=== PATIENT | female | born 1945 | race Caucasian/White ===

== ENCOUNTER 2016-12-03 17:00 | Inpatient (IN) | payer BC, OTHER ==
[~2016-12-03] VITALS: Ht 162.6 cm; Wt 108.7 kg
[~2016-12-03 17:00] MED LIST: ASPI81TA21 PO; ATV5 PO; CLOP1TAB15 PO; FURO-85 PO; INSPMPHMLG; METO25TA3 PO; NRN/300 PO; NXM/40 PO; OLME1TAB11 PO; RSTOPS OPB
[2016-12-03] MEDS ORDERED: SODIUM CHLORIDE 0.9% 1000ML 1,000 ML IV SCH (17:14)
[2016-12-03 17:25] LABS: BASO % 0.5 %; BASO ABS # 0.03 K/uL (0-0.2); COMPLETE YES; EOS % 2.5 %; HEMATOCRIT 38.6 % (37-47); IG% 0.4 %; LYMPH % 22.5 %; LYMPH ABS # 1.27 K/uL (1.2-3.4); MEAN CELL VOLUME 86.4 fL (80-100); MEAN CORPUSCULAR HEMOGLOBIN 27.7 pg (25-34); MEAN CORPUSCULAR HGB CONC 32.1 g/dl (32-36); MEAN PLATELET VOLUME 10.1 fL (7.4-10.4); MONO % 7.3 %; NEUT % 66.8 %; PLATELET COUNT 230 K/uL (130-400); RED BLOOD COUNT 4.47 M/uL (4.2-5.4); WHITE BLOOD COUNT 5.64 K/uL (4.8-10.8)
[2016-12-03 17:41] LABS: BLOOD UREA NITROGEN 21 mg/dl (7-18); BUN/CREATININE RATIO 25.8 (10-20); CALCIUM 8.6 mg/dl (8.5-10.1); CARBON DIOXIDE 25 mmol/L (21-32); CHLORIDE 111 mmol/L (98-107); CREATININE 0.83 mg/dl (0.60-1.20); GLUCOSE 163 mg/dl (70-99); POTASSIUM 4.5 mmol/L (3.5-5.1); SODIUM 142 mmol/L (136-145)
--- NOTE | 2016-12-03 18:04 | DIAGNOSTIC IMAGING REPORT ---
CT OF THE HEAD WITHOUT CONTRAST CLINICAL HISTORY: Stroke COMPARISON STUDY: Head CT June 10, 2013 and MRI of the brain January 04, 2015. CT DOSE: 709.48 mGy.cm TECHNIQUE: Helical axial images of the head were obtained without IV contrast. Automated exposure control was utilized for the study. FINDINGS: No acute intracranial hemorrhage, midline shift or mass effect is present. Ventricular system is stable. Basilar cisterns are patent. There are no extra-axial collections. Kendrick-white differentiation is maintained. There are no findings to suggest acute dural sinus thrombosis or acute territorial infarct. There are no calvarial abnormalities. Postsurgical findings within the left globe are again noted. Visualized portions of the sinuses and mastoid air cells are clear. IMPRESSION: No acute intracranial findings. Electronically signed by: Subhash Pearl M.D. 12/03/2016 6:03 PM Dictated Date/Time: 12/03/2016 5:59 PM
--- NOTE | 2016-12-03 18:34 | DIAGNOSTIC IMAGING REPORT ---
CHEST ONE VIEW PORTABLE CLINICAL HISTORY: Stroke COMPARISON STUDY: Chest radiograph and chest CT September 14, 2014. FINDINGS: The patient is rotated. An apparent lower mediastinal contour abnormality likely reflects overlying soft tissues. Old right-sided rib fracture is present. There is no evidence of pulmonary edema. There is no consolidation to suggest pneumonia. Mild cardiomegaly is unchanged. Mild elevation of the right hemidiaphragm is unchanged. IMPRESSION: No acute cardiopulmonary findings. Electronically signed by: Subhash Pearl M.D. 12/03/2016 6:32 PM Dictated Date/Time: 12/03/2016 6:31 PM
[2016-12-03] MEDS ORDERED: FURO-85 PO (18:57)
[2016-12-03] MEDS ORDERED: CARB25TA12 PO (19:00)
[2016-12-03] MEDS ORDERED: CYCL0.052 OPB (19:01)
[2016-12-03] MEDS ORDERED: LORA-741 PO (19:02)
[2016-12-03 19:12] LABS: PARTIAL THROMBOPLASTIN RATIO 1.1; PROTHROMBIN TIME (PATIENT) 10.5 SECONDS (9.0-12.0)
[2016-12-03] MEDS ORDERED: ACETAMINOPHEN 325 MG TAB PO PRN (20:45)
[2016-12-03] MEDS ORDERED: ONDANSETRON INJ 2 MG/ML 2 ML VIAL IV PRN (20:45)
[2016-12-03] MEDS ORDERED: MAGNESIUM HYDROXIDE SUSP 30 ML UDC PO PRN (20:45)
[2016-12-03] MEDS ORDERED: ALUMINUM/MAGNESIUM/SIMETH (MAALOX MAX) 30 ML UDC PO PRN (20:45)
[2016-12-03] MEDS ORDERED: POLYETHYLENE (MIRALAX) 17 GM PACK PO PRN (20:45)
--- NOTE | 2016-12-03 20:54 | History and Physical ---
History & Physical Date & Time of Service: Dec 03, 2016 at 20:28 Chief Complaint: Neuro Sx. Primary Care Physician: Damaris Vega M.D. History of Present Illness Patient is a 71 year old female with a pmh of Parkinsons's and CVA that presents with a 1 day history of weakness and facial numbness. The patient reports having a left sided throbbing headache last night and awoke this morning with left sided leg weakness and facial numbness and tingling over the left side of her face and lips. The patient reports that she was weaker on the left side more than usual, having difficulties using the left leg to walk. She mentions that her right side has been weak since her diagnosis of Parkinsons. She states that she contacted her Neurologist Dr. Gage who asked her to change one of her home medications and that she should not be concerned for a neurovascular event. She then contacted Dr. Chand office to make a future appointment and one of [facility] nurses at the clinic she spoke to recommended she come to the ED. She states that she no longer has a headache but is having some residual left sided weakness and facial numbness. She denies any vision changes , nausea, vomiting, abdominal, chest pain, diarrhea, or constipation. Past Medical/Surgical History Medical Problems: (1) CHF (congestive heart failure) Status: Chronic (2) Chronic pain Status: Chronic (3) Coronary artery disease Status: Chronic (4) CVA Status: Chronic (5) Diabetes mellitus type 2 Status: Chronic (6) Hypertensive disorder, systemic arterial Status: Chronic Surgical Problems: (1) Knee joint replacement status Status: Resolved (2) S/P appendectomy Status: Resolved (3) S/P cholecystectomy Status: Resolved Family History CHF (congestive heart failure) Social History Smoking Status: Never Smoker Drug Use: none Occupational Status: retired Immunizations History of Influenza Vaccine: No Influenza Vaccine Date: Mar 30, 2012 History of Tetanus Vaccine?: Yes Tetanus Immunization Date: Jul 11, 2012 History of Pneumococcal: Yes Pneumococcal Date: Jul 11, 2009 History of Hepatitis B Vaccine: No Multi-Drug Resistant Organisms History of MDRO: No Allergies Coded Allergies: Doxycycline (Verified Allergy, Mild, NAUSEA, 12/03/16) NAUSEA PER POST OP ORDERS FOR DOXY AND MINOCYCLINE Minocycline (Verified Allergy, Mild, NAUSEA, 12/03/16) NAUSEA PER POST OP ORDER SET Simvastatin (Verified Allergy, Mild, ALLERGY, 12/03/16) Home Medications Scheduled Aspirin Enteric Coated (Ecotrin Or Generic), 81 MG PO QPM Carbidopa/Levodopa (Sinemet 25MG/100MG), Unknown Dose PO TID Clopidogrel (Plavix), 75 MG PO DAILY Cyclosporine (Ophth) (Restasis), 1 DROP OPB BID Esomeprazole Magnesium (Nexium), 40 MG PO QAM Gabapentin (Neurontin), 300 MG PO BID Insulin Human Lispro (Insulin Humalog Pump ), 1 EA N/A UD Metoprolol Succ (Toprol Xl) (Toprol-Xl), 12.5 MG PO QPM Olmesartan Medoxomil (Benicar), 20 MG PO QPM Scheduled PRN Furosemide (Lasix), 20 MG PO BID PRN for WATER RETENTION Lorazepam (Ativan), 0.5 MG PO Q6H PRN for Anxiety Review of Systems Constitutional: No fever, No chills Eyes: No worsening of vision, No eye pain Respiratory: No cough, No wheezing, No shortness of breath Cardiovascular: No chest pain Abdomen: No pain, No nausea, No vomiting, No diarrhea Genitourinary - Female: No dysuria Neurologic: + weakness, + numbness/tingling, No memory loss, No paralysis, No vertigo Physical Exam Vital Signs Date Time Temp Pulse Resp B/P (MAP) Pulse Ox O2 Delivery O2 Flow Rate FiO2 12/03/16 19:53 62 143/74 98 Room Air 12/03/16 17:55 64 18 162/73 94 Room Air 12/03/16 17:25 94 Room Air 12/03/16 17:23 62 12/03/16 17:08 36.7 64 18 162/63 94 Room Air General Appearance: no apparent distress, + obese Head: normocephalic, atraumatic Eyes: normal inspection, PERRL, EOMI, sclerae normal Neck: supple, no carotid bruits Respiratory/Chest: chest non-tender, lungs clear, normal breath sounds Cardiovascular: regular rate, rhythm, no edema, no murmur Abdomen/GI: normal bowel sounds, non tender, soft Extremities/Musculoskelatal: no calf tenderness, no pedal edema Neurologic/Psych: 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, no motor/sensory deficits, alert, oriented x 3, + depressed affect Diagnostics Laboratory Results Results Past 24 Hours Test 12/03/16 17:04 12/03/16 17:07 12/03/16 18:28 Range/Units White Blood Count 5.64 4.8-10.8 K/uL Red Blood Count 4.47 4.2-5.4 M/uL Hemoglobin 12.4 12.0-16.0 g/dL Hematocrit 38.6 37-47 % Mean Corpuscular Volume 86.4 80-100 fL Mean Corpuscular Hemoglobin 27.7 25-34 pg Mean Corpuscular Hemoglobin Concent 32.1 32-36 g/dl Platelet Count 230 130-400 K/uL Mean Platelet Volume 10.1 7.4-10.4 fL Neutrophils (%) (Auto) 66.8 % Lymphocytes (%) (Auto) 22.5 % Monocytes (%) (Auto) 7.3 % Eosinophils (%) (Auto) 2.5 % Basophils (%) (Auto) 0.5 % Neutrophils # (Auto) 3.77 1.4-6.5 K/uL Lymphocytes # (Auto) 1.27 1.2-3.4 K/uL Monocytes # (Auto) 0.41 0.11-0.59 K/uL Eosinophils # (Auto) 0.14 0-0.5 K/uL Basophils # (Auto) 0.03 0-0.2 K/uL RDW Standard Deviation 43.7 36.4-46.3 fL RDW Coefficient of Variation 13.8 11.5-14.5 % Immature Granulocyte % (Auto) 0.4 % Immature Granulocyte # (Auto) 0.02 0.00-0.02 K/uL Sodium Level 142 136-145 mmol/L Potassium Level 4.5 3.5-5.1 mmol/L Chloride Level 111 98-107 mmol/L Carbon Dioxide Level 25 21-32 mmol/L Anion Gap 6.0 3-11 mmol/L Blood Urea Nitrogen 21 7-18 mg/dl Creatinine 0.83 0.60-1.20 mg/dl Est Creatinine Clear Calc Drug Dose 76.0 ml/min Estimated GFR () 82.8 Estimated GFR (Non- 71.4 BUN/Creatinine Ratio 25.8 10-20 Random Glucose 163 70-99 mg/dl Calcium Level 8.6 8.5-10.1 mg/dl Troponin I < 0.015 0-0.045 ng/ml Bedside Glucose 159 70-90 mg/dl Prothrombin Time 10.5 9.0-12.0 SECONDS Prothromb Time International Ratio 1.0 0.9-1.1 Activated Partial Thromboplast Time 27.3 21.0-31.0 SECONDS Partial Thromboplastin Ratio 1.1 Impression Assessment and Plan Patient is a 71 year old female that presents with a 1 day history of facial numbness and left leg weakness 1) Parkinsonism - Symptoms most likely 2/2 to acute Parkinsonian changes - Consult Neurologist Dr. Gage - Continue home Carbidopa/ Levadopa - Continue home Gabapentin 2) R/O CVA - CT Head shows no acute abnormalities - MRI brain ordered - Resume home Aspirin and Plavix 3) Hypertension - Continue home Benicar - Continue home Furosemide 4) Diabetes Mellitus - Humalog Insulin Pump 5) Anxiety - Ativan 6) GI Prophylaxis - Protonix 40mg qPM 7) DVT Prophylaxis - SCDs 8) Code Status - Full Resuscitation Level of Care Med/Surg Resuscitation Status FULL RESUSCITATION VTE Prophylaxis VTE Risk Assessment Done? Y/N: Yes Risk Level: Moderate Given or contraindicated: Jose Chavira SCD's Assessment and Plan Attending Addendum: I have physically seen and examined this patient, have directed their medical care, have supervised the medical residents activities, and agree with the H&P as noted above, with the following changes: NONE
[2016-12-03] MEDS ORDERED: LORAZEPAM 0.5 MG TAB PO PRN (21:00)
[2016-12-03] MEDS ORDERED: FUROSEMIDE 20 MG TAB PO PRN (21:00)
[2016-12-03] MEDS ORDERED: IV FLUIDS COMPLETED PRN (22:00)
[2016-12-03 22:15] VITALS: BP 151/79; PULSE 60; TEMP 36.6; O2SAT 96; Ht 162.6 cm; Wt 108.7 kg
[2016-12-03] MEDS ORDERED: GLUCAGON FOR INJ 1 MG VIAL SQ PRN (23:00)
[2016-12-03] MEDS ORDERED: GLUCOSE 10 TABS/TUBE PO PRN (23:00)
[2016-12-03] MEDS ORDERED: DEXTROSE 50% 50 ML SYR IV PRN (23:00)
[2016-12-03] MEDS ORDERED: GLUCOSE 40% GEL 15 GM TUBE PO PRN (23:00)
[2016-12-03] MEDS ORDERED: INSULIN HUMAN LISPRO (humaLOG) 100 UNITS/ML VIAL SC PRN (23:00)
[2016-12-03] MEDS: CARBIDOPA/LEVODOPA 25/100MG TAB PO SCH (23:44)
[2016-12-03] MEDS: GABAPENTIN 300 MG CAP PO SCH (23:44)
[2016-12-03] MEDS: METOPROLOL SUCC 25MG EXT REL TAB PO SCH (23:44)
[2016-12-03] MEDS: OLMESARTAN MEDOXOMIL 20 MG TAB PO SCH (23:44)
[2016-12-03] MEDS: RESTASIS~ORDER AWAITING ACTION SCH (23:45)
[2016-12-04] VITALS: BP 124/64; PULSE 58; TEMP 36.4; O2SAT 98
--- NOTE | 2016-12-04 00:45 | EMERGENCY ROOM VISIT NOTE ---
History Report prepared by Cameron: Luis Peterson Under the Supervision of: Dr. Jase Vela M.D. First contact with patient: 17:03 Stated Complaint: NEURO SX. History of Present Illness The patient is a 71 year old female who presents to the Emergency Room with complaints of worsening numbness of the left-side beginning late last night. The patient states that her numbness is worst in her left-leg and foot. She reports that her left arm does not feel numb, but it feels 'foggy and fuzzy.' The patient notes that she called her neurologist, and he said he would change her medication and did not think it was a CVA. She states that today the numbness in her face and lips worsened. The patient reports that she has a history of Parkinson's Disease that typically results in the right side of her body being weak. She notes that she did not notice her face drooping. The patient states that when she is speaking it is easy to pronounce common thoughts , but when she has to think about it, she has difficulty finding her words. She reports that her head was throbbing last night, but now it is 'foggy and fuzzy feeling.' She notes that she just started feeling something in the back of her neck. The patient denies being sick, abdominal pain, chest pain, vomiting, and diarrhea. She reports that she is currently taking Plavix because she has a history of a cerebrovascular accident. The patient states that she also has a history of diabetes mellitus and mild hypertension. Source of History: patient Onset: last night Position: other (global) Quality: other (numbness) Timing: worsening Associated Symptoms: + weakness, No chest pain, No vomiting, No abdominal pain, No diarrhea Review of Systems See HPI for pertinent positives & negatives. A total of 10 systems reviewed and were otherwise negative. Past Medical & Surgical Medical Problems: (1) CHF (congestive heart failure) (2) Chronic pain (3) Coronary artery disease (4) CVA (5) Diabetes mellitus type 2 (6) Hypertensive disorder, systemic arterial (7) Parkinsons disease Surgical Problems: (1) Knee joint replacement status (2) S/P appendectomy (3) S/P cholecystectomy Family History CHF (congestive heart failure) Social History Smoking Status: Unknown if Ever Smoked Alcohol Use: occasionally Drug Use: none Housing Status: lives alone Occupation Status: retired Current/Historical Medications Scheduled Aspirin Enteric Coated (Ecotrin Or Generic), 81 MG PO QPM Carbidopa/Levodopa (Sinemet 25MG/100MG), Unknown Dose PO TID Clopidogrel (Plavix), 75 MG PO DAILY Cyclosporine (Ophth) (Restasis), 1 DROP OPB BID Esomeprazole Magnesium (Nexium), 40 MG PO QAM Gabapentin (Neurontin), 300 MG PO BID Insulin Human Lispro (Insulin Humalog Pump ), 1 EA N/A UD Metoprolol Succ (Toprol Xl) (Toprol-Xl), 12.5 MG PO QPM Olmesartan Medoxomil (Benicar), 20 MG PO QPM Scheduled PRN Furosemide (Lasix), 20 MG PO BID PRN for WATER RETENTION Lorazepam (Ativan), 0.5 MG PO Q6H PRN for Anxiety Allergies Coded Allergies: Doxycycline (Verified Allergy, Mild, NAUSEA, 12/03/16) NAUSEA PER POST OP ORDERS FOR DOXY AND MINOCYCLINE Minocycline (Verified Allergy, Mild, NAUSEA, 12/03/16) NAUSEA PER POST OP ORDER SET Simvastatin (Verified Allergy, Mild, ALLERGY, 12/03/16) Physical Exam Vital Signs Date Time Temp Pulse Resp B/P (MAP) Pulse Ox O2 Delivery O2 Flow Rate FiO2 12/03/16 19:53 62 143/74 98 Room Air 12/03/16 17:55 64 18 162/73 94 Room Air 12/03/16 17:25 94 Room Air 12/03/16 17:23 62 12/03/16 17:08 36.7 64 18 162/63 94 Room Air Physical Exam Constitutional: Vital signs reviewed. Eyes: Pupils are equal round reactive to light. Conjunctiva are noninjected. ENT: Pharynx is clear without erythema or exudate. Mucous membranes are moist. Neck supple without meningeal signs. Respiratory: Clear to auscultation bilaterally. Breath sounds are equal bilaterally. Cardiovascular: Regular rate and rhythm. No rubs or gallops. GI: Soft, nondistended and nontender. Bowel sounds are present. Musculoskeletal: No peripheral edema. No lower extremity tenderness. Integumentary: No cyanosis. Neurological: The patient is awake and alert. Cranial nerves II-XII are intact. Motor is 5 out of 5 all extremities. Sensation is intact to light touch all extremities, with dysesthesia below the left knee. Normal speech. No pronator drift. No limb ataxia. Resting tremor. Psychiatric: Normal affect. Medical Decision & Procedures ER Provider Diagnostic Interpretation: Radiology results as stated below per my review and the radiologist's interpretation: CT OF THE HEAD WITHOUT CONTRAST CLINICAL HISTORY: Stroke COMPARISON STUDY: Head CT June 10, 2013 and MRI of the brain January 04, 2015. CT DOSE: 709.48 mGy.cm TECHNIQUE: Helical axial images of the head were obtained without IV contrast. Automated exposure control was utilized for the study. FINDINGS: No acute intracranial hemorrhage, midline shift or mass effect is present. Ventricular system is stable. Basilar cisterns are patent. There are no extra-axial collections. Kendrick-white differentiation is maintained. There are no findings to suggest acute dural sinus thrombosis or acute territorial infarct. There are no calvarial abnormalities. Postsurgical findings within the left globe are again noted. Visualized portions of the sinuses and mastoid air cells are clear. IMPRESSION: No acute intracranial findings. Electronically signed by: Subhash Pearl M.D. 12/03/2016 6:03 PM Dictated Date/Time: 12/03/2016 5:59 PM CHEST ONE VIEW PORTABLE CLINICAL HISTORY: Stroke COMPARISON STUDY: Chest radiograph and chest CT September 14, 2014. FINDINGS: The patient is rotated. An apparent lower mediastinal contour abnormality likely reflects overlying soft tissues. Old right-sided rib fracture is present. There is no evidence of pulmonary edema. There is no consolidation to suggest pneumonia. Mild cardiomegaly is unchanged. Mild elevation of the right hemidiaphragm is unchanged. IMPRESSION: No acute cardiopulmonary findings. Electronically signed by: Subhash Pearl M.D. 12/03/2016 6:32 PM Dictated Date/Time: 12/03/2016 6:31 PM Laboratory Results 12/03/16 17:04 Red Blood Count 4.47, Mean Corpuscular Volume 86.4, Mean Corpuscular Hemoglobin 27.7, Mean Corpuscular Hemoglobin Concent 32.1, Mean Platelet Volume 10.1, Neutrophils (%) (Auto) 66.8, Lymphocytes (%) (Auto) 22.5, Monocytes (%) (Auto) 7.3, Eosinophils (%) (Auto) 2.5, Basophils (%) (Auto) 0.5, Neutrophils # (Auto) 3.77, Lymphocytes # (Auto) 1.27, Monocytes # (Auto) 0.41, Eosinophils # (Auto) 0.14, Basophils # (Auto) 0.03 12/03/16 17:04 Test 12/03/16 17:04 12/03/16 17:07 12/03/16 17:58 12/03/16 18:28 White Blood Count 5.64 K/uL (4.8-10.8) Red Blood Count 4.47 M/uL (4.2-5.4) Hemoglobin 12.4 g/dL (12.0-16.0) Hematocrit 38.6 % (37-47) Mean Corpuscular Volume 86.4 fL (80-100) Mean Corpuscular Hemoglobin 27.7 pg (25-34) Mean Corpuscular Hemoglobin Concent 32.1 g/dl (32-36) Platelet Count 230 K/uL (130-400) Mean Platelet Volume 10.1 fL (7.4-10.4) Neutrophils (%) (Auto) 66.8 % Lymphocytes (%) (Auto) 22.5 % Monocytes (%) (Auto) 7.3 % Eosinophils (%) (Auto) 2.5 % Basophils (%) (Auto) 0.5 % Neutrophils # (Auto) 3.77 K/uL (1.4-6.5) Lymphocytes # (Auto) 1.27 K/uL (1.2-3.4) Monocytes # (Auto) 0.41 K/uL (0.11-0.59) Eosinophils # (Auto) 0.14 K/uL (0-0.5) Basophils # (Auto) 0.03 K/uL (0-0.2) RDW Standard Deviation 43.7 fL (36.4-46.3) RDW Coefficient of Variation 13.8 % (11.5-14.5) Immature Granulocyte % (Auto) 0.4 % Immature Granulocyte # (Auto) 0.02 K/uL (0.00-0.02) Anion Gap 6.0 mmol/L (3-11) Est Creatinine Clear Calc Drug Dose 76.0 ml/min Estimated GFR () 82.8 Estimated GFR (Non- 71.4 BUN/Creatinine Ratio 25.8 (10-20) Calcium Level 8.6 mg/dl (8.5-10.1) Troponin I < 0.015 ng/ml (0-0.045) Bedside Glucose 159 mg/dl (70-90) Bedside Prothrombin Time INR 1.0 (0.9-1.1) Prothrombin Time 10.5 SECONDS (9.0-12.0) Prothromb Time International Ratio 1.0 (0.9-1.1) Activated Partial Thromboplast Time 27.3 SECONDS (21.0-31.0) Partial Thromboplastin Ratio 1.1 Laboratory results as reviewed by me. Medications Administered Medications (Trade) Dose Ordered Sig/Claudio Route Start Time Stop Time Status Last Admin Dose Admin Sodium Chloride 1,000 ml @ 50 mls/hr Q20H IV 12/03/16 17:14 12/03/16 22:51 DC 12/03/16 18:22 50 MLS/HR ECG Indication: weakness Rate (beats per minute): 60 Rhythm: sinus rhythm Findings: 1st degree AV block, left axis deviation, no ectopy, other (Low voltage QRS) ED Course 1705: The patient was evaluated in room B04A. A complete history and physical exam was performed. 1714: Ordered Sodium Chloride 1000 ml @ 50 mls/hr IV 1854: I reevaluated the patient, and she is not showing improvement of her symptoms. I discussed her exam findings with her. 2020: I discussed the patient's case with Dr. Lopez, [facility] Hospitalist. The patient will be evaluated for further treatment. Medical Decision This is a 71-year-old female who presents with left-sided numbness. Differential diagnosis includes TIA, CVA, intracranial hemorrhage, intracranial mass, metabolic derangement. I did perform a limited focused review of portions of the patient's old chart on the electronic medical record. The patient has had no recent pertinent visits to this hospital. Medication Reconciliation: I attest that I have personally reviewed the patient' s current medication list. Blood Pressure Screening: Patient was found to have an elevated blood pressure and was referred to their primary doctor for recheck and further treatment. I did evaluate the patient as noted above. She is presenting with neurologic symptoms since last night. She is not a IV TPA candidate as her symptoms started yesterday. She does have some sensory deficits on the left side. IV access was established. The patient was placed on a continuous monitoring analyst. I did order and personally review the patient's 12-lead EKG and chest x-ray as described above. I did order and review the patient's blood work as noted in the electronic medical record. I did order a CT of the head. I did review the images myself as well as the radiology report as described above. There is no evidence of acute CVA. I did reassess the patient. She does have persistent symptoms. I did recommend hospitalization for MRI and further evaluation. I did discuss case with the hospitalist and case filler. Consults Time Called: 1848 Consulting Physician: Dr. Lopez, [facility] Hospitalist Returned Call: 2020 I discussed the patient's case with Dr. Lopez, [facility] Hospitalist. The patient will be evaluated for further treatment. Impression Primary Impression: Left leg weakness Additional Impressions: Left facial numbness Left leg numbness Scribe Attestation The scribe's documentation has been prepared under my direct and personally reviewed by me in its entirety. I confirm that the note above accurately reflects all work, treatment, procedures, and medical decision making performed by me. Departure Information Dispostion Being Evaluated By Hospitalist Referrals Damaris Vega M.D. (PCP) Problem Qualifiers
[2016-12-04] MEDS ORDERED: GADAVIST IV PRN (03:15)
--- NOTE | 2016-12-04 06:53 | DIAGNOSTIC IMAGING REPORT ---
MRI OF THE BRAIN WITHOUT AND WITH IV CONTRAST CLINICAL HISTORY: Left sided facial numbness COMPARISON STUDY: 01/04/2015 TECHNIQUE: Utilizing a 1.5 Rosemarie magnet and dedicated coil, multiplanar, multiecho imaging of the brain was performed pre and postcontrast administration. IV administration of 8.5 mL of Gadavist contrast was uneventful. FINDINGS: Diffusion-weighted images are negative for an acute ischemic event. Mild chronic small vessel change of periventricular deep right matter regions. Ventricular system is midline. An enhancing lesion of the right internal auditory canal is slightly increased in prominence in the prior study. Current maximum dimensions are 1.2 cm slightly increased from 1.0 cm. Left internal auditory canals unremarkable. Sella and parasellar regions are unremarkable. IMPRESSION: 1. Slight increase in size of a right acoustic neuroma. 2. Mild atrophy. 3. Mild chronic small vessel change. 4. No evidence for an acute ischemic event. Electronically signed by: Chandra Villalpando M.D. 12/04/2016 6:52 AM Dictated Date/Time: 12/04/2016 6:50 AM
[2016-12-04 07:18] VITALS: BP 100/65; PULSE 50; TEMP 36.5; O2SAT 98
[2016-12-04] MEDS: RESTASIS~ORDER AWAITING ACTION SCH ×3 (08:00→20:53)
[2016-12-04] MEDS: PANTOprazole SOD 40 MG TAB PO SCH (08:05)
[2016-12-04] MEDS: CARBIDOPA/LEVODOPA 25/100MG TAB PO SCH ×3 (08:05→20:50)
[2016-12-04] MEDS: GABAPENTIN 300 MG CAP PO SCH ×2 (08:05→20:49)
--- NOTE | 2016-12-04 08:50 | Progress Note ---
Subjective Date of Service: Dec 04, 2016. Subjective pt has good resolution of her symptoms, reinforcing diagnosis of atypical migraine as suggested by Dr Gage, all imaging studies are normal, pt however admits postural instability and agrees to evaluation by PT/OT for possible rehab evaluation incidentally noted acoustic neuroma size increase is mild and will be followed by Dr Gage Problem List Medical Problems: (1) Left facial numbness Status: Acute (2) Left leg numbness Status: Acute (3) Left leg weakness Status: Acute Review of Systems Constitutional: No fever, No chills Respiratory: No cough, No sputum Cardiac: No chest pain, No orthopnea Abdomen: No pain, No nausea Musculoskeletal: No joint pain, No muscle pain Female : No dysuria, No urinary frequency Neurologic: + weakness, + balance problems Psychiatric: No depression symptoms, No anhedonism Objective Vital Signs Date Time Temp Pulse Resp B/P (MAP) Pulse Ox O2 Delivery O2 Flow Rate FiO2 12/04/16 07:18 36.5 50 16 100/65 (77) 98 Room Air 12/04/16 00:00 Room Air 12/04/16 00:00 36.4 58 20 124/64 (84) 98 Room Air 12/03/16 22:15 36.6 60 18 151/79 96 Room Air 12/03/16 21:33 70 17 133/53 98 12/03/16 19:53 62 143/74 98 Room Air 12/03/16 17:55 64 18 162/73 94 Room Air 12/03/16 17:25 94 Room Air 12/03/16 17:23 62 12/03/16 17:08 36.7 64 18 162/63 94 Room Air Physical Exam General Appearance: WD/WN, + mild distress Eyes: PERRL, EOMI Neck: supple, no JVD Respiratory/Chest: chest non-tender, lungs clear, normal breath sounds Cardiovascular: regular rate, rhythm, no murmur Abdomen: normal bowel sounds, non tender, soft Extremities: no pedal edema, no calf tenderness Neurologic/Psychiatric: alert, oriented x 3, + abnormal gait Laboratory Results Last 24 Hours Test 12/03/16 17:04 12/03/16 17:07 12/03/16 17:58 12/03/16 18:28 White Blood Count 5.64 K/uL Red Blood Count 4.47 M/uL Hemoglobin 12.4 g/dL Hematocrit 38.6 % Mean Corpuscular Volume 86.4 fL Mean Corpuscular Hemoglobin 27.7 pg Mean Corpuscular Hemoglobin Concent 32.1 g/dl Platelet Count 230 K/uL Mean Platelet Volume 10.1 fL Neutrophils (%) (Auto) 66.8 % Lymphocytes (%) (Auto) 22.5 % Monocytes (%) (Auto) 7.3 % Eosinophils (%) (Auto) 2.5 % Basophils (%) (Auto) 0.5 % Neutrophils # (Auto) 3.77 K/uL Lymphocytes # (Auto) 1.27 K/uL Monocytes # (Auto) 0.41 K/uL Eosinophils # (Auto) 0.14 K/uL Basophils # (Auto) 0.03 K/uL RDW Standard Deviation 43.7 fL RDW Coefficient of Variation 13.8 % Immature Granulocyte % (Auto) 0.4 % Immature Granulocyte # (Auto) 0.02 K/uL Sodium Level 142 mmol/L Potassium Level 4.5 mmol/L Chloride Level 111 mmol/L Carbon Dioxide Level 25 mmol/L Anion Gap 6.0 mmol/L Blood Urea Nitrogen 21 mg/dl Creatinine 0.83 mg/dl Est Creatinine Clear Calc Drug Dose 76.0 ml/min Estimated GFR () 82.8 Estimated GFR (Non- 71.4 BUN/Creatinine Ratio 25.8 Random Glucose 163 mg/dl Calcium Level 8.6 mg/dl Troponin I < 0.015 ng/ml Bedside Glucose 159 mg/dl Bedside Prothrombin Time INR 1.0 Prothrombin Time 10.5 SECONDS Prothromb Time International Ratio 1.0 Activated Partial Thromboplast Time 27.3 SECONDS Partial Thromboplastin Ratio 1.1 Test 12/04/16 07:32 Bedside Glucose 72 mg/dl Assessment and Plan Patient is a 71 year old female that presents with a 1 day history of facial numbness and left leg weakness, history of CVA and Parkinson disease, risk factors of HTN and diabetes but does have anxiety history Left sided weakness, H/o CVA, Parkinsonism, felt to be atypical migraine CT Head shows no acute abnormalities MRI brain also without acute CVA Aspirin and Plavix, Neurologist Dr. Gage feels atypical migrane and also adusted Carbidopa/ Levadopa to help with complaints of movement issues, PT /Ot evaluation as may need inpatient stay for rehab for parkinsons disease, continue Gabapentin Hypertension Benicar and lasix Diabetes Mellitus- Humalog Insulin Pump Anxiety Ativan DVT Prophylaxis SCDs Full Resuscitation
--- NOTE | 2016-12-04 10:17 | Neurology Consultation ---
Neurology Consultation Date of Consultation: Dec 04, 2016. Attending Physician: Jase Mayo M.D. Primary Care Physician: Damaris Vega M.D. Reason for Consultation: Parkinson's disease, headache, numbness History of Present Illness Source: patient, clinic records, hospital records The patient is a 71-year-old female who is known to me. She has a history of idiopathic right gage-Parkinson's disease that was diagnosed several years ago. She has been taking Sinemet for her Parkinson's disease. This medication has provided fair symptomatic control although her dosage has been low. Due to some issues with medication compliance her Sinemet was discontinued in favor of a trial of Rytary about 3 weeks ago. Rytary is a new extended release version of carbidopa levodopa. The patient had contacted me 2 nights ago complaining that her Parkinson's seem to be a bit worse. She complained that she was having more difficulty walking around at home and lifting her legs. These particular symptoms have been present for at least 2 weeks and coincided with the switch from Sinemet to Rytary. I had recommended discontinuing the Rytary and restarting her regular Sinemet 25/100 mg 1 tablet 3 times per day. The patient reports that this medication change was helpful and seemed to improve her walking and Parkinson symptoms in general. However, yesterday, the patient developed a throbbing left-sided headache with some associated numbness involving only the left side of the face. She became increasingly concerned that she may be having a stroke and presented to the emergency department for further evaluation. Past medical history is notable for complex migraine although she has not had one of these episodes in several years. Currently, the patient reports that her throbbing headache and left facial numbness have resolved. I did review the images and radiologist's interpretation of the recently completed brain MRI. There is no evidence of acute or subacute stroke. No significant parenchymal disease. There is mild atrophy as well as a right acoustic neuroma which has been identified previously. The neuroma has increased slightly in size compared to her previous study. The patient does not have any hearing loss, or vertigo. Past Medical/Surgical History Medical Problems: (1) Left facial numbness Status: Acute (2) Left leg numbness Status: Acute (3) Left leg weakness Status: Acute Social History Smoking Status: Never smoker Drug Use: none Housing Status: lives alone Occupation Status: retired Allergies Coded Allergies: Doxycycline (Verified Allergy, Mild, NAUSEA, 12/03/16) NAUSEA PER POST OP ORDERS FOR DOXY AND MINOCYCLINE Minocycline (Verified Allergy, Mild, NAUSEA, 12/03/16) NAUSEA PER POST OP ORDER SET Simvastatin (Verified Allergy, Mild, ALLERGY, 12/03/16) Current Inpatient Medications Current Inpatient Medications Medications (Trade) Dose Ordered Sig/Claudio Route Start Time Stop Time Status Last Admin Dose Admin Acetaminophen (Tylenol Tab) 650 mg Q4H PRN PO 12/03/16 20:45 01/02/17 20:44 Al Hydrox/Mg Hydrox/Simethicone (Maalox Max Susp) 15 ml Q4H PRN PO 12/03/16 20:45 01/02/17 20:44 Magnesium Hydroxide (Milk Of Magnesia Susp) 30 ml Q6H PRN PO 12/03/16 20:45 01/02/17 20:44 Polyethylene (Miralax Powder Packet) 17 gm DAILY PRN PO 12/03/16 20:45 01/02/17 20:44 Ondansetron HCl (Zofran Inj) 4 mg Q6H PRN IV 12/03/16 20:45 01/02/17 20:44 Furosemide (Lasix Tab) 20 mg BID PRN PO 12/03/16 21:00 01/02/17 20:59 Gabapentin (Neurontin Cap) 300 mg BID PO 12/03/16 21:00 01/02/17 20:59 12/04/16 08:05 300 MG Lorazepam (Ativan Tab) 0.5 mg Q6H PRN PO 12/03/16 21:00 01/02/17 20:59 Metoprolol Succinate (Toprol Xl Tab) 12.5 mg QPM PO 12/03/16 21:00 01/02/17 20:59 12/03/16 23:44 12.5 MG Olmesartan (Benicar Tab) 20 mg QPM PO 12/03/16 21:00 01/02/17 20:59 12/03/16 23:44 20 MG Miscellaneous Information (Order Awaiting Action) 1 ea QS N/A 12/04/16 00:00 01/03/17 00:00 Carbidopa/Levodopa (Sinemet 25/ 100MG Tab) 1 tab TID PO 12/03/16 21:00 01/02/17 20:59 12/04/16 08:05 1 TAB Pantoprazole Sodium (Protonix Tab) 40 mg QAM PO 12/04/16 09:00 01/03/17 08:59 12/04/16 08:05 40 MG Miscellaneous (Iv Fluids Completed) 1 ea PRN PRN N/A 12/03/16 22:00 12/03/17 21:59 Insulin Human Lispro (HumaLOG INSULIN PUMP) 1 ea ACHS N/A 12/04/16 06:30 01/03/17 06:29 12/04/16 08:04 1 EA Insulin Human Lispro (humaLOG) SLIDING SCALE PRN PRN SC 12/03/16 23:00 01/02/17 22:59 Glucose (Glucose 40% Gel) UD PRN PO 12/03/16 23:00 01/02/17 22:59 Glucose (Glucose Chew Tab) 1 tabs UD PRN PO 12/03/16 23:00 01/02/17 22:59 Glucagon (Glucagon Inj) 1 mg UD PRN SQ 12/03/16 23:00 01/02/17 22:59 Dextrose (Dextrose 50% 50ML Syringe) 50 ml UD PRN IV 12/03/16 23:00 01/02/17 22:59 Gadobutrol (Gadavist) 10 mmol UD PRN IV 12/04/16 03:15 12/08/16 03:14 Physical Exam Vital Signs (Past 24 Hrs): Date Time Temp Pulse Resp B/P (MAP) Pulse Ox O2 Delivery O2 Flow Rate FiO2 12/04/16 08:00 Room Air 12/04/16 07:18 36.5 50 16 100/65 (77) 98 Room Air 12/04/16 00:00 Room Air 12/04/16 00:00 36.4 58 20 124/64 (84) 98 Room Air 12/03/16 22:15 36.6 60 18 151/79 96 Room Air 12/03/16 21:33 70 17 133/53 98 12/03/16 19:53 62 143/74 98 Room Air 12/03/16 17:55 64 18 162/73 94 Room Air 12/03/16 17:25 94 Room Air 12/03/16 17:23 62 12/03/16 17:08 36.7 64 18 162/63 94 Room Air The patient is alert and fully oriented. Attention and concentration normal. Recent and remote memory intact. Normal spontaneous speech pattern. Fund of knowledge normal. Visual godoy full to confrontation. Decreased visual acuity for the left eye. The left pupil is round and react sluggishly to light. The right pupil is round, slightly smaller than the left, and reacts well to light. Eye movements are intact. However, the left eye is slightly laterally deviated in primary gaze. Facial sensation intact. There is normal facial strength. No facial droop. Palate elevates to midline. Tongue protrudes to midline. Shoulder shrug and hearing intact bilaterally. There is no dysmetria with finger to nose or heel to albright. Sensation intact for the arms and legs. Deep tendon reflexes are normoactive and symmetric. Plantar responses downgoing. Muscle strength is normal for the arms and legs. There is mild rigidity with testing of the right upper extremity. An intermittent right upper extremity rest tremor is also observed. Patient exhibits a shuffling gait pattern with associated reduced arm swing on the right. Laboratory Results Past 24 Hours: 12/03/16 17:04 Red Blood Count 4.47, Mean Corpuscular Volume 86.4, Mean Corpuscular Hemoglobin 27.7, Mean Corpuscular Hemoglobin Concent 32.1, Mean Platelet Volume 10.1, Neutrophils (%) (Auto) 66.8, Lymphocytes (%) (Auto) 22.5, Monocytes (%) (Auto) 7.3, Eosinophils (%) (Auto) 2.5, Basophils (%) (Auto) 0.5, Neutrophils # (Auto) 3.77, Lymphocytes # (Auto) 1.27, Monocytes # (Auto) 0.41, Eosinophils # (Auto) 0.14, Basophils # (Auto) 0.03 12/03/16 17:04 Test 12/03/16 17:04 12/03/16 17:58 12/03/16 18:28 12/04/16 07:32 White Blood Count 5.64 K/uL (4.8-10.8) Red Blood Count 4.47 M/uL (4.2-5.4) Hemoglobin 12.4 g/dL (12.0-16.0) Hematocrit 38.6 % (37-47) Mean Corpuscular Volume 86.4 fL (80-100) Mean Corpuscular Hemoglobin 27.7 pg (25-34) Mean Corpuscular Hemoglobin Concent 32.1 g/dl (32-36) Platelet Count 230 K/uL (130-400) Mean Platelet Volume 10.1 fL (7.4-10.4) Neutrophils (%) (Auto) 66.8 % Lymphocytes (%) (Auto) 22.5 % Monocytes (%) (Auto) 7.3 % Eosinophils (%) (Auto) 2.5 % Basophils (%) (Auto) 0.5 % Neutrophils # (Auto) 3.77 K/uL (1.4-6.5) Lymphocytes # (Auto) 1.27 K/uL (1.2-3.4) Monocytes # (Auto) 0.41 K/uL (0.11-0.59) Eosinophils # (Auto) 0.14 K/uL (0-0.5) Basophils # (Auto) 0.03 K/uL (0-0.2) RDW Standard Deviation 43.7 fL (36.4-46.3) RDW Coefficient of Variation 13.8 % (11.5-14.5) Immature Granulocyte % (Auto) 0.4 % Immature Granulocyte # (Auto) 0.02 K/uL (0.00-0.02) Anion Gap 6.0 mmol/L (3-11) Est Creatinine Clear Calc Drug Dose 76.0 ml/min Estimated GFR () 82.8 Estimated GFR (Non- 71.4 BUN/Creatinine Ratio 25.8 (10-20) Calcium Level 8.6 mg/dl (8.5-10.1) Troponin I < 0.015 ng/ml (0-0.045) Bedside Prothrombin Time INR 1.0 (0.9-1.1) Prothrombin Time 10.5 SECONDS (9.0-12.0) Prothromb Time International Ratio 1.0 (0.9-1.1) Activated Partial Thromboplast Time 27.3 SECONDS (21.0-31.0) Partial Thromboplastin Ratio 1.1 Bedside Glucose 72 mg/dl (70-90) Impression Mild to moderate idiopathic right gage-Parkinson's disease with slight symptomatic progression coinciding with switching from regular release Sinemet to Rytary about 3 weeks ago. These symptoms have modestly improved, however since switching back to regular release Sinemet. This patient's throbbing headache and left facial numbness is most likely consistent with an episode of complex migraine which has resolved. She has a history of complex migraine although this issue has been stable for several years. The recent episode may been triggered by stress associated with the recent changes to her Parkinson's management. There is no evidence of an acute or subacute stroke on the recently completed brain MRI. Plan Increase Sinemet to 1.5 tablets 3 times per day. At this patient follow with me in clinic. No further immediate recommendations.
[2016-12-04 15:49] VITALS: BP 119/65; PULSE 58; TEMP 36.4; O2SAT 95
[2016-12-04 16:00] VITALS: O2SAT 95
[2016-12-04] MEDS: OLMESARTAN MEDOXOMIL 20 MG TAB PO SCH (20:49)
[2016-12-04] MEDS: METOPROLOL SUCC 25MG EXT REL TAB PO SCH (20:50)
[2016-12-05] VITALS (7 sets, daily range): BP systolic 112–134; BP diastolic 52–70; PULSE 54–69; TEMP 36.5–36.8; O2SAT 95–97
[2016-12-05] MEDS: RESTASIS~ORDER AWAITING ACTION SCH ×2 (08:00→15:37)
[2016-12-05] MEDS: GABAPENTIN 300 MG CAP PO SCH ×2 (08:36→21:18)
[2016-12-05] MEDS: CARBIDOPA/LEVODOPA 25/100MG TAB PO SCH ×3 (08:37→21:19)
[2016-12-05] MEDS: PANTOprazole SOD 40 MG TAB PO SCH (08:37)
--- NOTE | 2016-12-05 15:42 | Progress Note ---
Subjective Date of Service: Dec 05, 2016. Subjective pt feels much better, she is still unsteady of gait and PT/OT is recommending rehab, no further headaches Problem List Medical Problems: (1) Left facial numbness Status: Acute (2) Left leg numbness Status: Acute (3) Left leg weakness Status: Acute Review of Systems Constitutional: No fever, No chills Respiratory: No cough, No shortness of breath Cardiac: No chest pain, No edema Abdomen: No pain, No nausea, No vomiting, No diarrhea Neurologic: + memory loss, + weakness, + balance problems Psychiatric: + depression symptoms, No anxiety Objective Vital Signs Date Time Temp Pulse Resp B/P (MAP) Pulse Ox O2 Delivery O2 Flow Rate FiO2 12/05/16 08:51 97 Room Air 12/05/16 07:52 36.5 54 16 134/66 (88) 97 Room Air 12/05/16 00:01 36.5 59 18 132/70 (90) 96 Room Air 12/05/16 00:00 Room Air 12/04/16 20:00 Room Air 12/04/16 16:00 95 Room Air 12/04/16 15:49 36.4 58 20 119/65 (83) 95 Room Air Physical Exam General Appearance: WD/WN, + mild distress Eyes: PERRL, + pertinent finding (straismus) Respiratory/Chest: chest non-tender, lungs clear, normal breath sounds Cardiovascular: regular rate, rhythm, + systolic murmur Abdomen: normal bowel sounds, non tender, soft Extremities: no pedal edema, no calf tenderness Neurologic/Psychiatric: alert, oriented x 3, + pertinent finding (tremor consistent with PD) Laboratory Results Last 24 Hours Test 12/04/16 11:09 12/04/16 11:10 12/04/16 12:05 12/04/16 17:13 Bedside Glucose 53 mg/dl 56 mg/dl 97 mg/dl 80 mg/dl Test 12/04/16 20:45 12/04/16 21:32 12/05/16 05:49 12/05/16 07:26 Bedside Glucose 55 mg/dl 95 mg/dl 108 mg/dl 94 mg/dl Assessment and Plan Patient is a 71 year old female that presents with a 1 day history of facial numbness and left leg weakness, history of CVA and Parkinson disease, risk factors of HTN and diabetes but does have anxiety history Left sided weakness, H/o CVA, Parkinsonism, felt to be atypical migraine, no recurrence of symptoms CT Head shows no acute abnormalities MRI brain also without acute CVA Aspirin and Plavix, Neurologist Dr. Gage feels atypical migraine and also adjusted Carbidopa/ Levadopa to help with complaints of movement issues, PT /Ot evaluation recommend inpatient stay for rehab for parkinsons disease, continue Gabapentin Hypertension controlled Benicar and lasix Diabetes Mellitus- some lows, pt is managing Humalog Insulin Pump, states usually has pm snack Anxiety good control Ativan DVT Prophylaxis SCDs Full Resuscitation
[2016-12-05] MEDS: METOPROLOL SUCC 25MG EXT REL TAB PO SCH (21:18)
[2016-12-05] MEDS: OLMESARTAN MEDOXOMIL 20 MG TAB PO SCH (21:18)
--- NOTE | 2016-12-06 07:45 | Progress Note ---
Subjective Date of Service: Dec 06, 2016. Subjective pt state she feels better each day and her primary motivator is to improve at PT /Ot to eventually return to home. no new symptoms Problem List Medical Problems: (1) Left facial numbness Status: Acute (2) Left leg numbness Status: Acute (3) Left leg weakness Status: Acute Review of Systems Constitutional: No fever, No chills, No weakness Cardiac: No chest pain, No edema, No claudication Abdomen: No pain, No nausea, No vomiting, No diarrhea Female : No dysuria, No urinary frequency Neurologic: + weakness, + balance problems, + problem reported (tremor), No memory loss Psychiatric: No depression symptoms, No anhedonism Objective Vital Signs Date Time Temp Pulse Resp B/P (MAP) Pulse Ox O2 Delivery O2 Flow Rate FiO2 12/06/16 00:00 Room Air 12/05/16 22:54 36.8 69 18 126/52 (76) 95 Room Air 12/05/16 16:12 97 Room Air 12/05/16 15:37 36.8 60 14 112/60 (77) 97 Room Air 12/05/16 08:51 97 Room Air 12/05/16 08:00 97 Room Air 12/05/16 07:52 36.5 54 16 134/66 (88) 97 Room Air Physical Exam General Appearance: WD/WN, + mild distress Neck: supple, no JVD Respiratory/Chest: chest non-tender, lungs clear, normal breath sounds Cardiovascular: regular rate, rhythm, no murmur Abdomen: normal bowel sounds, non tender, soft Extremities: no pedal edema, no calf tenderness Neurologic/Psychiatric: alert, oriented x 3 Laboratory Results Last 24 Hours Test 12/05/16 11:17 12/05/16 16:23 12/05/16 19:52 12/05/16 20:56 Bedside Glucose 70 mg/dl 82 mg/dl 77 mg/dl 67 mg/dl Test 12/05/16 22:02 12/06/16 02:22 Bedside Glucose 89 mg/dl 100 mg/dl Assessment and Plan Patient is a 71 year old female that presents with a 1 day history of facial numbness and left leg weakness, history of CVA and Parkinson disease, risk factors of HTN and diabetes but does have anxiety history Left sided weakness, H/o CVA, Parkinsonism, felt to be atypical migraine, no recurrence of symptoms CT Head shows no acute abnormalities MRI brain also without acute CVA Aspirin and Plavix, Neurologist Dr. Gage feels atypical migraine and also adjusted Carbidopa/ Levadopa to help with complaints of movement issues, PT /Ot evaluation recommend inpatient stay for rehab for parkinsons disease, continue Gabapentin Hypertension continues to be controlled Benicar and lasix Diabetes Mellitus- some lows, pt is managing Humalog Insulin Pump, states usually has pm snack Anxiety good control Ativan DVT Prophylaxis SCDs Full Resuscitation
[2016-12-06 07:54] VITALS: BP 138/69; PULSE 57; TEMP 36.6; O2SAT 97
[2016-12-06 08:00] VITALS: O2SAT 97
[2016-12-06] MEDS: RESTASIS~ORDER AWAITING ACTION SCH ×3 (08:00→15:25)
[2016-12-06] MEDS: GABAPENTIN 300 MG CAP PO SCH ×2 (08:16→21:12)
[2016-12-06] MEDS: CARBIDOPA/LEVODOPA 25/100MG TAB PO SCH ×3 (08:17→21:13)
[2016-12-06] MEDS: PANTOprazole SOD 40 MG TAB PO SCH (08:17)
[2016-12-06] MEDS: CLOPIDOGREL BISULFATE 75 MG TAB PO SCH (09:24)
[2016-12-06] MEDS ORDERED: ASPIRIN 81 MG ECTAB PO ONE (14:00)
[2016-12-06 15:50] VITALS: BP 121/78; PULSE 55; TEMP 36.8; O2SAT 95
[2016-12-06 16:12] VITALS: O2SAT 97
[2016-12-06] MEDS: OLMESARTAN MEDOXOMIL 20 MG TAB PO SCH (21:13)
[2016-12-06] MEDS: METOPROLOL SUCC 25MG EXT REL TAB PO SCH (21:13)
[2016-12-06 23:18] VITALS: BP 131/72; PULSE 59; TEMP 36.7; O2SAT 95
[2016-12-07 07:31] VITALS: BP 126/77; PULSE 55; TEMP 36.5; O2SAT 97
[2016-12-07] MEDS: RESTASIS~ORDER AWAITING ACTION SCH ×3 (08:00→16:00)
[2016-12-07 08:10] VITALS: O2SAT 97
[2016-12-07] MEDS: CLOPIDOGREL BISULFATE 75 MG TAB PO SCH (08:35)
[2016-12-07] MEDS: CARBIDOPA/LEVODOPA 25/100MG TAB PO SCH ×3 (08:35→21:13)
[2016-12-07] MEDS: ASPIRIN 81 MG ECTAB PO SCH (08:35)
[2016-12-07] MEDS: GABAPENTIN 300 MG CAP PO SCH ×2 (08:35→21:13)
[2016-12-07] MEDS: PANTOprazole SOD 40 MG TAB PO SCH (08:35)
--- NOTE | 2016-12-07 11:58 | Hospitalist Progress Note ---
Hospitalist Progress Note Date of Service Dec 07, 2016. Subjective Pt evaluation today including: conversation w/ patient, conversation w/ family (Friend- at bedside ), physical exam, chart review, lab review, review of studies, review of inpatient medication list Voiding: no voiding problems, no incontinence Patient states she is feeling well this AM. She is eating and drinking OK. Admits to weakness, but states she is currently back to her baseline- left sided weakness/facial droop resolved. Denies headache Patient denies any fever, chills, sweats, lightheadedness, dizziness, vision changes, CP, palpitations, edema, SOB, wheezing, cough, abdominal pain, nausea, vomiting, diarrhea, urinary symptoms, melena, numbness/tingling, muscle/joint pain, anxiety/depression, active bleeding, or new skin discoloration/changes. Medications Current Inpatient Medications Medications (Trade) Dose Ordered Sig/Claudio Route Start Time Stop Time Status Last Admin Dose Admin Acetaminophen (Tylenol Tab) 650 mg Q4H PRN PO 12/03/16 20:45 01/02/17 20:44 Al Hydrox/Mg Hydrox/Simethicone (Maalox Max Susp) 15 ml Q4H PRN PO 12/03/16 20:45 01/02/17 20:44 Magnesium Hydroxide (Milk Of Magnesia Susp) 30 ml Q6H PRN PO 12/03/16 20:45 01/02/17 20:44 Polyethylene (Miralax Powder Packet) 17 gm DAILY PRN PO 12/03/16 20:45 01/02/17 20:44 Ondansetron HCl (Zofran Inj) 4 mg Q6H PRN IV 12/03/16 20:45 01/02/17 20:44 Furosemide (Lasix Tab) 20 mg BID PRN PO 12/03/16 21:00 01/02/17 20:59 Gabapentin (Neurontin Cap) 300 mg BID PO 12/03/16 21:00 01/02/17 20:59 12/07/16 08:35 300 MG Lorazepam (Ativan Tab) 0.5 mg Q6H PRN PO 12/03/16 21:00 01/02/17 20:59 Metoprolol Succinate (Toprol Xl Tab) 12.5 mg QPM PO 12/03/16 21:00 01/02/17 20:59 12/06/16 21:13 12.5 MG Olmesartan (Benicar Tab) 20 mg QPM PO 12/03/16 21:00 01/02/17 20:59 12/06/16 21:13 20 MG Miscellaneous Information (Order Awaiting Action) 1 ea QS N/A 12/04/16 00:00 01/03/17 00:00 Pantoprazole Sodium (Protonix Tab) 40 mg QAM PO 12/04/16 09:00 01/03/17 08:59 12/07/16 08:35 40 MG Miscellaneous (Iv Fluids Completed) 1 ea PRN PRN N/A 12/03/16 22:00 12/03/17 21:59 Insulin Human Lispro (HumaLOG INSULIN PUMP) 1 ea ACHS N/A 12/04/16 06:30 01/03/17 06:29 12/06/16 21:12 1 EA Insulin Human Lispro (humaLOG) SLIDING SCALE PRN PRN SC 12/03/16 23:00 01/02/17 22:59 Glucose (Glucose 40% Gel) UD PRN PO 12/03/16 23:00 01/02/17 22:59 Glucose (Glucose Chew Tab) 1 tabs UD PRN PO 12/03/16 23:00 01/02/17 22:59 Glucagon (Glucagon Inj) 1 mg UD PRN SQ 12/03/16 23:00 01/02/17 22:59 Dextrose (Dextrose 50% 50ML Syringe) 50 ml UD PRN IV 12/03/16 23:00 01/02/17 22:59 Gadobutrol (Gadavist) 10 mmol UD PRN IV 12/04/16 03:15 12/08/16 03:14 Carbidopa/Levodopa (Sinemet 25/ 100MG Tab) 1.5 tab TID PO 12/04/16 14:00 01/02/17 20:59 12/07/16 08:35 1.5 TAB Clopidogrel Bisulfate (plAVix TAB) 75 mg QAM PO 12/06/16 10:00 01/05/17 09:59 12/07/16 08:35 75 MG Aspirin (Ecotrin Tab) 81 mg QAM PO 12/07/16 09:00 01/06/17 08:59 12/07/16 08:35 81 MG Objective Vital Signs Date Time Temp Pulse Resp B/P (MAP) Pulse Ox O2 Delivery O2 Flow Rate FiO2 12/07/16 08:10 97 Room Air 12/07/16 07:31 36.5 55 18 126/77 (93) 97 Room Air 12/07/16 04:00 Room Air 12/07/16 00:00 Room Air 12/06/16 23:18 36.7 59 18 131/72 (91) 95 Room Air 12/06/16 16:12 97 Room Air 12/06/16 15:50 36.8 55 18 121/78 (92) 95 Room Air Physical Exam General Appearance: no apparent distress Eyes: normal inspection, PERRL ENT: hearing grossly normal Neck: supple Respiratory/Chest: lungs clear, no respiratory distress, no accessory muscle use Cardiovascular: regular rate, rhythm Abdomen: normal bowel sounds, non tender, soft Extremities: no pedal edema, no calf tenderness Neurologic/Psychiatric: alert, normal mood/affect, oriented x 3, + pertinent finding (resting pin-rolling tremor ) Skin: normal color, warm/dry, no rash Laboratory Results Last 24 Hours Test 12/06/16 16:15 12/06/16 20:12 12/07/16 07:27 12/07/16 11:27 Bedside Glucose 159 mg/dl 121 mg/dl 126 mg/dl 115 mg/dl Assessment and Plan Patient is a 71 year old female that presents with a 1 day history of facial numbness and left leg weakness, history of CVA and Parkinson disease, risk factors of HTN and diabetes but does have anxiety history Left sided weakness, 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 Mild atrophy. Mild chronic small vessel change. No evidence for an acute ischemic event. - Consulted neurology, appreciate recommendations -- Increased Sinemet -- f/u outpatient h/o CVA: Continue ASA 81 mg daily + Plavix 75 mg daily Parkinsonism: - Sinemet increased to 1.5 tablets TID - Continue Gabapentin 300 mg BID HTN- CONTROLLED: Metoprolol 12.5 mg HS, Benicar 20 mg HS and Lasix 20 mg BID T2DM- CONTROLLED: - Humalog Insulin Pump - PM snack to prevent hypoglycemia Anxiety: Ativan 0.5 mg q6 hrs PRN GI Prophylaxis: Protonix, Maalox PRN, IV Zofran PRN, Colace and/or Milk of Mag PRN DVT Prophylaxis: SCDs and ambulation Code Status: LEVEL I, FULL Dispo: Patient is medically stable for discharge pending acute rehab placement - PT/OT evaluations- recommending rehab
[2016-12-07 15:40] VITALS: BP 148/69; PULSE 62; TEMP 36.6; O2SAT 94
[2016-12-07 16:12] VITALS: O2SAT 97
[2016-12-07] MEDS: METOPROLOL SUCC 25MG EXT REL TAB PO SCH (21:13)
[2016-12-07] MEDS: OLMESARTAN MEDOXOMIL 20 MG TAB PO SCH (21:13)
[2016-12-07 23:18] VITALS: BP 111/70; PULSE 63; TEMP 36.4; O2SAT 96
[2016-12-08 07:53] VITALS: BP 123/61; PULSE 54; TEMP 36.6; O2SAT 97
[2016-12-08 08:00] VITALS: O2SAT 97
[2016-12-08] MEDS: CARBIDOPA/LEVODOPA 25/100MG TAB PO SCH ×3 (08:30→21:12)
[2016-12-08] MEDS: ASPIRIN 81 MG ECTAB PO SCH (08:31)
[2016-12-08] MEDS: CLOPIDOGREL BISULFATE 75 MG TAB PO SCH (08:31)
[2016-12-08] MEDS: GABAPENTIN 300 MG CAP PO SCH ×2 (08:31→21:12)
[2016-12-08] MEDS: PANTOprazole SOD 40 MG TAB PO SCH (08:31)
[2016-12-08] MEDS: RESTASIS~ORDER AWAITING ACTION SCH ×4 (08:32→23:04)
[2016-12-08] MEDS ORDERED: SNM/25100 PO (12:23)
--- NOTE | 2016-12-08 12:31 | Discharge Instructions ---
Discharge Instructions Date of Service Dec 09, 2016. Admission Reason for Admission: Parkinsons Disease Discharge Discharge Diagnosis / Problem: Parkinsons disease; complex migraines Discharge Goals Goal(s): Decrease discomfort, Improve function, Increase independence, Improve disease control, Learn about illness, Diagnostic testing, Therapeutic intervention, Prevent Disease Progression Activity Recommendations Activity Level: Assistance Required Therapies: Physical Therapy, Occupational Therapy . 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 Mild atrophy. Mild chronic small vessel change. No evidence for an acute ischemic event. - Consulted neurology, appreciate recommendations -- Increased Sinemet from 1 tablet to 1.5 tablet TID -- f/u outpatient h/o CVA: Continue ASA 81 mg daily + Plavix 75 mg daily Parkinsonism: - Sinemet increased to 1.5 tablets TID - Continue Gabapentin 300 mg BID HTN- CONTROLLED: Metoprolol 12.5 mg HS, Benicar 20 mg HS and Lasix 20 mg BID T2DM- CONTROLLED: - Humalog Insulin Pump - PM snack to prevent hypoglycemia Anxiety: Ativan 0.5 mg q6 hrs PRN GERD: Nexium Follow-up: Please follow-up with provider at [facility] within 24-48 hours Please follow-up with your PCP within 5-7 days after discharge from [facility] Please follow-up/keep all of your subspecialty appointments Current Hospital Diet Patient's current hospital diet: Diabetes Type 2 Diet Discharge Diet Recommended Diet: Diabetes Type 2 Diet Procedures Procedures Performed: 1. Head CT 2. Brain MRI 3. Chest x-ray Pending Studies Studies pending at discharge: no Physician Orders On Transfer Dressing Changes: None IV Therapy: None Vital Signs: Routine POLST Discussion: Not Applicable Laboratory Results Last Resulted CBC 12/03/16 17:04 Red Blood Count 4.47, Mean Corpuscular Volume 86.4, Mean Corpuscular Hemoglobin 27.7, Mean Corpuscular Hemoglobin Concent 32.1, Mean Platelet Volume 10.1, Neutrophils (%) (Auto) 66.8, Lymphocytes (%) (Auto) 22.5, Monocytes (%) (Auto) 7.3, Eosinophils (%) (Auto) 2.5, Basophils (%) (Auto) 0.5, Neutrophils # (Auto) 3.77, Lymphocytes # (Auto) 1.27, Monocytes # (Auto) 0.41, Eosinophils # (Auto) 0.14, Basophils # (Auto) 0.03 Last Resulted BMP 12/03/16 17:04 Last 24 Hours Test 12/07/16 16:04 12/07/16 20:13 12/08/16 07:42 12/08/16 10:51 Bedside Glucose 103 mg/dl 100 mg/dl 104 mg/dl 140 mg/dl Medical Emergencies . Who to Call and When: Medical Emergencies: If at any time you feel your situation is an emergency, please call 911 immediately. . Non-Emergent Contact Non-Emergency issues call your: Primary Care Provider . . "Provider Documentation" section prepared by Bianca Rooney. . Core Measure Problem Core Measures: None
--- NOTE | 2016-12-08 12:37 | Discharge Summary ---
Discharge Summary Date of Service Dec 08, 2016. Discharge Summary Admission Date: Dec 07, 2016 at 16:16 Discharge Date: Dec 09, 2016 Discharge Disposition: Rehab Principal Diagnosis: Parkinsons disease; complex migraines Problems/Secondary Diagnoses: Left sided weakness, likely secondary to atypical migraine w/ h/o complex migraines h/o CVA Parkinsonism HTN T2DM Anxiety GERD Immunizations: Have You Had Influenza Vaccine: No Influenza Vaccine Date: Mar 30, 2012 History of Tetanus Vaccine?: Yes Tetanus Immunization Date: Jul 11, 2012 History of Pneumococcal: Yes Pneumococcal Date: Jul 11, 2009 History of Hepatitis B Vaccine: No Procedures: CT OF THE HEAD WITHOUT CONTRAST CLINICAL HISTORY: Stroke COMPARISON STUDY: Head CT June 10, 2013 and MRI of the brain January 04, 2015. CT DOSE: 709.48 mGy.cm TECHNIQUE: Helical axial images of the head were obtained without IV contrast. Automated exposure control was utilized for the study. FINDINGS: No acute intracranial hemorrhage, midline shift or mass effect is present. Ventricular system is stable. Basilar cisterns are patent. There are no extra-axial collections. Kendrick-white differentiation is maintained. There are no findings to suggest acute dural sinus thrombosis or acute territorial infarct. There are no calvarial abnormalities. Postsurgical findings within the left globe are again noted. Visualized portions of the sinuses and mastoid air cells are clear. IMPRESSION: No acute intracranial findings. Electronically signed by: Subhash Pearl M.D. 12/03/2016 6:03 PM Dictated Date/Time: 12/03/2016 5:59 PM The status of this report is Signed. Draft = Not yet reviewed or approved by Radiologist. Signed = Reviewed and approved by Radiologist. CHEST ONE VIEW PORTABLE CLINICAL HISTORY: Stroke COMPARISON STUDY: Chest radiograph and chest CT September 14, 2014. FINDINGS: The patient is rotated. An apparent lower mediastinal contour abnormality likely reflects overlying soft tissues. Old right-sided rib fracture is present. There is no evidence of pulmonary edema. There is no consolidation to suggest pneumonia. Mild cardiomegaly is unchanged. Mild elevation of the right hemidiaphragm is unchanged. IMPRESSION: No acute cardiopulmonary findings. Electronically signed by: Subhash Pearl M.D. 12/03/2016 6:32 PM Dictated Date/Time: 12/03/2016 6:31 PM The status of this report is Signed. Draft = Not yet reviewed or approved by Radiologist. Signed = Reviewed and approved by Radiologist. MRI OF THE BRAIN WITHOUT AND WITH IV CONTRAST CLINICAL HISTORY: Left sided facial numbness COMPARISON STUDY: 01/04/2015 TECHNIQUE: Utilizing a 1.5 Rosemarie magnet and dedicated coil, multiplanar, multiecho imaging of the brain was performed pre and postcontrast administration. IV administration of 8.5 mL of Gadavist contrast was uneventful. FINDINGS: Diffusion-weighted images are negative for an acute ischemic event. Mild chronic small vessel change of periventricular deep right matter regions. Ventricular system is midline. An enhancing lesion of the right internal auditory canal is slightly increased in prominence in the prior study. Current maximum dimensions are 1.2 cm slightly increased from 1.0 cm. Left internal auditory canals unremarkable. Sella and parasellar regions are unremarkable. IMPRESSION: 1. Slight increase in size of a right acoustic neuroma. 2. Mild atrophy. 3. Mild chronic small vessel change. 4. No evidence for an acute ischemic event. Electronically signed by: Chandra Villalpando M.D. 12/04/2016 6:52 AM Dictated Date/Time: 12/04/2016 6:50 AM The status of this report is Signed. Draft = Not yet reviewed or approved by Radiologist. Signed = Reviewed and approved by Radiologist. Consultations: Neurology Medication Reconciliation New Medications: Levodopa/Carbidopa (Sinemet 25MG/100MG) 1 Ea Tab 1.5 TAB PO TID for 30 Days Continued Medications: Aspirin Enteric Coated (Ecotrin Or Generic) 81 Mg Tab 81 MG PO QPM, TAB Clopidogrel (Plavix) 75 Mg Tab 75 MG PO DAILY, TAB Cyclosporine (Ophth) (Restasis) 0.05 % Emu 1 DROP OPB BID, BTL Esomeprazole Magnesium (Nexium) 40 Mg Capcr 40 MG PO QAM, 0 Refills Furosemide (Lasix) 20 Mg Tab 20 MG PO BID PRN for WATER RETENTION, TAB Gabapentin (Neurontin) 300 Mg Cap 300 MG PO BID, CAP Insulin Human Lispro (Insulin Humalog Pump ) Pump 1 EA N/A UD, 0 Refills Lorazepam (Ativan) 0.5 Mg Tab 0.5 MG PO Q6H PRN for Anxiety, TAB Metoprolol Succ (Toprol Xl) (Toprol-Xl) 25 Mg Tabcr 12.5 MG PO QPM, #30 TAB Olmesartan Medoxomil (Benicar) 20 Mg Tab 20 MG PO QPM, TAB Discontinued Medications: Carbidopa/Levodopa (Sinemet 25MG/100MG) Unknown Strength Tab Unknown Dose PO TID, TAB Discharge Exam Review of Systems: Constitutional: No fever, No chills, No sweats, No weakness, No fatigue Respiratory: No cough, No shortness of breath, No hemoptysis Cardiovascular: No chest pain, No edema, No palpitations Abdomen: No pain, No nausea, No vomiting, No diarrhea, No constipation Musculoskeletal: No joint pain, No muscle pain, No swelling, No calf pain Genitourinary - Female: No dysuria, No hematuria Neurologic: + weakness, No numbness/tingling Psychiatric: No depression symptoms, No anxiety Hematologic / Lymphatic: No abnormal bleeding/bruising Integumentary: No rash, No itch, No new/changing skin lesions Physical Exam: General Appearance: no apparent distress Eyes: normal inspection, PERRL ENT: hearing grossly normal Neck: supple Respiratory/Chest: lungs clear, no respiratory distress, no accessory muscle use Cardiovascular: regular rate, rhythm Abdomen / GI: normal bowel sounds, non tender, soft Extremities: no calf tenderness, no pedal edema Neurologic/Psychiatric: alert, normal mood/affect, oriented x 3, + pertinent finding (resting tremor ) Skin: normal color, warm/dry, no rash Hospital Course Patient is a 71 year old female that presents with a 1 day history of facial numbness and left leg weakness, history of CVA and Parkinson disease, risk factors of HTN and diabetes but does have anxiety history Left sided weakness, 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 Mild atrophy. Mild chronic small vessel change. No evidence for an acute ischemic event. - Consulted neurology, appreciate recommendations -- Increased Sinemet -- Continue f/u outpatient h/o CVA: Continue ASA 81 mg daily + Plavix 75 mg daily Parkinsonism: - Sinemet increased to 1.5 tablets TID - Continue Gabapentin 300 mg BID HTN- CONTROLLED: Metoprolol 12.5 mg HS, Benicar 20 mg HS and Lasix 20 mg BID T2DM- CONTROLLED: - Humalog Insulin Pump - PM snack to prevent hypoglycemia Anxiety: Ativan 0.5 mg q6 hrs PRN GERD: Nexium changed to Protonix- resume Nexium at discharge GI Prophylaxis: Protonix, Maalox PRN, IV Zofran PRN, Colace and/or Milk of Mag PRN DVT Prophylaxis: SCDs and ambulation Code Status: LEVEL I, FULL Dispo: Discharge to [facility] Total Time Spent: Greater than 30 minutes This includes examination of the patient, discharge planning, medication reconciliation, and communication with other providers. Discharge Instructions Please refer to the electronic Patient Visit Report (Discharge Instructions) for additional information. Follow-Up Follow-up with [facility] provider within 24-48 hours Please follow-up with your PCP within 5-7 days Please follow-up/keep all of your subspecialty appointments Additional Copies To Damaris Vega M.D.
--- NOTE | 2016-12-08 12:40 | Hospitalist Progress Note ---
Hospitalist Progress Note Date of Service Dec 08, 2016. Subjective Pt evaluation today including: conversation w/ patient, physical exam, chart review, lab review, review of inpatient medication list Voiding: no voiding problems, no incontinence Patient states she is feeling well today. +Weakness, but continues to feel stronger each day. Anxious to get rehab and eventually return home. Patient denies any fever, chills, sweats, lightheadedness, dizziness, vision changes, CP, palpitations, edema, SOB, wheezing, cough, abdominal pain, nausea, vomiting, diarrhea, urinary symptoms, melena, numbness/tingling, muscle/joint pain, anxiety/depression, active bleeding, or new skin discoloration/changes. Medications Current Inpatient Medications Medications (Trade) Dose Ordered Sig/Claudio Route Start Time Stop Time Status Last Admin Dose Admin Acetaminophen (Tylenol Tab) 650 mg Q4H PRN PO 12/03/16 20:45 01/02/17 20:44 Al Hydrox/Mg Hydrox/Simethicone (Maalox Max Susp) 15 ml Q4H PRN PO 12/03/16 20:45 01/02/17 20:44 Magnesium Hydroxide (Milk Of Magnesia Susp) 30 ml Q6H PRN PO 12/03/16 20:45 01/02/17 20:44 Polyethylene (Miralax Powder Packet) 17 gm DAILY PRN PO 12/03/16 20:45 01/02/17 20:44 Ondansetron HCl (Zofran Inj) 4 mg Q6H PRN IV 12/03/16 20:45 01/02/17 20:44 Furosemide (Lasix Tab) 20 mg BID PRN PO 12/03/16 21:00 01/02/17 20:59 Gabapentin (Neurontin Cap) 300 mg BID PO 12/03/16 21:00 01/02/17 20:59 12/08/16 08:31 300 MG Lorazepam (Ativan Tab) 0.5 mg Q6H PRN PO 12/03/16 21:00 01/02/17 20:59 Metoprolol Succinate (Toprol Xl Tab) 12.5 mg QPM PO 12/03/16 21:00 01/02/17 20:59 12/07/16 21:13 12.5 MG Olmesartan (Benicar Tab) 20 mg QPM PO 12/03/16 21:00 01/02/17 20:59 12/07/16 21:13 20 MG Miscellaneous Information (Order Awaiting Action) 1 ea QS N/A 12/04/16 00:00 01/03/17 00:00 12/08/16 08:32 1 EA Pantoprazole Sodium (Protonix Tab) 40 mg QAM PO 12/04/16 09:00 01/03/17 08:59 12/08/16 08:31 40 MG Miscellaneous (Iv Fluids Completed) 1 ea PRN PRN N/A 12/03/16 22:00 12/03/17 21:59 Insulin Human Lispro (HumaLOG INSULIN PUMP) 1 ea ACHS N/A 12/04/16 06:30 01/03/17 06:29 12/08/16 12:18 1 EA Insulin Human Lispro (humaLOG) SLIDING SCALE PRN PRN SC 12/03/16 23:00 01/02/17 22:59 Glucose (Glucose 40% Gel) UD PRN PO 12/03/16 23:00 01/02/17 22:59 Glucose (Glucose Chew Tab) 1 tabs UD PRN PO 12/03/16 23:00 01/02/17 22:59 Glucagon (Glucagon Inj) 1 mg UD PRN SQ 12/03/16 23:00 01/02/17 22:59 Dextrose (Dextrose 50% 50ML Syringe) 50 ml UD PRN IV 12/03/16 23:00 01/02/17 22:59 Carbidopa/Levodopa (Sinemet 25/ 100MG Tab) 1.5 tab TID PO 12/04/16 14:00 01/02/17 20:59 12/08/16 08:30 1.5 TAB Clopidogrel Bisulfate (plAVix TAB) 75 mg QAM PO 12/06/16 10:00 01/05/17 09:59 12/08/16 08:31 75 MG Aspirin (Ecotrin Tab) 81 mg QAM PO 12/07/16 09:00 01/06/17 08:59 12/08/16 08:31 81 MG Objective Vital Signs Date Time Temp Pulse Resp B/P (MAP) Pulse Ox O2 Delivery O2 Flow Rate FiO2 12/08/16 08:00 97 Room Air 12/08/16 07:53 36.6 54 18 123/61 (81) 97 Room Air 12/08/16 00:00 Room Air 12/07/16 23:18 36.4 63 18 111/70 (84) 96 Room Air 12/07/16 16:12 97 Room Air 12/07/16 15:40 36.6 62 18 148/69 (95) 94 Physical Exam General Appearance: no apparent distress Eyes: normal inspection, PERRL ENT: hearing grossly normal Neck: supple Respiratory/Chest: lungs clear, no respiratory distress, no accessory muscle use Cardiovascular: regular rate, rhythm Abdomen: normal bowel sounds, non tender, soft Extremities: no pedal edema, no calf tenderness Neurologic/Psychiatric: alert, normal mood/affect, oriented x 3, + pertinent finding (resting tremor ) Skin: normal color, warm/dry, no rash Laboratory Results Last 24 Hours Test 12/07/16 16:04 12/07/16 20:13 12/08/16 07:42 12/08/16 10:51 Bedside Glucose 103 mg/dl 100 mg/dl 104 mg/dl 140 mg/dl Assessment and Plan Patient is a 71 year old female that presents with a 1 day history of facial numbness and left leg weakness, history of CVA and Parkinson disease, risk factors of HTN and diabetes but does have anxiety history Left sided weakness, 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 Mild atrophy. Mild chronic small vessel change. No evidence for an acute ischemic event. - Consulted neurology, appreciate recommendations -- Increased Sinemet -- Continue f/u outpatient h/o CVA: Continue ASA 81 mg daily + Plavix 75 mg daily Parkinsonism: - Sinemet increased to 1.5 tablets TID - Continue Gabapentin 300 mg BID HTN- CONTROLLED: Metoprolol 12.5 mg HS, Benicar 20 mg HS and Lasix 20 mg BID T2DM- CONTROLLED: - Humalog Insulin Pump - PM snack to prevent hypoglycemia Anxiety: Ativan 0.5 mg q6 hrs PRN GERD: Nexium changed to Protonix- resume Nexium at discharge GI Prophylaxis: Protonix, Maalox PRN, IV Zofran PRN, Colace and/or Milk of Mag PRN DVT Prophylaxis: SCDs and ambulation Code Status: LEVEL I, FULL Dispo: Medically stable for discharge to acute rehab facility once approved - PT/OT evaluations- recommending rehab
[2016-12-08 15:32] VITALS: BP 111/71; PULSE 58; TEMP 36.8; O2SAT 95
[2016-12-08] MEDS: OLMESARTAN MEDOXOMIL 20 MG TAB PO SCH (21:12)
[2016-12-08] MEDS: METOPROLOL SUCC 25MG EXT REL TAB PO SCH (21:13)
[2016-12-08 21:14] VITALS: BP 118/69; PULSE 72
[2016-12-08 22:57] VITALS: BP 105/61; PULSE 56; TEMP 36.3; O2SAT 94
[2016-12-09] VITALS: O2SAT 97
[2016-12-09 07:32] VITALS: BP 112/66; PULSE 54; TEMP 36.3; O2SAT 97
[2016-12-09] MEDS: CLOPIDOGREL BISULFATE 75 MG TAB PO SCH (08:49)
[2016-12-09] MEDS: ASPIRIN 81 MG ECTAB PO SCH (08:49)
[2016-12-09] MEDS: GABAPENTIN 300 MG CAP PO SCH (08:49)
[2016-12-09] MEDS: PANTOprazole SOD 40 MG TAB PO SCH (08:49)
[2016-12-09] MEDS: CARBIDOPA/LEVODOPA 25/100MG TAB PO SCH ×2 (08:50→14:40)
[2016-12-09] MEDS: RESTASIS~ORDER AWAITING ACTION SCH ×2 (08:50→16:37)
[2016-12-09 14:50] VITALS: BP 112/66; PULSE 54; TEMP 36.3; O2SAT 97
== END 2016-12-09 17:40 | DRG 57 ==
LOC: EDBD 17:00 → C.EDB 17:01 → C.MS2W 20:39 → ENRESERV 21:00 → OBSVTOIN 12-07 16:16
PROVIDERS: ADMIT Hospitalist; ATTEND Hospitalist
DX: G20 Parkinson's disease (principal); G81.94 Hemiplegia, unspecified affecting left nondominant side; Z68.41 Body mass index [BMI] 40.0-44.9, adult; G43.809 Other migraine, not intractable, without status migrainosus; E11.49 Type 2 diabetes mellitus with other diabetic neurological complication; D33.3 Benign neoplasm of cranial nerves; I11.0 Hypertensive heart disease with heart failure; I50.9 Heart failure, unspecified; F41.9 Anxiety disorder, unspecified; I25.10 Atherosclerotic heart disease of native coronary artery without angina pectoris; E66.9 Obesity, unspecified; Z79.899 Other long term (current) drug therapy; Z79.4 Long term (current) use of insulin; Z79.82 Long term (current) use of aspirin; Z96.41 Presence of insulin pump (external) (internal); Z86.73 Personal history of transient ischemic attack (TIA), and cerebral infarction without residual deficits; Z82.49 Family history of ischemic heart disease and other diseases of the circulatory system

== ENCOUNTER → 2017-01-06 | Outpatient (CLI) | payer BC, OTHER ==
[~2017-01-06] MED LIST changes: -ATV5 PO; +CYCL0.052 OPB; +LORA-741 PO; -RSTOPS OPB; +SNM/25100 PO
== END | disposition home or self-care (01) ==
LOC: C.RDSM 07:00
PROVIDERS: ATTEND Physical Medicine & Rehabilitation Sports Medicine
DX: Z96.652 Presence of left artificial knee joint (principal); M25.561 Pain in right knee

== ENCOUNTER → 2017-09-01 | Outpatient (CLI) | payer BC ==
[~2017-09-01] MED LIST changes: +BNC/20 PO; -OLME1TAB11 PO
--- NOTE | 2017-09-02 15:16 | MAMMOGRAPHY REPORT ---
BILATERAL DIGITAL SCREENING MAMMOGRAM TOMOSYNTHESIS WITH CAD: 09/01/2017 CLINICAL HISTORY: Routine screening. Patient has no complaints. TECHNIQUE: Breast tomosynthesis in addition to standard 2D mammography was performed. Current study was also evaluated with a Computer Aided Detection (CAD) system. COMPARISON: Comparison is made to exams dated: 10/29/2014 ultrasound, 10/29/2014 mammogram, 05/21/2014 mammogram, 09/27/2012 mammogram, 07/08/2010 mammogram - [facility], and 07/26/2007. BREAST COMPOSITION: There are scattered areas of fibroglandular density in both breasts. FINDINGS: There is a 5 mm focal asymmetry with possible associated calcification in the approximate 10:00 middle one third of the left breast. Additional spot compression tomosynthesis, spot magnifica tion views and possible ultrasound are recommended. A 9 mm focal asymmetry in the 12:00 anterior right breast is stable dating back to at least 09/27/2012, therefore considered benign. There are scattered benign-appearing calcifications bilaterally. No ot her new suspicious mass, architectural distortion or cluster of microcalcifications is seen. IMPRESSION: ACR BI-RADS CATEGORY 0: INCOMPLETE EVALUATION: NEED ADDITIONAL IMAGING EVALUATION The 5 mm focal asymmetry with possible associated calcification in the 10:00 left breast needs additi onal evaluation. The patient will be called to schedule an appointment. Approximately 10% of breast cancers are not detected with mammography. A negative mammographic report should not delay biopsy if a clinically suggestive mass is present. Cailin Harden M.D. ay/:09/01/2017 15:58:03 Continuous Still Operator: Rita LAZAR(Yonatan)(M), [facility] letter sent: Addl Imaging 0 BI-RADS Code: ACR BI-RADS Category 0: Incomplete Evaluation: Need Additional Imaging Evaluation
== END | disposition home or self-care (01) ==
LOC: C.MAMM 10:51
PROVIDERS: ATTEND Obstetrics & Gynecology
DX: Z12.31 Encounter for screening mammogram for malignant neoplasm of breast (principal); R92.8 Other abnormal and inconclusive findings on diagnostic imaging of breast

== ENCOUNTER → 2017-09-15 | Outpatient (CLI) | payer BC ==
--- NOTE | 2017-09-16 07:51 | MAMMOGRAPHY REPORT ---
UNILATERAL LEFT DIGITAL DIAGNOSTIC MAMMOGRAM TOMOSYNTHESIS AND TARGETED LEFT ULTRASOUND: 09/15/2017 CLINICAL HISTORY: 72-year-old woman called back from screening mammography for a 5 mm focal asymmetry with associated calcification in the approximate 10:00 left breast. TECHNIQUE: Spot magnification left CC, ML; spot compression tomosynthesis left CC and MLO views were obtained. COMPARISON: Comparison is made to exams dated: 09/01/2017 mammogram, 10/29/2014 ultrasound, 10/29/2014 mammogram, 05/21/2014 mammogram, 09/27/2012 mammogram, and 07/08/2010 mammogram - [facility]. BREAST COMPOSITION: There are scattered areas of fibroglandular density in the left breast. FINDINGS: The spot magnification and spot compression tomosynthesis views of the left breast demonstr ate a persistent 6 mm focal asymmetry versus mass with indistinct borders and associated punctate and coarse heterogeneous calcification in the approximate 10:00 middle one third of the left breast. Th e focal asymmetry was not definitely present on prior mammograms but there is no associated android architect ural distortion. No other suspicious mass or suspicious grouping of calcifications identified in the visualized left breast. Further evaluation with ultrasound was performed. Targeted ultrasound was performed throughout the medial left breast. In the 10:00 axis, 5 cm from th e nipple, there is a lobulated isoechoic possible mass measuring 6.0 x 2.7 x 5.2 mm. This could poss ibly correlate with the mammographic focal asymmetry. IMPRESSION: ACR BI-RADS CATEGORY 4: SUSPICIOUS, TARGETED ULTRASOUND ACR BI-RADS CATEGORY 4: SUSPICIO US There is a newly visualized 6 mm focal asymmetry with associated calcification in the 10:00 middle on e third of the left breast mammographically, with possible sonographic correlate in the 10:00 axis on ultrasound. However, given better visualization mammographically, would recommend stereotactic neymar synthesis guided biopsy with specimen radiography to ensure inclusion of the calcifications, for defi nitive characterization. The patient only currently takes Plavix. 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 These results and recommendations were discussed with the patient at the time of the exam. She tenta tively scheduled the left breast stereotactic tomosynthesis biopsy prior to leaving the department. Approximately 10% of breast cancers are not detected with mammography. A negative mammographic report should not delay biopsy if a clinically suggestive mass is present. Cailin Harden M.D. ay/:09/15/2017 09:38:31 Loss Prevention Operations Manager: Rita Caceres, [facility] letter sent: Abnormal 4/5 BI-RADS Code: ACR BI-RADS Category 4: Suspicious Ultrasound BI-RADS: ACR BI-RADS Category 4: Suspici ous
== END | disposition home or self-care (01) ==
LOC: C.MAMM 08:27
PROVIDERS: ATTEND Obstetrics & Gynecology
DX: R92.1 Mammographic calcification found on diagnostic imaging of breast (principal); R92.8 Other abnormal and inconclusive findings on diagnostic imaging of breast; Z79.01 Long term (current) use of anticoagulants

== ENCOUNTER → 2017-09-21 | Outpatient (CLI) | payer BC ==
--- NOTE | 2017-09-21 11:33 | DIAGNOSTIC IMAGING REPORT ---
RIGHT FOOT 3 VIEWS CLINICAL HISTORY: Right foot pain. Injury several days ago. FINDINGS: 3 views of the right foot are obtained. No prior studies are available for comparison at the time of dictation. The skeletal structures are osteopenic. There is a subtle nondistracted fracture seen at the base of the third proximal phalanx. No additional fracture is identified. There is a hallux valgus deformity with moderate arthritic change at the first metatarsophalangeal joint. There are large dorsal and small plantar calcaneal enthesophytes. A small enthesophyte is also seen at the base of the fifth metatarsal. Degenerative spurring is noted along the dorsal aspect of the tarsal bones. There is no radiographic evidence of Lisfranc injury. Mild soft tissue swelling is suggested along the dorsal surface of the foot. Atherosclerotic calcification is noted in the regional arteries. IMPRESSION: 1. There is a subtle nondistracted fracture at the base of the third proximal phalanx. 2. No additional fracture is identified. 3. Osteopenia with hallux valgus, arthritic change, and large heel spurs as above. Electronically signed by: Keith Grace M.D. 09/21/2017 11:32 AM Dictated Date/Time: 09/21/2017 11:28 AM
--- NOTE | 2017-09-21 14:19 | DIAGNOSTIC IMAGING REPORT ---
R KNEE 4 OR MORE CLINICAL HISTORY: Right knee pain status post trauma COMPARISON: None. DISCUSSION: There are moderately advanced osteoarthritic changes present. There is moderate narrowing of the medial joint compartment. There are advanced arthritic changes present within the patellofemoral joint. IMPRESSION: 1. Moderately advanced osteoarthritic changes, most pronounced in the medial joint compartment and patellofemoral joint. 2. No acute fractures Electronically signed by: Armond Parson M.D. 09/21/2017 2:18 PM Dictated Date/Time: 09/21/2017 2:17 PM
== END | disposition home or self-care (01) ==
LOC: C.RDSM 11:00
PROVIDERS: ATTEND Physician Assistant
DX: S92.514A Nondisplaced fracture of proximal phalanx of right lesser toe(s), initial encounter for closed fracture (principal); X58.XXXA Exposure to other specified factors, initial encounter; M25.561 Pain in right knee; M17.11 Unilateral primary osteoarthritis, right knee

== ENCOUNTER → 2017-09-29 | Outpatient (CLI) | payer BC ==
[~2017-09-29] MED LIST changes: +ASPI-319 PO; -ASPI81TA21 PO
--- NOTE | 2017-09-29 13:15 | Discharge Instructions ---
Discharge Instructions Procedure Procedure Date: Sep 29, 2017. Reason for visit: Left Focal Asymmetry With Calcifications. Discharge Discharge Date: Sep 29, 2017. Discharge Diagnosis: status post breast biopsy Instructions Activity Recommendations: Additional Limitations (see below) Return to School/Work: no limitations Recommended Home Diet: No Limitations Provider Instructions: ACTIVITY RECOMMENDATIONS: * No lifting, pushing, pulling or exercising the affected side for three days. RETURN TO SCHOOL/WORK: * You may return to work/school after the procedure, but do not perform any strenuous activities for 24 to 48 hours. MEDICATIONS: * Tylenol (two 325 mg) every four to six hours if needed for mild pain (if not allergic to Tylenol). DIET: * Resume previous diet. SPECIAL CARE INSTRUCTIONS: * Keep biopsy site dry for 24 hours. May shower after 24 hours, but do not soak (bathe) incision. * May remove Tegaderm (plastic patch) tomorrow AFTER showering. * Leave the steri-strips on for one week. Allow the steri-strips to fall off by themselves. If not off after one week, you may remove them. You may place a Bandaid crosswise over the strips, if desired. * Apply ice 10 minutes on and 10 minutes off as needed. * Wear a bra at bedtime to sleep more comfortably for 2-3 days. * Your referring physician should have the results after approximately 5 to 7 business days. * Call for unusual bleeding, fever, drainage, etc or if you have any questions call during normal business hours or after hours call Dr Huitron, [phone]. FOLLOW UP VISIT: Follow-up with Referring Physician as scheduled. Allergies Coded Allergies: Doxycycline (Verified Allergy, Mild, NAUSEA, 12/03/16) NAUSEA PER POST OP ORDERS FOR DOXY AND MINOCYCLINE Minocycline (Verified Allergy, Mild, NAUSEA, 12/03/16) NAUSEA PER POST OP ORDER SET Simvastatin (Verified Allergy, Mild, ALLERGY, 12/03/16) [place] Recommendations: Call your doctor if: * Temperature above 101 degrees * Pain not relieved by pain medicine ordered * There is increased drainage or redness from any incision * You have any unanswered questions or concerns. Your Doctors Instructions noted above were prepared by provider Gaby Huitron. Patient Signature Section: Patient Instructions Signature Page Sabine Lainez Patient (or Guardian) Signature/Date: I have read and understand the instructions given to me by my caregivers. Caregiver/RN/Doctor Signature/Date: The above-named patient and/or guardian has received patient instructions on this date. + Original Patient Signature Page (only) stays with chart. Please make copy for patient.
--- NOTE | 2017-09-30 07:54 | MAMMOGRAPHY REPORT ---
STEREOTACTIC GUIDED BIOPSY LEFT BREAST: 09/29/2017 CLINICAL HISTORY: Indeterminate calcifications and associated focal asymmetry in the left 10:00 breas t. PATIENT CONSENT: The procedure, risks, benefits, and alternatives of stereotactic biopsy with clip pl acement were discussed with the patient, and verbal and written consent was obtained. A timeout was performed immediately prior to the procedure. PROCEDURE DESCRIPTION: With stereotactic guidance, aseptic technique, and lidocaine as a local anesth etic (1% lidocaine to anesthetize the skin and 1% lidocaine with epinephrine to anesthetize the deepe r tissues), the calcifications and associated focal asymmetry in the left 10:00 breast were sampled m ultiple times with a 9-gauge vacuum-assisted biopsy needle (BitAccess). The path of approach was m edial. The specimen radiograph demonstrates calcifications to be present in the samples. A metallic marker clip was placed at the biopsy site. This was confirmed on postprocedure mammograms. Direct pressure was applied at the biopsy site and hemostasis was readily achieved. The patient tolerated t he procedure without complication. She was given wound care instructions. COMPARISON: Comparison is made to exams dated: 09/15/2017 ultrasound, 09/15/2017 mammogram, 09/01/2017 mammogram, 10/29/2014 ultrasound, 10/29/2014 mammogram, and 05/21/2014 mammogram - [facility]. IMPRESSION: STEREOTACTIC GUIDED BIOPSY Stereotactic biopsy of indeterminate calcifications and associated focal asymmetry in the left 10:00 breast, with clip placement. The patient will receive pathology results from her referring provider. Gaby Huitron M.D. ah/:09/29/2017 13:16:25 Hyperbaric Nurse: Rita Caceres, [facility]
--- NOTE | 2017-09-30 07:59 | MAMMOGRAPHY REPORT ---
UNILATERAL LEFT DIGITAL DIAGNOSTIC MAMMOGRAM: 09/29/2017 CLINICAL HISTORY: Status post left breast stereotactic biopsy. TECHNIQUE: Postprocedural left CC and ML views were obtained. COMPARISON: Comparison is made to exams dated: 09/15/2017 ultrasound, 09/15/2017 mammogram, 10/29/2014 ultrasound, 09/01/2017 mammogram, 10/29/2014 mammogram, and 05/21/2014 mammogram - [facility]. BREAST COMPOSITION: There are scattered areas of fibroglandular density in the left breast. FINDINGS: A new biopsy marker clip is seen within the left breast status post stereotactic biopsy of left upper inner quadrant calcifications. There is lateral migration of the biopsy marker clip from the biopsy site of approximately 6.7 cm, likely due to accordion effect. No significant postbiopsy h ematoma is seen. IMPRESSION: POST PROCEDURE IMAGING FOR MARKER PLACEMENT New biopsy marker clip status post left breast stereotactic biopsy. Pathology results are pending. Approximately 10% of breast cancers are not detected with mammography. A negative mammographic report should not delay biopsy if a clinically suggestive mass is present. Gaby Huitron M.D. /:09/29/2017 13:33:28 Elevator Constructor Helper: Rita Caceres, [facility] BI-RADS Code: Post Procedure Imaging For Marker Placement
== END | disposition home or self-care (01) ==
LOC: C.MAMM 12:30
PROVIDERS: ATTEND Obstetrics & Gynecology
DX: D24.2 Benign neoplasm of left breast (principal); R92.0 Mammographic microcalcification found on diagnostic imaging of breast

== ENCOUNTER → 2017-10-01 | Outpatient (CLI) | payer BC ==
[~2017-10-01] MED LIST changes: +CARB25TA12 PO; +ESCI10TA17 PO
--- NOTE | 2017-10-01 10:38 | DIAGNOSTIC IMAGING REPORT ---
RIGHT FOOT 3 VIEWS CLINICAL HISTORY: Follow-up fracture. FINDINGS: 3 views of the right foot are compared to study dated 09/21/2017. The skeletal structures are osteopenic. There is mild hallux valgus with arthritic change at the first metatarsophalangeal joint. There is unchanged appearance of a nonobstructed fracture through base of the third proximal phalanx as compared to 09/21/2017. No new fracture is identified. There are large dorsal and plantar calcaneal enthesophytes. Calcification is seen at the insertion of the Achilles tendon. Degenerative spurring is noted along the dorsal aspect of the tarsal bones. Mild dorsal soft tissue edema is noted. There is mild atherosclerotic calcification of the regional arteries. IMPRESSION: 1. There has been no significant change in the appearance of a nonobstructed fracture through the base of the third proximal phalanx as compared to 09/21/2017. 2. No new fracture is seen. 3. Osteopenia, hallux valgus, arthritic change, and heel spurs as above. Electronically signed by: Keith Grace M.D. 10/01/2017 10:37 AM Dictated Date/Time: 10/01/2017 10:34 AM
== END | disposition home or self-care (01) ==
LOC: C.RDSM 11:30
PROVIDERS: ATTEND Physician Assistant
DX: Z09 Encounter for follow-up examination after completed treatment for conditions other than malignant neoplasm (principal); M85.871 Other specified disorders of bone density and structure, right ankle and foot; M20.11 Hallux valgus (acquired), right foot; M77.31 Calcaneal spur, right foot

== ENCOUNTER → 2017-10-20 | Outpatient (CLI) | payer BC ==
[~2017-10-20] MED LIST changes: +HYDR-5688 PO; -SNM/25100 PO
--- NOTE | 2017-10-20 14:38 | DIAGNOSTIC IMAGING REPORT ---
R FOOT MIN 3 VIEWS CLINICAL HISTORY: RIGHT TOE FX fracture COMPARISON: 10/01/2017 DISCUSSION: Unchanging small avulsion base proximal phalanx third toe. Alignment remains unchanged and generally anatomic. The bunion deformity of the distal first metatarsal associated with hallux valgus configuration is unaltered. There is no evidence for soft tissue swelling. IMPRESSION: Unchanging small avulsion base proximal phalanx third toe. Note is also made of a very tiny avulsion base proximal phalanx second toe which is present previously and appears to be unchanged. The above report was generated using voice recognition software. It may contain grammatical, syntax or spelling errors. Electronically signed by: Chandra Villalpando M.D. 10/20/2017 2:37 PM Dictated Date/Time: 10/20/2017 2:35 PM
== END | disposition home or self-care (01) ==
LOC: C.RDSM 14:25
PROVIDERS: ATTEND Physician Assistant
DX: S92.514D Nondisplaced fracture of proximal phalanx of right lesser toe(s), subsequent encounter for fracture with routine healing (principal); X58.XXXD Exposure to other specified factors, subsequent encounter

== ENCOUNTER → 2018-01-05 | Outpatient (CLI) | payer BC ==
[~2018-01-05] MED LIST changes: -HYDR-5688 PO
--- NOTE | 2018-01-05 11:14 | DIAGNOSTIC IMAGING REPORT ---
SOFT TISS HEAD/NECK-THYROID CLINICAL HISTORY: 72 years-old Female presenting with E04.9 Goiter compare to previous. TECHNIQUE: Real-time grayscale and color Doppler ultrasound imaging of the thyroid and base of the neck was performed. COMPARISON: 05/25/2013. FINDINGS: Examination limited by partial obscuration of the lower poles of the thyroid due to substernal location. Right lobe: Normal echogenicity and echotexture. The right lobe of the thyroid measures 5.8 x 2.8 x 3.5 cm. No parenchymal hyperemia. Index nodule(s) enumerated below: 1. Interpolar solid isoechoic circumscribed wider than tall nodule, measuring 4.1 x 3.1 x 3.7 cm. No calcification. (Low suspicion) This nodule previously measured 3.4 x 3.2 x 2.0 cm. Left lobe: Normal echogenicity and echotexture. The left lobe of the thyroid measures 3.9 x 1.6 x 2.0 cm. No parenchymal hyperemia. No nodules. Isthmus: The isthmus measures 8 mm in thickness. No parenchymal hyperemia. No nodules. IMPRESSION: Low suspicion pattern dominant nodule in the right lobe of the thyroid. This has slightly increased in size since 2013. By the [place] [employer] criteria, fine-needle aspiration would be indicated though the slow rate of change is highly suggestive of a benign etiology. Continued ultrasound follow-up to be considered. Electronically signed by: Alexander Atkinson M.D. 01/05/2018 11:13 AM Dictated Date/Time: 01/05/2018 11:09 AM
== END | disposition home or self-care (01) ==
LOC: C.ULTR 09:59
PROVIDERS: ATTEND Internal Medicine Endocrinology, Diabetes & Metabolism
DX: E04.9 Nontoxic goiter, unspecified (principal)

== ENCOUNTER 2018-11-04 12:56 | Inpatient (IN) ==
[2018-11-04] MEDS ORDERED: SODIUM CHLORIDE 0.9% 1000ML 1,000 ML IV SCH (13:15)
--- NOTE | 2018-11-04 13:41 | XRay Report ---
XR chest 1V portable CLINICAL HISTORY: weakness dyspnea COMPARISON STUDY: 11/02/2018 FINDINGS: Mild cardiomegaly. Mild increase in bronchovascular prominence. Slight decrease in visibili ty left cardiac margin. Potential developing left basilar infiltrate. IMPRESSION: 1. Developing mild congestive heart failure. 2. Superimposed interstitial infiltrate left base. The above report was generated using voice recognition software. It may contain grammatical, syntax or spelling errors. Electronically signed by: Chandra Villalpando M.D. 11/04/2018 1:40 PM
[2018-11-04 14:20] LABS: Basophils # (auto) 0.02 K/uL (0-0.2); Basophils % (auto) 0.3 %; Eosinophils # (auto) 0.11 K/uL (0-0.5); Eosinophils % (auto) 1.7 %; Hematocrit (blood only) 35.8 % (37-47); Hemoglobin 12.2 g/dL (12.0-16.0); Immature Granulocytes # (auto) 0.02 K/uL (0.00-0.02); Immature Granulocytes % (auto) 0.3 %; Lymphocytes # (auto) 1.37 K/uL (1.2-3.4); Lymphocytes % (auto) 20.8 %; Mean Corpuscular Hgb Conc 34.1 g/dL (32-36); Mean Corpuscular Volume 86.5 fL (80-100); Mean Platelet Volume 10.1 fL (7.4-10.4); Monocytes # (auto) 0.55 K/uL (0.11-0.59); Monocytes % (auto) 8.4 %; Neutrophils # (auto) 4.51 K/uL (1.4-6.5); Neutrophils % (auto) 68.5 %; Platelet Count 203 K/uL (130-400); RDW Standard Deviation 44.2 fL (36.4-46.3); Red Blood Count 4.14 M/uL (4.2-5.4); White Blood Count 6.58 K/uL (4.8-10.8)
[2018-11-04 14:31] LABS: Alanine Aminotransferase 11 U/L (12-78); Albumin Level 3.5 gm/dl (3.4-5.0); Aspartate Aminotransferase 21 U/L (15-37); BUN Creatinine Ratio 23.2 (10-20); Blood Urea Nitrogen 25 mg/dl (7-18); Calcium 8.3 mg/dl (8.5-10.1); Carbon Dioxide 25 mmol/L (21-32); Chloride 110 mmol/L (98-107); Creatinine Clr Calc Pharmacy 56.4 ml/min; Est GFR (African American) 60.8; Est GFR (Non-African American) 52.4; Glucose 71 mg/dl (70-99); Potassium 3.6 mmol/L (3.5-5.1); Sodium 140 mmol/L (136-145)
[2018-11-04 14:45] LABS: Alkaline Phosphatase 75 U/L (45-117); Bilirubin,Total 1.1 mg/dl (0.2-1); Globulin 3.4 gm/dl (2.5-4.0); Total Protein 6.9 gm/dl (6.4-8.2); Troponin I < 0.015 ng/ml (0-0.045)
[2018-11-04 14:49] LABS: Appearance Urine Turbid (Clear); Bacteria Urine Automated 2+ (Negative); Bilirubin Urine Negative (Negative); Blood Urine 1+ (Negative); Color Urine Dark Yellow; Epithelial Cell Urine Auto >30 /lpf (0-5); Glucose Urine UA Negative (Negative); Ketones Urine Trace (Negative); Leukocyte Esterase Urine 2+ (Negative); Nitrite Urine Negative (Negative); Protein Urine 1+ (Negative); Specific Gravity Urine 1.035 (1.000-1.030); Urobilinogen Urine Negative (Negative); WBC Urine Automated >30 /hpf (0-5)
--- NOTE | 2018-11-04 15:11 | CT Scan Report ---
CT head/brain wo con CLINICAL HISTORY: 73 years-old Female presenting with syncope, CHI fall, right-sided abrasion to lowe r mandible. TECHNIQUE: Multidetector CT imaging of the head was performed without the use of intravenous contrast . IV contrast: None. One or more dose lowering techniques were used consistent with the principles of ALARA (as low as reasonably achievable), including automatic exposure control, mA or kV adjustment t o individual patient size, and/or use of iterative reconstruction. COMPARISON: 11/02/2018. CT DOSE (mGy.cm): The estimated cumulative dose is 751.60. FINDINGS: Head Rose Grower topogram: Unremarkable. Ventricles and sulci normal in size. No hemorrhage. Brain parenchyma normal in appearance with preser nirmal meyers-white differentiation. No acute territorial infarct. No mass effect or midline shift. No ext ra-axial fluid collection. Paranasal sinuses and mastoid air cells clear. Calvarium intact. Post valentín tment changes of the left orbit. IMPRESSION: 1. No acute intracranial abnormality. Electronically signed by: Alexander Atkinson M.D. 11/04/2018 3:10 PM
[2018-11-04] MEDS ORDERED: cefTRIAXone SODIUM 1,000 MG/50 ML BAG IV STA (15:17)
--- NOTE | 2018-11-04 15:30 | CT Scan Report ---
CT facial bones wo con CLINICAL HISTORY: 73 years-old Female presenting with fall, right lower jaw pain, abrasion over the r ight mandible. TECHNIQUE: Multidetector CT of the face was performed without the use of intravenous contrast. IV con trast: None. One or more dose lowering techniques were used consistent with the principles of ALARA ( as low as reasonably achievable), including automatic exposure control, mA or kV adjustment to indivi dual patient size, and/or use of iterative reconstruction. COMPARISON: None. CT DOSE (mGy.cm): The estimated cumulative dose is 751.60 mGy.cm. FINDINGS: [employer]ch[employer] Support Associate topogram: Unremarkable. Paranasal sinuses and mastoid air cells clear. Skull base intact. Temporomandibular joints intact. Zy gomatic processes intact. Mandible intact. Few teeth are absent with the remaining teeth intact. Uppe r cervical spine with degenerative change but otherwise intact. Post procedural changes of the left g lobe. Orbits otherwise intact. Limited intracranial evaluation within normal limits. Superficial soft tissues of the face demonstrate mild contusion over the right body of the mandible. No soft tissue h ematoma. No subjacent osseous abnormality. IMPRESSION: Limited soft tissue contusion over the right body of the mandible. No hematoma or subjacent osseous i njury. Electronically signed by: Alexander Atkinson M.D. 11/04/2018 3:28 PM
--- NOTE | 2018-11-04 16:02 | History & Physical Report ---
Date of Service November 04, 2018 Assessment & Plan (1) Syncope: admit telemetry Unclear if there syncope or near syncope but patient describes becoming light headed with standing resulting in possible loc and then collapse Will hold off on starting anticoagulation due to head injury CT head negative for acute U/A with bacteria, leukocyte esterase, WBCs - UC pending - continue ceftriaxone started in ED (2) A-fib: Discovered on presentation to the ED on 11/02. Has been rate controlled thus far. EKG showing rate controlled Afib Patient was prescribed Xeralto 11/02 but had not started taking it ye Will hold plavix but give ASA for now Echo pending Consult cardiology - sees Dr. Moody outpatient (3) Parkinson disease: May have contributed to fall Patient has some baseline right sided weakness, uses walker Continue home sinemet (4) CHF (congestive heart failure): Unknown type - echo pending Abnormal chest xray with possible congestion - lung sounds were clear and patient does not appear dyspneic or hypoxic. Will hold off on administering diuretics at this point given her apparent orthostasis contributing to her fall. No leukocytosis, fevers or cough to indicate pneumonia (5) Non-healing wound: left middle toe with non healing posterior surgical wound Consult wound care (6) DVT prophylaxis: SCDs History of Present Illness Ms. Ramirez fell last night after standing up from sitting. She does not remember falling other than getting lightheaded but does remember hitting. She is not sure if she lost consciousness. She tried to go to bed at 9:30. She was unable to sleep and called her doctor this morning who told her to come to the ED. On Wednesday when she presented to the ED she had come from her provider's office after her blood pressure had dropped. No palpitations or chest pain. She has been a little sob. No cough. She was found to be in A.fib when she presented to the ED two days ago but rate controlled. She did not wish to be admitted and as her heart rate appeared to be well controlled was sent home with metoprolol and Xeralto which she did not start taking yet. Her pharmacy wanted her to verify whether she should be on plavix or Xeralto but did not want her to be on both. She has not taken either today per her pcp's instruction Pmhx: Parkinsons disease, diabetes II, congestive heart failure, acoustic neuroma, Social: lives alone, never smoker, non drinker, former [employer] employee Family: Mother had CHF, Father when she was young in a car accident. Primary Care Provider: Damaris Vega MD Allergies Allergy/AdvReac Type Severity Reaction Status Date / Time benztropine Allergy Unknown UNKNOWN Verified 11/04/18 14:56 citalopram Allergy Unknown UNKNOWN Verified 11/04/18 14:56 simvastatin Allergy Unknown UNK Verified 11/04/18 14:56 sulindac Allergy Unknown UNKNOWN Verified 11/04/18 14:56 doxycycline AdvReac Mild NAUSEA Verified 11/04/18 14:56 minocycline AdvReac Mild NAUSEA Verified 11/04/18 14:56 Home Medications Home Medications Medication Instructions Recorded Confirmed Type aspirin [Aspirin Low Dose] 81 mg PO PM 11/02/18 11/04/18 History atorvastatin 10 mg PO PM 11/02/18 11/04/18 History calcium carbonate-vitamin D3 1 tab PO QAM 11/02/18 11/04/18 History [Calcium 500 + D] carbidopa-levodopa 2 tab PO QID 11/02/18 11/04/18 History clopidogrel 75 mg PO QAM 11/02/18 11/04/18 History cyclosporine 1 drp OPHTHALMIC (EYE) Q12H 11/02/18 11/04/18 History esomeprazole magnesium [Nexium] 40 mg PO QAM 11/02/18 11/04/18 History furosemide 20 mg PO QAM 11/02/18 11/04/18 History gabapentin 300 mg PO QAM 11/02/18 11/04/18 History insulin lispro [Humalog U-100 0 unit SUBCUT .INSULIN PUMP 11/02/18 11/04/18 History Insulin] lorazepam 0.5 mg PO BID 11/02/18 11/04/18 History metoprolol succinate 12.5 mg PO PM 11/02/18 11/04/18 History rivaroxaban [Xarelto] 20 mg PO DAILY #30 tab 11/02/18 11/04/18 Rx valsartan 160 mg PO PM 11/02/18 11/04/18 History gabapentin 600 mg PO PM 11/04/18 11/04/18 History Past Med/Surg History Medical History GERD (gastroesophageal reflux disease) Anxiety History of TIA (transient ischemic attack) Hypertension New onset a-fib (Acute) Diabetes Parkinson disease CHF (congestive heart failure) Surgical History S/P appendectomy (Resolved) Knee joint replacement status (Resolved) S/P cholecystectomy (Resolved) Social History Feels Safe at Home: Yes Smoking Status: Never smoker Review of Systems Review of Systems: All systems reviewed & are unremarkable except as noted in HPI & below Physical Exam Physical Exam: General: no distress Eyes: normal inspection, PERLL Respiratory: chest non tender, clear to auscultation, normal breath sounds, no respiratory distress, no accessory muscle use Cardiac: regular rate and rhythm, no rub or gallop, no murmur, no edema, no jvd GI/: active bowel sounds, no abd pain or tenderness, soft, non distended Extremities: normal range of motion, normal strength, non tender Neuro:oriented x 3, moves all extremities Psych: alert, normal mood and affect Skin: normal color, dry, left middle toe macerated non healing surgical wound, right chin ecchymosis Results & Data Vital Signs (Past 12 Hours) Vital Signs Temp Pulse Resp BP Pulse Ox 11/04/18 15:10 67 21 117/68 98 11/04/18 14:31 57 L 16 123/60 98 11/04/18 14:29 62 17 126/64 99 11/04/18 13:49 72 19 119/67 99 11/04/18 13:38 79 16 99 11/04/18 13:01 37.0 C 79 16 128/75 99 Code Status & VTE Plan Code Status full code Supervising Physician Co-Signing Physician Notes INTERPRETATIVE DANCER Physician Supervision Note: I discussed with Cata Thomas NP and agree with findings and plan as documented in the note. Any exceptions or clarifications are listed here: None Patient was seen in the emergency department she is an obvious bruise on her right chin. Patient rate controlled atrial fibrillation. She is not in obvious heart failure nor does she have any clinical signs or symptoms of pneumonia. Concerns for systolic hypotension versus bradycardia arrhythmia given her atrial fibrillation's. Patient be in a monitored setting hold her antihypertensives and hydrate her. We will follow her with some chest x-ray changes consistent with possible infiltrate although no clinical signs. She will be maintained on antibiotics until urine cultures are resulted. Documented By: Jase Mayo (1) Syncope Syncope type: unspecified Qualified Code(s): R55 - Syncope and collapse
--- NOTE | 2018-11-04 16:09 | Emergency Department Note ---
Entered by Katerina Ponce acting as a scribe for Chilango Brody MD ED Provider Note CHIEF COMPLAINT: Syncope HISTORY OF PRESENT ILLNESS: The patient is a 73 year old female who presents to the Emergency Room following an episode of syncope that occurred yesterday around 1899. The patient reports that yesterday she woke up feeling baseline but that she felt more and more unwe ll as the day progressed. She states that she then fell and lost consciousness for a few seconds. She notes that she has noticed that she leans more towards the right. She denies taking her blood thinner yesterday secondary to getting a call by a pharmacist who advised her not to take it because she is on Plavix. She reports that she then contacted her PCP who instructed she discontinue both medications. EMR was reviewed and shows that the patient was seen at this hospital on the for dizziness, abdominal pain, a headache and chest pressure. Her dizziness worsened when standing up. She was a new onset a-fib. She was recommended for admission and evaluated by the hospitalist. The hospitalist then consulted Dr. Carrera who recommended the patient be placed on Xarelto. She had a CAT scan of her head that was negative and her blood work was unremarkable. REVIEW OF SYSTEMS: See HPI for pertinent positives and negatives. A total of ten systems were reviewed and were otherwise negative. PMHx/PSHx: Parkinsons History of knee replacement Diabetes Acoustic neuroma SOCIAL HISTORY: Patient lives at home. PHYSICAL EXAM: GENERAL: Awake, alert, well-appearing, in no distress HENT: Normocephalic. Oropharynx unremarkable. Hematoma to the right jaw. EYES: PERRL. Normal conjunctiva. Sclera non-icteric. NECK: Inspection normal. Non-tender. Supple. No nuchal rigidity. FROM. No mas ses. RESPIRATORY: Clear to auscultation. No wheezes. No rales. Normal respiratory effort. CARDIAC: Normal rate. Normal rhythm. No murmurs. No rubs. Extremities warm and well perfused. Pulses equal. No JVD. GI: Soft, non-distended. No tenderness to palpation. No rebound or guarding. No masses. RECTAL: Deferred. MUSCULOSKELETAL: Chest examination reveals no tenderness. The back is symmetrical on inspection without obvious abnormality. There is no CVA tenderness to palpation. No joint edema. Bruise over the right flank. Hematoma to the right axilla. LOWER EXTREMITIES: Calves are equal size bilaterally and non-tender. No edema. No discoloration. NEURO: Normal sensorium. No sensory or motor deficits noted. No drift. Rapid alternating movements. SKIN: No rash or jaundice noted. EMERGENCY DEPARTMENT COURSE: 1317: The patient was evaluated in room C12B, and a complete history and physical examination were performed. 1523: I reviewed the patient's case with Dr. Torrez - [facility] Hospitalist. She will evaluate the patient for further management. MEDICAL DECISION MAKING: Patient presented to the emergency department because of syncopal episode. She had a prior syncopal episode and internal medicine and cardiology were consulted for admission at that time. The patient was discharged by internal medicine. Unfortunately she had another syncopal episode. Etiologies such as vasovagal event, infection, hypoglycemia, electrolyte abnorm alities, cardiac sources, intracerebral event, toxicologic, neurologic, as well as others were entertained. The patient was found to be in new onset A. fib on her prior visit. She is in A. fib again today. Her CBC and chemistry panels are unremarkable. Her urinalysis is concerning for infection. Chest x-ray shows possible consolidation at the left base concerning for an early pneumonia. The patient does not have any significant pulmonary symptoms. A head CT was performed and was negative. The patient was given IV Rocephin. Further management in the hospital will be necessary given the events over the last 3 days. Consultation was made with internal medicine, Dr. Torrez. The case was discussed and diagnostics were reviewed. The patient will be evaluated in the ER for further management. IMPRESSION: Syncope, closed head injury, UTI, pneumonia PLAN: Being evaluated by hospitalist. The scribe's documentation has been prepared under my direction and personally reviewed by me in its entirety. I confirm that the note above accurately reflects all work, treatment, procedures, and medical decision making performed by me. Impression & Plan Syncope, Closed head injury, UTI (urinary tract infection), Pneumonia Past Med/Surg History Medical History GERD (gastroesophageal reflux disease) Anxiety History of TIA (transient ischemic attack) Hypertension New onset a-fib (Acute) Diabetes Parkinson disease CHF (congestive heart failure) Surgical History S/P appendectomy (Resolved) Knee joint replacement status (Resolved) S/P cholecystectomy (Resolved) Social History Feels Safe at Home: Yes Smoking Status: Never smoker Results & Data Vital Signs Vital Signs - 24 hr 11/04/18 13:01 11/04/18 13:38 11/04/18 13:45 Temperature 37.0 C Temperature Source Oral Sepsis Recent Fever Within 48 Hours No Sepsis Action Taken by Nursing No Action Required Pulse Rate - Lying 67 Pulse Rate - Sitting 72 Pulse Rate - Standing 76 Pulse Rate 79 79 Pulse Rate from SpO2 Sensor Pulse Rhythm Irregular Respiratory Rate 16 16 Blood Pressure - Lying 114/70 Blood Pressure - Sitting 112/65 Blood Pressure- Standing 119/67 Blood Pressure 128/75 Blood Pressure Mean 92 Pulse Oximetry 99 99 Oxygen Delivery Method Room Air Room Air 11/04/18 13:49 11/04/18 14:29 11/04/18 14:31 Temperature Temperature Source Sepsis Recent Fever Within 48 Hours Sepsis Action Taken by Nursing Pulse Rate - Lying Pulse Rate - Sitting Pulse Rate - Standing Pulse Rate 72 62 57 L Pulse Rate from SpO2 Sensor 71 64 66 Pulse Rhythm Respiratory Rate 19 17 16 Blood Pressure - Lying Blood Pressure - Sitting Blood Pressure- Standing Blood Pressure 119/67 126/64 123/60 Blood Pressure Mean 84 84 81 Pulse Oximetry 99 99 98 Oxygen Delivery Method Room Air Room Air Room Air 11/04/18 15:10 Temperature Temperature Source Sepsis Recent Fever Within 48 Hours Sepsis Action Taken by Nursing Pulse Rate - Lying Pulse Rate - Sitting Pulse Rate - Standing Pulse Rate 67 Pulse Rate from SpO2 Sensor 67 Pulse Rhythm Respiratory Rate 21 Blood Pressure - Lying Blood Pressure - Sitting Blood Pressure- Standing Blood Pressure 117/68 Blood Pressure Mean 84 Pulse Oximetry 98 Oxygen Delivery Method Room Air Home Medications Current Medication List: was personally reviewed by me Laboratory Data Attestation: I reviewed the patient's lab results. Result diagrams: 11/04/18 14:03 11/04/18 14:03 Lab Results 11/04/18 11/04/18 11/04/18 Range/Units 13:55 14:03 14:03 WBC 6.58 (4.8-10.8) K/uL RBC 4.14 L (4.2-5.4) M/uL Hgb 12.2 (12.0-16.0) g/dL Hct 35.8 L (37-47) % MCV 86.5 (80-100) fL MCH 29.5 (25-34) pg MCHC 34.1 (32-36) g/dL RDW Std Deviation 44.2 (36.4-46.3) fL RDW Coeff of Vicky 14.0 (11.5-14.5) % Plt Count 203 (130-400) K/uL MPV 10.1 (7.4-10.4) fL Immature Gran % (Auto) 0.3 % Neut % (Auto) 68.5 % Lymph % (Auto) 20.8 % [place] % (Auto) 8.4 % Eos % (Auto) 1.7 % Baso % (Auto) 0.3 % Immature Gran # (Auto) 0.02 (0.00-0.02) K/uL Neut # (Auto) 4.51 (1.4-6.5) K/uL Lymph # (Auto) 1.37 (1.2-3.4) K/uL [place] # (Auto) 0.55 (0.11-0.59) K/uL Eos # (Auto) 0.11 (0-0.5) K/uL Baso # (Auto) 0.02 (0-0.2) K/uL Sodium 140 (136-145) mmol/L Potassium 3.6 D (3.5-5.1) mmol/L Chloride 110 H (98-107) mmol/L Carbon Dioxide 25 (21-32) mmol/L Anion Gap 6.0 (3-11) BUN 25 H (7-18) mg/dl Creatinine 1.06 (0.6-1.2) mg/dl Est Cr Clr Drug Dosing 56.4 ml/min Est GFR ( Amer) 60.8 Est GFR (Non-Af Amer) 52.4 BUN/Creatinine Ratio 23.2 H (10-20) Glucose 71 (70-99) mg/dl Calcium 8.3 L (8.5-10.1) mg/dl Magnesium 2.0 (1.8-2.4) mg/dl Total Bilirubin 1.1 H (0.2-1) mg/dl AST 21 (15-37) U/L ALT 11 L (12-78) U/L Alkaline Phosphatase 75 (45-117) U/L Troponin I < 0.015 (0-0.045) ng/ml Total Protein 6.9 (6.4-8.2) gm/dl Albumin 3.5 (3.4-5.0) gm/dl Globulin 3.4 (2.5-4.0) gm/dl Albumin/Globulin Ratio 1.0 (0.9-2) TSH 1.140 (0.300-4.500) uIu/ml Urine Color Dark Yellow Urine Appearance Turbid A (Clear) Urine pH 5.0 (4.5-7.5) Ur Specific [place]field 1.035 H (1.000-1.030) Urine Protein 1+ H (Negative) Urine Glucose (UA) Negative (Negative) Urine Ketones Trace H (Negative) Urine Blood 1+ H (Negative) Urine Nitrite Negative (Negative) Urine Bilirubin Negative (Negative) Urine Urobilinogen Negative (Negative) Ur Leukocyte Esterase 2+ H (Negative) Urine WBC (Auto) >30 H (0-5) /hpf Urine RBC (Auto) 5-10 H (0-4) /hpf U Hyaline Cast (Auto) 1-5 (0-5) /lpf U Epithel Cells (Auto) >30 H (0-5) /lpf Urine Bacteria (Auto) 2+ H (Negative) Urine Yeast Present A (None Prsent) 11/04/18 Range/Units 14:03 WBC (4.8-10.8) K/uL RBC (4.2-5.4) M/uL Hgb (12.0-16.0) g/dL Hct (37-47) % MCV (80-100) fL MCH (25-34) pg MCHC (32-36) g/dL RDW Std Deviation (36.4-46.3) fL RDW Coeff of Vicky (11.5-14.5) % Plt Count (130-400) K/uL MPV (7.4-10.4) fL Immature Gran % (Auto) % Neut % (Auto) % Lymph % (Auto) % [place] % (Auto) % Eos % (Auto) % Baso % (Auto) % Immature Gran # (Auto) (0.00-0.02) K/uL Neut # (Auto) (1.4-6.5) K/uL Lymph # (Auto) (1.2-3.4) K/uL [place] # (Auto) (0.11-0.59) K/uL Eos # (Auto) (0-0.5) K/uL Baso # (Auto) (0-0.2) K/uL Sodium (136-145) mmol/L Potassium (3.5-5.1) mmol/L Chloride (98-107) mmol/L Carbon Dioxide (21-32) mmol/L Anion Gap (3-11) BUN (7-18) mg/dl Creatinine (0.6-1.2) mg/dl Est Cr Clr Drug Dosing ml/min Est GFR ( Amer) Est GFR (Non-Af Amer) BUN/Creatinine Ratio (10-20) Glucose (70-99) mg/dl Calcium (8.5-10.1) mg/dl Magnesium (1.8-2.4) mg/dl Total Bilirubin (0.2-1) mg/dl AST (15-37) U/L ALT (12-78) U/L Alkaline Phosphatase (45-117) U/L Troponin I Cancelled (0-0.045) ng/ml Total Protein (6.4-8.2) gm/dl Albumin (3.4-5.0) gm/dl Globulin (2.5-4.0) gm/dl Albumin/Globulin Ratio (0.9-2) TSH (0.300-4.500) uIu/ml Urine Color Urine Appearance (Clear) Urine pH (4.5-7.5) Ur Specific [place] (1.000-1.030) Urine Protein (Negative) Urine Glucose (UA) (Negative) Urine Ketones (Negative) Urine Blood (Negative) Urine Nitrite (Negative) Urine Bilirubin (Negative) Urine Urobilinogen (Negative) Ur Leukocyte Esterase (Negative) Urine WBC (Auto) (0-5) /hpf Urine RBC (Auto) (0-4) /hpf U Hyaline Cast (Auto) (0-5) /lpf U Epithel Cells (Auto) (0-5) /lpf Urine Bacteria (Auto) (Negative) Urine Yeast (None Prsent) Administered Medications Sodium Chloride (Nss 1000ml) 1,000 mls @ 125 mls/hr IV .Q8H LORENZO Stop: 11/04/18 21:14 Last Admin: 11/04/18 14:04 Dose: 125 mls/hr Documented by: [id number] Discontinued Medications Ceftriaxone Sodium (Rocephin) 1,000 mg in 50 mls @ 100 mls/hr IV NOW STA Stop: 11/04/18 15:46 Last Admin: 11/04/18 15:28 Dose: 100 mls/hr Documented by: [id number] Imaging Data Radiologist's Impression: Radiology results as stated below per my review and the radiologist's interpretation: XR chest 1V portable CLINICAL HISTORY: weakness dyspnea COMPARISON STUDY: 11/02/2018 FINDINGS: Mild cardiomegaly. Mild increase in bronchovascular prominence. Slight decrease in visibility left cardiac margin. Potential developing left basilar infiltrate. IMPRESSION: 1. Developing mild congestive heart failure. 2. Superimposed interstitial infiltrate left base. The above report was generated using voice recognition software. It may contain grammatical, syntax or spelling errors. Electronically signed by: Chandra Villalpando M.D. 11/04/2018 1:[address] head/brain wo con CLINICAL HISTORY: 73 years-old Female presenting with syncope, CHI fall, right- sided abrasion to lower mandible. TECHNIQUE: Multidetector CT imaging of the head was performed without the use of intravenous contrast. IV contrast: None. One or more dose lowering techniques were used consistent with the principles of ALARA (as low as reasonably achievable), including automatic exposure control, mA or kV adjustment to individual patient size, and/or use of iterative reconstruction. COMPARISON: 11/02/2018. CT DOSE (mGy.cm): The estimated cumulative dose is 751.60. FINDINGS: Washer Engineer topogram: Unremarkable. Ventricles and sulci normal in size. No hemorrhage. Brain parenchyma normal in appearance with preserved meyers-white differentiation. No acute territorial infarct. No mass effect or midline shift. No extra-axial fluid collection. Paranasal sinuses and mastoid air cells clear. Calvarium intact. Post treatment changes of the left orbit. IMPRESSION: 1. No acute intracranial abnormality. Electronically signed by: Alexander Atkinson M.D. 11/04/2018 3:[address] facial bones wo con CLINICAL HISTORY: 73 years-old Female presenting with fall, right lower jaw pain, abrasion over the right mandible. TECHNIQUE: Multidetector CT of the face was performed without the use of intravenous contrast. IV contrast: None. One or more dose lowering techniques were used consistent with the principles of ALARA (as low as reasonably achievable), including automatic exposure control, mA or kV adjustment to individual patient size, and/or use of iterative reconstruction. COMPARISON: None. CT DOSE (mGy.cm): The estimated cumulative dose is 751.60 mGy.cm. FINDINGS: Washer Engineer topogram: Unremarkable. Paranasal sinuses and mastoid air cells clear. Skull base intact. Temporomandibular joints intact. Zygomatic processes intact. Mandible intact. Few teeth are absent with the remaining teeth intact. Upper cervical spine with degenerative change but otherwise intact. Post procedural changes of the left globe. Orbits otherwise intact. Limited intracranial evaluation within normal limits. Superficial soft tissues of the face demonstrate mild contusion over the right body of the mandible. No soft tissue hematoma. No subjacent osseous abnormality. IMPRESSION: Limited soft tissue contusion over the right body of the mandible. No hematoma or subjacent osseous injury. Electronically signed by: Alexander Atkinson M.D. 11/04/2018 3:28 PM ECG Data Attestation: I personally reviewed and interpreted this ECG as follows: Indication: syncope Rate (beats per minute): 70 Rhythm: atrial fibrillation Findings: no PAC, no PVC, no ST depression and no ST elevation Blood Pressure Blood Pressure Findings: Normal blood pressure Blood Pressure Disposition: did not require urgent referral Discharge Plan Visit Data Chief Complaint: Syncope Stated Complaint: LIGHT HEADED, FAINTING, FALLING DOWN ED Provider: Chilango Brody Discharge Problem: Syncope, Closed head injury, UTI (urinary tract infection), Pneumonia Patient Disposition: Being Evaluated by Hospitalist Forms Stand Alone Forms: My [facility] Prescriptions Prescriptions: No Action atorvastatin 10 mg Tablet 10 mg PO PM RF: 0 clopidogrel 75 mg Tablet 75 mg PO QAM RF: 0 aspirin [Aspirin Low Dose] 81 mg Tablet,Delayed Release (Dr/Ec) 81 mg PO PM RF: 0 esomeprazole magnesium [Nexium] 40 mg Capsule,Delayed Release(Dr/Ec) 40 mg PO QAM RF: 0 gabapentin 300 mg Capsule 300 mg PO QAM RF: 0 furosemide 20 mg Tablet 20 mg PO QAM RF: 0 carbidopa-levodopa 25-100 mg Tablet 2 tab PO QID RF: 0 calcium carbonate-vitamin D3 [Calcium 500 + D] 500 mg(1,250mg) -200 unit Tablet 1 tab PO QAM RF: 0 cyclosporine 0.05 % Drops 1 drp OPHTHALMIC (EYE) Q12H RF: 0 lorazepam 0.5 mg tablet 0.5 mg PO BID RF: 0 metoprolol succinate 25 mg tablet extended release 24 hr 12.5 mg PO PM RF: 0 valsartan 160 mg Tablet 160 mg PO PM RF: 0 Humalog U-100 Insulin 100 unit/mL Cartridge SUBCUT .INSULIN PUMP RF: 0 Xarelto 20 mg tablet 20 mg PO DAILY Qty: 30 RF: 0 gabapentin 300 mg capsule 600 mg PO PM RF: 0 Referrals Referrals: Damaris Vega MD [Primary Care Provider] - Discharge Problem: Syncope Qualifiers: Syncope type: unspecified Qualified Code(s): R55 - Syncope and collapse Closed head injury Qualifiers: Encounter type: initial encounter Qualified Code(s): S09.90XA - Unspecified injury of head, initial encounter UTI (urinary tract infection) Qualifiers: Urinary tract infection type: site unspecified Hematuria presence: without hematuria Qualified Code(s): N39.0 - Urinary tract infection, site not specified Pneumonia Qualifiers: Pneumonia type: due to unspecified organism Laterality: unspecified laterality Lung location: unspecified part of lung Qualified Code(s): J18.9 - Pneumonia, unspecified organism The scribe's documentation has been prepared under my direction and personally reviewed by me in its entirety. I confirm that the note above accurately reflects all work, treatment, procedures, and medical decision making performed by me.
[2018-11-04] MEDS ORDERED: ACETAMINOPHEN 325 MG TAB PO PRN (18:10)
[2018-11-04] MEDS: GABAPENTIN 600 MG TAB PO SCH (20:54)
[2018-11-04] MEDS: ATORVASTATIN 10 MG TAB PO SCH (20:54)
[2018-11-04] MEDS: LORazepam 0.5 MG TAB PO SCH (20:54)
[2018-11-04] MEDS: CARBIDOPA/LEVODOPA 25/100MG TAB PO SCH ×2 (20:55→21:27)
[2018-11-04] MEDS ORDERED: METOPROLOL SUCC 25MG EXT REL TAB PO SCH (21:00)
[2018-11-04] MEDS ORDERED: ASPIRIN 81 MG ECTAB PO SCH (21:00)
[2018-11-04] MEDS ORDERED: VALSARTAN 80 MG TAB PO SCH (21:00)
[2018-11-05 06:10] LABS: Hematocrit (blood only) 33.3 % (37-47); Hemoglobin 11.1 g/dL (12.0-16.0); Mean Corpuscular Hgb Conc 33.3 g/dL (32-36); Mean Corpuscular Volume 88.3 fL (80-100); Mean Platelet Volume 10.3 fL (7.4-10.4); Platelet Count 161 K/uL (130-400); RDW Coefficient of Variation 14.1 % (11.5-14.5); RDW Standard Deviation 45.6 fL (36.4-46.3); Red Blood Count 3.77 M/uL (4.2-5.4); White Blood Count 4.55 K/uL (4.8-10.8)
[2018-11-05 06:47] LABS: BUN Creatinine Ratio 23.3 (10-20); Calcium 8.1 mg/dl (8.5-10.1); Creatinine Clr Calc Pharmacy 84.6 ml/min; Est GFR (African American) 98.6; Est GFR (Non-African American) 85.1; Potassium 3.7 mmol/L (3.5-5.1)
[2018-11-05] MEDS: LORazepam 0.5 MG TAB PO SCH ×2 (08:01→20:46)
[2018-11-05] MEDS: FUROSEMIDE 20 MG TAB PO SCH (08:02)
[2018-11-05] MEDS: PANTOprazole 40 MG TAB PO SCH (08:02)
[2018-11-05] MEDS: GABAPENTIN 300 MG CAP PO SCH (08:03)
[2018-11-05] MEDS: CARBIDOPA/LEVODOPA 25/100MG TAB PO SCH ×4 (08:03→20:42)
[2018-11-05] MEDS: CALCIUM 600MG + VIT D 400 IU TAB PO SCH (08:04)
--- NOTE | 2018-11-05 13:07 | Cardiology Consultation ---
Date of Consultation November 05, 2018 Assessment & Plan (1) Orthostatic dizziness: The patient has been experiencing orthostatic dizziness for several years. Suspect this may related to autonomic insufficiency with her Parkinson's disease. No evidence of pauses on phototypesetting equipment monitor. No indication permanent pacemaking. (2) New onset a-fib: Atrial fibrillation was identified during her emergency room visit on November 02. Fortunately, her ventricular response is well controlled. She was to start Xarelto, however, has not done so to this point. Would delay by several days to allow her ecchymosis time to heal. (3) CHF (congestive heart failure): Compensated at this time. Suspect she has chronic diastolic CHF. She will follow-up with Dr. Moody next week. (4) History of TIA (transient ischemic attack): The patient experienced a TIA back in 2004. Plavix was added to her low- dose aspirin. As she will start Xarelto for her new onset atrial fibrillation, would recommend discontinuation of aspirin while keeping her on Plavix. (5) Hypertension: Adequate control on current medical regimen. History of Present Illness Attending Physician: Jase Mayo MD History of Present Illness Mrs. Lainez is a 73-year-old female admitted after a fall yesterday. This consultation was ordered to assist cardiac management. Of note, patient typically follows with Dr. Moody in the outpatient setting. The patient was in her usual state of health until November 02 when she presented to our emergency room complaints of severe vertigo. She was found to be atrial fibrillation controlled ventricular response. She was given a prescription for Xarelto and discharged home. The patient presented again the after a fall. Patient explains that she was the seated position stood briskly and became dizzy. Patient remembers falling to the striking right chin and shoulder. There is absolutely loss of consciousness. Patient has experienced orthostatic dizziness the last several years. The patient explains that she was diagnosed congestive heart failure several years ago. She underwent an outpatient and was given diuretics with improvement in her symptoms of exertional dyspnea. She has not seen Dr. Moody in over 1 year, however, has an appointment set up this Wednesday. Patient has new onset atrial fibrillation is completely asymptomatic. She specifically denies palpitations. The patient has not experienced any syncope presyncope, PND, orthopnea, lower extremity edema, or claudication. Currently, patient is resting comfortably in bed complaints. She is anxious for hospital discharge. Past medical and surgical history 1. Hypertension 2. Hypercholesterolemia 3. Mild to moderate mitral regurgitation 4. Chronic diastolic CHF 5. Diabetes mellitus 6. Parkinson's disease 7. TIA-2004 8. Diabetic peripheral neuropathy 9. Diabetic retinopathy 10. DJD 11. GERD 12. Migraine headaches 13. Appendectomy 14. Cholecystectomy 15. Right TKR Social history The patient is retired Single, lives alone No tobacco or alcohol Family history Father in a motor vehicle accident No early coronary artery disease Review of systems A 10 point review of systems was undertaken and negative except for that described above. Allergies Allergy/AdvReac Type Severity Reaction Status Date / Time benztropine Allergy Unknown UNKNOWN Verified 11/04/18 14:56 citalopram Allergy Unknown UNKNOWN Verified 11/04/18 14:56 simvastatin Allergy Unknown UNK Verified 11/04/18 14:56 sulindac Allergy Unknown UNKNOWN Verified 11/04/18 14:56 doxycycline AdvReac Mild NAUSEA Verified 11/04/18 14:56 minocycline AdvReac Mild NAUSEA Verified 11/04/18 14:56 Home Medications Home Medications Medication Instructions Recorded Confirmed Type aspirin [Aspirin Low Dose] 81 mg PO PM 11/02/18 11/04/18 History atorvastatin 10 mg PO PM 11/02/18 11/04/18 History calcium carbonate-vitamin D3 1 tab PO QAM 11/02/18 11/04/18 History [Calcium 500 + D] carbidopa-levodopa 2 tab PO QID 11/02/18 11/04/18 History clopidogrel 75 mg PO QAM 11/02/18 11/04/18 History cyclosporine 1 drp OPHTHALMIC (EYE) Q12H 11/02/18 11/04/18 History esomeprazole magnesium [Nexium] 40 mg PO QAM 11/02/18 11/04/18 History furosemide 20 mg PO QAM 11/02/18 11/04/18 History gabapentin 300 mg PO QAM 11/02/18 11/04/18 History insulin lispro [Humalog U-100 0 unit SUBCUT .INSULIN PUMP 11/02/18 11/04/18 History Insulin] lorazepam 0.5 mg PO BID 11/02/18 11/04/18 History metoprolol succinate 12.5 mg PO PM 11/02/18 11/04/18 History rivaroxaban [Xarelto] 20 mg PO DAILY #30 tab 11/02/18 11/04/18 Rx valsartan 160 mg PO PM 11/02/18 11/04/18 History gabapentin 600 mg PO PM 11/04/18 11/04/18 History Patient History Medical History GERD (gastroesophageal reflux disease) Anxiety History of TIA (transient ischemic attack) Hypertension New onset a-fib (Acute) Diabetes Parkinson disease CHF (congestive heart failure) Surgical History S/P appendectomy (Resolved) Knee joint replacement status (Resolved) S/P cholecystectomy (Resolved) Social History Preferred Language: Occitan Communication Ability: Effective Dance Professor Required: No Beliefs That Will Affect Care: None Current Living Situation: Alone Other Information That Helps Us Care for You: No Feels Safe at Home: Yes Safety Concerns: Feels Safe At This Time Smoking Status: Never smoker Do You Dip or Chew Tobacco: No Second Hand Exposure: No Tobacco Cessation Education Requested by Patient: No Hx Alcohol Use: Yes Alcohol type: wine Hx Substance Use: No Physical Exam Physical Exam: In general is obese white female lying supine in bed complain ts. HEENT exam notes an ecchymosis across the right chin. Neck is supple carotid upstrokes. There are no carotid bruits. Jugular venous pressure is flat at 90. There is no thyromegaly. Cardiovascular exam reveals an irregular rhythm with distant heart sounds. No obvious murmurs. Chest notes an ecchymosis across the posterior right shoulder. Lungs are clear without rales, rhonchi or wheezes. Abdomen is soft without bruits. Extremities reveal intact radial artery pulses bilaterally. Trace pretibial edema is noted. Results & Data Vital Signs (Past 12 Hours) Vital Signs Temp Pulse Resp BP Pulse Ox Pulse Ox 11/05/18 11:24 37 C 68 18 126/55 L 96 11/05/18 09:11 98 11/05/18 08:00 36.7 C 58 L 18 111/67 11/05/18 04:00 36.5 C 67 12 122/83 98 Laboratory Results CBC notes a hemoglobin of 11.1, hematocrit 33.3, white count 4.5, platelet count of 161,000. Electrolytes notice sodium 141, potassium 3.7, chloride 113, bicarb 25, BUN 16, creatinine 0.71, glucose 101. Troponin I levels less than 0.015. Diagnostic Findings EKG notes atrial fibrillation with controlled ventricular response. There is a left axis deviation chest x-ray notes cardiomegaly. Head CT scan was negative. Soft tissue swelling noted over right mandible.
[2018-11-05] MEDS ORDERED: cefTRIAXone SODIUM 1,000 MG in DEXTROSE 5% 50 ML IV SCH (14:00)
--- NOTE | 2018-11-05 15:02 | Hospitalist Progress Note ---
Date of Service November 05, 2018 Assessment & Plan (1) Syncope: admit telemetry Unclear if there syncope or near syncope but patient describes becoming light headed with standing resulting in possible loc and then collapse Per cardiology - can hold on restarting anticoagulation for a few days to allow contusions to heal CT head negative for acute U/A with bacteria, leukocyte esterase, WBCs - UC pending - continue ceftriaxone PT/OT evals, ALMAZ hose, liberalize sodium intake (2) A-fib: Discovered on presentation to the ED on 11/02. Has been rate controlled thus far. EKG showing rate controlled Afib Patient was prescribed Xeralto 11/02 but had not started taking it yet - will restart as above Per cardiology - dc asa and keep plavix Echo with normal EF, no wma Consult cardiology - sees Dr. Moody outpatient (3) Parkinson disease: May have contributed to fall with autonomic dysfunction leading to orthostasis Patient has some baseline right sided weakness, uses walker Continue home sinemet (4) CHF (congestive heart failure): Unknown type - possibly diastolic chf as EF is preserved Abnormal chest xray with possible congestion - lung sounds were clear and patient does not appear dyspneic or hypoxic. Will hold off on administering diuretics at this point given her apparent orthostasis contributing to her fall. No leukocytosis, fevers or cough to indicate pneumonia (5) Non-healing wound: left middle toe with non healing posterior surgical wound Consult wound care (6) DVT prophylaxis: SCDs Subjective Ms. Ramirez had an episode of feeling like she was going to pass out while ambulating in the room with her nurse. SBP was 100 when checked. No events on the monitor. Continues to run a rate controlled a.fib. Review of Systems Review of Systems: All systems reviewed & are unremarkable except as noted in HPI & below Physical Exam Physical Exam: General: no distress Eyes: normal inspection, PERLL Respiratory: chest non tender, clear to auscultation, normal breath sounds, no respiratory distress, no accessory muscle use Cardiac: irregular rate and rhythm, no rub or gallop, no murmur, no edema, no jvd GI/: active bowel sounds, no abd pain or tenderness, soft, non distended Extremities: normal range of motion, normal strength, non tender Neuro/Psych: alert and oriented x 3, normal mood and affect Skin: normal color, dry, right chin, right flank ecchymosis Results & Data Vital Signs (Past 12 Hours) Vital Signs Temp Pulse Resp BP Pulse Ox Pulse Ox 11/05/18 11:24 37 C 68 18 126/55 L 96 11/05/18 09:11 98 11/05/18 08:00 36.7 C 58 L 18 111/67 11/05/18 04:00 36.5 C 67 12 122/83 98 (1) Syncope Syncope type: unspecified Qualified Code(s): R55 - Syncope and collapse
[2018-11-05] MEDS ORDERED: CARBOHYDRATES FOR HYPOGLYCEMIA PO PRN (15:20)
[2018-11-05] MEDS ORDERED: GLUCAGON FOR INJ 1 MG VIAL SQ PRN (15:20)
[2018-11-05] MEDS ORDERED: GLUCOSE 40% GEL 15 GM TUBE PO PRN (15:20)
[2018-11-05] MEDS ORDERED: DEXTROSE 50% 50 ML SYRINGE IV PRN (15:20)
[2018-11-05] MEDS ORDERED: GLUCOSE 10 TABS/TUBE PO PRN (15:20)
[2018-11-05] MEDS: VALSARTAN 80 MG TAB PO SCH (20:41)
[2018-11-05] MEDS: GABAPENTIN 600 MG TAB PO SCH (20:42)
[2018-11-05] MEDS: ATORVASTATIN 10 MG TAB PO SCH (20:42)
[2018-11-06 06:20] LABS: Hematocrit (blood only) 33.9 % (37-47); Hemoglobin 11.1 g/dL (12.0-16.0); Mean Corpuscular Hgb Conc 32.7 g/dL (32-36); Mean Corpuscular Volume 88.5 fL (80-100); Mean Platelet Volume 10.4 fL (7.4-10.4); Platelet Count 159 K/uL (130-400); Red Blood Count 3.83 M/uL (4.2-5.4); White Blood Count 4.39 K/uL (4.8-10.8)
[2018-11-06 06:45] LABS: Creatinine Clr Calc Pharmacy 72.4 ml/min; Est GFR (African American) 81.7; Est GFR (Non-African American) 70.4; Potassium 3.9 mmol/L (3.5-5.1)
[2018-11-06] MEDS: CARBIDOPA/LEVODOPA 25/100MG TAB PO SCH ×4 (07:55→20:05)
[2018-11-06] MEDS: LORazepam 0.5 MG TAB PO SCH ×2 (07:55→20:05)
[2018-11-06] MEDS: GABAPENTIN 300 MG CAP PO SCH (07:56)
[2018-11-06] MEDS: CALCIUM 600MG + VIT D 400 IU TAB PO SCH (07:57)
[2018-11-06] MEDS: FUROSEMIDE 20 MG TAB PO SCH (07:57)
[2018-11-06] MEDS: PANTOprazole 40 MG TAB PO SCH (07:58)
--- NOTE | 2018-11-06 11:07 | Hospitalist Progress Note ---
Date of Service November 06, 2018 Assessment & Plan (1) Syncope: Near syncope patient describes becoming light headed with standing resulting in possible loc and then collapse Per cardiology - can hold on restarting anticoagulation for a few days to allow contusions to heal CT head negative for acute U/A with bacteria, leukocyte esterase, WBCs - UC grew leilani - will dc abx - if patient develops symptoms could consider treating but will hold off for now PT/OT evals, ALMAZ ackerman, liberalize sodium intake, decreased antihypertensive regimen (2) A-fib: Discovered on presentation to the ED on 11/02. Has been rate controlled thus far. EKG showing rate controlled Afib. Will discontinue metoprolol as may have contributed to fall having been prescribed two days before Patient was prescribed Xeralto 11/02 but had not started taking it yet - will res tart as above Per cardiology - dc asa and keep plavix Echo with normal EF, no wma Consult cardiology - sees Dr. Moody outpatient (3) Parkinson disease: May have contributed to fall with autonomic dysfunction leading to orthostasis Patient has some baseline right sided weakness, uses walker Continue home sinemet (4) CHF (congestive heart failure): Unknown type - possibly diastolic chf as EF is preserved Abnormal chest xray with possible congestion - lung sounds were clear and patient does not appear dyspneic or hypoxic. Will hold off on administering diuretics at this point given her apparent orthostasis contributing to her fall. No leukocytosis, fevers or cough to indicate pneumonia Decreased valsartan by half to allow for higher blood pressures (5) Non-healing wound: left middle toe with non healing posterior surgical wound Consult wound care (6) DVT prophylaxis: SCDs Dispo: PT/OT evthuy recommending rehab and patient is agreeable, probably [facility]. Subjective Ms. Lainez felt significant dizziness/near syncope while sitting up in a chair this morning and had to be placed back in bed and then again became very dizzy while leaning forward for me to assess her lungs. Review of Systems Review of Systems: All systems reviewed & are unremarkable except as noted in HPI & below Physical Exam Physical Exam: General: no distress Eyes: normal inspection, PERLL Respiratory: chest non tender, clear to auscultation, normal breath sounds, no respiratory distress, no accessory muscle use Cardiac: regular rate and rhythm, no rub or gallop, no murmur, no edema, no jvd GI/: active bowel sounds, no abd pain or tenderness, soft, non distended Extremities: normal range of motion, normal strength, non tender Neuro/Psych: alert and oriented x 3, normal mood and affect Skin: normal color, dry, right jaw contusion, right back/ below breast contusion Results & Data Vital Signs (Past 12 Hours) Vital Signs Temp Pulse Resp BP Pulse Ox Pulse Ox 11/06/18 10:04 98 11/06/18 06:58 37 C 66 20 121/73 98 11/06/18 03:09 36.8 C 73 18 100/63 96 11/05/18 23:25 36.8 C 63 18 114/67 97 (1) Syncope Syncope type: unspecified Qualified Code(s): R55 - Syncope and collapse
[2018-11-06] MEDS: CLOPIDOGREL BISULFATE 75 MG TAB PO SCH ×3 (15:30→15:45)
[2018-11-06] MEDS: VALSARTAN 80 MG TAB PO SCH (20:05)
[2018-11-06] MEDS: ATORVASTATIN 10 MG TAB PO SCH (20:06)
[2018-11-06] MEDS: GABAPENTIN 600 MG TAB PO SCH (20:06)
[2018-11-07] MEDS ORDERED: LORazepam 0.5 MG TAB PO STA (01:37)
[2018-11-07 06:35] LABS: Hematocrit (blood only) 32.5 % (37-47); Hemoglobin 11.3 g/dL (12.0-16.0); Mean Corpuscular Hgb Conc 34.8 g/dL (32-36); Mean Platelet Volume 9.9 fL (7.4-10.4); Platelet Count 159 K/uL (130-400); RDW Coefficient of Variation 13.8 % (11.5-14.5); RDW Standard Deviation 43.2 fL (36.4-46.3); Red Blood Count 3.78 M/uL (4.2-5.4)
[2018-11-07 07:11] LABS: Calcium 8.4 mg/dl (8.5-10.1); Creatinine Clr Calc Pharmacy 77.1 ml/min; Potassium 3.5 mmol/L (3.5-5.1)
[2018-11-07] MEDS: LORazepam 0.5 MG TAB PO SCH ×2 (08:40→20:16)
[2018-11-07] MEDS: CARBIDOPA/LEVODOPA 25/100MG TAB PO SCH ×4 (08:40→20:09)
[2018-11-07] MEDS: GABAPENTIN 300 MG CAP PO SCH (08:40)
[2018-11-07] MEDS: PANTOprazole 40 MG TAB PO SCH (08:40)
[2018-11-07] MEDS: CALCIUM 600MG + VIT D 400 IU TAB PO SCH (08:41)
[2018-11-07] MEDS: RIVAROXABAN 20 MG TAB PO SCH (08:41)
[2018-11-07] MEDS: FUROSEMIDE 20 MG TAB PO SCH (08:41)
[2018-11-07] MEDS: CLOPIDOGREL BISULFATE 75 MG TAB PO SCH (09:06)
--- NOTE | 2018-11-07 10:08 | Cardiology Progress Note ---
Date of Service November 07, 2018 Subjective She feels better today. She notes her right leg is chronically weaker than her left this does cause her some difficulties with ambulation. In the hospital she is only been to the bathroom with assistance. She is had no further orthostatic symptoms nor does she feel dizzy. Next At home she has a prodrome for which she feels like there is a fog coming and she does not describe it as tunnel vision. She notes she feels lightheaded and dizzy. She denies any chest pain or chest pressure with this she is unaware of any palpitations with these episodes. Normally she can hold onto something in the. Of time where she feels dizzy abates without loss of consciousness. Her blood pressures are stable here but still on the low side even with stopping her beta-blockers and reducing her losartan dose. Physical Exam Constitutional: well developed, + ill appearing and + obese Respiratory: Auscultation: lungs clear to auscultation bilaterally; no crackles, no rales, no rhonchi and no wheezes Cardiovascular: Rate/Rhythm: + irregularly irregular Heart Sounds: no gallop, no murmur and no cardiac rub Gastrointestinal (Abdomen): normal bowel sounds, soft, nontender, no hepatosplenomegaly Inspection/Auscultation: normal bowel sounds; abdomen not distended Percussion/Palpation: + abdomen tender and abdomen soft Results & Data Vital Signs (Past 12 Hours) Vital Signs Temp Pulse Resp BP Pulse Ox 11/07/18 07:37 36.8 C 62 22 113/74 95 11/07/18 04:05 36.6 C 61 17 112/68 97 11/06/18 23:12 37.0 C 70 19 113/68 97 (1) Orthostatic dizziness: The patient has been experiencing orthostatic dizziness for several years. Suspect this may related to autonomic insufficiency with her Parkinson's disease. No evidence of pauses on irs agent. No indication permanent pacemaking. I would stop her valsartan completely and allow her to have a higher blood pressure. This will help reduce the risk of any additional orthostatic falls. (2) New onset a-fib: Atrial fibrillation was identified during her emergency room visit on November 02. Fortunately, her ventricular response is well controlled. We will continue with Xarelto. I would stop her Plavix. I would add aspirin 81 mg daily 3. Chronic diastolic heart failure on low-dose furosemide Compensated at this time. Suspect she has chronic diastolic CHF. She will follow-up with Dr. Moody next week. (4) History of TIA (transient ischemic attack): The patient experienced a TIA back in 2004. (5) Hypertension: See above 6. I do feel she needs at least a 2-week event recorder at home just to make sure she is not having pauses that are causing her to have presyncopal episodes. It is possible she is having atrial fibrillation and then converting to sinus rhythm with a pause. We can arrange for this as an outpatient. She does not drive we will have to determine the best way to have an event monitor placed. The best option may be on her way home from the hospital. I would ambulate her in the hallway with her walker to see how he feels. In addition allow us to make sure she is not orthostatic. It also appears she is not drinking very much at home and I encouraged her to increase her fluid consumption in order to avoid orthostatic symptoms. I did review her irs agent there have been no pauses or ventricular arrhythmias. She is in chronic A. fib at this point with an adequate rate control off AV zuleika blockers.
--- NOTE | 2018-11-07 18:27 | Hospitalist Progress Note ---
Date of Service November 07, 2018 Assessment & Plan (1) Syncope: Near syncope patient describes becoming light headed with standing resulting in possible loc and then collapse Was also mildly orthostatic here Metoprolol discontinued and Valsartan dose cut in half, still with some lower BPs Symptoms now much improved with position changes CT head and face negative for acute U/A contaminated and Ur cx with Daniela-no need to treat and has nothing to do with her presenting symptoms PT/OT ALMAZ english, liberalize sodium intake, decreased antihypertensive regimen as above -Cardio dcd her valsartan altogether today -continues on lasix po but consider making this prn weight gain -Plan for 2 week event monitor after discharge to see if has bradycardia or pauses contributing to her presyncopal episodes (2) A-fib: Discovered on presentation to the ED on 11/02. Continues to be rate controlled despite discontinuing her metoprolol. EKG showing rate controlled Afib. -started Xarelto -dc Plavix and start ASA 81mg daily (previously was on ASA and Plavix at home) Echo with normal EF, no wma Consult cardiology appreciated -2 week event monitor needed after discharge (3) Parkinson disease: May have contributed to fall with autonomic dysfunction leading to orthostasis Patient has some baseline right sided weakness, uses walker Continue home sinemet -needs PT/OT at rehab (4) CHF (congestive heart failure): Chronic diastolic chf as EF is preserved, maintained on low dose lasix, is euvolemic at this time -continue lasix 20mg daily for now (5) Non-healing wound: left middle toe with non healing posterior surgical wound Consult wound care appreciated-continue dressing changes and f/u with Dr. Jeff/Podiatry after discharge (6) Orthostatic dizziness: as above -improved -dcd metoprolol and valsartan -Sinemet and PD could also be contributing but now improved and remains on SInemet-ok to continue (7) Closed head injury: with right sided facial trauma with ecchymosis, no fractures or ICH as per head and face imaging (8) History of TIA (transient ischemic attack): -was on DAPT--> now changed to ASA 81mg daily in addition to Eliquis, STOP Plavix -continue atorvastatin (9) Hypertension: stable to low BPs -dcd metoprolol and valsartan as above (10) GERD (gastroesophageal reflux disease): continue PPI (11) Anxiety: stable -continue lorazepam prn (12) Diabetes: Very well controlled, on insulin pump from home Last HgbA1C in our lab system from 11/2017 and is 6.9% -continue home insulin pump -continue accuchecks (13) DVT prophylaxis: SCDs , Xarelto Dispo: PT/OT evals recommending rehab and patient is agreeable, awaiting determination of insurance auth for [facility] Medically stable for discharge today Subjective Pt reports feeling much improved. Denies dizziness or lightheadedness with sitting upright or standing. She ambulated today with PT and felt better but still not quite strong or steady enough she feels on her feet. Denies CP or SOB. Denies LOYA or nausea. Is howard po. Tele with Afib with rates in the 60s. Discussed case with Dr. Moody, her [employer]op [employer] Review of Systems Review of Systems: All systems reviewed & are unremarkable except as noted in HPI & below Physical Exam Constitutional: WD/WN, vitals as above Eyes: PERRL, conjunctivae normal, anicteric sclerae Neck: trachea midline, no thyromegaly Respiratory: normal respiratory effort, lungs clear to auscultation Cardiovascular: Rate/Rhythm: regular rate and + irregularly irregular Heart Sounds: no murmur Extremities: no edema Gastrointestinal (Abdomen): normal bowel sounds, soft, nontender, no hepatosplenomegaly Musculoskeletal: Extremities: extremities normal to inspection; no cyanosis and no clubbing Skin: + ecchymosis (right side of chin and lower cheek); no rashes Neurologic: moves all extremities and awake; no focal motor deficits Psychiatric: A+Ox3, euthymic affect Results & Data Vital Signs (Past 12 Hours) Vital Signs Temp Pulse Resp BP BP Pulse Ox 11/07/18 16:00 36.7 C 76 16 129/86 98 11/07/18 11:12 36.3 C L 76 18 104/70 93 11/07/18 07:37 36.8 C 62 22 113/74 95 Laboratory Results 11/07/18 11/07/18 11/07/18 Range/Units 20:42 16:31 11:15 WBC (4.8-10.8) K/uL RBC (4.2-5.4) M/uL Hgb (12.0-16.0) g/dL Hct (37-47) % MCV (80-100) fL MCH (25-34) pg MCHC (32-36) g/dL RDW Std Deviation (36.4-46.3) fL RDW Coeff of Vicky (11.5-14.5) % Plt Count (130-400) K/uL MPV (7.4-10.4) fL Sodium (136-145) mmol/L Potassium (3.5-5.1) mmol/L Chloride (98-107) mmol/L Carbon Dioxide (21-32) mmol/L Anion Gap (3-11) BUN (7-18) mg/dl Creatinine (0.6-1.2) mg/dl Est Cr Clr Drug Dosing ml/min Est GFR ( Amer) Est GFR (Non-Af Amer) BUN/Creatinine Ratio (10-20) Glucose (70-99) mg/dl POC Glucose 139 H 76 147 H (70-99) Calcium (8.5-10.1) mg/dl 11/07/18 11/07/18 11/07/18 Range/Units 07:11 06:25 06:25 WBC 4.50 L (4.8-10.8) K/uL RBC 3.78 L (4.2-5.4) M/uL Hgb 11.3 L (12.0-16.0) g/dL Hct 32.5 L (37-47) % MCV 86.0 (80-100) fL MCH 29.9 (25-34) pg MCHC 34.8 (32-36) g/dL RDW Std Deviation 43.2 (36.4-46.3) fL RDW Coeff of Vicky 13.8 (11.5-14.5) % Plt Count 159 (130-400) K/uL MPV 9.9 (7.4-10.4) fL Sodium 142 (136-145) mmol/L Potassium 3.5 (3.5-5.1) mmol/L Chloride 109 H (98-107) mmol/L Carbon Dioxide 27 (21-32) mmol/L Anion Gap 7.0 (3-11) BUN 17 (7-18) mg/dl Creatinine 0.78 (0.6-1.2) mg/dl Est Cr Clr Drug Dosing 77.1 ml/min Est GFR ( Amer) 88.0 Est GFR (Non-Af Amer) 76.0 BUN/Creatinine Ratio 22.0 H (10-20) Glucose 104 H (70-99) mg/dl POC Glucose 98 (70-99) Calcium 8.4 L (8.5-10.1) mg/dl (1) Syncope Syncope type: unspecified Qualified Code(s): R55 - Syncope and collapse (2) Closed head injury Encounter type: initial encounter Qualified Code(s): S09.90XA - Unspecified injury of head, initial encounter
[2018-11-07] MEDS: ATORVASTATIN 10 MG TAB PO SCH (20:08)
[2018-11-07] MEDS: GABAPENTIN 600 MG TAB PO SCH (20:09)
[2018-11-08] MEDS: LORazepam 0.5 MG TAB PO SCH (08:58)
[2018-11-08] MEDS: ASPIRIN 81 MG ECTAB PO SCH ×2 (08:59→09:03)
[2018-11-08] MEDS: CALCIUM 600MG + VIT D 400 IU TAB PO SCH (08:59)
[2018-11-08] MEDS: FUROSEMIDE 20 MG TAB PO SCH (09:00)
[2018-11-08] MEDS: GABAPENTIN 300 MG CAP PO SCH (09:00)
[2018-11-08] MEDS: PANTOprazole 40 MG TAB PO SCH (09:00)
[2018-11-08] MEDS: RIVAROXABAN 20 MG TAB PO SCH (09:01)
[2018-11-08] MEDS: CARBIDOPA/LEVODOPA 25/100MG TAB PO SCH ×2 (09:01→13:35)
--- NOTE | 2018-11-08 14:18 | Discharge Summary ---
Date of Service November 08, 2018 Admission HPI Per Admitting Provider Ms. Ramirez fell last night after standing up from sitting. She does not remember falling other than getting lightheaded but does remember hitting. She is not sure if she lost consciousness. She tried to go to bed at 9:30. She was unable to sleep and called her doctor this morning who told her to come to the ED. On Wednesday when she presented to the ED she had come from her provider's office after her blood pressure had dropped. No palpitations or chest pain. She has been a little sob. No cough. She was found to be in A.fib when she presented to the ED two days ago but rate controlled. She did not wish to be admitted and as her heart rate appeared to be well controlled was sent home with metoprolol and Xeralto which she did not start taking yet. Her pharmacy wanted her to verify whether she should be on plavix or Xeralto but did not want her to be on both. She has not taken either today per her pcp's instruction Pmhx: Parkinsons disease, diabetes II, congestive heart failure, acoustic neuroma, Social: lives alone, never smoker, non drinker, former [employer] employee Family: Mother had CHF, Father when she was young in a car accident. Principal Diagnosis Presyncope, Orthostatic hypotension Discharge Exam Constitutional WD/WN, vitals as above Eyes PERRL, conjunctivae normal, anicteric sclerae Neck trachea midline, no thyromegaly Respiratory normal respiratory effort, lungs clear to auscultation Cardiovascular Rate/Rhythm: regular rate; + abnormal rhythm (irreg irreg) Heart Sounds: no murmur Extremities: no edema Gastrointestinal (Abdomen) normal bowel sounds, soft, nontender, no hepatosplenomegaly Musculoskeletal Extremities: extremities normal to inspection; no cyanosis and no clubbing Skin no rashes, warm and dry + ecchymosis (right side of chin and lower cheek); no rashes Neurologic moves all extremities and awake; no focal motor deficits Psychiatric A+Ox3, euthymic affect Discharge Data Allergies Allergy/AdvReac Type Severity Reaction Status Date / Time benztropine Allergy Unknown UNKNOWN Verified 11/04/18 14:56 citalopram Allergy Unknown UNKNOWN Verified 11/04/18 14:56 simvastatin Allergy Unknown UNK Verified 11/04/18 14:56 sulindac Allergy Unknown UNKNOWN Verified 11/04/18 14:56 doxycycline AdvReac Mild NAUSEA Verified 11/04/18 14:56 minocycline AdvReac Mild NAUSEA Verified 11/04/18 14:56 Consultations Cardiology Ordered Studies 11/04/18 13:12 CT head/brain wo con Stat 11/04/18 13:19 CT facial bones wo con Stat CXR Hospital Course (1) Syncope: Near syncope- patient describes becoming light headed with standing resulting in possible loc and then collapse Was orthostatic here initially and this improved with discontinuing her metoprolol and her valsartan CT head and face negative for acute fracture PT/OT evthuy recommended rehab but rehab was denied and SNF would have been approved, however pt was doing kishore well on day of discharge that she chose to go home with home health instead. She was ambulating the halls without assistance and denied any further lightheadedness. Orthostatic vitals were normal on day of discharge. -can use ALMAZ hose, liberalize sodium intake, decreased antihypertensive regimen as above -Plan for 2 week event monitor after discharge to see if has bradycardia or pauses contributing to her presyncopal episodes (2) A-fib: Discovered on presentation to the ED on 11/02 and was started on low dose Toprol and Xarelto at that time and sent home. Continues to be rate controlled and in atrial fibrillation throughout hospitalization despite discontinuing her metoprolol. -continue Xarelto 20mg with dinner after discharge-she already has the Rx from the ER -discontinued Plavix and will continue ASA 81mg daily (previously was on ASA and Plavix at home) Echo with normal EF, no wall motion abnormalities Consult cardiology appreciated -2 week event monitor needed after discharge as baove -f/u with Cardiology after discharge (3) Parkinson disease: May have contributed to fall with autonomic dysfunction leading to ortho stasis Patient has some baseline right sided weakness, uses walker Continue home sinemet -needs PT/OT at home (4) CHF (congestive heart failure): Chronic diastolic chf as EF is preserved, maintained on low dose lasix, is euvolemic at this time -continue lasix 20mg daily for now (5) Non-healing wound: left middle toe with non healing posterior surgical wound Consult wound care appreciated-continue dressing changes and f/u with Dr. Jeff/Podiatry after discharge (6) Orthostatic dizziness: as above -resolved -dcd metoprolol and valsartan -Sinemet and PD could also be contributing but now improved and remains on SInemet-ok to continue (7) Closed head injury: with right sided facial trauma with ecchymosis, no fractures or ICH as per head and face imaging (8) History of TIA (transient ischemic attack): -was on DAPT--> now changed to ASA 81mg daily in addition to Eliquis, STOP Plavix -continue atorvastatin (9) Hypertension: controlled -dcd metoprolol and valsartan as above (10) GERD (gastroesophageal reflux disease): continue PPI (11) Anxiety: stable -continue lorazepam prn (12) Diabetes: Very well controlled, on insulin pump from home Last HgbA1C in our lab system from 11/2017 and is 6.9% -continue home insulin pump -continue accuchecks (13) DVT prophylaxis: SCDs , Xarelto Dispo: Medically stable for discharge today to home with home health Total Time Total Time Spent Total Time Spent (In Minutes): >30 min Total Time Includes: Examination of the Patient, Discharge Planning and Medication Reconciliation Discharge Plan Discharge Items Patient Disposition: Home - Home Health Services Reason For Visit: SYNCOPE Discharge Diagnosis: Syncope,orthostatic hypotension Condition: Good Discharge Goals: Diagnostic testing, Improve disease control, Learn about illness and Therapeutic intervention Activity: Resume your previous activity Lifting: Gradually increase as tolerated Bathing: No limitations Exercise/Sports: Gradually increase as tolerated Non-emergency contact: Primary Care Provider and Beverage Host Call non-emergency contact if: you have any medication questions and your symptoms worsen Follow-up/Referrals: Magdaleno Moody DO [Physician] - (Call for follow up appointment within 1-[address] Moody also wanted you to have an event monitor to wear around for 2 weeks.) Damaris Vega MD [Primary Care Provider] - 11/11/18 8:30 am (Please, follow up at [facility] with Dr. Vega' associate, Dr. Chandra Choi, on WednesdayNovember 11 at 8:30 am. HIS OFFICE IS LOCATED IN [address] OF THE [facility]. THIS IS THE BIG BUILD[facility] LOCATED NEXT TO THIS HOSPITAL. Dr. Vega is on vactation for the next 2 weeks and her colleagues are seeing her patients. We apologize for the inconvenience. If you need to change this appointment, call the office at [phone].) Diet: Carb Consistent or DM2 Addtl Provider Instructions: You were admitted with falls and lightheadedness secondary to your blood pressure dropping too low when you stand up. This is called "Orthostastic hypotension." Your metoprolol and valsartan were both stopped because they were lowering your blood pressure too much. It is important for you to pump the muscles in your legs before you go from a seated or lying position to a standing position to get the blood flowing back to your heart to prevent you from getting lightheaded again. Please drink 6-8 glasses of water or other fluid daily. Please continue taking your new blood thinner called Xarelto each day with dinner. Your Plavix was STOPPED, but you should continue on the daily baby aspirin. Dr. Moody wants to have you wear a cardiac event monitor for 2 weeks and his office set this up for you. Please also follow up with your PCP as scheduled for you. Prescriptions: Continued atorvastatin 10 mg Tablet 10 mg PO PM RF: 0 aspirin [Aspirin Low Dose] 81 mg Tablet,Delayed Release (Dr/Ec) 81 mg PO PM RF: 0 esomeprazole magnesium [Nexium] 40 mg Capsule,Delayed Release(Dr/Ec) 40 mg PO QAM RF: 0 gabapentin 300 mg Capsule 300 mg PO QAM RF: 0 furosemide 20 mg Tablet 20 mg PO QAM RF: 0 carbidopa-levodopa 25-100 mg Tablet 2 tab PO QID RF: 0 calcium carbonate-vitamin D3 [Calcium 500 + D] 500 mg(1,250mg) -200 unit Tablet 1 tab PO QAM RF: 0 cyclosporine 0.05 % Drops 1 drp OPHTHALMIC (EYE) Q12H RF: 0 lorazepam 0.5 mg tablet 0.5 mg PO BID RF: 0 Humalog U-100 Insulin 100 unit/mL Cartridge SUBCUT .INSULIN PUMP RF: 0 Xarelto 20 mg tablet 20 mg PO DAILY Qty: 30 RF: 0 gabapentin 300 mg capsule 600 mg PO PM RF: 0 Discontinued clopidogrel 75 mg Tablet 75 mg PO QAM RF: 0 metoprolol succinate 25 mg tablet extended release 24 hr 12.5 mg PO PM RF: 0 valsartan 160 mg Tablet 160 mg PO PM RF: 0 Stand-Alone Forms: [facility] Discharge Orders: Discharge Order (Routine); Ordered 11/08/18 Ordered By: Lyudmila Vazquez Admission Data Admit Date/Time: 11/06/18 11:33 Attending Provider: Lyudmila Vazquez Admit Provider: Jase Mayo Primary Care Provider: Damaris Vega Other Providers: Caro Torrez Alexander W. Service: Telemetry Other Pending Studies at Discharge: No
== END 2018-11-08 15:29 | disposition home health service (06) | DRG 57 ==
LOC: ED 12:56 → 2S 12:56 → SUATTDRO 11-06 11:33

== ENCOUNTER 2019-10-11 13:11 | Observation (INO) ==
[2019-10-11] MEDS ORDERED: SODIUM CHLORIDE 0.9% 500 ML IV SCH (13:30)
[2019-10-11 13:49] LABS: Appearance Urine Clear (Clear); Bacteria Urine Automated Negative (Negative); Bilirubin Urine Negative (Negative); Blood Urine 2+ (Negative); Cast Urine Automated 0 /lpf (0-5); Color Urine Dark Yellow; Epithelial Cell Urine Auto 0-5 /lpf (0-5); Glucose Urine UA 3+ (Negative); Ketones Urine Trace (Negative); Leukocyte Esterase Urine Negative (Negative); Nitrite Urine Negative (Negative); Protein Urine Negative (Negative); Urobilinogen Urine Negative (Negative); WBC Urine Automated 0 /hpf (0-5)
--- NOTE | 2019-10-11 13:51 | XRay Report ---
XR chest 1V portable CLINICAL HISTORY: 74 years-old Female presenting with weakness. TECHNIQUE: Portable upright AP view of the chest was obtained. COMPARISON: 08/29/2019. FINDINGS: Implanted medical professionals projects over the cardiac silhouette. Atherosclerosis of the aortic arch. Ca rdiac silhouette enlarged. Mild pulmonary vascular prominence. No focal opacity. No large effusion or pneumothorax. Degenerative changes of the thoracic spine. Upper abdomen normal. IMPRESSION: 1. Cardiomegaly with mild volume overload. No jonathan pulmonary edema. ACT 112: Negative or not required by law. Electronically signed by: Alexander Atkinson M.D. 10/11/2019 1:50 PM
[2019-10-11 13:52] LABS: Basophils # (auto) 0.01 K/uL (0-0.2); Basophils % (auto) 0.2 %; Eosinophils # (auto) 0.16 K/uL (0-0.5); Eosinophils % (auto) 2.9 %; Hematocrit (blood only) 38.9 % (37-47); Hemoglobin 13.1 g/dL (12.0-16.0); Immature Granulocytes # (auto) 0.02 K/uL (0.00-0.02); Immature Granulocytes % (auto) 0.4 %; Lymphocytes # (auto) 1.23 K/uL (1.2-3.4); Lymphocytes % (auto) 22.2 %; Mean Corpuscular Hemoglobin 29.3 pg (25-34); Mean Corpuscular Hgb Conc 33.7 g/dL (32-36); Mean Platelet Volume 10.6 fL (7.4-10.4); Monocytes # (auto) 0.46 K/uL (0.11-0.59); Monocytes % (auto) 8.3 %; Neutrophils # (auto) 3.67 K/uL (1.4-6.5); Platelet Count 183 K/uL (130-400); RDW Coefficient of Variation 14.9 % (11.5-14.5); RDW Standard Deviation 47.4 fL (36.4-46.3); Red Blood Count 4.47 M/uL (4.2-5.4); White Blood Count 5.55 K/uL (4.8-10.8)
[2019-10-11 14:01] LABS: INR 1.1 (0.9-1.1); Prothrombin Time 11.2 Seconds (9.0-12.0)
--- NOTE | 2019-10-11 14:06 | CT Scan Report ---
CT cervical spine wo con CLINICAL HISTORY: 74 years-old Female presenting with fall. TECHNIQUE: Multidetector CT of the cervical spine was performed without the use of intravenous contra st. IV contrast: None. One or more dose lowering techniques were used consistent with the principles of ALARA (as low as reasonably achievable), including automatic exposure control, mA or kV adjustment to individual patient size, and/or use of iterative reconstruction. COMPARISON: None. CT DOSE (mGy.cm): The estimated cumulative dose is 1073.59 mGy.cm. FINDINGS: Tutor Coordinator topogram: Unremarkable. Slight reversal of normal cervical lordosis centered at C5. Vertebral bodies otherwise maintain wilver l height and alignment. Varying degrees of intervertebral disc height loss, which is most severe at C 6-7, which may demonstrate partial osseous fusion across the disc space. Prominent disc osteophyte co mplexes from C4-5 through C6-7 with moderate posterior spondylitic spurring eccentrically worse on th e right at C4 and C5. Uncovertebral hypertrophy and milder facet arthropathy result in varying degree s of osseous neural foraminal narrowing. Moderate degenerative changes of the atlantodental articulat ion. No acute fracture or subluxation. Paraspinal musculature within normal limits. Thyromegaly with enlargement of the right thyroid lobe. Lung apices clear. IMPRESSION: 1. No acute osseous injury of the cervical spine. 2. Multilevel degenerative changes. ACT 112: Negative or not required by law. Electronically signed by: Alexander Atkinson M.D. 10/11/2019 2:05 PM
--- NOTE | 2019-10-11 14:09 | CT Scan Report ---
CT OF THE HEAD WITHOUT CONTRAST CLINICAL HISTORY: Altered mental status. Fall. COMPARISON STUDY: Head CT November 04, 2018. MRI of the brain December 26, 2018. TECHNIQUE: Helical axial images of the head were obtained without IV contrast. Automated exposure con trol was utilized for the study. A dose lowering technique was utilized adhering to the principles o f ALARA. FINDINGS: No acute intracranial hemorrhage is present. Ventricular system is normal. Basilar cisterns are patent. There are no extra axial collections. 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 This is grossly unchanged. There are no findings to suggest ac [place] dural sinus thrombosis or acute territorial infarct. 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 There is n o calvarial fracture. IMPRESSION: 1. No acute intracranial findings. 2. No significant change in a right acoustic neuroma since MRI of December 26, [address] by CT. ACT 112: Negative or not required by law. Electronically signed by: Subhash Pearl M.D. 10/11/2019 2:08 PM
[2019-10-11 14:11] LABS: Alanine Aminotransferase 24 U/L (12-78); Albumin Level 3.7 gm/dl (3.4-5.0); Aspartate Aminotransferase 20 U/L (15-37); BUN Creatinine Ratio 18.8 (10-20); Blood Urea Nitrogen 16 mg/dl (7-18); Calcium 8.9 mg/dl (8.5-10.1); Carbon Dioxide 26 mmol/L (21-32); Chloride 108 mmol/L (98-107); Creatinine Clr Calc Pharmacy 68.6 ml/min; Est GFR (African American) 75.5; Est GFR (Non-African American) 65.2; Glucose 235 mg/dl (70-99); Magnesium 2.2 mg/dl (1.8-2.4); Potassium 3.7 mmol/L (3.5-5.1); Sodium 136 mmol/L (136-145)
--- NOTE | 2019-10-11 14:14 | Emergency Department Note ---
Impression & Plan Chest pain, Weakness, Diabetes, Parkinsons disease ED Provider Note NAME: BARRINGTON VIVEROS AGE: 74 SEX: F : 1945 ARRIVES VIA: Ambulance INFORMANT: Patient ED PROVIDER(S): Rnezo Garcia DO CHIEF COMPLAINT: weakness and fall HPI: Patient is a 74-year-old female presents the ER for weakness. She notes that the weakness has been present for the past 1 to 2 weeks. She notes that she is been extremely unsteady on the feet and did fall today. She also c omplains of a runny nose. She notes that she has had chest pain intermittently for the past week as well and believes that it does resolve with rest but is truly unsure. She notes it is a heaviness in the middle of her chest. She denies any shortness of breath arm pain or jaw pain with this. She has no chest pain currently. She is unsure if she has had any chest pain today. She notes that she does use a walker at home and has been increasingly more unsteady as her right leg has become significantly more weaker than usual. She denies any vomiting or diarrhea. No fevers. No dysuria urgency or frequency. ROS: See above HPI for pertinent positives & negatives. A total of 10 systems reviewed and were otherwise negative. PAST MEDICAL HISTORY:See Below PAST SURGICAL HISTORY:See Below FAMILY HISTORY:See Below SOCIAL HISTORY:See Below HOME MEDICATIONS:See Below ALLERGIES:See Below VITALS:See Below PHYSICAL EXAMINATION: GENERAL: Sitting up in bed, chronically ill-appearing, tearful, nontoxic EYE EXAM: normal conjunctiva. PERRL and EOM's intact. OROPHARYNX: no exudate, no erythema, lips, buccal mucosa, and tongue normal and mucous membranes are moist NECK: supple, no nuchal rigidity, no adenopathy, non-tender LUNGS: Clear to auscultation. Normal chest wall mechanics HEART: no murmurs, S1 normal and S2 normal ABDOMEN: abdomen soft, non-tender, normo-active bowel sounds, no masses, no rebound or guarding. SKIN: no rashes and no bruising UPPER EXTREMITIES: upper extremities are grossly normal. LOWER EXTREMITIES: No pitting edema. NEURO EXAM: Awake and alert oriented to person place or time but falls asleep quickly, cranial nerves II-XII intact, normal speech, no weakness of arms, resting tremor in the right upper extremity, flexion and extension bilateral hips knees and ankles 3 out of 5 on the left and 3 out of 5 on the right with exception of the right ankle with no plantarflexion. No drift. Finger to nose intact. Gross sensation intact. MEDICAL DECISION MAKING: Patient is a 74-year-old female with extensive past medical history that presents the ER for a fall associated with weakness, chest pain and right lower extremity weakness. Patient is extremely lethargic and falls asleep quickly. She easily wakes back up. She denies any head pain or neck pain from the fall. No complaints from the fall. CT head and cervical spine were negative. Chest x-ray unremarkable. She has extremely limited movement in the lower extremities which she notes is not new. She does note that her right lower extremity however is weaker than usual although this is been present for about 2 months it has worsened significantly recently. She denies any new back pain. She also complains of chest pain but is unsure if she is having today but notes that she has had it for the past week. IV was established blood work was obtained and shows no significant leukocytosis or anemia. INR unremarkable. BMP with an elevated chloride. Glucose was elevated to 35. LFTs bilirubin was unremarkable. Troponin was negative. UA with small amount of blood. Patient does live at home alone. Do not feel that she can go home at this time. Discussed with hospitalist for observation. Triage Nursing notes reviewed. Prior medical records reviewed Vital Signs: reviewed and remarkable for hypertension Differential diagnosis: Differential Diagnosis includes but is not limited to ischemic Stroke, h emorrhagic stroke, bells palsy, mass, neoplasm, migraine headache, seizure, subarachnoid hemorrhage, TIA, and transient global amnesia. ER treatment provided: See below Diagnostics interpreted by me: ECG: Atrial fibrillation 61 Left axis No PVCs Poor baseline in V4 Normal QTC Cardiac Monitoring: An order was placed for continuous cardiac monitoring. The monitor shows a rate of 65 with A. fib rhythm. Laboratory studies: As stated above and show below. Imaging studies: CT head shows no acute fractures or bleed. CT cervical spine shows no acute fractures or dislocation. Chest x-ray portable AP upright one view shows no focal infiltrate or pneumothorax. Consultation(s): Dr. Nava not any hospitalist. ED COURSE: Procedures: none Critical Care: None Past Med/Surg History Medical History (Updated 10/11/19 @ 16:34 by Renzo Garcia DO) Anxiety CHF (congestive heart failure) Diabetes (Acute) GERD (gastroesophageal reflux disease) History of TIA (transient ischemic attack) Hypertension Mitral valve disorder Obesity Parkinson disease Permanent atrial fibrillation Surgical History (Updated 10/03/19 @ 10:31 by Jaylin Rod PA-C) H/O breast biopsy History of eye surgery Knee joint replacement status (Resolved) S/P appendectomy (Resolved) S/P cholecystectomy (Resolved) Family History (Updated 10/03/19 @ 10:32 by Jaylin Rod PA-C) Mother Colorectal cancer Congestive heart failure Diabetes Hypertension Brother Colorectal cancer Congestive heart failure Sister Cancer Unknown Pancreatic cancer Social History (Updated 10/03/19 @ 10:34 by Jaylin Rod PA-C) Preferred Language: Chinese Communication Ability: Effective Cartography/Mapping Technician Required: No Beliefs That Will Affect Care: None marital status: Current Living Situation: Alone Feels Safe at Home: Yes and No Is there a partner from a previous relationship who is making you feel unsafe now?: No Smoking Status: Never smoker Second Hand Exposure: No ; Hx Alcohol Use: Yes Alcohol type: wine and hard liquor Hx Substance Use: No Allergies Allergies Allergy/AdvReac Type Severity Reaction Status Date / Time benztropine Allergy Unknown UNKNOWN Verified 10/11/19 14:42 citalopram Allergy Unknown UNKNOWN Verified 10/11/19 14:42 simvastatin Allergy Unknown UNK Verified 10/11/19 14:42 sulindac Allergy Unknown UNKNOWN Verified 10/11/19 14:42 doxycycline AdvReac Mild NAUSEA Verified 10/11/19 14:42 minocycline AdvReac Mild NAUSEA Verified 10/11/19 14:42 Home Meds Home Medications Medication Instructions Recorded Confirmed aspirin 81 mg tablet,delayed 81 mg PO DAILY tab 01/19/19 10/11/19 release atorvastatin 10 mg tablet 10 mg PO DAILY tab 01/19/19 10/11/19 calcium carbonate 500 mg (1,250 1 tab PO DAILY tab 01/19/19 10/11/19 mg)-vitamin D3 200 unit tablet cyclosporine 0.05 % eye drops 1 drops OP Q12H 01/19/19 10/11/19 gabapentin 300 mg capsule See Rx Instructions .ROUTE 01/19/19 10/11/19 .COMPLEX cap lorazepam 0.5 mg tablet 0.5 mg PO BID PRN 01/19/19 10/11/19 rivaroxaban 10 mg tablet 10 mg PO QPM 01/19/19 10/11/19 blood sugar diagnostic ea 07/19/19 07/19/19 lancets 33 gauge #100 ea 07/19/19 07/19/19 Previous Rx's Medication Instructions Recorded carbidopa 25 mg-levodopa 100 mg 2 tab PO QID 90 Days #720 tab 04/27/19 tablet Humalog U-100 Insulin 100 unit/mL 120 units SQ .COMPLEX #11 vial NS 06/05/19 subcutaneous solution bumetanide See Rx Instructions .ROUTE 08/31/19 .COMPLEX #30 tab Results & Data (ED) Vital Signs Vital Signs - 24 hr 10/11/19 13:16 10/11/19 13:21 10/11/19 13:30 Temperature 36.6 C Temperature Source Oral Pulse Rate 72 84 67 Pulse Rate from SpO2 Sensor 76 68 Respiratory Rate 17 13 15 Respiratory Effort / Characteristics Non-Labored Spontaneous Respiratory Depth Normal Blood Pressure 168/75 H 168/75 H 165/78 H Blood Pressure Mean 119 106 83 Blood Pressure Position Sitting Pulse Oximetry 99 98 84 L Oxygen Delivery Method Room Air Sepsis Recent Fever Within 48 Hours No Sepsis Action Taken by Nursing No Action Required 10/11/19 14:00 10/11/19 14:02 10/11/19 14:30 Temperature Temperature Source Pulse Rate 68 67 Pulse Rate from SpO2 Sensor 68 71 Respiratory Rate 11 L 12 Respiratory Effort / Characteristics Respiratory Depth Blood Pressure 162/76 H 162/73 H Blood Pressure Mean 79 77 Blood Pressure Position Pulse Oximetry 97 95 98 Oxygen Delivery Method Room Air Sepsis Recent Fever Within 48 Hours Sepsis Action Taken by Nursing 10/11/19 16:08 Temperature Temperature Source Pulse Rate 79 Pulse Rate from SpO2 Sensor 78 Respiratory Rate 16 Respiratory Effort / Characteristics Respiratory Depth Blood Pressure 151/88 H Blood Pressure Mean 118 Blood Pressure Position Pulse Oximetry 97 Oxygen Delivery Method Sepsis Recent Fever Within 48 Hours Sepsis Action Taken by Nursing Laboratory Data Result diagrams: 10/11/19 13:45 10/11/19 13:45 Lab Results 10/11/19 10/11/19 10/11/19 Range/Units 13:37 13:45 13:45 WBC 5.55 (4.8-10.8) K/uL RBC 4.47 (4.2-5.4) M/uL Hgb 13.1 (12.0-16.0) g/dL Hct 38.9 (37-47) % MCV 87.0 (80-100) fL MCH 29.3 (25-34) pg MCHC 33.7 (32-36) g/dL RDW Std Deviation 47.4 H (36.4-46.3) fL RDW Coeff of Vicky 14.9 H (11.5-14.5) % Plt Count 183 (130-400) K/uL MPV 10.6 H (7.4-10.4) fL Immature Gran % (Auto) 0.4 % Neut % (Auto) 66.0 % Lymph % (Auto) 22.2 % Randolph % (Auto) 8.3 % Eos % (Auto) 2.9 % Baso % (Auto) 0.2 % Immature Gran # (Auto) 0.02 (0.00-0.02) K/uL Neut # (Auto) 3.67 (1.4-6.5) K/uL Lymph # (Auto) 1.23 (1.2-3.4) K/uL Randolph # (Auto) 0.46 (0.11-0.59) K/uL Eos # (Auto) 0.16 (0-0.5) K/uL Baso # (Auto) 0.01 (0-0.2) K/uL PT 11.2 (9.0-12.0) Seconds INR 1.1 (0.9-1.1) Sodium (136-145) mmol/L Potassium (3.5-5.1) mmol/L Chloride (98-107) mmol/L Carbon Dioxide (21-32) mmol/L Anion Gap (3-11) BUN (7-18) mg/dl Creatinine (0.6-1.2) mg/dl Est Cr Clr Drug Dosing ml/min Est GFR ( Amer) Est GFR (Non-Af Amer) BUN/Creatinine Ratio (10-20) Glucose (70-99) mg/dl Calcium (8.5-10.1) mg/dl Magnesium (1.8-2.4) mg/dl Total Bilirubin (0.2-1) mg/dl AST (15-37) U/L ALT (12-78) U/L Alkaline Phosphatase (45-117) U/L Total Creatine Kinase (26-192) U/L Troponin I (0-0.045) ng/ml Total Protein (6.4-8.2) gm/dl Albumin (3.4-5.0) gm/dl Globulin (2.5-4.0) gm/dl Albumin/Globulin Ratio (0.9-2) TSH (0.300-4.500) uIu/ml Urine Color Dark Yellow Urine Appearance Clear (Clear) Urine pH 5.0 (4.5-7.5) Ur Specific Corry 1.040 H (1.000-1.030) Urine Protein Negative (Negative) Urine Glucose (UA) 3+ H (Negative) Urine Ketones Trace H (Negative) Urine Blood 2+ H (Negative) Urine Nitrite Negative (Negative) Urine Bilirubin Negative (Negative) Urine Urobilinogen Negative (Negative) Ur Leukocyte Esterase Negative (Negative) Urine WBC (Auto) 0 (0-5) /hpf Urine RBC (Auto) 5-10 H (0-4) /hpf U Hyaline Cast (Auto) 0 (0-5) /lpf U Epithel Cells (Auto) 0-5 (0-5) /lpf Urine Bacteria (Auto) Negative (Negative) 10/11/19 Range/Units 13:45 WBC (4.8-10.8) K/uL RBC (4.2-5.4) M/uL Hgb (12.0-16.0) g/dL Hct (37-47) % MCV (80-100) fL MCH (25-34) pg MCHC (32-36) g/dL RDW Std Deviation (36.4-46.3) fL RDW Coeff of Vicky (11.5-14.5) % Plt Count (130-400) K/uL MPV (7.4-10.4) fL Immature Gran % (Auto) % Neut % (Auto) % Lymph % (Auto) % Randolph % (Auto) % Eos % (Auto) % Baso % (Auto) % Immature Gran # (Auto) (0.00-0.02) K/uL Neut # (Auto) (1.4-6.5) K/uL Lymph # (Auto) (1.2-3.4) K/uL Randolph # (Auto) (0.11-0.59) K/uL Eos # (Auto) (0-0.5) K/uL Baso # (Auto) (0-0.2) K/uL PT (9.0-12.0) Seconds INR (0.9-1.1) Sodium 136 (136-145) mmol/L Potassium 3.7 (3.5-5.1) mmol/L Chloride 108 H (98-107) mmol/L Carbon Dioxide 26 (21-32) mmol/L Anion Gap 2.0 L (3-11) BUN 16 (7-18) mg/dl Creatinine 0.88 (0.6-1.2) mg/dl Est Cr Clr Drug Dosing 68.6 ml/min Est GFR ( Amer) 75.5 Est GFR (Non-Af Amer) 65.2 BUN/Creatinine Ratio 18.8 (10-20) Glucose 235 H (70-99) mg/dl Calcium 8.9 (8.5-10.1) mg/dl Magnesium 2.2 (1.8-2.4) mg/dl Total Bilirubin 1.1 H (0.2-1) mg/dl AST 20 (15-37) U/L ALT 24 (12-78) U/L Alkaline Phosphatase 84 (45-117) U/L Total Creatine Kinase 233 H (26-192) U/L Troponin I < 0.015 (0-0.045) ng/ml Total Protein 6.9 (6.4-8.2) gm/dl Albumin 3.7 (3.4-5.0) gm/dl Globulin 3.2 (2.5-4.0) gm/dl Albumin/Globulin Ratio 1.2 (0.9-2) TSH 2.230 (0.300-4.500) uIu/ml Urine Color Urine Appearance (Clear) Urine pH (4.5-7.5) Ur Specific Corry (1.000-1.030) Urine Protein (Negative) Urine Glucose (UA) (Negative) Urine Ketones (Negative) Urine Blood (Negative) Urine Nitrite (Negative) Urine Bilirubin (Negative) Urine Urobilinogen (Negative) Ur Leukocyte Esterase (Negative) Urine WBC (Auto) (0-5) /hpf Urine RBC (Auto) (0-4) /hpf U Hyaline Cast (Auto) (0-5) /lpf U Epithel Cells (Auto) (0-5) /lpf Urine Bacteria (Auto) (Negative) Administered Medications Discontinued Medications Sodium Chloride (Nss) 500 mls @ 999 mls/hr IV .Q31M LORENZO Stop: 10/11/19 14:00 Last Infusion: 10/11/19 14:19 Dose: 0 mls/hr Documented by: [id number] Admin: 10/11/19 13:45 Dose: 999 mls/hr Documented by: [id number] Discharge Plan Visit Data Chief Complaint: Pain (Generalized) ED Provider: Renzo Garcia Discharge Problem: Chest pain, Weakness, Diabetes, Parkinsons disease Forms Stand Alone Forms: My [facility] [employer] Prescriptions Prescriptions: No Action carbidopa-levodopa 25-100 mg tablet 2 tab PO QID 90 Days Qty: 720 RF: 1 Restasis MultiDose 0.05 % drops 1 drops OP Q12H RF: 0 Xarelto 10 mg tablet 10 mg PO QPM RF: 0 (DME) lancets [OneTouch Delica Lancets] 33 gauge misc See Dose Instructions .ROUTE .MEDSUPPLY Qty: 100 RF: 0 insulin lispro [Humalog U-100 Insulin] 100 unit/mL solution 120 units SQ .COMPLEX Qty: 11 RF: 3 (DME) OneTouch Verio Strip See Dose Instructions .ROUTE .MEDSUPPLY RF: 0 aspirin [Aspirin Low Dose] 81 mg tablet,delayed release (DR/EC) 81 mg PO DAILY RF: 0 calcium carbonate-vitamin D3 [Calcium 500 + D] 500 mg(1,250mg) -200 unit tablet 1 tab PO DAILY RF: 0 atorvastatin 10 mg tablet 10 mg PO DAILY RF: 0 lorazepam 0.5 mg tablet 0.5 mg PO BID PRN (Reason: Anxiety) RF: 0 gabapentin 300 mg capsule See Rx Instructions .ROUTE .COMPLEX RF: 0 bumetanide 1 mg tablet See Rx Instructions .ROUTE .COMPLEX Qty: 30 RF: 0 Referrals Referrals: Damaris Vega MD [Primary Care Provider] - Discharge Problem: Chest pain Qualifiers: Chest pain type: unspecified Qualified Code(s): R07.9 - Chest pain, unspecified Diabetes Qualifiers: Diabetes mellitus type: other specified (including ROXIE) Diabetes mellitus long term care phlebotomist insulin use: unspecified retirement insulin use status Diabetes mellitus complication status: with other specified complication Qualified Code(s): E13.69 - Other specified diabetes mellitus with other specified complication
[2019-10-11 14:22] LABS: Albumin Globulin Ratio 1.2 (0.9-2); Alkaline Phosphatase 84 U/L (45-117); Bilirubin,Total 1.1 mg/dl (0.2-1); Creatine Kinase 233 U/L (26-192); Globulin 3.2 gm/dl (2.5-4.0); Total Protein 6.9 gm/dl (6.4-8.2); Troponin I < 0.015 ng/ml (0-0.045)
--- NOTE | 2019-10-11 15:43 | History & Physical Report ---
Date of Service October 11, 2019 Assessment & Plan (1) Falls: Patient will be placed in observation. Unclear why she is having more frequent falls but she is a safety risk as she lives alone. Does not appear to have acute infection at this time and as her mentation seems to be clear despite lethargy, unclear if she has acute encephalopathy. See further notes below. (2) Parkinson disease: May have a worsening Parkinson's disease. She is on Sinemet which we will continue. PT/OT evaluation. Check orthostatics. Patient follows with an neurologist at [facility], consider consultation with neurology here in if initial work-up not revealing. (3) Diabetes type 2, uncontrolled: Patient is on insulin which we will continue, start ADA diet when more alert. Check hemoglobin A1c. (4) CHF (congestive heart failure): Patient has frequent admissions for diastolic CHF with exacerbation but appears to be stable here. Continue to monitor. She is on bumetanide which we will continue as outpatient. (5) Hypertension: Blood pressure elevated, patient is not on any blood pressure medications outside of diuretics. Consider starting new agent if blood pressure does not improve the next 24 hours. (6) Atrial fibrillation: Appears to be rate controlled. Keep patient on house painter to ensure patient is not having runs of tachycardia. I see she is on Xarelto at home and will continue this as well. History of Present Illness Primary Care Provider: Damaris Vega MD This is a 74-year-old female with past medical history of Parkinson's disease, uncontrolled diabetes, and CHF that presents today secondary to weakness and falls. Patient is a somewhat limited historian as she appears to be mildly confused, bulk of history per chart. ER physician explained me that the patient arrived and appear to be globally weak, although much worse in the right lower extremity. Patient admitted this occurred over the past 1-2 weeks. She is extremely unsteady on her feet. Patient typically uses a walker at home and that she lives alone. The ER physician also determined the patient had occasional chest pain. I did asked the patient about this she denies that she is having this now but on further questioning may have had it in the past. Patient denies any infectious symptoms such as fever or chills, nausea or vomiting. Is unclear where her appetite is been. I do see from the chart that she has a history of CHF and has been here frequently with exacerbations per the patient denies any shortness of breath or dyspnea on exertion at this time. At the time of my evaluation, the patient was asleep but difficult to arouse. She did wake up and was oriented to person and place only. She was somewhat difficult to question but seem to answer appropriately with prompting. She does not appear to be in any distress. When asked specifically, the patient denied any recent medication changes. Allergies Allergy/AdvReac Type Severity Reaction Status Date / Time benztropine Allergy Unknown UNKNOWN Verified 10/11/19 14:42 citalopram Allergy Unknown UNKNOWN Verified 10/11/19 14:42 simvastatin Allergy Unknown UNK Verified 10/11/19 14:42 sulindac Allergy Unknown UNKNOWN Verified 10/11/19 14:42 doxycycline AdvReac Mild NAUSEA Verified 10/11/19 14:42 minocycline AdvReac Mild NAUSEA Verified 10/11/19 14:42 Home Medications Home Medications Medication Instructions Recorded Confirmed Type aspirin 81 mg tablet,delayed 81 mg PO DAILY tab 01/19/19 10/11/19 History release atorvastatin 10 mg tablet 10 mg PO DAILY tab 01/19/19 10/11/19 History calcium carbonate 500 mg (1,250 1 tab PO DAILY tab 01/19/19 10/11/19 History mg)-vitamin D3 200 unit tablet cyclosporine 0.05 % eye drops 1 drops OP Q12H 01/19/19 10/11/19 History gabapentin 300 mg capsule See Rx Instructions .ROUTE 01/19/19 10/11/19 History .COMPLEX cap lorazepam 0.5 mg tablet 0.5 mg PO BID PRN 01/19/19 10/11/19 History rivaroxaban 10 mg tablet 10 mg PO QPM 01/19/19 10/11/19 History carbidopa 25 mg-levodopa 100 mg 2 tab PO QID 90 Days #720 tab 04/27/19 10/11/19 Rx tablet Humalog U-100 Insulin 100 unit/mL 120 units SQ .COMPLEX #11 vial NS 06/05/19 10/11/19 Rx subcutaneous solution blood sugar diagnostic ea 07/19/19 07/19/19 History lancets 33 gauge #100 ea 07/19/19 07/19/19 History bumetanide See Rx Instructions .ROUTE 08/31/19 10/11/19 Rx .COMPLEX #30 tab Past Med/Surg History Medical History (Updated 10/11/19 @ 16:09 by Florentino Nava DO) Anxiety CHF (congestive heart failure) Diabetes GERD (gastroesophageal reflux disease) History of TIA (transient ischemic attack) Hypertension Mitral valve disorder Obesity Parkinson disease Permanent atrial fibrillation Surgical History (Updated 10/03/19 @ 10:31 by Jaylin Rod PA-C) H/O breast biopsy History of eye surgery Knee joint replacement status (Resolved) S/P appendectomy (Resolved) S/P cholecystectomy (Resolved) Family History (Updated 10/03/19 @ 10:32 by Jaylin Rod PA-C) Mother Colorectal cancer Congestive heart failure Diabetes Hypertension Brother Colorectal cancer Congestive heart failure Sister Cancer Unknown Pancreatic cancer Social History (Updated 10/03/19 @ 10:34 by Jaylin Rod PA-C) Preferred Language: Togolese Communication Ability: Effective Admitting Counselor Required: No Beliefs That Will Affect Care: None marital status: Current Living Situation: Alone Feels Safe at Home: Yes and No Is there a partner from a previous relationship who is making you feel unsafe now?: No Smoking Status: Never smoker Second Hand Exposure: No ; Hx Alcohol Use: Yes Alcohol type: wine and hard liquor Hx Substance Use: No Review of Systems Review of Systems: Limited secondary to patient's lethargy Constitutional: no fever, no chills, no weakness, no weight loss and no weight gain Eyes: as per Subjective / HPI Respiratory: no cough, no chest congestion, no dyspnea and no dyspnea on exertion Cardiovascular: + chest pain; no orthopnea, no palpitations, no lightheadedness and no edema Gastrointestinal: no abdominal pain, no nausea, no vomiting, no constipation and no diarrhea/loose stools Genitourinary: no dysuria, no difficulty urinating, no urinary frequency, no urinary hesitancy, no urinary urgency and no flank pain Musculoskeletal: + muscle weakness; no back pain, no neck pain, no joint pain, no stiffness and no myalgia Integumentary: no rash Neurologic: no gait abnormality, no unsteadiness, no falls and no generalized weakness Physical Exam Constitutional: cooperative and + lethargic; no acute distress Neck: trachea midline, no thyromegaly Respiratory: normal respiratory effort Auscultation: lungs clear to auscultation bilaterally; no crackles, no rales, no rhonchi and no wheezes Very limited exam Cardiovascular: Rate/Rhythm: regular rate and regular rhythm Heart Sounds: normal S1 and normal S2 Gastrointestinal (Abdomen): Inspection/Auscultation: abdomen normal to inspection Percussion/Palpation: abdomen soft; abdomen nontender, no guarding, abdomen not rigid and no hepatosplenomegaly Musculoskeletal: 4 out of 5 upper extremity strength. Equal bilaterally. 2 out of 5 lower extremity strength, appears to be equal bilaterally. Skin: no rashes, warm and dry Results & Data Results & Data ([facility]) Vital Signs (Past 12 Hours) Vital Signs Temp Pulse Resp BP Pulse Ox 10/11/19 14:30 67 12 162/73 H 98 10/11/19 14:02 95 10/11/19 14:00 68 11 L 162/76 H 97 10/11/19 13:30 67 15 165/78 H 84 L 10/11/19 13:21 36.6 C 84 13 168/75 H 98 10/11/19 13:16 72 17 168/75 H 99 Laboratory Results WBC of 5.5, hemoglobin of 13.1 with hematocrit of 38.9. Platelets of 183. INR is 1.1. Sodium 136, potassium 3.7, chloride 108, CO2 26, BUN 16 with creatinine 0.88. This appears to be baseline. Blood sugar is 235. Calcium 8.9. Magnesium 2.2. LFTs are normal. Creatinine kinase 233. Troponin is nondetectable. UA shows 3+ glucose, trace ketones, 2+ blood, 5-10 RBCs, otherwise negative. Diagnostic Findings CT OF THE HEAD WITHOUT CONTRAST CLINICAL HISTORY: Altered mental status. Fall. COMPARISON STUDY: Head CT November 04, 2018. MRI of the brain December 26, 2018. TECHNIQUE: Helical axial images of the head were obtained without IV contrast. Automated exposure control was utilized for the study. A dose lowering technique was utilized adhering to the principles of ALARA. FINDINGS: No acute intracranial hemorrhage is present. Ventricular system is normal. Basilar cisterns are patent. There are no extra axial collections. A right cerebellopontine angle mass is better depicted on MRI of the brain December 26, 2018. This is grossly unchanged. There are no findings to suggest acute dural sinus thrombosis or acute territorial infarct. 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 There is no calvarial fracture. IMPRESSION: 1. No acute intracranial findings. 2. No significant change in a right acoustic neuroma since MRI of December 26, [address] by CT. --- XR chest 1V portable CLINICAL HISTORY: 74 years-old Female presenting with weakness. TECHNIQUE: Portable upright AP view of the chest was obtained. COMPARISON: 08/29/2019. FINDINGS: Implanted medical facilities section director projects over the cardiac silhouette. Atherosclerosis of the aortic arch. Cardiac silhouette enlarged. Mild pulmonary vascular prominence. No focal opacity. No large effusion or pneumothorax. Degenerative changes of the thoracic spine. Upper abdomen normal. IMPRESSION: 1. Cardiomegaly with mild volume overload. No jonathan pulmonary edema. PG Care Time/CCT Total # of Minutes Spent Total Time Spent with Patient: Total time spent is greater than 50% in coordination of care (as documented) at patient's floor/unit and/or counseling patient: Coding Level of Care Code 37102 OBS Care - Level 3 Diagnoses Falls W19.XXXA Parkinson disease G20 Diabetes type 2, uncontrolled E11.65 CHF (congestive heart failure) I50.9 Hypertension I10 Atrial fibrillation I48.91
--- NOTE | 2019-10-11 17:14 | Electrocardiogram Report ---
Test Reason : Blood Pressure : / mmHG Vent. Rate : 061 BPM Atrial Rate : 340 BPM P-R Int : 000 ms QRS Dur : 092 ms QT Int : 404 ms P-R-T Axes : 000 -57 068 degrees QTc Int : 406 ms Atrial fibrillation Low voltage QRS Left anterior fascicular block Nonspecific T wave abnormality Abnormal ECG When compared with ECG of 29-AUG-2019 16:25, No significant change was found Confirmed by Tarun Briones ([id number]) on 10/11/2019 5:13:45 PM Referred By: Confirmed By:Nicho Briones
[2019-10-11] MEDS ORDERED: GLUCOSE 40% GEL 15 GM TUBE PO PRN (17:57)
[2019-10-11] MEDS ORDERED: DEXTROSE 50% 50 ML SYRINGE IV PRN (17:57)
[2019-10-11] MEDS ORDERED: ACETAMINOPHEN 325 MG TAB PO PRN (17:57)
[2019-10-11] MEDS ORDERED: GLUCAGON FOR INJ 1 MG VIAL SQ PRN (17:57)
[2019-10-11] MEDS ORDERED: CARBOHYDRATES FOR HYPOGLYCEMIA PO PRN (17:57)
[2019-10-11] MEDS ORDERED: GLUCOSE 10 TABS/TUBE PO PRN (17:57)
[2019-10-11] MEDS ORDERED: ONDANSETRON INJ 2 MG/ML 2 ML VIAL IV PRN (17:57)
[2019-10-11] MEDS: CARBIDOPA/LEVODOPA 25/100MG TAB PO SCH ×2 (18:49→19:56)
[2019-10-11] MEDS: RIVAROXABAN 10 MG TABLET PO SCH (19:56)
[2019-10-11] MEDS: GABAPENTIN 300 MG CAP PO SCH (19:56)
[2019-10-11] MEDS: NovoLOG INSULIN PUMP SCH (19:57)
[2019-10-12 06:35] LABS: Hematocrit (blood only) 38.2 % (37-47); Hemoglobin 12.6 g/dL (12.0-16.0); Mean Corpuscular Volume 87.8 fL (80-100); Red Blood Count 4.35 M/uL (4.2-5.4); White Blood Count 5.04 K/uL (4.8-10.8)
[2019-10-12 06:36] LABS: Basophils # (auto) 0.02 K/uL (0-0.2); Basophils % (auto) 0.4 %; Eosinophils # (auto) 0.22 K/uL (0-0.5); Eosinophils % (auto) 4.4 %; Immature Granulocytes # (auto) 0.01 K/uL (0.00-0.02); Immature Granulocytes % (auto) 0.2 %; Lymphocytes % (auto) 25.8 %; Mean Platelet Volume 10.5 fL (7.4-10.4); Monocytes % (auto) 9.9 %; Neutrophils # (auto) 2.99 K/uL (1.4-6.5); Neutrophils % (auto) 59.3 %; Platelet Count 176 K/uL (130-400); RDW Coefficient of Variation 15.1 % (11.5-14.5); RDW Standard Deviation 48.6 fL (36.4-46.3)
[2019-10-12 06:40] LABS: Estimated Average Glucose 200 mg/dl; Hemoglobin A1C 8.6 % (4.5-5.6)
[2019-10-12 07:10] LABS: BUN Creatinine Ratio 20.2 (10-20); Calcium 8.6 mg/dl (8.5-10.1); Creatinine Clr Calc Pharmacy 80.1 ml/min; Est GFR (African American) 93.2; Est GFR (Non-African American) 80.4; Magnesium 2.2 mg/dl (1.8-2.4); Potassium 3.8 mmol/L (3.5-5.1)
[2019-10-12] MEDS ORDERED: PHARMACY GLYCEMIC MGMT CONSULT PRN (09:18)
[2019-10-12] MEDS: ATORVASTATIN 10 MG TAB PO SCH (09:55)
[2019-10-12] MEDS: CARBIDOPA/LEVODOPA 25/100MG TAB PO SCH ×4 (09:55→21:07)
[2019-10-12] MEDS: CALCIUM 600MG + VIT D 400 IU TAB PO SCH (09:55)
[2019-10-12] MEDS: ASPIRIN 81 MG ECTAB PO SCH (09:55)
[2019-10-12] MEDS: BUMETANIDE 1 MG TAB PO SCH (09:59)
[2019-10-12] MEDS: NovoLOG INSULIN PUMP SCH (10:03)
[2019-10-12] MEDS ORDERED: INSULIN GLARGINE SOLOSTAR 100 UNITS/ML 3 ML PEN SC ONE (10:30)
--- NOTE | 2019-10-12 10:31 | Pharmacy Report ---
Pharmacy Glycemic Short Note 2 - Date of Service October 12, 2019 - Glycemic Short BSG Results (Last 24 hours): 10/11/19 10/11/19 10/11/19 13:45 18:09 21:18 Glucose 235 H POC Glucose 244 H 238 H 10/12/19 10/12/19 06:08 07:32 Glucose 129 H POC Glucose 113 H OUTPATIENT ANTIDIABETIC REGIMEN: * A1c = 8.6% (10/12/19) * Humalog insulin pump; below doses per August 2019 admission * basal: 3 units/hr * CR: 1 unit for every 4 grams CHO * 6 units with breakfast, 8 units with lunch, 8-15 units with dinner ASSESSMENT: * Sabine is a 74 yo T2DM female admitted secondary to weakness and falls. * Patient was continued on home humalog insulin pump on admission. * Pharmacy consulted on 10/11 to transition patient to SQ basal + bolus insulin regimen. Patient being taken off insulin pump due to confusion and therefore concern for self-management. * Will base SQ doses on past admission (from 08/29/19): * During this admission it appeared patient would require > 100 units/day to maintain adequate glycemic control * Lantus 25 units BID (not at steady state) produced a fasting BSG of 137 mg/dL * Novolog dosing equivalent to weight/stress 3 PLAN FOR INPATIENT GLYCEMIC CONTROL: * Basal insulin * Discontinue home insulin pump * Lantus 25 units SQ BID * Bolus insulin * NovoLog per scale ACHS or Q6hrs while NPO * Goal Range: Low 110 mg/dL - High 140 mg/dL * Correction Factor: 15 mg/dL/unit * Nutritional / Prandial insulin per carb ratio of 1 unit per 5 grams CHO consumed PLAN FOR DISCHARGE: * A1c 8.6% (slight improvement compared to 9% during August admission) * d/c recs pending
[2019-10-12] MEDS: INSULIN ASPART 100 UNITS/ML 3 ML PEN SC SCH ×3 (12:50→21:06)
--- NOTE | 2019-10-12 13:48 | Neurology Consultation ---
Date of Consultation October 12, 2019 Assessment & Plan (1) Diabetic peripheral neuropathy: (2) Parkinson disease: (3) Ataxic gait: A 74 year old woman with Hx of Afib on Xarleto, PD on SInemet 25/100 2 tabs QID and poorly controlled diabetic peripheral neuropathy admitted secondary to unsteady gait and falls. Has walker at home. Compliant with medications. 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 - Recommend PT/OT for rehab needs as deconditioning is likely contributing - Continue home dose of Sinemet - HA1c goal< 7. Please call with any further questions or concerns. History of Present Illness Attending Physician: Geoffrey Castro History of Present Illness A 74 year old woman with parkinsons disease on Sinemet 25/100 2 tabs QID admitted for falls and weakness. Patient follows with Dr. Wen and last seen in 07/2019. Admitted yesterday for falls and weakness. Neurology consulted for PD recommendations. CT head was Negative for acute intracranial process. Ha1c 8.6. patient uses a walker at home. Is on Xarelto for Afib. Noted to be weak with focal weakness in right LE on admission. Patient reports compliance with her medications. States she feels better today. Allergies Allergy/AdvReac Type Severity Reaction Status Date / Time benztropine Allergy Unknown UNKNOWN Verified 10/11/19 14:42 citalopram Allergy Unknown UNKNOWN Verified 10/11/19 14:42 simvastatin Allergy Unknown UNK Verified 10/11/19 14:42 sulindac Allergy Unknown UNKNOWN Verified 10/11/19 14:42 doxycycline AdvReac Mild NAUSEA Verified 10/11/19 14:42 minocycline AdvReac Mild NAUSEA Verified 10/11/19 14:42 Home Medications Home Medications Medication Instructions Recorded Confirmed Type aspirin 81 mg tablet,delayed 81 mg PO DAILY tab 01/19/19 10/11/19 History release atorvastatin 10 mg tablet 10 mg PO DAILY tab 01/19/19 10/11/19 History calcium carbonate 500 mg (1,250 1 tab PO DAILY tab 01/19/19 10/11/19 History mg)-vitamin D3 200 unit tablet cyclosporine 0.05 % eye drops 1 drops OP Q12H 01/19/19 10/11/19 History gabapentin 300 mg capsule See Rx Instructions .ROUTE 01/19/19 10/11/19 History .COMPLEX cap lorazepam 0.5 mg tablet 0.5 mg PO BID PRN 01/19/19 10/11/19 History rivaroxaban 10 mg tablet 10 mg PO QPM 01/19/19 10/11/19 History carbidopa 25 mg-levodopa 100 mg 2 tab PO QID 90 Days #720 tab 04/27/19 10/11/19 Rx tablet Humalog U-100 Insulin 100 unit/mL 120 units SQ .COMPLEX #11 vial NS 06/05/19 10/11/19 Rx subcutaneous solution blood sugar diagnostic ea 07/19/19 07/19/19 History lancets 33 gauge #100 ea 07/19/19 07/19/19 History bumetanide See Rx Instructions .ROUTE 08/31/19 10/11/19 Rx .COMPLEX #30 tab Patient History Medical History (Updated 10/12/19 @ 00:02 by Haylie Kolb) Anxiety CHF (congestive heart failure) Diabetes (Acute) GERD (gastroesophageal reflux disease) History of TIA (transient ischemic attack) Hypertension Mitral valve disorder Obesity Parkinson disease Permanent atrial fibrillation Surgical History (Updated 10/03/19 @ 10:31 by Jaylin Rod PA-C) H/O breast biopsy History of eye surgery Knee joint replacement status (Resolved) S/P appendectomy (Resolved) S/P cholecystectomy (Resolved) Family History (Updated 10/03/19 @ 10:32 by Jaylin Rod PA-C) Mother Colorectal cancer Congestive heart failure Diabetes Hypertension Brother Colorectal cancer Congestive heart failure Sister Cancer Unknown Pancreatic cancer Social History (Updated 10/03/19 @ 10:34 by Jaylin Rod PA-C) Preferred Language: [place] Communication Ability: Effective Testing Director Required: No Beliefs That Will Affect Care: None marital status: Current Living Situation: Alone Other Information That Helps Us Care for You: No Feels Safe at Home: Yes Safety Concerns: Feels Safe At This Time Smoking Status: Never smoker Second Hand Exposure: No ; Hx Alcohol Use: No Hx Substance Use: No Physical Exam Physical Exam: Appears stated age. No distress. Sleeping in chair. SPeech is soft but clear. following commands. Dysconjugate gaze. Face symetric. Hearing intact. Tongue midline. Numbness in feet. Obese woman. She can repeat. Oriented to place and time. Unable to stand without assistance. Ambulates with wide base gait tunes on bloc using walker. Short stride. No tremor noted. Hip flexion is symmetric, 5/5. Results & Data Vital Signs (Past 12 Hours) Vital Signs Temp Pulse Pulse Resp BP Pulse Ox 10/12/19 11:02 36.8 C 61 16 125/66 98 10/12/19 10:49 58 L 10/12/19 07:45 36.5 C 64 16 117/68 96 10/12/19 03:00 36.4 C L 63 16 95
[2019-10-12] MEDS ORDERED: INSULIN GLARGINE SOLOSTAR 100 UNITS/ML 3 ML PEN SC SCH (21:00)
[2019-10-12] MEDS: RIVAROXABAN 10 MG TABLET PO SCH (21:08)
[2019-10-12] MEDS: GABAPENTIN 300 MG CAP PO SCH (21:09)
[2019-10-12] MEDS ORDERED: LORazepam 0.5 MG TAB PO PRN (22:23)
--- NOTE | 2019-10-12 22:53 | Hospitalist Progress Note ---
Date of Service October 12, 2019 Assessment & Plan (1) Falls: Patient continues to be under Observation. Appears this may have been decondtioning from lack of Physical therapy as well as having underlying parkinsons. There were questions in the past that patient has had syncope but this does not appear to be the case with this particular episode. Will remain on tele though as there has been question of possible arrythmias in the past. (2) Parkinson disease: May have a worsening Parkinson's disease. She is on Sinemet which we will continue. Will have her f/u with [email or web address] as an outpatient. (3) Diabetes type 2, uncontrolled: Patient is on insulin which we will continue, start ADA diet when more alert. Check hemoglobin A1c. (4) CHF (congestive heart failure): Patient has frequent admissions for diastolic CHF with exacerbation but appears to be stable here. Continue to monitor. She is on bumetanide which we will continue as outpatient. (5) Hypertension: Blood pressure elevated, patient is not on any blood pressure medications outside of diuretics. Consider starting new agent if blood pressure does not improve the next 24 hours. (6) Atrial fibrillation: Appears to be rate controlled. Keep patient on tube bender to ensure patient is not having runs of tachycardia. I see she is on Xarelto at home and will continue this as well. Admission and Anticipated Discharge Date Admission Date: October 11, 2019 Subjective 74 yo female reports she has been gradually getting weaker over past month. She reports this is due to the COVID 19 infection, and PT was closed. Patient denies passing out before being admitted, she had a mechanical fall. She does report having syncope as an outpatient which has brought her in to the hospital. Review of Systems Review of Systems: All systems reviewed & are unremarkable except as noted in HPI & below Physical Exam Physical Exam: Constitutional: cooperative and awake, no acute distress Neck: trachea midline, no thyromegaly Respiratory: normal respiratory effort Auscultation: lungs clear to auscultation bilaterally; no crackles, no rales, no rhonchi and no wheezes Cardiovascular: Rate/Rhythm: regular rate and regular rhythm Heart Sounds: normal S1 and normal S2 Gastrointestinal (Abdomen): Inspection/Auscultation: abdomen normal to inspection Percussion/Palpation: abdomen soft; abdomen nontender, no guarding, abdomen not rigid and no hepatosplenomegaly Musculoskeletal: 4 out of 5 upper extremity strength. Equal bilaterally. 2 out of 5 lower extremity strength, appears to be equal bilaterally. Skin: no rashes, warm and dry Results & Data Results & Data ([facility]) Vital Signs (Past 12 Hours) Vital Signs Temp Pulse Pulse Resp BP Pulse Ox 10/12/19 19:36 36.8 C 67 18 160/71 H 96 10/12/19 16:00 59 L 10/12/19 15:02 36.8 C 58 L 16 108/60 97 10/12/19 11:02 36.8 C 61 16 125/66 98 PG Care Time/CCT Total # of Minutes Spent Total Time Spent with Patient: Total time spent is greater than 50% in coordination of care (as documented) at patient's floor/unit and/or counseling patient: Coding Level of Care Code 96741 Subseq Obs Care Lvl 3 Diagnoses Falls W19.[id number] Parkinson disease G20 Diabetes type 2, uncontrolled E11.65 CHF (congestive heart failure) I50.9 Hypertension I10 Atrial fibrillation I48.91 Time Spent (min) 35
[2019-10-13] MEDS: CARBIDOPA/LEVODOPA 25/100MG TAB PO SCH ×2 (08:15→12:25)
[2019-10-13] MEDS: CALCIUM 600MG + VIT D 400 IU TAB PO SCH (08:17)
[2019-10-13] MEDS: ASPIRIN 81 MG ECTAB PO SCH (08:17)
[2019-10-13] MEDS: ATORVASTATIN 10 MG TAB PO SCH (08:17)
[2019-10-13] MEDS: BUMETANIDE 1 MG TAB PO SCH (08:17)
[2019-10-13] MEDS: INSULIN ASPART 100 UNITS/ML 3 ML PEN SC SCH ×2 (08:18→12:23)
[2019-10-13] MEDS ORDERED: INSULIN GLARGINE SOLOSTAR 100 UNITS/ML 3 ML PEN SC SCH ×2 (09:00→21:00)
--- NOTE | 2019-10-13 12:54 | Pharmacy Report ---
Pharmacy Glycemic Short Note 2 - Date of Service October 13, 2019 - Glycemic Short BSG Results (Last 24 hours): 10/12/19 10/12/19 10/13/19 16:16 19:56 07:22 POC Glucose 97 138 H 148 H 10/13/19 11:26 POC Glucose 186 H OUTPATIENT ANTIDIABETIC REGIMEN: * A1c = 8.6% (10/12/19) * Humalog insulin pump; below doses per August 2019 admission * basal: 3 units/hr * CR: 1 unit for every 4 grams CHO * 6 units with breakfast, 8 units with lunch, 8-15 units with dinner INPATIENT BSG/INSULIN REGIMEN: ASSESSMENT: 10/12: * Adequate glycemic control over the past 25 hours on basal + bolus regimen * Will make slight change to Novolog carb ratio due to BSG elevation at lunchtime * Fasting BSG acceptable (basal not at steady state) 10/11: * Sabine is a 74 yo T2DM female admitted secondary to weakness and falls. * Patient was continued on home humalog insulin pump on admission. * Pharmacy consulted on 10/11 to transition patient to SQ basal + bolus insulin regimen. Patient being taken off insulin pump due to confusion and therefore concern for self-management. * Will base SQ doses on past admission (from 08/29/19): * During this admission it appeared patient would require > 100 units/day to maintain adequate glycemic control * Lantus 25 units BID (not at steady state) produced a fasting BSG of 137 mg/dL * Novolog dosing equivalent to weight/stress 3 PLAN FOR INPATIENT GLYCEMIC CONTROL: * Basal insulin * Lantus 25-30 units SQ BID * 25 units for BSG < 140, 30 units for BSG of 140 or more * Bolus insulin - tighten carb ratio * NovoLog per scale ACHS or Q6hrs while NPO * Goal Range: Low 110 mg/dL - High 140 mg/dL * Correction Factor: 15 mg/dL/unit * Nutritional / Prandial insulin per carb ratio of 1 unit per 4.5 grams CHO consumed PLAN FOR DISCHARGE: * A1c 8.6% (slight improvement compared to 9% during August admission) * Reasonable to resume insulin pump at home settings and follow up with outpatient provider for titration of insulin settings If patient is discharged 10/12: * recommend she receives her evening dose of Lantus 25 units prior to discharge * resume insulin pump on 10/13 @ 0800
--- NOTE | 2019-10-19 23:08 | Discharge Summary ---
Date of Service October 13, 2019 Admission HPI Per Admitting Provider This is a 74-year-old female with past medical history of Parkinson's disease, uncontrolled diabetes, and CHF that presents today secondary to weakness and falls. Patient is a somewhat limited historian as she appears to be mildly confused, bulk of history per chart. ER physician explained me that the patient arrived and appear to be globally weak, although much worse in the right lower extremity. Patient admitted this occurred over the past 1-2 weeks. She is extremely unsteady on her feet. Patient typically uses a walker at home and that she lives alone. The ER physician also determined the patient had occasional chest pain. I did asked the patient about this she denies that she is having this now but on further questioning may have had it in the past. Patient denies any infectious symptoms such as fever or chills, nausea or vomiting. Is unclear where her appetite is been. I do see from the chart that she has a history of CHF and has been here frequently with exacerbations per the patient denies any shortness of breath or dyspnea on exertion at this time. At the time of my evaluation, the patient was asleep but difficult to arouse. She did wake up and was oriented to person and place only. She was somewhat difficult to question but seem to answer appropriately with prompting. She does not appear to be in any distress. When asked specifically, the patient denied any recent medication changes. Principal Diagnosis Deconditioning/ weakness in a [facility] patient Discharge Exam Constitutional: cooperative and awake, no acute distress Neck: trachea midline, no thyromegaly Respiratory: normal respiratory effort Auscultation: lungs clear to auscultation bilaterally; no crackles, no rales, no rhonchi and no wheezes Cardiovascular: Rate/Rhythm: regular rate and regular rhythm Heart Sounds: normal S1 and normal S2 Gastrointestinal (Abdomen): Inspection/Auscultation: abdomen normal to inspection Percussion/Palpation: abdomen soft; abdomen nontender, no guarding, abdomen not rigid and no hepatosplenomegaly Musculoskeletal: 4 out of 5 upper extremity strength. Equal bilaterally. 2 out of 5 lower extremity strength, appears to be equal bilaterally. Skin: no rashes, warm and dry Discharge Data Allergies Allergy/AdvReac Type Severity Reaction Status Date / Time benztropine Allergy Unknown UNKNOWN Verified 10/11/19 14:42 citalopram Allergy Unknown UNKNOWN Verified 10/11/19 14:42 simvastatin Allergy Unknown UNK Verified 10/11/19 14:42 sulindac Allergy Unknown UNKNOWN Verified 10/11/19 14:42 doxycycline AdvReac Mild NAUSEA Verified 10/11/19 14:42 minocycline AdvReac Mild NAUSEA Verified 10/11/19 14:42 Consultations 10/11/19 14:49 ED Decision to Admit Stat 10/12/19 09:04 Consult Neurology Routine Ordered Studies 10/11/19 13:29 CT cervical spine wo con Stat CT head/brain wo con Stat Hospital Course (1) Falls: Patient continues to be under Observation. Appears this may have been deconditioning from lack of Physical therapy as well as having underlying parkinsons. There were questions in the past that patient has had syncope but this does not appear to be the case with this particular episode. Will discharge patient on home Physical Therapy. Patient refused rehab. (2) Parkinson disease: May have a worsening Parkinson's disease. She is on Sinemet which we will continue. Will have her f/u with [facility] as an outpatient. (3) Diabetes type 2, uncontrolled: Patient is on insulin which we will continue, start ADA diet when more alert. Check hemoglobin A1c. (4) CHF (congestive heart failure): Patient has frequent admissions for diastolic CHF with exacerbation but appears to be stable here. Continue to monitor. She is on bumetanide which we will continue as outpatient. (5) Hypertension: Blood pressure elevated, patient is not on any blood pressure medications outside of diuretics. Consider starting new agent if blood pressure does not improve the next 24 hours. (6) Atrial fibrillation: Appears to be rate controlled. Keep patient on telemetry monitor to ensure patient is not having runs of tachycardia. I see she is on Xarelto at home and will continue this as well. Total Time Total Time Spent Total Time Spent (In Minutes): 33 Total Time Includes: Examination of the Patient, Discharge Planning and Medication Reconciliation Discharge Plan Discharge Items Patient Disposition: Home - Home Health Services Reason For Visit: GENERALIZED WEAKNESS Discharge Diagnosis: Generalized weakness Activity: Resume your previous activity Non-emergency contact: Primary Care Provider Call non-emergency contact if: you have any medication questions Follow-up/Referrals: Damaris Vega MD [Primary Care Provider] - Diet: Carb Consistent or DM2 Addtl Attending Provider Instructions: Please restart insulin pump tomorrow MORNING on 10/14/19. It appears you will benefit from home physical therapy. This will help get you stronger. Coronavirus disease 2019 (COVID-19) is a virus that causes a respiratory illness. It is caused by a coronavirus called 2019 novel coronavirus (2019- nCoV). There are many types of coronavirus. Coronaviruses are a very common cause of bronchitis. They may sometimes cause lung infection(pneumonia). Symptoms can range from mild to severe respiratory illness. These viruses are also foundin some animals. COVID-19 was first found in people in [facility], in late 2019. In 2020, several cases of COVID-19 have been confirmed in the [place] Public health officials are working to find the source. How the virus spreads is not yet fully known. It may be spread through droplets of fluid that a person coughs or sneezes into the air. It may be spread if you touch a surface with virus on it, such as a handle or object, and then touch your mouth. What are the symptoms of COVID-19? Some people have no symptoms or mild symptoms. Symptoms may appear 2 to 14 days after contact with the virus. Symptoms can include: Fever Coughing Trouble breathing What are possible complications from COVID-19? In many cases, this virus can cause infection (pneumonia) in both lungs. In some cases, this can cause . How is COVID-19 diagnosed? Your healthcare provider will ask about your symptoms. He or she will also ask about your recent travel and contact with sick people. Testing for the virus is only done through the CDC. If yourhealthcare provider thinks you may have COVID- 19, he or she will work with your local health department and the CDC on testing. Follow all instructions from your healthcare provider. COVID-19 is diagnosed by: Nasal and throat swab. A cotton-tipped swab is wiped inside your nose or throat. This is done to check for viruses in your nasal mucus. Sputum culture. A small sample of mucus coughed from your lungs (sputum) is collected if you have a cough. It is checked for the virus. How is COVID-19 treated? There is currently no medicine to treat the virus. Treatment is done to help your body while it fights the virus. This is known as supportive care. Supportive care may include: Pain medicine. These include acetaminophen and ibuprofen. They are used to help ease pain and reduce fever. Bed rest. This helps your body fight the illness. For severe illness, you may need to stay in the hospital. Care during severe illness may include: IV (intravenous) fluids.These are given through a vein to help keep your body hydrated. Oxygen. Supplemental oxygen or ventilation with a breathing machine (ventilator) may be given. This is done to keep enough oxygen in your body. Are you at risk for COVID-19? If youve been to a place where people have been sick with this virus, you are at risk for infection. You are at risk if you: Recently traveled to an affected area Had contact with a sick person who recently traveled to this area Had contact with a person who was diagnosed with COVID-19 How can COVID-19 be prevented? There is no vaccine yet. The best prevention is to not have contact with the virus. The CDC advises that people should not travel to areas where there are COVID-19 outbreaks right now for any reason that is not urgent. To help prevent spreading the infection, wash your hands often, or use an alcohol-basedhand associate principal. If you are in an area with COVID-19: Wash your hands often. Or use an alcohol-based hand associate principal often. Only touch your eyes, nose, or mouth with clean hands. Dont have contact with people who are sick. Follow local instructions about being in public. For example, you may be told to not use public transport for a period of time. Stay away from markets that have live or animals. Wash your hands after touching any animals. Don't touch animals that may be sick. Dont share eating or drinking tools with sick people. Dont kiss someone who is sick. Clean surfaces often with disinfectant. If you were in an area with COVID-19 in the last 14 days: Call your healthcare provider. He or she can talk with local health staff to see what action may be needed. Follow all instructions from your provider. Take your temperature every morning and evening for at least 14 days. This is to check for fever. Keep a record of the readings. Keep watch for symptoms of the virus. Tell your provider right away if you have symptoms. If you were in an area with COVID-19 and have a fever or other symptoms: Dont panic. Keep in mind that other illnesses can cause similar symptoms. Stay away from work, school, and public places. Limit physical contact with family members. Don't kiss anyone or share eating or drinking utensils. Clean surfaces you touch with disinfectant. This is to help prevent the virus from spreading. Call your healthcare provider. Explain that you have been exposed to COVID-19 and have symptoms. Do this before going to any hospital. Wait for instructions. Keep in mind that healthcare staff may wear protective equipment such as masks, gowns, gloves, and eye protection. You may be put in a separate room. This is to prevent the possible virus from spreading. Tell the healthcare staff about recent travel. This includes local travel on public transport. Staff may need to find other people you have been in contact with. Follow all instructions the healthcare staff give you. If you have been diagnosed with COVID-19 Follow all instructions from your healthcare provider. Dont leave your home, except to get medical care. Call your healthcare providers office before going. They can prepare and give you instructions. This will help prevent the virus from spreading. Dont go to work, school, or public areas. Dont use public transport or taxis. Stay away from other people in your home. Have them wear face masks around you. Dont share household items or food. Wear a face mask if you can. This includes at home or in a medical facility. Cover your face with a tissue when you cough or sneeze. Throw the tissue away. Wash your hands. Wash your hands often. Caregivers should: Follow all instructions from healthcare staff. Wear a face mask and protective clothing as advised. Wash hands often. Keep track of the sick persons symptoms. Clean surfaces, fabrics, and laundry thoroughly. Keep other people away from the sick person. When to call your healthcare provider Call your healthcare provider: If youve recently traveled and have symptoms If you have been diagnosed with COVID-19 and your symptoms are worse To learn more To find out more about COVID-19, visit the CDC website at www.cdc.gov/coronavirus/2019-ncov/index.html. 9983-[address] [employer] [place] [address], [place] [address]. All rights reserved. This information is not intended as a substitute for professional medical care. Always follow your healthcare professional's instructions. This information has been adapted from [employer] Pending Studies at Discharge: No Stand-Alone Forms: [facility] [employer], Smoking Cessation Medications and DC Order Prescriptions: Continued carbidopa-levodopa 25-100 mg tablet 2 tab PO QID 90 Days Qty: 720 RF: 1 Restasis MultiDose 0.05 % drops 1 drops OP Q12H RF: 0 Xarelto 10 mg tablet 10 mg PO QPM RF: 0 (DME) lancets [OneTouch Delica Lancets] 33 gauge misc See Dose Instructions .ROUTE .MEDSUPPLY Qty: 100 RF: 0 insulin lispro [Humalog U-100 Insulin] 100 unit/mL solution 120 units SQ .COMPLEX Qty: 11 RF: 3 (DME) OneTouch Verio Strip See Dose Instructions .ROUTE .MEDSUPPLY RF: 0 aspirin [Aspirin Low Dose] 81 mg tablet,delayed release (DR/EC) 81 mg PO DAILY RF: 0 calcium carbonate-vitamin D3 [Calcium 500 + D] 500 mg(1,250mg) -200 unit tablet 1 tab PO DAILY RF: 0 atorvastatin 10 mg tablet 10 mg PO DAILY RF: 0 lorazepam 0.5 mg tablet 0.5 mg PO BID PRN (Reason: Anxiety) RF: 0 gabapentin 300 mg capsule See Rx Instructions .ROUTE .COMPLEX RF: 0 bumetanide 1 mg tablet See Rx Instructions .ROUTE .COMPLEX Qty: 30 RF: 0 Discharge Orders: Discharge Order (Routine); Ordered 10/13/19 Ordered By: Geoffrey Johnson/Other Patient Handouts: Diabetes Manage A1C Test Admission Data Admit Date/Time: 10/11/19 16:08 Attending Provider: Geoffrey Castro Admit Provider: Florentino Nava Primary Care Provider: Damaris Vega Other Providers: Florentino Nava ; Tulio Pang Other Interventions: Discharge Summary Assessment (RN) Last Done: 10/13/19 15:52 DC Date/Time DO NOT enter until pt leaves facility: 10/13/19 16:47 Coding Level of Care Code 34782 OBS Care - Discharge Diagnoses Falls W19.XXXA Parkinson disease G20 Diabetes type 2, uncontrolled E11.65 CHF (congestive heart failure) I50.9 Hypertension I10 Atrial fibrillation I48.91
== END 2019-10-13 16:47 | disposition home health service (06) ==
LOC: 2N 13:11 → ED 13:11 → SUATTDRO 16:08 → 2N 17:24

== ENCOUNTER 2019-11-08 13:09 | Observation (INO) ==
[2019-11-08] MEDS ORDERED: CEFEPIME 2,000 MG/20 ML VIAL IV STA (13:29)
[2019-11-08] MEDS ORDERED: SODIUM CHLORIDE 0.9% 500 ML IV ONE (13:29)
--- NOTE | 2019-11-08 13:37 | Emergency Department Note ---
Impression & Plan Weakness, Acute dehydration, Cellulitis, Failure of outpatient treatment ED Provider Note NAME: BARRINGTON VIVEROS AGE: 74 SEX: F : 1945 ARRIVES VIA: Ambulance INFORMANT: [Patient][nurses, ems] ED PROVIDER(S): [Keith Maloney MD] CHIEF COMPLAINT: Weakness, chest pain HISTORY OF PRESENT ILLNESS: The patient is a 74-year-old female presents to the ER with a week, maybe 2 weeks of symptoms in total. She has noticed increasing weakness and difficulty in getting around. She has been more shaky. She saw her doctor's office yesterday and was prescribed an oral antibiotic for a right leg cellulitis. For the last week, her niece has been at the house to try to help her get around and aid her with daily activities. She was actually scheduled to go into [facility], rehab, today however, when she spoke to the [facility] representatives, they felt she was too sick to be at their facility. The patient has had chills, no fever. She has felt short of breath especially at night laying down. She felt her heart race at times and she describes some moderate chest discomfort that kind of waxes and wanes. The chest pain has been present since yesterday evening. Nothing makes the chest pain better or worse. On the way here, EMS gave her 3 nitroglycerin and 4 baby aspirin, she has had no change in her chest discomfort. The chest pain does not radiate. There has been some diarrhea the last few days, some nausea but no vomiting. She has no urinary complaints. No known coronavirus exposures. REVIEW OF SYSTEMS: See HPI for pertinent positives and negatives. A total of ten systems were reviewed and were otherwise negative. PMHx/PSHx: See Below SOCIAL HISTORY: See Below. PHYSICAL EXAM: GENERAL: Patient is in no acute distress. HEENT: No acute trauma, normocephalic atraumatic, mucous membranes moist, no nasal congestion, no scleral icterus. NECK: No stridor, no adenopathy, no meningismus, trachea is midline. LUNGS: Clear to auscultation bilaterally, no wheeze, no rhonchi, breath sounds equal. HEART: Subtle systolic murmur, somewhat irregular rhythm, normal rate. ABDOMEN: Soft, nontender, bowel sounds positive, no hernias, no peritonitis. EXTREMITIES: No cyanosis, she does have some mild bilateral pedal edema, somewhat worse than the right. The right lower extremity has some leaking blisters to the midportion of the leg anteriorly. The fluid seems clear. There is some warmth in this area with some surrounding erythema. There are some erythematous healing lesions to the right anterior knee. NEUROLOGIC: Oriented x 3, no acute motor or sensory deficits, no focal weakness. SKIN: No jaundice, no diaphoresis. DIFFERENTIAL DIAGNOSIS: Sepsis, UTI, pneumonia, cellulitis, failed outpatient treatment, VT, dysrhythmia, CHF, bronchitis, metabolic, electrolyte abnormalities, cardiac sources, intracerebral event, toxicologic, neurologic, as well as other pathologies. EMERGENCY DEPARTMENT COURSE/PROCEDURES: ECG: Indication was weakness. The EKG shows atrial fibrillation with a rate of 87. There was some diffuse nonspecific ST change. No ST elevation, no PVCs. The QTc was 454. Continuous Cardiac Monitoring: An order was placed for continuous cardiac monitoring. The monitor shows a rate of 88 with atrial fibrillation. MEDICAL DECISION MAKING: There is no leukocytosis or concerning anemia. INR is slightly elevated, likely consistent with her Xarelto use. There is no significant electrolyte abnormalit y or kidney failure. Lactic acid level is not elevated making severe sepsis less likely. No worrisome liver enzyme elevation. EKG shows atrial fibrillation, no acute ischemia. Cardiac enzyme testing x1 is not consistent with acute cardiac injury. Urinalysis does not show any obvious infection, contamination was seen. Chest film does not show pneumonia or CHF, there was no free air. On exam, the patient was not toxic or febrile. She complained of weakness and shakiness. She had leg cramps. There was some right leg edema with some fluid leaking from the right lower extremity, she appeared to have a right lower extremity cellulitis. Patient received IV Tylenol for pain, she was given IV cefepime as empiric antibiotic coverage. She received a total of 1 L of IV saline. Patient has had increasing weakness. She has had leg cramps. She does have a right leg cellulitis which was diagnosed yesterday by her doctors office. She is already on antibiotics. She presents to this ED feeling weaker and worse than yesterday. [facility] felt she was too ill to be at their facility for strengthening. The patient is in need of a hospital stay. I think the weakness is multifactorial. I suspect that she is dehydrated. I believe that she is somewhat debilitated from her Parkinson's. The right leg cellulitis is certainly contributing to her weakness. I spoke to the patient and transplant case manager. The on-call hospitalist has been consulted. Past Med/Surg History Medical History Anxiety CHF (congestive heart failure) Diabetes (Acute) GERD (gastroesophageal reflux disease) History of TIA (transient ischemic attack) Hypertension Mitral valve disorder Obesity Parkinson disease Permanent atrial fibrillation Surgical History H/O breast biopsy History of eye surgery Knee joint replacement status (Resolved) S/P appendectomy (Resolved) S/P cholecystectomy (Resolved) Family History Mother Colorectal cancer Congestive heart failure Diabetes Hypertension Brother Colorectal cancer Congestive heart failure Sister Cancer Unknown Pancreatic cancer Social History Preferred Language: German Communication Ability: Effective Civil Structural Designer Required: No Beliefs That Will Affect Care: None marital status: Current Living Situation: Alone Feels Safe at Home: Yes Safety Concerns: Feels Safe At This Time Smoking Status: Never smoker Second Hand Exposure: No ; Hx Alcohol Use: No Hx Substance Use: No Allergies Allergies Allergy/AdvReac Type Severity Reaction Status Date / Time benztropine Allergy Unknown UNKNOWN Verified 11/08/19 14:04 citalopram Allergy Unknown UNKNOWN Verified 11/08/19 14:04 simvastatin Allergy Unknown UNK Verified 11/08/19 14:04 sulindac Allergy Unknown UNKNOWN Verified 11/08/19 14:04 doxycycline AdvReac Mild NAUSEA Verified 11/08/19 14:04 minocycline AdvReac Mild NAUSEA Verified 11/08/19 14:04 Home Meds Home Medications Medication Instructions Recorded Confirmed aspirin 81 mg tablet,delayed 81 mg PO DAILY tab 01/19/19 11/08/19 release atorvastatin 10 mg tablet 10 mg PO DAILY tab 01/19/19 11/08/19 calcium carbonate 500 mg (1,250 1 tab PO DAILY tab 01/19/19 11/08/19 mg)-vitamin D3 200 unit tablet cyclosporine 0.05 % eye drops 1 drops OP Q12H 01/19/19 11/08/19 gabapentin 300 mg capsule See Rx Instructions .ROUTE 01/19/19 11/08/19 .COMPLEX cap blood sugar diagnostic ea 07/19/19 07/19/19 lancets 33 gauge #100 ea 07/19/19 07/19/19 escitalopram oxalate 10 mg PO DAILY 11/08/19 11/08/19 insulin lispro [Humalog U-100 0 units SQ UD 11/08/19 11/08/19 Insulin] lorazepam 0.5 mg PO BID PRN 11/08/19 11/08/19 rivaroxaban [Xarelto] 20 mg PO DAILY 11/08/19 11/08/19 sulfamethoxazole-trimethoprim 1 tab PO BID 11/08/19 11/08/19 Previous Rx's Medication Instructions Recorded bumetanide See Rx Instructions .ROUTE 08/31/19 .COMPLEX #30 tab Results & Data (ED) Vital Signs Vital Signs - 24 hr 11/08/19 13:14 11/08/19 13:21 11/08/19 14:07 Temperature 36.5 C Temperature Source Oral Pulse Rate 87 90 89 Pulse Rate from SpO2 Sensor 85 86 Pulse Rhythm Irregular Respiratory Rate 18 14 17 Respiratory Effort / Characteristics Non-Labored Spontaneous Respiratory Depth Normal Respiratory Pattern Regular Blood Pressure 131/61 131/61 142/62 H Blood Pressure Mean 84 72 82 Blood Pressure Position Lying Pulse Oximetry 95 96 97 Oxygen Delivery Method Room Air Sepsis Recent Fever Within 48 Hours No Sepsis New/Unexplained Change in Mental Status No Sepsis Action Taken by Nursing No Action Required 11/08/19 14:11 11/08/19 15:00 11/08/19 15:30 Temperature Temperature Source Pulse Rate 75 88 Pulse Rate from SpO2 Sensor Pulse Rhythm Respiratory Rate 16 21 Respiratory Effort / Characteristics Respiratory Depth Respiratory Pattern Blood Pressure 129/59 L 138/61 Blood Pressure Mean 70 80 Blood Pressure Position Pulse Oximetry 97 97 100 Oxygen Delivery Method Room Air Room Air Room Air Sepsis Recent Fever Within 48 Hours Sepsis New/Unexplained Change in Mental Status Sepsis Action Taken by Nursing 11/08/19 16:00 11/08/19 16:30 11/08/19 17:00 Temperature Temperature Source Pulse Rate 85 80 88 Pulse Rate from SpO2 Sensor Pulse Rhythm Respiratory Rate 22 16 16 Respiratory Effort / Characteristics Respiratory Depth Respiratory Pattern Blood Pressure 151/60 H 136/58 L 143/73 H Blood Pressure Mean 82 104 98 Blood Pressure Position Pulse Oximetry 93 93 91 Oxygen Delivery Method Sepsis Recent Fever Within 48 Hours Sepsis New/Unexplained Change in Mental Status Sepsis Action Taken by Nursing 11/08/19 17:30 Temperature Temperature Source Pulse Rate 79 Pulse Rate from SpO2 Sensor Pulse Rhythm Respiratory Rate 16 Respiratory Effort / Characteristics Respiratory Depth Respiratory Pattern Blood Pressure 132/65 Blood Pressure Mean 95 Blood Pressure Position Pulse Oximetry 93 Oxygen Delivery Method Room Air Sepsis Recent Fever Within 48 Hours Sepsis New/Unexplained Change in Mental Status Sepsis Action Taken by Correction Medications Current Medication List: was personally reviewed by me Laboratory Data Attestation: I reviewed the patient's lab results. Result diagrams: 11/08/19 14:00 11/08/19 14:00 Lab Results 11/08/19 11/08/19 11/08/19 Range/Units 13:58 14:00 14:00 WBC 6.91 (4.8-10.8) K/uL RBC 4.67 (4.2-5.4) M/uL Hgb 13.4 (12.0-16.0) g/dL Hct 40.3 (37-47) % MCV 86.3 (80-100) fL MCH 28.7 (25-34) pg MCHC 33.3 (32-36) g/dL RDW Std Deviation 46.6 H (36.4-46.3) fL RDW Coeff of Vicky 14.8 H (11.5-14.5) % Plt Count 258 (130-400) K/uL MPV 10.4 (7.4-10.4) fL Immature Gran % (Auto) 0.4 % Neut % (Auto) 69.8 % Lymph % (Auto) 19.8 % Benton % (Auto) 8.5 % Eos % (Auto) 1.4 % Baso % (Auto) 0.1 % Immature Gran # (Auto) 0.03 H (0.00-0.02) K/uL Neut # (Auto) 4.81 (1.4-6.5) K/uL Lymph # (Auto) 1.37 (1.2-3.4) K/uL Benton # (Auto) 0.59 (0.11-0.59) K/uL Eos # (Auto) 0.10 (0-0.5) K/uL Baso # (Auto) 0.01 (0-0.2) K/uL PT 12.6 H (9.0-12.0) Seconds INR 1.2 H (0.9-1.1) APTT 33.0 H (21.0-31.0) Seconds PTT Ratio 1.2 Sodium (136-145) mmol/L Potassium (3.5-5.1) mmol/L Chloride (98-107) mmol/L Carbon Dioxide (21-32) mmol/L Anion Gap (3-11) BUN (7-18) mg/dl Creatinine (0.6-1.2) mg/dl Est Cr Clr Drug Dosing ml/min Est GFR ( Amer) Est GFR (Non-Af Amer) BUN/Creatinine Ratio (10-20) Glucose (70-99) mg/dl Lactate 1.5 (0.4-2.0) mmol/L Calcium (8.5-10.1) mg/dl Magnesium (1.8-2.4) mg/dl Total Bilirubin (0.2-1) mg/dl AST (15-37) U/L ALT (12-78) U/L Alkaline Phosphatase (45-117) U/L Troponin I (0-0.045) ng/ml Total Protein (6.4-8.2) gm/dl Albumin (3.4-5.0) gm/dl Globulin (2.5-4.0) gm/dl Albumin/Globulin Ratio (0.9-2) Procalcitonin (0-0.5) ng/ml Urine Color Urine Appearance (Clear) Urine pH (4.5-7.5) Ur Specific Keller (1.000-1.030) Urine Protein (Negative) Urine Glucose (UA) (Negative) Urine Ketones (Negative) Urine Blood (Negative) Urine Nitrite (Negative) Urine Bilirubin (Negative) Urine Urobilinogen (Negative) Ur Leukocyte Esterase (Negative) Urine WBC (Auto) (0-5) /hpf Urine RBC (Auto) (0-4) /hpf U Hyaline Cast (Auto) (0-5) /lpf U Epithel Cells (Auto) (0-5) /lpf Urine Bacteria (Auto) (Negative) 11/08/19 11/08/19 11/08/19 Range/Units 14:00 14:00 14:00 WBC (4.8-10.8) K/uL RBC (4.2-5.4) M/uL Hgb (12.0-16.0) g/dL Hct (37-47) % MCV (80-100) fL MCH (25-34) pg MCHC (32-36) g/dL RDW Std Deviation (36.4-46.3) fL RDW Coeff of Vicky (11.5-14.5) % Plt Count (130-400) K/uL MPV (7.4-10.4) fL Immature Gran % (Auto) % Neut % (Auto) % Lymph % (Auto) % Benton % (Auto) % Eos % (Auto) % Baso % (Auto) % Immature Gran # (Auto) (0.00-0.02) K/uL Neut # (Auto) (1.4-6.5) K/uL Lymph # (Auto) (1.2-3.4) K/uL Benton # (Auto) (0.11-0.59) K/uL Eos # (Auto) (0-0.5) K/uL Baso # (Auto) (0-0.2) K/uL PT (9.0-12.0) Seconds INR (0.9-1.1) APTT (21.0-31.0) Seconds PTT Ratio Sodium 140 (136-145) mmol/L Potassium 3.7 (3.5-5.1) mmol/L Chloride 104 (98-107) mmol/L Carbon Dioxide 27 (21-32) mmol/L Anion Gap 9.0 (3-11) BUN 16 (7-18) mg/dl Creatinine 0.87 (0.6-1.2) mg/dl Est Cr Clr Drug Dosing 65.8 ml/min Est GFR ( Amer) 76.6 Est GFR (Non-Af Amer) 66.1 BUN/Creatinine Ratio 18.5 (10-20) Glucose 99 (70-99) mg/dl Lactate (0.4-2.0) mmol/L Calcium 8.7 (8.5-10.1) mg/dl Magnesium 2.3 (1.8-2.4) mg/dl Total Bilirubin 1.2 H (0.2-1) mg/dl AST 25 (15-37) U/L ALT 16 (12-78) U/L Alkaline Phosphatase 81 (45-117) U/L Troponin I < 0.015 (0-0.045) ng/ml Total Protein 6.9 (6.4-8.2) gm/dl Albumin 3.5 (3.4-5.0) gm/dl Globulin 3.4 (2.5-4.0) gm/dl Albumin/Globulin Ratio 1.0 (0.9-2) Procalcitonin < 0.05 (0-0.5) ng/ml Urine Color Dark Yellow Urine Appearance Clear (Clear) Urine pH 5.0 (4.5-7.5) Ur Specific Keller 1.034 H (1.000-1.030) Urine Protein 1+ H (Negative) Urine Glucose (UA) Trace H (Negative) Urine Ketones Trace H (Negative) Urine Blood 1+ H (Negative) Urine Nitrite Negative (Negative) Urine Bilirubin Negative (Negative) Urine Urobilinogen Negative (Negative) Ur Leukocyte Esterase Negative (Negative) Urine WBC (Auto) 1-5 (0-5) /hpf Urine RBC (Auto) 10-30 H (0-4) /hpf U Hyaline Cast (Auto) 5-10 H (0-5) /lpf U Epithel Cells (Auto) >30 H (0-5) /lpf Urine Bacteria (Auto) Negative (Negative) Administered Medications Discontinued Medications Al Hydrox/Mg Hydrox/Simethicone () Confirm Administered Dose 1 dose PO .STK-MED ONE Stop: 11/08/19 17:33 Last Admin: 11/08/19 17:34 Dose: Not Given Documented by: [id number] Al Hydrox/Mg Hydrox/Simethicone 18 ml/ Lidocaine HCl 6 ml/ BARCODE IDENTIFIER 1 ea 0 ml PO ONE ONE Stop: 11/08/19 16:40 Last Admin: 11/08/19 17:34 Dose: 6 ml Documented by: [id number] Sodium Chloride (Nss) 500 mls @ 999 mls/hr IV .Q31M ONE Stop: 11/08/19 13:59 Last Infusion: 11/08/19 14:39 Dose: 0 mls/hr Documented by: [id number] Admin: 11/08/19 14:08 Dose: 999 mls/hr Documented by: [id number] Cefepime HCl (Maxipime) 2,000 mg in 20 mls @ 5 mls/min IV NOW STA; Protocol Stop: 11/08/19 13:32 Last Admin: 11/08/19 14:08 Dose: 5 mls/min Documented by: [id number] Acetaminophen (Ofirmev) 1,000 mg in 100 mls @ 400 mls/hr IV NOW STA Stop: 11/08/19 16:02 Last Infusion: 11/08/19 16:20 Dose: 0 mls/hr Documented by: [id number] Admin: 11/08/19 16:03 Dose: 400 mls/hr Documented by: [id number] Sodium Chloride (Nss 1000ml) 500 mls @ 999 mls/hr IV .Q31M ONE Stop: 11/08/19 16:28 Last Infusion: 11/08/19 17:03 Dose: 0 mls/hr Documented by: [id number] Admin: 11/08/19 16:20 Dose: 999 mls/hr Documented by: [id number] Imaging Data Radiologist's Impression: XR chest 1V portable HISTORY: SEPSIS COMPARISON: Chest 10/11/2019. FINDINGS: The heart remains mildly enlarged. No pleural effusions. No pneumothorax. Slight prominence of interstitial markings, unchanged. No evidence for pulmonary edema. Slightly rotated study. No new focal lung consolidations to suggest pneumonia. IMPRESSION: Stable mild cardiomegaly. Otherwise, no acute process within the chest. Blood Pressure Blood Pressure Findings: Elevated blood pressure Blood Pressure Disposition: further management by hospitalist Discharge Plan Visit Data Chief Complaint: Cardiac Assessment Stated Complaint: chest discomfort ED Provider: Keith Maloney Discharge Problem: Weakness, Acute dehydration, Cellulitis, Failure of outpatient treatment Patient Disposition: Being Evaluated by Hospitalist Condition: Fair Forms Stand Alone Forms: My [facility] Prescriptions Prescriptions: No Action Restasis MultiDose 0.05 % drops 1 drops OP Q12H RF: 0 (DME) lancets [OneTouch Delica Lancets] 33 gauge misc See Dose Instructions .ROUTE .MEDSUPPLY Qty: 100 RF: 0 (DME) OneTouch Verio test strips Strip See Dose Instructions .ROUTE .MEDSUPPLY RF: 0 aspirin [Aspirin Low Dose] 81 mg tablet,delayed release (DR/EC) 81 mg PO DAILY RF: 0 calcium carbonate-vitamin D3 [Calcium 500 + D] 500 mg(1,250mg) -200 unit tablet 1 tab PO DAILY RF: 0 atorvastatin 10 mg tablet 10 mg PO DAILY RF: 0 gabapentin 300 mg capsule See Rx Instructions .ROUTE .COMPLEX RF: 0 bumetanide 1 mg tablet See Rx Instructions .ROUTE .COMPLEX Qty: 30 RF: 0 sulfamethoxazole-trimethoprim 800-160 mg tablet 1 tab PO BID RF: 0 lorazepam 0.5 mg tablet 0.5 mg PO BID PRN (Reason: Anxiety) RF: 0 escitalopram oxalate 10 mg tablet 10 mg PO DAILY RF: 0 Xarelto 20 mg tablet 20 mg PO DAILY RF: 0 insulin lispro [Humalog U-100 Insulin] 100 unit/mL solution 0 units SQ UD RF: 0 Referrals Referrals: Damaris Vega MD [Primary Care Provider] - Discharge Problem: Cellulitis Qualifiers: Site of cellulitis: extremity Site of cellulitis of extremity: lower extremity Laterality: right Qualified Code(s): L03.115 - Cellulitis of right lower limb
--- NOTE | 2019-11-08 14:00 | XRay Report ---
XR chest 1V portable HISTORY: SEPSIS COMPARISON: Chest 10/11/2019. FINDINGS: The heart remains mildly enlarged. No pleural effusions. No pneumothorax. Slight prominence of interstitial markings, unchanged. No evidence for pulmonary edema. Slightly rotated study. No new focal lung consolidations to suggest pneumonia. IMPRESSION: Stable mild cardiomegaly. Otherwise, no acute process within the chest. ACT 112: Negative or not required by law. Electronically signed by: Cali Reilly M.D. 11/08/2019 1:59 PM
[2019-11-08 14:20] LABS: Basophils # (auto) 0.01 K/uL (0-0.2); Basophils % (auto) 0.1 %; Eosinophils % (auto) 1.4 %; Hematocrit (blood only) 40.3 % (37-47); Hemoglobin 13.4 g/dL (12.0-16.0); Immature Granulocytes # (auto) 0.03 K/uL (0.00-0.02); Immature Granulocytes % (auto) 0.4 %; Lymphocytes # (auto) 1.37 K/uL (1.2-3.4); Lymphocytes % (auto) 19.8 %; Mean Corpuscular Hemoglobin 28.7 pg (25-34); Mean Corpuscular Hgb Conc 33.3 g/dL (32-36); Mean Corpuscular Volume 86.3 fL (80-100); Mean Platelet Volume 10.4 fL (7.4-10.4); Monocytes # (auto) 0.59 K/uL (0.11-0.59); Monocytes % (auto) 8.5 %; Neutrophils # (auto) 4.81 K/uL (1.4-6.5); Neutrophils % (auto) 69.8 %; Platelet Count 258 K/uL (130-400); RDW Coefficient of Variation 14.8 % (11.5-14.5); RDW Standard Deviation 46.6 fL (36.4-46.3); Red Blood Count 4.67 M/uL (4.2-5.4); White Blood Count 6.91 K/uL (4.8-10.8)
[2019-11-08 14:30] LABS: Appearance Urine Clear (Clear); Bacteria Urine Automated Negative (Negative); Blood Urine 1+ (Negative); Color Urine Dark Yellow; Epithelial Cell Urine Auto >30 /lpf (0-5); Glucose Urine UA Trace (Negative); Ketones Urine Trace (Negative); Leukocyte Esterase Urine Negative (Negative); Nitrite Urine Negative (Negative); Protein Urine 1+ (Negative); Specific Gravity Urine 1.034 (1.000-1.030); Urobilinogen Urine Negative (Negative)
[2019-11-08 14:34] LABS: Bilirubin Urine Negative (Negative); Ictotest Urine Negative (Negative)
[2019-11-08 14:35] LABS: Alanine Aminotransferase 16 U/L (12-78); Albumin Level 3.5 gm/dl (3.4-5.0); Aspartate Aminotransferase 25 U/L (15-37); BUN Creatinine Ratio 18.5 (10-20); Blood Urea Nitrogen 16 mg/dl (7-18); Calcium 8.7 mg/dl (8.5-10.1); Carbon Dioxide 27 mmol/L (21-32); Chloride 104 mmol/L (98-107); Creatinine Clr Calc Pharmacy 65.8 ml/min; Est GFR (African American) 76.6; Est GFR (Non-African American) 66.1; Glucose 99 mg/dl (70-99); Magnesium 2.3 mg/dl (1.8-2.4); Potassium 3.7 mmol/L (3.5-5.1); Sodium 140 mmol/L (136-145)
[2019-11-08 14:36] LABS: INR 1.2 (0.9-1.1); Partial Thromboplastin Ratio 1.2; Prothrombin Time 12.6 Seconds (9.0-12.0)
[2019-11-08 14:39] LABS: Alkaline Phosphatase 81 U/L (45-117); Bilirubin,Total 1.2 mg/dl (0.2-1); Globulin 3.4 gm/dl (2.5-4.0); Total Protein 6.9 gm/dl (6.4-8.2); Troponin I < 0.015 ng/ml (0-0.045)
[2019-11-08] MEDS ORDERED: ACETAMINOPHEN 1,000 MG/100 ML VIAL IV STA (15:48)
[2019-11-08] MEDS ORDERED: SODIUM CHLORIDE 0.9% 1000ML 500 ML IV ONE (15:58)
--- NOTE | 2019-11-08 16:21 | Electrocardiogram Report ---
Test Reason : Blood Pressure : / mmHG Vent. Rate : 087 BPM Atrial Rate : 163 BPM P-R Int : 000 ms QRS Dur : 084 ms QT Int : 378 ms P-R-T Axes : 000 -46 011 degrees QTc Int : 454 ms Atrial fibrillation Left anterior fascicular block Nonspecific T wave abnormality Abnormal ECG When compared with ECG of 11-OCT-2019 13:17, T wave inversion now evident in Lateral leads Confirmed by Tarun Briones ([id number]) on 11/08/2019 4:20:45 PM Referred By: Confirmed By:Nicho Briones
[2019-11-08] MEDS ORDERED: ALUMINUM/MAGNESIUM SUSP 18 ML, LIDOCAINE HCL VISCOUS 2% 6 ML, BARCODE IDENTIFIER 1 EA PO ONE (16:39)
--- NOTE | 2019-11-08 16:53 | History & Physical Report ---
Date of Service November 08, 2019 Assessment & Plan (1) Cellulitis: Started on Bactrim 11/06 as outpt, however continued to feel worse Started on cefepime in ED, will continue Blood cx pending WCC c/s pending (2) Weakness: With recent falls Recent d/c on 10/12 for falls, refused rehab at that time but did have HHN initially Has not done well at home PT/OT pending CBC, PRP, trop WNL CXR neg for PNA Likely multifactorial in the setting of cellulitis and Parkinson's, possibly worsening Parkinson's overall Requesting rehab on d/c (3) Chest pain: Seems more likely related to reflux given epigastric and throat burning Trop neg x1, serials pending EKG neg for acute Tele monitor Takes aspirin 81mg at baseline, continue (4) Cramps of lower extremity: Possibly related to mild dehydration in the setting of Parkinson's Warm compresses, gentle IVF IV tylenol in the ED Electrolytes are WNL (5) Atrial fibrillation: At baseline continue home meds, xarelto (6) Hypertension: continue home meds (7) Parkinson disease: continue home meds (8) Anxiety: continue home meds (9) DM (diabetes mellitus), type 2, uncontrolled w/neurologic complication: Holding home insulin SSI PRN A1c 8.6 on 10/11, will not repeat (10) Diabetic peripheral neuropathy: continue home meds Warm compresses for LE cramping (11) Dyslipidemia: continue home meds (12) GERD (gastroesophageal reflux disease): States hx of medication use, but stopped after a prior admission last November No issues since Sx c/w prior sx GI cocktail, may need t/c addition of PPI if ongoing issue (13) CHF (congestive heart failure): continue home meds Stable at present Monitor with gentle IVF (14) DVT prophylaxis: Xarelto as at home History of Present Illness Primary Care Provider: Damaris Vega MD 74 y/o F with multiple medical complaints. Pt was d/c'd from [facility] on 10/12. She was recommended for rehab at that time, but per notes, she declined. She went home with HHN instead. Pt states that she has become progressively more weak over the last few weeks. She generally lives alone, however her family has had to move in to help as she cannot manage for herself. She cannot even get out of a chair on her own. It was noted that she had a red and swollen R LE and she was seen by PCP yesterday. She was started on bactrim. She does not think her LE has improved today. Pt states that prior to starting abx, she felt like her "belly was on fire, my throat too". She states hx of GERD, but her medication for this was stopped after an admission last November. She has not had issues with GERD recently, but she states that this feels like her prior GERD. She has had nausea without emesis today. She had diarrhea x1 yesterday. She has some chest pain, but she cannot say if this is similar to the burning in her abd or if it is different. It is substernal only. Pt started having intense b/l LE cramping today. She states that she gets LE cramping often, but not this intense. She states she generally walks around to resolve this, but cannot walk with her current weakness. She states she has been SOB with lying flat. Pt states she did fall, but this was a few weeks ago. She states she was in the bathroom. EMS or police came to help her, but she was fine after and did not require ED eval. She states she did not eat anything today, but ate without issue yesterday. She is hungry now. Pt denies fever. Allergies Allergy/AdvReac Type Severity Reaction Status Date / Time benztropine Allergy Unknown UNKNOWN Verified 11/08/19 14:04 citalopram Allergy Unknown UNKNOWN Verified 11/08/19 14:04 simvastatin Allergy Unknown UNK Verified 11/08/19 14:04 sulindac Allergy Unknown UNKNOWN Verified 11/08/19 14:04 doxycycline AdvReac Mild NAUSEA Verified 11/08/19 14:04 minocycline AdvReac Mild NAUSEA Verified 11/08/19 14:04 Home Medications Home Medications Medication Instructions Recorded Confirmed Type aspirin 81 mg tablet,delayed 81 mg PO DAILY tab 01/19/19 11/08/19 History release atorvastatin 10 mg tablet 10 mg PO DAILY tab 01/19/19 11/08/19 History calcium carbonate 500 mg (1,250 1 tab PO DAILY tab 01/19/19 11/08/19 History mg)-vitamin D3 200 unit tablet cyclosporine 0.05 % eye drops 1 drops OP Q12H 01/19/19 11/08/19 History gabapentin 300 mg capsule See Rx Instructions .ROUTE 01/19/19 11/08/19 History .COMPLEX cap blood sugar diagnostic ea 07/19/19 07/19/19 History lancets 33 gauge #100 ea 07/19/19 07/19/19 History bumetanide See Rx Instructions .ROUTE 08/31/19 11/08/19 Rx .COMPLEX #30 tab escitalopram oxalate 10 mg PO DAILY 11/08/19 11/08/19 History insulin lispro [Humalog U-100 0 units SQ UD 11/08/19 11/08/19 History Insulin] lorazepam 0.5 mg PO BID PRN 11/08/19 11/08/19 History rivaroxaban [Xarelto] 20 mg PO DAILY 11/08/19 11/08/19 History sulfamethoxazole-trimethoprim 1 tab PO BID 11/08/19 11/08/19 History Past Med/Surg History Medical History Anxiety CHF (congestive heart failure) Diabetes (Acute) GERD (gastroesophageal reflux disease) History of TIA (transient ischemic attack) Hypertension Mitral valve disorder Obesity Parkinson disease Permanent atrial fibrillation Surgical History H/O breast biopsy History of eye surgery Knee joint replacement status (Resolved) S/P appendectomy (Resolved) S/P cholecystectomy (Resolved) Family History Mother Colorectal cancer Congestive heart failure Diabetes Hypertension Brother Colorectal cancer Congestive heart failure Sister Cancer Unknown Pancreatic cancer Social History Preferred Language: Sinhala Communication Ability: Effective 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 Beliefs That Will Affect Care: None marital status: Current Living Situation: Alone Feels Safe at Home: Yes Smoking Status: Never smoker Second Hand Exposure: No ; Hx Alcohol Use: No Hx Substance Use: No Review of Systems Review of Systems: Pertinent positives and negatives reviewed in HPI--all others negative Physical Exam Constitutional: WD/WN, vitals as above + ill appearing Eyes: normal visual godoy by confrontation and + anicteric sclerae Neck: normal visual inspection and trachea midline Respiratory: normal respiratory effort, lungs clear to auscultation Cardiovascular: Rate/Rhythm: regular rate and regular rhythm Gastrointestinal (Abdomen): Inspection/Auscultation: abdomen not distended Percussion/Palpation: + abdomen tender (epigastric) and abdomen soft Musculoskeletal: Head/Neck/Chest: normocephalic and head atraumatic R>L LE edema, peripheral pulses intact Skin: R LE with redness, I dimitrios lines around this Neurologic: awake; not confused Speech / Cognition: normal speech Psychiatric: Orientation: oriented x 3 Affect: + tearful affect Results & Data Results & Data ([facility]) Vital Signs (Past 12 Hours) Vital Signs Temp Pulse Resp BP Pulse Ox 11/08/19 16:30 80 16 136/58 L 93 11/08/19 16:00 85 22 151/60 H 93 11/08/19 15:30 88 21 138/61 100 11/08/19 15:00 75 16 129/59 L 97 11/08/19 14:11 97 11/08/19 14:07 89 17 142/62 H 97 11/08/19 13:21 90 14 131/61 96 11/08/19 13:14 36.5 C 87 18 131/61 95 Diagnostic Findings CXR: neg for acute ECG Rhythm: atrial fibrillation Code Status & VTE Plan Code Status Full code, although pt states no prolonged mechanical life support, feeding tubes, etc VTE Prophylaxis Plan VTE Prophylaxis will be ordered: Yes PG Care Time/CCT Total # of Minutes Spent Total Time Spent with Patient: Total time spent is greater than 50% in coordination of care (as documented) at patient's floor/unit and/or counseling patient: Coding Level of Care Code 31173 Initial Inpt Care Lvl 3 Diagnoses Cellulitis L03.115 Laterality: right Site of cellulitis: extremity Site of cellulitis of extremity: lower extremity Weakness R53.1 Chest pain R07.9 Cramps of lower extremity R25.2 Atrial fibrillation I48.91 Hypertension I10 Parkinson disease G20 Anxiety F41.9 DM (diabetes mellitus), type 2, uncontrolled w/neurologic complication E11.49; E11.65 Diabetic peripheral neuropathy E11.42 Dyslipidemia E78.5 GERD (gastroesophageal reflux disease) K21.9 CHF (congestive heart failure) I50.9 DVT prophylaxis Z29.9 (1) Cellulitis Laterality: right Site of cellulitis: extremity Site of cellulitis of extremity: lower extremity Qualified Code(s): L03.115 - Cellulitis of right lower limb
[2019-11-08] MEDS ORDERED: GI COCKTAIL ED USE PO ONE (17:32)
[2019-11-08] MEDS ORDERED: BUMETANIDE 1 MG TAB PO PRN (19:55)
[2019-11-08] MEDS ORDERED: ONDANSETRON INJ 2 MG/ML 2 ML VIAL IV PRN (19:55)
[2019-11-08] MEDS ORDERED: DEXTROSE 50% 50 ML SYRINGE IV PRN (19:55)
[2019-11-08] MEDS ORDERED: CARBOHYDRATES FOR HYPOGLYCEMIA PO PRN (19:55)
[2019-11-08] MEDS ORDERED: GLUCOSE 40% GEL 15 GM TUBE PO PRN (19:55)
[2019-11-08] MEDS ORDERED: GLUCOSE 10 TABS/TUBE PO PRN (19:55)
[2019-11-08] MEDS ORDERED: MAGNESIUM HYDROXIDE SUSP 30 ML UDC PO PRN (19:55)
[2019-11-08] MEDS ORDERED: CYCLOSPORINE OP SCH (19:55)
[2019-11-08] MEDS ORDERED: LORazepam 0.5 MG TAB PO PRN (19:55)
[2019-11-08] MEDS ORDERED: ACETAMINOPHEN 325 MG TAB PO PRN (19:55)
[2019-11-08] MEDS ORDERED: GLUCAGON FOR INJ 1 MG VIAL SQ PRN (19:55)
[2019-11-08] MEDS: NSS + 20MEQ KCL 20 MEQ/1,000 ML BAG IV SCH (21:27)
[2019-11-08] MEDS: INSULIN ASPART 100 UNITS/ML 3 ML PEN SC SCH (21:27)
[2019-11-08] MEDS: GABAPENTIN 300 MG CAP PO SCH (21:29)
[2019-11-08] MEDS: CYCLOSPORINE EYE SCH (23:32)
[2019-11-09] MEDS ORDERED: CARBIDOPA/LEVODOPA 25/100MG TAB PO STA (01:37)
[2019-11-09] MEDS: CEFEPIME 2,000 MG in SYRINGE 7.5 ML IV SCH ×2 (02:02→13:48)
[2019-11-09] MEDS ORDERED: FAMOTIDINE 20 MG TAB PO STA (02:51)
[2019-11-09] MEDS: CALCIUM 600MG + VIT D 400 IU TAB PO SCH (08:14)
[2019-11-09] MEDS: ASPIRIN 81 MG ECTAB PO SCH (08:14)
[2019-11-09] MEDS: CYCLOSPORINE EYE SCH ×2 (08:14→15:17)
[2019-11-09] MEDS: ATORVASTATIN 10 MG TAB PO SCH (08:15)
[2019-11-09] MEDS: ESCITALOPRAM OXALATE 10 MG TAB PO SCH (08:15)
[2019-11-09] MEDS: RIVAROXABAN 20 MG TAB PO SCH (08:15)
[2019-11-09] MEDS: GABAPENTIN 300 MG CAP PO SCH ×2 (08:15→20:40)
[2019-11-09] MEDS: INSULIN ASPART 100 UNITS/ML 3 ML PEN SC SCH ×4 (08:24→20:41)
[2019-11-09] MEDS: CARBIDOPA/LEVODOPA 25/100MG TAB PO SCH ×4 (08:27→20:30)
[2019-11-09] MEDS ORDERED: CARBIDOPA/LEVODOPA 25/100MG TAB PO SCH (09:00)
[2019-11-09] MEDS ORDERED: ALUMINUM/MAGNESIUM SUSP 18 ML, LIDOCAINE HCL VISCOUS 2% 6 ML, BARCODE IDENTIFIER 1 EA PO ONE (13:30)
[2019-11-09] MEDS: NSS + 20MEQ KCL 20 MEQ/1,000 ML BAG IV SCH (16:54)
--- NOTE | 2019-11-09 18:36 | Family Medicine Progress Note ---
Date of Service November 09, 2019 Assessment & Plan (1) Cellulitis of right le-year-old female was admitted on 08 Nov 2019 for weakness, right leg cellulitis, amongst other symptoms. Of note, was discharged on November 11 with a diagnosis of deconditioning/weakness and a Parkinson's patient. Right leg cellulitis: Reportedly worsening as outpatient after started on Bactrim on 19May. 21May started cefepime. WBC 6. Procalcitonin negative. Lactate 1.5. Blood cultures sent. Appears to be improving early on. - Consulted wound care. Weakness, falls, Parkinson's disease: Follows with Dr. Wen. Recent admit for similar symptoms. Was scheduled to go to [facility] for rehab on day of admit but apparently was told was too sick to be there. On home Sinemet. Chest pain, GERD: Present since the prior to admit. Troponin negative x3. EKG A. fib, LAFB, T wave inversion lateral leads. Chest x-ray with stable cardiomegaly. Symptoms likely more related to reflux. Resolves with GI cocktails. 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 - Will start on Pepcid daily. Cramps of lower extremity: Perhaps related to mild dehydration. Treat with warm compresses and IVF. Tylenol as needed. Resolved earlier this AM. Hematuria: 10-30 RBCs on UA. Multiple epithelial cells. Denies any symptoms. May need recheck versus work-up as outpatient. Ongoing medical issues: - HTN, HLD: On home Lipitor. - Permanent atrial fibrillation: Rate controlled without meds. On Xarelto. - Diastolic CHF: September 2019 echocardiogram EF 55-60%, diastolic dysfunction. On home Bumex as needed. - DM2, diabetic peripheral neuropathy: Followed by endocrinology. Sep 2019 HbA1c 8.6. On home aspirin, Neurontin. At home is on Humalog. On insulin sliding scale here. - Anxiety: On home Lexapro, Ativan as needed. - History of TIA: Patient says in 2004. No noted deficits since. - Obesity: BMI 38.8. Code status: Full code. Diet: Full liquid, DM 2. IVF NS + 20 KCl at 50/hr. DVT prophy: On home Xarelto. PT/OT: Ordered. Disbo: Admitted to [facility] with telemetry. Case management consulted on admit. Baseline walks with walker. Lives alone in a condo but has neice and friends nearby. (2) Weakness: (3) Falls: (4) Parkinson disease: (5) Chest pain: (6) GERD (gastroesophageal reflux disease): (7) Cramps of lower extremity: (8) Hematuria: (9) Hypertension: (10) Hyperlipidemia: (11) Permanent atrial fibrillation: (12) Diastolic CHF: (13) Diabetes: (14) Diabetic peripheral neuropathy: (15) Anxiety: (16) History of TIA (transient ischemic attack): (17) Obesity: Admission and Anticipated Discharge Date Admission Date: November 08, 2019 Supervising Physician Co-Signing Physician Notes I personally examined the patient and verified all valencia points of history and exam, discussed case, and agree with decision making with Dr. Chaves with the following additions/exceptions: Patient feels overall better than yesterday, but still having burning in her epigastric region and chest especially after eating even Jell-O. It does seem to be relieved with a GI cocktail. She is also having significant tremors and asked that her Sinemet be given every 4 hours starting at 7 AM during the day to prevent this from happening. Vitals reviewed Gen: AAOx3, NAD, obese HEENT: Anicteric sclerae, EOMI CV: RRR no mgr nl S1S2 Pulm: CTAB no wcr Abd: +BS soft NT ND no masses or hernias Ext: No edema, 2+ DP pulses Skin: Right distal leg with very minimal erythema and warmth much improved and receded from previously drawn marker line Neuro: Resting tremor pill-rolling on the right in the hand 74-year-old female here with right leg cellulitis, progressive weakness likely related to infection and in the setting of Parkinson's disease, here with also likely gastritis and reflux esophagitis -Increase Pepcid to twice daily and if not improving, consider adding on Carafate Change her Sinemet to every 4 hours at 0 700, 1100, 1500, 1900 Hopeful for discharge to rehab in the next 1 to 2 days Subjective Found patient lying in bed very comfortably earlier this morning. She did not express any particular symptoms. - Regarding her abdominal symptoms, she says that her discomfort is greatly improved. It is gone down to a 2/10 from a 10/10. - Regarding her right leg cellulitis, she thinks it may have been there for about 2 weeks. Says it is hard for her to tell because she cannot see it. Denies any focal pain. - Regarding her leg cramps, she says those have resolved. - Overall, she denies any new symptoms. On review of symptoms, she says she has a mild headache but denies any feeling of fever, chest pain, shortness of breath, nausea or vomiting, or leg pain. Review of Systems Review of Systems: Per HPI as above. Physical Exam Physical Exam: General Appearance: Awake, alert & oriented, comfortable in general, NAD. CV: +S1S2 irregularly irregular, no murmur. Pulm: Clear to auscultation throughout. Abdomen: +BS, soft, non-tender, non-distended. Extremities: -There is some healing scabs over the right knee. -There is a skin pen line drawn on the distal right albright. Erythema in this area does not appear past this and is likely improved compared to prior. It is minimally warm and tender. There is a local bandage covering an abrasion within this area of erythema. - Bilateral 1-2+ pitting edema. Neuro: Positive longstanding bilateral foot numbness. Bilateral resting hand tremor. She has some drooping of her left eyelid. Results & Data ([facility]) Vital Signs (Past 12 Hours) Vital Signs Temp Pulse Pulse Pulse Resp BP BP 11/09/19 17:25 73 11/09/19 15:34 36.8 C 99 H 20 132/63 11/09/19 15:25 11/09/19 13:52 11/09/19 07:27 36.9 C 81 18 138/68 11/09/19 07:20 78 Pulse Ox 11/09/19 17:25 11/09/19 15:34 93 11/09/19 15:25 95 11/09/19 13:52 94 11/09/19 07:27 96 11/09/19 07:20 Laboratory Results 11/09/19 11/09/19 11/09/19 Range/Units 16:48 11:50 07:28 POC Glucose 163 H 245 H 197 H (70-99) mg/dl Troponin I (0-0.045) ng/ml 11/09/19 11/08/19 11/08/19 Range/Units 01:48 20:16 20:10 POC Glucose 196 H (70-99) mg/dl Troponin I < 0.015 < 0.015 (0-0.045) ng/ml Medications Administered Current Inpatient Medications Acetaminophen (Tylenol) 650 mg PO Q4H PRN PRN Reason: Pain or Fever Stop: 12/08/19 19:54 Aspirin (Ecotrin Ectab) 81 mg PO DAILY [facility] Stop: 12/09/19 08:59 Last Admin: 11/09/19 08:14 Dose: 81 mg Documented by: Atorvastatin Calcium (Lipitor) 10 mg PO DAILY [facility] Stop: 12/09/19 08:59 Last Admin: 11/09/19 08:15 Dose: 10 mg Documented by: Bumetanide (Bumex) 0 - 3 mg PO DAILY PRN PRN Reason: EMEDA Stop: 12/08/19 19:54 Carbidopa/Levodopa (Sinemet 25/100 Mg) 2 tab PO Q6H [facility] Stop: 12/09/19 06:59 Last Admin: 11/09/19 12:42 Dose: 2 tab Documented by: Dextrose (Dextrose 50%) 25 - 50 ml IV UD PRN; Protocol PRN Reason: Hypoglycemia Protocol Stop: 12/08/19 19:54 Escitalopram Oxalate (Lexapro Tab) 10 mg PO DAILY [facility] Stop: 12/09/19 08:59 Last Admin: 11/09/19 08:15 Dose: 10 mg Documented by: Famotidine (Pepcid) 20 mg PO QAM [facility] Stop: 12/10/19 08:59 Gabapentin (Neurontin) 300 mg PO QAM [facility] Stop: 12/09/19 08:59 Last Admin: 11/09/19 08:15 Dose: 300 mg Documented by: Gabapentin (Neurontin) 600 mg PO HS [facility] Stop: 12/08/19 20:59 Last Admin: 11/08/19 21:29 Dose: 600 mg Documented by: Glucagon (Glucagen) 1 mg SQ UD PRN; Protocol PRN Reason: Hypoglycemia Protocol Stop: 12/08/19 19:54 Glucose (Dex4 Glucose) 4 - 8 tabs PO UD PRN; Protocol PRN Reason: Hypoglycemia Protocol Stop: 12/08/19 19:54 Glucose (Glucose 40%) 15 - 30 gm PO UD PRN; Protocol PRN Reason: Hypoglycemia Protocol Stop: 12/08/19 19:54 Cefepime HCl 2,000 mg/ Syringe 20 mls @ 5.5 mls/min IV Q12H [facility]; Protocol Stop: 11/15/19 13:59 Last Admin: 11/09/19 13:48 Dose: 5.5 mls/min Documented by: Potassium Chloride/Sodium Chloride (Normal Saline W/20 Meq Kcl) 20 meq in 1,000 mls @ 50 mls/hr IV .Q20H [facility] Stop: 12/08/19 19:54 Last Admin: 11/09/19 16:54 Dose: 50 mls/hr Documented by: Insulin Aspart (Novolog Flexpen) 0 units SC ACHS [facility] Stop: 12/08/19 20:59 Last Admin: 11/09/19 17:15 Dose: 7 units Documented by: Lorazepam (Ativan) 0.5 mg PO BID PRN PRN Reason: Anxiety Stop: 12/08/19 19:54 Magnesium Hydroxide (Milk Of Magnesia) 30 ml PO Q12H PRN PRN Reason: Constipation Stop: 12/08/19 19:54 Miscellaneous (Carbohydrates For Hypoglycemia) 15 - 30 gm PO UD PRN PRN Reason: Hypoglycemia Protocol Stop: 12/08/19 19:54 Miscellaneous (Order Awaiting Action) 1 ea N/A QS [facility] Stop: 12/09/19 00:00 Last Admin: 11/09/19 15:17 Dose: Not Given Documented by: Multivitamins/Minerals (Caltrate Plus) 1 tab PO DAILY [facility] Stop: 12/09/19 08:59 Last Admin: 11/09/19 08:14 Dose: 1 tab Documented by: Ondansetron HCl (Zofran) 4 mg IV Q6H PRN PRN Reason: Nausea Stop: 12/08/19 19:54 Rivaroxaban (Xarelto) 20 mg PO DAILY [facility] Stop: 12/09/19 08:59 Last Admin: 11/09/19 08:15 Dose: 20 mg Documented by: Resident Activity Tracking Resident Involvement: Resident Care Provided Care Provided: Adult Hospital Medicine (1) Diabetes Diabetes mellitus complication status: with other specified complication Diabetes mellitus rn long term care insulin use: unspecified half-way insulin use status Diabetes mellitus type: other specified (including ROXIE) Qualified Code(s): E13.69 - Other specified diabetes mellitus with other specified complication (2) Chest pain Chest pain type: unspecified Qualified Code(s): R07.9 - Chest pain, unspecified
--- NOTE | 2019-11-09 19:32 | Billing Data ---
Date of Service November 09, 2019 Coding Level of Care Code 73954 Subseq Hosp Care Lvl 3
[2019-11-09] MEDS: FAMOTIDINE 20 MG TAB PO SCH (20:44)
[2019-11-10] MEDS: CYCLOSPORINE EYE SCH ×4 (01:04→22:55)
[2019-11-10] MEDS: CEFEPIME 2,000 MG in SYRINGE 7.5 ML IV SCH (02:18)
[2019-11-10] MEDS: CARBIDOPA/LEVODOPA 25/100MG TAB PO SCH ×4 (06:31→19:12)
[2019-11-10 07:36] LABS: Hematocrit (blood only) 40.6 % (37-47); Hemoglobin 13.5 g/dL (12.0-16.0); Mean Corpuscular Hemoglobin 29.2 pg (25-34); Mean Corpuscular Hgb Conc 33.3 g/dL (32-36); Mean Corpuscular Volume 87.7 fL (80-100); Mean Platelet Volume 10.5 fL (7.4-10.4); Platelet Count 221 K/uL (130-400); RDW Standard Deviation 47.9 fL (36.4-46.3); Red Blood Count 4.63 M/uL (4.2-5.4); White Blood Count 5.73 K/uL (4.8-10.8)
[2019-11-10] MEDS: FAMOTIDINE 20 MG TAB PO SCH ×2 (08:08→21:40)
[2019-11-10] MEDS: ATORVASTATIN 10 MG TAB PO SCH (08:09)
[2019-11-10] MEDS: ASPIRIN 81 MG ECTAB PO SCH (08:09)
[2019-11-10] MEDS: ESCITALOPRAM OXALATE 10 MG TAB PO SCH (08:09)
[2019-11-10] MEDS: RIVAROXABAN 20 MG TAB PO SCH (08:09)
[2019-11-10] MEDS: CALCIUM 600MG + VIT D 400 IU TAB PO SCH (08:10)
[2019-11-10] MEDS: GABAPENTIN 300 MG CAP PO SCH ×2 (08:10→21:40)
[2019-11-10] MEDS: INSULIN ASPART 100 UNITS/ML 3 ML PEN SC SCH ×4 (08:12→21:39)
[2019-11-10 08:16] LABS: BUN Creatinine Ratio 16.1 (10-20); Creatinine Clr Calc Pharmacy 81.1 ml/min; Est GFR (African American) 96.3; Est GFR (Non-African American) 83.1; Potassium 4.4 mmol/L (3.5-5.1)
[2019-11-10] MEDS ORDERED: FAMOTIDINE 20 MG TAB PO SCH (09:00)
[2019-11-10] MEDS: cephALEXin 500 MG CAP PO SCH ×3 (13:01→21:39)
--- NOTE | 2019-11-10 17:50 | Family Medicine Progress Note ---
Date of Service November 10, 2019 Assessment & Plan (1) Cellulitis of right le-year-old female was admitted on 08 Nov 2019 for weakness, right leg cellulitis, amongst other symptoms. Of note, was discharged on November 11 with a diagnosis of deconditioning/weakness and a Parkinson's patient. Right leg cellulitis: Reportedly worsening as outpatient after started on Bactrim on 19May. 21May started cefepime. BCx NGTD. Appears greatly improved. - 22May switched to Keflex QID for total 10 day course. Receiving wound care. Weakness, falls, Parkinson's disease: Follows with Dr. Wen ([facility] neurology). Recent admit for similar symptoms. Was scheduled to go to [facility] for rehab on day of admit but apparently was told was too sick to be there. Remains on home sinemet QID. Chest pain, GERD: Present since prior to admit. Troponin negative x3. EKG A. fib, LAFB, T wave inversion lateral leads. CXR with stable cardiomegaly. Symptoms likely more related to reflux. Resolves with GI cocktails. On monitoring analyst. On Pepcid BID and now much improved. Cramps of lower extremity: Perhaps related to mild dehydration, presently resolved after IVF. Tylenol as needed. Hematuria: 10-30 RBCs and multiple epithelial cells on 20May UA. Denies any symptoms. Recommend recheck / work-up as outpatient. Ongoing medical issues: - HTN, HLD: On home Lipitor. - Permanent atrial fibrillation: Rate controlled without meds. On Xarelto. - Diastolic CHF: September 2019 echocardiogram EF 55-60%, diastolic dysfunction. On home Bumex prn. - DM2, diabetic peripheral neuropathy: Followed by endocrinology. Sep 2019 HbA1c 8.6. On home aspirin, Neurontin. At home is on Humalog. On insulin sliding scale here. - Anxiety: On home Lexapro, Ativan as needed. - History of TIA: Patient says in 2004. No noted deficits since. - Obesity: BMI 38.8. Code status: Full code. Diet: DM 2. DVT prophy: On home Xarelto. PT/OT: See note. Disbo: Admitted to [facility]. Case management consulted on admit. Baseline walks with walker. Lives alone in a condo but has neice and friends nearby. Planning discharge to rehab. Awaiting insurance authorization. (2) Weakness: (3) Falls: (4) Parkinson disease: (5) Chest pain: (6) GERD (gastroesophageal reflux disease): (7) Cramps of lower extremity: (8) Hematuria: (9) Hypertension: (10) Hyperlipidemia: (11) Permanent atrial fibrillation: (12) Diastolic CHF: (13) Diabetes: (14) Diabetic peripheral neuropathy: (15) Anxiety: (16) History of TIA (transient ischemic attack): (17) Obesity: Admission and Anticipated Discharge Date Admission Date: November 08, 2019 Supervising Physician Co-Signing Physician Notes I personally examined the patient and verified all valencia points of history and exam, discussed case, and agree with decision making with Dr. Chaves with the following additions/exceptions: Patient feeling significantly improved today. She has no further chest pain or abdominal pains and she is tolerating food without difficulties. She is feeling ready for discharge but we are now awaiting insurance authorization for rehab. Vitals reviewed Gen: AAOx3, NAD, obese HEENT: Anicteric sclerae, EOMI CV: RRR no mgr nl S1S2 Pulm: CTAB no wcr Abd: +BS soft NT ND no masses or hernias Ext: No edema, 2+ DP pulses Skin: Right distal leg with very minimal erythema and no further warmth Neuro: No significant tremor today 74-year-old female here with right leg cellulitis, progressive weakness likely related to infection and in the setting of Parkinson's disease, here with also likely gastritis and reflux esophagitis Significantly improved with addition of Pepcid -Cellulitis almost completely resolved-convert to p.o. antibiotics today Given Parkinson's disease and progressive weakness, would greatly benefit from placement in acute rehab-awaiting insurance authorization She is medically stable for discharge at this time Subjective Found patient sitting in her bedside chair this morning. She feels very comfortable and declined any particular complaints. Says her abdominal symptoms have resolved. Denies any nausea or vomiting. She has no right leg discomfort. Her bilateral leg cramps have also resolved. Overall would like to be discharged from the hospital if possible. Review of Systems Review of Systems: Per HPI as above. Physical Exam Physical Exam: General Appearance: Awake, alert & oriented, comfortable in general, NAD. CV: +S1S2 irregularly irregular, no murmur. Pulm: Clear to auscultation throughout. Abdomen: +BS, soft, non-tender, non-distended. Extremities: - There are some healing scabs over the right knee. - There is a skin pen line drawn on the distal right albright. Currently looks more like chronic skin changes than active erythema. Not presently warm or tender. There is a local bandage covering an abrasion within this area of erythema. - Bilateral 1-2+ pitting edema. Neuro: Positive longstanding bilateral foot numbness. Bilateral resting hand tremor. She has some drooping of her left eyelid. Results & Data ([facility]) Vital Signs (Past 12 Hours) Vital Signs Temp Pulse Pulse Resp BP Pulse Ox 11/10/19 15:00 36.7 C 65 16 111/67 97 11/10/19 07:15 37.2 C 74 16 166/82 H 97 Laboratory Results 11/10/19 11/10/19 11/10/19 Range/Units 16:19 11:34 07:59 WBC (4.8-10.8) K/uL RBC (4.2-5.4) M/uL Hgb (12.0-16.0) g/dL Hct (37-47) % MCV (80-100) fL MCH (25-34) pg MCHC (32-36) g/dL RDW Std Deviation (36.4-46.3) fL RDW Coeff of Vicky (11.5-14.5) % Plt Count (130-400) K/uL MPV (7.4-10.4) fL Sodium (136-145) mmol/L Potassium (3.5-5.1) mmol/L Chloride (98-107) mmol/L Carbon Dioxide (21-32) mmol/L Anion Gap (3-11) BUN (7-18) mg/dl Creatinine (0.6-1.2) mg/dl Est Cr Clr Drug Dosing ml/min Est GFR ( Amer) Est GFR (Non-Af Amer) BUN/Creatinine Ratio (10-20) Glucose (70-99) mg/dl POC Glucose 124 H 223 H 192 H (70-99) mg/dl Calcium (8.5-10.1) mg/dl 11/10/19 11/10/19 11/09/19 Range/Units 06:41 06:41 20:43 WBC 5.73 (4.8-10.8) K/uL RBC 4.63 (4.2-5.4) M/uL Hgb 13.5 (12.0-16.0) g/dL Hct 40.6 (37-47) % MCV 87.7 (80-100) fL MCH 29.2 (25-34) pg MCHC 33.3 (32-36) g/dL RDW Std Deviation 47.9 H (36.4-46.3) fL RDW Coeff of Vicky 15.0 H (11.5-14.5) % Plt Count 221 (130-400) K/uL MPV 10.5 H (7.4-10.4) fL Sodium 138 (136-145) mmol/L Potassium 4.4 D (3.5-5.1) mmol/L Chloride 105 (98-107) mmol/L Carbon Dioxide 23 (21-32) mmol/L Anion Gap 10.0 (3-11) BUN 12 (7-18) mg/dl Creatinine 0.72 (0.6-1.2) mg/dl Est Cr Clr Drug Dosing 81.1 ml/min Est GFR ( Amer) 96.3 Est GFR (Non-Af Amer) 83.1 BUN/Creatinine Ratio 16.1 (10-20) Glucose 202 H (70-99) mg/dl POC Glucose 171 H (70-99) mg/dl Calcium 9.0 (8.5-10.1) mg/dl Medications Administered Current Inpatient Medications Acetaminophen (Tylenol) 650 mg PO Q4H PRN PRN Reason: Pain or Fever Stop: 12/08/19 19:54 Aspirin (Ecotrin Ectab) 81 mg PO DAILY [facility] Stop: 12/09/19 08:59 Last Admin: 11/10/19 08:09 Dose: 81 mg Documented by: Atorvastatin Calcium (Lipitor) 10 mg PO DAILY [facility] Stop: 12/09/19 08:59 Last Admin: 11/10/19 08:09 Dose: 10 mg Documented by: Bumetanide (Bumex) 0 - 3 mg PO DAILY PRN PRN Reason: EMEDA Stop: 12/08/19 19:54 Carbidopa/Levodopa (Sinemet 25/100 Mg) 2 tab PO 0700,1100,1500,1900 [facility] Stop: 12/09/19 19:29 Last Admin: 11/10/19 15:42 Dose: 2 tab Documented by: Cephalexin HCl (Keflex) 500 mg PO QID [facility]; Protocol Stop: 11/17/19 12:59 Last Admin: 11/10/19 13:01 Dose: 500 mg Documented by: Dextrose (Dextrose 50%) 25 - 50 ml IV UD PRN; Protocol PRN Reason: Hypoglycemia Protocol Stop: 12/08/19 19:54 Escitalopram Oxalate (Lexapro Tab) 10 mg PO DAILY [facility] Stop: 12/09/19 08:59 Last Admin: 11/10/19 08:09 Dose: 10 mg Documented by: Famotidine (Pepcid) 20 mg PO BID [facility] Stop: 12/09/19 20:59 Last Admin: 11/10/19 08:08 Dose: 20 mg Documented by: Gabapentin (Neurontin) 300 mg PO QAM [facility] Stop: 12/09/19 08:59 Last Admin: 11/10/19 08:10 Dose: 300 mg Documented by: Gabapentin (Neurontin) 600 mg PO HS [facility] Stop: 12/08/19 20:59 Last Admin: 11/09/19 20:40 Dose: 600 mg Documented by: Glucagon (Glucagen) 1 mg SQ UD PRN; Protocol PRN Reason: Hypoglycemia Protocol Stop: 12/08/19 19:54 Glucose (Dex4 Glucose) 4 - 8 tabs PO UD PRN; Protocol PRN Reason: Hypoglycemia Protocol Stop: 12/08/19 19:54 Glucose (Glucose 40%) 15 - 30 gm PO UD PRN; Protocol PRN Reason: Hypoglycemia Protocol Stop: 12/08/19 19:54 Insulin Aspart (Novolog Flexpen) 0 units SC ACHS [facility] Stop: 12/08/19 20:59 Last Admin: 11/10/19 12:41 Dose: 12 units Documented by: Lorazepam (Ativan) 0.5 mg PO BID PRN PRN Reason: Anxiety Stop: 12/08/19 19:54 Magnesium Hydroxide (Milk Of Magnesia) 30 ml PO Q12H PRN PRN Reason: Constipation Stop: 12/08/19 19:54 Miscellaneous (Carbohydrates For Hypoglycemia) 15 - 30 gm PO UD PRN PRN Reason: Hypoglycemia Protocol Stop: 12/08/19 19:54 Miscellaneous (Order Awaiting Action) 1 ea N/A QS [facility] Stop: 12/09/19 00:00 Last Admin: 11/10/19 15:43 Dose: Not Given Documented by: Multivitamins/Minerals (Caltrate Plus) 1 tab PO DAILY [facility] Stop: 12/09/19 08:59 Last Admin: 11/10/19 08:10 Dose: 1 tab Documented by: Ondansetron HCl (Zofran) 4 mg IV Q6H PRN PRN Reason: Nausea Stop: 12/08/19 19:54 Rivaroxaban (Xarelto) 20 mg PO DAILY [facility] Stop: 12/09/19 08:59 Last Admin: 11/10/19 08:09 Dose: 20 mg Documented by: Resident Activity Tracking Resident Involvement: Resident Care Provided Care Provided: Adult Hospital Medicine (1) Diabetes Diabetes mellitus complication status: with other specified complication Diabetes mellitus [facility] insulin use: unspecified terminal operator insulin use status Diabetes mellitus type: other specified (including ROXIE) Qualified Code(s): E13.69 - Other specified diabetes mellitus with other specified complication (2) Chest pain Chest pain type: unspecified Qualified Code(s): R07.9 - Chest pain, unspecified
--- NOTE | 2019-11-10 20:41 | Billing Data ---
Date of Service November 10, 2019 Coding Level of Care Code 35233 Subseq Hosp Care Lvl 3
[2019-11-11] MEDS: CALCIUM 600MG + VIT D 400 IU TAB PO SCH (08:36)
[2019-11-11] MEDS: GABAPENTIN 300 MG CAP PO SCH (08:36)
[2019-11-11] MEDS: ASPIRIN 81 MG ECTAB PO SCH (08:36)
[2019-11-11] MEDS: CARBIDOPA/LEVODOPA 25/100MG TAB PO SCH (08:36)
[2019-11-11] MEDS: ESCITALOPRAM OXALATE 10 MG TAB PO SCH (08:36)
[2019-11-11] MEDS: cephALEXin 500 MG CAP PO SCH (08:36)
[2019-11-11] MEDS: FAMOTIDINE 20 MG TAB PO SCH (08:37)
[2019-11-11] MEDS: ATORVASTATIN 10 MG TAB PO SCH (08:37)
[2019-11-11] MEDS: CYCLOSPORINE EYE SCH (08:37)
[2019-11-11] MEDS: RIVAROXABAN 20 MG TAB PO SCH (08:37)
[2019-11-11] MEDS: INSULIN ASPART 100 UNITS/ML 3 ML PEN SC SCH (08:39)
--- NOTE | 2019-11-11 09:59 | Discharge Summary ---
Date of Service November 11, 2019 Admission HPI Per Admitting Provider 74 y/o F with multiple medical complaints. Pt was d/c'd from [facility] on 10/12. She was recommended for rehab at that time, but per notes, she declined. She went home with N instead. Pt states that she has become progressively more weak over the last few weeks. She generally lives alone, however her family has had to move in to help as she cannot manage for herself. She cannot even get out of a chair on her own. It was noted that she had a red and swollen R LE and she was seen by PCP yesterday. She was started on bactrim. She does not think her LE has improved today. Pt states that prior to starting abx, she felt like her "belly was on fire, my throat too". She states hx of GERD, but her medication for this was stopped after an admission last November. She has not had issues with GERD recently, but she states that this feels like her prior GERD. She has had nausea without emesis today. She had diarrhea x1 yesterday. She has some chest pain, but she cannot say if this is similar to the burning in her abd or if it is different. It is substernal only. Pt started having intense b/l LE cramping today. She states that she gets LE cramping often, but not this intense. She states she generally walks around to resolve this, but cannot walk with her current weakness. She states she has been SOB with lying flat. Pt states she did fall, but this was a few weeks ago. She states she was in the bathroom. EMS or police came to help her, but she was fine after and did not require ED eval. She states she did not eat anything today, but ate without issue yesterday. She is hungry now. Pt denies fever. Admission Exam Per Admitting Provider Constitutional: WD/WN, vitals as above + ill appearing Eyes: normal visual godoy by confrontation and + anicteric sclerae Neck: normal visual inspection and trachea midline Respiratory: normal respiratory effort, lungs clear to auscultation Cardiovascular: Rate/Rhythm: regular rate and regular rhythm Gastrointestinal (Abdomen): Inspection/Auscultation: abdomen not distended Percussion/Palpation: + abdomen tender (epigastric) and abdomen soft Musculoskeletal: Head/Neck/Chest: normocephalic and head atraumatic R>L LE edema, peripheral pulses intact Skin: R LE with redness, I dimitrios lines around this Neurologic: awake; not confused Speech / Cognition: normal speech Psychiatric: Orientation: oriented x 3 Affect: + tearful affect Principal Diagnosis Right leg cellulitis, weakness, falls, Parkinson's disease, chest pain, GERD, lower extremity cramps, hematuria Discharge Exam General Appearance: Awake, alert & oriented, comfortable in general, NAD. CV: +S1S2 irregularly irregular, no murmur. Pulm: Clear to auscultation throughout. Abdomen: +BS, soft, non-tender, non-distended. Extremities: - There are some healing scabs over the right knee. - There is a skin pen line drawn on the distal right albright. Currently looks more like chronic skin changes than active erythema. Not presently warm or tender. There is a local bandage covering area of mild skin breakdown within this area of erythema. - Bilateral 1-2+ pitting edema. Neuro: Positive longstanding bilateral foot numbness. Right hand resting hand tremor. She has some drooping of her left eyelid. Discharge Data Allergies Allergy/AdvReac Type Severity Reaction Status Date / Time benztropine Allergy Unknown UNKNOWN Verified 11/08/19 14:04 citalopram Allergy Unknown UNKNOWN Verified 11/08/19 14:04 simvastatin Allergy Unknown UNK Verified 11/08/19 14:04 sulindac Allergy Unknown UNKNOWN Verified 11/08/19 14:04 doxycycline AdvReac Mild NAUSEA Verified 11/08/19 14:04 minocycline AdvReac Mild NAUSEA Verified 11/08/19 14:04 Consultations 11/08/19 16:07 ED Decision to Admit Stat 11/08/19 19:55 Consult Case Management - Discharge Planning Routine Ordered Studies Single view chest x-ray on November 08, 2019 IMPRESSION: Stable mild cardiomegaly. Otherwise, no acute process within the chest. Hospital Course (1) Cellulitis of right le-year-old female was admitted on 08 Nov 2019 for weakness, right leg cellulitis, amongst other symptoms. Of note, was discharged on 24Apr with a diagnosis of falls and Parkinson disease. Right leg cellulitis: Reportedly worsening as outpatient after started on Bactrim on 19May. 21May started cefepime. Blood cultures no growth x 48 hours (at time of discharge). Appears greatly improved. - Discharged on Keflex QID for anticipated 10 day total antibiotic course. Weakness, falls, Parkinson's disease: Follows with Dr. Wen ([facility] neurology). Recent admit for similar symptoms. Was scheduled to go to [facility] for rehab on day of admit but apparently was told was too sick to be there. Remains on home sinemet QID. - Discharged to [facility] for rehab. Chest pain, GERD: Present since prior to admit. Troponin negative x3. EKG A. fib, LAFB, T wave inversion lateral leads. CXR with stable cardiomegaly. Symptoms likely more related to reflux. Resolves with GI cocktails. On court recording monitor. - Discharged on new Pepcid BID. Cramps of lower extremity: Perhaps related to mild dehydration, presently resolved after IVF. Tylenol as needed. Hematuria: 10-30 RBCs and multiple epithelial cells on 20May UA. Denies any symptoms. Recommend recheck / work-up as outpatient. Ongoing medical issues: - HTN, HLD: On home Lipitor. - Permanent atrial fibrillation: Rate controlled without meds. On Xarelto. - Diastolic CHF: September 2019 echocardiogram EF 55-60%, diastolic dysfunction. On home Bumex prn. - DM2, diabetic peripheral neuropathy: Followed by endocrinology. Sep 2019 HbA1c 8.6. On home aspirin, Neurontin. At home is on Humalog. Was on insulin sliding scale as inpatient. - Anxiety: On home Lexapro, Ativan as needed. - History of TIA: Patient says in 2004. No noted deficits since. - Obesity: BMI 38.8. Code status: Full code. (2) Weakness: (3) Falls: (4) Parkinson disease: (5) Chest pain: (6) GERD (gastroesophageal reflux disease): (7) Cramps of lower extremity: (8) Hematuria: (9) Hypertension: (10) Hyperlipidemia: (11) Permanent atrial fibrillation: (12) Diastolic CHF: (13) Diabetes: (14) Diabetic peripheral neuropathy: (15) Anxiety: (16) History of TIA (transient ischemic attack): (17) Obesity: Total Time Total Time Spent Total Time Spent (In Minutes): > 30 min Discharge Plan Discharge Items Patient Disposition: Transfer Inpatient Rehab Fac Reason For Visit: WEAKNESS Discharge Diagnosis: Right leg cellulitis, weakness, falls, Parkinson's disease, chest pain, GERD, lower extremity cramps, hematuria Condition on Discharge: Fair Activity: Per Instructions section Non-emergency contact: Primary Care Provider Call non-emergency contact if: you have any medication questions Follow-up/Referrals: Damaris Vega MD [Primary Care Provider] - Diet: Carb Consistent or DM2 Addtl Attending Provider Instructions: You were admitted to the hospital on November 08, 2019. While here we evaluated for the following issues: Right leg cellulitis: On the hospital you were started on some IV antibiotics. This appears to have worked quite well for your leg infection. We will be discharging you on an antibiotic called Keflex for an additional eight days. Weakness, falls, Parkinson's disease: As you know, you were on track to go to [facility] before this admission. Please work with the healthcare providers over there for your ongoing medical needs. Chest pain, acid reflux: After evaluation, most likely most of your chest pain is related to acid reflux. We started you on a medicine called Pepcid. Please follow-up with your primary care provider to monitor ongoing symptoms and for how long you need to stay on this new medication. Leg cramps: Fortunately, this seemed to resolve after getting rehydrated. Blood in your urine: When we checked your urine, there was a small amount of blood seen on the lab work. This is not likely to be an emergency. However, you should follow-up with your primary care provider to get a recheck of your urine in the next few weeks. Overall, please follow-up with [facility] as well as your primary care provider for all of the above. Please return to the nearest emergency department if you develop any new chest pain, concerns for leg infection, or any other emergent concerns. Pending Studies at Discharge: Yes Studies:: Final results of blood cultures. Stand-Alone Forms: [facility] Skilled Items Patient informed of condition?: Yes DNR: No Discharge Level of Care: Acute rehab Communicable Disease: No Discharge Prognosis: Stable Lines: None Urinary Catheter: No Medications and DC Order Prescriptions: New famotidine 20 mg Tablet 20 mg PO BID 30 Days Qty: 60 RF: 0 carbidopa-levodopa 25-100 mg Tablet 2 tab PO 0700,1100,1500,1900 30 Days Qty: 240 RF: 0 Continued Restasis MultiDose 0.05 % drops 1 drops OP Q12H RF: 0 (DME) lancets [OneTouch Delica Lancets] 33 gauge misc See Dose Instructions .ROUTE .MEDSUPPLY Qty: 100 RF: 0 (DME) OneTouch Verio test strips Strip See Dose Instructions .ROUTE .MEDSUPPLY RF: 0 aspirin [Aspirin Low Dose] 81 mg tablet,delayed release (DR/EC) 81 mg PO DAILY RF: 0 calcium carbonate-vitamin D3 [Calcium 500 + D] 500 mg(1,250mg) -200 unit tablet 1 tab PO DAILY RF: 0 atorvastatin 10 mg tablet 10 mg PO DAILY RF: 0 gabapentin 300 mg capsule See Rx Instructions .ROUTE .COMPLEX RF: 0 bumetanide 1 mg tablet See Rx Instructions .ROUTE .COMPLEX Qty: 30 RF: 0 lorazepam 0.5 mg tablet 0.5 mg PO BID PRN (Reason: Anxiety) RF: 0 escitalopram oxalate 10 mg tablet 10 mg PO DAILY RF: 0 Xarelto 20 mg tablet 20 mg PO DAILY RF: 0 insulin lispro [Humalog U-100 Insulin] 100 unit/mL solution 0 units SQ UD RF: 0 Discontinued sulfamethoxazole-trimethoprim 800-160 mg tablet 1 tab PO BID RF: 0 Discharge Orders: Discharge Order (Routine); Ordered 11/11/19 Ordered By: Rosalio Johnson/Other Patient Handouts: Diabetes Healthy Meals, GERD Lifestyle Changes Admission Data Admit Date/Time: 11/08/19 17:01 Attending Provider: Lyudmila Vazquez Admit Provider: Caro Torrez Primary Care Provider: Damaris Vega Other Interventions: Discharge Summary Assessment (RN) Last Done: 11/11/19 09:55 DC Date/Time DO NOT enter until pt leaves facility: 11/11/19 10:26 Supervising Physician Co-Signing Physician Notes I personally examined the patient and verified all valencia points of history and exam, discussed case, and agree with decision making with Dr. Chaves with the following additions/exceptions: Patient feeling excellent today. No nausea, no abdominal pains. Legs feel really good. She is excited for discharge to rehab. Vitals reviewed Gen: AAOx3, NAD, obese HEENT: Anicteric sclerae, EOMI CV: RRR no mgr nl S1S2 Pulm: CTAB no wcr Abd: +BS soft NT ND no masses or hernias Ext: No edema, 2+ DP pulses Skin: Right distal leg with no further erythema and no further warmth Neuro: No significant tremor today 74-year-old female here with right leg cellulitis, progressive weakness likely related to infection and in the setting of Parkinson's disease, here with also likely gastritis and reflux esophagitis Significantly improved with addition of Pepcid and po abx -Cellulitis almost completely resolved-converted to p.o. antibiotics and will finish out a course Given Parkinson's disease and progressive weakness, would greatly benefit from placement in acute rehab-today She is medically stable for discharge at this time Resident Activity Tracking Resident Involvement: Resident Care Provided Care Provided: Adult Hospital Medicine
--- NOTE | 2019-11-23 11:31 | Billing Data ---
Date of Service November 11, 2019 I spent greater than 30 minutes coordinating the discharge Coding Level of Care Code D/C Day Management >30 mins
== END 2019-11-11 10:26 ==
LOC: ED 13:09 → SUATTDRO 17:01 → INTOOBSV 17:01 → 2N 17:01
DX: Z86.73 Personal history of transient ischemic attack (TIA), and cerebral infarction without residual deficits; E78.5 Hyperlipidemia, unspecified; Z88.8 Allergy status to other drugs, medicaments and biological substances; I11.0 Hypertensive heart disease with heart failure; Z68.38 Body mass index [BMI] 38.0-38.9, adult; E11.40 Type 2 diabetes mellitus with diabetic neuropathy, unspecified; G20 Parkinson's disease; R07.9 Chest pain, unspecified; F41.9 Anxiety disorder, unspecified; L03.115 Cellulitis of right lower limb; R31.9 Hematuria, unspecified; Z88.1 Allergy status to other antibiotic agents; I50.32 Chronic diastolic (congestive) heart failure; R25.2 Cramp and spasm; K21.9 Gastro-esophageal reflux disease without esophagitis; I48.21 Permanent atrial fibrillation; R29.6 Repeated falls; R53.1 Weakness; E66.9 Obesity, unspecified

== ENCOUNTER 2020-02-16 20:28 | Observation (INO) ==
--- NOTE | 2020-02-16 20:56 | Emergency Department Note ---
History of Present Illness General Chief complaint: Stroke/CVA Symptoms Time Seen by Provider: 02/16/20 20:38 Source: patient, family and EMS Mode of arrival: EMS Limitations: altered mental status History of Present Illness Provider complaint: Confusion Onset (ago): hour(s) Location: head Radiation: non-radiation Severity: moderate Pain Consistency: + constant Relieved By: + none Associated symptoms: + chest pain and + headaches; no fever/chills, no nausea/vomiting and no shortness of breath This is a 74-year-old female who is brought in by EMS for neurologic symptoms. The patient states that 1800 today her sister observed that she had confusion with slurred speech and difficulty finding words. She also noted that she had right arm numbness at that time without weakness. She was also seeing red colors everywhere. Her symptoms are mostly resolved other than confusion and slurred speech. She does complain of pressure in her head. She states that she is on Xarelto and took it tonight. She denies any recent falls. She denies any numbness or weakness in her other extremities other than chronic numbness in her legs due to neuropathy. On review of systems she does state that she has been having chest pain for over 3 years. She states that ever since she was diagnosed with A. fib she has had intermittent chest pressure. She developed it a few hours ago and it seems to be mostly resolved at this time. She denies shortness of breath, diaphoresis, cough or cold symptoms, fever, vomiting or diarrhea. She does state that she was recently diagnosed with an infection to her right leg but states that her prescriptions almost out but she still has redness and pain there. Home Medications Home Medications Medication Instructions Recorded Confirmed Type aspirin 81 mg tablet,delayed 81 mg PO DAILY tab 01/19/19 02/16/20 History release atorvastatin 10 mg tablet 10 mg PO DAILY tab 01/19/19 02/16/20 History calcium carbonate 500 mg (1,250 1 tab PO DAILY tab 01/19/19 02/16/20 History mg)-vitamin D3 200 unit tablet gabapentin 300 mg capsule 300 mg PO QAM cap 01/19/19 02/16/20 History bumetanide See Rx Instructions .ROUTE 08/31/19 02/16/20 Rx .COMPLEX #30 tab Xarelto 20 mg PO QPM 11/08/19 02/16/20 History lorazepam 0.5 mg PO BID PRN 11/08/19 02/16/20 History insulin lispro 100 unit/mL See Rx Instructions SQ UD #9 vial 01/08/20 02/16/20 Rx subcutaneous solution Saccharomyces boulardii [Florastor] 250 mg PO BID #20 cap 02/07/20 02/16/20 Rx carbidopa-levodopa 2 tab PO QID 02/07/20 02/16/20 History cephalexin 500 mg PO QID 02/16/20 02/16/20 History diclofenac sodium 1 applic TOPICAL BID 02/16/20 02/16/20 History gabapentin 600 mg PO HS 02/16/20 02/16/20 History Allergies Allergy/AdvReac Type Severity Reaction Status Date / Time benztropine Allergy Unknown UNKNOWN Verified 02/07/20 17:18 citalopram Allergy Unknown UNKNOWN Verified 02/07/20 17:18 simvastatin Allergy Unknown UNK Verified 02/07/20 17:18 sulindac Allergy Unknown UNKNOWN Verified 02/07/20 17:18 doxycycline AdvReac Mild NAUSEA Verified 02/07/20 17:18 minocycline AdvReac Mild NAUSEA Verified 02/07/20 17:18 Past Med/Surg History Medical History Alteration in tactile sense Anxiety CHF (congestive heart failure) Diabetes GERD (gastroesophageal reflux disease) History of TIA (transient ischemic attack) Hypertension Mitral valve disorder Obesity Parkinson disease Permanent atrial fibrillation Surgical History H/O breast biopsy History of eye surgery Knee joint replacement status S/P appendectomy S/P cholecystectomy Family History Mother Colorectal cancer Congestive heart failure Diabetes Hypertension Brother Colorectal cancer Congestive heart failure Sister Cancer Unknown Pancreatic cancer Social History Smoking Status: Never smoker Second Hand Exposure: No; Hx Alcohol Use: No Hx Substance Use: No Preferred Language: Nepali Communication Ability: Effective Chart Computer Required: No Beliefs That Will Affect Care: None marital status: Current Living Situation: Alone Feels Safe at Home: Yes Review of Systems See HPI for pertinent positives & negatives. and A total of 10 systems reviewed and were otherwise negative Physical Exam Vital Signs Vital Signs - 24 hr 02/16/20 20:20 02/16/20 20:54 02/16/20 21:30 Temperature 36.6 C Temperature Source Oral Pulse Rate 73 72 Pulse Rate from SpO2 Sensor 73 Pulse Rhythm Irregular Pulse Strength Normal Respiratory Rate 20 17 Respiratory Effort / Characteristics Non-Labored Respiratory Depth Normal Respiratory Pattern Regular Blood Pressure 147/50 H 149/78 H Blood Pressure Mean 82 94 Pulse Oximetry 94 94 97 Oxygen Delivery Method Room Air Room Air Room Air Sepsis Recent Fever Within 48 Hours No Sepsis New/Unexplained Change in Mental Status Yes Sepsis Action Taken by Nursing No Action Required 02/16/20 21:36 Temperature Temperature Source Pulse Rate 63 Pulse Rate from SpO2 Sensor 67 Pulse Rhythm Pulse Strength Respiratory Rate 16 Respiratory Effort / Characteristics Respiratory Depth Respiratory Pattern Blood Pressure Blood Pressure Mean Pulse Oximetry 97 Oxygen Delivery Method Room Air Sepsis Recent Fever Within 48 Hours Sepsis New/Unexplained Change in Mental Status Sepsis Action Taken by Nursing Constitutional: Vital signs reviewed. Eyes: Pupils are equal round reactive to light. Conjunctiva are noninjected. ENT: Pharynx is clear without erythema or exudate. Mucous membranes are moist. Neck supple without meningeal signs. Respiratory: Clear to auscultation bilaterally. Breath sounds are equal bilaterally. Cardiovascular: Irregularly irregular rhythm. Normal rate. No rubs or gallops. GI: Soft, nondistended and nontender. Bowel sounds are present. Musculoskeletal: Diffuse erythema and swelling to the right lower extremity with ecchymosis to the foot medially and laterally. There is some mild increased warmth. Distal capillary refill is less than 2 seconds. No evidence of compartment syndrome. Integumentary: No cyanosis. or jaundice. Neurologic: The patient is somnolent with slurred speech. Cranial nerves II-XII are intact. Motor is 5 out of 5 all extremities. Sensation is intact to light touch all extremities. No pronator drift. Psychiatric: Normal affect. Not anxious appearing. Medical Decision Making Differential Diagnosis ICH, CVA, cellulitis, DVT, hematoma, metabolic derangement Medical Records Attestation: I reviewed the patient's medical records. The patient was seen here February 06 after a fall. She hit her head and had a negative CT of the head. She also had a Doppler of the right lower extremity which showed no evidence of DVT. She was discharged on Keflex. Home Medications Current Medication List: was personally reviewed by me Laboratory Data Attestation: I reviewed the patient's lab results. Result diagrams: 02/16/20 20:15 02/16/20 20:15 Lab Results 02/16/20 02/16/20 02/16/20 Range/Units 20:15 20:15 20:15 WBC 5.83 (4.8-10.8) K/uL RBC 4.30 (4.2-5.4) M/uL Hgb 12.5 (12.0-16.0) g/dL Hct 38.9 (37-47) % MCV 90.5 (80-100) fL MCH 29.1 (25-34) pg MCHC 32.1 (32-36) g/dL RDW Std Deviation 51.0 H (36.4-46.3) fL RDW Coeff of Vicky 15.5 H (11.5-14.5) % Plt Count 261 (130-400) K/uL MPV 10.6 H (7.4-10.4) fL Immature Gran % (Auto) 0.3 % Neut % (Auto) 63.7 % Lymph % (Auto) 24.0 % [place] % (Auto) 8.9 % Eos % (Auto) 2.9 % Baso % (Auto) 0.2 % Neut # (Auto) 3.71 (1.4-6.5) K/uL Lymph # (Auto) 1.40 (1.2-3.4) K/uL [place] # (Auto) 0.52 (0.11-0.59) K/uL Eos # (Auto) 0.17 (0-0.5) K/uL Baso # (Auto) 0.01 (0-0.2) K/uL Immature Gran # (Auto) 0.02 (0.00-0.02) K/uL PT 13.6 H (9.0-12.0) Seconds INR 1.3 H (0.9-1.1) APTT 34.7 H (21.0-31.0) Seconds PTT Ratio 1.2 Sodium 140 (136-145) mmol/L Potassium 3.9 (3.5-5.1) mmol/L Chloride 107 (98-107) mmol/L Carbon Dioxide 28 (21-32) mmol/L Anion Gap 6.0 (3-11) BUN 23 H (7-18) mg/dl Creatinine 0.86 (0.6-1.2) mg/dl Est Cr Clr Drug Dosing 67.9 ml/min Est GFR ( Amer) 77.7 Est GFR (Non-Af Amer) 67.0 BUN/Creatinine Ratio 26.3 H (10-20) Glucose 128 H (70-99) mg/dl Calcium 9.2 (8.5-10.1) mg/dl Magnesium 2.0 (1.8-2.4) mg/dl Total Bilirubin 1.1 H (0.2-1) mg/dl AST 15 (15-37) U/L ALT 6 L (12-78) U/L Alkaline Phosphatase 79 (45-117) U/L Troponin I < 0.015 (0-0.045) ng/ml Total Protein 6.7 (6.4-8.2) gm/dl Albumin 3.3 L (3.4-5.0) gm/dl Globulin 3.4 (2.5-4.0) gm/dl Albumin/Globulin Ratio 1.0 (0.9-2) Blood Type Antibody Screen 02/16/20 Range/Units 21:12 WBC (4.8-10.8) K/uL RBC (4.2-5.4) M/uL Hgb (12.0-16.0) g/dL Hct (37-47) % MCV (80-100) fL MCH (25-34) pg MCHC (32-36) g/dL RDW Std Deviation (36.4-46.3) fL RDW Coeff of Vicky (11.5-14.5) % Plt Count (130-400) K/uL MPV (7.4-10.4) fL Immature Gran % (Auto) % Neut % (Auto) % Lymph % (Auto) % [place] % (Auto) % Eos % (Auto) % Baso % (Auto) % Neut # (Auto) (1.4-6.5) K/uL Lymph # (Auto) (1.2-3.4) K/uL [place] # (Auto) (0.11-0.59) K/uL Eos # (Auto) (0-0.5) K/uL Baso # (Auto) (0-0.2) K/uL Immature Gran # (Auto) (0.00-0.02) K/uL PT (9.0-12.0) Seconds INR (0.9-1.1) APTT (21.0-31.0) Seconds PTT Ratio Sodium (136-145) mmol/L Potassium (3.5-5.1) mmol/L Chloride (98-107) mmol/L Carbon Dioxide (21-32) mmol/L Anion Gap (3-11) BUN (7-18) mg/dl Creatinine (0.6-1.2) mg/dl Est Cr Clr Drug Dosing ml/min Est GFR ( Amer) Est GFR (Non-Af Amer) BUN/Creatinine Ratio (10-20) Glucose (70-99) mg/dl Calcium (8.5-10.1) mg/dl Magnesium (1.8-2.4) mg/dl Total Bilirubin (0.2-1) mg/dl AST (15-37) U/L ALT (12-78) U/L Alkaline Phosphatase (45-117) U/L Troponin I (0-0.045) ng/ml Total Protein (6.4-8.2) gm/dl Albumin (3.4-5.0) gm/dl Globulin (2.5-4.0) gm/dl Albumin/Globulin Ratio (0.9-2) Blood Type A Positive Antibody Screen NEGATIVE Imaging Data Attestation: I personally reviewed and interpreted this imaging study as follows: My Impression: Chest x-ray per my interpretation shows no acute cardiopulmonary process. Radiologist's Impression: CT HEAD: No intracranial hemorrhage or apparent acute cortical infarct. MRI is more sensitive if warranted. Involutional changes with small vessel disease. Cataract surgery. Left scleral banding and dense material in the left globe. Radiologist: Priscila Sykes M.D. Study ready at 22:06 and initial results transmitted at 22:08 ECG Data Attestation: I personally reviewed and interpreted this ECG as follows: Indication: + chest pain Rate (beats per minute): 66 Rhythm: + atrial fibrillation ECG Intervals/blocks: + Left anterior fascicular block ECG ST segments: no ST elevation ECG Findings: no PVCs Comparison ECG Date: from (November 08, 2019) Change: no significant change Blood Pressure Blood Pressure Findings: Elevated blood pressure Blood Pressure Disposition: Referred to patients primary care provider MDM Narrative I did evaluate the patient as noted above. I did provide prehospital medical command for the patient. She was not made a stroke alert as she is on Xarelto and took it today. IV access was established. I did place an order for continuous cardiac monitoring. The monitor showed atrial fibrillation with a rate of 65. I did order and personally review the patient's 12-lead EKG as described above. She has atrial fibrillation without any acute ischemia. I did order and personally reviewed the images of the patient's chest x-ray as described above. There is no evidence of acute process. I did order and review the patient's blood work as noted in the electronic medical record. CBC is unremarkable without leukocytosis or anemia. Electrolytes are unremarkable as well. Glucose is 128. Troponin is negative. I did order a CT of the head. I did review the images myself as well as the radiology report as described above. There is no evidence of acute intracranial process. I did discuss the test results with the patient. On reexamination patient states that her symptoms are almost completely resolved. I did recommend hospitalization for repeat cardiac biomarkers as well as MRI of the brain. I did discuss the case with the hospitalist and major case detective. Impression & Plan Expressive aphasia, Chest pain, Right arm numbness, Slurred speech, Hematoma of right lower extremity Discharge Plan Visit Data Chief Complaint: Stroke/CVA Symptoms ED Provider: Jase Vela Discharge Problem: Expressive aphasia, Chest pain, Right arm numbness, Slurred speech, Hematoma of right lower extremity Patient Disposition: Being Evaluated by Hospitalist Forms Stand Alone Forms: My [facility] [place] SOAK ([employer] tool[employer]) Prescriptions Prescriptions: No Action insulin lispro [Humalog U-100 Insulin] 100 unit/mL solution See Rx Instructions SQ UD Qty: 9 RF: 3 gabapentin 300 mg Capsule 600 mg PO HS RF: 0 cephalexin 500 mg capsule 500 mg PO QID RF: 0 diclofenac sodium 3 % Gel 1 applic TOPICAL BID RF: 0 aspirin [Aspirin Low Dose] 81 mg tablet,delayed release (DR/EC) 81 mg PO DAILY RF: 0 calcium carbonate-vitamin D3 [Calcium 500 + D] 500 mg(1,250mg) -200 unit tablet 1 tab PO DAILY RF: 0 atorvastatin 10 mg tablet 10 mg PO DAILY RF: 0 gabapentin 300 mg capsule 300 mg PO QAM RF: 0 bumetanide 1 mg tablet See Rx Instructions .ROUTE .COMPLEX Qty: 30 RF: 0 lorazepam 0.5 mg tablet 0.5 mg PO BID PRN (Reason: Anxiety) RF: 0 Xarelto 20 mg tablet 20 mg PO QPM RF: 0 carbidopa-levodopa 25-100 mg tablet 2 tab PO QID RF: 0 Saccharomyces boulardii [Florastor] 250 mg capsule 250 mg PO BID Qty: 20 RF: 0 Referrals Referrals: Damaris Vega MD [Primary Care Provider] -
[2020-02-16 21:01] LABS: Basophils # (auto) 0.01 K/uL (0-0.2); Basophils % (auto) 0.2 %; Eosinophils # (auto) 0.17 K/uL (0-0.5); Eosinophils % (auto) 2.9 %; Hematocrit (blood only) 38.9 % (37-47); Hemoglobin 12.5 g/dL (12.0-16.0); Immature Granulocytes # (auto) 0.02 K/uL (0.00-0.02); Immature Granulocytes % (auto) 0.3 %; Mean Corpuscular Hemoglobin 29.1 pg (25-34); Mean Corpuscular Hgb Conc 32.1 g/dL (32-36); Mean Corpuscular Volume 90.5 fL (80-100); Mean Platelet Volume 10.6 fL (7.4-10.4); Monocytes # (auto) 0.52 K/uL (0.11-0.59); Monocytes % (auto) 8.9 %; Neutrophils # (auto) 3.71 K/uL (1.4-6.5); Neutrophils % (auto) 63.7 %; Platelet Count 261 K/uL (130-400); RDW Coefficient of Variation 15.5 % (11.5-14.5); White Blood Count 5.83 K/uL (4.8-10.8)
[2020-02-16 21:11] LABS: Alanine Aminotransferase 6 U/L (12-78); Albumin Level 3.3 gm/dl (3.4-5.0); Aspartate Aminotransferase 15 U/L (15-37); BUN Creatinine Ratio 26.3 (10-20); Blood Urea Nitrogen 23 mg/dl (7-18); Calcium 9.2 mg/dl (8.5-10.1); Carbon Dioxide 28 mmol/L (21-32); Chloride 107 mmol/L (98-107); Creatinine Clr Calc Pharmacy 67.9 ml/min; Est GFR (African American) 77.7; Glucose 128 mg/dl (70-99); Potassium 3.9 mmol/L (3.5-5.1); Sodium 140 mmol/L (136-145)
[2020-02-16 21:16] LABS: Alkaline Phosphatase 79 U/L (45-117); Bilirubin,Total 1.1 mg/dl (0.2-1); Globulin 3.4 gm/dl (2.5-4.0); Total Protein 6.7 gm/dl (6.4-8.2); Troponin I < 0.015 ng/ml (0-0.045)
[2020-02-16 21:21] LABS: INR 1.3 (0.9-1.1); Partial Thromboplastin Ratio 1.2; Partial Thromboplastin Time 34.7 Seconds (21.0-31.0); Prothrombin Time 13.6 Seconds (9.0-12.0)
--- NOTE | 2020-02-17 00:35 | History & Physical Report ---
Date of Service February 17, 2020 Assessment & Plan (1) Expressive aphasia: Mrs. Ramirez is a 74 yo woman with a PMHx of TIA, complicated migraines, insulin dependent diabetes mellitus, HTN and permanent Afib on Xarelto who presents for evaluation of confusion, expressive aphasia and R upper extremity numbness. Symptoms resolved by the time evaluation. - etiology unknown, although ischemic stroke vs. TIA vs. complicated migraine are atop the differential - patient has several risk factors for vascular disease: HTN, diabetes, Afib - given transient nature of symptoms, TIA and complicated migraines are felt > ischemic stroke - patient denies headache, although she reports history of complicated migraine without associated head pain - Head CT neg for acute bleed - complete stroke work up ordered (Head and Neck CTA, Brain MRI, TTE, fasting lipid panel and Hb1c). - Neurology consult ordered - if stroke or TIA is suspected, consider changing from ASA to Plavix and increasing Atorvastatin from 10 to either 40 or 80mg, daily (2) Cellulitis: - Right LE erythematous, warm and tender - not improving on PO Keflex - given hx of diabetes, we will add pseudomonal coverage with zosyn - Dapto initiated for MRSA coverage - would recommend d/c if MRSA nares returns as negative (3) Hematoma of right lower leg: - likely secondary to trauma (playful accident with granddaughter) - improving since onset - no active management - venous duplex on 02/06 negative for DVT (4) Type 2 diabetes mellitus with retinopathy, with long-term current use of insulin: - most recent A1c /2019 above goal at 8.6 - repeat level in AM - continue home insulin regimen - continue ASA 81mg, daily and Atorvastatin 10mg, daily - follows with purchasing department clerk (5) Diastolic CHF: - continue home dose bumex - does not appear to be on a pennie toshia or MARCO (would not add in setting of stroke work up - want to allow for permissive HTN) (6) Hypertension: - BP 155/75 - does not appear to be on any home medications - would recommend starting MARCO/ARB given concurrent diabetes diagnosis (however holding off now given current stroke work up - want to allow for permissive HTN) (7) Permanent atrial fibrillation: - rate controlled without medication - anticoagulated on Xarelto - TTE in AM to assess for thrombus (8) Parkinson disease: - continue home dose carbidopa-levodopa Dispo: PCU/Tele DVT ppx: on Xarleto Diet: Heart healthy, DM 2 Code: full History of Present Illness Primary Care Provider: Damaris Vega MD Lainey Fernandes is a 74 yo woman with a PMHx of TIA (in 2004), complicated migraines, insulin-dependent diabetes mellitus, HTN, and A-fib on Xarelto who presented for evaluation of confusion, expressive aphasia and R arm numbness (not weakness) that started earlier today. She also reports an unusual visual phenomenon of seeing red blotches over the past several days. Her sister was with her today and noticed that Lainey Fernandes was mildly confused and seemed to be having word finding troubles. Her NIH stroke scale on admission was 0. tPa is contraindicated due to her Xarelto use. By the time of her evaluation, all of her symptoms had totally resolved. Of note, Lainey Fernandes was in the ED on 02/06 after a fall. Head CT at the time was negative for acute bleed. She denies any subsequent falls. A venous doppler of her right lower extremity was also ordered on 02/06, as her leg was red, warm and swollen. It was negative for DVT. Lainey Fernandes attributes her leg swelling and discomfort to a trauma (her granddaughter collided with her while playing). She was sent out with a 7 day course of Keflex, of which she is currently on day 6 ED Course: CBC normal. CMP normal. INR 1.3. trop x 1 undetectable. EKG showing rate controlled Afib. CXR showing no active disease in the chest (awaiting final read). Head CT showing no acute bleed (per STAT RAD). Patient was Allergies Allergy/AdvReac Type Severity Reaction Status Date / Time benztropine Allergy Unknown UNKNOWN Verified 02/07/20 17:18 citalopram Allergy Unknown UNKNOWN Verified 02/07/20 17:18 simvastatin Allergy Unknown UNK Verified 02/07/20 17:18 sulindac Allergy Unknown UNKNOWN Verified 02/07/20 17:18 doxycycline AdvReac Mild NAUSEA Verified 02/07/20 17:18 minocycline AdvReac Mild NAUSEA Verified 02/07/20 17:18 Home Medications Home Medications Medication Instructions Recorded Confirmed Type aspirin 81 mg tablet,delayed 81 mg PO DAILY tab 01/19/19 02/16/20 History release atorvastatin 10 mg tablet 10 mg PO DAILY tab 01/19/19 02/16/20 History calcium carbonate 500 mg (1,250 1 tab PO DAILY tab 01/19/19 02/16/20 History mg)-vitamin D3 200 unit tablet gabapentin 300 mg capsule 300 mg PO QAM cap 01/19/19 02/16/20 History bumetanide See Rx Instructions .ROUTE 08/31/19 02/16/20 Rx .COMPLEX #30 tab Xarelto 20 mg PO QPM 11/08/19 02/16/20 History lorazepam 0.5 mg PO BID PRN 11/08/19 02/16/20 History insulin lispro 100 unit/mL See Rx Instructions SQ UD #9 vial 01/08/20 02/16/20 Rx subcutaneous solution Saccharomyces boulardii [Florastor] 250 mg PO BID #20 cap 02/07/20 02/16/20 Rx carbidopa-levodopa 2 tab PO QID 02/07/20 02/16/20 History cephalexin 500 mg PO QID 02/16/20 02/16/20 History diclofenac sodium 1 applic TOPICAL BID 02/16/20 02/16/20 History gabapentin 600 mg PO HS 02/16/20 02/16/20 History Past Med/Surg History Medical History Alteration in tactile sense Anxiety CHF (congestive heart failure) Diabetes GERD (gastroesophageal reflux disease) History of TIA (transient ischemic attack) Hypertension Mitral valve disorder Obesity Parkinson disease Permanent atrial fibrillation Surgical History H/O breast biopsy History of eye surgery Knee joint replacement status S/P appendectomy S/P cholecystectomy Family History Mother Colorectal cancer Congestive heart failure Diabetes Hypertension Brother Colorectal cancer Congestive heart failure Sister Cancer Unknown Pancreatic cancer Social History Smoking Status: Never smoker Second Hand Exposure: No; Do You Dip or Chew Tobacco: No; Tobacco Cessation Education Requested by Patient: No Hx Alcohol Use: Yes Alcohol type: wine Hx Substance Use: No Preferred Language: Mohawk Communication Ability: Effective Deli Bakery Clerk Required: No Beliefs That Will Affect Care: None marital status: Current Living Situation: Alone Other Information That Helps Us Care for You: No Feels Safe at Home: Yes Safety Concerns: Feels Safe At This Time Review of Systems Neurologic: + chronic bilateral LE neuropathy Physical Exam Constitutional: WD/WN, vitals as above cooperative Eyes: PERRL, conjunctivae normal, anicteric sclerae normal accommodation and EOM intact bilaterally; no nystagmus Patient blinks throughout exam ENMT: external ear and nose normal, oropharynx normal Throat: uvula midline Neck: normal visual inspection and trachea midline Respiratory: normal respiratory effort, lungs clear to auscultation Cardiovascular: Rate/Rhythm: regular rate and + irregularly irregular Heart Sounds: normal S1 and normal S2; no murmur Vessels: radial pulses present Gastrointestinal (Abdomen): normal bowel sounds, soft, nontender, no hepatosplenomegaly Skin: + ecchymosis (R LE ), + erythema (R LE, confluent ) and + nails dystrophic Neurologic: CN's II-XI intact bilaterally, moves all extremities and awake; no focal motor deficits Speech / Cognition: normal speech, no expressive aphasia and no receptive aphasia Motor/Sensory: no tremor, no pronator drift and no sensory deficit Cranial Nerves: normal facial strength, tongue midline and able to rotate head bilaterally Coordination: normal [id number] test Psychiatric: A+Ox3, euthymic affect Results & Data Results & Data ([facility]) Vital Signs (Past 12 Hours) Vital Signs Temp Pulse Resp BP Pulse Ox 02/16/20 21:36 63 16 97 02/16/20 21:30 72 17 149/78 H 97 02/16/20 20:54 36.6 C 73 20 147/50 H 94 02/16/20 20:20 94 Supervising Physician Co-Signing Physician Notes Patient seen and examined, chart reviewed, case discussed with Dr. Curtis and I agree with her assessment and plan as documented above. Briefly, patient is a 74-year-old female with history of diabetes, hypertension, atrial fibrillation on Xarelto anticoagulation, Parkinson's disease, complicated migraine and TIA in 2004 presenting with episode of confusion, expressive aphasia and numbness/tingling of the right arm. Also reports some visual disturbance, seeing red lines and blotches on her clothing. On physical exam patient is afebrile, hemodynamically stable, no acute distress. She is resting comfortably in bed awake alert and oriented x4 however, slow to answer and sometimes a bit imprecise in her answers Skinpositive warmth, redness of the right lower extremity, onychomycosis of the nails, significant bruising on right foot HEENTnormocephalic/atraumatic, pupils equal and reactive, neck supple, no JVD Heart+ S1, S2, irregularly irregular, no murmurs/rubs/gallops LungsCTA Abdomensoft, nontender, nondistended Extremitieswarm, skin findings of right lower extremity as above Neuro grossly normal Assessment/[id number] female with multiple medical problems presenting with transient neurological deficits.? TIA/CVA versus complicated migraine versus complex Parkinson's disease versus worsening infection Observation to medical floor telemetry Check MRI brain Broaden antibiotic coverage for right lower extremity cellulitis to Zosyn and daptomycin. Monitor for resolution Remainder of plan as above Resident Activity Tracking Resident Involvement: Resident Care Provided Care Provided: Adult Hospital Medicine
[2020-02-17] MEDS ORDERED: BUMETANIDE 1 MG TAB PO PRN (01:21)
[2020-02-17] MEDS ORDERED: ACETAMINOPHEN 325 MG TAB PO PRN (01:21)
[2020-02-17] MEDS ORDERED: ALUMINUM/MAGNESIUM SUSP 30 ML UDC PO PRN (01:21)
[2020-02-17] MEDS ORDERED: ZOLPIDEM TARTRATE 5 MG TAB PO PRN (01:21)
[2020-02-17] MEDS ORDERED: POLYETHYLENE (MIRALAX) 17 GM PACK PO PRN (01:21)
[2020-02-17] MEDS ORDERED: PIPERACILL/TAZOBAC CONSULT ACTIVE PRN (01:21)
[2020-02-17] MEDS ORDERED: DAPTOMYCIN CONSULT ACTIVE PRN (01:21)
[2020-02-17] MEDS ORDERED: ONDANSETRON INJ 2 MG/ML 2 ML VIAL IV PRN (01:21)
[2020-02-17] MEDS ORDERED: LORazepam 0.5 MG TAB PO PRN (01:21)
[2020-02-17] MEDS ORDERED: PHARMACIST DISCHARGE MED REC CONSULT PRN (01:21)
[2020-02-17] MEDS ORDERED: MAGNESIUM HYDROXIDE SUSP 30 ML UDC PO PRN (01:21)
[2020-02-17] MEDS ORDERED: GLUCAGON FOR INJ 1 MG VIAL IM PRN (02:00)
[2020-02-17] MEDS ORDERED: GLUCOSE 40% GEL 15 GM TUBE PO PRN (02:00)
[2020-02-17] MEDS ORDERED: CARBOHYDRATES FOR HYPOGLYCEMIA PO PRN (02:00)
[2020-02-17] MEDS ORDERED: DEXTROSE 50% 50 ML SYRINGE IV PRN (02:00)
[2020-02-17] MEDS ORDERED: GLUCOSE 10 TABS/TUBE PO PRN (02:00)
[2020-02-17] MEDS ORDERED: PIPERACILLIN/TAZOBACTAM 4.5 GM in DEXTROSE 5% 100 ML IV ONE (02:00)
[2020-02-17] MEDS ORDERED: OPTIRAY 320 125ml IV ONE (02:32)
[2020-02-17] MEDS: DAPTOmycin 300 MG in SYRINGE 0 ML IV SCH (02:35)
[2020-02-17] MEDS ORDERED: PHARMACY GLYCEMIC MGMT CONSULT PRN (02:47)
[2020-02-17] MEDS ORDERED: INSULIN GLARGINE SOLOSTAR 100 UNITS/ML 3 ML PEN SC ONE (03:00)
[2020-02-17] MEDS: INSULIN ASPART 100 UNITS/ML 3 ML PEN SC SCH ×5 (03:17→20:31)
--- NOTE | 2020-02-17 07:14 | CT Scan Report ---
CT SCAN OF THE BRAIN WITHOUT IV CONTRAST CLINICAL HISTORY: Right arm numbness. Aphasia. COMPARISON STUDY: CT of the brain dated 02/07/2020. TECHNIQUE: Unenhanced axial CT scan of the brain is performed from the vertex to the skull base. A do se lowering technique was utilized adhering to the principles of ALARA. CT DOSE: 537.48 mGy.cm FINDINGS: Brain parenchyma: There are age-related involutional changes noting mild subcortical and periventric ular microangiopathic change. There is no hemorrhage, mass effect, or evidence of acute territorial i schemia by CT criteria. Kendrick-white matter differentiation is preserved. No extra-axial fluid collecti on is seen. Ventricles, sulci, cisterns: Prominent secondary to involutional change. Intracranial vasculature: There is atherosclerotic calcification of the cavernous carotid and vertebr al arteries. Calvarium: Unremarkable. Sinuses and mastoids: The visualized paranasal sinuses are clear. The mastoid air cells are well pneu matized. Orbits: The bony orbits are grossly intact. Postoperative change is noted in the left globe. IMPRESSION: There is no hemorrhage, mass effect, or evidence of acute territorial ischemia by CT crit shea. ACT 112: Negative or not required by law. Electronically signed by: Keith Grace M.D. 02/17/2020 7:13 AM
--- NOTE | 2020-02-17 07:25 | CT Scan Report ---
CT ANGIOGRAM OF THE BRAIN; CT ANGIOGRAM OF THE NECK CLINICAL HISTORY: Strokelike symptoms. Headache. COMPARISON STUDY: CT of the brain dated 02/16/2020. MRI of the brain dated 12/26/2018. MR angiogram of the brain dated 06/10/2013. Carotid artery ultrasound dated 01/04/2015. TECHNIQUE: Following the IV administration of 118 of Optiray 320, CT angiogram of the head and neck w as performed from the aortic arch to the vertex. Images are reviewed in the axial, sagittal, and elisabeth nal planes. 3-D MIPS images are created and assessed. IV contrast was administered without complicati on. All measurements were calculated based on NASCET criteria. A dose lowering technique was utilize d adhering to the principles of ALARA. CT DOSE: 584.76 mGy.cm FINDINGS: Brain parenchyma: There is age-related involutional change noting mild subcortical and periventricula r microangiopathic disease. There is no hemorrhage, mass effect, or evidence of acute territorial isc hemia by CT criteria. A 2.0 cm enhancing lesion is identified in the right cerebellopontine angle and extends into the right internal auditory canal. This was also seen on a previous MRI and likely repr esents a meningioma or cystic schwannoma. The ventricles, sulci, and cisterns are normal in configura tion. Kendrick-white matter differentiation is preserved. No extra-axial fluid collection is seen. Thoracic aorta: There is atherosclerotic calcification of the thoracic aorta. Visualized portions of the thoracic aorta are normal in caliber. The aortic arch demonstrates standard 3-vessel anatomy. Right carotid arterial system: The right common carotid artery is widely patent, as are the right int ernal and external carotid arteries. Atherosclerotic plaque is noted in the carotid bulb. Left carotid arterial system: The left common carotid artery is widely patent, as are the left internal review and audit compliance al and external carotid arteries. Atherosclerotic plaque is noted in the carotid bulb. Vertebral arteries: The vertebral arteries are widely patent and codominant. The right vertebral samuel ry courses anterior to the transverse foramina in the lower cervical region. Subclavian arteries: Widely patent bilaterally. Intracranial vasculature: There is atherosclerotic calcification of the cavernous carotid and vertebr al arteries. The internal carotid arteries are patent at the skull base, as are the anterior and midd le cerebral arteries bilaterally. The vertebrobasilar system and posterior cerebral arteries are wide ly patent. The vertebral arteries are codominant. There is no aneurysm, high-grade stenosis, or focal vessel cut off seen throughout the intracranial circulation. Jugular veins: Patent bilaterally. Dural sinuses: Patent. Lung apices: Intralobular septal thickening is noted in the upper lobes. Soft tissues: The visualized pharyngeal soft tissues are normal in appearance noting angiographic pha se technique. The oropharyngeal airway appears widely patent. The right lobe of the thyroid gland is enlarged and heterogeneous, extending into the superior mediastinum. The appearance is typical for go iter. A nodule in the right lobe measures up to 3.5 cm. This is unchanged from previous examinations. The salivary glands are normal in appearance. No cervical lymphadenopathy is seen. Skeletal structures: The skeletal structures are osteopenic. The calvarium appears intact. The cervic al spine is maintained noting multilevel spondylosis. No lytic or blastic lesion is seen. Sinuses and mastoids: The paranasal sinuses are clear. The mastoid air cells are well pneumatized. IMPRESSION: 1. There is no hemorrhage, mass effect, or evidence of acute territorial ischemia by CT criteria noti ng angiographic phase technique. 2. A 2.0 cm enhancing lesion in the right cerebellopontine angle has been seen on prior examinations and likely represents a meningioma versus acoustic schwannoma. 3. Unremarkable CT angiogram of the brain. 4. Unremarkable CT angiogram of the neck. 5. Intralobular septal thickening is noted in the upper lobes. Correlate clinically for evidence of c ongestive failure. ACT 112: Negative or not required by law. Electronically signed by: Keith Grace M.D. 02/17/2020 7:23 AM
[2020-02-17 07:28] LABS: Basophils # (auto) 0.01 K/uL (0-0.2); Basophils % (auto) 0.2 %; Eosinophils # (auto) 0.16 K/uL (0-0.5); Eosinophils % (auto) 3.1 %; Hematocrit (blood only) 37.8 % (37-47); Hemoglobin 12.4 g/dL (12.0-16.0); Immature Granulocytes # (auto) 0.01 K/uL (0.00-0.02); Immature Granulocytes % (auto) 0.2 %; Lymphocytes # (auto) 1.17 K/uL (1.2-3.4); Mean Corpuscular Hgb Conc 32.8 g/dL (32-36); Mean Corpuscular Volume 88.3 fL (80-100); Mean Platelet Volume 10.5 fL (7.4-10.4); Monocytes # (auto) 0.48 K/uL (0.11-0.59); Monocytes % (auto) 9.4 %; Neutrophils # (auto) 3.25 K/uL (1.4-6.5); Neutrophils % (auto) 64.1 %; Platelet Count 213 K/uL (130-400); RDW Coefficient of Variation 15.4 % (11.5-14.5); RDW Standard Deviation 48.9 fL (36.4-46.3); Red Blood Count 4.28 M/uL (4.2-5.4); White Blood Count 5.08 K/uL (4.8-10.8)
--- NOTE | 2020-02-17 07:45 | XRay Report ---
XR chest 1V portable CLINICAL HISTORY: Atypical chest pain. Possible pneumonia COMPARISON STUDY: 11/08/2019 FINDINGS: The heart remains enlarged. There is no focal pulmonary consolidation. There are no pleural effusions. There is an old right-sided rib fracture. Mild vascular/interstitial prominence, likely r elates to technical factors given the patient's body habitus. This remains unchanged.[ IMPRESSION: No active disease in the chest. ACT 112: Negative or not required by law. Electronically signed by: Armond Parson M.D. 02/17/2020 7:44 AM
[2020-02-17 07:52] LABS: BUN Creatinine Ratio 23.7 (10-20); Calcium 8.8 mg/dl (8.5-10.1); Est GFR (African American) 99.6; Potassium 3.7 mmol/L (3.5-5.1)
[2020-02-17] MEDS: ATORVASTATIN 10 MG TAB PO SCH (08:24)
[2020-02-17] MEDS: ASPIRIN 81 MG ECTAB PO SCH (08:24)
[2020-02-17] MEDS: CALCIUM 600MG + VIT D 400 IU TAB PO SCH (08:25)
[2020-02-17] MEDS: CARBIDOPA/LEVODOPA 25/100MG TAB PO SCH ×4 (08:25→20:20)
[2020-02-17] MEDS: SACCHAROMYCES BOULARDII 250 MG CAP PO SCH ×2 (08:26→20:19)
[2020-02-17] MEDS: GABAPENTIN 300 MG CAP PO SCH ×2 (08:29→20:19)
[2020-02-17] MEDS: DICLOFENAC SOD 1% GEL 100 GM TUBE EXT SCH ×2 (08:29→20:23)
[2020-02-17] MEDS: PIPERACILLIN/TAZOBACTAM 4.5 GM in DEXTROSE 5% 100 ML IV SCH ×2 (08:54→16:33)
[2020-02-17] MEDS ORDERED: INSULIN LISPRO 75%/25% SC SCH (09:00)
[2020-02-17 09:02] LABS: Estimated Average Glucose 157 mg/dl; Hemoglobin A1C 7.1 % (4.5-5.6)
--- NOTE | 2020-02-17 09:13 | Neurology Consultation ---
Date of Consultation February 17, 2020 History of Present Illness Attending Physician: Tc Dickey MD History of Present Illness Lainey Lainez is a 74 yo woman w/ PMH of Afib on xarelto, anxiety, Allergies Allergy/AdvReac Type Severity Reaction Status Date / Time benztropine Allergy Unknown UNKNOWN Verified 02/07/20 17:18 citalopram Allergy Unknown UNKNOWN Verified 02/07/20 17:18 simvastatin Allergy Unknown UNK Verified 02/07/20 17:18 sulindac Allergy Unknown UNKNOWN Verified 02/07/20 17:18 doxycycline AdvReac Mild NAUSEA Verified 02/07/20 17:18 minocycline AdvReac Mild NAUSEA Verified 02/07/20 17:18 Home Medications Home Medications Medication Instructions Recorded Confirmed Type aspirin 81 mg tablet,delayed 81 mg PO DAILY tab 01/19/19 02/16/20 History release atorvastatin 10 mg tablet 10 mg PO DAILY tab 01/19/19 02/16/20 History calcium carbonate 500 mg (1,250 1 tab PO DAILY tab 01/19/19 02/16/20 History mg)-vitamin D3 200 unit tablet gabapentin 300 mg capsule 300 mg PO QAM cap 01/19/19 02/16/20 History bumetanide See Rx Instructions .ROUTE 08/31/19 02/16/20 Rx .COMPLEX #30 tab Xarelto 20 mg PO QPM 11/08/19 02/16/20 History lorazepam 0.5 mg PO BID PRN 11/08/19 02/16/20 History insulin lispro 100 unit/mL See Rx Instructions SQ UD #9 vial 01/08/20 02/16/20 Rx subcutaneous solution Saccharomyces boulardii [Florastor] 250 mg PO BID #20 cap 02/07/20 02/16/20 Rx carbidopa-levodopa 2 tab PO QID 02/07/20 02/16/20 History cephalexin 500 mg PO QID 02/16/20 02/16/20 History diclofenac sodium 1 applic TOPICAL BID 02/16/20 02/16/20 History gabapentin 600 mg PO HS 02/16/20 02/16/20 History Patient History Medical History Alteration in tactile sense Anxiety CHF (congestive heart failure) Diabetes GERD (gastroesophageal reflux disease) History of TIA (transient ischemic attack) Hypertension Mitral valve disorder Obesity Parkinson disease Permanent atrial fibrillation Surgical History H/O breast biopsy History of eye surgery Knee joint replacement status S/P appendectomy S/P cholecystectomy Family History Mother Colorectal cancer Congestive heart failure Diabetes Hypertension Brother Colorectal cancer Congestive heart failure Sister Cancer Unknown Pancreatic cancer Social History Smoking Status: Never smoker Second Hand Exposure: No; Do You Dip or Chew Tobacco: No; Tobacco Cessation Education Requested by Patient: No Hx Alcohol Use: Yes Alcohol type: wine Hx Substance Use: No Preferred Language: Hungarian Communication Ability: Effective Meat Cutter Required: No Beliefs That Will Affect Care: None marital status: Current Living Situation: Alone Other Information That Helps Us Care for You: No Feels Safe at Home: Yes Safety Concerns: Feels Safe At This Time Results & Data ([facility]) Vital Signs (Past 12 Hours) Vital Signs Temp Pulse Pulse Resp BP BP Pulse Ox 02/17/20 07:20 36.6 C 74 17 158/81 H 97 02/17/20 04:45 36.5 C 68 20 127/75 97 02/17/20 01:13 36.4 C L 66 20 149/71 H 97 02/17/20 00:35 59 L 18 155/75 H 95 02/16/20 21:36 63 16 97 02/16/20 21:30 72 17 149/78 H 97 PG Care Time/CCT Total # of Minutes Spent Total Time Spent with Patient: Total time spent is greater than 50% in coordination of care (as documented) at patient's floor/unit and/or counseling patient: Coding
--- NOTE | 2020-02-17 09:20 | Pharmacy Report ---
Glycemic Control Consultation - Date of Service February 17, 2020 - Scope Scope: Glycemic Pharmacist consulted for glycemic control and to write orders per [facility] inpatient glycemic control protocol. - Objective Weight: 99.365 kg Accuchecks BSG (last 24hrs): 02/16/20 02/17/20 02/17/20 20:15 03:16 06:58 Glucose 128 H 202 H POC Glucose 187 H 02/17/20 07:23 Glucose POC Glucose 199 H Laboratory Data (last 24hrs): 02/16/20 02/17/20 20:15 06:58 Potassium 3.9 3.7 Carbon Dioxide 28 26 Anion Gap 6.0 7.0 Creatinine 0.86 0.70 Est Cr Clr Drug Dosing 67.9 82.0 HbA1c: Hemoglobin A1c 7.1 % (4.5-5.6) H 02/17/20 06:58 - Recent Pertinent Medications Outpatient Anti-diabetic Regimen: * Humalog pump - total 100-120units/day * A1c = 7.1% Risk Factors for Insulin Resistance: * Infection: Daptomycin + Zosyn * Diet: Type 2 DM - Assessment & Plan Assessment & Plan: ASSESSMENT: * 74 yo female, PMH TIA, complicated migraines, DM, HTN, Afib, admitted with expressive aphasia and R upper extremity numbness. Symptoms resolved by the time evaluation. Started on IV antibiotics for LE cellulitis. * Insulin pump discontinued for admission, will use basal bolus insulin therapy based on home dose at home and titrate to goal blood sugar. PLAN FOR INPATIENT GLYCEMIC CONTROL: * Basal insulin * Lantus 25 units SQ BID (may increase to 30 units BID if blood sugars trend up, and start earlier than HS as first dose given at 0300 today) * Bolus insulin * NovoLog per scale ACHS or Q6hrs while NPO * Goal Range: Low 110 mg/dL - High 140 mg/dL * Correction Factor: 15 mg/dL/unit * Nutritional / Prandial insulin per carb ratio of 1 unit per 5 grams CHO consumed * Please note that the plan above was derived based on current level of insulin resistance and hospital stress. These recommendations are appropriate for inpatient admission only. Plan of care upon discharge will need to be reassessed to avoid potential outpatient hypo/hyperglycemia. Thank you.
[2020-02-17] MEDS ORDERED: LORazepam 0.5 MG TAB PO STA (11:53)
[2020-02-17] MEDS: INSULIN GLARGINE SOLOSTAR 100 UNITS/ML 3 ML PEN SC SCH ×2 (12:00→20:32)
--- NOTE | 2020-02-17 13:07 | Electrocardiogram Report ---
Test Reason : Blood Pressure : / mmHG Vent. Rate : 066 BPM Atrial Rate : 068 BPM P-R Int : 000 ms QRS Dur : 088 ms QT Int : 400 ms P-R-T Axes : 000 -47 040 degrees QTc Int : 419 ms Poor data quality, interpretation may be adversely affected Atrial fibrillation Low voltage QRS Left anterior fascicular block Abnormal ECG When compared with ECG of 08-NOV-2019 13:18, T wave inversion no longer evident in Lateral leads Confirmed by Magadleno Moody ([id number]) on 02/17/2020 1:06:58 PM Referred By: REFERRED SELF Confirmed By:Magdaleno Moody
[2020-02-17] MEDS ORDERED: GADOBUTROL 65ML VIAL IV ONE (13:09)
--- NOTE | 2020-02-17 13:35 | Magnetic Resonance Report ---
MRI OF THE BRAIN COMBO CLINICAL HISTORY: Strokelike symptoms. COMPARISON STUDY: CT of the brain dated 02/08/2020. MRI of the brain dated 12/26/2018. TECHNIQUE: MRI of the brain was performed utilizing various T1 and T2-weighted sequences in the axial , sagittal, and coronal planes. Contrast-enhanced sequences were acquired following the administratio n of 10 cc of Gadavist. The examination is modestly degraded by motion artifact. FINDINGS: Brain parenchyma: There is age-related involutional change noting mild subcortical and periventricula r microangiopathic disease. There is no hemorrhage or midline shift. There is no restricted diffusion to suggest acute ischemia. There is a 2.0 cm round homogeneously enhancing mass lesion in the cerebe llopontine angles seen on image #16 of the postcontrast sequence. This extends into the right interna l auditory canal is unchanged from previous. This causes minimal localized mass effect. No additional enhancing lesion is seen on the postcontrast images. Kendrick-white matter differentiation is preserved. No extra-axial fluid collection is seen. The cerebellar tonsils are normal in configuration. Ventricles, sulci, and cisterns: Prominent secondary to involutional change. Pituitary and sella: Unremarkable. Intracranial vasculature: Normal flow voids are maintained at the skull base. Orbits: The bony orbits are grossly intact. Postoperative change is noted in the left lobe. Sinuses and mastoids: Clear. Calvarium: Unremarkable. Cervical cord: Partially visualized cervical spinal cord is normal in morphology and signal intensity . IMPRESSION: 1. No acute intracranial abnormality. 2. A 2 cm enhancing lesion in the right cerebellopontine angle is unchanged from prior examinations. This likely represents a meningioma versus acoustic schwannoma. ACT 112: Negative or not required by law. Electronically signed by: Keith Grace M.D. 02/17/2020 1:33 PM
--- NOTE | 2020-02-17 14:34 | Progress Notes ---
DATE: 02/17/2020 REASON FOR CONSULTATION: Transient neurologic symptoms. HISTORY OF PRESENT ILLNESS: The patient is a 74-year-old right-handed female who is followed by Dr. Wen for Parkinson's disease. She also has a history of diabetic neuropathy and a remote history of a transient ischemic attack in 2004. On this background, the patient has been in her usual state of health. She was speaking to her sister yesterday and she noted some nausea, some irritability and sparkling geometric figures which were mostly reddish in her vision. She briefly noted some tingling in her right hand and forearm. There was some slurred speech and word finding difficulty. These neurologic symptoms lasted about 4 hours and were accompanied by a non-bothersome pressure in the head. The symptoms have resolved. The patient has been diagnosed with complicated migraine in the past. It sounds like these episodes have not necessarily been stereotyped or accompanied by headache. The patient indicates she has never had scintillating visual phenomenon before. She did have one episode which was attributed to complicated migraine, which consisted of difficulty recognizing people, some confusion and some amnesia lasting several hours. Other episodes include slurred speech and word finding difficulty with or without headache. In 2004, she had an episode of right hemiparesis with some residual, although she calls that a transient ischemic attack. Since that time, she has been on aspirin and Plavix. Plavix was discontinued within the year, when atrial fibrillation was found. She continued on aspirin and is on Xarelto. She fell about a month ago, tripping on something and hit her head. There was a significant amount of bleeding at the time. She was last hospitalized in our facility for cellulitis of the right foot about 10 days ago. She is currently on intravenous antibiotics. She has otherwise been well. No fevers, chills, sweats, weight loss, cough, shortness of breath or palpitations. None of her medicines were recently new or changed in dose. CT of the head, which I have reviewed, shows no acute abnormality. CTA of the head and neck show a 2-cm enhancing lesion in the right cerebellar pontine angle likely representing meningioma versus acoustic schwannoma. CTA of head and neck were unremarkable. Echocardiography; left ventricle grossly normal size, mild concentric LVH, EF 60-65%, aortic valve sclerosis, mild right ventricular systolic pressure normal, bubble study completed. No obvious right to left shunt. The left atrium is mildly dilated. Electrocardiogram shows atrial fibrillation, low voltage QRS, left anterior fascicular block. LABORATORY DATA: Notable for a normal white count, H and H, platelet count. INR 1.3, PTT 34.7. Chemistry profile notable for BUN of 23, glucose of 128, LDL cholesterol 32. PAST MEDICAL HISTORY: Anxiety, congestive heart failure, diabetes, reflux, history of transient ischemic attack by report, complicated migraine, mitral valve disorder, obesity, Parkinson's disease, atrial fibrillation. PAST SURGICAL HISTORY: Breast biopsy, eye surgery, knee joint replacement, appendectomy, cholecystectomy. FAMILY HISTORY: Diabetes, hypertension, congestive heart failure colorectal cancer. SOCIAL HISTORY: Nonsmoker, nondrinker. The patient lives alone. ALLERGIES: BENZTROPINE, CELEXA, SIMVASTATIN, SULINDAC, DOXYCYCLINE, MINOCIN. HOME MEDICATIONS: Aspirin, atorvastatin, calcium carbonate, bumetanide, Xarelto, lorazepam, insulin, Florastor, carbidopa-levodopa 2 tablets 4 times a day, cephalexin, diclofenac and gabapentin 600 mg at bedtime. PHYSICAL EXAMINATION: GENERAL: The patient is awake and alert, normal speech and language. Affect appropriate. Repetitions, naming, and 3-step commands are normal. There is no right/left confusion. VITAL SIGNS: Temperature 36.6, 78, 18, 148/86, 97% on room air. NECK: There are no carotid bruits. HEART: No heart murmurs. Heart is regular rate and rhythm. NEUROLOGIC: The patient has an episodic resting tremor, right greater than left with some cogwheeling on the right. There is some jaw tremor, but there also appears to be some oral buccal dyskinesias. There is some mild left ptosis. Visual godoy are somewhat impaired in the left, but are full on the right. Motility is normal. There is normal facial symmetry, normal facial sensation. Tongue is midline. Uvula elevates symmetrically. Motor 5/5, no drift. Normal rapid alternating movements. Absent ankle jerks, downgoing toes. Kikqia-tl-nlpm and zeco-nr-lycz is normal. Vibration is present at the toes. Light touch is symmetric bilaterally. Gait was not tested. An area of ecchymosis was noted over the right posterior upper arm and the right leg is larger in circumference than the left. IMPRESSION: Complicated migraine versus transient ischemic attack, seizures within the differential, although I do not think this episode is particularly sounds like seizure and suspect that she has been worked up in the past for the same. PLAN: 1. I think we will use the MRI as a guide given that these neurologic symptoms lasted for hours. If the MRI shows an acute area of ischemia, would likely change her antiplatelet therapy, perhaps increasing the dose of aspirin and continuing Xarelto. Good control of diabetes and blood pressure over time. If the imaging study is negative, then I would consider raising the dose of gabapentin using it for migraine prophylaxis. 2. Parkinson's disease, query oral buccal dyskinesias. No change in medication. We will follow with you. EMA
--- NOTE | 2020-02-17 14:37 | History & Physical Bridge Note ---
Date of Service February 17, 2020 History & Physical Bridge Note Patient seen and examined today. Discussed with Dr. Clark. Most likely seems to be a complex migraine given her aura around the time of the event. - Will get MRI to check for stroke. Dr. Clark will see her in the AM. - Continue abx for cellulitis
--- NOTE | 2020-02-17 19:52 | Billing Data ---
Date of Service February 17, 2020 Coding Level of Care Code 33166 OBS Care - Level 3
[2020-02-17] MEDS: RIVAROXABAN 20 MG TAB PO SCH (20:19)
[2020-02-18] MEDS: DAPTOmycin 300 MG in SYRINGE 0 ML IV SCH (01:07)
[2020-02-18] MEDS: PIPERACILLIN/TAZOBACTAM 4.5 GM in DEXTROSE 5% 100 ML IV SCH ×4 (01:07→23:19)
[2020-02-18 07:25] LABS: Basophils # (auto) 0.01 K/uL (0-0.2); Basophils % (auto) 0.2 %; Eosinophils # (auto) 0.17 K/uL (0-0.5); Eosinophils % (auto) 3.6 %; Hematocrit (blood only) 38.6 % (37-47); Hemoglobin 12.6 g/dL (12.0-16.0); Immature Granulocytes # (auto) 0.01 K/uL (0.00-0.02); Immature Granulocytes % (auto) 0.2 %; Lymphocytes # (auto) 1.55 K/uL (1.2-3.4); Lymphocytes % (auto) 32.6 %; Mean Corpuscular Hgb Conc 32.6 g/dL (32-36); Mean Corpuscular Volume 88.9 fL (80-100); Mean Platelet Volume 10.3 fL (7.4-10.4); Monocytes # (auto) 0.39 K/uL (0.11-0.59); Monocytes % (auto) 8.2 %; Neutrophils # (auto) 2.63 K/uL (1.4-6.5); Neutrophils % (auto) 55.2 %; Platelet Count 221 K/uL (130-400); RDW Coefficient of Variation 15.5 % (11.5-14.5); RDW Standard Deviation 49.8 fL (36.4-46.3); Red Blood Count 4.34 M/uL (4.2-5.4); White Blood Count 4.76 K/uL (4.8-10.8)
[2020-02-18 07:58] LABS: BUN Creatinine Ratio 18.4 (10-20); Creatinine Clr Calc Pharmacy 73.6 ml/min; Est GFR (African American) 87.4; Est GFR (Non-African American) 75.4; Potassium 3.7 mmol/L (3.5-5.1)
[2020-02-18] MEDS: INSULIN ASPART 100 UNITS/ML 3 ML PEN SC SCH ×4 (08:22→20:22)
[2020-02-18] MEDS: INSULIN GLARGINE SOLOSTAR 100 UNITS/ML 3 ML PEN SC SCH ×2 (08:24→20:19)
[2020-02-18] MEDS: CALCIUM 600MG + VIT D 400 IU TAB PO SCH (08:25)
[2020-02-18] MEDS: ASPIRIN 81 MG ECTAB PO SCH (08:25)
[2020-02-18] MEDS: SACCHAROMYCES BOULARDII 250 MG CAP PO SCH ×2 (08:28→20:23)
[2020-02-18] MEDS: DICLOFENAC SOD 1% GEL 100 GM TUBE EXT SCH ×2 (08:29→20:24)
[2020-02-18] MEDS: ATORVASTATIN 10 MG TAB PO SCH (08:29)
[2020-02-18] MEDS: GABAPENTIN 300 MG CAP PO SCH ×2 (08:29→20:18)
[2020-02-18] MEDS: CARBIDOPA/LEVODOPA 25/100MG TAB PO SCH ×4 (08:29→20:18)
--- NOTE | 2020-02-18 13:35 | Progress Notes ---
DATE: 02/18/2020 SUBJECTIVE: I am seeing the patient in followup of an episode of scintillating visual phenomenon which was geometric and red with some mild nausea and word finding difficulty, which lasted for 4 hours. This was accompanied by vertex nonthrobbing headache. Her MRI of the brain shows no acute abnormality. It does show a stable right CP angle mass measuring 2 cm, likely representing a meningioma versus an acoustic schwannoma. The patient has not had any new neurologic symptoms. She remains on aspirin and Xarelto. PHYSICAL EXAMINATION: She is awake and alert. There is some what appeared to be oral buccal dyskinesias. Normal motility, visual godoy, facial symmetry. Symmetric upper and lower extremity strength, some component of resting tremor. IMPRESSION: This is a complicated patient with multiple vascular risk factors. She gives a prior history of what is thought to be complicated migraine or confusional migraine. These episodes have not necessarily been stereotyped, although they fall along a continuum of fairly consistent symptoms including some confusion and some language dysfunction. I favor that this episode was a confusional or complicated migraine, because of the geometric visual phenomenon at the onset mild accompanying nausea and mild headache and negative MRI of the brain. I would recommend increasing her morning dose of gabapentin. She apparently has nonthrobbing headache for more than 1 per week. She is already on gabapentin for nerve pain. Consider increasing the gabapentin from 300 mg in the morning and 600 mg at night to 600 mg in the morning and 600 mg at night. I have no objection to the patient being discharged today, if she is still an inpatient tomorrow, it may be reasonable to complete her workup with an EEG. She indicates that she believes she has had one done, but having reviewed her records, I do not see evidence that that is the case at least in our outpatient record. Additionally, when I reviewed Dr. Wen's care of this patient from [id number], I do not see any discussion or evaluation of the history of confusional migraine or complicated migraine. The patient indicates this was a diagnosis made by Dr. Gage. The patient should followup post-discharge within 3-[address] Wen who follows her for her Parkinson's disease.
--- NOTE | 2020-02-18 14:28 | Pharmacy Report ---
Pharmacy Glycemic Short Note 2 - Date of Service February 18, 2020 - Glycemic Short BSG Results (Last 24 hours): 02/17/20 02/17/20 02/18/20 16:43 20:25 07:13 Glucose 85 POC Glucose 175 H 179 H 02/18/20 02/18/20 07:40 11:53 Glucose POC Glucose 80 177 H OUTPATIENT ANTIDIABETIC REGIMEN: * Humalog pump - total 100-120units/day * A1c = 7.1% Risk Factors for Insulin Resistance: * Infection: Daptomycin + Zosyn * Diet: Type 2 DM ASSESSMENT: 02/18/20: * Fasting BSG of 85 mg/dL is slightly below goal. Lainey Fernandes technically received three doses of Lantus yesterday (25 units @ 0318 and then 30 units with lunch and 30 units at bedtime). I suspect fasting will improve tomorrow now that Lantus administration is back to normal BID times. I will change her scheduled dose of 30 units BID to a scale (25-30 units) that way patient will received less if BSGs continue to trend downward. * Post prandial BSGs are slightly above goal. I will tighten carb coverage. 02/17/20: * 74 yo female, PMH TIA, complicated migraines, DM, HTN, Afib, admitted with expressive aphasia and R upper extremity numbness. Symptoms resolved by the time evaluation. Started on IV antibiotics for LE cellulitis. * Insulin pump discontinued for admission, will use basal bolus insulin therapy based on home dose at home and titrate to goal blood sugar. PLAN FOR INPATIENT GLYCEMIC CONTROL: * Basal insulin * Lantus 25-30 units SQ BID (30 units for BSG 140 mg/dL or more) * Bolus insulin - tighten carb coverage * NovoLog per scale ACHS or Q6hrs while NPO * Goal Range: Low 110 mg/dL - High 140 mg/dL * Correction Factor: 15 mg/dL/unit * Nutritional / Prandial insulin per carb ratio of 1 unit per 4 grams CHO consumed PLAN FOR DISCHARGE: * Most recent A1c of 7.1% is improved compared to A1c of 8.6% in September * Suspect patient will be able to resume her insulin pump on discharge and continue follow up/adjustments per outpatient provider.
[2020-02-18] MEDS: RIVAROXABAN 20 MG TAB PO SCH (20:21)
--- NOTE | 2020-02-18 22:03 | Hospitalist Progress Note ---
Date of Service February 18, 2020 Assessment & Plan (1) Expressive aphasia: Mrs. Ramirez is a 74 yo woman with a PMHx of TIA, complicated migraines, insulin dependent diabetes mellitus, HTN and permanent Afib on Xarelto who presents for evaluation of confusion, expressive aphasia and R upper extremity numbness. Symptoms resolved by the time evaluation. - etiology unknown, although ischemic stroke vs. TIA vs. complicated migraine are atop the differential - patient has several risk factors for vascular disease: HTN, diabetes, Afib - given transient nature of symptoms, TIA and complicated migraines are felt > ischemic stroke - patient denies headache, although she reports history of complicated migraine without associated head pain - Head CT neg for acute bleed - complete stroke work up ordered (Head and Neck CTA, Brain MRI, TTE, fasting lipid panel and Hb1c). - Neurology consult ordered - will increase gabapentin in AM, and will consider ordering an EEG. (2) Cellulitis: - Right LE erythematous, warm and tender - not improving on PO Keflex - given hx of diabetes, we will add pseudomonal coverage with zosyn - Stopped dapto due to MRSA swab being negatve. (3) Hematoma of right lower leg: - likely secondary to trauma (playful accident with granddaughter) - improving since onset - no active management - venous duplex on 02/06 negative for DVT (4) Type 2 diabetes mellitus with retinopathy, with long-term current use of insulin: - most recent A1c /2019 above goal at 8.6 - repeat level in AM - continue home insulin regimen - continue ASA 81mg, daily and Atorvastatin 10mg, daily - follows with agricultural extension educator (5) Diastolic CHF: - continue home dose bumex - does not appear to be on a epnnie toshia or MARCO (would not add in setting of stroke work up - want to allow for permissive HTN) (6) Hypertension: - BP 155/75 - does not appear to be on any home medications - would recommend starting MARCO/ARB given concurrent diabetes diagnosis (however holding off now given current stroke work up - want to allow for permissive HTN) (7) Permanent atrial fibrillation: - rate controlled without medication - anticoagulated on Xarelto - TTE in AM to assess for thrombus (8) Parkinson disease: - continue home dose carbidopa-levodopa Dispo: PCU/Tele DVT ppx: on Xarleto Diet: Heart healthy, DM 2 Code: full (2) Cellulitis: (3) Hematoma of right lower leg: (4) Type 2 diabetes mellitus with retinopathy, with long-term current use of insulin: (5) Diastolic CHF: (6) Hypertension: (7) Permanent atrial fibrillation: (8) Parkinson disease: Admission and Anticipated Discharge Date Admission Date: February 16, 2020 Subjective 74 yo female reports no new symptoms. She states she feels weak and does not feel strong enough to go home. She is awaiting placement. Review of Systems Review of Systems: All systems reviewed & are unremarkable except as noted in HPI & below Physical Exam Physical Exam: Constitutional: WD/WN, vitals as above cooperative Eyes: PERRL, conjunctivae normal, anicteric sclerae normal accommodation and EOM intact bilaterally; no nystagmus Patient blinks throughout exam ENMT: external ear and nose normal, oropharynx normal Throat: uvula midline Neck: normal visual inspection and trachea midline Respiratory: normal respiratory effort, lungs clear to auscultation Cardiovascular: Rate/Rhythm: regular rate and + irregularly irregular Heart Sounds: normal S1 and normal S2; no murmur Vessels: radial pulses present Gastrointestinal (Abdomen): normal bowel sounds, soft, nontender, no hepatosplenomegaly Skin: + decreased ecchymosis (R LE ), + erythema (R LE, confluent ) and + nails dystrophic Neurologic: CN's II-XI intact bilaterally, moves all extremities and awake; no focal motor deficits Speech / Cognition: normal speech, no expressive aphasia and no receptive aphasia Motor/Sensory: no tremor, no pronator drift and no sensory deficit Cranial Nerves: normal facial strength, tongue midline and able to rotate head bilaterally Coordination: normal eakoot-sm-qzzc test Psychiatric: A+Ox3, euthymic affect Results & Data Results & Data ([facility]) Vital Signs (Past 12 Hours) Vital Signs Temp Pulse Resp BP Pulse Ox 02/18/20 19:08 36.7 C 82 18 150/72 H 95 02/18/20 15:20 36.5 C 65 18 155/70 H 95 02/18/20 11:23 36.3 C L 60 18 128/73 97 PG Care Time/CCT Total # of Minutes Spent Total Time Spent with Patient: Total time spent is greater than 50% in coordination of care (as documented) at patient's floor/unit and/or counseling patient: Coding Level of Care Code 38577 Subseq Obs Care Lvl 3 Diagnoses Expressive aphasia R47.01 Cellulitis L03.90 Hematoma of right lower leg S80.11XA Type 2 diabetes mellitus with retinopathy, with long-term current use of insulin E11.319; Z79.4 Diastolic CHF I50.30 Hypertension I10 Permanent atrial fibrillation I48.21 Parkinson disease G20
[2020-02-19 07:07] LABS: Basophils # (auto) 0.01 K/uL (0-0.2); Basophils % (auto) 0.2 %; Eosinophils # (auto) 0.14 K/uL (0-0.5); Eosinophils % (auto) 2.8 %; Hematocrit (blood only) 37.5 % (37-47); Hemoglobin 12.3 g/dL (12.0-16.0); Immature Granulocytes # (auto) 0.01 K/uL (0.00-0.02); Immature Granulocytes % (auto) 0.2 %; Lymphocytes # (auto) 1.04 K/uL (1.2-3.4); Mean Corpuscular Hemoglobin 29.4 pg (25-34); Mean Corpuscular Hgb Conc 32.8 g/dL (32-36); Mean Corpuscular Volume 89.5 fL (80-100); Mean Platelet Volume 10.3 fL (7.4-10.4); Monocytes # (auto) 0.48 K/uL (0.11-0.59); Monocytes % (auto) 9.7 %; Neutrophils # (auto) 3.27 K/uL (1.4-6.5); Neutrophils % (auto) 66.1 %; Platelet Count 221 K/uL (130-400); RDW Coefficient of Variation 15.5 % (11.5-14.5); RDW Standard Deviation 50.5 fL (36.4-46.3); Red Blood Count 4.19 M/uL (4.2-5.4); White Blood Count 4.95 K/uL (4.8-10.8)
[2020-02-19 07:45] LABS: BUN Creatinine Ratio 20.2 (10-20); Calcium 8.9 mg/dl (8.5-10.1); Est GFR (African American) 90.2; Est GFR (Non-African American) 77.8; Potassium 3.7 mmol/L (3.5-5.1)
[2020-02-19] MEDS: PIPERACILLIN/TAZOBACTAM 4.5 GM in DEXTROSE 5% 100 ML IV SCH (08:16)
[2020-02-19] MEDS: SACCHAROMYCES BOULARDII 250 MG CAP PO SCH (08:17)
[2020-02-19] MEDS: DICLOFENAC SOD 1% GEL 100 GM TUBE EXT SCH (08:17)
[2020-02-19] MEDS: CARBIDOPA/LEVODOPA 25/100MG TAB PO SCH ×2 (08:17→11:46)
[2020-02-19] MEDS: ASPIRIN 81 MG ECTAB PO SCH (08:18)
[2020-02-19] MEDS: CALCIUM 600MG + VIT D 400 IU TAB PO SCH (08:18)
[2020-02-19] MEDS: GABAPENTIN 300 MG CAP PO SCH (08:18)
[2020-02-19] MEDS: ATORVASTATIN 10 MG TAB PO SCH (08:19)
--- NOTE | 2020-02-19 08:41 | Pharmacy Report ---
Pharmacy Glycemic Short Note 2 - Date of Service February 19, 2020 - Glycemic Short BSG Results (Last 24 hours): 02/18/20 02/18/20 02/18/20 11:53 16:18 20:17 Glucose POC Glucose 177 H 180 H 157 H 02/19/20 02/19/20 02/19/20 06:47 07:52 07:53 Glucose 62 L POC Glucose 69 L* 75 OUTPATIENT ANTIDIABETIC REGIMEN: * Humalog pump - total 100-120units/day * A1c = 7.1% Risk Factors for Insulin Resistance: * Infection: Daptomycin + Zosyn * Diet: Type 2 DM ASSESSMENT: 02/19/20: * Patient received 100 units of insulin yesterday * 60 units of basal and 40 units of prandial/correctional * This is in line with her insulin needs per insulin pump settings * BSGs of 85, 177, 180, and 157 mg/dL yesterday * Fasting BSG this morning of 69 mg/dL -> will give 25 units of Lantus this morning (~80% of previous day's AM dose) * Carb coverage tightened yesterday - will continue with this as BSGs were well- controlled throughout the day 02/18/20: * Fasting BSG of 85 mg/dL is slightly below goal. Lainey Fernandes technically received three doses of Lantus yesterday (25 units @ 0318 and then 30 units with lunch and 30 units at bedtime). I suspect fasting will improve tomorrow now that Lantus administration is back to normal BID times. I will change her scheduled dose of 30 units BID to a scale (25-30 units) that way patient will received less if BSGs continue to trend downward. * Post prandial BSGs are slightly above goal. I will tighten carb coverage. 02/17/20: * 74 yo female, PMH TIA, complicated migraines, DM, HTN, Afib, admitted with expressive aphasia and R upper extremity numbness. Symptoms resolved by the time evaluation. Started on IV antibiotics for LE cellulitis. * Insulin pump discontinued for admission, will use basal bolus insulin therapy based on home dose at home and titrate to goal blood sugar. PLAN FOR INPATIENT GLYCEMIC CONTROL: * Basal insulin - decrease * Lantus 25 units SC this morning * Lantus scale HS (25-30 units -> see EHR for details) * -scale set up so patient is more likely to receive 25 units * Bolus insulin - continue * NovoLog per scale ACHS or Q6hrs while NPO * Goal Range: Low 110 mg/dL - High 140 mg/dL * Correction Factor: 15 mg/dL/unit * Nutritional / Prandial insulin per carb ratio of 1 unit per 4 grams CHO consumed PLAN FOR DISCHARGE: * Most recent A1c of 7.1% is improved compared to A1c of 8.6% in September * Suspect patient will be able to resume her insulin pump on discharge and continue follow up/adjustments per outpatient provider.
[2020-02-19] MEDS: INSULIN ASPART 100 UNITS/ML 3 ML PEN SC SCH ×2 (08:54→11:45)
[2020-02-19] MEDS: INSULIN GLARGINE SOLOSTAR 100 UNITS/ML 3 ML PEN SC SCH (09:10)
[2020-02-19] MEDS ORDERED: GABAPENTIN 300 MG CAP PO ONE (12:09)
[2020-02-20] MEDS ORDERED: GABAPENTIN 300 MG CAP PO SCH (09:00)
--- NOTE | 2020-02-20 09:33 | Discharge Summary ---
Date of Service February 19, 2020 Admission HPI Per Admitting Provider Lainey Fernandes is a 74 yo woman with a PMHx of TIA (in 2004), complicated migraines, insulin-dependent diabetes mellitus, HTN, and A-fib on Xarelto who presented for evaluation of confusion, expressive aphasia and R arm numbness (not weakness) that started earlier today. She also reports an unusual visual phenomenon of seeing red blotches over the past several days. Her sister was with her today and noticed that Lainey Fernandes was mildly confused and seemed to be having word finding troubles. Her NIH stroke scale on admission was 0. tPa is contraindicated due to her Xarelto use. By the time of her evaluation, all of her symptoms had totally resolved. Of note, Lainey Fernandes was in the ED on 02/[address] Head CT at the time was negative for acute bleed. She denies any subsequent falls. A venous doppler of her right lower extremity was also ordered on 02/06, as her leg was red, warm and swollen. It was negative for DVT. Lainey Fernandes attributes her leg swelling and discomfort to a trauma (her granddaughter collided with her while playing). She was sent out with a 7 day course of Keflex, of which she is currently on day 6 ED Course: CBC normal. CMP normal. INR 1.3. trop x 1 undetectable. EKG showing rate controlled Afib. CXR showing no active disease in the chest (awaiting final read). Head CT showing no acute bleed (per STAT RAD). Patient was Principal Diagnosis complex migraine/ cellultiis Discharge Exam Constitutional: WD/WN, vitals as above + acute distress Eyes: EOM intact bilaterally; no conjunctival abnormality ENMT: external ear and nose normal, oropharynx normal Neck: trachea midline, no thyromegaly normal visual inspection Respiratory: normal respiratory effort, lungs clear to auscultation no respiratory distress Cardiovascular: RRR, no murmur, no edema Gastrointestinal (Abdomen): Inspection/Auscultation: abdomen normal to inspection; abdomen not distended Musculoskeletal: no cyanosis or clubbing, extremities motor strength 5/5 Skin: no rashes, warm and dry Neurologic: moves all extremities and awake Psychiatric: Orientation: alert; + not oriented x 3 Motor Behavior: + psychomotor agitation Discharge Data Allergies Allergy/AdvReac Type Severity Reaction Status Date / Time benztropine Allergy Unknown UNKNOWN Verified 02/07/20 17:18 citalopram Allergy Unknown UNKNOWN Verified 02/07/20 17:18 simvastatin Allergy Unknown UNK Verified 02/07/20 17:18 sulindac Allergy Unknown UNKNOWN Verified 02/07/20 17:18 doxycycline AdvReac Mild NAUSEA Verified 02/07/20 17:18 minocycline AdvReac Mild NAUSEA Verified 02/07/20 17:18 Consultations 02/16/20 22:40 ED Decision to Admit Stat 02/17/20 01:21 Consult Case Management - Discharge Planning Routine Consult Neurology Routine Ordered Studies 02/16/20 20:51 CT head/brain wo con Urgent 02/17/20 01:21 CT angio head w con Urgent CT angio neck with con Urgent MR brain wo/w con Routine Hospital Course (1) Expressive aphasia: Mrs. Ramirez is a 74 yo woman with a PMHx of TIA, complicated migraines, insulin dependent diabetes mellitus, HTN and permanent Afib on Xarelto who presents for evaluation of confusion, expressive aphasia and R upper extremity numbness. Symptoms resolved by the time evaluation. - etiology unknown, although ischemic stroke vs. TIA vs. complicated migraine are atop the differential - patient has several risk factors for vascular disease: HTN, diabetes, Afib - given transient nature of symptoms, TIA and complicated migraines are felt > ischemic stroke - patient denies headache, although she reports history of complicated migraine without associated head pain - Head CT neg for acute bleed - complete stroke work up ordered (Head and Neck CTA, Brain MRI, TTE, fasting lipid panel and Hb1c). - Neurology consult ordered: does not appear to be a stroke, perhaps a complex migraine. - will discharge on gabapentin 600 mg PO BID. -will need followup with PCP and Neuro. Patient stated she can schedule these appointments. -Patient also did refused SNF. (2) Cellulitis: - Right LE erythematous, warm and tender on admission, improved on discharge. - not improving on PO Keflex - given hx of diabetes, we will add pseudomonal coverage with zosyn - Stopped dapto due to MRSA swab being negatve. will discharge on augmentin to complete course (3) Hematoma of right lower leg: - likely secondary to trauma (playful accident with granddaughter) - improving since onset - no active management - venous duplex on 02/06 negative for DVT (4) Type 2 diabetes mellitus with retinopathy, with long-term current use of insulin: - most recent A1c /2020 above goal at 8.6 - repeat level in AM - continue home insulin regimen - continue ASA 81mg, daily and Atorvastatin 10mg, daily - follows with hematology nurse educator (5) Diastolic CHF: - continue home dose bumex - does not appear to be on a pennie toshia or MARCO (would not add in setting of stroke work up - want to allow for permissive HTN) (6) Hypertension: - BP 155/75 - does not appear to be on any home medications - would recommend starting MARCO/ARB given concurrent diabetes diagnosis (however holding off now given current stroke work up - want to allow for permissive HTN) (7) Permanent atrial fibrillation: - rate controlled without medication - anticoagulated on Xarelto - TTE in AM to assess for thrombus (8) Parkinson disease: - continue home dose carbidopa-levodopa (2) Cellulitis: (3) Hematoma of right lower leg: (4) Type 2 diabetes mellitus with retinopathy, with long-term current use of insulin: (5) Diastolic CHF: (6) Hypertension: (7) Permanent atrial fibrillation: (8) Parkinson disease: Total Time Total Time Spent Total Time Spent (In Minutes): 32 Total Time Includes: Examination of the Patient, Discharge Planning and Medication Reconciliation Discharge Plan Discharge Items Patient Disposition: Home - Self-Care Reason For Visit: APHASIA Discharge Diagnosis: Aphasia Activity: Resume your previous activity Non-emergency contact: Primary Care Provider Call non-emergency contact if: you have any medication questions Follow-up/Referrals: Damaris Vega MD [Primary Care Provider] - Diet: Carb Consistent or DM2 and Heart Healthy Addtl Attending Provider Instructions: followup post-discharge within 3-[address] Wen who follows her for her Parkinson's disease Also followup with PCP in 1-2 weeks Pending Studies at Discharge: No Stand-Alone Forms: [facility], Smoking Cessation Medications and DC Order Prescriptions: New amoxicillin-pot clavulanate [Augmentin] 875-125 mg tablet 1 tab PO BID Qty: 14 RF: 0 Continued insulin lispro [Humalog U-100 Insulin] 100 unit/mL solution See Rx Instructions SQ UD Qty: 9 RF: 3 gabapentin 300 mg Capsule 600 mg PO HS RF: 0 diclofenac sodium 3 % Gel 1 applic TOPICAL BID RF: 0 aspirin [Aspirin Low Dose] 81 mg tablet,delayed release (DR/EC) 81 mg PO DAILY RF: 0 calcium carbonate-vitamin D3 [Calcium 500 + D] 500 mg(1,250mg) -200 unit tablet 1 tab PO DAILY RF: 0 atorvastatin 10 mg tablet 10 mg PO DAILY RF: 0 bumetanide 1 mg tablet See Rx Instructions .ROUTE .COMPLEX Qty: 30 RF: 0 lorazepam 0.5 mg tablet 0.5 mg PO BID PRN (Reason: Anxiety) RF: 0 Xarelto 20 mg tablet 20 mg PO QPM RF: 0 carbidopa-levodopa 25-100 mg tablet 2 tab PO QID RF: 0 Saccharomyces boulardii [Florastor] 250 mg capsule 250 mg PO BID Qty: 20 RF: 0 Changed gabapentin 300 mg capsule 600 mg PO QAM Qty: 60 RF: 0 Discontinued cephalexin 500 mg capsule 500 mg PO QID RF: 0 Discharge Orders: Discharge Order (Routine); Ordered 02/19/20 Ordered By: Geoffrey Johnson/Other Patient Handouts: Managing Type 2 Diabetes Admission Data Admit Date/Time: 02/19/20 09:20 Attending Provider: Geoffrey Castor Admit Provider: Yandy Curtis Primary Care Provider: Damaris Vega Other Providers: Tc Dickey ; Chrissy Bauer ; [facility] Other Interventions: Discharge Summary Assessment (RN) Last Done: 02/19/20 16:23 Coding Level of Care Code D/C Day Management >30 mins Diagnoses Expressive aphasia R47.01 Cellulitis L03.90 Hematoma of right lower leg S80.11XA Type 2 diabetes mellitus with retinopathy, with long-term current use of insulin E11.319; Z79.4 Diastolic CHF I50.30 Hypertension I10 Permanent atrial fibrillation I48.21 Parkinson disease G20 Time Spent (min) 32
== END 2020-02-19 17:17 | disposition home or self-care (01) ==
LOC: 2S 20:28 → ED 20:28 → SUATTDRO 23:47 → 2S 02-17 00:35

== ENCOUNTER 2020-03-08 19:18 | Observation (INO) ==
[2020-03-08] MEDS ORDERED: ONDANSETRON INJ 2 MG/ML 2 ML VIAL IV STA (19:26)
[2020-03-08 19:54] LABS: Basophils # (auto) 0.02 K/uL (0-0.2); Basophils % (auto) 0.4 %; Eosinophils # (auto) 0.12 K/uL (0-0.5); Eosinophils % (auto) 2.3 %; Hematocrit (blood only) 42.3 % (37-47); Hemoglobin 13.6 g/dL (12.0-16.0); Immature Granulocytes # (auto) 0.02 K/uL (0.00-0.02); Immature Granulocytes % (auto) 0.4 %; Lymphocytes # (auto) 1.01 K/uL (1.2-3.4); Lymphocytes % (auto) 19.7 %; Mean Corpuscular Hemoglobin 29.1 pg (25-34); Mean Corpuscular Hgb Conc 32.2 g/dL (32-36); Mean Corpuscular Volume 90.6 fL (80-100); Mean Platelet Volume 10.3 fL (7.4-10.4); Monocytes # (auto) 0.43 K/uL (0.11-0.59); Monocytes % (auto) 8.4 %; Neutrophils # (auto) 3.52 K/uL (1.4-6.5); Neutrophils % (auto) 68.8 %; Platelet Count 191 K/uL (130-400); RDW Coefficient of Variation 15.5 % (11.5-14.5); RDW Standard Deviation 51.6 fL (36.4-46.3); Red Blood Count 4.67 M/uL (4.2-5.4); White Blood Count 5.12 K/uL (4.8-10.8)
[2020-03-08] MEDS: fentaNYL citrate 100 MCG/2 ML VIAL IV PRN ×3 (19:56→23:07)
[2020-03-08 20:01] LABS: INR 1.2 (0.9-1.1); Partial Thromboplastin Ratio 1.1; Partial Thromboplastin Time 31.1 Seconds (21.0-31.0); Prothrombin Time 12.4 Seconds (9.0-12.0)
--- NOTE | 2020-03-08 20:02 | XRay Report ---
XR chest 1V portable HISTORY: Atypical Chest Pain COMPARISON: Chest 02/16/2020. FINDINGS: No pneumothorax. No pleural effusions. The heart remains mildly enlarged. Diffuse interstit ial thickening, unchanged. No new focal lung consolidations. Old, healed right-sided rib fractures. L eft tracheal deviation, unchanged. This is secondary to the patient's known right-sided goiter. IMPRESSION: No significant change compared to the prior study. Chronic interstitial thickening and mild cardiomeg patricia persist. ACT 112: Negative or not required by law. Electronically signed by: Cali Reilly M.D. 03/08/2020 8:01 PM
[2020-03-08 20:05] LABS: Alanine Aminotransferase 19 U/L (12-78); Albumin Level 3.6 gm/dl (3.4-5.0); Aspartate Aminotransferase 20 U/L (15-37); BUN Creatinine Ratio 21.6 (10-20); Blood Urea Nitrogen 18 mg/dl (7-18); Carbon Dioxide 26 mmol/L (21-32); Chloride 105 mmol/L (98-107); Creatinine Clr Calc Pharmacy 73.3 ml/min; Est GFR (African American) 82.3; Glucose 254 mg/dl (70-99); Lipase 46 U/L (73-393); Potassium 4.8 mmol/L (3.5-5.1); Sodium 139 mmol/L (136-145)
[2020-03-08 20:10] LABS: Alkaline Phosphatase 89 U/L (45-117); Creatine Kinase 64 U/L (26-192); Creatine Kinase MB 1.4 ng/ml (0.5-3.6); Globulin 3.7 gm/dl (2.5-4.0); Total Protein 7.3 gm/dl (6.4-8.2); Troponin I < 0.015 ng/ml (0-0.045)
--- NOTE | 2020-03-08 20:49 | Ultrasound Report ---
RIGHT LOWER EXTREMITY VENOUS DOPPLER HISTORY: Right lower extremity pain. COMPARISON STUDY: None. FINDINGS: There is normal compressibility, flow, and augmentation within the right lower extremity de ep venous system. IMPRESSION: No DVT within the right lower extremity ACT 112: Negative or not required by law. Electronically signed by: Cali Reilly M.D. 03/08/2020 8:48 PM
--- NOTE | 2020-03-08 20:51 | Ultrasound Report ---
US arterial duplex LE RT CLINICAL HISTORY: Right lower extremity pain. COMPARISON STUDY: None. FINDINGS: The ankle brachial indices were unable to be obtained. Normal velocities and biphasic to tr iphasic waveforms seen throughout the right lower extremity arterial system. Of note, the calf vessel s are suboptimally assessed due to the swelling at this location but appear patent. No areas of arter ial occlusion identified. IMPRESSION: No significant stenosis or occlusion within the right lower extremity arterial system. ACT 112: Negative or not required by law. Electronically signed by: Cali Reilly M.D. 03/08/2020 8:50 PM
[2020-03-08] MEDS ORDERED: cefTRIAXone SODIUM 1,000 MG/50 ML BAG IV STA (21:14)
--- NOTE | 2020-03-08 21:23 | Emergency Department Note ---
Impression & Plan Cellulitis, Lower extremity pain, right, A-fib ED Provider Note NAME: BASSEM VIVEROS AGE: 74 SEX: F : 1945 ARRIVES VIA: Ambulance INFORMANT: Patient, ED PROVIDER(S): Aleksandr Velasquez DO CHIEF COMPLAINT: Lower extremity pain HPI: The patient is a 74-year-old female who presented to the emergency department for an evaluation of lower extremity pain. The patient describes atraumatic right lower extremity pain which began many weeks ago. She was seen by her primary care physician. She had a Doppler which revealed no signs of DVT. She was started on pain medication but states that the pain medication is not helping. She states the pain is worsened with movement. She states when she tries to ambulate and bear weight she has significant pain in her right hip. She denies having any falls. She denies having any fever. She did have some erythema of her lower extremity and was treated with an antibiotic. She denies having any right foot pain but does have pain that begins in her knee and goes up into her groin. She denies having any back pain. She has a history of sciatica. She states the pain is moderate to severe and worsens with any ambulation. The pain is somewhat improved with remaining still. ROS: See above HPI for pertinent positives & negatives. A total of 10 systems reviewed and were otherwise negative. PAST MEDICAL HISTORY: See Below PAST SURGICAL HISTORY: See Below FAMILY HISTORY: See Below SOCIAL HISTORY: See Below HOME MEDICATIONS: See Below ALLERGIES: See Below VITALS: See Below PHYSICAL EXAMINATION: GENERAL: The patient is awake and alert. She is somewhat uncomfortable appearing. She appears to be in significant pain. EYES: The conjunctivae are clear. The pupils are round and reactive. EARS, NOSE, MOUTH AND THROAT: The nose is without any evidence of any deformity. Mucous membranes are moist. Tongue is midline. NECK: The neck is nontender and supple. RESPIRATORY: Normal respiratory effort is noted there is no evidence of wheezing rhonchi or rales CARDIOVASCULAR: Regular rhythm was noted to auscultation. No definite murmur was noted. GASTROINTESTINAL: The abdomen is soft. Abdomen is nontender. BACK: No midline tenderness or or step-off noted range of motion in flexion extension as well as rotation no signs of muscle spasm noted MUSCULOSKELETAL/EXTREMITIES: There was no deformity noted of the right lower extremity. Patient has pain with range of motion testing of the right hip as well as her right knee. There was no deformity or pain over the right lower extremity. There is no deformity or pain with palpation over the right foot. SKIN: Trace pedal edema was noted bilaterally. Pulses are diminished in both feet. Groin pulses are symmetric. Capillary refill was diminished but symmetric in both feet. There was erythema noted over the anterior right lower extremity. NEUROLOGIC: Patient is awake alert and oriented x 3. MEDICAL DECISION MAKING: The patient is a 74-year-old female who has a history of atrial fibrillation who takes oral anticoagulation who presented to the emergency department for an evaluation of lower extremity pain. The patient had very severe lower extremity pain. It was worse with any ambulation. She denies any fall but radiographic studies were obtained. No acute fracture was noted. Given the patient's history of atrial fibrillation Dopplers were obtained to ensure there was no signs of venous thromboembolic disease or arterial thrombus. There was no acute DVT or arterial occlusion noted. The patient does have erythema to the leg but she states she was on an antibiotic and the erythema is improved. I discussed the patient's laboratory and radiographic studies with her. She was still having very severe pain despite being treated with IV pain medication. She was further treated with IV antibiotics for continued cellulitis. The patient is unable to ambulate at this time. For this reason I will discuss her case with the on-call [facility]ist. She may require inpatient management followed by rehab. She may also require further studies to explore other causes for the patient's pain. Triage Nursing notes reviewed. Prior medical records reviewed Vital Signs: reviewed and remarkable for elevated blood pressure Differential diagnosis: Cellulitis, abscess, MRSA infection, DVT, necrotizing fasciitis, dermatitis, d rug eruption, allergic reaction, as well as other pathologies. ER treatment provided: See below Diagnostics interpreted by me: ECG: EKG was obtained in the emergency department. My interpretation is atrial fibrillation at 80 bpm, poor R wave progression was noted. There was no PVCs. This was compared to a tracing from February 152019. No significant changes were noted. Cardiac Monitoring: An order was placed for continuous cardiac monitoring. The monitor shows a rate of 85 bpm with atrial fibrillation rhythm. Laboratory studies: As stated above and show below. Imaging studies: See below [facility] Past Med/Surg History Medical History Alteration in tactile sense Anxiety CHF (congestive heart failure) Diabetes GERD (gastroesophageal reflux disease) History of TIA (transient ischemic attack) Hypertension Mitral valve disorder Obesity Parkinson disease Permanent atrial fibrillation Right arm numbness Slurred speech Surgical History H/O breast biopsy History of eye surgery Knee joint replacement status S/P appendectomy S/P cholecystectomy Family History Mother Colorectal cancer Congestive heart failure Diabetes Hypertension Brother Colorectal cancer Congestive heart failure Sister Cancer Unknown Pancreatic cancer Social History Smoking Status: Never smoker Second Hand Exposure: No; Hx Alcohol Use: Yes Alcohol type: wine Hx Substance Use: No Preferred Language: Nauruan Communication Ability: Effective 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 Required: No Beliefs That Will Affect Care: None marital status: Current Living Situation: Alone Feels Safe at Home: Yes Allergies Allergies Allergy/AdvReac Type Severity Reaction Status Date / Time benztropine Allergy Unknown UNKNOWN Verified 02/07/20 17:18 citalopram Allergy Unknown UNKNOWN Verified 02/07/20 17:18 simvastatin Allergy Unknown UNK Verified 02/07/20 17:18 sulindac Allergy Unknown UNKNOWN Verified 02/07/20 17:18 doxycycline AdvReac Mild NAUSEA Verified 02/07/20 17:18 minocycline AdvReac Mild NAUSEA Verified 02/07/20 17:18 Home Meds Home Medications Medication Instructions Recorded Confirmed aspirin 81 mg tablet,delayed 81 mg PO DAILY tab 01/19/19 02/16/20 release atorvastatin 10 mg tablet 10 mg PO DAILY tab 01/19/19 02/16/20 calcium carbonate 500 mg (1,250 1 tab PO DAILY tab 01/19/19 02/16/20 mg)-vitamin D3 200 unit tablet Xarelto 20 mg PO QPM 11/08/19 02/16/20 lorazepam 0.5 mg PO BID PRN 11/08/19 02/16/20 carbidopa-levodopa 2 tab PO QID 02/07/20 02/16/20 diclofenac sodium 1 applic TOPICAL BID 02/16/20 02/16/20 gabapentin 600 mg PO HS 02/16/20 02/16/20 Previous Rx's Medication Instructions Recorded bumetanide See Rx Instructions .ROUTE 08/31/19 .COMPLEX #30 tab insulin lispro 100 unit/mL See Rx Instructions SQ UD #9 vial 01/08/20 subcutaneous solution Saccharomyces boulardii [Florastor] 250 mg PO BID #20 cap 02/07/20 amoxicillin-pot clavulanate 1 tab PO BID #14 tab 02/19/20 [Augmentin] gabapentin 600 mg PO QAM #60 cap 02/19/20 Results & Data (ED) Vital Signs Vital Signs - 24 hr 03/08/20 19:29 03/08/20 19:30 03/08/20 19:35 Temperature Temperature Source Pulse Rate 80 82 81 Pulse Rate [Right Finger] Pulse Rate from SpO2 Sensor 81 81 83 Respiratory Rate 16 19 19 Blood Pressure 155/79 H Blood Pressure [Right Arm] Blood Pressure Mean 109 Blood Pressure Mean [Right Arm] Pulse Oximetry 97 93 95 Sepsis Recent Fever Within 48 Hours Sepsis New/Unexplained Change in Mental Status Sepsis Action Taken by Nursing 03/08/20 19:40 03/08/20 20:38 03/08/20 21:00 Temperature 36.8 C Temperature Source Oral Pulse Rate 78 88 84 Pulse Rate [Right Finger] Pulse Rate from SpO2 Sensor 93 H 77 Respiratory Rate 20 22 19 Blood Pressure 155/79 H Blood Pressure [Right Arm] Blood Pressure Mean 104 Blood Pressure Mean [Right Arm] Pulse Oximetry 96 95 Sepsis Recent Fever Within 48 Hours No Sepsis New/Unexplained Change in Mental Status N/A Sepsis Action Taken by Nursing No Action Required 03/08/20 22:08 03/08/20 22:10 Temperature Temperature Source Pulse Rate Pulse Rate [Right Finger] 82 Pulse Rate from SpO2 Sensor Respiratory Rate 19 Blood Pressure Blood Pressure [Right Arm] 155/79 H 162/80 H Blood Pressure Mean Blood Pressure Mean [Right Arm] 104 107 Pulse Oximetry 98 Sepsis Recent Fever Within 48 Hours Sepsis New/Unexplained Change in Mental Status Sepsis Action Taken by Correction Medications Current Medication List: was personally reviewed by me Laboratory Data Attestation: I reviewed the patient's lab results. Result diagrams: 03/08/20 19:37 03/08/20 19:37 Lab Results 03/08/20 03/08/20 03/08/20 Range/Units 19:37 19:37 19:37 WBC 5.12 (4.8-10.8) K/uL RBC 4.67 (4.2-5.4) M/uL Hgb 13.6 (12.0-16.0) g/dL Hct 42.3 (37-47) % MCV 90.6 (80-100) fL MCH 29.1 (25-34) pg MCHC 32.2 (32-36) g/dL RDW Std Deviation 51.6 H (36.4-46.3) fL RDW Coeff of Vicky 15.5 H (11.5-14.5) % Plt Count 191 (130-400) K/uL MPV 10.3 (7.4-10.4) fL Immature Gran % (Auto) 0.4 % Neut % (Auto) 68.8 % Lymph % (Auto) 19.7 % [place] % (Auto) 8.4 % Eos % (Auto) 2.3 % Baso % (Auto) 0.4 % Neut # (Auto) 3.52 (1.4-6.5) K/uL Lymph # (Auto) 1.01 L (1.2-3.4) K/uL [place] # (Auto) 0.43 (0.11-0.59) K/uL Eos # (Auto) 0.12 (0-0.5) K/uL Baso # (Auto) 0.02 (0-0.2) K/uL Immature Gran # (Auto) 0.02 (0.00-0.02) K/uL PT 12.4 H (9.0-12.0) Seconds INR 1.2 H (0.9-1.1) APTT 31.1 H (21.0-31.0) Seconds PTT Ratio 1.1 Sodium 139 (136-145) mmol/L Potassium 4.8 (3.5-5.1) mmol/L Chloride 105 (98-107) mmol/L Carbon Dioxide 26 (21-32) mmol/L Anion Gap 7.0 (3-11) BUN 18 (7-18) mg/dl Creatinine 0.82 (0.6-1.2) mg/dl Est Cr Clr Drug Dosing 73.3 ml/min Est GFR ( Amer) 82.3 Est GFR (Non-Af Amer) 71.0 BUN/Creatinine Ratio 21.6 H (10-20) Glucose 254 H (70-99) mg/dl Calcium 9.0 (8.5-10.1) mg/dl Total Bilirubin 2.0 H (0.2-1) mg/dl AST 20 (15-37) U/L ALT 19 (12-78) U/L Alkaline Phosphatase 89 (45-117) U/L Total Creatine Kinase 64 (26-192) U/L CK-MB (CK-2) 1.4 (0.5-3.6) ng/ml CK/CKMB % Calc 2.2 (0-3.0) Troponin I < 0.015 (0-0.045) ng/ml Total Protein 7.3 (6.4-8.2) gm/dl Albumin 3.6 (3.4-5.0) gm/dl Globulin 3.7 (2.5-4.0) gm/dl Albumin/Globulin Ratio 1.0 (0.9-2) Lipase 46 L (73-393) U/L Administered Medications Fentanyl Citrate (Fentanyl Citrate 100 Mcg/2 Ml Vial) 50 mcg IV Q15M PRN PRN Reason: Pain Stop: 03/22/20 19:25 Last Admin: 03/08/20 20:44 Dose: 50 mcg Documented by: [id number] Admin: 03/08/20 19:56 Dose: 50 mcg Documented by: [id number] Discontinued Medications Ceftriaxone Sodium (Rocephin) 1,000 mg in 50 mls @ 100 mls/hr IV NOW STA Stop: 03/08/20 21:43 Last Infusion: 03/08/20 22:14 Dose: 0 mls/hr Documented by: [id number] Admin: 03/08/20 21:47 Dose: 100 mls/hr Documented by: [id number] Ondansetron HCl (Ondansetron Inj 2 Mg/Ml 2 Ml Vial) 4 mg IV NOW STA Stop: 03/08/20 19:27 Last Admin: 03/08/20 19:56 Dose: 4 mg Documented by: [id number] Imaging Data Radiologist's Impression: XR femur RT 2V routine, XR tibia fibula RT 2V CLINICAL HISTORY: Right lower extremity pain. COMPARISON STUDY: None. FINDINGS: Chondrocalcinosis within the right knee and moderate cartilage space narrowing within the medial compartment of the right knee. Mild vascular calcifications are noted within the right lower extremity. Severe cartilage space narrowing at the patellofemoral joint consistent with osteoarthritis. No knee effusion. No fracture or dislocation within the right femur, right tibia, or right fibula. Subcutaneous edema seen within the distal right thigh and right lower leg. IMPRESSION: Subcutaneous edema within the distal right thigh and right lower leg. No fractures identified. ACT 112: Negative or not required by law. Electronically signed by: Cali Reilly M.D. 03/08/2020 9:59 PM Dictated: 03/08/202155 Transcribed: 03/08/202155 RIGHT LOWER EXTREMITY VENOUS DOPPLER HISTORY: Right lower extremity pain. COMPARISON STUDY: None. FINDINGS: There is normal compressibility, flow, and augmentation within the right lower extremity deep venous system. IMPRESSION: No DVT within the right lower extremity ACT 112: Negative or not required by law. Electronically signed by: Cali Reilly M.D. 03/08/2020 8:48 PM Dictated: 03/08/202047 Transcribed: 03/08/202047 US arterial duplex LE RT CLINICAL HISTORY: Right lower extremity pain. COMPARISON STUDY: None. FINDINGS: The ankle brachial indices were unable to be obtained. Normal velocities and biphasic to triphasic waveforms seen throughout the right lower extremity arterial system. Of note, the calf vessels are suboptimally assessed due to the swelling at this location but appear patent. No areas of arterial occlusion identified. IMPRESSION: No significant stenosis or occlusion within the right lower extremity arterial system. ACT 112: Negative or not required by law. Electronically signed by: Cali Reilly M.D. 03/08/2020 8:50 PM Dictated: 03/08/202047 Transcribed: 03/08/202047 XR chest 1V portable HISTORY: Atypical Chest Pain COMPARISON: Chest 02/16/2020. FINDINGS: No pneumothorax. No pleural effusions. The heart remains mildly enla rged. Diffuse interstitial thickening, unchanged. No new focal lung consolidations. Old, healed right-sided rib fractures. Left tracheal deviation, unchanged. This is secondary to the patient's known right-sided goiter. IMPRESSION: No significant change compared to the prior study. Chronic interstitial thickening and mild cardiomegaly persist. ACT 112: Negative or not required by law. Electronically signed by: Cali Reilly M.D. 03/08/2020 8:01 PM Dictated: 03/08/201999 Transcribed: 03/08/201999 Blood Pressure Blood Pressure Findings: Elevated blood pressure Blood Pressure Disposition: further management by hospitalist Discharge Plan Visit Data Chief Complaint: Leg Injury/Pain Stated Complaint: lower leg pain ED Provider: Aleksandr Velasquez Discharge Problem: Cellulitis, Lower extremity pain, right, A-fib Patient Disposition: Being Evaluated by Hospitalist Condition: Good Forms Stand Alone Forms: My [facility] [employer] Prescriptions Prescriptions: No Action insulin lispro [Humalog U-100 Insulin] 100 unit/mL solution See Rx Instructions SQ UD Qty: 9 RF: 3 gabapentin 300 mg Capsule 600 mg PO HS RF: 0 diclofenac sodium 3 % Gel 1 applic TOPICAL BID RF: 0 gabapentin 300 mg capsule 600 mg PO QAM Qty: 60 RF: 0 amoxicillin-pot clavulanate [Augmentin] 875-125 mg tablet 1 tab PO BID Qty: 14 RF: 0 aspirin [Aspirin Low Dose] 81 mg tablet,delayed release (DR/EC) 81 mg PO DAILY RF: 0 calcium carbonate-vitamin D3 [Calcium 500 + D] 500 mg(1,250mg) -200 unit tablet 1 tab PO DAILY RF: 0 atorvastatin 10 mg tablet 10 mg PO DAILY RF: 0 bumetanide 1 mg tablet See Rx Instructions .ROUTE .COMPLEX Qty: 30 RF: 0 lorazepam 0.5 mg tablet 0.5 mg PO BID PRN (Reason: Anxiety) RF: 0 Xarelto 20 mg tablet 20 mg PO QPM RF: 0 carbidopa-levodopa 25-100 mg tablet 2 tab PO QID RF: 0 Saccharomyces boulardii [Florastor] 250 mg capsule 250 mg PO BID Qty: 20 RF: 0 Referrals Referrals: Damaris Vega MD [Primary Care Provider] - Discharge Problem: Cellulitis Qualifiers: Site of cellulitis: extremity Site of cellulitis of extremity: lower extremity Laterality: right Qualified Code(s): L03.115 - Cellulitis of right lower limb A-fib Qualifiers: Atrial fibrillation type: unspecified Qualified Code(s): I48.91 - Unspecified atrial fibrillation
--- NOTE | 2020-03-08 22:00 | XRay Report ---
XR femur RT 2V routine, XR tibia fibula RT 2V CLINICAL HISTORY: Right lower extremity pain. COMPARISON STUDY: None. FINDINGS: Chondrocalcinosis within the right knee and moderate cartilage space narrowing within the m edial compartment of the right knee. Mild vascular calcifications are noted within the right lower ex tremity. Severe cartilage space narrowing at the patellofemoral joint consistent with osteoarthritis. No knee effusion. No fracture or dislocation within the right femur, right tibia, or right fibula. S ubcutaneous edema seen within the distal right thigh and right lower leg. IMPRESSION: Subcutaneous edema within the distal right thigh and right lower leg. No fractures ident ified. ACT 112: Negative or not required by law. Electronically signed by: Cali Reilly M.D. 03/08/2020 9:59 PM
[2020-03-09] MEDS ORDERED: LORazepam 0.5 MG TAB PO PRN (00:34)
[2020-03-09] MEDS ORDERED: DEXTROSE 50% 50 ML SYRINGE IV PRN (00:34)
[2020-03-09] MEDS ORDERED: MAGNESIUM HYDROXIDE SUSP 30 ML UDC PO PRN (00:34)
[2020-03-09] MEDS ORDERED: ONDANSETRON INJ 2 MG/ML 2 ML VIAL IV PRN (00:34)
[2020-03-09] MEDS ORDERED: ACETAMINOPHEN 325 MG TAB PO PRN (00:34)
[2020-03-09] MEDS ORDERED: GLUCOSE 10 TABS/TUBE PO PRN (00:34)
[2020-03-09] MEDS ORDERED: GLUCAGON FOR INJ 1 MG VIAL SQ PRN (00:34)
[2020-03-09] MEDS ORDERED: CARBOHYDRATES FOR HYPOGLYCEMIA PO PRN (00:34)
[2020-03-09] MEDS ORDERED: ALUMINUM/MAGNESIUM SUSP 30 ML UDC PO PRN (00:34)
[2020-03-09] MEDS ORDERED: GLUCOSE 40% GEL 15 GM TUBE PO PRN (00:34)
[2020-03-09] MEDS ORDERED: INSULIN HUMAN LISPRO (humaLOG) 100 UNITS/ML VIAL SC PRN (01:45)
--- NOTE | 2020-03-09 04:24 | History & Physical Report ---
Date of Service March 09, 2020 The patient was seen and examined on March 08, 2020 Assessment & Plan (1) Cellulitis of right lower extremity without foot: Continue ceftriaxone 1 g IV daily begun in the ED, and Bactrim DS p.o. twice daily Present on Admission?: Yes (2) Diastolic CHF: Diastolic CHF/hypertension/permanent atrial fibrillation- Give a single dose of Bumex 1mg IV tonight, and then 2 mg p.o. every morning. Continue Xarelto 20 mg in the evening and aspirin 81 mg daily Present on Admission?: Yes (3) Hypertension: See above Present on Admission?: Yes (4) Permanent atrial fibrillation: See above Present on Admission?: Yes (5) Parkinson disease: Continue carbidopa levodopa, 2 tablets p.o. 4 times daily Present on Admission?: Yes (6) Diabetic peripheral neuropathy: Increase gabapentin to 600 mg p.o. 3 times daily, from twice daily. Could consider tramadol 50 mg every 6 hours as needed, after acclimated to new gabapentin dose. Consult PT/OT, as patient may require inpatient rehab stay due to difficulty walking at home even with walker. Present on Admission?: Yes (7) Hyperlipidemia: Continue atorvastatin 10 mg daily Present on Admission?: Yes Admission and Anticipated Discharge Date Admission Date: March 08, 2020 History of Present Illness Chief Complaint: The patient presents to the emergency department with redness and discomfort of right lower extremity, and severe bilateral neuropathy pain, which worsens anytime she places weight on her feet, and periodically shoots up into her legs. Primary Care Provider: Damaris Vega MD The patient is a 74-year-old female with a past medical history including severe diabetic peripheral neuropathy, diabetes mellitus type 2 with retinopa thy, diastolic CHF, hyperlipidemia, hypertension, history of syncope, permanent atrial fibrillation on Xarelto, Parkinson's disease, acoustic neuroma, ataxic gait, cerebrovascular disease, depression, migraine, REM sleep behavior disorder, sensorineural hearing loss of both ears, UTI, GERD and left knee joint replacement status. The patient's main complaint is that she is unable to walk at home even with her walker, due to severe bilateral pain along the bottom of her feet which periodically shoots up her legs toward her thighs. She also notes some erythema right lower extremity. Allergies Allergy/AdvReac Type Severity Reaction Status Date / Time benztropine Allergy Unknown UNKNOWN Verified 03/08/20 23:04 citalopram Allergy Unknown UNKNOWN Verified 03/08/20 23:04 simvastatin Allergy Unknown UNK Verified 03/08/20 23:04 sulindac Allergy Unknown UNKNOWN Verified 03/08/20 23:04 doxycycline AdvReac Mild NAUSEA Verified 03/08/20 23:04 minocycline AdvReac Mild NAUSEA Verified 03/08/20 23:04 Home Medications Home Medications Medication Instructions Recorded Confirmed Type aspirin 81 mg tablet,delayed 81 mg PO DAILY tab 01/19/19 03/08/20 History release atorvastatin 10 mg tablet 10 mg PO DAILY tab 01/19/19 03/08/20 History calcium carbonate 500 mg (1,250 1 tab PO DAILY tab 01/19/19 03/08/20 History mg)-vitamin D3 200 unit tablet bumetanide See Rx Instructions .ROUTE 08/31/19 03/08/20 Rx .COMPLEX #30 tab Xarelto 20 mg PO QPM 11/08/19 03/08/20 History lorazepam 0.5 mg PO BID PRN 11/08/19 03/08/20 History insulin lispro 100 unit/mL See Rx Instructions SQ UD #9 vial 01/08/20 03/08/20 Rx subcutaneous solution Saccharomyces boulardii [Florastor] 250 mg PO BID #20 cap 02/07/20 03/08/20 Rx carbidopa-levodopa 2 tab PO QID 02/07/20 03/08/20 History diclofenac sodium 1 applic TOPICAL BID 02/16/20 03/08/20 History gabapentin 600 mg PO HS 02/16/20 03/08/20 History gabapentin 600 mg PO QAM #60 cap 02/19/20 03/08/20 Rx Past Med/Surg History Medical History Alteration in tactile sense Anxiety CHF (congestive heart failure) Diabetes GERD (gastroesophageal reflux disease) History of TIA (transient ischemic attack) Hypertension Mitral valve disorder Obesity Parkinson disease Permanent atrial fibrillation Right arm numbness Slurred speech Surgical History H/O breast biopsy History of eye surgery Knee joint replacement status S/P appendectomy S/P cholecystectomy Family History Mother Colorectal cancer Congestive heart failure Diabetes Hypertension Brother Colorectal cancer Congestive heart failure Sister Cancer Unknown Pancreatic cancer Social History Smoking Status: Never smoker Second Hand Exposure: No; Do You Dip or Chew Tobacco: No; Hx Alcohol Use: Yes Alcohol type: wine Hx Substance Use: No Preferred Language: French Communication Ability: Effective [employer] Required: No Beliefs That Will Affect Care: None marital status: Current Living Situation: Alone Other Information That Helps Us Care for You: No Feels Safe at Home: Yes Safety Concerns: Feels Safe At This Time Review of Systems Review of Systems: The patient denies chest pain, palpitations, shortness of breath, dyspnea on exertion, cough, sore throat, fevers, chills, sweats, nausea, vomiting, diarrhea , constipation, abdominal pain, pelvic pain, blood in urine or stool, dysuria, urinary frequency or urgency, lightheadedness, dizziness, headache, memory loss, loss of consciousness, rash, abnormal bruising or bleeding, focal or generalized weakness, numbness or tingling in arms , generalized arthralgias or myalgias, neck pain, or night sweats. The review of systems is otherwise negative other than for that already noted above, and at least 10 systems have been reviewed. Physical Exam Physical Exam: The patient is awake, alert and oriented 3, well developed and well nourished, normocephalic and atraumatic, lying in bed and in no acute distress. HEENT--PERRL, EOMI, mucous membranes and oropharynx normal. Neck--supple. No JVD. No bruits. Thyroid normal, trachea midline, no adenopathy. Heart--normal S1 and S2. No murmurs, rubs or gallops. Lungs--clear bilaterally, no respiratory distress, no accessory muscle use. Abdomen--normal bowel sounds and soft. Nontender. Nondistended. Obese. Extremities--no cyanosis or clubbing. 1+ bilateral pretibial pitting edema. There are good distal pulses b/l. Dermatologic--mild erythema and warmth anterior surface right lower extremity below the knee and above the ankle Neurologic--cranial nerves II through XII grossly intact. Rheumatologic--normal range of motion. Psychiatric--normal affect. Results & Data Results & Data ([facility]) Vital Signs (Past 12 Hours) Vital Signs Temp Pulse Pulse Resp BP BP Pulse Ox 03/09/20 00:55 97.9 F 96 H 16 169/79 H 96 03/08/20 23:57 82 19 141/58 H 95 03/08/20 22:10 162/80 H 03/08/20 22:08 82 19 155/79 H 98 03/08/20 21:00 84 19 03/08/20 20:38 88 22 95 03/08/20 19:40 98.2 F 78 20 155/79 H 96 03/08/20 19:35 81 19 155/79 H 95 03/08/20 19:30 82 19 93 03/08/20 19:29 80 16 97 Laboratory Results Laboratory Results WBC 5.12 K/uL (4.8-10.8) 03/08/20 19:37 RBC 4.67 M/uL (4.2-5.4) 03/08/20 19:37 Hgb 13.6 g/dL (12.0-16.0) 03/08/20 19:37 Hct 42.3 % (37-47) 03/08/20 19:37 MCV 90.6 fL (80-100) 03/08/20 19:37 MCH 29.1 pg (25-34) 03/08/20 19:37 MCHC 32.2 g/dL (32-36) 03/08/20 19:37 RDW Std Deviation 51.6 fL (36.4-46.3) H 03/08/20 19:37 RDW Coeff of Vicky 15.5 % (11.5-14.5) H 03/08/20 19:37 Plt Count 191 K/uL (130-400) 03/08/20 19:37 MPV 10.3 fL (7.4-10.4) 03/08/20 19:37 Immature Gran % (Auto) 0.4 % 03/08/20 19:37 Neut % (Auto) 68.8 % 03/08/20 19:37 Lymph % (Auto) 19.7 % 03/08/20 19:37 [place] % (Auto) 8.4 % 03/08/20 19:37 Eos % (Auto) 2.3 % 03/08/20 19:37 Baso % (Auto) 0.4 % 03/08/20 19:37 Neut # (Auto) 3.52 K/uL (1.4-6.5) 03/08/20 19:37 Lymph # (Auto) 1.01 K/uL (1.2-3.4) L 03/08/20 19:37 [place] # (Auto) 0.43 K/uL (0.11-0.59) 03/08/20 19:37 Eos # (Auto) 0.12 K/uL (0-0.5) 03/08/20 19:37 Baso # (Auto) 0.02 K/uL (0-0.2) 03/08/20 19:37 Immature Gran # (Auto) 0.02 K/uL (0.00-0.02) 03/08/20 19:37 PT 12.4 Seconds (9.0-12.0) H 03/08/20 19:37 INR 1.2 (0.9-1.1) H 03/08/20 19:37 APTT 31.1 Seconds (21.0-31.0) H 03/08/20 19:37 PTT Ratio 1.1 03/08/20 19:37 Sodium 139 mmol/L (136-145) 03/08/20 19:37 Potassium 4.8 mmol/L (3.5-5.1) 03/08/20 19:37 Chloride 105 mmol/L (98-107) 03/08/20 19:37 Carbon Dioxide 26 mmol/L (21-32) 03/08/20 19:37 Anion Gap 7.0 (3-11) 03/08/20 19:37 BUN 18 mg/dl (7-18) 03/08/20 19:37 Creatinine 0.82 mg/dl (0.6-1.2) 03/08/20 19:37 Est Cr Clr Drug Dosing 73.3 ml/min 03/08/20 19:37 Est GFR ( Amer) 82.3 03/08/20 19:37 Est GFR (Non-Af Amer) 71.0 03/08/20 19:37 BUN/Creatinine Ratio 21.6 (10-20) H 03/08/20 19:37 Glucose 254 mg/dl (70-99) H 03/08/20 19:37 Calcium 9.0 mg/dl (8.5-10.1) 03/08/20 19:37 Total Bilirubin 2.0 mg/dl (0.2-1) H 03/08/20 19:37 AST 20 U/L (15-37) 03/08/20 19:37 ALT 19 U/L (12-78) 03/08/20 19:37 Alkaline Phosphatase 89 U/L (45-117) 03/08/20 19:37 Total Creatine Kinase 64 U/L (26-192) 03/08/20 19:37 CK-MB (CK-2) 1.4 ng/ml (0.5-3.6) 03/08/20 19:37 CK/CKMB % Calc 2.2 (0-3.0) 03/08/20 19:37 Troponin I < 0.015 ng/ml (0-0.045) 03/08/20 19:37 Total Protein 7.3 gm/dl (6.4-8.2) 03/08/20 19:37 Albumin 3.6 gm/dl (3.4-5.0) 03/08/20 19:37 Globulin 3.7 gm/dl (2.5-4.0) 03/08/20 19:37 Albumin/Globulin Ratio 1.0 (0.9-2) 03/08/20 19:37 Lipase 46 U/L (73-393) L 03/08/20 19:37 Diagnostic Findings [place], [place] [phone] XRay Report Patient: BASSEM VIVEROS Date: 03/08/20 MR#: [id number]: [address], [address] Acct ID:[id number]: Date: 1945City Zip: [place] [address] Age: 74Location: ED Sex: FRoom/Bed: Att Phy:Diagnosis: lower leg pain Cesia Phy: Damaris Vega M.D.Service Date: 03/08/20 Fam Phy:Interpreting Phy: Cali Reilly MD Admit Phy: Ordering Phy: Aleksandr Velasquez DO cc: ~ XR chest 1V portable HISTORY: Atypical Chest Pain COMPARISON: Chest 02/16/2020. FINDINGS: No pneumothorax. No pleural effusions. The heart remains mildly enlarged. Diffuse interstitial thickening, unchanged. No new focal lung consolidations. Old, healed right-sided rib fractures. Left tracheal deviation, unchanged. This is secondary to the patient's known right-sided goiter. IMPRESSION: No significant change compared to the prior study. Chronic interstitial thickening and mild cardiomegaly persist. ACT 112: Negative or not required by law. Electronically signed by: Cali Reilly M.D. 03/08/2020 8:01 PM Dictated: 03/08/201999 Transcribed: 03/08/201999 [place], [place] [phone] Ultrasound Report Patient: BASSEM VIVEROS Date: 03/08/20 MR#: [id number]: [address], [address] Acct ID:[id number]: Date: 1945City Zip: [place] [address] Age: 74Location: ED Sex: FRoom/Bed: Att Phy:Diagnosis: lower leg pain Cesia Phy: Damaris Vega M.D.Service Date: 03/08/20 Fam Phy:Interpreting Phy: Cali Reilly MD Admit Phy: Ordering Phy: Aleksandr Velasquez DO cc: ~ US arterial duplex LE RT CLINICAL HISTORY: Right lower extremity pain. COMPARISON STUDY: None. FINDINGS: The ankle brachial indices were unable to be obtained. Normal velocities and biphasic to triphasic waveforms seen throughout the right lower extremity arterial system. Of note, the calf vessels are suboptimally assessed due to the swelling at this location but appear patent. No areas of arterial occlusion identified. IMPRESSION: No significant stenosis or occlusion within the right lower extremity arterial system. ACT 112: Negative or not required by law. Electronically signed by: Cali Reilly M.D. 03/08/2020 8:50 PM Dictated: 03/08/202047 Transcribed: 03/08/202047 [place], [place] [phone] Ultrasound Report Patient: BASSEM VIVEROS Date: 03/08/20 MR#: [id number]: [address], [address] Acct ID:[id number]: Date: 1945[facility] Zip: [place] [address] Age: 74Location: ED Sex: FRoom/Bed: Att Phy:Diagnosis: lower leg pain Cesia Phy: Damaris Vega M.D.Service Date: 03/08/20 [facility] Phy:Interpreting Phy: Cali Reilly MD Admit Phy: Ordering Phy: Aleksandr Velasquez DO cc: ~ RIGHT LOWER EXTREMITY VENOUS DOPPLER HISTORY: Right lower extremity pain. COMPARISON STUDY: None. FINDINGS: There is normal compressibility, flow, and augmentation within the right lower extremity deep venous system. IMPRESSION: No DVT within the right lower extremity ACT 112: Negative or not required by law. Electronically signed by: Cali Reilly M.D. 03/08/2020 8:48 PM Dictated: 03/08/202047 Transcribed: 03/08/202047 [place], [place] [phone] XRay Report Patient: BASSEM VIVEROS Date: 03/08/20 MR#: [id number]: [address], [facility] [address] Acct ID:[id number]: Date: 1945[facility] Zip: [place] [address] Age: 74Location: ED Sex: FRoom/Bed: Att Phy:Diagnosis: lower leg pain Cesia Phy: Damaris Vega M.D.Service Date: 03/08/20 [facility] Phy:Interpreting Phy: Cali Reilly MD Admit Phy: Ordering Phy: Aleksandr Velasquez DO cc: ~ XR femur RT 2V routine, XR tibia fibula RT 2V CLINICAL HISTORY: Right lower extremity pain. COMPARISON STUDY: None. FINDINGS: Chondrocalcinosis within the right knee and moderate cartilage space narrowing within the medial compartment of the right knee. Mild vascular calcifications are noted within the right lower extremity. Severe cartilage space narrowing at the patellofemoral joint consistent with osteoarthritis. No knee effusion. No fracture or dislocation within the right femur, right tibia, or right fibula. Subcutaneous edema seen within the distal right thigh and right lower leg. IMPRESSION: Subcutaneous edema within the distal right thigh and right lower leg. No fractures identified. ACT 112: Negative or not required by law. Electronically signed by: Cali Reilly M.D. 03/08/2020 9:59 PM Dictated: 03/08/202155 Transcribed: 03/08/202155 Code Status & VTE Plan Code Status Full code VTE Prophylaxis Plan VTE Prophylaxis will be ordered: Yes PG Care Time/CCT Total # of Minutes Spent Total Time Spent with Patient: Total time spent is greater than 50% in coordination of care (as documented) at patient's floor/unit and/or counseling patient: Coding Level of Care Code 57145 Initial Inpt Care Lvl 3 Diagnoses Cellulitis of right lower extremity without foot L03.115 Diastolic CHF I50.30 Hypertension I10 Permanent atrial fibrillation I48.21 Parkinson disease G20 Diabetic peripheral neuropathy E11.42 Hyperlipidemia E78.5
[2020-03-09] MEDS ORDERED: BUMETANIDE 1 MG in SYRINGE 0 ML IV ONE (04:45)
[2020-03-09 06:55] LABS: Estimated Average Glucose 140 mg/dl; Hemoglobin A1C 6.5 % (4.5-5.6)
[2020-03-09] MEDS ORDERED: INSULIN ASPART 100 UNITS/ML 3 ML PEN SC SCH (07:30)
[2020-03-09] MEDS: SULFAMETHOXAZOLE/TRIMETHOPRIM DS 800/160MG TAB PO SCH ×2 (08:54→21:11)
[2020-03-09] MEDS: BUMETANIDE 1 MG TAB PO SCH (08:54)
[2020-03-09] MEDS: GABAPENTIN 300 MG CAP PO SCH ×3 (08:55→21:09)
[2020-03-09] MEDS: CALCIUM 600MG + VIT D 400 IU TAB PO SCH (08:57)
[2020-03-09] MEDS: SACCHAROMYCES BOULARDII 250 MG CAP PO SCH ×2 (08:57→21:10)
[2020-03-09] MEDS: ATORVASTATIN 10 MG TAB PO SCH (08:58)
[2020-03-09] MEDS: ASPIRIN 81 MG ECTAB PO SCH (08:58)
[2020-03-09] MEDS: CARBIDOPA/LEVODOPA 25/100MG TAB PO SCH ×4 (08:58→21:11)
[2020-03-09] MEDS ORDERED: GABAPENTIN 300 MG CAP PO SCH ×2 (09:00)
[2020-03-09] MEDS ORDERED: DICLOFENAC SOD 1% GEL 100 GM TUBE EXT SCH (09:00)
[2020-03-09] MEDS: INSULIN GLARGINE SOLOSTAR 100 UNITS/ML 3 ML PEN SC SCH (13:23)
[2020-03-09] MEDS: INSULIN ASPART 100 UNITS/ML 3 ML PEN SC SCH ×4 (13:25→21:14)
[2020-03-09] MEDS: ACETAMINOPHEN 325 MG TAB PO SCH ×2 (14:04→21:12)
[2020-03-09] MEDS: DICLOFENAC SOD 1% GEL 100 GM TUBE EXT SCH ×3 (14:04→21:09)
[2020-03-09] MEDS: MELOXICAM 7.5 MG TAB PO SCH ×2 (14:04→21:10)
--- NOTE | 2020-03-09 16:48 | Electrocardiogram Report ---
Test Reason : Blood Pressure : / mmHG Vent. Rate : 080 BPM Atrial Rate : 082 BPM P-R Int : 000 ms QRS Dur : 082 ms QT Int : 364 ms P-R-T Axes : 000 -45 034 degrees QTc Int : 419 ms Poor data quality, interpretation may be adversely affected Atrial fibrillation Left anterior fascicular block Abnormal ECG When compared with ECG of 16-FEB-2020 21:34, No significant change was found Confirmed by Tarun Briones ([id number]) on 03/09/2020 4:47:55 PM Referred By: REFERRED SELF Confirmed By:Nicho Briones
--- NOTE | 2020-03-09 19:46 | Hospitalist Progress Note ---
Date of Service March 09, 2020 Assessment & Plan (1) Hip pain: seems to be the main thing that brought her in examines c/w OA flare. xrays from a few days ago do appear moderate DJD failing outpt PT, doesn't feel safe at home PT / OT eval and treat pain control - scheudled tylenol, voltaren gel, meloxicam (short term) (2) Diastolic CHF: appearing compensated, continue home meds was treated for acute on chronic HFpEF w additional IV bumex at admission, but none appears to be needed ongoing (3) Hypertension: BP reasonable, follow (4) Permanent atrial fibrillation: rate controlled, anticoagulated (5) Parkinson disease: Continue carbidopa levodopa, 2 tablets p.o. 4 times daily PT/OT eval and treat (6) Diabetic peripheral neuropathy: Increased gabapentin to 600 mg p.o. 3 times daily, from twice daily. follow for improvement in pain vs if she has any increase in grogginess (7) Hyperlipidemia: Continue atorvastatin 10 mg daily (8) Venous stasis: does not appear clinically c/w cellulitis and she shows no s/s SIRS/SOFA - suspect that her redness (especially since it got better before she even came to ER) was venous stasis changes. follow off abx (9) DVT prophylaxis: xarelto (10) Discharge planning issues: PT/OT eval and treat, anticipate need for rehab Admission and Anticipated Discharge Date Admission Date: March 08, 2020 Subjective R groin pain and pain down the top of her thigh. hurts mostly when standing and trying to move. sometimes seems to go down leg a little more. really bad over the last week or so. was doing outpt PT at [facility]. no f/c/s no persistent redness of leg/skin - notes it was red earlier in the day yseterday but better by the time she got to the hosptial Review of Systems Review of Systems: All systems reviewed & are unremarkable except as noted in HPI & below Physical Exam Physical Exam: gen aao pleasant nad heent nc at mmm breathing unlabored no accessory muscles good effort skin no rashes no pallor or icterus neuro no focal deficits msk - R groin pain elicited w internal rotation of hip, quadriceps musculature tender to palp. no crepitis. no erythema. RLE w venous stasis type changes to albright Results & Data Results & Data ([facility]) Vital Signs (Past 12 Hours) Vital Signs Temp Pulse Resp BP Pulse Ox 03/09/20 14:28 98.2 F 94 H 18 101/50 L 96 03/09/20 07:43 98.6 F 68 16 164/76 H 95 PG Care Time/CCT Total # of Minutes Spent Total Time Spent with Patient: Total time spent is greater than 50% in coordination of care (as documented) at patient's floor/unit and/or counseling patient: Coding Level of Care Code 64688 Subseq Obs Care Lvl 3 Diagnoses Hip pain M25.559 Diastolic CHF I50.30 Hypertension I10 Permanent atrial fibrillation I48.21 Parkinson disease G20 Diabetic peripheral neuropathy E11.42 Hyperlipidemia E78.5 Venous stasis I87.8 DVT prophylaxis Z29.9 Discharge planning issues Z02.9
[2020-03-09] MEDS: RIVAROXABAN 20 MG TAB PO SCH (21:13)
[2020-03-09] MEDS ORDERED: cefTRIAXone SODIUM 2,000 MG in DEXTROSE 5% 50 ML IV SCH (22:00)
[2020-03-10 05:47] LABS: Basophils # (auto) 0.02 K/uL (0-0.2); Basophils % (auto) 0.4 %; Eosinophils # (auto) 0.16 K/uL (0-0.5); Hematocrit (blood only) 41.3 % (37-47); Hemoglobin 13.5 g/dL (12.0-16.0); Immature Granulocytes # (auto) 0.01 K/uL (0.00-0.02); Immature Granulocytes % (auto) 0.2 %; Lymphocytes # (auto) 1.41 K/uL (1.2-3.4); Lymphocytes % (auto) 26.5 %; Mean Corpuscular Hemoglobin 29.3 pg (25-34); Mean Corpuscular Hgb Conc 32.7 g/dL (32-36); Mean Corpuscular Volume 89.6 fL (80-100); Mean Platelet Volume 10.5 fL (7.4-10.4); Monocytes # (auto) 0.55 K/uL (0.11-0.59); Monocytes % (auto) 10.3 %; Neutrophils # (auto) 3.17 K/uL (1.4-6.5); Neutrophils % (auto) 59.6 %; Platelet Count 176 K/uL (130-400); RDW Coefficient of Variation 15.5 % (11.5-14.5); RDW Standard Deviation 50.6 fL (36.4-46.3); Red Blood Count 4.61 M/uL (4.2-5.4); White Blood Count 5.32 K/uL (4.8-10.8)
[2020-03-10 06:24] LABS: BUN Creatinine Ratio 28.1 (10-20); Creatinine Clr Calc Pharmacy 58.5 ml/min; Est GFR (Non-African American) 55.2; Potassium 3.8 mmol/L (3.5-5.1)
--- NOTE | 2020-03-10 08:38 | Hospitalist Progress Note ---
Date of Service March 10, 2020 Assessment & Plan (1) Hip pain: Patient is a 74 year old female with PMHx Diastolic CHF, HTN, Permanent Afib, Parkinson's Dz, Diabetic Peripheral Neuropathy, HLD, who presented with difficulty with walking, /l foot pain, and possible erythema of the RLE. R Hip Pain -Likely secondary to OA flare -XR with moderate DJD of the R hip -Of note patient states she had noticed she had been leaning to the R for awhile now and she is unsure if this has been contributing to her symptoms. -PT/OT ordered -Pain control with Tylenol Sched, Voltaren gel, Meloxicam Venous Stasis -Although initial concern for RLE cellulitis, appears more venous stasis in nature -DC abx Rocephin and Bactrim -Monitor while off abx Diastolic CHF -Continue home Bumex 2mg HTN -Will continue to follow, pressures stable Permanent Afib -Not on a rate control medication, but rate stable -Continue Xarelto Parkinson's Dz -Continue Sinemet DM -DM diet -SSI Diabetic Peripheral Neuropathy -Gabapentin 600mg TID FEN/GI: HH DM2 diet DVT: Xarelto Code: Full Dispo: Med/Surg Admission and Anticipated Discharge Date Admission Date: March 08, 2020 Supervising Physician Co-Signing Physician Notes I personally examined the patient and verified all valencia points of history and exam, discussed case, and agree with decision making with Dr Baker. feeling a little better pain a little better. awaiting rehab placement vitals noted nad heent nc at mmm breathing unlabored no accessory muscles good effort no focal neuro deficits hip pain/DJD pain/muscle pain - continue pain control, PT/OT, rehab referral (failed outpt PT) otherwise as above Subjective Patient evaluated while seated at the bedside chair. Patient noting that she was feeling a little better today. Stated that if she isn't moving around she has no pain, but otherwise has pain primarily in her R hip that is manageable on current pain medications. Denies fever, chills, SOB, chest pain, abdominal pain. Review of Systems Constitutional: no fever and no chills Respiratory: no cough, no dyspnea and no pain on inspiration Cardiovascular: no chest pain and no dyspnea on exertion Gastrointestinal: + abdominal pain and + constipation; no nausea and no vomiting Genitourinary: no dysuria Musculoskeletal: + joint pain (R hip ) Physical Exam Constitutional: well developed and well nourished; no acute distress Respiratory: normal respiratory effort, lungs clear to auscultation Cardiovascular: Rate/Rhythm: + abnormal rate (irr-irr) and + abnormal rhythm Extremities: no calf tenderness and no edema Gastrointestinal (Abdomen): Inspection/Auscultation: abdomen normal to inspection and normal bowel sounds Percussion/Palpation: + abdomen tender (slight TTP in LLQ ) and abdomen soft Musculoskeletal: LE muscle strength 5/5 b/l TTP with external rotation of R hip Venous stasis changes on legs b/l, but worse on R>L, no erythema Results & Data Results & Data ([facility]) Vital Signs (Past 12 Hours) Vital Signs Temp Pulse Resp BP Pulse Ox 03/10/20 07:12 36.8 C 83 16 146/79 H 90 03/09/20 22:54 36.4 C L 67 18 123/65 90 Resident Activity Tracking Resident Involvement: Resident Care Provided Care Provided: Adult Hospital Medicine
[2020-03-10] MEDS ORDERED: ENOXAPARIN INJ 40 MG/0.4 ML SYR SQ SCH (09:00)
[2020-03-10] MEDS: CALCIUM 600MG + VIT D 400 IU TAB PO SCH (09:12)
[2020-03-10] MEDS: ASPIRIN 81 MG ECTAB PO SCH (09:12)
[2020-03-10] MEDS: GABAPENTIN 300 MG CAP PO SCH ×3 (09:12→20:56)
[2020-03-10] MEDS: ATORVASTATIN 10 MG TAB PO SCH (09:12)
[2020-03-10] MEDS: CARBIDOPA/LEVODOPA 25/100MG TAB PO SCH ×4 (09:12→20:57)
[2020-03-10] MEDS: BUMETANIDE 1 MG TAB PO SCH (09:12)
[2020-03-10] MEDS: INSULIN GLARGINE SOLOSTAR 100 UNITS/ML 3 ML PEN SC SCH (09:13)
[2020-03-10] MEDS: MELOXICAM 7.5 MG TAB PO SCH ×2 (09:14→20:56)
[2020-03-10] MEDS: SULFAMETHOXAZOLE/TRIMETHOPRIM DS 800/160MG TAB PO SCH ×2 (09:14→10:15)
[2020-03-10] MEDS: ACETAMINOPHEN 325 MG TAB PO SCH ×3 (09:15→20:58)
[2020-03-10] MEDS: DICLOFENAC SOD 1% GEL 100 GM TUBE EXT SCH ×4 (09:15→20:58)
[2020-03-10] MEDS: INSULIN ASPART 100 UNITS/ML 3 ML PEN SC SCH ×4 (09:17→20:59)
[2020-03-10] MEDS: SACCHAROMYCES BOULARDII 250 MG CAP PO SCH ×2 (10:15→20:55)
[2020-03-10] MEDS: DOCUSATE SODIUM 100 MG CAP PO SCH ×2 (13:02→20:55)
--- NOTE | 2020-03-10 17:40 | Billing Data ---
Date of Service March 10, 2020 Coding Level of Care Code 92586 Subseq Hosp Care Lvl 2
[2020-03-10] MEDS: RIVAROXABAN 20 MG TAB PO SCH (20:58)
[2020-03-11] MEDS: DICLOFENAC SOD 1% GEL 100 GM TUBE EXT SCH ×4 (09:09→19:50)
[2020-03-11] MEDS: GABAPENTIN 300 MG CAP PO SCH ×3 (09:09→19:51)
[2020-03-11] MEDS: ASPIRIN 81 MG ECTAB PO SCH (09:10)
[2020-03-11] MEDS: CARBIDOPA/LEVODOPA 25/100MG TAB PO SCH ×4 (09:10→19:50)
[2020-03-11] MEDS: SACCHAROMYCES BOULARDII 250 MG CAP PO SCH ×2 (09:10→19:50)
[2020-03-11] MEDS: ACETAMINOPHEN 325 MG TAB PO SCH ×3 (09:10→19:50)
[2020-03-11] MEDS: BUMETANIDE 1 MG TAB PO SCH (09:10)
[2020-03-11] MEDS: INSULIN ASPART 100 UNITS/ML 3 ML PEN SC SCH ×4 (09:11→20:34)
[2020-03-11] MEDS: DOCUSATE SODIUM 100 MG CAP PO SCH ×2 (09:11→19:50)
[2020-03-11] MEDS: MELOXICAM 7.5 MG TAB PO SCH ×2 (09:11→19:50)
[2020-03-11] MEDS: ATORVASTATIN 10 MG TAB PO SCH (09:11)
[2020-03-11] MEDS: CALCIUM 600MG + VIT D 400 IU TAB PO SCH (09:11)
[2020-03-11] MEDS: INSULIN GLARGINE SOLOSTAR 100 UNITS/ML 3 ML PEN SC SCH ×2 (09:12→20:33)
--- NOTE | 2020-03-11 18:20 | Hospitalist Progress Note ---
Date of Service March 11, 2020 Assessment & Plan (1) Hip pain: Patient is a 74-year-old female with PMHx. Diastolic CHF, HTN, Permanent A.fib, Parkinson's Dz., Diabetic Peripheral Neuropathy, HLD, who presented with difficulty with walking, foot pain, and right thigh pain as well as venous stasis ulcer. R. Hip Pain -Likely secondary to OA flare -XR with moderate DJD of the R. hip -Of note patient states she had noticed she had been leaning to the R for awhile now and she is unsure if this has been contributing to her symptoms. -PT/OT recommending rehab placement - follow. -Pain control with Tylenol Sched., Voltaren gel, and Meloxicam Venous Stasis -Although initial concern for RLE cellulitis, appears more consistent with venous stasis -DC abx. Rocephin and Bactrim -Lower extremity duplex negative Chronic Diastolic CHF -Continue home Bumex 2mg HTN -Will continue to follow, pressures stable Permanent A. fib -Not on a rate control medication, but rate stable -Continue Xarelto Parkinson's Dz -Continue Sinemet DM -DM diet -SSI Diabetic Peripheral Neuropathy -Gabapentin 600mg TID FEN/GI: HH, DM2 diet DVT: Xarelto Code: Full Dispo: Med/Surg Admission and Anticipated Discharge Date Admission Date: March 08, 2020 Supervising Physician Co-Signing Physician Notes Resident Physician Supervision Note: I independently interviewed and examined the patient and verified the valencia history and physical, reviewed labs and image studies, discussed the case with the resident Dr. Grove and agree with the findings and care plan. Subjective This morning she was feeling better. Her pain was 5/10. She was asking about when she might be able to get discharged. According to CM they are working on placement. Review of Systems Review of Systems: Constitutional: denies fevers, chills Cardiac: denies chest pain, palpitations Pulm: admits cough (chronic w/ associated post nasal drip) denies shortness of breath GI: admits slight nausea, denies vomiting, constipation, diarrhea : denies urinary frequency, urgency, pain Physical Exam Constitutional: well developed and well nourished Eyes: PERRL, conjunctivae normal, anicteric sclerae ENMT: external ear and nose normal, oropharynx normal Neck: normal visual inspection Respiratory: normal respiratory effort, lungs clear to auscultation Cardiovascular: RRR, no murmur, no edema Chest (Breasts): normal inspection/palpation of breasts Gastrointestinal (Abdomen): normal bowel sounds, soft, nontender, no hepatosplenomegaly Skin: - right leg with some dark hue to the skin in the lower leg - right leg ttp at and above the knee Results & Data Results & Data ([facility]) Vital Signs (Past 12 Hours) Vital Signs Temp Pulse Resp BP BP Pulse Ox 03/11/20 14:46 36.8 C 74 18 137/80 95 03/11/20 07:13 36.8 C 62 18 124/72 95 CBC Results Results Complete Blood Count Results: RBC 4.61 M/uL (4.2-5.4) 03/10/20 WBC 5.32 K/uL (4.8-10.8) 03/10/20 Hgb 13.5 g/dL (12.0-16.0) 03/10/20 Hct 41.3 % (37-47) 03/10/20 Plt Count 176 K/uL (130-400) 03/10/20 Chemistry (BMP) Results BMP Results: Sodium 139 mmol/L (136-145) 03/10/20 Potassium 3.8 mmol/L (3.5-5.1) 03/10/20 Chloride 103 mmol/L (98-107) 03/10/20 BUN 28 mg/dl (7-18) H 03/10/20 Creatinine 1.01 mg/dl (0.6-1.2) 03/10/20 Glucose 246 mg/dl (70-99) H 03/10/20 Resident Activity Tracking Resident Involvement: Resident Care Provided Care Provided: Adult [facility] Medicine
[2020-03-11] MEDS: RIVAROXABAN 20 MG TAB PO SCH (19:50)
[2020-03-11] MEDS ORDERED: ACETAMINOPHEN 325 MG TAB PO PRN (22:06)
[2020-03-12 06:26] LABS: Basophils # (auto) 0.02 K/uL (0-0.2); Basophils % (auto) 0.4 %; Eosinophils # (auto) 0.27 K/uL (0-0.5); Eosinophils % (auto) 5.8 %; Hematocrit (blood only) 43.5 % (37-47); Hemoglobin 14.2 g/dL (12.0-16.0); Immature Granulocytes # (auto) 0.01 K/uL (0.00-0.02); Immature Granulocytes % (auto) 0.2 %; Lymphocytes # (auto) 1.31 K/uL (1.2-3.4); Lymphocytes % (auto) 28.1 %; Mean Corpuscular Hgb Conc 32.6 g/dL (32-36); Mean Corpuscular Volume 88.8 fL (80-100); Mean Platelet Volume 10.7 fL (7.4-10.4); Monocytes # (auto) 0.44 K/uL (0.11-0.59); Monocytes % (auto) 9.4 %; Neutrophils # (auto) 2.61 K/uL (1.4-6.5); Neutrophils % (auto) 56.1 %; Platelet Count 189 K/uL (130-400); RDW Coefficient of Variation 15.2 % (11.5-14.5); RDW Standard Deviation 48.5 fL (36.4-46.3); White Blood Count 4.66 K/uL (4.8-10.8)
[2020-03-12 07:01] LABS: BUN Creatinine Ratio 31.8 (10-20); Creatinine Clr Calc Pharmacy 60.3 ml/min; Est GFR (African American) 66.3; Est GFR (Non-African American) 57.2; Potassium 3.8 mmol/L (3.5-5.1)
[2020-03-12] MEDS: INSULIN ASPART 100 UNITS/ML 3 ML PEN SC SCH ×4 (08:28→20:43)
[2020-03-12] MEDS: CALCIUM 600MG + VIT D 400 IU TAB PO SCH (08:32)
[2020-03-12] MEDS: BUMETANIDE 1 MG TAB PO SCH (08:32)
[2020-03-12] MEDS: ASPIRIN 81 MG ECTAB PO SCH (08:32)
[2020-03-12] MEDS: MELOXICAM 7.5 MG TAB PO SCH ×2 (08:32→20:47)
[2020-03-12] MEDS: GABAPENTIN 300 MG CAP PO SCH ×3 (08:33→20:46)
[2020-03-12] MEDS: CARBIDOPA/LEVODOPA 25/100MG TAB PO SCH ×4 (08:33→20:43)
[2020-03-12] MEDS: ACETAMINOPHEN 325 MG TAB PO SCH ×3 (08:33→20:46)
[2020-03-12] MEDS: ATORVASTATIN 10 MG TAB PO SCH (08:34)
[2020-03-12] MEDS: SACCHAROMYCES BOULARDII 250 MG CAP PO SCH ×2 (08:34→20:47)
[2020-03-12] MEDS: DOCUSATE SODIUM 100 MG CAP PO SCH ×2 (08:34→20:47)
[2020-03-12] MEDS: INSULIN GLARGINE SOLOSTAR 100 UNITS/ML 3 ML PEN SC SCH ×2 (08:36→20:44)
[2020-03-12] MEDS: DICLOFENAC SOD 1% GEL 100 GM TUBE EXT SCH ×4 (08:43→20:44)
--- NOTE | 2020-03-12 11:39 | Hospitalist Progress Note ---
Date of Service March 12, 2020 Assessment & Plan (1) Hip pain: Patient is a 74-year-old female with PMHx. Diastolic CHF, HTN, Permanent A.fib, Parkinson's Dz., Diabetic Peripheral Neuropathy, HLD, who presented with difficulty with walking, foot pain, and right thigh pain as well as venous stasis ulcer. R. Hip Pain -Likely secondary to OA flare -XR with moderate DJD of the R. hip -PT/OT ordered- awaiting rehab placement. -Pain control with Tylenol Sched., Voltaren gel, and Meloxicam Venous Stasis -Although initial concern for RLE cellulitis, appears more consistent with venous stasis -DC abx. Rocephin and Bactrim -Lower extremity duplex negative Diastolic CHF -Continue home Bumex 2mg HTN -Will continue to follow, pressures stable Permanent A. fib -Not on a rate control medication, but rate stable -Continue Xarelto Parkinson's Dz -Continue Sinemet DM -DM diet -SSI Diabetic Peripheral Neuropathy -Gabapentin 600mg TID Left dorsal hand ecchymosis - likely d/t slight unintentional trauma overnight - continue to monitor FEN/GI: HH, DM2 diet DVT: Xarelto Code: Full Dispo: Med/Surg Admission and Anticipated Discharge Date Admission Date: March 08, 2020 Supervising Physician Co-Signing Physician Notes Resident Physician Supervision Note: I independently interviewed and examined the patient and verified the valencia history and physical, reviewed labs and image studies, discussed the case with the resident Dr. Grove and agree with the findings and care plan. Subjective Doing well this morning, pain better. Notes flare with walking. She had noted a bruise that developed along with some swelling overnight. She does not recall any trauma or IV or blood tests in that area. Swelling had improved by the morning. Patient brought up that she had not had a bowel movement in 4 days, she does alternate from constipation to diarrhea and stated that this is common for her. We discussed that she had Miralax available. Did a [id number] with insurance to work on authorization for [facility]. Physician brought up that the patient was doing well in physical therapy and would only be able to qualify for short term rehabilitation. Review of Systems Review of Systems: Constitutional: denies fevers, chills Cardiac: denies chest pain, palpitations Pulm: admits cough (chronic w/ associated post nasal drip) denies shortness of breath GI: admits slight nausea, denies vomiting, constipation, diarrhea : denies urinary frequency, urgency, pain Physical Exam Constitutional: well developed and well nourished Eyes: PERRL, conjunctivae normal, anicteric sclerae ENMT: external ear and nose normal, oropharynx normal Neck: normal visual inspection Respiratory: normal respiratory effort, lungs clear to auscultation Cardiovascular: - irregular rate - 1+ pitting edema bilaterally Chest (Breasts): normal inspection/palpation of breasts Gastrointestinal (Abdomen): normal bowel sounds, soft, nontender, no hepatosplenomegaly Skin: - ecchymosis of the dorsal aspect of the hand w/o swelling Results & Data Results & Data ([facility]) Vital Signs (Past 12 Hours) Vital Signs Temp Pulse Resp BP Pulse Ox 03/12/20 07:01 36.6 C 72 20 146/77 H 96 CBC Results Results Complete Blood Count Results: RBC 4.90 M/uL (4.2-5.4) 03/12/20 WBC 4.66 K/uL (4.8-10.8) L 03/12/20 Hgb 14.2 g/dL (12.0-16.0) 03/12/20 Hct 43.5 % (37-47) 03/12/20 Plt Count 189 K/uL (130-400) 03/12/20 Chemistry (BMP) Results BMP Results: Sodium 139 mmol/L (136-145) 03/12/20 Potassium 3.8 mmol/L (3.5-5.1) 03/12/20 Chloride 103 mmol/L (98-107) 03/12/20 BUN 31 mg/dl (7-18) H 03/12/20 Creatinine 0.98 mg/dl (0.6-1.2) 03/12/20 Glucose 138 mg/dl (70-99) H 03/12/20 Resident Activity Tracking Resident Involvement: Resident Care Provided Care Provided: Adult [facility] Medicine
[2020-03-12] MEDS: RIVAROXABAN 20 MG TAB PO SCH (20:46)
[2020-03-13 07:35] LABS: Basophils # (auto) 0.01 K/uL (0-0.2); Basophils % (auto) 0.2 %; Eosinophils # (auto) 0.24 K/uL (0-0.5); Eosinophils % (auto) 5.7 %; Hematocrit (blood only) 43.7 % (37-47); Hemoglobin 14.4 g/dL (12.0-16.0); Immature Granulocytes # (auto) 0.02 K/uL (0.00-0.02); Immature Granulocytes % (auto) 0.5 %; Lymphocytes # (auto) 1.25 K/uL (1.2-3.4); Lymphocytes % (auto) 29.8 %; Mean Corpuscular Hemoglobin 29.3 pg (25-34); Mean Platelet Volume 10.3 fL (7.4-10.4); Monocytes # (auto) 0.44 K/uL (0.11-0.59); Monocytes % (auto) 10.5 %; Neutrophils # (auto) 2.23 K/uL (1.4-6.5); Neutrophils % (auto) 53.3 %; Platelet Count 205 K/uL (130-400); RDW Coefficient of Variation 15.2 % (11.5-14.5); Red Blood Count 4.91 M/uL (4.2-5.4); White Blood Count 4.19 K/uL (4.8-10.8)
[2020-03-13 08:04] LABS: Calcium 8.9 mg/dl (8.5-10.1); Potassium 3.7 mmol/L (3.5-5.1)
[2020-03-13 08:13] LABS: BUN Creatinine Ratio 30.8 (10-20); Creatinine Clr Calc Pharmacy 56.2 ml/min; Est GFR (Non-African American) 52.6
[2020-03-13] MEDS: DOCUSATE SODIUM 100 MG CAP PO SCH (08:19)
[2020-03-13] MEDS: MELOXICAM 7.5 MG TAB PO SCH (08:19)
[2020-03-13] MEDS: BUMETANIDE 1 MG TAB PO SCH (08:19)
[2020-03-13] MEDS: CALCIUM 600MG + VIT D 400 IU TAB PO SCH (08:19)
[2020-03-13] MEDS: SACCHAROMYCES BOULARDII 250 MG CAP PO SCH (08:19)
[2020-03-13] MEDS: ACETAMINOPHEN 325 MG TAB PO SCH ×2 (08:20→13:35)
[2020-03-13] MEDS: ASPIRIN 81 MG ECTAB PO SCH (08:20)
[2020-03-13] MEDS: ATORVASTATIN 10 MG TAB PO SCH (08:20)
[2020-03-13] MEDS: GABAPENTIN 300 MG CAP PO SCH ×2 (08:20→13:35)
[2020-03-13] MEDS: CARBIDOPA/LEVODOPA 25/100MG TAB PO SCH ×2 (08:21→13:06)
[2020-03-13] MEDS: DICLOFENAC SOD 1% GEL 100 GM TUBE EXT SCH ×2 (08:22→13:08)
[2020-03-13] MEDS: INSULIN GLARGINE SOLOSTAR 100 UNITS/ML 3 ML PEN SC SCH (08:22)
[2020-03-13] MEDS: INSULIN ASPART 100 UNITS/ML 3 ML PEN SC SCH ×2 (08:23→13:05)
[2020-03-13] MEDS ORDERED: ESCITALOPRAM OXALATE 10 MG TAB PO SCH (09:45)
--- NOTE | 2020-03-13 11:26 | Discharge Summary ---
Date of Service March 13, 2020 Admission HPI Per Admitting Provider The patient is a 74-year-old female with a past medical history including severe diabetic peripheral neuropathy, diabetes mellitus type 2 with retinopathy, diastolic CHF, hyperlipidemia, hypertension, history of syncope, permanent atrial fibrillation on Xarelto, Parkinson's disease, acoustic neuroma, ataxic gait, cerebrovascular disease, depression, migraine, REM sleep behavior disorder, sensorineural hearing loss of both ears, UTI, GERD and left knee joint replacement status. The patient's main complaint is that she is unable to walk at home even with her walker, due to severe bilateral pain along the bottom of her feet which periodically shoots up her legs toward her thighs. She also notes some erythema right lower extremity. Admission Exam Per Admitting Provider The patient is awake, alert and oriented 3, well developed and well nourished, normocephalic and atraumatic, lying in bed and in no acute distress. HEENT--PERRL, EOMI, mucous membranes and oropharynx normal. Neck--supple. No JVD. No bruits. Thyroid normal, trachea midline, no adenopathy. Heart--normal S1 and S2. No murmurs, rubs or gallops. Lungs--clear bilaterally, no respiratory distress, no accessory muscle use. Abdomen--normal bowel sounds and soft. Nontender. Nondistended. Obese. Extremities--no cyanosis or clubbing. 1+ bilateral pretibial pitting edema. There are good distal pulses b/l. Dermatologic--mild erythema and warmth anterior surface right lower extremity below the knee and above the ankle Neurologic--cranial nerves II through XII grossly intact. Rheumatologic--normal range of motion. Psychiatric--normal affect. Principal Diagnosis right hip pain venous stasis ulcer Discharge Exam Constitutional: well developed and well nourished Eyes: PERRL, conjunctivae normal, anicteric sclerae ENMT: external ear and nose normal, oropharynx normal Neck: normal visual inspection Respiratory: normal respiratory effort, lungs clear to auscultation Cardiovascular: - irregular rate - 1+ pitting edema bilaterally Chest (Breasts): normal inspection/palpation of breasts Gastrointestinal (Abdomen): normal bowel sounds, soft, nontender, no hepatosplenomegaly Skin: - ecchymosis of the dorsal aspect of the hand w/o swelling Discharge Data Allergies Allergy/AdvReac Type Severity Reaction Status Date / Time benztropine Allergy Unknown UNKNOWN Verified 03/08/20 23:04 citalopram Allergy Unknown UNKNOWN Verified 03/08/20 23:04 simvastatin Allergy Unknown UNK Verified 03/08/20 23:04 sulindac Allergy Unknown UNKNOWN Verified 03/08/20 23:04 doxycycline AdvReac Mild NAUSEA Verified 03/08/20 23:04 minocycline AdvReac Mild NAUSEA Verified 03/08/20 23:04 Consultations 03/08/20 22:27 ED Decision to Admit Stat 03/09/20 00:34 Consult Case Management - Discharge Planning Routine Ordered Studies 03/08/20 19:26 US arterial duplex LE RT Stat US venous doppler LE RT Stat Hospital Course (1) Venous stasis: Patient is a 74-year-old female with PMHx. Diastolic CHF, HTN, Permanent A.fib, Parkinson's Dz., Diabetic Peripheral Neuropathy, HLD, who presented with difficulty with walking, foot pain, and right thigh pain as well as venous stasis ulcer. R. Hip Pain -Likely secondary to OA flare -XR with moderate DJD of the R. hip -PT/OT rec rehab placement. -Pain control with Tylenol Sched., Voltaren gel, and Meloxicam 7.5 BID Venous Stasis -Although initial concern for RLE cellulitis, appears more consistent with venous stasis -DC abx. Rocephin and Bactrim -Lower extremity duplex negative Chronic Diastolic CHF -Continue home Bumex 2mg -follow daily weights and fluid status HTN -Will continue to follow, pressures stable Permanent A. fib -Not on a rate control medication, but rate stable -Continue Xarelto Parkinson's Dz -Continue Sinemet DM -DM diet -SSI Diabetic Peripheral Neuropathy -Gabapentin 600mg TID Anxiety - Continue Lexapro 10 mg daily Left dorsal hand ecchymosis (improved) - likely d/t slight unintentional trauma overnight FEN/GI: HH, DM2 diet DVT: Xarelto Code: Full (2) Hip pain: (3) Lower extremity pain, right: Total Time Total Time Spent Total Time Spent (In Minutes): see attending attestation Discharge Plan Discharge Items Patient Disposition: Transfer Half-Way Fac Reason For Visit: RLE CELLULITIS, WORSENING GPN Discharge Diagnosis: right hip osteoarthritis Condition on Discharge: Good Activity: Per Instructions section Non-emergency contact: Primary Care Provider Call non-emergency contact if: your symptoms worsen and your temperature is above 101 Follow-up/Referrals: Damaris Vega MD [Primary Care Provider] - Diet: Regular Addtl Attending Provider Instructions: Patient is a 74 year old female with PMHx Diastolic CHF, HTN, Permanent Afib, Parkinson's Dz, Diabetic Peripheral Neuropathy, HLD, who presented with difficulty with walking, right foot pain, and possible erythema of the RLE. R Hip Pain -Likely secondary to OA flare -XR with moderate DJD of the R hip -Continue PT/OT -Pain control with Tylenol Sched., Voltaren gel, Meloxicam Venous Stasis -Although initial concern for RLE cellulitis, appears more venous stasis in nature -White count WNL, afebrile and normal heart rate, legs stable with no erythema and only slight tenderness to palpation -stopped Rocephin and Bactrim -duplex of lower extremity negative for DVT Diastolic CHF -Continue home Bumex 2mg HTN -Pressures stable during hospitalization Permanent Afib -Not on a rate control medication, but rate stable -Continue Xarelto Parkinson's Dz -Continue Sinemet DM -DM diet -sliding scale insulin Diabetic Peripheral Neuropathy -Gabapentin 600mg TID Anxiety -Continue Escitalopram 10 mg daily FEN/GI: Heart healthy, DM2 diet Pending Studies at Discharge: Yes Studies:: blood cultures negative at 48 hours Stand-Alone Forms: My [facility] [place] Skilled Items Patient informed of condition?: Yes DNR: No Discharge Level of Care: Skilled Communicable Disease: No Discharge Prognosis: Stable Lines: Peripheral IV Urinary Catheter: No Medications and DC Order Prescriptions: New escitalopram oxalate 10 mg Tablet 10 mg PO QAM 30 Days Qty: 30 RF: 0 Continued insulin lispro [Humalog U-100 Insulin] 100 unit/mL solution See Rx Instructions SQ UD Qty: 9 RF: 3 gabapentin 300 mg Capsule 600 mg PO HS RF: 0 diclofenac sodium 3 % Gel 1 applic TOPICAL BID RF: 0 gabapentin 300 mg capsule 600 mg PO QAM Qty: 60 RF: 0 aspirin [Aspirin Low Dose] 81 mg tablet,delayed release (DR/EC) 81 mg PO DAILY RF: 0 calcium carbonate-vitamin D3 [Calcium 500 + D] 500 mg(1,250mg) -200 unit tablet 1 tab PO DAILY RF: 0 atorvastatin 10 mg tablet 10 mg PO DAILY RF: 0 bumetanide 1 mg tablet See Rx Instructions .ROUTE .COMPLEX Qty: 30 RF: 0 lorazepam 0.5 mg tablet 0.5 mg PO BID PRN (Reason: Anxiety) RF: 0 Xarelto 20 mg tablet 20 mg PO QPM RF: 0 carbidopa-levodopa 25-100 mg tablet 2 tab PO QID RF: 0 Saccharomyces boulardii [Florastor] 250 mg capsule 250 mg PO BID Qty: 20 RF: 0 Discharge Orders: Discharge Order (Routine); Ordered 03/13/20 Ordered By: Huy Johnson/Other Patient Handouts: Managing Type 2 Diabetes Admission Data Admit Date/Time: 03/08/20 23:32 Attending Provider: Susan Garcia Admit Provider: Dani Lopez Primary Care Provider: Damaris Vega Other Providers: Dani Lopez ; [facility] ; Renzo Lofton ; [facility] ; [facility] Other Interventions: Discharge Summary Assessment (RN) Last Done: 03/13/20 13:16 Supervising Physician Co-Signing Physician Notes Resident Physician Supervision Note: I independently interviewed and examined the patient and verified the valencia history and physical, reviewed labs and image studies, discussed the case with the resident Dr. Grove and agree with the findings and care plan.
== END 2020-03-13 14:06 ==
LOC: ED 19:18 → 2N 19:18 → SUATTDRO 23:32 → 2N 23:57

== ENCOUNTER 2020-06-08 08:21 | Inpatient (IN) ==
[2020-06-08] MEDS ORDERED: SODIUM CHLORIDE 0.9% 1000ML 1,000 ML IV SCH (08:45)
[2020-06-08 09:52] LABS: Basophils # (auto) 0.01 K/uL (0-0.2); Basophils % (auto) 0.1 %; Eosinophils # (auto) 0.02 K/uL (0-0.5); Eosinophils % (auto) 0.2 %; Hematocrit (blood only) 42.8 % (37-47); Hemoglobin 14.6 g/dL (12.0-16.0); Immature Granulocytes # (auto) 0.02 K/uL (0.00-0.02); Immature Granulocytes % (auto) 0.2 %; Lymphocytes # (auto) 0.62 K/uL (1.2-3.4); Lymphocytes % (auto) 6.5 %; Mean Corpuscular Hemoglobin 30.2 pg (25-34); Mean Corpuscular Hgb Conc 34.1 g/dL (32-36); Mean Corpuscular Volume 88.6 fL (80-100); Mean Platelet Volume 10.3 fL (7.4-10.4); Monocytes # (auto) 0.68 K/uL (0.11-0.59); Monocytes % (auto) 7.2 %; Neutrophils # (auto) 8.12 K/uL (1.4-6.5); Neutrophils % (auto) 85.8 %; Platelet Count 177 K/uL (130-400); RDW Coefficient of Variation 14.3 % (11.5-14.5); RDW Standard Deviation 46.8 fL (36.4-46.3); Red Blood Count 4.83 M/uL (4.2-5.4); White Blood Count 9.47 K/uL (4.8-10.8)
--- NOTE | 2020-06-08 09:53 | CT Scan Report ---
CT SCAN OF THE BRAIN WITHOUT IV CONTRAST CLINICAL HISTORY: Trauma. COMPARISON STUDY: CT of the brain dated 02/16/2020. TECHNIQUE: Unenhanced axial CT scan of the brain is performed from the vertex to the skull base. A do se lowering technique was utilized adhering to the principles of ALARA. CT DOSE: 537.48 mGy.cm FINDINGS: Brain parenchyma: There are age-related involutional changes noting mild subcortical and periventric ular microangiopathic change. There is no hemorrhage, mass effect, or evidence of acute territorial i schemia by CT criteria. Kendrick-white matter differentiation is preserved. No extra-axial fluid collecti on is seen. Ventricles, sulci, cisterns: Prominent secondary to involutional change. Intracranial vasculature: There is atherosclerotic calcification of the cavernous carotid and vertebr al arteries. Calvarium: The skeletal structures are osteopenic. There is no depressed calvarial fracture. Sinuses and mastoids: The visualized paranasal sinuses are clear. The mastoid air cells are well pneu matized. Orbits: The bony orbits are grossly intact. Postoperative change is noted involving the left globe. IMPRESSION: There is no hemorrhage, mass effect, or evidence of acute territorial ischemia by CT maximiliant shea. ACT 112: Negative or not required by law. Electronically signed by: Keith Grace M.D. 06/08/2020 9:52 AM
[2020-06-08 10:01] LABS: Appearance Urine Clear (Clear); Bacteria Urine Automated Negative (Negative); Blood Urine Negative (Negative); Color Urine Dark Yellow; Epithelial Cell Urine Auto 0-5 /lpf (0-5); Glucose Urine UA Negative (Negative); Ketones Urine 1+ (Negative); Leukocyte Esterase Urine Trace (Negative); Nitrite Urine Negative (Negative); Protein Urine Trace (Negative); Specific Gravity Urine 1.032 (1.000-1.030); Urobilinogen Urine Negative (Negative); WBC Urine Automated 0 /hpf (0-5)
[2020-06-08 10:02] LABS: INR 1.3 (0.9-1.1)
--- NOTE | 2020-06-08 10:14 | XRay Report ---
SINGLE VIEW CHEST CLINICAL HISTORY: Generalized weakness. FINDINGS: An AP, portable, upright chest radiograph is compared to study dated 03/08/2020. The examina tion is degraded by portable technique and patient rotation. The heart is enlarged noting atheroscler otic calcification of the thoracic aorta. Pulmonary vasculature is noncongested. Chronic interstitial thickening is similar to previous. The lungs and pleural spaces are clear. No pneumothorax is seen. The skeletal structures are osteopenic. There are healed right-sided rib fractures. IMPRESSION: Cardiomegaly with no acute cardiopulmonary abnormality. ACT 112: Negative or not required by law. Electronically signed by: Keith Grace M.D. 06/08/2020 10:13 AM
[2020-06-08 10:31] LABS: Alanine Aminotransferase 19 U/L (12-78); Albumin Level 3.6 gm/dl (3.4-5.0); Aspartate Aminotransferase 40 U/L (15-37); BUN Creatinine Ratio 32.3 (10-20); Blood Urea Nitrogen 24 mg/dl (7-18); Calcium 9.1 mg/dl (8.5-10.1); Carbon Dioxide 26 mmol/L (21-32); Chloride 108 mmol/L (98-107); Creatinine Clr Calc Pharmacy 73.7 ml/min; Est GFR (African American) 91.7; Est GFR (Non-African American) 79.1; Glucose 72 mg/dl (70-99); Potassium 3.5 mmol/L (3.5-5.1); Sodium 142 mmol/L (136-145)
[2020-06-08 10:42] LABS: Bilirubin Urine 1+ (Negative)
[2020-06-08 10:45] LABS: Ictotest Urine Positive (Negative)
[2020-06-08 10:46] LABS: Albumin Globulin Ratio 1.1 (0.9-2); Alkaline Phosphatase 92 U/L (45-117); Bilirubin,Total 2.4 mg/dl (0.2-1); Creatine Kinase 1091 U/L (26-192); Globulin 3.2 gm/dl (2.5-4.0); Total Protein 6.8 gm/dl (6.4-8.2); Troponin I < 0.015 ng/ml (0-0.045)
--- NOTE | 2020-06-08 10:50 | Electrocardiogram Report ---
Test Reason : Blood Pressure : / mmHG Vent. Rate : 075 BPM Atrial Rate : 060 BPM P-R Int : 000 ms QRS Dur : 092 ms QT Int : 390 ms P-R-T Axes : 000 -41 074 degrees QTc Int : 435 ms Atrial fibrillation Left axis deviation Poor R wave progression, consider anterior GA vs. lead placement vs. LVH Abnormal ECG When compared with ECG of 08-MAR-2020 19:50, No significant change was found Confirmed by Tarun Briones ([id number]) on 06/08/2020 10:50:09 AM Referred By: Confirmed By:Nicho Briones
--- NOTE | 2020-06-08 12:14 | History & Physical Report ---
Date of Service June 08, 2020 Assessment & Plan (1) Falls: Suspect secondary to ataxia but also lightheadedness noted prior to fall concerning for orthostatic hypotension. Orthostatics qshift as below. Monitor for pauses on telemetry. No need to repeat echocardiogram as recently done in January and non-contributory. She also reports decreasing gabapentin helped in March therefore will discontinue her morning dose of this and only give it to her at night - consider stopping all together if no change in her peripheral neuropathy or back pain. (2) Rhabdomyolysis: Very mild. Continue conservative NSS overnight due to history of diastolic HF. Hold bumex. Repeat CPK with Am labs. (3) Orthostatic dizziness: Prior history of this. Orthostatics qshift. Call provider if sBP drop from lying to standing > 20. Last bumetanide 1 week ago therefore does not appear to be contributory in this instance. Likely secondary to Parkinson's disease. (4) Ataxic gait: Suspected secondary to Parkinson's and diabetic peripheral neuropathy. (5) Parkinson disease: Continue Sinemet at current dosing - patient reports her Parkinson's symptoms such as rigidity, tremors and bradykinesia are stable on current Sinemet dosing. (6) Diabetic peripheral neuropathy: Reduce gabapentin as above. No significant pain - mainly numbness. No prior B12 level on file therefore will add this to AM labs. (7) Type 2 diabetes mellitus with retinopathy, with long-term current use of in sulin: HbA1c with a.m. labs, previously 6.5 in February. T2DM diet Consult pharmacy for glycemic control (8) A-fib: On no rate controlling medications. Continue Xarelto for anticoagulation. (9) DVT prophylaxis: Xarelto as above Admission and Anticipated Discharge Date Admission Date: 06/08/2020 History of Present Illness Chief Complaint: Fall Primary Care Provider: Damaris Vega MD Lainey Lainez is a 74 year old female who presents to the ER via EMS due to a fall at home. She lives by herself. She has permanent ambulatory dysfunction as a consequence of diabetic peripheral neuropathy and Parkinson's disease. She does note increased dizziness (lightheadedness) prior to the fall but also loss of balance while turning in her laundry room. She denies any chest pain, room spinning sensation or shortness of breath prior to falling. This is similar to the dizziness she has felt on prior occasions. She reports recently decreasing her dose of gabapentin which is helped improve this dizziness and is currently taking 300 mg twice daily. She fell at 11 PM last night and spent night on the floor. Approximately 11 AM today she managed to alert her son via her Echo device who subsequently called for an ambulance. She is currently taking Xarelto for anticoagulation in the setting of atrial fibrillation. Other than some mild elbow pain she denies any other injuries from the fall. She reports rigidity, tremors and bradykinesia is at baseline and will follow up with Dr. Wen for her Parkinson's in June per routine. In the ER CT head and chest x-ray were unremarkable. CPK was mildly raised at 1091 U/L. Bilirubin 2.4 (she denies any abdominal pain). She was referred to medicine for admission and ongoing management of weakness, fall, rhabdomyolysis and ambulatory dysfunction. Allergies Allergy/AdvReac Type Severity Reaction Status Date / Time benztropine Allergy Unknown UNKNOWN Verified 03/08/20 23:04 citalopram Allergy Unknown UNKNOWN Verified 03/08/20 23:04 simvastatin Allergy Unknown UNK Verified 03/08/20 23:04 sulindac Allergy Unknown UNKNOWN Verified 03/08/20 23:04 doxycycline AdvReac Mild NAUSEA Verified 03/08/20 23:04 minocycline AdvReac Mild NAUSEA Verified 03/08/20 23:04 Home Medications Medication Instructions Recorded Confirmed Type aspirin 81 mg tablet,delayed 81 mg PO HS tab 01/19/19 06/08/20 History release atorvastatin 10 mg tablet 10 mg PO QAM tab 01/19/19 06/08/20 History calcium carbonate 500 mg (1,250 1 tab PO QAM tab 01/19/19 06/08/20 History mg)-vitamin D3 200 unit tablet bumetanide See Rx Instructions .ROUTE 08/31/19 06/08/20 Rx .COMPLEX #30 tab Xarelto 20 mg PO QPM 11/08/19 06/08/20 History lorazepam 0.5 mg PO BID PRN 11/08/19 06/08/20 History insulin lispro 100 unit/mL See Rx Instructions SQ UD #9 vial 01/08/20 06/08/20 Rx subcutaneous solution carbidopa-levodopa 2 tab PO QID 02/07/20 06/08/20 History diclofenac sodium 1 applic TOPICAL BID 02/16/20 06/08/20 History gabapentin 300 mg PO BID 02/16/20 06/08/20 History Past Med/Surg History Medical History Alteration in tactile sense Anxiety CHF (congestive heart failure) Diabetes GERD (gastroesophageal reflux disease) History of TIA (transient ischemic attack) Hypertension Mitral valve disorder Obesity Parkinson disease Permanent atrial fibrillation Right arm numbness Slurred speech Surgical History H/O breast biopsy History of eye surgery Knee joint replacement status S/P appendectomy S/P cholecystectomy Family History Mother Colorectal cancer Congestive heart failure Diabetes Hypertension Brother Colorectal cancer Congestive heart failure Sister Cancer Unknown Pancreatic cancer Social History Smoking Status: Never smoker Second Hand Exposure: No; Do You Dip or Chew Tobacco: No; Tobacco Cessation Education Requested by Patient: No Hx Alcohol Use: Yes Alcohol type: wine Hx Substance Use: No Preferred Language: [place] Communication Ability: Effective Edge Burnisher Required: No Beliefs That Will Affect Care: None marital status: Current Living Situation: Alone How many Children do You have: 2 Other Information That Helps Us Care for You: No Feels Safe at Home: Yes Safety Concerns: Feels Safe At This Time Assistive Devices: Glasses and Walker Review of Systems Review of Systems: All systems reviewed & are unremarkable except as noted in HPI & below Physical Exam Constitutional: well developed and well nourished; no acute distress Eyes: PERRL, conjunctivae normal, anicteric sclerae ENMT: external ear and nose normal, oropharynx normal Neck: trachea midline, no thyromegaly Respiratory: normal respiratory effort, lungs clear to auscultation Cardiovascular: Rate/Rhythm: regular rate and + irregularly irregular Heart Sounds: no murmur Vessels: no JVD Extremities: normal capillary refill; no calf tenderness and no pedal edema Gastrointestinal (Abdomen): normal bowel sounds, soft, nontender, no hepatosplenomegaly Neurologic: moves all extremities and awake; no focal motor deficits and not confused Motor/Sensory: + tremor (Bilateral resting pill-rolling tremors with increased tone equal b/l) and + sensory deficit (Numbness distal to ankle and stocking distribution bilaterally equal); no pronator drift Cranial Nerves: PERRL and normal facial strength Psychiatric: Orientation: alert and oriented x 3 Genitourinary: no CVA tenderness Results & Data Results & Data ([facility]) Vital Signs (Past 12 Hours) Vital Signs Temp Pulse Resp BP Pulse Ox 06/08/20 11:00 74 17 124/64 97 06/08/20 10:30 71 16 138/60 97 06/08/20 10:00 88 16 119/80 98 06/08/20 09:50 80 17 157/84 H 98 06/08/20 09:07 96 06/08/20 08:27 36.7 C 67 18 159/71 H 97 06/08/20 08:26 79 20 159/[address] SCAN OF THE BRAIN WITHOUT IV CONTRAST IMPRESSION: There is no hemorrhage, mass effect, or evidence of acute territorial ischemia by CT criteria. SINGLE VIEW CHEST IMPRESSION: Cardiomegaly with no acute cardiopulmonary abnormality. Medications Administered ER Medication given: NSS @ 125 ml/hr ECG Indication: other (Fall) Rate (beats per minute): 75 Rhythm: atrial fibrillation Findings: + other (Poor R wave progression) Comparison ECG Date: from (March 08, 2020) Change: no significant change Code Status & VTE Plan Code Status Full VTE Prophylaxis Plan VTE Prophylaxis will be ordered: Yes PG Care Time/CCT Total # of Minutes Spent Total Time Spent with Patient: Total time spent is greater than 50% in coordination of care (as documented) at patient's floor/unit and/or counseling patient: Coding Level of Care Code 02369 Initial Inpt Care Lvl 3 Diagnoses Falls W19.XXXA Rhabdomyolysis M62.82 Orthostatic dizziness R42 Ataxic gait R26.0 Parkinson disease G20 Diabetic peripheral neuropathy E11.42 Type 2 diabetes mellitus with retinopathy, with long-term current use of insulin E11.319; Z79.4 A-fib I48.91 DVT prophylaxis Z29.9
[2020-06-08] MEDS ORDERED: CARBIDOPA/LEVODOPA 25/100MG TAB PO STA (12:21)
[2020-06-08] MEDS ORDERED: ONDANSETRON INJ 2 MG/ML 2 ML VIAL IV PRN (13:18)
[2020-06-08] MEDS ORDERED: ALUMINUM/MAGNESIUM SUSP 30 ML UDC PO PRN (13:18)
[2020-06-08] MEDS ORDERED: CARBIDOPA/LEVODOPA 25/100MG TAB PO SCH ×2 (13:18→23:00)
[2020-06-08] MEDS ORDERED: POLYETHYLENE (MIRALAX) 17 GM PACK PO PRN (13:18)
[2020-06-08] MEDS ORDERED: PHARMACY GLYCEMIC MGMT CONSULT PRN (13:26)
--- NOTE | 2020-06-08 13:39 | Pharmacy Report ---
Pharmacy Glycemic Short Note 2 - Date of Service June 08, 2020 - Glycemic Short BSG Results (Last 24 hours): 06/08/20 09:28 Glucose 72 OUTPATIENT ANTIDIABETIC REGIMEN: * Humalog insulin pump - basal 1.5 units/hr * bolus 10 units before meals, CR 1:7, CF of 25 for BSGs >150 ASSESSMENT: * Patient admitted s/p fall. PMHx significant for type 2 diabetes, parkinsons, afib. Managed on insulin pump at home for diabetes. Most recent A1c of 6.5% in February. Follows ANNIA Young for diabetes management * Spoke with nurse and patient does not know pump settings/not comfortable with patient on pump. Plan to utilize basal bolus insulin and transition off insulin pump * Plan to give basal (based upon outpatient notes) and overlap with pump for a couple hours PLAN FOR INPATIENT GLYCEMIC CONTROL: * Hold outpatient oral diabetes medications * Basal insulin * Lantus 36 units x 1 * Bolus insulin * NovoLog per scale ACHS or Q6hrs while NPO * Goal Range: Low 110 mg/dL - High 150 mg/dL * Correction Factor: 25 mg/dL/unit * Nutritional / Prandial insulin per carb ratio of 1 unit per 7 grams CHO consumed PLAN FOR DISCHARGE: * tbd
[2020-06-08] MEDS: CARBIDOPA/LEVODOPA 25/100MG TAB PO SCH ×2 (15:24→19:40)
--- NOTE | 2020-06-08 16:43 | Emergency Department Note ---
History of Present Illness General Chief complaint: Fall Time Seen by Provider: 06/08/20 08:29 Source: patient and EMS Mode of arrival: ambulatory Limitations: no limitations History of Present Illness Provider complaint: Fall, weakness, unable to get up Maximum Pain Intensity: 4 This patient is a 74-year-old female who presents to the emergency department with complaints of a fall late last night. She states she was in her laundry room and lost her balance. She was on the floor for approximately 8 hours, crawling "an inch at a time" and was unable to get herself up. She did not want to wake up her son and did not have her phone with her. She states early this morning she used her Trisha to call her son. He called EMS who arrived. The patient initially attempted to refuse transport but was unable to walk and was very weak. She denies any recent illness, cough, fever, vomiting or diarrhea. She does take Xarelto for atrial fibrillation. Patient also fell several weeks ago. She has a bruise across the top of her back that is healing. Home Medications Medication Instructions Recorded Confirmed Type aspirin 81 mg tablet,delayed 81 mg PO HS tab 01/19/19 06/08/20 History release atorvastatin 10 mg tablet 10 mg PO QAM tab 01/19/19 06/08/20 History calcium carbonate 500 mg (1,250 1 tab PO QAM tab 01/19/19 06/08/20 History mg)-vitamin D3 200 unit tablet bumetanide See Rx Instructions .ROUTE 08/31/19 06/08/20 Rx .COMPLEX #30 tab Xarelto 20 mg PO QPM 11/08/19 06/08/20 History lorazepam 0.5 mg PO BID PRN 11/08/19 06/08/20 History insulin lispro 100 unit/mL See Rx Instructions SQ UD #9 vial 01/08/20 06/08/20 Rx subcutaneous solution carbidopa-levodopa 2 tab PO QID 02/07/20 06/08/20 History diclofenac sodium 1 applic TOPICAL BID 02/16/20 06/08/20 History gabapentin 300 mg PO BID 02/16/20 06/08/20 History Allergies Allergy/AdvReac Type Severity Reaction Status Date / Time benztropine Allergy Unknown UNKNOWN Verified 03/08/20 23:04 citalopram Allergy Unknown UNKNOWN Verified 03/08/20 23:04 simvastatin Allergy Unknown UNK Verified 03/08/20 23:04 sulindac Allergy Unknown UNKNOWN Verified 03/08/20 23:04 doxycycline AdvReac Mild NAUSEA Verified 03/08/20 23:04 minocycline AdvReac Mild NAUSEA Verified 03/08/20 23:04 Past Med/Surg History Medical History (Updated 06/09/20 @ 13:22 by Lidya Barnes MD) Alteration in tactile sense Anxiety CHF (congestive heart failure) Diabetes GERD (gastroesophageal reflux disease) History of TIA (transient ischemic attack) Hypertension Mitral valve disorder Obesity Parkinson disease Permanent atrial fibrillation Right arm numbness Slurred speech Surgical History H/O breast biopsy History of eye surgery Knee joint replacement status S/P appendectomy S/P cholecystectomy Family History Mother Colorectal cancer Congestive heart failure Diabetes Hypertension Brother Colorectal cancer Congestive heart failure Sister Cancer Unknown Pancreatic cancer Social History Smoking Status: Never smoker Second Hand Exposure: No; Do You Dip or Chew Tobacco: No; Tobacco Cessation Education Requested by Patient: No Hx Alcohol Use: Yes Alcohol type: wine Hx Substance Use: No Preferred Language: [place] Communication Ability: Effective Technical Communicator Required: No Beliefs That Will Affect Care: None marital status: Current Living Situation: Alone How many Children do You have: 2 Other Information That Helps Us Care for You: No Feels Safe at Home: Yes Safety Concerns: Feels Safe At This Time Assistive Devices: Glasses and Walker Review of Systems See HPI for pertinent positives & negatives. and A total of 10 systems reviewed and were otherwise negative Physical Exam Vital Signs Vital Signs - 24 hr 06/08/20 08:26 06/08/20 08:27 06/08/20 09:07 Temperature 36.7 C Temperature Source Oral Pulse Rate 79 67 Pulse Rate from SpO2 Sensor Respiratory Rate 20 18 Respiratory Effort / Characteristics Non-Labored Spontaneous Respiratory Depth Normal Respiratory Pattern Regular Blood Pressure 159/71 H 159/71 H Blood Pressure Mean 92 100 Pulse Oximetry 98 97 96 Oxygen Delivery Method Room Air Room Air Sepsis Recent Fever Within 48 Hours No Sepsis New/Unexplained Change in Mental Status No Sepsis Action Taken by Nursing No Action Required 06/08/20 09:50 06/08/20 10:00 06/08/20 10:30 Temperature Temperature Source Pulse Rate 80 88 71 Pulse Rate from SpO2 Sensor 80 86 72 Respiratory Rate 17 16 16 Respiratory Effort / Characteristics Respiratory Depth Respiratory Pattern Blood Pressure 157/84 H 119/80 138/60 Blood Pressure Mean 104 99 77 Pulse Oximetry 98 98 97 Oxygen Delivery Method Sepsis Recent Fever Within 48 Hours Sepsis New/Unexplained Change in Mental Status Sepsis Action Taken by Nursing 06/08/20 11:00 06/08/20 11:30 06/08/20 12:00 Temperature Temperature Source Pulse Rate 74 80 67 Pulse Rate from SpO2 Sensor 75 68 Respiratory Rate 17 16 13 Respiratory Effort / Characteristics Respiratory Depth Respiratory Pattern Blood Pressure 124/64 140/74 126/57 L Blood Pressure Mean 95 92 80 Pulse Oximetry 97 100 95 Oxygen Delivery Method Sepsis Recent Fever Within 48 Hours Sepsis New/Unexplained Change in Mental Status Sepsis Action Taken by Nursing 06/08/20 12:30 Temperature Temperature Source Pulse Rate 74 Pulse Rate from SpO2 Sensor 98 H Respiratory Rate 14 Respiratory Effort / Characteristics Respiratory Depth Respiratory Pattern Blood Pressure 129/66 Blood Pressure Mean 98 Pulse Oximetry 95 Oxygen Delivery Method Sepsis Recent Fever Within 48 Hours Sepsis New/Unexplained Change in Mental Status Sepsis Action Taken by Nursing Vital signs reviewed. General: Chronically ill-appearing 74-year-old female, in no significant distress. HEENT: No scleral icterus, PERRLA, neck supple. Atraumatic. Cardiovascular: Irregular but rate controlled. No extra sounds. Pulmonary: Clear to auscultation bilaterally, normal work of breathing. Abdomen: Soft, obese, nontender, nondistended, positive bowel sounds. Musculoskeletal: Atraumatic, no peripheral edema. Nontender to palpation over the cervical, thoracic and lumbar spine. Neurologic: Patient awake alert and oriented x 3, full strength in all 4 extremities. Cranial nerves 2 through 12 grossly intact. Skin: Warm, dry, ecchymosis noted to the bilateral knees. Ecchymosis without tenderness across the right upper middle thoracic back. Course Administered Medications Aspirin (Aspirin 81 Mg Ectab) 81 mg PO [facility] Stop: 07/08/20 20:59 Last Admin: 06/08/20 20:24 Dose: 81 mg Documented by: [id number] Atorvastatin Calcium (Atorvastatin 10 Mg Tab) [facility] Stop: 07/09/20 08:59 Last Admin: 06/09/20 07:49 Dose: 10 mg Documented by: [id number] Carbidopa/Levodopa (Carbidopa/Levodopa 25/100mg Tab) 2 tab PO QID@0700,1100,1500,1900 [facility] Stop: 07/08/20 13:17 Last Admin: 06/09/20 10:59 Dose: 2 tab Documented by: [id number] Admin: 06/09/20 06:25 Dose: 2 tab Documented by: [id number] Admin: 06/08/20 19:40 Dose: 2 tab Documented by: [id number] Admin: 06/08/20 15:24 Dose: 2 tab Documented by: [id number] Gabapentin (Gabapentin 300 Mg Cap) 300 mg PO HS [facility] Stop: 07/08/20 20:59 Last Admin: 06/08/20 20:24 Dose: 300 mg Documented by: [id number] Insulin Aspart (Insulin Aspart 100 Units/Ml 3 Ml Pen) 0 units SC ACHS [facility] Stop: 07/08/20 16:29 Last Admin: 06/09/20 12:04 Dose: 2 units Documented by: [id number] Cosigned by: [id number] Admin: 06/09/20 08:13 Dose: 1 units Documented by: [id number] Cosigned by: [id number] Admin: 06/08/20 21:55 Dose: Not Given Documented by: [id number] Cosigned by: [id number] Admin: 06/08/20 18:06 Dose: 10 units Documented by: [id number] Cosigned by: [id number] Miscellaneous (Diclofenac Sodium 3 % Gel ~ Order Awaiting Action) 1 ea N/A QS [facility] Stop: 07/08/20 15:59 Last Admin: 06/09/20 07:40 Dose: Not Given Documented by: [id number] Admin: 06/08/20 22:55 Dose: Not Given Documented by: [id number] Admin: 06/08/20 15:24 Dose: Not Given Documented by: [id number] Multivitamins/Minerals (Calcium 600mg + Vit D 400 Iu Tab) 1 tab PO QAM [facility] Stop: 07/09/20 08:59 Last Admin: 06/09/20 07:49 Dose: 1 tab Documented by: [id number] Rivaroxaban (Rivaroxaban 20 Mg Tab) 20 mg PO QPM [facility] Stop: 07/08/20 20:59 Last Admin: 06/08/20 20:24 Dose: 20 mg Documented by: [id number] Discontinued Medications Carbidopa/Levodopa (Carbidopa/Levodopa 25/100mg Tab) 2 tab PO ONE STA Stop: 06/08/20 12:22 Last Admin: 06/08/20 13:18 Dose: 2 tab Documented by: [id number] Carbidopa/Levodopa (Carbidopa/Levodopa 25/100mg Tab) 2 tab PO QID [facility] Stop: 07/08/20 13:17 Last Admin: 06/08/20 13:22 Dose: Not Given Documented by: [id number] Carbidopa/Levodopa (Carbidopa/Levodopa 25/100mg Tab) 2 tab PO ONE ONE Stop: 06/08/20 23:01 Last Admin: 06/08/20 22:46 Dose: 2 tab Documented by: [id number] Sodium Chloride (Nss 1000ml) 1,000 mls @ 125 mls/hr IV .Q8H [facility] Stop: 06/08/20 16:44 Last Infusion: 06/08/20 18:00 Dose: 0 mls/hr Documented by: [id number] Admin: 06/08/20 09:54 Dose: 125 mls/hr Documented by: [id number] Influenza Virus Vaccine (Influenza Vaccine High Dose 65+ 0.7 Ml Syr) 0.7 ml IM .ONCE ONE Stop: 06/08/20 18:01 Last Admin: 06/08/20 18:07 Dose: Not Given Documented by: [id number] Insulin Glargine (Insulin Glargine Solostar 100 Units/Ml 3 Ml Pen) 36 units SC ONE ONE Stop: 06/08/20 17:46 Last Admin: 06/08/20 18:06 Dose: 36 units Documented by: [id number] Cosigned by: [id number] Miscellaneous (*Stop Insulin Pump*Pending Order) 1 ea N/A 1945 ONE Stop: 06/08/20 19:46 Last Admin: 06/08/20 20:03 Dose: 1 ea Documented by: [id number] Medical Decision Making Differential Diagnosis Infection, dehydration, metabolic abnormality, hypo/hyperglycemia, electrolyte disturbance, anemia, hypoxia, cardiac sources, intracerebral event, toxicologic, neurologic, as well as other pathologies. Medical Records Attestation: I reviewed the patient's medical records. Home Medications Current Medication List: was personally reviewed by me Laboratory Data Attestation: I reviewed the patient's lab results. Result diagrams: 06/09/20 05:36 06/09/20 05:36 Lab Results 06/08/20 06/08/20 06/08/20 Range/Units 09:28 09:28 09:28 WBC 9.47 (4.8-10.8) K/uL RBC 4.83 (4.2-5.4) M/uL Hgb 14.6 (12.0-16.0) g/dL Hct 42.8 (37-47) % MCV 88.6 (80-100) fL MCH 30.2 (25-34) pg MCHC 34.1 (32-36) g/dL RDW Std Deviation 46.8 H (36.4-46.3) fL RDW Coeff of Vicky 14.3 (11.5-14.5) % Plt Count 177 (130-400) K/uL MPV 10.3 (7.4-10.4) fL Immature Gran % (Auto) 0.2 % Neut % (Auto) 85.8 % Lymph % (Auto) 6.5 % [place] % (Auto) 7.2 % Eos % (Auto) 0.2 % Baso % (Auto) 0.1 % Neut # (Auto) 8.12 H (1.4-6.5) K/uL Lymph # (Auto) 0.62 L (1.2-3.4) K/uL [place] # (Auto) 0.68 H (0.11-0.59) K/uL Eos # (Auto) 0.02 (0-0.5) K/uL Baso # (Auto) 0.01 (0-0.2) K/uL Immature Gran # (Auto) 0.02 (0.00-0.02) K/uL PT 14.0 H (9.0-12.0) Seconds INR 1.3 H (0.9-1.1) Sodium 142 (136-145) mmol/L Potassium 3.5 (3.5-5.1) mmol/L Chloride 108 H (98-107) mmol/L Carbon Dioxide 26 (21-32) mmol/L Anion Gap 8.0 (3-11) BUN 24 H (7-18) mg/dl Creatinine 0.75 (0.6-1.2) mg/dl Est Cr Clr Drug Dosing 73.7 ml/min Est GFR ( Amer) 91.7 Est GFR (Non-Af Amer) 79.1 BUN/Creatinine Ratio 32.3 H (10-20) Glucose 72 (70-99) mg/dl Calcium 9.1 (8.5-10.1) mg/dl Magnesium 2.0 (1.8-2.4) mg/dl Total Bilirubin 2.4 H (0.2-1) mg/dl AST 40 H (15-37) U/L ALT 19 (12-78) U/L Alkaline Phosphatase 92 (45-117) U/L Total Creatine Kinase 1091 H (26-192) U/L Troponin I < 0.015 (0-0.045) ng/ml Total Protein 6.8 (6.4-8.2) gm/dl Albumin 3.6 (3.4-5.0) gm/dl Globulin 3.2 (2.5-4.0) gm/dl Albumin/Globulin Ratio 1.1 (0.9-2) TSH 1.410 (0.300-4.500) uIu/ml Urine Color Urine Appearance (Clear) Urine pH (4.5-7.5) Ur Specific [place] (1.000-1.030) Urine Protein (Negative) Urine Glucose (UA) (Negative) Urine Ketones (Negative) Urine Blood (Negative) Urine Nitrite (Negative) Urine Bilirubin (Negative) Urine Urobilinogen (Negative) Ur Leukocyte Esterase (Negative) Urine WBC (Auto) (0-5) /hpf Urine RBC (Auto) (0-4) /hpf U Hyaline Cast (Auto) (0-5) /lpf U Epithel Cells (Auto) (0-5) /lpf Urine Bacteria (Auto) (Negative) SARS-CoV-2 Ag (Rapid) (Negative) 06/08/20 06/08/20 Range/Units 09:30 12:21 WBC (4.8-10.8) K/uL RBC (4.2-5.4) M/uL Hgb (12.0-16.0) g/dL Hct (37-47) % MCV (80-100) fL MCH (25-34) pg MCHC (32-36) g/dL RDW Std Deviation (36.4-46.3) fL RDW Coeff of Vicky (11.5-14.5) % Plt Count (130-400) K/uL MPV (7.4-10.4) fL Immature Gran % (Auto) % Neut % (Auto) % Lymph % (Auto) % [place] % (Auto) % Eos % (Auto) % Baso % (Auto) % Neut # (Auto) (1.4-6.5) K/uL Lymph # (Auto) (1.2-3.4) K/uL [place] # (Auto) (0.11-0.59) K/uL Eos # (Auto) (0-0.5) K/uL Baso # (Auto) (0-0.2) K/uL Immature Gran # (Auto) (0.00-0.02) K/uL PT (9.0-12.0) Seconds INR (0.9-1.1) Sodium (136-145) mmol/L Potassium (3.5-5.1) mmol/L Chloride (98-107) mmol/L Carbon Dioxide (21-32) mmol/L Anion Gap (3-11) BUN (7-18) mg/dl Creatinine (0.6-1.2) mg/dl Est Cr Clr Drug Dosing ml/min Est GFR ( Amer) Est GFR (Non-Af Amer) BUN/Creatinine Ratio (10-20) Glucose (70-99) mg/dl Calcium (8.5-10.1) mg/dl Magnesium (1.8-2.4) mg/dl Total Bilirubin (0.2-1) mg/dl AST (15-37) U/L ALT (12-78) U/L Alkaline Phosphatase (45-117) U/L Total Creatine Kinase (26-192) U/L Troponin I (0-0.045) ng/ml Total Protein (6.4-8.2) gm/dl Albumin (3.4-5.0) gm/dl Globulin (2.5-4.0) gm/dl Albumin/Globulin Ratio (0.9-2) TSH (0.300-4.500) uIu/ml Urine Color Dark Yellow Urine Appearance Clear (Clear) Urine pH 5.0 (4.5-7.5) Ur Specific [place] 1.032 H (1.000-1.030) Urine Protein Trace H (Negative) Urine Glucose (UA) Negative (Negative) Urine Ketones 1+ H (Negative) Urine Blood Negative (Negative) Urine Nitrite Negative (Negative) Urine Bilirubin 1+ H (Negative) Urine Urobilinogen Negative (Negative) Ur Leukocyte Esterase Trace H (Negative) Urine WBC (Auto) 0 (0-5) /hpf Urine RBC (Auto) 5-10 H (0-4) /hpf U Hyaline Cast (Auto) 1-5 (0-5) /lpf U Epithel Cells (Auto) 0-5 (0-5) /lpf Urine Bacteria (Auto) Negative (Negative) SARS-CoV-2 Ag (Rapid) Negative (Negative) Imaging Data Attestation: I personally reviewed and interpreted this imaging study as follows: Radiologist's Impression: SINGLE VIEW CHEST CLINICAL HISTORY: Generalized weakness. FINDINGS: An AP, portable, upright chest radiograph is compared to study dated 03/08/2020. The examination is degraded by portable technique and patient rotation. The heart is enlarged noting atherosclerotic calcification of the thoracic aorta. Pulmonary vasculature is noncongested. Chronic interstitial thickening is similar to previous. The lungs and pleural spaces are clear. No pneumothorax is seen. The skeletal structures are osteopenic. There are healed right-sided rib fractures. IMPRESSION: Cardiomegaly with no acute cardiopulmonary abnormality. ACT 112: Negative or not required by law. Electronically signed by: Keith Grace M.D. 06/08/2020 10:13 AM Dictated: 06/08/20 1012Transcribed: 06/08/[address] SCAN OF THE BRAIN WITHOUT IV CONTRAST CLINICAL HISTORY: Trauma. COMPARISON STUDY: CT of the brain dated 02/16/2020. TECHNIQUE: Unenhanced axial CT scan of the brain is performed from the vertex to the skull base. A dose lowering technique was utilized adhering to the principles of ALARA. CT DOSE: 537.48 mGy.cm FINDINGS: Brain parenchyma: There are age-related involutional changes noting mild subcortical and periventricular microangiopathic change. There is no hemorrhage, mass effect, or evidence of acute territorial ischemia by CT criteria. Kendrick- white matter differentiation is preserved. No extra-axial fluid collection is seen. Ventricles, sulci, cisterns: Prominent secondary to involutional change. Intracranial vasculature: There is atherosclerotic calcification of the cavernous carotid and vertebral arteries. Calvarium: The skeletal structures are osteopenic. There is no depressed calvarial fracture. Sinuses and mastoids: The visualized paranasal sinuses are clear. The mastoid air cells are well pneumatized. Orbits: The bony orbits are grossly intact. Postoperative change is noted involving the left globe. IMPRESSION: There is no hemorrhage, mass effect, or evidence of acute territorial ischemia by CT criteria. ACT 112: Negative or not required by law. Electronically signed by: Keith Grace M.D. 06/08/2020 9:52 AM Dictated: 06/08/2050Transcribed: 06/08/20949 ECG Data Attestation: I personally reviewed and interpreted this ECG as follows: Indication: + weakness Rate (beats per minute): 75 Rhythm: + atrial fibrillation ECG Intervals/blocks: + Normal QT-c ECG [place]: + Left axis deviation ECG ST segments: + Normal ST segments ECG Findings: + Q waves (Anterior); no PACs and no PVCs Blood Pressure Blood Pressure Findings: Normal blood pressure Blood Pressure Disposition: did not require urgent referral MDM Narrative This patient was evaluated and appeared to be in no significant distress. IV access was obtained and laboratory work was drawn. An order for cardiac monitoring was placed and the patient is noted to be in a rate controlled atrial fibrillation at 80 bpm which is consistent with the patient's history. EKG confirms these findings. Patient was hydrated with normal saline solution. Patient's laboratory work reveals a mildly elevated total CK at 1091. Patient does have ecchymosis to both knees indicating she was crawling around for most of the night. Head CT is negative for intracranial hemorrhage. The patient was unable to stand for EMS and walk. She does live at home by herself and has a history of Parkinson's, is anticoagulated and will be unable to return home safe ly at this time. According to case management her insurance will require prior authorization before considering rehabilitation placement. The hospitalist was consulted for further management. Patient is aware of plan and agrees. Impression & Plan Rhabdomyolysis, Parkinsons disease, Fall, Generalized weakness, Ambulatory dysfunction Discharge Plan Visit Data Chief Complaint: Fall ED Provider: Lidya Barnes Discharge Problem: Rhabdomyolysis, Parkinsons disease, Fall, Generalized weakness, Ambulatory dysfunction Patient Disposition: Admitted As Inpatient Discharge Instructions Interventions: ED Discharge Assessment Last Done: 06/08/20 13:14 Discharge Problem: Rhabdomyolysis Qualifiers: Rhabdomyolysis type: non-traumatic Qualified Code(s): M62.82 - Rhabdomyolysis Fall Qualifiers: Encounter type: initial encounter Qualified Code(s): W19.XXXA - Unspecified fall, initial encounter
[2020-06-08] MEDS ORDERED: INSULIN GLARGINE SOLOSTAR 100 UNITS/ML 3 ML PEN SC ONE (17:45)
[2020-06-08] MEDS ORDERED: INFLUENZA ADMINISTRATION CHARGE ONE (18:00)
[2020-06-08] MEDS ORDERED: INFLUENZA VACCINE HIGH DOSE 65+ 0.7 ML SYR IM ONE (18:00)
[2020-06-08] MEDS: INSULIN ASPART 100 UNITS/ML 3 ML PEN SC SCH ×2 (18:06→21:55)
[2020-06-08] MEDS: GABAPENTIN 300 MG CAP PO SCH (20:24)
[2020-06-08] MEDS: RIVAROXABAN 20 MG TAB PO SCH (20:24)
[2020-06-08] MEDS: ASPIRIN 81 MG ECTAB PO SCH (20:24)
[2020-06-08] MEDS ORDERED: CARBIDOPA/LEVODOPA 25/100MG TAB PO ONE (23:00)
[2020-06-09 06:06] LABS: Basophils # (auto) 0.01 K/uL (0-0.2); Basophils % (auto) 0.2 %; Eosinophils # (auto) 0.16 K/uL (0-0.5); Eosinophils % (auto) 2.7 %; Hematocrit (blood only) 38.8 % (37-47); Hemoglobin 12.9 g/dL (12.0-16.0); Immature Granulocytes # (auto) 0.02 K/uL (0.00-0.02); Immature Granulocytes % (auto) 0.3 %; Lymphocytes % (auto) 29.2 %; Mean Corpuscular Hemoglobin 29.9 pg (25-34); Mean Corpuscular Hgb Conc 33.2 g/dL (32-36); Mean Platelet Volume 10.5 fL (7.4-10.4); Monocytes % (auto) 8.6 %; Neutrophils # (auto) 3.44 K/uL (1.4-6.5); Platelet Count 160 K/uL (130-400); RDW Coefficient of Variation 14.7 % (11.5-14.5); RDW Standard Deviation 48.3 fL (36.4-46.3); Red Blood Count 4.31 M/uL (4.2-5.4); White Blood Count 5.83 K/uL (4.8-10.8)
[2020-06-09] MEDS: CARBIDOPA/LEVODOPA 25/100MG TAB PO SCH ×4 (06:25→20:14)
[2020-06-09 06:33] LABS: Albumin Level 3.1 gm/dl (3.4-5.0); BUN Creatinine Ratio 33.1 (10-20); Calcium 8.2 mg/dl (8.5-10.1); Creatinine Clr Calc Pharmacy 86.3 ml/min; Est GFR (African American) 102.6; Est GFR (Non-African American) 88.5; Potassium 3.5 mmol/L (3.5-5.1)
[2020-06-09 06:51] LABS: Albumin Globulin Ratio 1.1 (0.9-2); Bilirubin,Total 2.2 mg/dl (0.2-1); Globulin 2.9 gm/dl (2.5-4.0)
[2020-06-09] MEDS: CALCIUM 600MG + VIT D 400 IU TAB PO SCH (07:49)
[2020-06-09] MEDS: ATORVASTATIN 10 MG TAB PO SCH (07:49)
[2020-06-09] MEDS: INSULIN ASPART 100 UNITS/ML 3 ML PEN SC SCH ×4 (08:13→20:20)
--- NOTE | 2020-06-09 11:02 | Pharmacy Report ---
Pharmacy Glycemic Short Note 2 - Date of Service June 09, 2020 - Glycemic Short BSG Results (Last 24 hours): 06/08/20 06/08/20 06/09/20 16:41 20:29 05:36 Glucose 71 POC Glucose 136 H 90 06/09/20 07:37 Glucose POC Glucose 76 OUTPATIENT ANTIDIABETIC REGIMEN: * Humalog insulin pump - basal 1.5 units/hr * bolus 10 units before meals, CR 1:7, CF of 25 for BSGs >150 ASSESSMENT: 06/09 * Patient transitioned off insulin pump yesterday, utilized basal dose on pump settings for Lantus * Fasting BSG on lower end of range 71 mg/dL - appears patient not eating much / plan to decrease basal for HS tonight * Loosened CF/CR as BSGs trending down yesterday 06/08 * Patient admitted s/p fall. PMHx significant for type 2 diabetes, parkinsons, afib. Managed on insulin pump at home for diabetes. Most recent A1c of 6.5% in February. Follows ANNIA Young for diabetes management * Spoke with nurse and patient does not know pump settings/not comfortable with patient on pump. Plan to utilize basal bolus insulin and transition off insulin pump * Plan to give basal (based upon outpatient notes) and overlap with pump for a couple hours PLAN FOR INPATIENT GLYCEMIC CONTROL: * Hold outpatient oral diabetes medications * Basal insulin * Lantus 25 units HS * Bolus insulin * NovoLog per scale ACHS or Q6hrs while NPO * Goal Range: Low 110 mg/dL - High 150 mg/dL * Correction Factor: 30 mg/dL/unit * Nutritional / Prandial insulin per carb ratio of 1 unit per10 grams CHO consumed PLAN FOR DISCHARGE: * tbd
--- NOTE | 2020-06-09 15:06 | Hospitalist Progress Note ---
Date of Service June 09, 2020 Assessment & Plan (1) Falls: no overt acute causes - suspect all chronic related to parkinsons/weakness - her "perfect storm" of events seems to fit HPI well. discussed home but with a call button so that should she end up down and not able to get up she has an easier time summoning help. (2) Rhabdomyolysis: Very mild. no KALYN and none anticipated (3) Orthostatic dizziness: Prior history of this. likely parkinson's related. (4) Ataxic gait: Suspected secondary to Parkinson's and diabetic peripheral neuropathy. PT/OT eval and treat (5) Parkinson disease: Continue Sinemet at current dosing - patient reports her Parkinson's symptoms such as rigidity, tremors and bradykinesia are stable on current Sinemet dosing. (6) Diabetic peripheral neuropathy: Reduce gabapentin as above. No significant pain - mainly numbness. B12 ok (7) Type 2 diabetes mellitus with retinopathy, with long-term current use of insulin: HbA1c with a.m. labs, previously 6.5 in February. sugars reasonable (8) A-fib: rate controlled, anticoagulated w xarelto (9) DVT prophylaxis: Xarelto as above Admission and Anticipated Discharge Date Admission Date: June 08, 2020 Subjective feeling better - notes that she really thinks it was just a confluence of circumstances - late in the day when she is normally tired, tremor worse recently - thinks probably stress related - and then she got her feet twisted up as she was trying to turn in a narrow part of her house - once she was down where she was made it tough to get up - and then by the time she crawled to couch/bedroom she was exhausted. generally thinks it was all of that going together that led to current admission -- and feels good otherwise. feels up to going home - pleased with how she did w therapy. Review of Systems Review of Systems: All systems reviewed & are unremarkable except as noted in HPI & below Physical Exam Physical Exam: gen aaox3 pleasant nad heent nc at mmm breathing unlabored no accessory muscles good effort large amplitude tremor no focal neuro deficits Results & Data Results & Data ([facility]) Vital Signs (Past 12 Hours) Vital Signs Temp Pulse Pulse Resp BP BP Pulse Ox 06/09/20 12:55 98.2 F 70 20 106/71 96 06/09/20 08:41 97.7 F 62 20 124/69 95 06/09/20 07:30 62 06/09/20 03:58 97.9 F 88 18 129/59 L 94 PG Care Time/CCT Total # of Minutes Spent Total Time Spent with Patient: Total time spent is greater than 50% in coordination of care (as documented) at patient's floor/unit and/or counseling patient: Coding Level of Care Code 46320 Subseq Hosp Care Lvl 2 Diagnoses Falls W19.XXXA Rhabdomyolysis M62.82 Orthostatic dizziness R42 Ataxic gait R26.0 Parkinson disease G20 Diabetic peripheral neuropathy E11.42 Type 2 diabetes mellitus with retinopathy, with long-term current use of insulin E11.319; Z79.4 A-fib I48.91 DVT prophylaxis Z29.9
[2020-06-09] MEDS: ACETAMINOPHEN 325 MG TAB PO PRN ×2 (16:45→21:04)
[2020-06-09] MEDS: ASPIRIN 81 MG ECTAB PO SCH (20:14)
[2020-06-09] MEDS: GABAPENTIN 300 MG CAP PO SCH (20:14)
[2020-06-09] MEDS: RIVAROXABAN 20 MG TAB PO SCH (20:14)
[2020-06-09] MEDS ORDERED: INSULIN GLARGINE SOLOSTAR 100 UNITS/ML 3 ML PEN SC SCH ×2 (21:00)
[2020-06-10] MEDS: CARBIDOPA/LEVODOPA 25/100MG TAB PO SCH ×3 (06:04→12:29)
[2020-06-10] MEDS ORDERED: LORazepam 0.5 MG TAB PO PRN (06:17)
[2020-06-10 07:36] LABS: Estimated Average Glucose 169 mg/dl; Hemoglobin A1C 7.5 % (4.5-5.6)
[2020-06-10] MEDS: CALCIUM 600MG + VIT D 400 IU TAB PO SCH (07:43)
[2020-06-10] MEDS: ATORVASTATIN 10 MG TAB PO SCH (07:43)
[2020-06-10] MEDS: INSULIN ASPART 100 UNITS/ML 3 ML PEN SC SCH ×2 (07:57→12:27)
--- NOTE | 2020-06-10 09:24 | Pharmacy Report ---
Pharmacy Glycemic Short Note 2 - Date of Service June 10, 2020 - Glycemic Short BSG Results (Last 24 hours): 06/09/20 06/09/20 06/09/20 12:00 17:03 20:20 POC Glucose 124 H 153 H 173 H 06/10/20 07:37 POC Glucose 145 H OUTPATIENT ANTIDIABETIC REGIMEN: * Humalog insulin pump - basal 1.5 units/hr * bolus 10 units before meals, CR 1:7, CF of 25 for BSGs >150 ASSESSMENT: 06/10 * AM fasting BSG good, but with notable trend up after dose reduction yesterday. Will add a scale for this PM with possible increased dose * Post-prandial BSG's trended up yesterday, despite only minimal po intake. W ill tighten correction factor CHO ratio to closer to home scale 06/09 * Patient transitioned off insulin pump yesterday, utilized basal dose on pump settings for Lantus * Fasting BSG on lower end of range 71 mg/dL - appears patient not eating much / plan to decrease basal for HS tonight * Loosened CF/CR as BSGs trending down yesterday 06/08 * Patient admitted s/p fall. PMHx significant for type 2 diabetes, parkinsons, afib. Managed on insulin pump at home for diabetes. Most recent A1c of 6.5% in February. Follows ANNIA Young for diabetes management * Spoke with nurse and patient does not know pump settings/not comfortable with patient on pump. Plan to utilize basal bolus insulin and transition off insulin pump * Plan to give basal (based upon outpatient notes) and overlap with pump for a couple hours PLAN FOR INPATIENT GLYCEMIC CONTROL: * Hold outpatient oral diabetes medications * Basal insulin * Lantus 20-30 units HS, depending on BSG * Bolus insulin * NovoLog per scale ACHS or Q6hrs while NPO * Goal Range: Low 110 mg/dL - High 140 mg/dL * Correction Factor: 25 mg/dL/unit * Nutritional / Prandial insulin per carb ratio of 1 unit per 8 grams CHO consumed PLAN FOR DISCHARGE: * tbd
--- NOTE | 2020-06-10 13:09 | Discharge Summary ---
Date of Service June 10, 2020 Admission HPI Per Admitting Provider Lainey Lainez is a 74 year old female who presents to the ER via EMS due to a fall at home. She lives by herself. She has permanent ambulatory dysfunction as a consequence of diabetic peripheral neuropathy and Parkinson's disease. She does note increased dizziness (lightheadedness) prior to the fall but also loss of balance while turning in her laundry room. She denies any chest pain, room spinning sensation or shortness of breath prior to falling. This is similar to the dizziness she has felt on prior occasions. She reports recently decreasing her dose of gabapentin which is helped improve this dizziness and is currently taking 300 mg twice daily. She fell at 11 PM last night and spent night on the floor. Approximately 11 AM today she managed to alert her son via her Echo device who subsequently called for an ambulance. She is currently taking Xarelto for anticoagulation in the setting of atrial fibrillation. Other than some mild elbow pain she denies any other injuries from the fall. She reports rigidity, tremors and bradykinesia is at baseline and will follow up with Dr. Wen for her Parkinson's in June per routine. In the ER CT head and chest x-ray were unremarkable. CPK was mildly raised at 1091 U/L. Bilirubin 2.4 (she denies any abdominal pain). She was referred to medicine for admission and ongoing management of weakness, fall, rhabdomyolysis and ambulatory dysfunction. Principal Diagnosis multifactorial fall, stable for home Discharge Exam gen aaox3 [place] heent nc at mmm breathing unlabored no accessory muscles good effort tremor less pronounced than yesterday no focal neuro deficits Discharge Data Allergies Allergy/AdvReac Type Severity Reaction Status Date / Time benztropine Allergy Unknown UNKNOWN Verified 03/08/20 23:04 citalopram Allergy Unknown UNKNOWN Verified 03/08/20 23:04 simvastatin Allergy Unknown UNK Verified 03/08/20 23:04 sulindac Allergy Unknown UNKNOWN Verified 03/08/20 23:04 doxycycline AdvReac Mild NAUSEA Verified 03/08/20 23:04 minocycline AdvReac Mild NAUSEA Verified 03/08/20 23:04 Consultations 06/08/20 12:02 ED Decision to Admit Stat 06/09/20 15:04 Consult Case Management - Discharge Planning Routine Ordered Studies 06/08/20 08:56 CT head/brain wo con Stat Hospital Course (1) Falls: no overt acute causes - suspect all chronic related to parkinsons/weakness - her "perfect storm" of events seems to fit HPI well. discussed home but with a call button so that should she end up down and not able to get up she has an easier time summoning help. also she has several fede devices - suggested repositioning them so that one is always in voice range (but discussed that an emergency call button would still be preferred) (2) Rhabdomyolysis: Very mild. no KALYN (3) Orthostatic dizziness: Prior history of this. likely parkinson's related. bumex stopped (4) Ataxic gait: Suspected secondary to Parkinson's and diabetic peripheral neuropathy. did well w PT/OT here. home PT ordered (5) Parkinson disease: Continue Sinemet at current dosing - patient reports her Parkinson's symptoms such as rigidity, tremors and bradykinesia are stable on current Sinemet dosing. (6) Diabetic peripheral neuropathy: home meds B12 ok (7) Type 2 diabetes mellitus with retinopathy, with long-term current use of insulin: A1c 7.5 sugars reasonable (8) A-fib: rate controlled, anticoagulated w xarelto (9) DVT prophylaxis: Xarelto as above stable for home, home PT. outpt f/u PCP and neurology Total Time Total Time Spent Total Time Spent (In Minutes): <30 Discharge Plan Discharge Items Patient Disposition: Home - Home Health Services Reason For Visit: FALL,RHABDOMYOLYSIS,AMBULATORY DYSFUNCTION,DIZZINE Discharge Diagnosis: fall and weakness Activity: Resume your previous activity Non-emergency contact: Primary Care Provider and Neurologist Call non-emergency contact if: you have any medication questions and your symptoms worsen Follow-up/Referrals: Damaris Vega MD [Primary Care Provider] - 06/12/20 2:30 pm Diet: Regular Addtl Attending Provider Instructions: as we discussed - definitely get the call button so that if you have an emergency you can summon EMS right away; at the same time, for less urgent situations but where you still need help, just position your fede devices around the house so that one of them is always within voice range. Shamar Salamanca no longer as life alert installation. We have lost our wind turbine service technician and not taking any new customers at this time. There at three top rated systems in this area: [employer], [employer] or [employer]. [employer]- Mobile Help- [employer]= Pending Studies at Discharge: No Stand-Alone Forms: My [facility] [employer], Smoking Cessation Medications and DC Order Prescriptions: Continued insulin lispro [Humalog U-100 Insulin] 100 unit/mL solution See Rx Instructions SQ UD Qty: 9 RF: 3 gabapentin 300 mg Capsule 300 mg PO BID RF: 0 diclofenac sodium 3 % Gel 1 applic TOPICAL BID RF: 0 aspirin [Aspirin Low Dose] 81 mg tablet,delayed release (DR/EC) 81 mg PO HS RF: 0 calcium carbonate-vitamin D3 [Calcium 500 + D] 500 mg(1,250mg) -200 unit tablet 1 tab PO QAM RF: 0 atorvastatin 10 mg tablet 10 mg PO QAM RF: 0 lorazepam 0.5 mg tablet 0.5 mg PO BID PRN (Reason: Anxiety) RF: 0 Xarelto 20 mg tablet 20 mg PO QPM RF: 0 carbidopa-levodopa 25-100 mg tablet 2 tab PO QID RF: 0 Discontinued bumetanide 1 mg tablet See Rx Instructions .ROUTE .COMPLEX Qty: 30 RF: 0 Discharge Orders: Discharge Order (Routine); Ordered 06/10/20 Ordered By: Renzo Johnson/Other Patient Handouts: Managing Type 2 Diabetes Admission Data Admit Date/Time: 06/08/20 12:33 Attending Provider: Renzo Lofton Admit Provider: Kristopher Cortes Primary Care Provider: Damaris Vega Other Providers: Kristopher Cortes ; [facility] Other Interventions: Discharge Summary Assessment (RN) Last Done: 06/10/20 12:18 Coding Level of Care Code D/C Day Management <30 mins Diagnoses Falls W19.XXXA Rhabdomyolysis M62.82 Orthostatic dizziness R42 Ataxic gait R26.0 Parkinson disease G20 Diabetic peripheral neuropathy E11.42 Type 2 diabetes mellitus with retinopathy, with long-term current use of insulin E11.319; Z79.4 A-fib I48.91 DVT prophylaxis Z29.9
== END 2020-06-10 14:09 | disposition home health service (06) | DRG 57 ==
LOC: ED 08:21 → SUATTDRO 12:33 → EDINP 12:33 → 2N 13:14

== ENCOUNTER 2022-05-22 19:27 | Inpatient (IN) ==
[2022-05-22] MEDS ORDERED: SODIUM CHLORIDE 0.9% 1000ML 1,000 ML IV ONE (19:48)
--- NOTE | 2022-05-22 19:54 | Emergency Department Note ---
Impression & Plan Falls, Rhabdomyolysis, Acute dehydration, Acute hyperglycemia, Metabolic acidosis ED Provider Note NAME: BASSEM VIVEROS AGE: 76 SEX: F : 1945 ARRIVES VIA: Ambulance INFORMANT: Patient, EMS ED PROVIDER(S): Aleksandr Velasquez DO CHIEF COMPLAINT: Altered mental status HPI: The patient is a 76-year-old female who presented to the emergency department for an evaluation of altered mental status. The patient was found on the floor in her home by her family member. The last time anyone had spoken to her was over 24 hours ago. The patient self did not have any complaints. She states that she fell from her bed. She states that she was unable to stand. She denies having any hip pain. She denies having any back pain. She denies having any nausea or vomiting. She does complain of left elbow pain. She has a small skin tear over left elbow. She was able to stand by herself. There was heat in her home. The patient has a history of Parkinson's which keeps her from being able to ambulate appropriately. She also has a history of atrial fibrillation. ROS: See above HPI for pertinent positives & negatives. A total of 10 systems reviewed and were otherwise negative. PAST MEDICAL HISTORY: See Below PAST SURGICAL HISTORY: See Below FAMILY HISTORY: See Below SOCIAL HISTORY: See Below HOME MEDICATIONS: See Below ALLERGIES: See Below VITALS: See Below PHYSICAL EXAMINATION: GENERAL: The patient is awake. She appears somewhat flat and not anxious. EYES: The conjunctivae are clear. The pupils are round and reactive. EARS, NOSE, MOUTH AND THROAT: The nose is without any evidence of any deformity. Mucous membranes are dry. There is erythema on the forehead. NECK: The neck is nontender and supple. RESPIRATORY: Normal respiratory effort is noted there is no evidence of wheezing rhonchi or rales CARDIOVASCULAR: Regular rate and rhythm noted there no murmurs rubs or gallops normal S1 normal S2. GASTROINTESTINAL: The abdomen is soft. Abdomen is nontender. BACK: No midline tenderness was appreciated. MUSCULOSKELETAL/EXTREMITIES: There was significant muscle rigidity globally consistent with the patient's history of Parkinson's. There is no deformity. There was no pain with range of motion testing of either hip or shoulder. SKIN: The skin is warm and dry. There is no significant pedal edema. There is significant skin breakdown under each breast and in each right groin. There is erythema and some bleeding noted as well. NEUROLOGIC: Patient is awake and oriented to person place and situation. Strength laterally. MEDICAL DECISION MAKING: The patient is a 76-year-old female who presented to the emergency department fo r an evaluation after being found on the floor. The patient was awake and alert. She did appear to have some pain over her left elbow but otherwise did not have any other significant injury. The patient was treated with IV fluids and IV antibiotics in the emergency department. The patient was reevaluated multiple times. Given the patient's living situation as well as the findings in the emergency department I will discuss his case with the on-call [facility]. I feel the patient would likely require further inpatient management. Triage Nursing notes reviewed. Prior medical records reviewed Vital Signs: reviewed and remarkable for elevated blood pressure and tachycardia. Differential diagnosis: Infection, hypoglycemia, electrolyte abnormalities, overdose, toxicologic, cardiac sources, intracerebral event, neurologic, trauma, as well as other pathologies. ER treatment provided: See below Diagnostics interpreted by me: ECG: EKG was obtained in the emergency department. My interpretation is atrial fibrillation at 104 bpm. Poor R wave progression was noted. Nonspecific ST segment abnormalities were noted. This was compared to a tracing from June 08, 2020. No specific changes were noted. Cardiac Monitoring: An order was placed for continuous cardiac monitoring. The monitor shows a rate of 97 bpm with sinus rhythm. Laboratory studies: As stated above and show below. Imaging studies: See below Consultation(s): I discussed this case with Dr. Meza who is on-call for the [facility] group. She will evaluate the patient in the emergency department. Past Med/Surg History Medical History Acoustic neuroma FOLLOWS DR MITCHELL - UPCOMING RADIATION TREATMENT AFTER CATARACT SURGERY Anxiety Chronic heart failure Complicated migraine "COMPLICATED MIGRAINES" - OCCUR OFTEN AND RESEMBLE SYMPTOMS OF A STROKE PER PT Diabetes INSULIN PUMP GERD (gastroesophageal reflux disease) HX History of colon polyps History of high cholesterol History of TIA (transient ischemic attack) 2004 ,HX PT FOR, NO REMAINING RESIDUAL EFFECTS Hypertension HX BLOOD PRESSURE MEDICINE, ONCE A FIB DX - MED WAS D/C'D - PT REPORTS BLOOD PRESSURE USUALLY RUNS LOW AROUND 106/58 Mitral valve disorder DENIES Obesity Parkinson disease Permanent atrial fibrillation DX 2 YR AGO, NO HX CARDIOVERSION Surgical History H/O breast biopsy 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 History of left knee replacement S/P appendectomy HX S/P cholecystectomy HX Family History Mother Diabetes Congestive heart failure Colorectal cancer Hypertension Brother Congestive heart failure Colorectal cancer Sister Cancer Unknown Pancreatic cancer Son Family history of colonic polyps Social History Smoking Status: Unknown if ever smoked Second Hand Exposure: No; Hx Alcohol Use: Yes Alcohol type: wine Hx Substance Use: No Preferred Language: Estonian Communication Ability: Effective Visual Impairment: No Limitations Boat Buffer Plastic Required: No Beliefs That Will Affect Care: None marital status: Unknown Current Living Situation: Alone How many Children do You have: 2 Feels Safe at Home: Yes Assistive Devices: Walker Allergies Allergies Allergy/AdvReac Type Severity Reaction Status Date / Time benztropine Allergy Unknown PT NOT SURE Verified 05/22/22 20:22 citalopram Allergy Unknown PT NOT SURE Verified 05/22/22 20:22 doxycycline Allergy Unknown REMOTE HX, Verified 05/22/22 20:22 PT NOT SURE REACTION minocycline Allergy Unknown REMOTE HX, Verified 05/22/22 20:22 PT NOT SURE REACTION simvastatin Allergy Unknown PT NOT SURE Verified 05/22/22 20:22 sulindac Allergy Unknown PT NOT SURE Verified 05/22/22 20:22 empagliflozin AdvReac Intermediate Recurrent Verified 05/22/22 20:22 [From Jay] Urinary Tract Infection Home Meds Home Medications Medication Instructions Recorded Confirmed aspirin 81 mg tablet,delayed 81 mg PO HS 01/19/19 05/22/22 release (Yariel Low Dose Aspirin) lorazepam 0.5 mg tablet 0.5 mg PO BID PRN Anxiety 11/08/19 05/22/22 rivaroxaban 20 mg tablet (Xarelto) 20 mg PO QPM 11/08/19 05/22/22 carbidopa 25 mg-levodopa 100 mg 2 tab PO QID 02/07/20 05/22/22 tablet flash glucose sensor (FreeStyle #1 ea 09/02/20 05/22/22 Ruben 2 Sensor kit) gabapentin 300 mg capsule 300 mg PO BID 10/15/21 05/22/22 amantadine HCl 100 mg capsule 100 mg PO AMHS 01/13/22 05/22/22 blood sugar diagnostic (OneTouch #10 ea 01/13/22 05/22/22 Verio test strips) cetirizine 10 mg tablet (Zyrtec) 10 mg PO DAILY PRN Allergy Symptoms 01/13/22 05/22/22 Previous Rx's Medication Instructions Recorded insulin lispro 100 unit/mL See Rx Instructions .Route 02/21/21 subcutaneous solution (Humalog .COMPLEX #90 mL U-100 Insulin) Results & Data (ED) Vital Signs Vital Signs - 24 hr 05/22/22 20:00 05/22/22 21:16 05/22/22 22:04 Temperature 36.6 C 36.9 C Temperature Source Oral Oral Pulse Rate 105 H Pulse Rate [Apical] 111 H 97 H Respiratory Rate 26 H 22 24 Blood Pressure 138/84 Blood Pressure [Left Arm] 169/72 H 169/69 H Blood Pressure Mean 102 Blood Pressure Mean [Left Arm] 104 102 Blood Pressure Position [Left Arm] Lying Pulse Oximetry 96 93 95 Oxygen Delivery Method Room Air Room Air Sepsis Recent Fever Within 48 Hours No Sepsis New/Unexplained Change in Mental Status Yes Sepsis Action Taken by Nursing Physician Notified Home Medications Current Medication List: was personally reviewed by me Laboratory Data Attestation: I reviewed the patient's lab results. Result diagrams: 05/22/22 20:00 05/22/22 20:00 Lab Results 05/22/22 05/22/22 05/22/22 Range/Units 20:00 20:00 20:00 WBC 15.88 H (4.8-10.8) K/ul RBC 5.08 (3.93-5.22) M/uL Hgb 15.3 (12.0-16.0) g/dl Hct 47.0 H (34.1-44.9) % MCV 92.5 (80.0-100.0) fL MCH 30.1 (25.0-34.0) pg MCHC 32.6 (32.0-36.0) g/dL RDW Std Deviation 47.2 H (36.4-46.3) fL RDW Coeff of Vicky 14.0 (11.5-14.5) % Plt Count 287 (130-400) K/uL MPV 10.3 (9.4-12.3) fL Immature Gran % (Auto) 0.7 % Neut % (Auto) 91.4 % Lymph % (Auto) 2.8 % [place] % (Auto) 5.0 % Eos % (Auto) 0.0 % Baso % (Auto) 0.1 % Neut # (Auto) 14.50 H (1.4-6.5) K/uL Lymph # (Auto) 0.45 L (1.2-3.4) K/uL [place] # (Auto) 0.80 (0.24-0.82) K/uL Eos # (Auto) 0.00 (0-0.50) K/uL Baso # (Auto) 0.02 (0-0.2) K/uL Immature Gran # (Auto) 0.11 H (0.00-0.02) K/uL Echinocytes 1+ PT (9.0-12.0) Seconds INR (0.9-1.1) APTT (21.0-31.0) Seconds PTT Ratio ABG pH (7.35-7.45) ABG pCO2 (35-46) mmHg ABG pO2 (80-95) mmHg ABG HCO3 (19-24) mmol/L ABG O2 Saturation (90-95) % ABG Base Excess (-9-1.8) mEq/L Lee Test (Pos) Oxygen Given Sodium 142 (136-145) mmol/L Potassium 4.4 (3.5-5.1) mmol/L Chloride 106 (98-107) mmol/L Carbon Dioxide 18 L (21-32) mmol/L Anion Gap 18 H (3-11) BUN 39 H (6-23) mg/dl Creatinine 0.80 (0.6-1.2) mg/dl Est Cr Clr Drug Dosing 68.2 ml/min Est GFR ( Amer) 83.6 ml/min Est GFR (Non-Af Amer) 72.1 ml/min BUN/Creatinine Ratio 48.8 H (10-20) Glucose 346 H* (70-99(Fasting)) mg/dl Lactate 1.9 (0.4-2.0) mmol/L Calcium 9.3 (8.5-10.1) mg/dl Magnesium 2.3 (1.7-2.4) mg/dl Total Bilirubin 2.2 H (0.2-1.0) mg/dl Direct Bilirubin 0.4 H (0-0.2) mg/dl AST 46 H (13-39) U/L ALT 21 (7-52) U/L Alkaline Phosphatase 88 (34-104) U/L Total Creatine Kinase 1774 H (26-192) U/L Troponin I High Sens 21.2 H (0-14) pg/ml Total Protein 6.9 (6.0-8.3) gm/dl Albumin 4.1 (3.4-5.0) gm/dl Procalcitonin Urine Color Urine Appearance (Clear) Urine pH (4.5-7.5) Ur Specific [place] (1.000-1.030) Urine Protein (Negative) Urine Glucose (UA) (Negative) Urine Ketones (Negative) Urine Blood (Negative) Urine Nitrite (Negative) Urine Bilirubin (Negative) Urine Urobilinogen (Negative) Ur Leukocyte Esterase (Negative) Urine WBC (Auto) (0-5) /hpf Urine RBC (Auto) (0-4) /hpf U Hyaline Cast (Auto) (0-5) /lpf U Epithel Cells (Auto) (0-5) /lpf Urine Bacteria (Auto) (Negative) SARS-CoV-2 (PCR) (Negative) Influenza Type A (PCR) (Neg) Influenza Type B (PCR) (Neg) RSV (RT-PCR) (Neg) 05/22/22 05/22/22 05/22/22 Range/Units 20:00 20:00 20:00 WBC (4.8-10.8) K/ul RBC (3.93-5.22) M/uL Hgb (12.0-16.0) g/dl Hct (34.1-44.9) % MCV (80.0-100.0) fL MCH (25.0-34.0) pg MCHC (32.0-36.0) g/dL RDW Std Deviation (36.4-46.3) fL RDW Coeff of Vicky (11.5-14.5) % Plt Count (130-400) K/uL MPV (9.4-12.3) fL Immature Gran % (Auto) % Neut % (Auto) % Lymph % (Auto) % [place] % (Auto) % Eos % (Auto) % Baso % (Auto) % Neut # (Auto) (1.4-6.5) K/uL Lymph # (Auto) (1.2-3.4) K/uL [place] # (Auto) (0.24-0.82) K/uL Eos # (Auto) (0-0.50) K/uL Baso # (Auto) (0-0.2) K/uL Immature Gran # (Auto) (0.00-0.02) K/uL Echinocytes PT 11.4 (9.0-12.0) Seconds INR 1.1 (0.9-1.1) APTT 22.3 (21.0-31.0) Seconds PTT Ratio 0.8 ABG pH (7.35-7.45) ABG pCO2 (35-46) mmHg ABG pO2 (80-95) mmHg ABG HCO3 (19-24) mmol/L ABG O2 Saturation (90-95) % ABG Base Excess (-9-1.8) mEq/L Lee Test (Pos) Oxygen Given Sodium (136-145) mmol/L Potassium (3.5-5.1) mmol/L Chloride (98-107) mmol/L Carbon Dioxide (21-32) mmol/L Anion Gap (3-11) BUN (6-23) mg/dl Creatinine (0.6-1.2) mg/dl Est Cr Clr Drug Dosing ml/min Est GFR ( Amer) ml/min Est GFR (Non-Af Amer) ml/min BUN/Creatinine Ratio (10-20) Glucose (70-99(Fasting)) mg/dl Lactate (0.4-2.0) mmol/L Calcium (8.5-10.1) mg/dl Magnesium (1.7-2.4) mg/dl Total Bilirubin (0.2-1.0) mg/dl Direct Bilirubin (0-0.2) mg/dl AST (13-39) U/L ALT (7-52) U/L Alkaline Phosphatase (34-104) U/L Total Creatine Kinase (26-192) U/L Troponin I High Sens (0-14) pg/ml Total Protein (6.0-8.3) gm/dl Albumin (3.4-5.0) gm/dl Procalcitonin Cancelled Urine Color Urine Appearance (Clear) Urine pH (4.5-7.5) Ur Specific [place] (1.000-1.030) Urine Protein (Negative) Urine Glucose (UA) (Negative) Urine Ketones (Negative) Urine Blood (Negative) Urine Nitrite (Negative) Urine Bilirubin (Negative) Urine Urobilinogen (Negative) Ur Leukocyte Esterase (Negative) Urine WBC (Auto) (0-5) /hpf Urine RBC (Auto) (0-4) /hpf U Hyaline Cast (Auto) (0-5) /lpf U Epithel Cells (Auto) (0-5) /lpf Urine Bacteria (Auto) (Negative) SARS-CoV-2 (PCR) NEGATIVE (Negative) Influenza Type A (PCR) Negative (Neg) Influenza Type B (PCR) Negative (Neg) RSV (RT-PCR) Negative (Neg) 05/22/22 05/22/22 05/22/22 Range/Units 20:04 20:39 20:46 WBC (4.8-10.8) K/ul RBC (3.93-5.22) M/uL Hgb (12.0-16.0) g/dl Hct (34.1-44.9) % MCV (80.0-100.0) fL MCH (25.0-34.0) pg MCHC (32.0-36.0) g/dL RDW Std Deviation (36.4-46.3) fL RDW Coeff of Vicyk (11.5-14.5) % Plt Count (130-400) K/uL MPV (9.4-12.3) fL Immature Gran % (Auto) % Neut % (Auto) % Lymph % (Auto) % [place] % (Auto) % Eos % (Auto) % Baso % (Auto) % Neut # (Auto) (1.4-6.5) K/uL Lymph # (Auto) (1.2-3.4) K/uL [place] # (Auto) (0.24-0.82) K/uL Eos # (Auto) (0-0.50) K/uL Baso # (Auto) (0-0.2) K/uL Immature Gran # (Auto) (0.00-0.02) K/uL Echinocytes PT (9.0-12.0) Seconds INR (0.9-1.1) APTT (21.0-31.0) Seconds PTT Ratio ABG pH 7.32 L (7.35-7.45) ABG pCO2 31 L (35-46) mmHg ABG pO2 71 L (80-95) mmHg ABG HCO3 16 L (19-24) mmol/L ABG O2 Saturation 95.6 H (90-95) % ABG Base Excess -8.9 (-9-1.8) mEq/L Lee Test Pos (Pos) Oxygen Given ROOM AIR Sodium (136-145) mmol/L Potassium (3.5-5.1) mmol/L Chloride (98-107) mmol/L Carbon Dioxide (21-32) mmol/L Anion Gap (3-11) BUN (6-23) mg/dl Creatinine (0.6-1.2) mg/dl Est Cr Clr Drug Dosing ml/min Est GFR ( Amer) ml/min Est GFR (Non-Af Amer) ml/min BUN/Creatinine Ratio (10-20) Glucose (70-99(Fasting)) mg/dl Lactate (0.4-2.0) mmol/L Calcium (8.5-10.1) mg/dl Magnesium (1.7-2.4) mg/dl Total Bilirubin (0.2-1.0) mg/dl Direct Bilirubin (0-0.2) mg/dl AST (13-39) U/L ALT (7-52) U/L Alkaline Phosphatase (34-104) U/L Total Creatine Kinase (26-192) U/L Troponin I High Sens (0-14) pg/ml Total Protein (6.0-8.3) gm/dl Albumin (3.4-5.0) gm/dl Procalcitonin 0.10 Urine Color Yellow Urine Appearance Clear (Clear) Urine pH 5.5 (4.5-7.5) Ur Specific [place] 1.033 H (1.000-1.030) Urine Protein Trace H (Negative) Urine Glucose (UA) 3+ H (Negative) Urine Ketones 4+ H (Negative) Urine Blood 2+ H (Negative) Urine Nitrite Negative (Negative) Urine Bilirubin Negative (Negative) Urine Urobilinogen Negative (Negative) Ur Leukocyte Esterase Negative (Negative) Urine WBC (Auto) 1-5 (0-5) /hpf Urine RBC (Auto) 0-4 (0-4) /hpf U Hyaline Cast (Auto) 1-5 (0-5) /lpf U Epithel Cells (Auto) 10-20 H (0-5) /lpf Urine Bacteria (Auto) Negative (Negative) SARS-CoV-2 (PCR) (Negative) Influenza Type A (PCR) (Neg) Influenza Type B (PCR) (Neg) RSV (RT-PCR) (Neg) Administered Medications Discontinued Medications Sodium Chloride (Nss 1000ml) 1,000 mls @ 999 mls/hr IV .Q1H1M ONE Stop: 05/22/22 20:48 Last Infusion: 05/22/22 21:38 Dose: 0 mls/hr Documented By: Admin: 05/22/22 20:30 Dose: 999 mls/hr Documented By: ANIKA Imaging Data Radiologist's Impression: Chest X-Ray 05/22/22 19:43 SINGLE VIEW CHEST CLINICAL HISTORY: Sepsis. FINDINGS: An AP, portable, upright chest radiograph is compared to study dated 05/21/2021. The heart is enlarged noting atherosclerotic calcification of the thoracic aorta. The pulmonary vasculature is noncongested. Chronic interstitial thickening is similar to previous. The lungs and pleural spaces are clear noting mild bibasilar atelectasis. No pneumothorax is seen. The skeletal structures are osteopenic. The bony thorax is grossly intact. IMPRESSION: Cardiomegaly with no acute cardiopulmonary abnormality identified. ACT 112: Negative or not required by law. Electronically signed by: Keith Grace M.D. 05/22/2022 10:46 PM Abdomen/Pelvis CT 05/22/22 19:46 CT SCAN OF THE ABDOMEN AND PELVIS WITHOUT IV CONTRAST CLINICAL HISTORY: Fall. COMPARISON STUDY: Abdominal CT dated 09/14/2014. TECHNIQUE: CT scan of the abdomen and pelvis is performed from the lung bases to the proximal femora. Images are reviewed in the axial, sagittal, and coronal planes. IV contrast was not administered for this examination. Note that the examination is suboptimal without oral and IV contrast. There is streak artifact from the arms which could not be elevated above the abdomen. A dose lowering technique was utilized adhering to the principles of ALARA. CT DOSE: 2305.03 mGy.cm FINDINGS: Lung bases: The heart is top normal in size and without pericardial effusion. The coronary arteries are densely calcified. There is a small hiatal hernia. The lung bases are clear noting mild bibasilar atelectasis. Liver: The unenhanced liver is normal in size, contour, and attenuation. There is no intrahepatic biliary ductal dilatation. Gallbladder: Surgically absent noting clips in the gallbladder fossa. Spleen: Normal in size and attenuation. Pancreas: The unenhanced pancreas is atrophic and grossly unremarkable. Adrenal glands: Unremarkable. Kidneys: The unenhanced kidneys are normal in size and without hydronephrosis. There is a punctate nonobstructing left renal calculus. No right renal calculi are identified and no ureteral stone is seen. There is no evidence of contour deforming renal mass lesion. Abdominal vasculature: The abdominal aorta is normal in course and caliber n oting moderate to advanced atherosclerotic calcification. Bowel: There is mild colonic fecal retention. Findings suggest malrotation of the bowel. The duodenum fails to cross the midline and the colon is located in the left abdomen. No bowel obstruction is seen. The appendix is not visualized. Peritoneum: There is no intraperitoneal free air or abdominal ascites. There is a fat-containing umbilical hernia. Lymphadenopathy: None. Pelvic viscera: The bladder is decompressed around a Macedo catheter. The uterus and adnexa are normal as imaged. Skeletal structures: The skeletal structures are osteopenic. There is moderate to advanced lumbosacral spondylosis. The lumbosacral spine, bony pelvis, and proximal femora appear intact No lytic or blastic lesions are seen. IMPRESSION: 1. There is no evidence of solid organ injury in the abdomen or pelvis on this unenhanced examination. 2. Left-sided nephrolithiasis. 3. There is no bowel obstruction. 4. Additional findings as above. ACT 112: Negative or not required by law. Electronically signed by: Keith Grace M.D. 05/22/2022 11:[address] 05/22/22 19:46 CT SCAN OF THE CERVICAL SPINE CLINICAL HISTORY: Fall. Neck pain. COMPARISON STUDY: CT of the cervical spine dated 04/16/2022. TECHNIQUE: CT scan of the cervical spine is performed from the skull base to the upper thoracic spine. Images are reviewed in the axial, sagittal, and coronal planes. IV contrast was not administered for this examination. A dose lowering technique was utilized adhering to the principles of ALARA. FINDINGS: Skeletal structures: The skeletal structures are osteopenic. There is no evidence of fracture or subluxation involving the cervical spine. Vertebral body height and alignment are maintained. There is straightening of the cervical lord osis. Anterior osteophytes are seen throughout. The odontoid process and lateral masses are intact. The atlantoaxial articulation is preserved note is productive degenerative change. The spinous processes appear intact. There is moderate multilevel cervical spondylosis. Uncovertebral and facet arthropathy contribute to neural foraminal narrowing at several levels. Intervertebral discs: There is mild/moderate disc space narrowing at C4-C5, C5- C6, and C6-C7. Central canal: Posterior disc osteophyte complexes at C4-C5, C5-C6, and C6-C7 may contribute to acquired compromise of the central canal. Soft tissues: The prevertebral and paraspinous soft tissues are within normal limits. The right lobe of the thyroid gland is enlarged and heterogeneous. There is atherosclerotic calcification of the carotid bulbs. Calvarium: The visualized calvarium at the skull base appears intact. Brain parenchyma: Partially visualized brain parenchyma at the skull base is within normal limits. Sinuses and mastoids: There is trace mucosal thickening within the maxillary antra as well as tiny air-fluid levels. The mastoid air cells are well pneumatized. Lung apices: Clear as visualized. IMPRESSION: 1. There is no evidence of fracture or subluxation involving the cervical spine. 2. Osteopenia and spondylotic change as above. ACT 112: Negative or not required by law. Electronically signed by: Keith Grace M.D. 05/22/2022 11:30 PM Elbow X-Ray 05/22/22 19:46 LEFT ELBOW 3 VIEWS CLINICAL HISTORY: Fall with left elbow injury. FINDINGS: 3 views of the left elbow are obtained. No prior studies are available for comparison at the time of dictation. The examination is degraded by inability to properly position the patient. The skeletal structures are osteopenic. No fracture is seen. The joint spaces of the elbow grossly maintained. The presence of a joint effusion cannot be assessed due to positioning. Anterior soft tissue edema is noted. IMPRESSION: Soft tissue swelling with no radiographic evidence of acute fracture. Electronically signed by: Keith Grace M.D. 05/22/2022 10:[address] 05/22/22 19:46 CT SCAN OF THE BRAIN WITHOUT IV CONTRAST CLINICAL HISTORY: Fall. Head injury. COMPARISON STUDY: CT of the brain dated 04/16/2022. TECHNIQUE: Unenhanced axial CT scan of the brain is performed from the vertex to the skull base. A dose lowering technique was utilized adhering to the principles of ALARA. FINDINGS: Brain parenchyma: There is age-related involutional change noting mild subcortical and periventricular microangiopathic disease. There is no hemorrhage, mass effect, or evidence of acute territorial ischemia by CT criteria. Kendrick-white matter differentiation is preserved. No extra-axial fluid collection is seen. Ventricles, sulci, cisterns: Prominent secondary to involutional change. Intracranial vasculature: There is atherosclerotic calcification of the cavernous carotid and vertebral arteries. Calvarium: The skeletal structures are osteopenic. No depressed calvarial fracture is seen. Sinuses and mastoids: There is trace fluid in the left maxillary sinus. Trace because of thickening is noted in the right maxillary antrum. The remaining Visualized paranasal sinuses are clear. The mastoid air cells are well pneumatized. Orbits: The bony orbits are grossly intact. There are bilateral ocular lens implants. Chronic deformity and banding of the left globe is similar to previous. IMPRESSION: There is no hemorrhage, mass effect, or evidence of acute territorial ischemia by CT criteria. ACT 112: Negative or not required by law. Electronically signed by: Keith Grace M.D. 05/22/2022 11:24 PM Discharge Plan Visit Data Chief Complaint: Fall Stated Complaint: FALL[DOWN >24 HOURS] ED Provider: Aleksandr Velasquez Discharge Problem: Falls, Rhabdomyolysis, Acute dehydration, Acute hyperglycemia, Metabolic acidosis Forms Stand Alone Forms: [facility] [employer] Prescriptions Prescriptions: No Action (DME) FreeStyle Ruben 2 Sensor Kit See Rx Instructions .ROUTE .MEDSUPPLY Qty: 1 Rx Instructions: As directed insulin lispro [Humalog U-100 Insulin] 100 unit/mL solution See Rx Instructions .ROUTE .COMPLEX Qty: 90 3RF Rx Instructions: Infuse via insulin pump up to 90 units a day; cetirizine [Zyrtec] 10 mg tablet 10 mg PO DAILY PRN (Reason: Allergy Symptoms) amantadine HCl 100 mg capsule 100 mg PO AMHS (DME) OneTouch Verio test strips Strip See Rx Instructions .ROUTE .MEDSUPPLY Qty: 10 Rx Instructions: Test blood sugar once daily PRN gabapentin 300 mg capsule 300 mg PO BID aspirin [Yariel Low Dose Aspirin] 81 mg tablet,delayed release (DR/EC) 81 mg PO HS lorazepam 0.5 mg tablet 0.5 mg PO BID PRN (Reason: Anxiety) Xarelto 20 mg tablet 20 mg PO QPM carbidopa-levodopa 25-100 mg tablet 2 tab PO QID Referrals Referrals: Damaris Vega MD [Primary Care Provider] - : Falls Qualifiers: Encounter type: initial encounter Qualified Code(s): W19.XXXA - Unspecified fall, initial encounter Rhabdomyolysis Qualifiers: Rhabdomyolysis type: non-traumatic Qualified Code(s): M62.82 - Rhabdomyolysis
[2022-05-22 20:20] LABS: Hemoglobin 15.3 g/dl (12.0-16.0); Mean Corpuscular Hemoglobin 30.1 pg (25.0-34.0); Mean Corpuscular Hgb Conc 32.6 g/dL (32.0-36.0); Mean Corpuscular Volume 92.5 fL (80.0-100.0); Mean Platelet Volume 10.3 fL (9.4-12.3); Platelet Count 287 K/uL (130-400); RDW Standard Deviation 47.2 fL (36.4-46.3); Red Blood Count 5.08 M/uL (3.93-5.22); White Blood Count 15.88 K/ul (4.8-10.8)
[2022-05-22 20:34] LABS: INR 1.1 (0.9-1.1); Partial Thromboplastin Ratio 0.8; Partial Thromboplastin Time 22.3 Seconds (21.0-31.0); Prothrombin Time 11.4 Seconds (9.0-12.0)
[2022-05-22 20:35] LABS: Appearance Urine Clear (Clear); Bacteria Urine Automated Negative (Negative); Bilirubin Urine Negative (Negative); Blood Urine 2+ (Negative); Color Urine Yellow; Glucose Urine UA 3+ (Negative); Ketones Urine 4+ (Negative); Leukocyte Esterase Urine Negative (Negative); Nitrite Urine Negative (Negative); Protein Urine Trace (Negative); RBC Urine Automated 0-4 /hpf (0-4); Specific Gravity Urine 1.033 (1.000-1.030); Urobilinogen Urine Negative (Negative); pH Urine 5.5 (4.5-7.5)
[2022-05-22 20:39] LABS: Basophils # (auto) 0.02 K/uL (0-0.2); Basophils % (auto) 0.1 %; Echinocytes 1+; Immature Granulocytes # (auto) 0.11 K/uL (0.00-0.02); Immature Granulocytes % (auto) 0.7 %; Lymphocytes # (auto) 0.45 K/uL (1.2-3.4); Lymphocytes % (auto) 2.8 %; Neutrophils % (auto) 91.4 %
[2022-05-22 20:45] LABS: Albumin Level 4.1 gm/dl (3.4-5.0); BUN Creatinine Ratio 48.8 (10-20); Bilirubin Direct 0.4 mg/dl (0-0.2); Bilirubin,Total 2.2 mg/dl (0.2-1.0); Calcium 9.3 mg/dl (8.5-10.1); Creatinine Clr Calc Pharmacy 68.2 ml/min; Est GFR (African American) 83.6 ml/min; Est GFR (Non-African American) 72.1 ml/min; Magnesium 2.3 mg/dl (1.7-2.4); Potassium 4.4 mmol/L (3.5-5.1); Total Protein 6.9 gm/dl (6.0-8.3)
[2022-05-22 20:47] LABS: Troponin I High Sensitivity 21.2 pg/ml (0-14)
[2022-05-22 20:52] LABS: Allen Test Pos (Pos); Base Excess ABG -8.9 mEq/L (-9-1.8); HCO3 ABG 16 mmol/L (19-24); Oxygen Saturation ABG 95.6 % (90-95); PCO2 ABG 31 mmHg (35-46); PO2 ABG 71 mmHg (80-95); pH ABG 7.32 (7.35-7.45)
[2022-05-22 20:57] LABS: Influenza A virus by PCR Negative (Neg); Influenza B virus by PCR Negative (Neg); RSV by PCR Negative (Neg); SARS CoV2 RNA(COVID-19) Ceph NEGATIVE (Negative)
--- NOTE | 2022-05-22 22:47 | XRay Report ---
LEFT ELBOW 3 VIEWS CLINICAL HISTORY: Fall with left elbow injury. FINDINGS: 3 views of the left elbow are obtained. No prior studies are available for comparison at th e time of dictation. The examination is degraded by inability to properly position the patient. The s keletal structures are osteopenic. No fracture is seen. The joint spaces of the elbow grossly maintai hugo. The presence of a joint effusion cannot be assessed due to positioning. Anterior soft tissue azeb ma is noted. IMPRESSION: Soft tissue swelling with no radiographic evidence of acute fracture. Electronically signed by: Keith Grace M.D. 05/22/2022 10:45 PM
--- NOTE | 2022-05-22 22:48 | XRay Report ---
SINGLE VIEW CHEST CLINICAL HISTORY: Sepsis. FINDINGS: An AP, portable, upright chest radiograph is compared to study dated 05/21/2021. The heart i s enlarged noting atherosclerotic calcification of the thoracic aorta. The pulmonary vasculature is n oncongested. Chronic interstitial thickening is similar to previous. The lungs and pleural spaces are clear noting mild bibasilar atelectasis. No pneumothorax is seen. The skeletal structures are osteop enic. The bony thorax is grossly intact. IMPRESSION: Cardiomegaly with no acute cardiopulmonary abnormality identified. ACT 112: Negative or not required by law. Electronically signed by: Keith Grace M.D. 05/22/2022 10:46 PM
--- NOTE | 2022-05-22 23:27 | CT Scan Report ---
CT SCAN OF THE BRAIN WITHOUT IV CONTRAST CLINICAL HISTORY: Fall. Head injury. COMPARISON STUDY: CT of the brain dated 04/16/2022. TECHNIQUE: Unenhanced axial CT scan of the brain is performed from the vertex to the skull base. A do se lowering technique was utilized adhering to the principles of ALARA. FINDINGS: Brain parenchyma: There is age-related involutional change noting mild subcortical and periventricula r microangiopathic disease. There is no hemorrhage, mass effect, or evidence of acute territorial isc hemia by CT criteria. Kendrick-white matter differentiation is preserved. No extra-axial fluid collection is seen. Ventricles, sulci, cisterns: Prominent secondary to involutional change. Intracranial vasculature: There is atherosclerotic calcification of the cavernous carotid and vertebr al arteries. Calvarium: The skeletal structures are osteopenic. No depressed calvarial fracture is seen. Sinuses and mastoids: There is trace fluid in the left maxillary sinus. Trace because of thickening i s noted in the right maxillary antrum. The remaining Visualized paranasal sinuses are clear. The mast oid air cells are well pneumatized. Orbits: The bony orbits are grossly intact. There are bilateral ocular lens implants. Chronic deformi ty and banding of the left globe is similar to previous. IMPRESSION: There is no hemorrhage, mass effect, or evidence of acute territorial ischemia by CT loni valdivia. ACT 112: Negative or not required by law. Electronically signed by: Keith Grace M.D. 05/22/2022 11:24 PM
--- NOTE | 2022-05-22 23:32 | CT Scan Report ---
CT SCAN OF THE CERVICAL SPINE CLINICAL HISTORY: Fall. Neck pain. COMPARISON STUDY: CT of the cervical spine dated 04/16/2022. TECHNIQUE: CT scan of the cervical spine is performed from the skull base to the upper thoracic spine . Images are reviewed in the axial, sagittal, and coronal planes. IV contrast was not administered fo r this examination. A dose lowering technique was utilized adhering to the principles of ALARA. FINDINGS: Skeletal structures: The skeletal structures are osteopenic. There is no evidence of fracture or subl uxation involving the cervical spine. Vertebral body height and alignment are maintained. There is st raightening of the cervical lordosis. Anterior osteophytes are seen throughout. The odontoid process and lateral masses are intact. The atlantoaxial articulation is preserved note is productive degener ative change. The spinous processes appear intact. There is moderate multilevel cervical spondylosis. Uncovertebral and facet arthropathy contribute to neural foraminal narrowing at several levels. Intervertebral discs: There is mild/moderate disc space narrowing at C4-C5, C5-C6, and C6-C7. Central canal: Posterior disc osteophyte complexes at C4-C5, C5-C6, and C6-C7 may contribute to acqui red compromise of the central canal. Soft tissues: The prevertebral and paraspinous soft tissues are within normal limits. The right lobe of the thyroid gland is enlarged and heterogeneous. There is atherosclerotic calcification of the car otid bulbs. Calvarium: The visualized calvarium at the skull base appears intact. Brain parenchyma: Partially visualized brain parenchyma at the skull base is within normal limits. Sinuses and mastoids: There is trace mucosal thickening within the maxillary antra as well as tiny ai r-fluid levels. The mastoid air cells are well pneumatized. Lung apices: Clear as visualized. IMPRESSION: 1. There is no evidence of fracture or subluxation involving the cervical spine. 2. Osteopenia and spondylotic change as above. ACT 112: Negative or not required by law. Electronically signed by: Keith Grace M.D. 05/22/2022 11:30 PM
--- NOTE | 2022-05-22 23:42 | CT Scan Report ---
CT SCAN OF THE ABDOMEN AND PELVIS WITHOUT IV CONTRAST CLINICAL HISTORY: Fall. COMPARISON STUDY: Abdominal CT dated 09/14/2014. TECHNIQUE: CT scan of the abdomen and pelvis is performed from the lung bases to the proximal femora. Images are reviewed in the axial, sagittal, and coronal planes. IV contrast was not administered for this examination. Note that the examination is suboptimal without oral and IV contrast. There is str eak artifact from the arms which could not be elevated above the abdomen. A dose lowering technique w as utilized adhering to the principles of ALARA. CT DOSE: 2305.03 mGy.cm FINDINGS: Lung bases: The heart is top normal in size and without pericardial effusion. The coronary arteries a re densely calcified. There is a small hiatal hernia. The lung bases are clear noting mild bibasilar atelectasis. Liver: The unenhanced liver is normal in size, contour, and attenuation. There is no intrahepatic lenin iary ductal dilatation. Gallbladder: Surgically absent noting clips in the gallbladder fossa. Spleen: Normal in size and attenuation. Pancreas: The unenhanced pancreas is atrophic and grossly unremarkable. Adrenal glands: Unremarkable. Kidneys: The unenhanced kidneys are normal in size and without hydronephrosis. There is a punctate no nobstructing left renal calculus. No right renal calculi are identified and no ureteral stone is seen . There is no evidence of contour deforming renal mass lesion. Abdominal vasculature: The abdominal aorta is normal in course and caliber noting moderate to advance d atherosclerotic calcification. Bowel: There is mild colonic fecal retention. Findings suggest malrotation of the bowel. The duodenum fails to cross the midline and the colon is located in the left abdomen. No bowel obstruction is see n. The appendix is not visualized. Peritoneum: There is no intraperitoneal free air or abdominal ascites. There is a fat-containing umbi lical hernia. Lymphadenopathy: None. Pelvic viscera: The bladder is decompressed around a Macedo catheter. The uterus and adnexa are normal as imaged. Skeletal structures: The skeletal structures are osteopenic. There is moderate to advanced lumbosacra l spondylosis. The lumbosacral spine, bony pelvis, and proximal femora appear intact No lytic or eric tic lesions are seen. IMPRESSION: 1. There is no evidence of solid organ injury in the abdomen or pelvis on this unenhanced examination . 2. Left-sided nephrolithiasis. 3. There is no bowel obstruction. 4. Additional findings as above. ACT 112: Negative or not required by law. Electronically signed by: Keith Grcae M.D. 05/22/2022 11:39 PM
[2022-05-22] MEDS ORDERED: PIPERACILLIN/TAZOBACTAM 4.5 GM/120 ML BAG IV ONE (23:56)
--- NOTE | 2022-05-23 00:26 | History & Physical Report ---
Date of Service May 23, 2022 Assessment & Plan (1) Rhabdomyolysis: Plan: 76yo female with PMH of Parkinson's, paroxysmal afib, DM2 with neuropathy, anxiety who presented after being found on the floor of her home by family members. Rhabdomyolysis in the setting of a fall from bed while sleeping CK 1778 on admission Kidney function normal on admission Will start LR at 80 cc/h gentle hydration at this time due to history of grade 2 diastolic dysfunction on echocardiogram from August 2019, of note echocardiogram from January 2020 made no mention of this If CK continuing to rise can consider increasing fluid rate while monitoring her for fluid overload Recheck CK in a.m. PT/OT to evaluate for home needs Admit to med telemetry Leukocytosis Unclear etiology patient does report sore throat and cough for the last couple of days, ?viral Possible may be reactive as well Pro-Keenan negative CXR without signs of acute disease, CT A/P negative for signs of infection as well Blood cultures drawn in ED, pending Received dose of Zosyn in ED consider additional antibiotics if clear source of infection or empirically if white count continues to rise Repeat CBC in a.m. Elevated troponin Likely demand in the setting of A. fib with RVR no chest pain Trend to peak A. fib with RVR Anticoagulated on Xarelto Not on any rate controlling medication Consider doses of IV metoprolol tartrate if rates consistently elevated Chronic diastolic heart failure Type II diastolic dysfunction with normal LV function per echo in August 2019 Cardiology report from December 2021 alluding to as needed Bumex use however, per med list from [facility] chart Bumex 0.5 mg daily prescribed Will hold off on any Bumex dosing at this time DM2 with neuropathy Significant glucose elevation on presentation to hospital Possibly reactive/stress response Hold insulin pump Basal/SSI while admitted Glucose checks ACHS Continue gabapentin 300 mg twice daily Parkinson's Continue home Sinemet and amantadine History of TIA In 2004 Continue aspirin 81 mg daily Diet: Heart healthy, DM 2 DVT prophylaxis: Anticoagulated on Xarelto Dispo: Admit to med telemetry, PT/OT for home needs CODE STATUS: Full (2) CHF (congestive heart failure): (3) Parkinsons disease: (4) A-fib: (5) Sensorineural hearing loss (SNHL) of both ears: (6) Anxiety: (7) Falls: (8) DM (diabetes mellitus), type 2, uncontrolled w/neurologic complication: (9) Leukocytosis: (10) Elevated troponin: History of Present Illness Primary Care Provider: Damaris Vega MD 76yo female with PMH of Parkinson's, paroxysmal afib, DM2 with neuropathy, anxiety who presented after being found on the floor of her home by family members. Patient lives alone and states that she fell from bed and was unable to get up. She does have significant ambulatory dysfunction at baseline in the setting of her Parkinson's and diabetic neuropathy. She denies feeling lightheaded or dizzy. Says she believes she was asleep as she does not remember the fall, just remembers getting into bed to sleep. She denies neck or back pain, only left elbow pain at this time. No LOYA, dizziness, n/v. Also denies CP, palp, SOB, abd pain. She does state she has had a sore throat and mild cough for the last 2 days or so. No known sick contacts. Denies f/c, body/muscle aches. In ED patient had lab work significant for CK of 1774, glucose 346, BUN 39 with normal creatinine and BUN/Cr ratio of 48.8. Had a mild metabolic acidosis with anion gap of 18. Leukocytosis of 15.88. Troponin of 21.2. She was given 1L NSS and a dose of Zosyn. Blood cultures were drawn. Negative for COVID, Flu, and RSV. CT head negative, CT A/P w/o significant acute findings, CT C-spine w/o acute injury, elbow XR w/o fracture, CXR w/o acute disease (see complete reads for further details). Allergies Allergy/AdvReac Type Severity Reaction Status Date / Time benztropine Allergy Unknown PT NOT SURE Verified 05/22/22 20:22 citalopram Allergy Unknown PT NOT SURE Verified 05/22/22 20:22 doxycycline Allergy Unknown REMOTE HX, Verified 05/22/22 20:22 PT NOT SURE REACTION minocycline Allergy Unknown REMOTE HX, Verified 05/22/22 20:22 PT NOT SURE REACTION simvastatin Allergy Unknown PT NOT SURE Verified 05/22/22 20:22 sulindac Allergy Unknown PT NOT SURE Verified 05/22/22 20:22 empagliflozin AdvReac Intermediate Recurrent Verified 05/22/22 20:22 [From Jardiance] Urinary Tract Infection Home Medications Medication Instructions Recorded Confirmed Type aspirin 81 mg tablet,delayed 81 mg PO HS 01/19/19 05/22/22 History release (Yariel Low Dose Aspirin) lorazepam 0.5 mg tablet 0.5 mg PO BID PRN Anxiety 11/08/19 05/22/22 History rivaroxaban 20 mg tablet (Xarelto) 20 mg PO QPM 11/08/19 05/22/22 History carbidopa 25 mg-levodopa 100 mg 2 tab PO QID 02/07/20 05/22/22 History tablet flash glucose sensor (FreeStyle #1 ea 09/02/20 05/22/22 History Ruben 2 Sensor kit) insulin lispro 100 unit/mL See Rx Instructions .Route 02/21/21 05/22/22 Rx subcutaneous solution (Humalog .COMPLEX #90 mL U-100 Insulin) gabapentin 300 mg capsule 300 mg PO BID 10/15/21 05/22/22 History amantadine HCl 100 mg capsule 100 mg PO AMHS 01/13/22 05/22/22 History blood sugar diagnostic (OneTouch #10 ea 01/13/22 05/22/22 History Verio test strips) cetirizine 10 mg tablet (Zyrtec) 10 mg PO DAILY PRN Allergy Symptoms 01/13/22 05/22/22 History Past Med/Surg History Medical History Acoustic neuroma FOLLOWS DR MITCHELL - UPCOMING RADIATION TREATMENT AFTER CATARACT SURGERY Anxiety Chronic heart failure Complicated migraine "COMPLICATED MIGRAINES" - OCCUR OFTEN AND RESEMBLE SYMPTOMS OF A STROKE PER PT Diabetes INSULIN PUMP GERD (gastroesophageal reflux disease) HX History of colon polyps History of high cholesterol History of TIA (transient ischemic attack) 2004 ,HX PT FOR, NO REMAINING RESIDUAL EFFECTS Hypertension HX BLOOD PRESSURE MEDICINE, ONCE A FIB DX - MED WAS D/C'D - PT REPORTS BLOOD PRESSURE USUALLY RUNS LOW AROUND 106/58 Mitral valve disorder DENIES Obesity Parkinson disease Permanent atrial fibrillation DX 2 YR AGO, NO HX CARDIOVERSION Surgical History H/O breast biopsy 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 History of left knee replacement S/P appendectomy HX S/P cholecystectomy HX Family History Mother Diabetes Congestive heart failure Colorectal cancer Hypertension Brother Congestive heart failure Colorectal cancer Sister Cancer Unknown Pancreatic cancer Son Family history of colonic polyps Social History Smoking Status: Unknown if ever smoked Second Hand Exposure: No; Hx Alcohol Use: Yes Alcohol type: wine Hx Substance Use: No Preferred Language: Gambian Communication Ability: Effective Visual Impairment: No Limitations Cmo Required: No Beliefs That Will Affect Care: None marital status: Unknown Current Living Situation: Alone How many Children do You have: 2 Feels Safe at Home: Yes Assistive Devices: Walker Review of Systems Review of Systems: Per HPI Physical Exam Physical Exam: GENERAL: A&Ox3. NAD. HEENT: PERRL, EOMI. Dry mucous membranes. NECK: No JVD. No lymphadenopathy. CHEST/LUNGS: CTAB A/P. No crackles, wheezes, rales, rhonchi. HEART: RRR. No m/g/r. No carotid bruits. ABDOMEN: NT/ND, soft. BS+ x4 EXTREMITIES: No cyanosis, no clubbing, no edema SKIN: Warm and dry. No rashes or lesions. PSYCHIATRIC: Euthymic affect, no SI, no pressured speech, no hallucinations NEUROLOGIC: No FND. Results & Data Results & Data ([facility]) Vital Signs (Past 12 Hours) Vital Signs Temp Pulse Pulse Resp BP BP Pulse Ox 05/22/22 22:04 36.9 C 97 H 24 169/69 H 95 05/22/22 21:16 111 H 22 169/72 H 93 05/22/22 20:00 36.6 C 105 H 26 H 138/84 96 O2 Del Method 05/22/22 22:04 Room Air 05/22/22 21:16 05/22/22 20:00 Room Air Supervising Physician Co-Signing Physician Notes Patient seen and examined, chart reviewed, case discussed with Dr. Alice Youssef and I agree with the assessment and plan as above. In brief, patient is a 76yo female with history of PD, PAF, DM. She lives at home alone. She fell out of bed and was unable to get up. She was found by family members. She does not clearly recall the events of the fall. Denies pain in the head or neck. She is having pain only in left elbow. Also with sore throat and cough x 2 days. No additional complaints. On exam she is resting comfortably. Easily arousable. +Tremor +S1/S2, regular Lungs CTA Abd soft, NT/ND Left elbow abrasion Labs and images reviewed CK elevated at 1774, [id number] Assessment/Plan - 76yo female with PD, DM, PAF found down at home. Mild rhabdomyolysis with OX=[id number]. -IVF, repeat CK in AM. Monitor renal function -Trend troponin -Montior for developing infection - patient with leukocytosis -Remainder as above Resident Activity Tracking Resident Involvement: Resident Care Provided Care Provided: Adult Hospital Medicine (1) Rhabdomyolysis Rhabdomyolysis type: non-traumatic Qualified Code(s): M62.82 - Rhabdomyolysis
[2022-05-23] MEDS ORDERED: GLUCAGON FOR INJ 1 MG VIAL SQ PRN (00:55)
[2022-05-23] MEDS ORDERED: DEXTROSE 50% 50 ML SYRINGE IV PRN (00:55)
[2022-05-23] MEDS ORDERED: ALUMINUM/MAGNESIUM SUSP 30 ML UDC PO PRN (00:55)
[2022-05-23] MEDS ORDERED: GLUCOSE 10 TAB/TUBE PO PRN (00:55)
[2022-05-23] MEDS ORDERED: GLUCOSE 40% GEL 15 GM TUBE PO PRN (00:55)
[2022-05-23] MEDS ORDERED: CARBOHYDRATES FOR HYPOGLYCEMIA PO PRN (00:55)
--- NOTE | 2022-05-23 04:01 | Billing Data ---
Date of Service May 23, 2022 Coding Level of Care Code 11068 Initial Inpt Care Lvl 3
[2022-05-23 04:39] LABS: Basophils # (auto) 0.01 K/uL (0-0.2); Basophils % (auto) 0.1 %; Hematocrit (blood only) 44.3 % (34.1-44.9); Hemoglobin 14.5 g/dl (12.0-16.0); Immature Granulocytes # (auto) 0.08 K/uL (0.00-0.02); Immature Granulocytes % (auto) 0.5 %; Lymphocytes % (auto) 3.9 %; Mean Corpuscular Hemoglobin 30.3 pg (25.0-34.0); Mean Corpuscular Hgb Conc 32.7 g/dL (32.0-36.0); Mean Corpuscular Volume 92.5 fL (80.0-100.0); Mean Platelet Volume 10.3 fL (9.4-12.3); Monocytes % (auto) 6.5 %; Neutrophils # (auto) 13.73 K/uL (1.4-6.5); Platelet Count 268 K/uL (130-400); RDW Coefficient of Variation 14.1 % (11.5-14.5); RDW Standard Deviation 47.7 fL (36.4-46.3); Red Blood Count 4.79 M/uL (3.93-5.22); White Blood Count 15.42 K/ul (4.8-10.8)
[2022-05-23] MEDS: LACTATED RINGER'S 1,000 ML IV SCH ×2 (04:44→16:38)
[2022-05-23] MEDS: ACETAMINOPHEN 325 MG TAB PO PRN (04:58)
[2022-05-23 05:48] LABS: BUN Creatinine Ratio 46.9 (10-20); Calcium 8.9 mg/dl (8.5-10.1); Creatinine Clr Calc Pharmacy 64.4 ml/min; Est GFR (African American) 82.3 ml/min; Magnesium 2.2 mg/dl (1.7-2.4); Potassium 4.5 mmol/L (3.5-5.1)
[2022-05-23] MEDS ORDERED: INSULIN ASPART PER UNIT SC STA (06:10)
[2022-05-23] MEDS: AMANTADINE HCL 100 MG CAPSULE PO SCH ×2 (08:59→20:04)
[2022-05-23] MEDS: CARBIDOPA/LEVODOPA 25/100MG TAB PO SCH ×4 (08:59→20:05)
[2022-05-23] MEDS ORDERED: GABAPENTIN 300 MG CAP PO SCH (09:00)
[2022-05-23] MEDS: INSULIN ASPART PER UNIT SC SCH ×4 (09:36→21:20)
[2022-05-23] MEDS: LANTUS PER UNIT CHARGE SQ SCH ×3 (09:37→21:30)
[2022-05-23] MEDS ORDERED: cefTRIAXone SODIUM 1,000 MG in DEXTROSE 5% AD-VAN 50 ML IV SCH (10:30)
[2022-05-23 10:40] LABS: Estimated Average Glucose 183 mg/dl
[2022-05-23] MEDS: cefTRIAXone SODIUM 2,000 MG in DEXTROSE 5% 50 ML IV SCH (11:47)
--- NOTE | 2022-05-23 14:36 | Electrocardiogram Report ---
Test Reason : Blood Pressure : / mmHG Vent. Rate : 104 BPM Atrial Rate : 111 BPM P-R Int : 000 ms QRS Dur : 082 ms QT Int : 356 ms P-R-T Axes : 000 -57 145 degrees QTc Int : 468 ms Poor data quality, interpretation may be adversely affected Atrial fibrillation with rapid ventricular response Left anterior fascicular block Poor R wave progression, consider anterior WI vs. lead placement vs. LVH Nonspecific ST and T wave abnormality Abnormal ECG When compared with ECG of 08-JUN-2020 08:53, Nonspecific T wave abnormality now evident in Inferior leads Confirmed by Aleksandr Carrera ([id number]) on 05/23/2022 2:35:56 PM Referred By: REFERRED SELF Confirmed By:Aleksandr Carrera
[2022-05-23] MEDS: NYSTATIN POWDER 15GM BTL EXT SCH ×2 (15:18→20:06)
[2022-05-23] MEDS: BUTT PASTE (ZINC OXIDE 16%) 171 APPLN/57 GM JAR EXT SCH ×2 (15:18→20:06)
--- NOTE | 2022-05-23 16:21 | Hospitalist Progress Note ---
Date of Service May 23, 2022 Assessment & Plan (1) Rhabdomyolysis: Plan: Mild. Continue IV fluids and serial CK levels. No evidence of renal issues with mildly elevated CK at this point. (2) CHF (congestive heart failure): Plan: Chronic diastolic failure. No overt exacerbation at this time. Monitor intake and output. Continue current medical management (3) Parkinsons disease: Plan: Stable with current medical management (4) A-fib: Plan: Chronic. Continue Xarelto therapy. Medication management. (5) Sensorineural hearing loss (SNHL) of both ears: Plan: Aware. Supportive care (6) Anxiety: Plan: Continue current medication. (7) Falls: Plan: Treat underlying acute problems. OT and PT assessments (8) DM (diabetes mellitus), type 2, uncontrolled w/neurologic complication: Plan: ADA diet. Up titration of Lantus as needed. Sliding scale coverage. (9) Leukocytosis: Plan: Due to underlying infection. Continue antibiotics. Serial labs (10) Elevated troponin: Plan: Probably chronic. No evidence of acute [place] (11) Peripheral neuropathy: Plan: The patient states her symptoms have worsened. Gabapentin up titrated today, May 23. Plan To be determined. OT and PT assessments have been requested Admission and Anticipated Discharge Date Admission Date: May 23, 2022 Subjective Alert. She is feeling better. CK is trending downward. Lantus dosage uptitrated for better glucose control. Urine culture pending. Gabapentin dosage uptitrated for better neuropathy control. Currently on Rocephin, day 1 Review of Systems Review of Systems: Constitutional-no fever or chills ENT-no blurred vision, no double vision, no epistaxis, no sore throat Respiratory-no cough, no wheezing, no shortness of breath Cardiac-no palpitations, no chest pain, no syncope GI-no nausea, vomiting, diarrhea, melena, hematochezia -no urinary retention, no urinary incontinence, no dysuria, no hematuria Musculoskeletal-no joint pain, no muscle tenderness Skin-no bruising, no rashes, no pruritus Neuro-no isolated weakness, no paresthesia, no weakness Psych-no depression, no anxiety Physical Exam Physical Exam: General-alert and oriented x3, no fevers, no chills HEENT-head atraumatic and normocephalic, pupils equal and reactive to light, extraocular muscles intact Neck-no lymphadenopathy or thyromegaly, trachea midline Chest-clear to auscultation percussion. No rales wheezing or rhonchi Cardiac-regular rate and rhythm, normal S1 and S2 Abdomen-normal bowel sounds, nontender, no hepatosplenomegaly Extremities-no cyanosis, clubbing, or edema Neuro-cranial nerves II through XII intact, motor and sensory function within normal limits, strength symmetrical , no focal deficits Psych-normal affect, normal mood Results & Data Results & Data ([facility]) Vital Signs (Past 12 Hours) Vital Signs Temp Pulse Resp BP Pulse Ox O2 Del Method 05/23/22 15:46 36.7 C 85 18 134/72 97 Room Air 05/23/22 11:26 37.3 C 95 H 146/69 H 95 Room Air 05/23/22 08:16 36.9 C 100 H 18 148/72 H 96 Room Air Laboratory Results 05/23/22 03:58 05/23/22 03:58 PG Care Time/CCT Total # of Minutes Spent Total Time Spent with Patient: Total time spent is greater than 50% in coordination of care (as documented) at patient's floor/unit and/or counseling patient: Coding Level of Care Code 78867 Subseq Hosp Care Lvl 3 Diagnoses Rhabdomyolysis M62.82 Rhabdomyolysis type: non-traumatic CHF (congestive heart failure) I50.9 Parkinsons disease G20 A-fib I48.91 Sensorineural hearing loss (SNHL) of both ears H90.3 Anxiety F41.9 Falls W19.XXXA DM (diabetes mellitus), type 2, uncontrolled w/neurologic complication E11.49; E11.65 Leukocytosis D72.829 Elevated troponin R77.8 Peripheral neuropathy G62.9 (1) Rhabdomyolysis Rhabdomyolysis type: non-traumatic Qualified Code(s): M62.82 - Rhabdomyolysis
[2022-05-23] MEDS: RIVAROXABAN 20 MG TAB PO SCH (16:39)
[2022-05-23] MEDS: GABAPENTIN 400 MG CAP PO SCH (20:05)
[2022-05-23] MEDS: ASPIRIN 81 MG ECTAB PO SCH (20:06)
[2022-05-24] MEDS ORDERED: COUGH DROP (SUGAR FREE) LOZ 24 LOZ/1 BOX BUCCAL PRN (00:03)
[2022-05-24] MEDS: LACTATED RINGER'S 1,000 ML IV SCH ×2 (04:50→16:03)
[2022-05-24 06:20] LABS: Basophils # (auto) 0.01 K/uL (0-0.2); Basophils % (auto) 0.2 %; Eosinophils # (auto) 0.07 K/uL (0-0.50); Eosinophils % (auto) 1.1 %; Hematocrit (blood only) 37.8 % (34.1-44.9); Hemoglobin 12.7 g/dl (12.0-16.0); Immature Granulocytes # (auto) 0.03 K/uL (0.00-0.02); Immature Granulocytes % (auto) 0.5 %; Lymphocytes # (auto) 1.25 K/uL (1.2-3.4); Lymphocytes % (auto) 19.9 %; Mean Corpuscular Hemoglobin 30.6 pg (25.0-34.0); Mean Corpuscular Hgb Conc 33.6 g/dL (32.0-36.0); Mean Corpuscular Volume 91.1 fL (80.0-100.0); Monocytes # (auto) 0.53 K/uL (0.24-0.82); Monocytes % (auto) 8.4 %; Neutrophils % (auto) 69.9 %; Platelet Count 168 K/uL (130-400); RDW Coefficient of Variation 13.7 % (11.5-14.5); RDW Standard Deviation 45.1 fL (36.4-46.3); Red Blood Count 4.15 M/uL (3.93-5.22); White Blood Count 6.29 K/ul (4.8-10.8)
[2022-05-24 07:18] LABS: BUN Creatinine Ratio 45.3 (10-20); Calcium 8.2 mg/dl (8.5-10.1); Est GFR (African American) 107.6 ml/min; Est GFR (Non-African American) 92.9 ml/min; Potassium 3.2 mmol/L (3.5-5.1)
[2022-05-24] MEDS: INSULIN ASPART PER UNIT SC SCH ×4 (09:12→20:29)
[2022-05-24] MEDS: LANTUS PER UNIT CHARGE SQ SCH ×2 (09:14→20:30)
[2022-05-24] MEDS: GABAPENTIN 400 MG CAP PO SCH ×2 (09:16→20:32)
[2022-05-24] MEDS: AMANTADINE HCL 100 MG CAPSULE PO SCH ×2 (09:16→20:33)
[2022-05-24] MEDS: CARBIDOPA/LEVODOPA 25/100MG TAB PO SCH ×4 (09:17→20:31)
[2022-05-24] MEDS: NYSTATIN POWDER 15GM BTL EXT SCH ×2 (09:18→20:30)
[2022-05-24] MEDS: BUTT PASTE (ZINC OXIDE 16%) 171 APPLN/57 GM JAR EXT SCH ×2 (09:18→20:31)
[2022-05-24] MEDS: POTASSIUM CHLORIDE 10 MEQ TABCR PO SCH ×2 (10:29→20:33)
[2022-05-24] MEDS: cefTRIAXone SODIUM 2,000 MG in DEXTROSE 5% 50 ML IV SCH (13:06)
--- NOTE | 2022-05-24 14:36 | Hospitalist Progress Note ---
Date of Service May 24, 2022 Assessment & Plan (1) Rhabdomyolysis: Plan: Mild. Continue IV fluids and serial CK levels. No evidence of renal issues with mildly elevated CK at this point. (2) CHF (congestive heart failure): Plan: Chronic diastolic failure. No overt exacerbation at this time. Monitor intake and output. Continue current medical management (3) Parkinsons disease: Plan: Stable with current medical management (4) A-fib: Plan: Chronic. Continue Xarelto therapy. Medication management. (5) Sensorineural hearing loss (SNHL) of both ears: Plan: Aware. Supportive care (6) Anxiety: Plan: Continue current medication. (7) Falls: Plan: Treat underlying acute problems. OT and PT assessments (8) DM (diabetes mellitus), type 2, uncontrolled w/neurologic complication: Plan: ADA diet. Up titration of Lantus as needed. Sliding scale coverage. (9) Leukocytosis: Plan: Infectious process ruled out. Antibiotics discontinued. This is probably reactive. Serial labs (10) Elevated troponin: Plan: Probably chronic. No evidence of acute [place] (11) Peripheral neuropathy: Plan: The patient states her symptoms have recently worsened. Gabapentin up titrated on May 23. Plan To be determined. OT and PT assessments have been requested Admission and Anticipated Discharge Date Admission Date: May 23, 2022 Subjective Alert and oriented. No new problems. CK level is up slightly from yesterday but not critical. Potassium is low again and oral potassium replacement ordered. Blood and urine cultures are negative. Rocephin has been discontinued. Glucose improved to 210 after Lantus dosage uptitrated yesterday, May 23. She is tolerating mild upward titration of gabapentin which was also done on May 23. Review of Systems Review of Systems: Constitutional-no fever or chills ENT-no blurred vision, no double vision, no epistaxis, no sore throat Respiratory-no cough, no wheezing, no shortness of breath Cardiac-no palpitations, no chest pain, no syncope GI-no nausea, vomiting, diarrhea, melena, hematochezia -no urinary retention, no urinary incontinence, no dysuria, no hematuria Musculoskeletal-no joint pain, no muscle tenderness Skin-no bruising, no rashes, no pruritus Neuro-no isolated weakness, no paresthesia, no weakness Psych-no depression, no anxiety Physical Exam Physical Exam: General-alert and oriented x3, no fevers, no chills HEENT-head atraumatic and normocephalic, pupils equal and reactive to light, extraocular muscles intact Neck-no lymphadenopathy or thyromegaly, trachea midline Chest-clear to auscultation percussion. No rales wheezing or rhonchi Cardiac-regular rate and rhythm, normal S1 and S2 Abdomen-normal bowel sounds, nontender, no hepatosplenomegaly Extremities-no cyanosis, clubbing, or edema Neuro-cranial nerves II through XII intact, motor and sensory function within normal limits, strength symmetrical , no focal deficits Psych-normal affect, normal mood Results & Data Results & Data ([facility]) Vital Signs (Past 12 Hours) Vital Signs Temp Pulse Pulse Resp BP Pulse Ox O2 Del Method 05/24/22 11:48 36.9 C 77 18 142/80 H 98 Room Air 05/24/22 07:06 69 05/24/22 06:28 37.0 C 69 18 143/79 H 96 Room Air Laboratory Results 05/24/22 05:46 05/24/22 05:46 PG Care Time/CCT Total # of Minutes Spent Total Time Spent with Patient: Total time spent is greater than 50% in coordination of care (as documented) at patient's floor/unit and/or counseling patient: Coding Level of Care Code 88654 Subseq Hosp Care Lvl 3 Diagnoses Rhabdomyolysis M62.82 Rhabdomyolysis type: non-traumatic CHF (congestive heart failure) I50.9 Parkinsons disease G20 A-fib I48.91 Sensorineural hearing loss (SNHL) of both ears H90.3 Anxiety F41.9 Falls W19.XXXA DM (diabetes mellitus), type 2, uncontrolled w/neurologic complication E11.49; E11.65 Leukocytosis D72.829 Elevated troponin R77.8 Peripheral neuropathy G62.9 (1) Rhabdomyolysis Rhabdomyolysis type: non-traumatic Qualified Code(s): M62.82 - Rhabdomyolysis
[2022-05-24] MEDS: ACETAMINOPHEN 325 MG TAB PO PRN (15:57)
[2022-05-24] MEDS: RIVAROXABAN 20 MG TAB PO SCH (15:58)
[2022-05-24] MEDS: ASPIRIN 81 MG ECTAB PO SCH (20:31)
[2022-05-25] MEDS: ACETAMINOPHEN 325 MG TAB PO PRN (00:45)
[2022-05-25] MEDS: LACTATED RINGER'S 1,000 ML IV SCH ×2 (04:19→16:56)
[2022-05-25 07:14] LABS: Basophils # (auto) 0.02 K/uL (0-0.2); Basophils % (auto) 0.4 %; Eosinophils # (auto) 0.21 K/uL (0-0.50); Eosinophils % (auto) 4.6 %; Hematocrit (blood only) 38.2 % (34.1-44.9); Hemoglobin 12.8 g/dl (12.0-16.0); Immature Granulocytes # (auto) 0.04 K/uL (0.00-0.02); Immature Granulocytes % (auto) 0.9 %; Lymphocytes # (auto) 1.23 K/uL (1.2-3.4); Lymphocytes % (auto) 26.9 %; Mean Corpuscular Hemoglobin 30.8 pg (25.0-34.0); Mean Corpuscular Hgb Conc 33.5 g/dL (32.0-36.0); Mean Corpuscular Volume 91.8 fL (80.0-100.0); Mean Platelet Volume 10.2 fL (9.4-12.3); Monocytes # (auto) 0.35 K/uL (0.24-0.82); Monocytes % (auto) 7.6 %; Neutrophils # (auto) 2.73 K/uL (1.4-6.5); Neutrophils % (auto) 59.6 %; Platelet Count 172 K/uL (130-400); RDW Coefficient of Variation 13.9 % (11.5-14.5); RDW Standard Deviation 46.3 fL (36.4-46.3); Red Blood Count 4.16 M/uL (3.93-5.22); White Blood Count 4.58 K/ul (4.8-10.8)
[2022-05-25 08:11] LABS: BUN Creatinine Ratio 43.8 (10-20); Calcium 8.1 mg/dl (8.5-10.1); Creatinine Clr Calc Pharmacy 111.5 ml/min; Est GFR (African American) 111.2 ml/min; Potassium 3.2 mmol/L (3.5-5.1)
[2022-05-25] MEDS: AMANTADINE HCL 100 MG CAPSULE PO SCH ×2 (08:15→20:07)
[2022-05-25] MEDS: GABAPENTIN 400 MG CAP PO SCH ×2 (08:15→20:08)
[2022-05-25] MEDS: CARBIDOPA/LEVODOPA 25/100MG TAB PO SCH ×4 (08:15→20:07)
[2022-05-25] MEDS: BUTT PASTE (ZINC OXIDE 16%) 171 APPLN/57 GM JAR EXT SCH ×2 (08:16→20:09)
[2022-05-25] MEDS: NYSTATIN POWDER 15GM BTL EXT SCH ×2 (08:16→20:07)
[2022-05-25] MEDS: POTASSIUM CHLORIDE 10 MEQ TABCR PO SCH ×2 (08:16→20:08)
[2022-05-25] MEDS: INSULIN ASPART PER UNIT SC SCH ×4 (08:44→20:05)
[2022-05-25] MEDS: LANTUS PER UNIT CHARGE SQ SCH ×2 (08:46→20:06)
--- NOTE | 2022-05-25 13:28 | Hospitalist Progress Note ---
Date of Service May 25, 2022 Assessment & Plan (1) Rhabdomyolysis: Plan: Mild. Continue IV fluids and serial CK levels. No evidence of renal issues with mildly elevated CK at this point. Much improved, CK 999 today, was >2000 on admission (2) CHF (congestive heart failure): Plan: Chronic diastolic failure. No overt exacerbation at this time. Monitor intake and output. Continue current medical management (3) Parkinsons disease: Plan: Stable with current medical management (4) A-fib: Plan: Chronic. Continue Xarelto therapy. Medication management. (5) Sensorineural hearing loss (SNHL) of both ears: Plan: Aware. Supportive care (6) Anxiety: Plan: Continue current medication. (7) Falls: Plan: Treat underlying acute problems. OT and PT assessments (8) DM (diabetes mellitus), type 2, uncontrolled w/neurologic complication: Plan: ADA diet. Up titration of Lantus as needed. Sliding scale coverage. Glucose under good control (9) Leukocytosis: Plan: Infectious process ruled out. Antibiotics discontinued. This is probably reactive. Serial labs (10) Elevated troponin: Plan: Probably chronic. No evidence of acute [place] (11) Peripheral neuropathy: Plan: The patient states her symptoms have recently worsened. Gabapentin up titrated on May 23. (12) Constipation: Plan: On Miralax Plan To be determined. OT and PT assessments have been requested Admission and Anticipated Discharge Date Admission Date: May 23, 2022 Subjective patient seen abd examined, feels overall better, complains of constipation Review of Systems Review of Systems: All systems reviewed are negative, apart from the ones contained in the history. Physical Exam Physical Exam: The patient is awake, alert and oriented 3, well developed and well nourished, normocephalic and atraumatic, lying in bed and in no acute distress. HEENT--PERRL, EOMI, mucous membranes and oropharynx mildly dry Neck--supple. No JVD. No bruits. Thyroid normal, trachea midline, no adenopathy. Heart--normal S1 and S2. No murmurs, rubs or gallops. Lungs--clear bilaterally, no respiratory distress, no accessory muscle use. Abdomen--normal bowel sounds and soft. Mild epigastric and left sided abdominal pain Extremities--no cyanosis or clubbing. No edema. Dermatologic--normal skin turgor, normal color, no abnormal lymph nodes, no rash. Neurologic--cranial nerves II through XII grossly intact. Rheumatologic--normal range of motion. Psychiatric--normal affect. Results & Data Results & Data ([facility]) Vital Signs (Past 12 Hours) Vital Signs Temp Pulse Pulse Resp BP Pulse Ox O2 Del Method 05/25/22 11:50 99.0 F 67 20 164/77 H 96 Room Air 05/25/22 08:30 98.2 F 67 20 132/85 96 Room Air 05/25/22 07:33 70 05/25/22 01:56 97.9 F 67 18 153/66 H 96 Room Air PG Care Time/CCT Total # of Minutes Spent Total Time Spent with Patient: Total time spent is greater than 50% in coordination of care (as documented) at patient's floor/unit and/or counseling patient: Coding Level of Care Code 43302 Subseq Hosp Care Lvl 2 Diagnoses Rhabdomyolysis M62.82 Rhabdomyolysis type: non-traumatic CHF (congestive heart failure) I50.9 Parkinsons disease G20 A-fib I48.91 Sensorineural hearing loss (SNHL) of both ears H90.3 Anxiety F41.9 Falls W19.XXXA DM (diabetes mellitus), type 2, uncontrolled w/neurologic complication E11.49; E11.65 Leukocytosis D72.829 Elevated troponin R77.8 Peripheral neuropathy G62.9 Constipation K59.00 Time Spent (min) 35 (1) Rhabdomyolysis Rhabdomyolysis type: non-traumatic Qualified Code(s): M62.82 - Rhabdomyolysis
[2022-05-25] MEDS: RIVAROXABAN 20 MG TAB PO SCH (16:58)
[2022-05-25] MEDS: ASPIRIN 81 MG ECTAB PO SCH (20:07)
[2022-05-25] MEDS: LORazepam 0.5 MG TAB PO PRN (21:20)
[2022-05-26] MEDS: LACTATED RINGER'S 1,000 ML IV SCH ×2 (05:35→19:35)
[2022-05-26] MEDS: POLYETHYLENE (MIRALAX) 17 GM PACK PO PRN (05:35)
--- NOTE | 2022-05-26 06:12 | Communication Note ---
Date of Service: May 26, 2022 Notified by patient's nurse that patient woke up reporting 3 out of 10 substernal chest pain. The bedside, patient appears relaxed. She describes the pain as somewhat sharp, but also difficult to describe. She points to the pain in the area of the xiphoid. She says she feels a little winded but no true SOB; denies palpitations. She denies any belly pain, nausea, or vomiting. She denies radiation of the pain. at the bedside, vitals are 131/73, heart rate 67, respiratory rate 18, oxygen saturation over 96% on room air. Generally, patient appears relaxed and has abdominal flexion at the level of the xiphoid. Cardiacnormal rate, irregular rhythm. S1 and S2 are present without significant murmurs rubs or gallops. Respiratoryclear to auscultation bilaterally without any crackles or wheezes. Abdomen - epigastric TTP that recreates the pain, no significant distention or pain elsewhere. Capillary refill under 1 second. Of note, her RUE does appear edematous compared to the L - though this is the site of the infusion. Suspected noncardiac chest pain -given that the pain is reproducible on exam and is in the area of the epigastrium, primarily suspect that this is either dyspepsia related or musculoskeletal. She is slumped over in bed, flexed at the xiphoid, which is likely putting pressure on the area. Her EKG did not show any acute changes. We will add troponin to a.m. labs given her ASCVD risk factors and known heart disease, the lower suspicion that this represents true cardiac chest pain. She is on anticoagulation for atrial fibrillation. Will give Pepcid IV one-time now. Dayteam can consider further GI interventions if required.
[2022-05-26] MEDS ORDERED: FAMOTIDINE 20 MG in SYRINGE 3 ML IV ONE (06:30)
[2022-05-26 07:39] LABS: Basophils # (auto) 0.02 K/uL (0-0.2); Basophils % (auto) 0.4 %; Eosinophils # (auto) 0.19 K/uL (0-0.50); Eosinophils % (auto) 3.5 %; Hematocrit (blood only) 40.3 % (34.1-44.9); Hemoglobin 13.4 g/dl (12.0-16.0); Immature Granulocytes # (auto) 0.05 K/uL (0.00-0.02); Immature Granulocytes % (auto) 0.9 %; Lymphocytes # (auto) 1.06 K/uL (1.2-3.4); Lymphocytes % (auto) 19.6 %; Mean Corpuscular Hemoglobin 30.1 pg (25.0-34.0); Mean Corpuscular Hgb Conc 33.3 g/dL (32.0-36.0); Mean Corpuscular Volume 90.6 fL (80.0-100.0); Mean Platelet Volume 10.6 fL (9.4-12.3); Monocytes # (auto) 0.42 K/uL (0.24-0.82); Monocytes % (auto) 7.8 %; Neutrophils # (auto) 3.66 K/uL (1.4-6.5); Neutrophils % (auto) 67.8 %; Platelet Count 180 K/uL (130-400); RDW Coefficient of Variation 13.9 % (11.5-14.5); RDW Standard Deviation 45.2 fL (36.4-46.3); Red Blood Count 4.45 M/uL (3.93-5.22)
[2022-05-26 08:21] LABS: Troponin I High Sensitivity 15.8 pg/ml (0-14)
[2022-05-26 08:24] LABS: BUN Creatinine Ratio 35.9 (10-20); Calcium 8.2 mg/dl (8.5-10.1); Creatinine Clr Calc Pharmacy 137.8 ml/min; Est GFR (African American) 119.1 ml/min; Est GFR (Non-African American) 102.7 ml/min; Potassium 3.5 mmol/L (3.5-5.1)
[2022-05-26] MEDS: INSULIN ASPART PER UNIT SC SCH ×4 (09:25→20:29)
[2022-05-26] MEDS: CETIRIZINE HCL 10 MG TABLET PO PRN (09:26)
[2022-05-26] MEDS: GABAPENTIN 400 MG CAP PO SCH ×2 (09:26→20:33)
[2022-05-26] MEDS: POTASSIUM CHLORIDE 10 MEQ TABCR PO SCH ×2 (09:26→20:32)
[2022-05-26] MEDS: CARBIDOPA/LEVODOPA 25/100MG TAB PO SCH ×4 (09:27→20:34)
[2022-05-26] MEDS: NYSTATIN POWDER 15GM BTL EXT SCH ×2 (09:27→20:35)
[2022-05-26] MEDS: AMANTADINE HCL 100 MG CAPSULE PO SCH ×2 (09:27→20:35)
[2022-05-26] MEDS: BUTT PASTE (ZINC OXIDE 16%) 171 APPLN/57 GM JAR EXT SCH ×2 (09:27→20:35)
[2022-05-26] MEDS ORDERED: bisacodyL 10 MG SUPP PR STA (09:31)
[2022-05-26] MEDS: LANTUS PER UNIT CHARGE SQ SCH ×2 (09:32→20:29)
[2022-05-26] MEDS: LORazepam 0.5 MG TAB PO PRN ×2 (09:33→20:32)
[2022-05-26] MEDS: ACETAMINOPHEN 325 MG TAB PO PRN ×2 (09:33→20:32)
--- NOTE | 2022-05-26 12:07 | Hospitalist Progress Note ---
Date of Service May 26, 2022 Assessment & Plan (1) Rhabdomyolysis: Plan: Mild. Continue IV fluids and serial CK levels. No evidence of renal issues with mildly elevated CK at this point. Much improved, CK 400 today, was >2000 on admission (2) CHF (congestive heart failure): Plan: Chronic diastolic failure. No overt exacerbation at this time. Monitor intake and output. Continue current medical management (3) Parkinsons disease: Plan: Stable with current medical management (4) A-fib: Plan: Chronic. Continue Xarelto therapy. Medication management. (5) Sensorineural hearing loss (SNHL) of both ears: Plan: Aware. Supportive care (6) Anxiety: Plan: Continue current medication. (7) Falls: Plan: Treat underlying acute problems. OT and PT assessments (8) DM (diabetes mellitus), type 2, uncontrolled w/neurologic complication: Plan: ADA diet. Up titration of Lantus as needed. Sliding scale coverage. Glucose under good control (9) Leukocytosis: Plan: Infectious process ruled out. Antibiotics discontinued. This is probably reactive. Serial labs (10) Elevated troponin: Plan: Probably chronic. No evidence of acute [place] (11) Peripheral neuropathy: Plan: The patient states her symptoms have recently worsened. Gabapentin up titrated on May 23. (12) Constipation: Plan: On Miralax Plan patient only wants [facility] Admission and Anticipated Discharge Date Admission Date: May 23, 2022 Subjective patient seen and examined, feels overall better, complains of constipation, had mild chest pain overnight Review of Systems Review of Systems: All systems reviewed are negative, apart from the ones contained in the history. Physical Exam Physical Exam: The patient is awake, alert and oriented 3, well developed and well nourished, normocephalic and atraumatic, lying in bed and in no acute distress. HEENT--PERRL, EOMI, mucous membranes and oropharynx mildly dry Neck--supple. No JVD. No bruits. Thyroid normal, trachea midline, no adenopathy. Heart--normal S1 and S2. No murmurs, rubs or gallops. Lungs--clear bilaterally, no respiratory distress, no accessory muscle use. Abdomen--normal bowel sounds and soft. Mild epigastric and left sided abdominal pain Extremities--no cyanosis or clubbing. No edema. Dermatologic--normal skin turgor, normal color, no abnormal lymph nodes, no rash. Neurologic--cranial nerves II through XII grossly intact. Rheumatologic--normal range of motion. Psychiatric--normal affect. Results & Data Results & Data ([facility]) Vital Signs (Past 12 Hours) Vital Signs Temp Pulse Pulse Pulse Resp BP BP 05/26/22 11:10 98.1 F 67 17 165/83 H 05/26/22 10:22 65 05/26/22 08:29 98.4 F 69 18 146/74 H 05/26/22 06:06 97.5 F L 67 18 131/73 05/26/22 04:28 98.2 F 75 16 125/74 Pulse Ox O2 Del Method 05/26/22 11:10 98 Room Air 05/26/22 10:22 05/26/22 08:29 95 Room Air 05/26/22 06:06 96 Room Air 05/26/22 04:28 95 Room Air PG Care Time/CCT Total # of Minutes Spent Total Time Spent with Patient: Total time spent is greater than 50% in coordination of care (as documented) at patient's floor/unit and/or counseling patient: Coding Level of Care Code 04266 Subseq Hosp Care Lvl 2 Diagnoses Rhabdomyolysis M62.82 Rhabdomyolysis type: non-traumatic CHF (congestive heart failure) I50.9 Parkinsons disease G20 A-fib I48.91 Sensorineural hearing loss (SNHL) of both ears H90.3 Anxiety F41.9 Falls W19.XXXA DM (diabetes mellitus), type 2, uncontrolled w/neurologic complication E11.49; E11.65 Leukocytosis D72.829 Elevated troponin R77.8 Peripheral neuropathy G62.9 Constipation K59.00 Time Spent (min) 35 (1) Rhabdomyolysis Rhabdomyolysis type: non-traumatic Qualified Code(s): M62.82 - Rhabdomyolysis
--- NOTE | 2022-05-26 16:40 | Electrocardiogram Report ---
Test Reason : Blood Pressure : / mmHG Vent. Rate : 062 BPM Atrial Rate : 277 BPM P-R Int : 000 ms QRS Dur : 086 ms QT Int : 404 ms P-R-T Axes : 000 -46 044 degrees QTc Int : 410 ms Atrial fibrillation Low voltage QRS Left anterior fascicular block Abnormal ECG When compared with ECG of 22-MAY-2022 20:02, Vent. rate has decreased BY 42 BPM Nonspecific T wave abnormality, improved in Inferior leads Nonspecific T wave abnormality no longer evident in Lateral leads QT has shortened Confirmed by Aleksandr Carrera ([id number]) on 05/26/2022 4:40:10 PM Referred By: REFERRED SELF Confirmed By:Aleksandr Carrera
[2022-05-26] MEDS: RIVAROXABAN 20 MG TAB PO SCH (17:17)
[2022-05-26] MEDS: ASPIRIN 81 MG ECTAB PO SCH (20:34)
[2022-05-27 06:59] LABS: Hemoglobin 12.8 g/dl (12.0-16.0); Mean Corpuscular Hemoglobin 31.1 pg (25.0-34.0); Mean Corpuscular Hgb Conc 33.7 g/dL (32.0-36.0); Mean Corpuscular Volume 92.2 fL (80.0-100.0); Mean Platelet Volume 10.9 fL (9.4-12.3); Platelet Count 148 K/uL (130-400); RDW Coefficient of Variation 13.9 % (11.5-14.5); RDW Standard Deviation 46.5 fL (36.4-46.3); Red Blood Count 4.12 M/uL (3.93-5.22)
[2022-05-27 07:31] LABS: BUN Creatinine Ratio 40.5 (10-20); Calcium 8.1 mg/dl (8.5-10.1); Creatinine Clr Calc Pharmacy 146.9 ml/min; Est GFR (African American) 121.2 ml/min; Est GFR (Non-African American) 104.5 ml/min; Potassium 3.6 mmol/L (3.5-5.1)
[2022-05-27] MEDS: POTASSIUM CHLORIDE 10 MEQ TABCR PO SCH ×2 (08:55→21:57)
[2022-05-27] MEDS: GABAPENTIN 400 MG CAP PO SCH ×2 (08:55→21:56)
[2022-05-27] MEDS: CARBIDOPA/LEVODOPA 25/100MG TAB PO SCH ×4 (08:56→21:56)
[2022-05-27] MEDS: AMANTADINE HCL 100 MG CAPSULE PO SCH ×2 (08:56→21:55)
[2022-05-27] MEDS: CETIRIZINE HCL 10 MG TABLET PO PRN (08:56)
[2022-05-27] MEDS: NYSTATIN POWDER 15GM BTL EXT SCH ×2 (08:56→21:56)
[2022-05-27] MEDS: BUTT PASTE (ZINC OXIDE 16%) 171 APPLN/57 GM JAR EXT SCH ×2 (08:56→21:57)
[2022-05-27] MEDS: LACTATED RINGER'S 1,000 ML IV SCH ×2 (08:57→21:54)
[2022-05-27] MEDS: INSULIN ASPART PER UNIT SC SCH ×4 (08:57→21:58)
[2022-05-27] MEDS: LANTUS PER UNIT CHARGE SQ SCH ×2 (08:58→21:58)
[2022-05-27] MEDS: LORazepam 0.5 MG TAB PO PRN ×2 (10:24→21:57)
[2022-05-27] MEDS: ACETAMINOPHEN 325 MG TAB PO PRN ×2 (10:24→21:58)
--- NOTE | 2022-05-27 12:03 | Hospitalist Progress Note ---
Date of Service May 27, 2022 Assessment & Plan (1) Rhabdomyolysis: Plan: Mild. Continue IV fluids and serial CK levels. No evidence of renal issues with mildly elevated CK at this point. Much improved, CK has continuously trended down (2) CHF (congestive heart failure): Plan: Chronic diastolic failure. No overt exacerbation at this time. Monitor intake and output. Continue current medical management (3) Parkinsons disease: Plan: Stable with current medical management (4) A-fib: Plan: Chronic. Continue Xarelto therapy. Medication management. (5) Sensorineural hearing loss (SNHL) of both ears: Plan: Aware. Supportive care (6) Anxiety: Plan: Continue current medication. stable (7) Falls: Plan: Treat underlying acute problems. OT and PT assessments (8) DM (diabetes mellitus), type 2, uncontrolled w/neurologic complication: Plan: ADA diet. Up titration of Lantus as needed. Sliding scale coverage. Glucose under good control (9) Leukocytosis: Plan: Infectious process ruled out. Antibiotics discontinued. This is probably reactive. (10) Elevated troponin: Plan: Probably chronic. No evidence of acute [place] (11) Peripheral neuropathy: Plan: The patient states her symptoms have recently worsened. Gabapentin up titrated on May 23. (12) Constipation: Plan: On Miralax, has not moved bowel yet Plan patient only wants [facility] for SNF Admission and Anticipated Discharge Date Admission Date: May 23, 2022 Subjective patient seen and examined, feels overall better, still complains of constipation, but feels she is about to move her bowels Review of Systems Review of Systems: All systems reviewed are negative, apart from the ones contained in the history. Physical Exam Physical Exam: The patient is awake, alert and oriented 3, well developed and well nourished, normocephalic and atraumatic, lying in bed and in no acute distress. HEENT--PERRL, EOMI, mucous membranes and oropharynx mildly dry Neck--supple. No JVD. No bruits. Thyroid normal, trachea midline, no adenopathy. Heart--normal S1 and S2. No murmurs, rubs or gallops. Lungs--clear bilaterally, no respiratory distress, no accessory muscle use. Abdomen--normal bowel sounds and soft. Mild epigastric and left sided abdominal pain Extremities--no cyanosis or clubbing. No edema. Dermatologic--normal skin turgor, normal color, no abnormal lymph nodes, no rash. Neurologic--cranial nerves II through XII grossly intact. Rheumatologic--normal range of motion. Psychiatric--normal affect. Results & Data Results & Data ([facility]) Vital Signs (Past 12 Hours) Vital Signs Temp Pulse Pulse Resp BP BP Pulse Ox 05/27/22 11:24 97.9 F 72 20 159/65 H 95 05/27/22 07:56 97.3 F L 73 20 144/82 H 99 05/27/22 07:39 57 L 05/27/22 04:00 97.7 F 59 L 18 131/71 96 O2 Del Method 05/27/22 11:24 Room Air 05/27/22 07:56 Room Air 05/27/22 07:39 05/27/22 04:00 Room Air PG Care Time/CCT Total # of Minutes Spent Total Time Spent with Patient: Total time spent is greater than 50% in coordination of care (as documented) at patient's floor/unit and/or counseling patient: Coding Level of Care Code 73469 Subseq Hosp Care Lvl 2 Diagnoses Rhabdomyolysis M62.82 Rhabdomyolysis type: non-traumatic CHF (congestive heart failure) I50.9 Parkinsons disease G20 A-fib I48.91 Sensorineural hearing loss (SNHL) of both ears H90.3 Anxiety F41.9 Falls W19.XXXA DM (diabetes mellitus), type 2, uncontrolled w/neurologic complication E11.49; E11.65 Leukocytosis D72.829 Elevated troponin R77.8 Peripheral neuropathy G62.9 Constipation K59.00 Time Spent (min) 35 (1) Rhabdomyolysis Rhabdomyolysis type: non-traumatic Qualified Code(s): M62.82 - Rhabdomyolysis
[2022-05-27] MEDS: POLYETHYLENE (MIRALAX) 17 GM PACK PO PRN (14:46)
[2022-05-27] MEDS: RIVAROXABAN 20 MG TAB PO SCH (17:42)
[2022-05-27] MEDS: ASPIRIN 81 MG ECTAB PO SCH (21:55)
[2022-05-28] MEDS ORDERED: GLYCERIN ADULT 12 SUPP/BOX SUPP PR ONE (06:15)
[2022-05-28] MEDS: LORazepam 0.5 MG TAB PO PRN ×2 (07:33→21:02)
[2022-05-28] MEDS: POTASSIUM CHLORIDE 10 MEQ TABCR PO SCH ×2 (07:34→21:03)
[2022-05-28] MEDS: CETIRIZINE HCL 10 MG TABLET PO PRN (07:35)
[2022-05-28] MEDS: GABAPENTIN 400 MG CAP PO SCH ×2 (07:36→21:03)
[2022-05-28] MEDS: CARBIDOPA/LEVODOPA 25/100MG TAB PO SCH ×4 (07:39→21:02)
[2022-05-28] MEDS: NYSTATIN POWDER 15GM BTL EXT SCH ×2 (07:40→21:04)
[2022-05-28] MEDS: AMANTADINE HCL 100 MG CAPSULE PO SCH ×2 (07:40→21:02)
[2022-05-28] MEDS: BUTT PASTE (ZINC OXIDE 16%) 171 APPLN/57 GM JAR EXT SCH ×2 (07:41→21:04)
[2022-05-28 08:15] LABS: Hematocrit (blood only) 37.9 % (34.1-44.9); Hemoglobin 12.5 g/dl (12.0-16.0); Mean Corpuscular Hemoglobin 30.9 pg (25.0-34.0); Mean Corpuscular Volume 93.6 fL (80.0-100.0); Mean Platelet Volume 10.7 fL (9.4-12.3); Platelet Count 176 K/uL (130-400); RDW Coefficient of Variation 14.2 % (11.5-14.5); RDW Standard Deviation 47.8 fL (36.4-46.3); Red Blood Count 4.05 M/uL (3.93-5.22); White Blood Count 4.33 K/ul (4.8-10.8)
[2022-05-28 08:46] LABS: Anion Gap 1 (3-11); BUN Creatinine Ratio 26.3 (10-20); Blood Urea Nitrogen 15 mg/dl (6-23); Calcium 8.2 mg/dl (8.5-10.1); Carbon Dioxide 34 mmol/L (21-32); Chloride 104 mmol/L (98-107); Creatinine Clr Calc Pharmacy 96.2 ml/min; Est GFR (African American) 105.1 ml/min; Est GFR (Non-African American) 90.7 ml/min; Glucose 129 mg/dl (70-99(Fasting)); Sodium 139 mmol/L (136-145)
[2022-05-28] MEDS: INSULIN ASPART PER UNIT SC SCH ×4 (09:00→21:03)
[2022-05-28] MEDS: LACTATED RINGER'S 1,000 ML IV SCH ×2 (09:01→21:01)
[2022-05-28] MEDS: LANTUS PER UNIT CHARGE SQ SCH ×2 (09:01→21:04)
--- NOTE | 2022-05-28 13:52 | Hospitalist Progress Note ---
Date of Service May 28, 2022 Assessment & Plan (1) Rhabdomyolysis: Plan: Admitted on account of elevated CPK following a fall Initial CPK was >2000 Rhabdo is now resolved following IV Fluids She is awaiting placement (2) CHF (congestive heart failure): Plan: Chronic diastolic failure. No overt exacerbation at this time. Monitor intake and output. Continue current medical management (3) Parkinsons disease: Plan: Stable with current medical management (4) Constipation: Plan: On Miralax, has not moved bowel yet she is refusing enema (5) A-fib: Plan: Chronic. Continue Xarelto therapy. Medication management. (6) Sensorineural hearing loss (SNHL) of both ears: Plan: Aware. Supportive care (7) Anxiety: Plan: Continue current medication. stable (8) Falls: Plan: Treat underlying acute problems. OT and PT assessments (9) DM (diabetes mellitus), type 2, uncontrolled w/neurologic complication: Plan: ADA diet. Up titration of Lantus as needed. Sliding scale coverage. Glucose under good control (10) Leukocytosis: Plan: Infectious process ruled out. Antibiotics discontinued. This is probably reactive. (11) Elevated troponin: Plan: Probably chronic. No evidence of acute [place] (12) Peripheral neuropathy: Plan: The patient states her symptoms have recently worsened. Gabapentin up titrated on May 23. Plan patient only wants [facility] for SNF Admission and Anticipated Discharge Date Admission Date: May 23, 2022 Subjective patient seen and examined, feels overall better, still complains of constipation, refuses enema Review of Systems Review of Systems: All systems reviewed are negative, apart from the ones contained in the history. Physical Exam Physical Exam: The patient is awake, alert and oriented 3, well developed and well nourished, normocephalic and atraumatic, lying in bed and in no acute distress. HEENT--PERRL, EOMI, mucous membranes and oropharynx mildly dry Neck--supple. No JVD. No bruits. Thyroid normal, trachea midline, no adenopathy. Heart--normal S1 and S2. No murmurs, rubs or gallops. Lungs--clear bilaterally, no respiratory distress, no accessory muscle use. Abdomen--normal bowel sounds and soft. Mild epigastric and left sided abdominal pain Extremities--no cyanosis or clubbing. No edema. Dermatologic--normal skin turgor, normal color, no abnormal lymph nodes, no rash. Neurologic--cranial nerves II through XII grossly intact. Rheumatologic--normal range of motion. Psychiatric--normal affect. Results & Data Results & Data ([facility]) Vital Signs (Past 12 Hours) Vital Signs Temp Pulse Resp BP Pulse Ox O2 Del Method 05/28/22 07:45 Room Air 05/28/22 11:13 98.2 F 63 18 134/81 97 Room Air 05/28/22 07:41 98.1 F 59 L 18 127/71 97 Room Air 05/28/22 03:00 97.5 F L 82 20 136/68 97 Room Air PG Care Time/CCT Total # of Minutes Spent Total Time Spent with Patient: Total time spent is greater than 50% in coordination of care (as documented) at patient's floor/unit and/or counseling patient: Coding Level of Care Code 18007 Subseq Hosp Care Lvl 2 Diagnoses Rhabdomyolysis M62.82 Rhabdomyolysis type: non-traumatic CHF (congestive heart failure) I50.9 Parkinsons disease G20 Constipation K59.00 A-fib I48.91 Sensorineural hearing loss (SNHL) of both ears H90.3 Anxiety F41.9 Falls W19.XXXA DM (diabetes mellitus), type 2, uncontrolled w/neurologic complication E11.49; E11.65 Leukocytosis D72.829 Elevated troponin R77.8 Peripheral neuropathy G62.9 Time Spent (min) 35 (1) Rhabdomyolysis Rhabdomyolysis type: non-traumatic Qualified Code(s): M62.82 - Rhabdomyolysis
[2022-05-28] MEDS: RIVAROXABAN 20 MG TAB PO SCH (17:23)
[2022-05-28] MEDS: ASPIRIN 81 MG ECTAB PO SCH (21:03)
[2022-05-28] MEDS: ACETAMINOPHEN 325 MG TAB PO PRN (22:32)
[2022-05-29] MEDS: POTASSIUM CHLORIDE 10 MEQ TABCR PO SCH ×2 (07:56→20:54)
[2022-05-29] MEDS: CARBIDOPA/LEVODOPA 25/100MG TAB PO SCH ×4 (07:59→20:51)
[2022-05-29] MEDS: AMANTADINE HCL 100 MG CAPSULE PO SCH ×2 (07:59→20:52)
[2022-05-29] MEDS: GABAPENTIN 400 MG CAP PO SCH ×2 (07:59→20:52)
[2022-05-29] MEDS: CETIRIZINE HCL 10 MG TABLET PO PRN (07:59)
[2022-05-29] MEDS: NYSTATIN POWDER 15GM BTL EXT SCH ×2 (08:00→20:54)
[2022-05-29] MEDS: BUTT PASTE (ZINC OXIDE 16%) 171 APPLN/57 GM JAR EXT SCH ×2 (08:00→20:55)
[2022-05-29] MEDS: INSULIN ASPART PER UNIT SC SCH ×4 (08:38→20:44)
[2022-05-29] MEDS: LACTATED RINGER'S 1,000 ML IV SCH ×2 (09:39→22:11)
[2022-05-29] MEDS: LANTUS PER UNIT CHARGE SQ SCH ×2 (09:50→20:54)
--- NOTE | 2022-05-29 13:34 | Hospitalist Progress Note ---
Date of Service May 29, 2022 Assessment & Plan (1) Rhabdomyolysis: Plan: Admitted on account of elevated CPK following a fall Initial CPK was >2000 Rhabdo is now resolved following IV Fluids She is awaiting placement (2) CHF (congestive heart failure): Plan: Chronic diastolic failure. No overt exacerbation at this time. Monitor intake and output. Continue current medical management (3) Parkinsons disease: Plan: Stable with current medical management (4) Constipation: Plan: On Miralax, has not moved bowel yet Now agreeable to enema (5) A-fib: Plan: Chronic. Continue Xarelto therapy. Medication management. (6) Sensorineural hearing loss (SNHL) of both ears: Plan: Aware. Supportive care (7) Anxiety: Plan: Continue current medication. stable (8) Falls: Plan: Treat underlying acute problems. OT and PT assessments (9) DM (diabetes mellitus), type 2, uncontrolled w/neurologic complication: Plan: ADA diet. Up titration of Lantus as needed. Sliding scale coverage. Glucose under good control (10) Leukocytosis: Plan: Infectious process ruled out. Antibiotics discontinued. This is probably reactive. Now resolved (11) Elevated troponin: Plan: Probably chronic. No evidence of acute [place] (12) Peripheral neuropathy: Plan: The patient states her symptoms have recently worsened. Gabapentin up titrated on May 23. Plan patient only wants [facility] for SNF Admission and Anticipated Discharge Date Admission Date: May 23, 2022 Subjective patient seen and examined, feels overall better, still complains of constipation, now agreeable to enema Review of Systems Review of Systems: All systems reviewed are negative, apart from the ones contained in the history. Physical Exam Physical Exam: The patient is awake, alert and oriented 3, well developed and well nourished, normocephalic and atraumatic, lying in bed and in no acute distress. HEENT--PERRL, EOMI, mucous membranes and oropharynx mildly dry Neck--supple. No JVD. No bruits. Thyroid normal, trachea midline, no adenopathy. Heart--normal S1 and S2. No murmurs, rubs or gallops. Lungs--clear bilaterally, no respiratory distress, no accessory muscle use. Abdomen--normal bowel sounds and soft. Mild epigastric and left sided abdominal pain Extremities--no cyanosis or clubbing. No edema. Dermatologic--normal skin turgor, normal color, no abnormal lymph nodes, no rash. Neurologic--cranial nerves II through XII grossly intact. Rheumatologic--normal range of motion. Psychiatric--normal affect. Results & Data Results & Data ([facility]) Vital Signs (Past 12 Hours) Vital Signs Temp Pulse Pulse Resp BP Pulse Ox O2 Del Method 05/29/22 11:19 98.1 F 83 19 154/75 H 98 Room Air 05/29/22 07:46 98.1 F 54 L 19 132/76 96 Room Air 05/29/22 07:00 55 L 05/29/22 04:00 97.7 F 64 18 119/74 100 Room Air PG Care Time/CCT Total # of Minutes Spent Total Time Spent with Patient: Total time spent is greater than 50% in coordination of care (as documented) at patient's floor/unit and/or counseling patient: Coding Level of Care Code 17998 Subseq Hosp Care Lvl 2 Diagnoses Rhabdomyolysis M62.82 Rhabdomyolysis type: non-traumatic CHF (congestive heart failure) I50.9 Parkinsons disease G20 Constipation K59.00 A-fib I48.91 Sensorineural hearing loss (SNHL) of both ears H90.3 Anxiety F41.9 Falls W19.XXXA DM (diabetes mellitus), type 2, uncontrolled w/neurologic complication E11.49; E11.65 Leukocytosis D72.829 Elevated troponin R77.8 Peripheral neuropathy G62.9 Time Spent (min) 35 (1) Rhabdomyolysis Rhabdomyolysis type: non-traumatic Qualified Code(s): M62.82 - Rhabdomyolysis
[2022-05-29] MEDS: ACETAMINOPHEN 325 MG TAB PO PRN (13:46)
[2022-05-29] MEDS: RIVAROXABAN 20 MG TAB PO SCH (16:53)
[2022-05-29] MEDS: ASPIRIN 81 MG ECTAB PO SCH (20:52)
[2022-05-29] MEDS: LORazepam 0.5 MG TAB PO PRN (21:05)
[2022-05-30 06:02] LABS: Hematocrit (blood only) 38.4 % (34.1-44.9); Hemoglobin 12.8 g/dl (12.0-16.0); Mean Corpuscular Hemoglobin 30.6 pg (25.0-34.0); Mean Corpuscular Hgb Conc 33.3 g/dL (32.0-36.0); Mean Corpuscular Volume 91.9 fL (80.0-100.0); Mean Platelet Volume 10.8 fL (9.4-12.3); Platelet Count 162 K/uL (130-400); RDW Coefficient of Variation 14.2 % (11.5-14.5); RDW Standard Deviation 47.8 fL (36.4-46.3); Red Blood Count 4.18 M/uL (3.93-5.22); White Blood Count 4.47 K/ul (4.8-10.8)
[2022-05-30 06:22] LABS: BUN Creatinine Ratio 22.2 (10-20); Calcium 8.3 mg/dl (8.5-10.1); Creatinine Clr Calc Pharmacy 103.8 ml/min; Est GFR (Non-African American) 92.3 ml/min; Potassium 4.5 mmol/L (3.5-5.1)
[2022-05-30] MEDS: LORazepam 0.5 MG TAB PO PRN ×2 (07:05→22:40)
[2022-05-30] MEDS: ACETAMINOPHEN 325 MG TAB PO PRN (07:07)
[2022-05-30] MEDS: POLYETHYLENE (MIRALAX) 17 GM PACK PO PRN (08:33)
[2022-05-30] MEDS: POTASSIUM CHLORIDE 10 MEQ TABCR PO SCH ×2 (08:34→20:46)
[2022-05-30] MEDS: GABAPENTIN 400 MG CAP PO SCH ×2 (08:34→20:47)
[2022-05-30] MEDS: CETIRIZINE HCL 10 MG TABLET PO PRN (08:34)
[2022-05-30] MEDS: INSULIN ASPART PER UNIT SC SCH ×4 (08:34→20:48)
[2022-05-30] MEDS: BUTT PASTE (ZINC OXIDE 16%) 171 APPLN/57 GM JAR EXT SCH ×2 (08:35→20:48)
[2022-05-30] MEDS: NYSTATIN POWDER 15GM BTL EXT SCH ×2 (08:35→20:48)
[2022-05-30] MEDS: AMANTADINE HCL 100 MG CAPSULE PO SCH ×2 (08:35→20:47)
[2022-05-30] MEDS: CARBIDOPA/LEVODOPA 25/100MG TAB PO SCH ×4 (08:35→20:47)
[2022-05-30] MEDS: LANTUS PER UNIT CHARGE SQ SCH ×2 (08:38→20:52)
[2022-05-30] MEDS ORDERED: LAVAGE SOLUTION 4000ML PO SCH ×2 (11:00→11:30)
[2022-05-30] MEDS: LACTATED RINGER'S 1,000 ML IV SCH (11:28)
--- NOTE | 2022-05-30 13:10 | Hospitalist Progress Note ---
Date of Service May 30, 2022 Assessment & Plan (1) Rhabdomyolysis: Plan: Admitted on account of elevated CPK following a fall Initial CPK was >2000 Rhabdo is now resolved following IV Fluids She is awaiting placement (2) Constipation: Plan: On Miralax, has not moved bowel yet, even after enema Will give her bowel prep with Golytely (3) CHF (congestive heart failure): Plan: Chronic diastolic failure. No overt exacerbation at this time. Monitor intake and output. Continue current medical management (4) Parkinsons disease: Plan: Stable with current medical management (5) A-fib: Plan: Chronic. Continue Xarelto therapy. Medication management. (6) Sensorineural hearing loss (SNHL) of both ears: Plan: Aware. Supportive care (7) Anxiety: Plan: Continue current medication. stable (8) Falls: Plan: Treat underlying acute problems. OT and PT assessments (9) DM (diabetes mellitus), type 2, uncontrolled w/neurologic complication: Plan: ADA diet. Up titration of Lantus as needed. Sliding scale coverage. Glucose under good control (10) Leukocytosis: Plan: Infectious process ruled out. Antibiotics discontinued. This is probably reactive. Now resolved (11) Elevated troponin: Plan: Probably chronic. No evidence of acute [place] (12) Peripheral neuropathy: Plan: The patient states her symptoms have recently worsened. Gabapentin up titrated on May 23. Plan patient only wants [facility] for SNF Admission and Anticipated Discharge Date Admission Date: May 23, 2022 Subjective patient seen and examined, feels overall better, still complains of constipation, even after enema Review of Systems Review of Systems: All systems reviewed are negative, apart from the ones contained in the history. Physical Exam Physical Exam: The patient is awake, alert and oriented 3, well developed and well nourished, normocephalic and atraumatic, lying in bed and in no acute distress. HEENT--PERRL, EOMI, mucous membranes and oropharynx mildly dry Neck--supple. No JVD. No bruits. Thyroid normal, trachea midline, no adenopathy. Heart--normal S1 and S2. No murmurs, rubs or gallops. Lungs--clear bilaterally, no respiratory distress, no accessory muscle use. Abdomen--normal bowel sounds and soft. Mild epigastric and left sided abdominal pain Extremities--no cyanosis or clubbing. No edema. Dermatologic--normal skin turgor, normal color, no abnormal lymph nodes, no rash. Neurologic--cranial nerves II through XII grossly intact. Rheumatologic--normal range of motion. Psychiatric--normal affect. Results & Data Results & Data ([facility]) Vital Signs (Past 12 Hours) Vital Signs Temp Pulse Pulse Resp BP Pulse Ox O2 Del Method 05/30/22 11:11 98.6 F 63 19 134/81 99 Room Air 05/30/22 08:00 67 05/30/22 07:34 98.2 F 67 19 164/88 H 98 Room Air 05/30/22 07:05 Room Air 05/30/22 03:08 97.5 F L 68 18 147/76 H 96 Room Air PG Care Time/CCT Total # of Minutes Spent Total Time Spent with Patient: Total time spent is greater than 50% in coordination of care (as documented) at patient's floor/unit and/or counseling patient: Coding Level of Care Code 11730 Subseq Hosp Care Lvl 2 Diagnoses Rhabdomyolysis M62.82 Rhabdomyolysis type: non-traumatic Constipation K59.00 CHF (congestive heart failure) I50.9 Parkinsons disease G20 A-fib I48.91 Sensorineural hearing loss (SNHL) of both ears H90.3 Anxiety F41.9 Falls W19.XXXA DM (diabetes mellitus), type 2, uncontrolled w/neurologic complication E11.49; E11.65 Leukocytosis D72.829 Elevated troponin R77.8 Peripheral neuropathy G62.9 Time Spent (min) 35 (1) Rhabdomyolysis Rhabdomyolysis type: non-traumatic Qualified Code(s): M62.82 - Rhabdomyolysis
[2022-05-30] MEDS: RIVAROXABAN 20 MG TAB PO SCH (17:25)
[2022-05-30] MEDS: ASPIRIN 81 MG ECTAB PO SCH (20:47)
[2022-05-31] MEDS: ACETAMINOPHEN 325 MG TAB PO PRN (02:52)
[2022-05-31] MEDS: BUTT PASTE (ZINC OXIDE 16%) 171 APPLN/57 GM JAR EXT SCH ×2 (08:38→20:06)
[2022-05-31] MEDS: GABAPENTIN 400 MG CAP PO SCH ×2 (08:38→20:04)
[2022-05-31] MEDS: POTASSIUM CHLORIDE 10 MEQ TABCR PO SCH ×2 (08:38→20:05)
[2022-05-31] MEDS: NYSTATIN POWDER 15GM BTL EXT SCH ×2 (08:38→20:05)
[2022-05-31] MEDS: AMANTADINE HCL 100 MG CAPSULE PO SCH ×2 (08:38→20:03)
[2022-05-31] MEDS: CARBIDOPA/LEVODOPA 25/100MG TAB PO SCH ×4 (08:38→20:04)
[2022-05-31] MEDS: INSULIN ASPART PER UNIT SC SCH ×4 (08:39→20:05)
[2022-05-31] MEDS: LANTUS PER UNIT CHARGE SQ SCH ×2 (08:40→20:05)
--- NOTE | 2022-05-31 11:52 | Hospitalist Progress Note ---
Date of Service May 31, 2022 Assessment & Plan (1) Rhabdomyolysis: Plan: Admitted on account of elevated CPK following a fall Initial CPK was >2000 Rhabdo is now resolved following IV Fluids She is awaiting placement (2) Constipation: Plan: Now resolved following Golytely She failed multiple attempts with miralax, dulcolax, senna, tap water enema (3) CHF (congestive heart failure): Plan: Chronic diastolic failure. No overt exacerbation at this time. Monitor intake and output. Continue current medical management (4) Parkinsons disease: Plan: Stable with current medical management (5) A-fib: Plan: Chronic. Continue Xarelto therapy. Medication management. (6) Sensorineural hearing loss (SNHL) of both ears: Plan: Aware. Supportive care (7) Anxiety: Plan: Continue current medication. stable (8) Falls: Plan: Treat underlying acute problems. OT and PT assessments (9) DM (diabetes mellitus), type 2, uncontrolled w/neurologic complication: Plan: ADA diet. Up titration of Lantus as needed. Sliding scale coverage. Glucose under good control (10) Leukocytosis: Plan: Infectious process ruled out. Antibiotics discontinued. This is probably reactive. Now resolved (11) Elevated troponin: Plan: Probably chronic. No evidence of acute [place] (12) Peripheral neuropathy: Plan: The patient states her symptoms have recently worsened. Gabapentin up titrated on May 23. Plan patient only wants [facility] for SNF Admission and Anticipated Discharge Date Admission Date: May 23, 2022 Subjective patient seen and examined, feels overall better, had bowel movements Review of Systems Review of Systems: All systems reviewed are negative, apart from the ones contained in the history. Physical Exam Physical Exam: The patient is awake, alert and oriented 3, well developed and well nourished, normocephalic and atraumatic, lying in bed and in no acute distress. HEENT--PERRL, EOMI, mucous membranes and oropharynx mildly dry Neck--supple. No JVD. No bruits. Thyroid normal, trachea midline, no adenopathy. Heart--normal S1 and S2. No murmurs, rubs or gallops. Lungs--clear bilaterally, no respiratory distress, no accessory muscle use. Abdomen--normal bowel sounds and soft. Mild epigastric and left sided abdominal pain Extremities--no cyanosis or clubbing. No edema. Dermatologic--normal skin turgor, normal color, no abnormal lymph nodes, no rash. Neurologic--cranial nerves II through XII grossly intact. Rheumatologic--normal range of motion. Psychiatric--normal affect. Results & Data Results & Data ([facility]) Vital Signs (Past 12 Hours) Vital Signs Temp Pulse Pulse Resp BP Pulse Ox O2 Del Method 05/31/22 11:09 98.6 F 70 16 125/75 100 Room Air 05/31/22 08:25 61 05/31/22 07:48 98.4 F 62 16 127/76 97 Room Air 05/31/22 06:38 98.2 F 70 16 115/67 94 Room Air 05/31/22 03:29 97.7 F 79 16 146/80 H 98 Room Air PG Care Time/CCT Total # of Minutes Spent Total Time Spent with Patient: Total time spent is greater than 50% in coordination of care (as documented) at patient's floor/unit and/or counseling patient: Coding Level of Care Code 92176 Subseq Hosp Care Lvl 2 Diagnoses Rhabdomyolysis M62.82 Rhabdomyolysis type: non-traumatic Constipation K59.00 CHF (congestive heart failure) I50.9 Parkinsons disease G20 A-fib I48.91 Sensorineural hearing loss (SNHL) of both ears H90.3 Anxiety F41.9 Falls W19.XXXA DM (diabetes mellitus), type 2, uncontrolled w/neurologic complication E11.49; E11.65 Leukocytosis D72.829 Elevated troponin R77.8 Peripheral neuropathy G62.9 Time Spent (min) 35 (1) Rhabdomyolysis Rhabdomyolysis type: non-traumatic Qualified Code(s): M62.82 - Rhabdomyolysis
[2022-05-31] MEDS: RIVAROXABAN 20 MG TAB PO SCH (16:42)
[2022-05-31] MEDS: ASPIRIN 81 MG ECTAB PO SCH (20:03)
[2022-05-31] MEDS: LORazepam 0.5 MG TAB PO PRN (23:46)
[2022-06-01] MEDS: ACETAMINOPHEN 325 MG TAB PO PRN (04:40)
[2022-06-01] MEDS: LORazepam 0.5 MG TAB PO PRN (07:53)
[2022-06-01] MEDS: INSULIN ASPART PER UNIT SC SCH ×4 (07:56→20:34)
[2022-06-01] MEDS: LANTUS PER UNIT CHARGE SQ SCH ×2 (07:56→20:34)
[2022-06-01] MEDS: BUTT PASTE (ZINC OXIDE 16%) 171 APPLN/57 GM JAR EXT SCH ×2 (07:57→20:24)
[2022-06-01] MEDS: NYSTATIN POWDER 15GM BTL EXT SCH ×2 (07:57→20:23)
[2022-06-01] MEDS: CARBIDOPA/LEVODOPA 25/100MG TAB PO SCH ×4 (08:00→20:22)
[2022-06-01] MEDS: POTASSIUM CHLORIDE 10 MEQ TABCR PO SCH ×2 (08:00→20:35)
[2022-06-01] MEDS: GABAPENTIN 400 MG CAP PO SCH ×2 (08:00→20:23)
[2022-06-01] MEDS: AMANTADINE HCL 100 MG CAPSULE PO SCH ×2 (08:00→20:23)
[2022-06-01 08:10] LABS: Hematocrit (blood only) 39.3 % (34.1-44.9); Mean Corpuscular Hemoglobin 30.4 pg (25.0-34.0); Mean Corpuscular Hgb Conc 33.1 g/dL (32.0-36.0); Mean Corpuscular Volume 91.8 fL (80.0-100.0); Mean Platelet Volume 10.7 fL (9.4-12.3); Platelet Count 167 K/uL (130-400); RDW Coefficient of Variation 14.5 % (11.5-14.5); RDW Standard Deviation 48.3 fL (36.4-46.3); Red Blood Count 4.28 M/uL (3.93-5.22); White Blood Count 6.01 K/ul (4.8-10.8)
[2022-06-01 08:35] LABS: BUN Creatinine Ratio 18.2 (10-20); Calcium 8.6 mg/dl (8.5-10.1); Creatinine Clr Calc Pharmacy 82.9 ml/min; Est GFR (African American) 100.2 ml/min; Est GFR (Non-African American) 86.4 ml/min; Potassium 4.6 mmol/L (3.5-5.1)
[2022-06-01] MEDS: RIVAROXABAN 20 MG TAB PO SCH (17:00)
--- NOTE | 2022-06-01 18:02 | Hospitalist Progress Note ---
Date of Service June 01, 2022 Assessment & Plan (1) Rhabdomyolysis: Plan: Admitted on account of elevated CPK following a fall. Initial CPK was >2000. - Rhabdo is now resolved following IV fluids - She is awaiting placement (2) Constipation: Plan: She failed multiple attempts with Miralax, Dulcolax, senna, tap water enema. Now resolved following Golytely. - Monitor BMs - One today. (3) DM (diabetes mellitus), type 2, uncontrolled w/neurologic complication: Plan: A1c was 8.0% on 05/22. - ADA diet - Long-acting insulin 15 mg SQ BID - Sliding scale coverage -> Blood sugars 112 - 180 in last 24 hours. (4) CHF (congestive heart failure): Plan: Chronic diastolic failure. - No overt exacerbation at this time. Appears euvolemic. - Monitor intake and output. - Monitor volume status; presently not on a diuretic. (5) Parkinsons disease: Plan: Stable with current medical management. - Continue home Sinemet & amantadine (6) A-fib: Plan: Chronic. - Continue Xarelto - No rate control needed (7) Sensorineural hearing loss (SNHL) of both ears: Plan: Aware. - Supportive care (8) Anxiety: Plan: Stable. - Continue lorazepam BID PRN (9) Falls: Plan: Treat underlying acute problems. - OT and PT assessments -> Plan for [facility] (10) Leukocytosis: Plan: Infectious process ruled out. Antibiotics discontinued. This is probably reactive. - Resolved (11) Peripheral neuropathy: Plan: The patient states her symptoms have recently worsened. Gabapentin up titrated on 05/23. - Stable. Plan VTE ppx: Xarelto for afib Admission and Anticipated Discharge Date Admission Date: May 23, 2022 Subjective Doing well today. In good spirits. Reports no fevers/chills, chest pain, shortness of breath, abdominal pain, nausea, or vomiting. Physical Exam 2 Constitutional: WD/WN, vitals as above Eyes: EOM intact bilaterally; no conjunctival abnormality ENMT: external ear and nose normal, oropharynx normal Neck: trachea midline, no thyromegaly normal visual inspection Respiratory: normal respiratory effort, lungs clear to auscultation no respiratory distress Cardiovascular: RRR, no murmur, no edema Gastrointestinal (Abdomen): Inspection/Auscultation: abdomen normal to inspection; abdomen not distended Musculoskeletal: no cyanosis or clubbing, extremities motor strength 5/5 Skin: no rashes, warm and dry Neurologic: moves all extremities and awake Psychiatric: Orientation: alert, oriented to person and cooperative Results & Data Results & Data ([facility]) Vital Signs (Past 12 Hours) Vital Signs Temp Pulse Pulse Resp BP Pulse Ox O2 Del Method 06/01/22 16:21 36.8 C 67 16 120/66 98 Room Air 06/01/22 14:05 68 06/01/22 11:29 36.7 C 70 16 122/73 95 Room Air 06/01/22 08:07 36.7 C 67 16 121/70 96 Room Air 06/01/22 07:05 Room Air 06/01/22 06:01 75 PG Care Time/CCT Total # of Minutes Spent Total Time Spent with Patient: Total time spent is greater than 50% in coordination of care (as documented) at patient's floor/unit and/or counseling patient: Coding Level of Care Code 20941 Subseq Hosp Care Lvl 3 Diagnoses Rhabdomyolysis M62.82 Rhabdomyolysis type: non-traumatic Constipation K59.00 DM (diabetes mellitus), type 2, uncontrolled w/neurologic complication E11.49; E11.65 CHF (congestive heart failure) I50.9 Parkinsons disease G20 A-fib I48.91 Sensorineural hearing loss (SNHL) of both ears H90.3 Anxiety F41.9 Falls W19.XXXA Leukocytosis D72.829 Peripheral neuropathy G62.9 (1) Rhabdomyolysis Rhabdomyolysis type: non-traumatic Qualified Code(s): M62.82 - Rhabdomyolysis
[2022-06-01] MEDS: ASPIRIN 81 MG ECTAB PO SCH (20:24)
[2022-06-02] MEDS: INSULIN ASPART PER UNIT SC SCH ×4 (08:37→20:36)
[2022-06-02] MEDS: LANTUS PER UNIT CHARGE SQ SCH ×2 (08:38→20:36)
[2022-06-02] MEDS: CARBIDOPA/LEVODOPA 25/100MG TAB PO SCH ×4 (08:39→20:36)
[2022-06-02] MEDS: GABAPENTIN 400 MG CAP PO SCH ×2 (08:40→20:35)
[2022-06-02] MEDS: BUTT PASTE (ZINC OXIDE 16%) 171 APPLN/57 GM JAR EXT SCH ×2 (08:40→20:35)
[2022-06-02] MEDS: AMANTADINE HCL 100 MG CAPSULE PO SCH ×2 (08:40→20:35)
[2022-06-02] MEDS: NYSTATIN POWDER 15GM BTL EXT SCH ×2 (08:40→20:36)
[2022-06-02] MEDS: CETIRIZINE HCL 10 MG TABLET PO PRN (08:40)
[2022-06-02] MEDS: POTASSIUM CHLORIDE 10 MEQ TABCR PO SCH ×2 (08:44→20:35)
[2022-06-02] MEDS: LORazepam 0.5 MG TAB PO PRN (09:17)
--- NOTE | 2022-06-02 17:40 | Hospitalist Progress Note ---
Date of Service June 02, 2022 Assessment & Plan (1) Rhabdomyolysis: Plan: Admitted on account of elevated CPK following a fall. Initial CPK was >2000. - Rhabdo is now resolved following IV fluids - She is awaiting placement. Had to be lowered in the bathroom, but no injury. Stable otherwise. (2) Constipation: Plan: She failed multiple attempts with Miralax, Dulcolax, senna, tap water enema. Now resolved following Golytely. - Monitor BMs - One today. (3) DM (diabetes mellitus), type 2, uncontrolled w/neurologic complication: Plan: A1c was 8.0% on 05/22. - ADA diet - Long-acting insulin 15 mg SQ BID - Sliding scale coverage -> Blood sugars 112 - 180 in last 24 hours. (4) CHF (congestive heart failure): Plan: Chronic diastolic failure. - No overt exacerbation at this time. Appears euvolemic today on 06/02. - Monitor intake and output. - Monitor volume status; presently not on a diuretic. (5) Parkinsons disease: Plan: Stable with current medical management. - Continue home Sinemet & amantadine (6) A-fib: Plan: Chronic. - Continue Xarelto - No rate control needed. HR is 70 bpm. (7) Sensorineural hearing loss (SNHL) of both ears: Plan: Aware. - Supportive care (8) Anxiety: Plan: Stable. - Continue lorazepam BID PRN (9) Falls: Plan: Treat underlying acute problems. - OT and PT assessments -> Plan for [facility] (10) Leukocytosis: Plan: Infectious process ruled out. Antibiotics discontinued. This is probably reactive. - Resolved (11) Peripheral neuropathy: Plan: The patient states her symptoms have recently worsened. Gabapentin up titrated on 05/23. - Stable. Plan VTE ppx: Xarelto for afib Admission and Anticipated Discharge Date Admission Date: May 23, 2022 Subjective Doing well today. In good spirits. Reports no fevers/chills, chest pain, shortness of breath, abdominal pain, nausea, or vomiting. Physical Exam Constitutional: WD/WN, vitals as above Eyes: EOM intact bilaterally; no conjunctival abnormality ENMT: external ear and nose normal, oropharynx normal Neck: trachea midline, no thyromegaly normal visual inspection Respiratory: normal respiratory effort, lungs clear to auscultation no respiratory distress Cardiovascular: RRR, no murmur, no edema Gastrointestinal (Abdomen): Inspection/Auscultation: abdomen normal to inspection; abdomen not distended Musculoskeletal: no cyanosis or clubbing, extremities motor strength 5/5 Skin: no rashes, warm and dry Neurologic: moves all extremities and awake Psychiatric: Orientation: alert, oriented to person and cooperative Results & Data Results & Data ([facility]) Vital Signs (Past 12 Hours) Vital Signs Temp Pulse Pulse Resp BP Pulse Ox O2 Del Method 06/02/22 14:40 36.9 C 69 18 127/73 98 Room Air 06/02/22 10:52 36.6 C 78 18 123/67 95 Room Air 06/02/22 07:54 36.7 C 69 18 119/71 97 Room Air 06/02/22 07:12 Room Air 06/02/22 07:01 71 PG Care Time/CCT Total # of Minutes Spent Total Time Spent with Patient: Total time spent is greater than 50% in coordination of care (as documented) at patient's floor/unit and/or counseling patient: Coding Level of Care Code 94111 Subseq Hosp Care Lvl 2 Diagnoses Rhabdomyolysis M62.82 Rhabdomyolysis type: non-traumatic Constipation K59.00 DM (diabetes mellitus), type 2, uncontrolled w/neurologic complication E11.49; E11.65 CHF (congestive heart failure) I50.9 Parkinsons disease G20 A-fib I48.91 Sensorineural hearing loss (SNHL) of both ears H90.3 Anxiety F41.9 Falls W19.XXXA Leukocytosis D72.829 Peripheral neuropathy G62.9 (1) Rhabdomyolysis Rhabdomyolysis type: non-traumatic Qualified Code(s): M62.82 - Rhabdomyolysis
[2022-06-02] MEDS: RIVAROXABAN 20 MG TAB PO SCH (17:46)
[2022-06-02] MEDS: ASPIRIN 81 MG ECTAB PO SCH (20:35)
[2022-06-03] MEDS: ACETAMINOPHEN 325 MG TAB PO PRN (04:12)
[2022-06-03] MEDS: CETIRIZINE HCL 10 MG TABLET PO PRN (07:47)
[2022-06-03] MEDS: CARBIDOPA/LEVODOPA 25/100MG TAB PO SCH ×2 (07:47→12:43)
[2022-06-03] MEDS: NYSTATIN POWDER 15GM BTL EXT SCH (07:48)
[2022-06-03] MEDS: GABAPENTIN 400 MG CAP PO SCH (07:48)
[2022-06-03] MEDS: AMANTADINE HCL 100 MG CAPSULE PO SCH (07:48)
[2022-06-03] MEDS: BUTT PASTE (ZINC OXIDE 16%) 171 APPLN/57 GM JAR EXT SCH (07:49)
[2022-06-03] MEDS: POTASSIUM CHLORIDE 10 MEQ TABCR PO SCH (07:50)
[2022-06-03] MEDS: LANTUS PER UNIT CHARGE SQ SCH (08:14)
[2022-06-03] MEDS: INSULIN ASPART PER UNIT SC SCH ×2 (08:14→12:09)
--- NOTE | 2022-06-03 17:22 | Discharge Summary ---
Date of Service June 03, 2022 Admission HPI Per Admitting Provider 76yo female with PMH of Parkinson's, paroxysmal afib, DM2 with neuropathy, anxiety who presented after being found on the floor of her home by family members. Patient lives alone and states that she fell from bed and was unable to get up. She does have significant ambulatory dysfunction at baseline in the setting of her Parkinson's and diabetic neuropathy. She denies feeling lightheaded or dizzy. Says she believes she was asleep as she does not remember the fall, just remembers getting into bed to sleep. She denies neck or back pain, only left elbow pain at this time. No LOYA, dizziness, n/v. Also denies CP, palp, SOB, abd pain. She does state she has had a sore throat and mild cough for the last 2 days or so. No known sick contacts. Denies f/c, body/muscle aches. In ED patient had lab work significant for CK of 1774, glucose 346, BUN 39 with normal creatinine and BUN/Cr ratio of 48.8. Had a mild metabolic acidosis with anion gap of 18. Leukocytosis of 15.88. Troponin of 21.2. She was given 1L NSS and a dose of Zosyn. Blood cultures were drawn. Negative for COVID, Flu, and RSV. CT head negative, CT A/P w/o significant acute findings, CT C-spine w/o acute injury, elbow XR w/o fracture, CXR w/o acute disease (see complete reads for further details). Principal Diagnosis Fall Discharge Exam Constitutional WD/WN, vitals as above Eyes EOM intact bilaterally; no conjunctival abnormality ENMT external ear and nose normal, oropharynx normal Neck trachea midline, no thyromegaly normal visual inspection Respiratory normal respiratory effort, lungs clear to auscultation no respiratory distress Cardiovascular RRR, no murmur, no edema Gastrointestinal (Abdomen) Inspection/Auscultation: abdomen normal to inspection; abdomen not distended Musculoskeletal no cyanosis or clubbing, extremities motor strength 5/5 Skin no rashes, warm and dry Neurologic moves all extremities and awake Psychiatric Orientation: alert, oriented to person and cooperative Discharge Data Allergies Allergy/AdvReac Type Severity Reaction Status Date / Time benztropine Allergy Unknown PT NOT SURE Verified 05/22/22 20:22 citalopram Allergy Unknown PT NOT SURE Verified 05/22/22 20:22 doxycycline Allergy Unknown REMOTE HX, Verified 05/22/22 20:22 PT NOT SURE REACTION minocycline Allergy Unknown REMOTE HX, Verified 05/22/22 20:22 PT NOT SURE REACTION simvastatin Allergy Unknown PT NOT SURE Verified 05/22/22 20:22 sulindac Allergy Unknown PT NOT SURE Verified 05/22/22 20:22 empagliflozin AdvReac Intermediate Recurrent Verified 05/22/22 20:22 [From Jardiance] Urinary Tract Infection Consultations 05/22/22 23:57 ED Decision to Admit Stat Ordered Studies 05/22/22 19:46 CT abd pelvis wo con Stat CT cervical spine wo con Stat CT head/brain wo con Stat Hospital Course (1) Rhabdomyolysis: Admitted on account of elevated CPK following a fall. Initial CPK was >2000. - Rhabdo is now resolved following IV fluids - She is awaiting placement. (2) Constipation: She failed multiple attempts with Miralax, Dulcolax, senna, tap water enema. Now resolved following Golytely. - Monitor BMs - Reliable BMs in days prior to discharge. (3) DM (diabetes mellitus), type 2, uncontrolled w/neurologic complication: A1c was 8.0% on 05/22. Usually on an insulin pump prior to admission, but switched to subcut in the hospital. - ADA diet - Long-acting insulin 15 mg SQ BID - Sliding scale coverage -> Blood sugars 112 - 180 in last 24 hours. (4) CHF (congestive heart failure): Chronic diastolic failure. - No overt exacerbation at this time. Appears euvolemic in days prior to discharge. - Monitor intake and output. - Monitor volume status; presently not on a diuretic. (5) Parkinsons disease: Stable with current medical management. - Continue home Sinemet & amantadine (6) A-fib: Chronic. - Continue Xarelto - No rate control needed. HR is 70 bpm. (7) Sensorineural hearing loss (SNHL) of both ears: Aware. - Supportive care (8) Anxiety: Stable. - Continue lorazepam BID PRN (9) Falls: Treat underlying acute problems. - OT and PT assessments -> Plan for [facility] (10) Leukocytosis: Infectious process ruled out. Antibiotics discontinued. This is probably reactive. - Resolved (11) Peripheral neuropathy: The patient states her symptoms have recently worsened. Gabapentin up titrated on 05/23. - Stable. Plan VTE ppx: Xarelto for afib Total Time Total Time Spent Total Time Spent (In Minutes): 35 Discharge Plan Discharge Items Patient Disposition: Transfer Assisted Fac Reason For Visit: FALL Discharge Diagnosis: Fall Activity: Resume your previous activity Non-emergency contact: Primary Care Provider Call non-emergency contact if: your symptoms worsen Follow-up/Referrals: Damaris Vega MD [Primary Care Provider] - Diet: Carb Consistent or DM2 Addtl Attending Provider Instructions: Ms. Ramirez, You were in the hospital after a fall. We are getting you to rehab to try to get stronger. You had some muscle damage, but it improved with fluids. We switched you off your insulin pump to long-acting and sliding scale which can be continued. Pending Studies at Discharge: No Stand-Alone Forms: My [facility] Skilled Items Patient informed of condition?: No DNR: No Discharge Level of Care: Acute rehab Communicable Disease: No Discharge Prognosis: Improving Lines: None Urinary Catheter: No Medications and DC Order Prescriptions: New insulin glargine [Lantus U-100 Insulin] 100 unit/mL Solution 15 unit subcut BID Qty: 0 0RF insulin aspart U-100 [Novolog U-100 Insulin aspart] 100 unit/mL Solution See Rx Instructions .ROUTE .COMPLEX Qty: 0 0RF Rx Instructions: --Goal BSG Range: Low 110mg/dL, High 180mg/dL --Correction Factor: 25mg/dL/unit --Carbohydrate ratio = 10 g/unit --BSGs ACHS if eating, q6h if npo Continued (DME) FreeStyle Ruben 2 Sensor Kit See Rx Instructions .ROUTE .MEDSUPPLY Qty: 1 Rx Instructions: As directed cetirizine [Zyrtec] 10 mg tablet 10 mg PO DAILY PRN (Reason: Allergy Symptoms) amantadine HCl 100 mg capsule 100 mg PO [facility] (DME) OneTouch Verio test strips Strip See Rx Instructions .ROUTE .MEDSUPPLY Qty: 10 Rx Instructions: Test blood sugar once daily PRN gabapentin 300 mg capsule 300 mg PO BID aspirin [Yariel Low Dose Aspirin] 81 mg tablet,delayed release (DR/EC) 81 mg PO HS lorazepam 0.5 mg tablet 0.5 mg PO BID PRN (Reason: Anxiety) Xarelto 20 mg tablet 20 mg PO QPM carbidopa-levodopa 25-100 mg tablet 2 tab PO QID Discontinued insulin lispro [Humalog U-100 Insulin] 100 unit/mL solution See Rx Instructions .ROUTE .COMPLEX Qty: 90 3RF Rx Instructions: Infuse via insulin pump up to 90 units a day; Discharge Orders: Discharge Order (Routine); Ordered 06/03/22 Ordered By: Tc Johnson/Other Patient Handouts: Managing Type 2 Diabetes, [facility] for Diabetes Admission Data Admit Date/Time: 05/23/22 00:55 Attending Provider: Tc Dickey Admit Provider: Atif Davidson Primary Care Provider: Damaris Vega Other Providers: Yudi Meza ; [facility] ; [facility] Other Interventions: Discharge Summary Assessment (RN) Last Done: 06/03/22 12:01 Coding Level of Care Code D/C DAY MANAGEMENT >30 MINS Diagnoses Rhabdomyolysis M62.82 Rhabdomyolysis type: non-traumatic Constipation K59.00 DM (diabetes mellitus), type 2, uncontrolled w/neurologic complication E11.49; E11.65 CHF (congestive heart failure) I50.9 Parkinsons disease G20 A-fib I48.91 Sensorineural hearing loss (SNHL) of both ears H90.3 Anxiety F41.9 Falls W19.XXXA Leukocytosis D72.829 Peripheral neuropathy G62.9
== END 2022-06-03 14:49 | DRG 565 ==
LOC: ED 19:27 → 2N 05-23 00:55 → SUATTDRO 05-23 00:55 → 2N 05-23 02:46

== ENCOUNTER 2022-08-16 16:27 | Inpatient (IN) ==
--- NOTE | 2022-08-16 16:35 | Emergency Department Note ---
Impression & Plan Speech abnormality, Hyperglycemia, Carotid stenosis ED Provider Note NAME: BASSEM VIVEROS AGE: 77 SEX: F : 1945 ARRIVES VIA: Ambulance INFORMANT: [Patient][, ] ED PROVIDER(S): [Aristeo Dykes MD] CHIEF COMPLAINT: Speech issues MEDICAL DECISION MAKING: Patient presents due to concern for possible slurred speech per daughter which had been relayed to EMS. Patient is not a TNK candidate as unknown last known well and the patient is already on Xarelto. Blood work was obtained along with an EKG troponin chest x-ray CT head CT angio of the head and neck. [id number] BMP was obtained which did show a creatinine of 0.7. Patient's blood work shows a normal white count H&H and platelet count. Kidney function is unremarkable. Glucose 193. Calcium normal bilirubin 1.3. COVID- negative. The patient's CT of the head is negative. CT angiography of the head and neck shows stenosis 90% of the left ICA. No significant stenosis or occlusion or dissection of the right carotid averts. Patient has no change in the acoustic neuroma. Given patient's intermittent speech issues I did speak with the on- call hospitalist service Arnulfo Mendez PA-C and patient was admitted by Dr. Meza. Prior /Outside records reviewed: We reviewed the patient's most recent discharge summary from Dr. Dickey in May 2022 Differential diagnosis: Infection, dehydration, metabolic abnormality, hypo/hyperglycemia, electrolyte disturbance, anemia, hypoxia, cardiac sources, intracerebral event, toxicologic, neurologic, as well as other pathologies. Diagnostics, as interpreted by me: ECG: [none] Cardiac monitoring: An order was placed for continuous cardiac monitoring. The monitor shows a rate of 78 with sinus rhythm. Patient was placed on pulse oximetry Medical decision rules: none Imaging studies: See below HPI: Patient presents due to concern for worsening speech per EMS as was reported by daughter. Patient believes that her speech is okay. Patient has a known history of Parkinson's and A-fib. Patient states that she did take her medications this morning and does not complain of any current slurred speech. Patient denies any chest pains shortness of breath nausea or vomiting. No reported falls or trauma. PAST MEDICAL HISTORY: [See Below] PAST SURGICAL HISTORY: [See Below] SOCIAL HISTORY: [See Below] HOME MEDICATIONS: [See Below] ALLERGIES: [See Below] VITALS: [See Below] PHYSICAL EXAMINATION: GENERAL: NAD, [wearing a mask,] non-toxic. EYE EXAM: Normal conjunctiva. PERRL, no anisocoria and EOM's grossly intact w/o pain. NECK: Supple, no nuchal rigidity, no adenopathy, non-tender. No signs of meningismus. FROM of the neck with good chin to chest and neck extension. No stridor. LUNGS: Clear to auscultation. Normal chest wall mechanics. HEART: NSR, no MRG. ABDOMEN: Abdomen soft, non-tender, normo-active bowel sounds, no masses, no rebound or guarding. BACK: No CVA TTP. SKIN: No rashes and no bruising. UPPER EXTREMITIES: Upper extremities are grossly normal. LOWER EXTREMITIES: Grossly normal, no edema. NEURO EXAM: A&O x3, cranial nerves II-XII grossly intact, occasional confused speech but answers questions appropriately when asked, moves all 4 extremities. No sensory deficits Past Med/Surg History Medical History Acoustic neuroma FOLLOWS DR MITCHELL - UPCOMING RADIATION TREATMENT AFTER CATARACT SURGERY Anxiety Chronic heart failure Complicated migraine "COMPLICATED MIGRAINES" - OCCUR OFTEN AND RESEMBLE SYMPTOMS OF A STROKE PER PT Diabetes INSULIN PUMP DVT prophylaxis GERD (gastroesophageal reflux disease) HX History of colon polyps History of high cholesterol History of TIA (transient ischemic attack) 2004 ,HX PT FOR, NO REMAINING RESIDUAL EFFECTS Hypertension HX BLOOD PRESSURE MEDICINE, ONCE A FIB DX - MED WAS D/C'D - PT REPORTS BLOOD PRESSURE USUALLY RUNS LOW AROUND 106/58 Mitral valve disorder DENIES Obesity Parkinson disease Permanent atrial fibrillation DX 2 YR AGO, NO HX CARDIOVERSION Surgical History H/O breast biopsy 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 History of left knee replacement S/P appendectomy HX S/P cholecystectomy HX Family History Mother Diabetes Congestive heart failure Colorectal cancer Hypertension Brother Congestive heart failure Colorectal cancer Sister Cancer Unknown Pancreatic cancer Son Family history of colonic polyps Social History Smoking Status: Never smoker Second Hand Exposure: No; Hx Alcohol Use: Yes Alcohol type: beer and wine Hx Substance Use: No Preferred Language: Estonian Communication Ability: Effective Visual Impairment: No Limitations Cottrell Blower Required: No Beliefs That Will Affect Care: None marital status: Unknown Current Living Situation: Alone Current Living Situation Comment: condo How many Children do You have: 2 Feels Safe at Home: Yes Assistive Devices: Walker Allergies Allergies Allergy/AdvReac Type Severity Reaction Status Date / Time benztropine Allergy Unknown PT NOT SURE Verified 08/16/22 19:20 citalopram Allergy Unknown PT NOT SURE Verified 08/16/22 19:20 doxycycline Allergy Unknown REMOTE HX, Verified 08/16/22 19:20 PT NOT SURE REACTION minocycline Allergy Unknown REMOTE HX, Verified 08/16/22 19:20 PT NOT SURE REACTION simvastatin Allergy Unknown PT NOT SURE Verified 08/16/22 19:20 sulindac Allergy Unknown PT NOT SURE Verified 08/16/22 19:20 empagliflozin AdvReac Intermediate Recurrent Verified 08/16/22 19:20 [From Jardiance] Urinary Tract Infection Home Meds Home Medications Medication Instructions Recorded Confirmed aspirin 81 mg tablet,delayed 81 mg PO HS 01/19/19 08/16/22 release (Yariel Low Dose Aspirin) lorazepam 0.5 mg tablet 0.5 mg PO BID PRN Anxiety 11/08/19 08/16/22 rivaroxaban 20 mg tablet (Xarelto) 20 mg PO QPM 11/08/19 08/16/22 carbidopa 25 mg-levodopa 100 mg 2 tab PO QID 02/07/20 08/16/22 tablet flash glucose sensor (FreeStyle #1 ea 09/02/20 07/21/22 Ruben 2 Sensor kit) gabapentin 300 mg capsule 300 mg PO BID 10/15/21 08/16/22 amantadine HCl 100 mg capsule 100 mg PO AMHS 01/13/22 08/16/22 blood sugar diagnostic (OneTouch #10 ea 01/13/22 07/21/22 Verio test strips) cetirizine 10 mg tablet (Zyrtec) 10 mg PO DAILY PRN Allergy Symptoms 01/13/22 08/16/22 Previous Rx's Medication Instructions Recorded insulin aspart U-100 100 unit/mL See Rx Instructions .Route 06/03/22 subcutaneous solution (Novolog .COMPLEX #0 mL U-100 Insulin aspart) Results & Data (ED) Vital Signs Vital Signs - 24 hr 08/16/22 16:29 08/16/22 16:38 08/16/22 17:08 Temperature 36.8 C Temperature Source Oral Pulse Rate 79 77 Pulse Rate [Apical] 75 Respiratory Rate 15 20 Respiratory Effort / Characteristics Non-Labored Spontaneous Respiratory Depth Normal Respiratory Pattern Regular Blood Pressure 166/72 H Blood Pressure [Left Arm] 141/72 H Blood Pressure Mean 103 Blood Pressure Mean [Left Arm] 95 Pulse Oximetry 98 98 Oxygen Delivery Method Room Air Room Air Sepsis Recent Fever Within 48 Hours No Sepsis New/Unexplained Change in Mental Status Yes Sepsis Action Taken by Nursing No Action Required 08/16/22 18:12 Temperature Temperature Source Pulse Rate Pulse Rate [Apical] 80 Respiratory Rate 18 Respiratory Effort / Characteristics Non-Labored Spontaneous Respiratory Depth Normal Respiratory Pattern Blood Pressure Blood Pressure [Left Arm] 170/94 H Blood Pressure Mean Blood Pressure Mean [Left Arm] 119 Pulse Oximetry 98 Oxygen Delivery Method Room Air Sepsis Recent Fever Within 48 Hours Sepsis New/Unexplained Change in Mental Status Sepsis Action Taken by Retirement Medications Current Medication List: was personally reviewed by me Laboratory Data Attestation: I reviewed the patient's lab results. 08/16/22 16:39 08/16/22 16:39 Lab Results 08/16/22 08/16/22 08/16/22 Range/Units 16:37 16:39 16:39 WBC 5.15 (4.8-10.8) K/ul RBC 4.90 (4.20-5.40) M/uL Hgb 14.5 (12.0-16.0) g/dl POC Hgb (12.0-16.0) g/dl Hct 43.3 (37.0-47.0) % POC Hct (37-47) % MCV 88.4 (80.0-100.0) fL MCH 29.6 (25.0-34.0) pg MCHC 33.5 (32.0-36.0) g/dL RDW Std Deviation 45.8 (36.4-46.3) fL RDW Coeff of Vicky 14.4 (11.5-14.5) % Plt Count 193 (130-400) K/uL MPV 10.8 (9.4-12.4) fL Immature Gran % (Auto) 0.4 % Neut % (Auto) 74.6 % Lymph % (Auto) 16.3 % [place] % (Auto) 6.6 % Eos % (Auto) 1.7 % Baso % (Auto) 0.4 % Neut # (Auto) 3.84 (1.40-6.50) K/uL Lymph # (Auto) 0.84 L (1.2-3.4) K/uL [place] # (Auto) 0.34 (0.11-0.59) K/uL Eos # (Auto) 0.09 (0-0.50) K/uL Baso # (Auto) 0.02 (0-0.2) K/uL Immature Gran # (Auto) 0.02 (0.01-0.20) K/uL PT 11.9 (9.0-12.0) Seconds INR 1.1 (0.9-1.1) APTT 24.5 (21.0-31.0) Seconds PTT Ratio 0.9 POC Sodium (135-144) mmol/L Sodium (136-145) mmol/L POC Potassium (3.3-5.0) mmol/L Potassium (3.5-5.1) mmol/L POC Chloride (101-112) mmol/L Chloride (98-107) mmol/L Carbon Dioxide (21-32) mmol/L POC Total CO2 (24-31) mmol/L Anion Gap (3-11) POC Anion Gap (16-25) mmol/L POC BUN (7-18) mg/dl BUN (6-23) mg/dl Creatinine (0.6-1.2) mg/dl POC Creatinine (0.6-1.3) mg/dl Est Cr Clr Drug Dosing ml/min Est GFR ( Amer) ml/min Est GFR (Non-Af Amer) ml/min BUN/Creatinine Ratio (10-20) Glucose (70-99(Fasting)) mg/dl POC Glucose 178 H (70-99) mg/dl POC Glucose (other) (70-99) mg/dl Calcium (8.5-10.1) mg/dl POC Ioniz Calcium Morgan (1.12-1.32) mmol/l Magnesium (1.7-2.4) mg/dl Total Bilirubin (0.2-1.0) mg/dl AST (13-39) U/L ALT (7-52) U/L Alkaline Phosphatase (34-104) U/L Troponin I High Sens (0-14) pg/ml Total Protein (6.0-8.3) gm/dl Albumin (3.4-5.0) gm/dl Globulin (2.5-4.0) gm/dl Albumin/Globulin Ratio (0.9-2) SARS-CoV-2, RNA, NAAT (NEGATIVE) 08/16/22 08/16/22 08/16/22 Range/Units 16:39 16:46 17:05 WBC (4.8-10.8) K/ul RBC (4.20-5.40) M/uL Hgb (12.0-16.0) g/dl POC Hgb 15.0 (12.0-16.0) g/dl Hct (37.0-47.0) % POC Hct 44 (37-47) % MCV (80.0-100.0) fL MCH (25.0-34.0) pg MCHC (32.0-36.0) g/dL RDW Std Deviation (36.4-46.3) fL RDW Coeff of Vicky (11.5-14.5) % Plt Count (130-400) K/uL MPV (9.4-12.4) fL Immature Gran % (Auto) % Neut % (Auto) % Lymph % (Auto) % [place] % (Auto) % Eos % (Auto) % Baso % (Auto) % Neut # (Auto) (1.40-6.50) K/uL Lymph # (Auto) (1.2-3.4) K/uL [place] # (Auto) (0.11-0.59) K/uL Eos # (Auto) (0-0.50) K/uL Baso # (Auto) (0-0.2) K/uL Immature Gran # (Auto) (0.01-0.20) K/uL PT (9.0-12.0) Seconds INR (0.9-1.1) APTT (21.0-31.0) Seconds PTT Ratio POC Sodium 141 (135-144) mmol/L Sodium 139 (136-145) mmol/L POC Potassium 4.2 (3.3-5.0) mmol/L Potassium 4.3 (3.5-5.1) mmol/L POC Chloride 103 (101-112) mmol/L Chloride 105 (98-107) mmol/L Carbon Dioxide 29 (21-32) mmol/L POC Total CO2 25 (24-31) mmol/L Anion Gap 5 (3-11) POC Anion Gap 18.0 (16-25) mmol/L POC BUN 25 H (7-18) mg/dl BUN 24 H (6-23) mg/dl Creatinine 0.75 (0.6-1.2) mg/dl POC Creatinine 0.7 (0.6-1.3) mg/dl Est Cr Clr Drug Dosing 66.1 ml/min Est GFR ( Amer) 89.7 ml/min Est GFR (Non-Af Amer) 77.4 ml/min BUN/Creatinine Ratio 32.0 H (10-20) Glucose 193 H (70-99(Fasting)) mg/dl POC Glucose (70-99) mg/dl POC Glucose (other) 191 H (70-99) mg/dl Calcium 9.7 (8.5-10.1) mg/dl POC Ioniz Calcium Morgan 1.18 (1.12-1.32) mmol/l Magnesium 2.0 (1.7-2.4) mg/dl Total Bilirubin 1.3 H (0.2-1.0) mg/dl AST 21 (13-39) U/L ALT 5 L (7-52) U/L Alkaline Phosphatase 87 (34-104) U/L Troponin I High Sens 6.1 (0-14) pg/ml Total Protein 6.9 (6.0-8.3) gm/dl Albumin 4.0 (3.4-5.0) gm/dl Globulin 2.9 (2.5-4.0) gm/dl Albumin/Globulin Ratio 1.4 (0.9-2) SARS-CoV-2, RNA, NAAT NEGATIVE (NEGATIVE) Administered Medications Amantadine HCl (Amantadine Hcl 100 Mg Capsule) 100 mg PO AMHS LORENZO Stop: 09/15/22 21:44 Last Admin: 08/16/22 22:37 Dose: 100 mg Documented By: CKW Aspirin (Aspirin 81 Mg Ectab) 81 mg PO HS LORENZO Stop: 09/15/22 21:44 Last Admin: 08/16/22 22:37 Dose: 81 mg Documented By: NORBERTO Atorvastatin Calcium (Atorvastatin 40 Mg Tab) 40 mg PO QAM LORENZO Stop: 09/15/22 21:29 Last Admin: 08/16/22 22:37 Dose: 40 mg Documented By: NORBERTO Carbidopa/Levodopa (Carbidopa/Levodopa 25/100mg Tab) 2 tab PO QID@0800,1200,1600,2000 LORENZO Stop: 09/15/22 21:25 Last Admin: 08/16/22 22:37 Dose: 2 tab Documented By: NORBERTO Gabapentin (Gabapentin 300 Mg Cap) 300 mg PO BID LORENZO Stop: 09/15/22 21:44 Last Admin: 08/16/22 22:38 Dose: 300 mg Documented By: NORBERTO Lactated Ringer's (Lr) 1,000 mls @ 80 mls/hr IV .[id number] LORENZO Stop: 08/17/22 21:29 Last Admin: 08/16/22 21:51 Dose: 80 mls/hr Documented By: NORBERTO Insulin Glargine (Lantus Per Unit Charge) 5 units SQ BID LORENZO Stop: 09/15/22 20:59 Last Admin: 08/16/22 22:38 Dose: 5 units Documented By: NORBERTO Co-signed By: MERLYN Rivaroxaban (Rivaroxaban 20 Mg Tab) 20 mg PO QPM LORENZO Stop: 09/15/22 21:44 Last Admin: 08/16/22 22:38 Dose: 20 mg Documented By: NORBERTO Discontinued Medications Ioversol (Optiray 320 500ml) 113 ml IV ONCE ONE Stop: 08/16/22 18:02 Last Admin: 08/16/22 18:05 Dose: 113 ml Documented By: SRUTHI Imaging Data Radiologist's Impression: Head CT 08/16/22 16:[address] DOSE: HISTORY: Slurred speech. neuro deficit, acute stroke suspected TECHNIQUE: Multiaxial CT images of the head were performed without the use of intravenous contrast. Automated exposure control was utilized for this study. A dose lowering technique was utilized adhering to the principles of ALARA. Comparison: Head CT 06/23/2022. Findings: The paranasal sinuses and mastoid air cells are clear. The calvarium and skull base are intact. There is no hematoma, midline shift, acute infarct. White matter hypodensity is nonspecific but suggestive of microvascular ischemic change. The ventricles and sulci demonstrate mild age-related involutional changes. Postoperative changes again noted within the left globe. Stable right cerebellopontine angle cistern lesion suggestive of an acoustic neuroma. Impression: No significant change compared to the prior study. No acute intracranial abnormality. Stable right cerebellopontine angle cistern lesion suggestive of an acoustic neuroma. ACT 112: Negative or not required by law. Electronically signed by: Cali Reilly M.D. 08/16/2022 6:25 PM Head CTA 08/16/22 16:53 HEAD & NECK CTA HISTORY: Slurred speech. neuro deficit, acute stroke suspected TECHNIQUE: Multiaxial CT images of the head were performed following the intravenous administration of contrast to evaluate the major cerebral vessels. Multiaxial CT images of the neck were also performed following the intravenous administration of contrast to evaluate the major cervical vessels. Maximum intensity projection images were also obtained. A dose lowering technique was utilized adhering to the principles of ALARA. COMPARISON: Head and neck CTA 02/17/2020. FINDINGS: Stable 2 cm right cerebellopontine angle cistern mass which appears to extend into the right internal internal auditory canal. Therefore, this is consistent with an acoustic neuroma. Visualized intracranial internal carotid arteries, distal vertebral arteries, and basilar artery are widely patent. There is no significant stenosis, occlusion, or aneurysm seen within the bilateral ACAs, MCAs, or scanner operator. The major dural venous sinuses are patent. Moderate calcified plaque within the bilateral carotid siphons. The aortic arch and proximal great vessels are widely patent. There is no significant stenosis, occlusion, or dissection identified within the bilateral common carotid, right internal carotid, or vertebral arteries. Stable thyroid nodules with the largest on the right measuring 4 cm. Stable subcentimeter nodules within the lung apices measuring up to 4 mm. Mild calcified plaque within the right carotid bifurcation. There is moderate atherosclerotic plaque within the left carotid bifurcation is a focal area of up to 90% stenosis within the proximal left internal carotid artery best seen on image 203. This has progressed in the interval. Remaining left internal carotid artery is patent. IMPRESSION: 1. No significant stenosis, occlusion, or aneurysm within the [place]. 2. There is a focal area of 90% stenosis within the proximal left internal carotid artery which has progressed in the interval. 3. No significant stenosis, occlusion, or dissection within the right carotid or vertebral arteries. 4. No change in the 2 cm right cerebellopontine angle lesion which likely represents an acoustic neuroma. ACT 112: Negative or not required by law. Electronically signed by: Cali Reilly M.D. 08/16/2022 6:33 PM Neck CTA 08/16/22 16:53 HEAD & NECK CTA HISTORY: Slurred speech. neuro deficit, acute stroke suspected TECHNIQUE: Multiaxial CT images of the head were performed following the intravenous administration of contrast to evaluate the major cerebral vessels. Multiaxial CT images of the neck were also performed following the intravenous administration of contrast to evaluate the major cervical vessels. Maximum intensity projection images were also obtained. A dose lowering technique was utilized adhering to the principles of ALARA. COMPARISON: Head and neck CTA 02/17/2020. FINDINGS: Stable 2 cm right cerebellopontine angle cistern mass which appears to extend into the right internal internal auditory canal. Therefore, this is consistent with an acoustic neuroma. Visualized intracranial internal carotid arteries, distal vertebral arteries, and basilar artery are widely patent. There is no significant stenosis, occlusion, or aneurysm seen within the bilateral ACAs, MCAs, or scanner operator. The major dural venous sinuses are patent. Moderate calcified plaque within the bilateral carotid siphons. The aortic arch and proximal great vessels are widely patent. There is no significant stenosis, occlusion, or dissection identified within the bilateral common carotid, right internal carotid, or vertebral arteries. Stable thyroid nodules with the largest on the right measuring 4 cm. Stable subcentimeter nodules within the lung apices measuring up to 4 mm. Mild calcified plaque within the right carotid bifurcation. There is moderate atherosclerotic plaque within the left carotid bifurcation is a focal area of up to 90% stenosis within the proximal left internal carotid artery best seen on image 203. This has progressed in the interval. Remaining left internal carotid artery is patent. IMPRESSION: 1. No significant stenosis, occlusion, or aneurysm within the [place]. 2. There is a focal area of 90% stenosis within the proximal left internal carotid artery which has progressed in the interval. 3. No significant stenosis, occlusion, or dissection within the right carotid or vertebral arteries. 4. No change in the 2 cm right cerebellopontine angle lesion which likely rep resents an acoustic neuroma. ACT 112: Negative or not required by law. Electronically signed by: Cali Reilly M.D. 08/16/2022 6:33 PM Discharge Plan Visit Data Chief Complaint: TIA Symptoms Stated Complaint: daughter thinks her speech is worse. ED Provider: Aristeo Dykes Discharge Problem: Speech abnormality, Hyperglycemia, Carotid stenosis Patient Disposition: Admitted As Inpatient Discharge Instructions Interventions: ED Discharge Assessment Last Done: 08/16/22 21:40 Speech abnormality Qualifiers: Speech disturbance type: unspecified speech disturbance Qualified Code(s): R47.9 - Unspecified speech disturbances Carotid stenosis Qualifiers: Laterality: left Qualified Code(s): I65.22 - Occlusion and stenosis of left carotid artery
[2022-08-16 16:58] LABS: iSTAT Creatinine 0.7 mg/dl (0.6-1.3); iSTAT Ionized Calcium 1.18 mmol/l (1.12-1.32); iSTAT Potassium 4.2 mmol/L (3.3-5.0)
[2022-08-16 17:08] LABS: Basophils # (auto) 0.02 K/uL (0-0.2); Basophils % (auto) 0.4 %; Eosinophils # (auto) 0.09 K/uL (0-0.50); Eosinophils % (auto) 1.7 %; Hematocrit (blood only) 43.3 % (37.0-47.0); Hemoglobin 14.5 g/dl (12.0-16.0); Immature Granulocytes # (auto) 0.02 K/uL (0.01-0.20); Immature Granulocytes % (auto) 0.4 %; Lymphocytes # (auto) 0.84 K/uL (1.2-3.4); Lymphocytes % (auto) 16.3 %; Mean Corpuscular Hemoglobin 29.6 pg (25.0-34.0); Mean Corpuscular Hgb Conc 33.5 g/dL (32.0-36.0); Mean Corpuscular Volume 88.4 fL (80.0-100.0); Mean Platelet Volume 10.8 fL (9.4-12.4); Monocytes # (auto) 0.34 K/uL (0.11-0.59); Monocytes % (auto) 6.6 %; Neutrophils # (auto) 3.84 K/uL (1.40-6.50); Neutrophils % (auto) 74.6 %; Platelet Count 193 K/uL (130-400); RDW Coefficient of Variation 14.4 % (11.5-14.5); RDW Standard Deviation 45.8 fL (36.4-46.3); White Blood Count 5.15 K/ul (4.8-10.8)
[2022-08-16 17:25] LABS: Albumin Globulin Ratio 1.4 (0.9-2); Bilirubin,Total 1.3 mg/dl (0.2-1.0); Calcium 9.7 mg/dl (8.5-10.1); Creatinine Clr Calc Pharmacy 66.1 ml/min; Est GFR (African American) 89.7 ml/min; Est GFR (Non-African American) 77.4 ml/min; Globulin 2.9 gm/dl (2.5-4.0); Potassium 4.3 mmol/L (3.5-5.1); Total Protein 6.9 gm/dl (6.0-8.3)
[2022-08-16 17:32] LABS: Troponin I High Sensitivity 6.1 pg/ml (0-14)
[2022-08-16 17:36] LABS: INR 1.1 (0.9-1.1); Partial Thromboplastin Ratio 0.9; Partial Thromboplastin Time 24.5 Seconds (21.0-31.0); Prothrombin Time 11.9 Seconds (9.0-12.0)
[2022-08-16] MEDS ORDERED: OPTIRAY 320 500ml IV ONE (18:01)
--- NOTE | 2022-08-16 18:23 | CT Scan Report ---
HEAD CT NONCONTRAST CT DOSE: HISTORY: Slurred speech. neuro deficit, acute stroke suspected TECHNIQUE: Multiaxial CT images of the head were performed without the use of intravenous contrast. A utomated exposure control was utilized for this study. A dose lowering technique was utilized adheri ng to the principles of ALARA. Comparison: Head CT 06/23/2022. Findings: The paranasal sinuses and mastoid air cells are clear. The calvarium and skull base are int act. There is no hematoma, midline shift, acute infarct. White matter hypodensity is nonspecific but suggestive of microvascular ischemic change. The ventricles and sulci demonstrate mild age-related in volutional changes. Postoperative changes again noted within the left globe. Stable right cerebellopo ntine angle cistern lesion suggestive of an acoustic neuroma. Impression: No significant change compared to the prior study. No acute intracranial abnormality. Stable right ce rebellopontine angle cistern lesion suggestive of an acoustic neuroma. ACT 112: Negative or not required by law. Electronically signed by: Cali Reilly M.D. 08/16/2022 6:25 PM
--- NOTE | 2022-08-16 18:34 | CT Scan Report ---
HEAD & NECK CTA HISTORY: Slurred speech. neuro deficit, acute stroke suspected TECHNIQUE: Multiaxial CT images of the head were performed following the intravenous administration o f contrast to evaluate the major cerebral vessels. Multiaxial CT images of the neck were also perform ed following the intravenous administration of contrast to evaluate the major cervical vessels. Maxim um intensity projection images were also obtained. A dose lowering technique was utilized adhering to the principles of ALARA. COMPARISON: Head and neck CTA 02/17/2020. FINDINGS: Stable 2 cm right cerebellopontine angle cistern mass which appears to extend into the right internal internal auditory canal. Therefore, this is consistent with an acoustic neuroma. Visualized intracra nial internal carotid arteries, distal vertebral arteries, and basilar artery are widely patent. Ther e is no significant stenosis, occlusion, or aneurysm seen within the bilateral ACAs, MCAs, or filer and sander. T he major dural venous sinuses are patent. Moderate calcified plaque within the bilateral carotid siph ons. The aortic arch and proximal great vessels are widely patent. There is no significant stenosis, occ lusion, or dissection identified within the bilateral common carotid, right internal carotid, or vert ebral arteries. Stable thyroid nodules with the largest on the right measuring 4 cm. Stable subcentim eter nodules within the lung apices measuring up to 4 mm. Mild calcified plaque within the right lee tid bifurcation. There is moderate atherosclerotic plaque within the left carotid bifurcation is a fo michael area of up to 90% stenosis within the proximal left internal carotid artery best seen on image 20 3. This has progressed in the interval. Remaining left internal carotid artery is patent. IMPRESSION: 1. No significant stenosis, occlusion, or aneurysm within the [place]. 2. There is a focal area of 90% stenosis within the proximal left internal carotid artery which has p rogressed in the interval. 3. No significant stenosis, occlusion, or dissection within the right carotid or vertebral arteries. 4. No change in the 2 cm right cerebellopontine angle lesion which likely represents an acoustic neur vidya. ACT 112: Negative or not required by law. Electronically signed by: Cali Reilly M.D. 08/16/2022 6:33 PM
--- NOTE | 2022-08-16 18:34 | CT Scan Report ---
HEAD & NECK CTA HISTORY: Slurred speech. neuro deficit, acute stroke suspected TECHNIQUE: Multiaxial CT images of the head were performed following the intravenous administration o f contrast to evaluate the major cerebral vessels. Multiaxial CT images of the neck were also perform ed following the intravenous administration of contrast to evaluate the major cervical vessels. Maxim um intensity projection images were also obtained. A dose lowering technique was utilized adhering to the principles of ALARA. COMPARISON: Head and neck CTA 02/17/2020. FINDINGS: Stable 2 cm right cerebellopontine angle cistern mass which appears to extend into the right internal internal auditory canal. Therefore, this is consistent with an acoustic neuroma. Visualized intracra nial internal carotid arteries, distal vertebral arteries, and basilar artery are widely patent. Ther e is no significant stenosis, occlusion, or aneurysm seen within the bilateral ACAs, MCAs, or marketing database coordinator. T he major dural venous sinuses are patent. Moderate calcified plaque within the bilateral carotid siph ons. The aortic arch and proximal great vessels are widely patent. There is no significant stenosis, occ lusion, or dissection identified within the bilateral common carotid, right internal carotid, or vert ebral arteries. Stable thyroid nodules with the largest on the right measuring 4 cm. Stable subcentim eter nodules within the lung apices measuring up to 4 mm. Mild calcified plaque within the right lee tid bifurcation. There is moderate atherosclerotic plaque within the left carotid bifurcation is a fo michael area of up to 90% stenosis within the proximal left internal carotid artery best seen on image 20 3. This has progressed in the interval. Remaining left internal carotid artery is patent. IMPRESSION: 1. No significant stenosis, occlusion, or aneurysm within the [place]. 2. There is a focal area of 90% stenosis within the proximal left internal carotid artery which has p rogressed in the interval. 3. No significant stenosis, occlusion, or dissection within the right carotid or vertebral arteries. 4. No change in the 2 cm right cerebellopontine angle lesion which likely represents an acoustic neur vidya. ACT 112: Negative or not required by law. Electronically signed by: Cali Reilly M.D. 08/16/2022 6:33 PM
--- NOTE | 2022-08-16 19:30 | History & Physical Report ---
Date of Service August 16, 2022 Assessment & Plan (1) Expressive aphasia: Plan: -Admit to med/tele -The patient is currently afebrile, hemodynamically stable, and stable on RA -Patient's last known well was approximately 48 hours ago, family called EMS this afternoon after speaking with her on the phone and noticing her expressive aphasia -CT of the head was negative for acute changes -CTA of the head and neck show 90% stenosis of the proximal left carotid artery but with patent BL vertebral arteries and right carotid artery -No signs of infection or metabolic abnormality to cause her symptoms, UA is in process -At this time the most likely etiologies of her expressive aphasia are stroke or progression of her Parkinson's disease and dementia -Will attempt to get an MRI of the brain WO con as she has a loop recorder but no pacemaker -TTE tomorrow -Patient is not on a statin, does have simvastatin listed as an allergy but no description, no explanation in previous cardiology notes, will hold overnight -Q6h neuro checks, fall/aspiration precautions, dysphagia screen ordered, for now will keep NPO on light IV hydration -PT/OT consults ordered, consider Neurology consult tomorrow for further evaluation if no obvious findings on the rest of her workup -Will consult vascular surgery for her left internal carotid stenosis -Monitor on tele -BL SCDs, home Xarelto and aspirin for DVT PPX -AM CBC, CMP, PT/INR, A1c, and lipid panel (2) Depression: Plan: -Continue prn ativan (3) A-fib: Plan: -Stable -Continue Xarelto (4) Parkinson's disease dementia: Plan: -Continue Carbidopa-Levodopa and amantadine (5) CHF (congestive heart failure): Plan: -Examines euvolemic, continue to monitor volume status (6) Diabetes type 2, uncontrolled: Plan: -Removed insulin pump for now due to her NPO status -Monitor BSG q6h while NPO, goal is 110-140 -5 units lantus BID, correction factor of 50, carb ratio of 15 -Adjust regimen as needed (7) Hypertension: Plan: -Stable -Continue to monitor Plan The patient was discussed with Dr. Meza at the time of the admission History of Present Illness Chief Complaint: TIA symptoms Primary Care Provider: Damaris Vega MD 76yo female with PMH of Parkinson's disease with dementia, paroxysmal afib (on xarelto), DM2 with neuropathy, anxiety/depression, HFpEF (LVEF of 60-65% as of 02/17/20), dyslipidemia, and HTN who presented to the [facility] ED on 08/16/22 due to concerns for possible slurred speech. Per the ED staff, the patient's Daughter spoke with her earlier today and was concerned that her speech was slurred, she called EMS. In the ED the patient was found to be afebrile, hemodynamically stable, and stable on RA. Labs were remarkable for a CBC WNL, stable cr at 0.75, stable electrolytes, glucose of 178, total bili of 1.3 (improved from 2.2 as of 05/22/22), otherwise LFT's WNL, and covid negative. CT of the head was read as "No significant change compared to the prior study. No acute intracranial abnormality. Stable right cerebellopontine angle cistern lesion suggestive of an acoustic neuroma.". CTA of the head and neck were read as "1. No significant stenosis, occlusion, or aneurysm within the [place]. 2. There is a focal area of 90% stenosis within the proximal left internal carotid artery which has progressed in the interval. 3. No significant stenosis, occlusion, or dissection within the right carotid or vertebral arteries. 4. No change in the 2 cm right cerebellopontine angle lesion which likely represents an acoustic neuroma.". The patient was not a TNK candidate as she is already on Xarelto and her last known well was unknown. AT the time of the exam the patient was lying in bed in no acute distress. History was difficult to obtain due to the patient's expressive aphasia. At times she will be able to communicate effectively with fluent speech and answering questions appropriately. When asked why she was brought to the hospital she was able to communicate that she is having issues with her speech. When asked what time her speech issues started she tells me "this afternoon". She currently has no other complaints but is very anxious as she knows this is not her baseline. While examining her I was able to find her insulin pump, this was removed as we will be controlling her insulin with basal/bolus while she is NPO. I was able to call and speak with her Son/POA (Morgan Ramirez [phone]), who was able to provide a detailed history. He states that at baseline the patient currently lives alone and is able to complete the majority of her ADLs including cooking and controlling her medications. She does have a relative that comes to the house 5 days a week. Her Son states that he is in contact with his mother daily, either in person, speaking on the phone, or texting. He states that he last saw the patient 2 days ago and she was in her normal state of health. At baseline she does not have issues with speaking or getting her words out. He texted with her yesterday and she was responding appropriately. Earlier this afternoon the patient's Granddaughter called and spoke with her on the phone. She immediately became concerned as the patient was not making sense and her Granddaughter could not understand her. This is when EMS was contacted. Her Son confirms that the patient is still still on Xarelto and has a loop recorder for her Afib. We discussed bill[place] status, he confirms that the patient has a living will and is a DNR/DNI. Please refer to Dr. Meza's attestation for any changes to the treatment plan Allergies Allergy/AdvReac Type Severity Reaction Status Date / Time benztropine Allergy Unknown PT NOT SURE Verified 08/16/22 19:20 citalopram Allergy Unknown PT NOT SURE Verified 08/16/22 19:20 doxycycline Allergy Unknown REMOTE HX, Verified 08/16/22 19:20 PT NOT SURE REACTION minocycline Allergy Unknown REMOTE HX, Verified 08/16/22 19:20 PT NOT SURE REACTION simvastatin Allergy Unknown PT NOT SURE Verified 08/16/22 19:20 sulindac Allergy Unknown PT NOT SURE Verified 08/16/22 19:20 empagliflozin AdvReac Intermediate Recurrent Verified 08/16/22 19:20 [From Jardiance] Urinary Tract Infection Home Medications Medication Instructions Recorded Confirmed Type aspirin 81 mg tablet,delayed 81 mg PO HS 01/19/19 08/16/22 History release (Yariel Low Dose Aspirin) lorazepam 0.5 mg tablet 0.5 mg PO BID PRN Anxiety 11/08/19 08/16/22 History rivaroxaban 20 mg tablet (Xarelto) 20 mg PO QPM 11/08/19 08/16/22 History carbidopa 25 mg-levodopa 100 mg 2 tab PO QID 02/07/20 08/16/22 History tablet flash glucose sensor (FreeStyle #1 ea 09/02/20 07/21/22 History Ruben 2 Sensor kit) gabapentin 300 mg capsule 300 mg PO BID 10/15/21 08/16/22 History amantadine HCl 100 mg capsule 100 mg PO AMHS 01/13/22 08/16/22 History blood sugar diagnostic (OneTouch #10 ea 01/13/22 07/21/22 History Verio test strips) cetirizine 10 mg tablet (Zyrtec) 10 mg PO DAILY PRN Allergy Symptoms 01/13/22 08/16/22 History insulin aspart U-100 100 unit/mL See Rx Instructions .Route 06/03/22 08/16/22 Rx subcutaneous solution (Novolog .COMPLEX #0 mL U-100 Insulin aspart) Past Med/Surg History Medical History Acoustic neuroma FOLLOWS DR MITCHELL - UPCOMING RADIATION TREATMENT AFTER CATARACT SURGERY Anxiety Chronic heart failure Complicated migraine "COMPLICATED MIGRAINES" - OCCUR OFTEN AND RESEMBLE SYMPTOMS OF A STROKE PER PT Diabetes INSULIN PUMP DVT prophylaxis GERD (gastroesophageal reflux disease) HX History of colon polyps History of high cholesterol History of TIA (transient ischemic attack) 2004 ,HX PT FOR, NO REMAINING RESIDUAL EFFECTS Hypertension HX BLOOD PRESSURE MEDICINE, ONCE A FIB DX - MED WAS D/C'D - PT REPORTS BLOOD PRESSURE USUALLY RUNS LOW AROUND 106/58 Mitral valve disorder DENIES Obesity Parkinson disease Permanent atrial fibrillation DX 2 YR AGO, NO HX CARDIOVERSION Surgical History H/O breast biopsy 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 History of left knee replacement S/P appendectomy HX S/P cholecystectomy HX Family History Mother Diabetes Congestive heart failure Colorectal cancer Hypertension Brother Congestive heart failure Colorectal cancer Sister Cancer Unknown Pancreatic cancer Son Family history of colonic polyps Social History Smoking Status: Never smoker Second Hand Exposure: No; Do You Dip or Chew Tobacco: No; Hx Alcohol Use: No Hx Substance Use: No Preferred Language: Syriac Communication Ability: Impaired Visual Impairment: No Limitations Outsole Splicer Required: No Beliefs That Will Affect Care: None marital status: Unknown Current Living Situation: Family Current Living Situation Comment: condo How many Children do You have: 2 Other Information That Helps Us Care for You: No Feels Safe at Home: Yes Safety Concerns: Feels Safe At This Time Assistive Devices: Walker Review of Systems Review of Systems: Denies current fever, chills, headache, changes in vision, hearing, taste, and smell, chest pain, SOB, cough, abdominal pain, nausea, vomiting, diarrhea, hematemesis, melena, dysuria, hematuria, and recent falls. All systems have been reviewed and are otherwise negative. Physical Exam Physical Exam: Physical Exam: General: The patient is currently anxious due to her neurologic changes, a ppears well nourished, good hygiene, non-toxic appearing HEENT: Normocephalic, atraumatic, no scleral icterus, pupils around round, symmetrical, and reactive to light, dry mucus membranes, trachea midline, no thyromegaly Chest/Pulm: No respiratory distress, symmetrical chest expansion, clear breath sounds throughout Cardiac: irregular rate and rhythm, no murmurs noted Abdomen: Negative for ascites and bruising, insulin pump initially inserted in the epigastric region, normoactive bowel sounds, soft, non-tender to palpation throughout Musculoskeletal: Symmetrical and without signs of acute trauma, upper and lower extremities with full ROM, no atrophy, spasticity, or flaccidity Extremities: Radial, dorsalis pedis, and posterior tibial pulses are intact and symmetrical, no edema noted in the BL LE's Skin: Warm, dry, no rashes , lesions, or scars noted Neuro: Alert and oriented to person only, patient currently with expressive aphasia, CN II-XII tested and intact, negative pronator drift, baseline tremor noted Psych: Anxious but polite and cooperative during the exam Results & Data Results & Data ([facility]) Vital Signs (Past 12 Hours) Vital Signs Temp Pulse Pulse Resp BP BP Pulse Ox 08/16/22 18:12 80 18 170/94 H 98 08/16/22 17:08 75 20 141/72 H 98 08/16/22 16:38 77 08/16/22 16:29 36.8 C 79 15 166/72 H 98 O2 Del Method 08/16/22 18:12 Room Air 08/16/22 17:08 Room Air 08/16/22 16:38 08/16/22 16:29 Room Air Laboratory Results Abnormal lab results 08/16/22 08/16/22 08/16/22 Range/Units 16:37 16:39 16:39 Lymph # (Auto) 0.84 L (1.2-3.4) K/uL POC BUN (7-18) mg/dl BUN 24 H (6-23) mg/dl BUN/Creatinine Ratio 32.0 H (10-20) Glucose 193 H (70-99(Fasting)) mg/dl POC Glucose 178 H (70-99) mg/dl POC Glucose (other) (70-99) mg/dl Total Bilirubin 1.3 H (0.2-1.0) mg/dl ALT 5 L (7-52) U/L 08/16/22 Range/Units 16:46 Lymph # (Auto) (1.2-3.4) K/uL POC BUN 25 H (7-18) mg/dl BUN (6-23) mg/dl BUN/Creatinine Ratio (10-20) Glucose (70-99(Fasting)) mg/dl POC Glucose (70-99) mg/dl POC Glucose (other) 191 H (70-99) mg/dl Total Bilirubin (0.2-1.0) mg/dl ALT (7-52) U/L Diagnostic Findings Head CT 08/16/22 16:[address] DOSE: HISTORY: Slurred speech. neuro deficit, acute stroke suspected TECHNIQUE: Multiaxial CT images of the head were performed without the use of intravenous contrast. Automated exposure control was utilized for this study. A dose lowering technique was utilized adhering to the principles of ALARA. Comparison: Head CT 06/23/2022. Findings: The paranasal sinuses and mastoid air cells are clear. The calvarium and skull base are intact. There is no hematoma, midline shift, acute infarct. White matter hypodensity is nonspecific but suggestive of microvascular ischemic change. The ventricles and sulci demonstrate mild age-related involutional changes. Postoperative changes again noted within the left globe. Stable right cerebellopontine angle cistern lesion suggestive of an acoustic neuroma. Impression: No significant change compared to the prior study. No acute intracranial abnormality. Stable right cerebellopontine angle cistern lesion suggestive of an acoustic neuroma. ACT 112: Negative or not required by law. Electronically signed by: Cali Reilly M.D. 08/16/2022 6:25 PM Head CTA 08/16/22 16:53 HEAD & NECK CTA HISTORY: Slurred speech. neuro deficit, acute stroke suspected TECHNIQUE: Multiaxial CT images of the head were performed following the intravenous administration of contrast to evaluate the major cerebral vessels. Multiaxial CT images of the neck were also performed following the intravenous administration of contrast to evaluate the major cervical vessels. Maximum intensity projection images were also obtained. A dose lowering technique was utilized adhering to the principles of ALARA. COMPARISON: Head and neck CTA 02/17/2020. FINDINGS: Stable 2 cm right cerebellopontine angle cistern mass which appears to extend into the right internal internal auditory canal. Therefore, this is consistent with an acoustic neuroma. Visualized intracranial internal carotid arteries, distal vertebral arteries, and basilar artery are widely patent. There is no significant stenosis, occlusion, or aneurysm seen within the bilateral ACAs, MCAs, or citrix architect. The major dural venous sinuses are patent. Moderate calcified plaque within the bilateral carotid siphons. The aortic arch and proximal great vessels are widely patent. There is no significant stenosis, occlusion, or dissection identified within the bilateral common carotid, right internal carotid, or vertebral arteries. Stable thyroid nodules with the largest on the right measuring 4 cm. Stable subcentimeter nodules within the lung apices measuring up to 4 mm. Mild calcified plaque within the right carotid bifurcation. There is moderate atherosclerotic plaque within the left carotid bifurcation is a focal area of up to 90% stenosis within the proximal left internal carotid artery best seen on image 203. This has progressed in the interval. Remaining left internal carotid artery is patent. IMPRESSION: 1. No significant stenosis, occlusion, or aneurysm within the [place]. 2. There is a focal area of 90% stenosis within the proximal left internal carotid artery which has progressed in the interval. 3. No significant stenosis, occlusion, or dissection within the right carotid or vertebral arteries. 4. No change in the 2 cm right cerebellopontine angle lesion which likely represents an acoustic neuroma. ACT 112: Negative or not required by law. Electronically signed by: Cali Reilly M.D. 08/16/2022 6:33 PM Neck CTA 08/16/22 16:53 HEAD & NECK CTA HISTORY: Slurred speech. neuro deficit, acute stroke suspected TECHNIQUE: Multiaxial CT images of the head were performed following the intravenous administration of contrast to evaluate the major cerebral vessels. Multiaxial CT images of the neck were also performed following the intravenous administration of contrast to evaluate the major cervical vessels. Maximum intensity projection images were also obtained. A dose lowering technique was utilized adhering to the principles of ALARA. COMPARISON: Head and neck CTA 02/17/2020. FINDINGS: Stable 2 cm right cerebellopontine angle cistern mass which appears to extend into the right internal internal auditory canal. Therefore, this is consistent with an acoustic neuroma. Visualized intracranial internal carotid arteries, distal vertebral arteries, and basilar artery are widely patent. There is no significant stenosis, occlusion, or aneurysm seen within the bilateral ACAs, MCAs, or citrix architect. The major dural venous sinuses are patent. Moderate calcified plaque within the bilateral carotid siphons. The aortic arch and proximal great vessels are widely patent. There is no significant stenosis, occlusion, or dissection identified within the bilateral common carotid, right internal carotid, or vertebral arteries. Stable thyroid nodules with the largest on the right measuring 4 cm. Stable subcentimeter nodules within the lung apices measuring up to 4 mm. Mild calcified plaque within the right carotid bifurcation. There is moderate atherosclerotic plaque within the left carotid bifurcation is a focal area of up to 90% stenosis within the proximal left internal carotid artery best seen on image 203. This has progressed in the interval. Remaining left internal carotid artery is patent. IMPRESSION: 1. No significant stenosis, occlusion, or aneurysm within the [place]. 2. There is a focal area of 90% stenosis within the proximal left internal car otid artery which has progressed in the interval. 3. No significant stenosis, occlusion, or dissection within the right carotid or vertebral arteries. 4. No change in the 2 cm right cerebellopontine angle lesion which likely represents an acoustic neuroma. ACT 112: Negative or not required by law. Electronically signed by: Cali Reilly M.D. 08/16/2022 6:33 PM ECG Additional Comments: Poor data quality, interpretation may be adversely affected Atrial fibrillation Left anterior fascicular block Anterior infarct , age undetermined Abnormal ECG When compared with ECG of 26-MAY-2022 06:02, No significant change was found Code Status & VTE Plan Code Status DNR/DNI VTE Prophylaxis Plan VTE Prophylaxis will be ordered: Yes Supervising Physician Co-Signing Physician Notes Patient seen ad examined, chart reviewed, case discussed with SUNDAY Mendez and I agree with the assessment and plan as above PG Care Time/CCT Total # of Minutes Spent Total Time Spent with Patient: Total time spent is greater than 50% in coordination of care (as documented) at patient's floor/unit and/or counseling patient: Coding [place] [address] INT INP/OBS CARE 3/75MIN Patient Type Established Medical Decision Making High Complexity Diagnoses Expressive aphasia R47.01 Depression F32.A A-fib I48.91 Parkinson's disease dementia G20; F02.80 CHF (congestive heart failure) I50.9 Diabetes type 2, uncontrolled E11.65 Hypertension I10
[2022-08-16] MEDS ORDERED: PHARMACIST DISCHARGE MED REC CONSULT PRN (19:51)
[2022-08-16] MEDS ORDERED: CARBOHYDRATES FOR HYPOGLYCEMIA PO PRN (19:53)
[2022-08-16] MEDS ORDERED: GLUCOSE 40% GEL 15 GM TUBE PO PRN (19:53)
[2022-08-16] MEDS ORDERED: DEXTROSE 50% 50 ML SYRINGE IV PRN (19:53)
[2022-08-16] MEDS ORDERED: GLUCAGON FOR INJ 1 MG VIAL SQ PRN (19:53)
[2022-08-16] MEDS ORDERED: GLUCOSE 10 TAB/TUBE PO PRN (19:53)
[2022-08-16] MEDS ORDERED: INSULIN ASPART PER UNIT SC SCH ×2 (20:30→21:00)
[2022-08-16 21:34] LABS: Appearance Urine Cloudy (Clear); Bacteria Urine Automated Negative (Negative); Bilirubin Urine Negative (Negative); Blood Urine Negative (Negative); Color Urine Yellow; Epithelial Cell Urine Auto >30 /lpf (0-5); Glucose Urine UA 1+ (Negative); Ketones Urine Trace (Negative); Leukocyte Esterase Urine Trace (Negative); Nitrite Urine Negative (Negative); Protein Urine Negative (Negative); Specific Gravity Urine > 1.045 (1.000-1.030); Urobilinogen Urine Negative (Negative); pH Urine 5.5 (4.5-7.5)
[2022-08-16 21:44] LABS: Calcium Oxalate Crystals Urine Present (None Prsent); RBC Urine Automated 0-4 /hpf (0-4)
[2022-08-16] MEDS: LACTATED RINGER'S 1,000 ML IV SCH (21:51)
[2022-08-16] MEDS: ATORVASTATIN 40 MG TAB PO SCH (22:37)
[2022-08-16] MEDS: CARBIDOPA/LEVODOPA 25/100MG TAB PO SCH (22:37)
[2022-08-16] MEDS: AMANTADINE HCL 100 MG CAPSULE PO SCH (22:37)
[2022-08-16] MEDS: ASPIRIN 81 MG ECTAB PO SCH (22:37)
[2022-08-16] MEDS: LANTUS PER UNIT CHARGE SQ SCH (22:38)
[2022-08-16] MEDS: RIVAROXABAN 20 MG TAB PO SCH (22:38)
[2022-08-16] MEDS: GABAPENTIN 300 MG CAP PO SCH (22:38)
[2022-08-16] MEDS: LORazepam 0.5 MG TAB PO PRN (22:56)
--- NOTE | 2022-08-17 07:48 | Magnetic Resonance Report ---
MRI OF THE BRAIN WITHOUT CONTRAST CLINICAL HISTORY: Stroke work up. Expressive aphasia. COMPARISON STUDY: Head CT and CTA of the head August 16, 2022. MRI of the brain February 17, 2020. TECHNIQUE: Utilizing a 1.5 Rosemarie magnet and dedicated coil, multiplanar, multiecho imaging of the bra in was performed without IV contrast. FINDINGS: There is a focus of restricted diffusion within the cortex of the left frontal lobe which e xtends for 2.6 cm. This represents an acute infarct. This is hypointense on the ADC map. There is no mass effect. There is no evidence for hemorrhagic conversion. A focus of increased signal intensity w ithin the left occipital lobe on the diffusion-weighted sequence is probably artifactual. An addition al small infarct would be difficult to exclude. Ventricular system is unremarkable. Basal cisterns ar e patent. A 2 cm right cerebellopontine angle mass is similar to prior MRI on this unenhanced examina tion. No additional intracranial masses are present. Calvarial signal is within normal limits. This s tudy is mildly compromised by motion artifact. White matter T2 hyperintense foci suggest small vessel disease. IMPRESSION: 1. Acute infarct within the cortex of the left frontal lobe, as described above. No mass effect. No e vidence for hemorrhage. 2. Equivocal additional acute infarct within left occipital lobe which is probably artifactual. 3. 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 ACT 112: Negative or not required by law. Electronically signed by: Subhash Pearl M.D. 08/17/2022 7:45 AM
[2022-08-17] MEDS: INSULIN ASPART PER UNIT SC SCH ×4 (08:50→21:25)
[2022-08-17] MEDS: LANTUS PER UNIT CHARGE SQ SCH ×2 (08:51→21:25)
[2022-08-17] MEDS: GABAPENTIN 300 MG CAP PO SCH ×2 (08:54→20:20)
[2022-08-17] MEDS: AMANTADINE HCL 100 MG CAPSULE PO SCH ×2 (08:54→20:19)
[2022-08-17] MEDS: CARBIDOPA/LEVODOPA 25/100MG TAB PO SCH ×4 (08:54→20:19)
[2022-08-17] MEDS: ATORVASTATIN 40 MG TAB PO SCH (08:55)
[2022-08-17 09:17] LABS: Basophils # (auto) 0.03 K/uL (0-0.2); Basophils % (auto) 0.6 %; Eosinophils # (auto) 0.14 K/uL (0-0.50); Eosinophils % (auto) 2.6 %; Immature Granulocytes # (auto) 0.02 K/uL (0.01-0.20); Immature Granulocytes % (auto) 0.4 %; Lymphocytes # (auto) 1.14 K/uL (1.2-3.4); Lymphocytes % (auto) 21.4 %; Mean Corpuscular Hemoglobin 29.8 pg (25.0-34.0); Mean Corpuscular Hgb Conc 34.1 g/dL (32.0-36.0); Mean Corpuscular Volume 87.2 fL (80.0-100.0); Mean Platelet Volume 10.9 fL (9.4-12.4); Monocytes # (auto) 0.49 K/uL (0.11-0.59); Monocytes % (auto) 9.2 %; Neutrophils % (auto) 65.8 %; Platelet Count 184 K/uL (130-400); RDW Coefficient of Variation 14.4 % (11.5-14.5); RDW Standard Deviation 45.8 fL (36.4-46.3); White Blood Count 5.32 K/ul (4.8-10.8)
--- NOTE | 2022-08-17 09:45 | Consultation ---
Date of Consultation August 17, 2022 Assessment & Plan (1) Symptomatic stenosis of left carotid artery: Pt with symptomatic L ICA stenosis of over 90%. Pt also seen by Dr Jay today. Recommends pt consider L TCAR procedure. Pt states her son signs her forms for her. Will attempt to discuss with him by phone. Pt is agreeable to this. Patient was seen, examined, and chart reviewed. Agree with exam and treatment plan of the Vascular PA. Thank you very much for letting us participate in the care of this patient. History of Present Illness Reason for Consultation: Juan C CHAN CVA Attending Physician: Selene Bridges MD History of Present Illness 77 yo f with hx of parkinson's disease, a fib on xarelto, DMII, CHF, peripheral neuropathy, diabetic retinopathy, admitted after her family noted expressive aphasia on the phone yesterday, seen in consultation today for L ICA stenosis noted on CTA neck. Pt states no prior similar sx. States she lives alone, but does have family that checks on her frequently. She is a fair historian despite her dx of parkinson's dementia. Pt admits adrien horse cramps in bed at night. Denies LOYA, fever, chest pain, palpitations, abd pain, N/V, recent illness, rest pain, claudication, other complaints. No prior knowledge of the carotid stenosis, ore previous CVA in past. CTA neck demonstrates over 90% stenosis of L ICA. MRI brain demonstrates L hemispheric CVA. Allergies Allergy/AdvReac Type Severity Reaction Status Date / Time benztropine Allergy Unknown PT NOT SURE Verified 08/16/22 19:20 citalopram Allergy Unknown PT NOT SURE Verified 08/16/22 19:20 doxycycline Allergy Unknown REMOTE HX, Verified 08/16/22 19:20 PT NOT SURE REACTION minocycline Allergy Unknown REMOTE HX, Verified 08/16/22 19:20 PT NOT SURE REACTION simvastatin Allergy Unknown PT NOT SURE Verified 08/16/22 19:20 sulindac Allergy Unknown PT NOT SURE Verified 08/16/22 19:20 empagliflozin AdvReac Intermediate Recurrent Verified 08/16/22 19:20 [From Jardiance] Urinary Tract Infection Home Medications Medication Instructions Recorded Confirmed Type aspirin 81 mg tablet,delayed 81 mg PO HS 01/19/19 08/16/22 History release (Yariel Low Dose Aspirin) lorazepam 0.5 mg tablet 0.5 mg PO BID PRN Anxiety 11/08/19 08/16/22 History rivaroxaban 20 mg tablet (Xarelto) 20 mg PO QPM 11/08/19 08/16/22 History carbidopa 25 mg-levodopa 100 mg 2 tab PO QID 02/07/20 08/16/22 History tablet flash glucose sensor (FreeStyle #1 ea 09/02/20 07/21/22 History Ruben 2 Sensor kit) gabapentin 300 mg capsule 300 mg PO BID 10/15/21 08/16/22 History amantadine HCl 100 mg capsule 100 mg PO AMHS 01/13/22 08/16/22 History blood sugar diagnostic (OneTouch #10 ea 01/13/22 07/21/22 History Verio test strips) cetirizine 10 mg tablet (Zyrtec) 10 mg PO DAILY PRN Allergy Symptoms 01/13/22 08/16/22 History insulin aspart U-100 100 unit/mL See Rx Instructions .Route 06/03/22 08/16/22 Rx subcutaneous solution (Novolog .COMPLEX #0 mL U-100 Insulin aspart) Patient History Medical History (Updated 08/17/22 @ 09:43 by Gianna Diamond PA-C) Acoustic neuroma FOLLOWS DR MITCHELL - UPCOMING RADIATION TREATMENT AFTER CATARACT SURGERY Anxiety Chronic heart failure Complicated migraine "COMPLICATED MIGRAINES" - OCCUR OFTEN AND RESEMBLE SYMPTOMS OF A STROKE PER PT Diabetes INSULIN PUMP DVT prophylaxis GERD (gastroesophageal reflux disease) HX History of colon polyps History of high cholesterol History of TIA (transient ischemic attack) 2004 ,HX PT FOR, NO REMAINING RESIDUAL EFFECTS Hypertension HX BLOOD PRESSURE MEDICINE, ONCE A FIB DX - MED WAS D/C'D - PT REPORTS BLOOD PRESSURE USUALLY RUNS LOW AROUND 106/58 Mitral valve disorder DENIES Obesity Parkinson disease Permanent atrial fibrillation DX 2 YR AGO, NO HX CARDIOVERSION Symptomatic stenosis of left carotid artery Surgical History H/O breast biopsy 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 History of left knee replacement S/P appendectomy HX S/P cholecystectomy HX Family History Mother Diabetes Congestive heart failure Colorectal cancer Hypertension Brother Congestive heart failure Colorectal cancer Sister Cancer Unknown Pancreatic cancer Son Family history of colonic polyps Social History Smoking Status: Never smoker Second Hand Exposure: No; Do You Dip or Chew Tobacco: No; Hx Alcohol Use: No Hx Substance Use: No Preferred Language: Mongolian Communication Ability: Impaired Visual Impairment: No Limitations Electronic Drafter Required: No Beliefs That Will Affect Care: None marital status: Unknown Current Living Situation: Family Current Living Situation Comment: condo How many Children do You have: 2 Other Information That Helps Us Care for You: No Feels Safe at Home: Yes Safety Concerns: Feels Safe At This Time Assistive Devices: Walker Review of Systems Review of Systems: All systems reviewed & are unremarkable except as noted in HPI & below Physical Exam Constitutional: WD/WN, vitals as above well developed, + thin, cooperative and comfortable; not in distress ENMT: Ears: + hearing impairment (R ear) Neck: trachea midline Respiratory: normal respiratory effort Auscultation: lungs clear to auscultation bilaterally and + diminished lung sounds Cardiovascular: Rate/Rhythm: regular rate and regular rhythm Vessels: posterior tibial pulses present (+1 LLE, nonpalpable RLE), dorsalis pedis pulses present (+1 LLE, nonpalpable RLE) and radial pulses present; + abnormal peripheral pulses Extremities: normal capillary refill; no edema Gastrointestinal (Abdomen): Inspection/Auscultation: abdomen normal to inspection and normal bowel sounds Percussion/Palpation: abdomen soft; abdomen nontender Musculoskeletal: no cyanosis or clubbing, extremities motor strength 5/5 Skin: no rashes, warm and dry Neurologic: moves all extremities and awake; no focal motor deficits (prior aphasia appears improved/resolved) and not confused Speech / Cognition: normal speech Psychiatric: A+Ox3, euthymic affect Results & Data ([facility]) Vital Signs (Past 12 Hours) Vital Signs Temp Pulse Pulse Pulse Resp BP Pulse Ox 08/17/22 08:29 36.6 C 75 17 144/78 H 98 08/17/22 07:25 66 08/17/22 03:25 36.9 C 72 16 121/72 94 08/16/22 23:25 36.9 C 79 18 177/91 H 98 08/16/22 21:40 O2 Del Method 08/17/22 08:29 Room Air 08/17/22 07:25 08/17/22 03:25 Room Air 08/16/22 23:25 Room Air 08/16/22 21:40 Room Air
[2022-08-17 09:50] LABS: Albumin Globulin Ratio 1.5 (0.9-2); Albumin Level 3.7 gm/dl (3.4-5.0); BUN Creatinine Ratio 31.1 (10-20); Bilirubin,Total 1.6 mg/dl (0.2-1.0); Calcium 9.3 mg/dl (8.5-10.1); Chol HDL Ratio 2.7 (0-5); Creatinine Clr Calc Pharmacy 81.3 ml/min; Est GFR (African American) 102.1 ml/min; Est GFR (Non-African American) 88.1 ml/min; Globulin 2.5 gm/dl (2.5-4.0); Potassium 3.9 mmol/L (3.5-5.1); Total Protein 6.2 gm/dl (6.0-8.3)
[2022-08-17 09:51] LABS: INR 1.3 (0.9-1.1); Prothrombin Time 13.7 Seconds (9.0-12.0)
[2022-08-17] MEDS: LACTATED RINGER'S 1,000 ML IV SCH (10:16)
[2022-08-17 10:44] LABS: Estimated Average Glucose 160 mg/dl; Hemoglobin A1C 7.2 % (4.5-5.6)
--- NOTE | 2022-08-17 10:45 | Neurology Consultation ---
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 Patient is already been seen by vascular surgery. I agree with recommendation for left TCAR procedure. Continue with atorvastatin, daily low-dose aspirin, Xarelto. Timing of vascular procedure per Dr. Jay. Continue medical management of blood pressure, may allow for permissive hypertension acutely, systolic blood pressure 140 to 160 mmHg. Patient should continue with carbidopa levodopa and amantadine for management of her Parkinson's disease. Patient should continue with gabapentin for diabetic peripheral neuropathy pain. No intervention is needed for the stable right vestibular schwannoma at this time. Patient should follow-up with local [facility] neurology for her Parkinson's and diabetic peripheral neuropathy as an outpatient. History of Present Illness Reason for Consultation: Stroke Requesting Physician: Dr. Bridges Attending Physician: Selene Bridges MD History of Present Illness The patient is a 77-year-old female who presented to the emergency department yesterday with a chief complaint of acute change in speech, word finding difficulty, but without other associated acute neurologic symptoms. She does have a history of Parkinson's disease for which she has been following with the local [facility] neurology group. History also notable for a stable right acoustic neuroma and associated hearing loss. She did have a brain MRI completed that revealed an acute infarct within the left frontal lobe as well as a possible acute infarct within the left occipital parietal region, possibly artifactual. She has a stable 2 cm right cerebellopontine angle vestibular schwannoma. A CT angiogram of the head and neck revealed a focal 90% stenosis within the proximal left internal carotid artery, progressive compared with last CTA done in 2019. I did independently review these images and was able to appreciate these findings as described by the interpreting radiologist. History also notable for atrial fibrillation for which she has been on Xarelto. She has been seen by vascular surgery regarding the left internal carotid artery stenosis. The lesion is felt to be symptomatic based on distribution of her infarct. Recommendation is for left TCAR procedure. Past medical history is also notable for diabetic peripheral neuropathy. Allergies Allergy/AdvReac Type Severity Reaction Status Date / Time benztropine Allergy Unknown PT NOT SURE Verified 08/16/22 19:20 citalopram Allergy Unknown PT NOT SURE Verified 08/16/22 19:20 doxycycline Allergy Unknown REMOTE HX, Verified 08/16/22 19:20 PT NOT SURE REACTION minocycline Allergy Unknown REMOTE HX, Verified 08/16/22 19:20 PT NOT SURE REACTION simvastatin Allergy Unknown PT NOT SURE Verified 08/16/22 19:20 sulindac Allergy Unknown PT NOT SURE Verified 08/16/22 19:20 empagliflozin AdvReac Intermediate Recurrent Verified 08/16/22 19:20 [From Jardiance] Urinary Tract Infection Home Medications Medication Instructions Recorded Confirmed Type aspirin 81 mg tablet,delayed 81 mg PO HS 01/19/19 08/16/22 History release (Yariel Low Dose Aspirin) lorazepam 0.5 mg tablet 0.5 mg PO BID PRN Anxiety 11/08/19 08/16/22 History rivaroxaban 20 mg tablet (Xarelto) 20 mg PO QPM 11/08/19 08/16/22 History carbidopa 25 mg-levodopa 100 mg 2 tab PO QID 02/07/20 08/16/22 History tablet flash glucose sensor (FreeStyle #1 ea 09/02/20 07/21/22 History Ruben 2 Sensor kit) gabapentin 300 mg capsule 300 mg PO BID 10/15/21 08/16/22 History amantadine HCl 100 mg capsule 100 mg PO AMHS 01/13/22 08/16/22 History blood sugar diagnostic (OneTouch #10 ea 01/13/22 07/21/22 History Verio test strips) cetirizine 10 mg tablet (Zyrtec) 10 mg PO DAILY PRN Allergy Symptoms 01/13/22 08/16/22 History insulin aspart U-100 100 unit/mL See Rx Instructions .Route 06/03/22 08/16/22 Rx subcutaneous solution (Novolog .COMPLEX #0 mL U-100 Insulin aspart) Patient History Medical History (Updated 08/17/22 @ 09:43 by Gianna D. Minarchick, PA-C) Acoustic neuroma FOLLOWS DR MATEER - UPCOMING RADIATION TREATMENT AFTER CATARACT SURGERY Anxiety Chronic heart failure Complicated migraine "COMPLICATED MIGRAINES" - OCCUR OFTEN AND RESEMBLE SYMPTOMS OF A STROKE PER PT Diabetes INSULIN PUMP DVT prophylaxis GERD (gastroesophageal reflux disease) HX History of colon polyps History of high cholesterol History of TIA (transient ischemic attack) 2004 ,HX PT FOR, NO REMAINING RESIDUAL EFFECTS Hypertension HX BLOOD PRESSURE MEDICINE, ONCE A FIB DX - MED WAS D/C'D - PT REPORTS BLOOD PRESSURE USUALLY RUNS LOW AROUND 106/58 Mitral valve disorder DENIES Obesity Parkinson disease Permanent atrial fibrillation DX 2 YR AGO, NO HX CARDIOVERSION Symptomatic stenosis of left carotid artery Surgical History H/O breast biopsy 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 History of left knee replacement S/P appendectomy HX S/P cholecystectomy HX Family History Mother Diabetes Congestive heart failure Colorectal cancer Hypertension Brother Congestive heart failure Colorectal cancer Sister Cancer Unknown Pancreatic cancer Son Family history of colonic polyps Social History Smoking Status: Never smoker Second Hand Exposure: No; Do You Dip or Chew Tobacco: No; Hx Alcohol Use: No Hx Substance Use: No Preferred Language: Qatari Communication Ability: Impaired Visual Impairment: No Limitations Stockbroking Dealer Required: No Beliefs That Will Affect Care: None marital status: Unknown Current Living Situation: Family Current Living Situation Comment: condo How many Children do You have: 2 Other Information That Helps Us Care for You: No Feels Safe at Home: Yes Safety Concerns: Feels Safe At This Time Assistive Devices: Walker Review of Systems Constitutional: no fever and no chills Eyes: no blind spots and no diplopia Ear, Nose, Mouth, Throat: as per Subjective / HPI and + hearing loss (right) Respiratory: no cough and no dyspnea Cardiovascular: no chest pain and no palpitations Gastrointestinal: no nausea and no vomiting Genitourinary: no urinary incontinence Musculoskeletal: no back pain, no neck pain and no myalgia Integumentary: no rash and no lesions Neurologic: as per Subjective / HPI Psychiatric: no depression and no anxiety Hematologic / Lymphatic: no easy bleeding and no easy bruising Exam (Neuro) Constitutional: well developed and well nourished; no acute distress Eyes: normal visual godoy by confrontation, PERRL, normal accommodation and EOM intact bilaterally; no fundoscopic abnormality, no nystagmus and no papilledema Cardiovascular: Vessels: normal carotid upstroke; no carotid bruit Neurologic: Oriented to:: Person, Place and Time Memory: Short Term Intact and Remote Intact Attention: Span Intact and Concentration Intact Language: Repeating Phrases; negative Naming Objects Speech Fluency: Dysfluency; negative Dysarthria Speech Aphasia: Aphasia (mild expressive aphasia) Fund of Knowledge: Current Events, Past History and Vocabulary Cranial Nerves: Normal II (Visual godoy full to confrontation, visual acuity normal), III, IV, (Pupils equal round reactive to light and accommodation, eye movements normal), V (Facial sensation intact), VII (There is no facial droop or weakness), VIII (Hearing intact), IX, X (Palate elevates to midline), XI (Shoulder shrug intact) and XII (Tongue protrudes to midline) Motor Strength: Normal Lower Extremities and Normal Upper Extremities; negative Pronator Drift Motor Tone: Normal Lower Extremities and Normal Upper Extremities Muscle Bulk/Involuntary Movements: Pill Rolling Tremor; negative Muscle Atrophy Sensation: Light Touch Intact and Proprioception Intact; negative Pain/Temperature Intact or Vibration Intact Coordination: Normal; negative Limited Balance, Dysdiadochokinesia, Finger-Nose Abnormal or Heel-Ellington Abnormal Deep Tendon Reflexes: Rt Triceps: 1+, Lt Triceps: 1+, Rt Biceps: 1+, Lt Biceps: 1+, Rt Brachioradialis: 1+, Lt Brachioradialis: 1+, Rt Patellar: 1+, Lt Patellar: 1+, Rt Ankle: 1+ and Lt Ankle: 1+ Special Tests: negative Babinski Present Details: Gait cannot be tested in the context of patient's current medical status. Patient has a perioral tremor. Results & Data ([facility]) Vital Signs (Past 12 Hours) Vital Signs Temp Pulse Pulse Pulse Resp BP Pulse Ox 08/17/22 08:29 36.6 C 75 17 144/78 H 98 08/17/22 07:25 66 08/17/22 03:25 36.9 C 72 16 121/72 94 08/16/22 23:25 36.9 C 79 18 177/91 H 98 O2 Del Method 08/17/22 08:29 Room Air 08/17/22 07:25 08/17/22 03:25 Room Air 08/16/22 23:25 Room Air Laboratory Results WBC 5.32, hemoglobin 14.0, hematocrit 41.0, platelet count 184, sodium 139, potassium 3.9, BUN 19, creatinine 0.61, glucose 193, AST 14, ALT 4, triglycerides 108, cholesterol 134, LDL 63, VLDL 22, HDL [address] angiography of the head and neck and brain MRI are as described in the HPI. I independently reviewed these images. Electrocardiogram reveals atrial fibrillation, 84 bpm. PG Care Time/CCT Total # of Minutes Spent Total Time Spent: 80 Coding Level of Care Code 81233 INT INP/OBS CARE 3/75MIN Diagnoses Expressive aphasia R47.01 Symptomatic stenosis of left carotid artery I65.22 Parkinsons disease G20 Diabetic peripheral neuropathy E11.42 Acoustic neuroma D33.3
--- NOTE | 2022-08-17 12:00 | XCELERA ---
[id number] \\[id number]
--- NOTE | 2022-08-17 12:30 | Electrocardiogram Report ---
Test Reason : Blood Pressure : / mmHG Vent. Rate : 084 BPM Atrial Rate : 070 BPM P-R Int : 000 ms QRS Dur : 090 ms QT Int : 360 ms P-R-T Axes : 000 -47 066 degrees QTc Int : 425 ms Poor data quality, interpretation may be adversely affected Atrial fibrillation Left anterior fascicular block Poor R wave progression, consider anterior [place] vs. lead placement vs. LVH Abnormal ECG When compared with ECG of 26-MAY-2022 06:02, No significant change was found Confirmed by Aleksandr Carrera ([id number]) on 08/17/2022 12:30:02 PM Referred By: REFERRED SELF Confirmed By:Aleksandr Carrera
--- NOTE | 2022-08-17 13:13 | Pharmacy Report ---
- Date of Service August 17, 2022 - Pharmacy CVA/TIA Medication Review Medications to Prevent Stroke handout has been added to the patients discharge packet. Antiplatelet(s) * Aspirin 81 mg Cholesterol * High intensity statin: atorvastatin 40 mg daily DVT Prophylaxis * SCD knee * Therapeutic Anticoagulation * No history of Afib/Aflutter noted * Hx Afib/Aflutter noted, and patient is currently receiving rivaroxaban 20 mg Type 2 Diabetes * Patient has T2DM, previously prescribed SGLT-2inhibitor but was discontinued d/t recurrent UTIs. "Medications to prevent stroke" handout has already been added to the patient's discharge packet, which instructs the patient to follow up with their outpatient provider to evaluate which diabetes medication with proven CVD benefit is best for them
--- NOTE | 2022-08-17 14:05 | Hospitalist Progress Note ---
Date of Service August 17, 2022 Assessment & Plan (1) Acute CVA (cerebrovascular accident): Plan: Patient was admitted to the hospital on account of expressive aphasia Last known well was 48 hrs prior to presentation CT of the head was negative for acute changes CTA of the head and neck show 90% stenosis of the proximal left carotid artery but with patent BL vertebral arteries and right carotid artery MRI brain shows evidence of acute stroke Neurology and Vascular surgery on consult Plan is for carotid endaterectomy will continue permissive BP Continue statin Expressive aphasia had resolved by the time I saw her (2) Symptomatic stenosis of left carotid artery: Plan: CTA of the head and neck show 90% stenosis of the proximal left carotid artery but with patent BL vertebral arteries and right carotid artery Vascular on consult, plan is for carotid endaterectomy (3) Diabetes type 2, uncontrolled: Plan: -Removed insulin pump for now due to her NPO status -Monitor BSG q6h while NPO, goal is 110-140 -5 units lantus BID, correction factor of 50, carb ratio of 15 -Adjust regimen as needed (4) Hypertension: Plan: -Stable -Continue to monitor -Permissive HTN (5) Parkinson's disease dementia: Plan: -Continue Carbidopa-Levodopa and amantadine (6) CHF (congestive heart failure): Plan: -Examines euvolemic, continue to monitor volume status (7) Expressive aphasia: (8) Depression: Plan: -Continue prn ativan (9) A-fib: Plan: -Stable -Continue Xarelto Plan continue hospitalization Admission and Anticipated Discharge Date Admission Date: August 16, 2022 Subjective patient seen and examined, no new complaints Review of Systems Review of Systems: All systems reviewed are negative, apart from the ones contained in the history. Physical Exam Physical Exam: The patient is awake, alert and oriented 3, well developed and well nourished, normocephalic and atraumatic, lying in bed and in no acute distress. HEENT--PERRL, EOMI, mucous membranes and oropharynx mildly dry Neck--supple. No JVD. No bruits. Thyroid normal, trachea midline, no adenopathy. Heart--normal S1 and S2. No murmurs, rubs or gallops. Lungs--clear bilaterally, no respiratory distress, no accessory muscle use. Abdomen--normal bowel sounds and soft. Mild epigastric and left sided abdominal pain Extremities--no cyanosis or clubbing. No edema. Dermatologic--normal skin turgor, normal color, no abnormal lymph nodes, no rash. Neurologic--cranial nerves II through XII grossly intact. Rheumatologic--normal range of motion. Psychiatric--normal affect. Results & Data Results & Data ([facility]) Vital Signs (Past 12 Hours) Vital Signs Temp Pulse Pulse Resp BP Pulse Ox O2 Del Method 08/17/22 11:21 97.9 F 59 L 17 119/67 97 Room Air 08/17/22 08:29 97.9 F 75 17 144/78 H 98 Room Air 08/17/22 07:25 66 08/17/22 03:25 98.4 F 72 16 121/72 94 Room Air PG Care Time/CCT Total # of Minutes Spent Total Time Spent with Patient: Total time spent is greater than 50% in coordination of care (as documented) at patient's floor/unit and/or counseling patient: Coding Level of Care Code 07841 SUB INP/OBS CARE 2/35MIN Diagnoses Acute CVA (cerebrovascular accident) I63.9 Symptomatic stenosis of left carotid artery I65.22 Diabetes type 2, uncontrolled E11.65 Hypertension I10 Parkinson's disease dementia G20; F02.80 CHF (congestive heart failure) I50.9 Expressive aphasia R47.01 Depression F32.A A-fib I48.91 Time Spent (min) 35
[2022-08-17] MEDS: LORazepam 0.5 MG TAB PO PRN (19:27)
[2022-08-17] MEDS: ASPIRIN 81 MG ECTAB PO SCH ×2 (20:19→21:35)
[2022-08-17] MEDS: RIVAROXABAN 20 MG TAB PO SCH ×2 (20:20→21:36)
[2022-08-17] MEDS ORDERED: Nursing to Pharmacy Communication SCH (22:00)
[2022-08-18] MEDS: LANTUS PER UNIT CHARGE SQ SCH ×2 (08:39→21:20)
[2022-08-18] MEDS: INSULIN ASPART PER UNIT SC SCH ×4 (08:42→21:21)
[2022-08-18] MEDS: AMANTADINE HCL 100 MG CAPSULE PO SCH ×2 (08:43→21:20)
[2022-08-18] MEDS: ATORVASTATIN 40 MG TAB PO SCH (08:43)
[2022-08-18] MEDS: CARBIDOPA/LEVODOPA 25/100MG TAB PO SCH ×4 (08:43→20:24)
[2022-08-18] MEDS: GABAPENTIN 300 MG CAP PO SCH ×2 (08:43→20:24)
[2022-08-18 09:50] LABS: Basophils # (auto) 0.03 K/uL (0-0.2); Basophils % (auto) 0.6 %; Eosinophils # (auto) 0.12 K/uL (0-0.50); Eosinophils % (auto) 2.6 %; Hematocrit (blood only) 40.6 % (37.0-47.0); Hemoglobin 13.9 g/dl (12.0-16.0); Immature Granulocytes # (auto) 0.02 K/uL (0.01-0.20); Immature Granulocytes % (auto) 0.4 %; Lymphocytes # (auto) 1.18 K/uL (1.2-3.4); Lymphocytes % (auto) 25.1 %; Mean Corpuscular Hemoglobin 29.5 pg (25.0-34.0); Mean Corpuscular Hgb Conc 34.2 g/dL (32.0-36.0); Mean Corpuscular Volume 86.2 fL (80.0-100.0); Mean Platelet Volume 11.2 fL (9.4-12.4); Monocytes # (auto) 0.37 K/uL (0.11-0.59); Monocytes % (auto) 7.9 %; Neutrophils # (auto) 2.98 K/uL (1.40-6.50); Neutrophils % (auto) 63.4 %; Platelet Count 167 K/uL (130-400); RDW Coefficient of Variation 14.2 % (11.5-14.5); RDW Standard Deviation 44.6 fL (36.4-46.3); Red Blood Count 4.71 M/uL (4.20-5.40)
[2022-08-18 09:56] LABS: Albumin Globulin Ratio 1.4 (0.9-2); Albumin Level 3.6 gm/dl (3.4-5.0); BUN Creatinine Ratio 24.2 (10-20); Bilirubin,Total 1.9 mg/dl (0.2-1.0); Calcium 9.1 mg/dl (8.5-10.1); Creatinine Clr Calc Pharmacy 75.9 ml/min; Est GFR (African American) 99.5 ml/min; Est GFR (Non-African American) 85.8 ml/min; Globulin 2.5 gm/dl (2.5-4.0); Total Protein 6.1 gm/dl (6.0-8.3)
[2022-08-18] MEDS ORDERED: CLOPIDOGREL BISULFATE 300 MG TAB PO STA (11:23)
--- NOTE | 2022-08-18 12:21 | Hospitalist Progress Note ---
Date of Service August 18, 2022 Assessment & Plan (1) Acute CVA (cerebrovascular accident): Plan: Patient was admitted to the hospital on account of expressive aphasia CT of the head was negative for acute changes CTA of the head and neck show 90% stenosis of the proximal left carotid artery but with patent BL vertebral arteries and right carotid artery MRI brain shows evidence of acute stroke Neurology and Vascular surgery on consult Plan is for carotid endaterectomy, however, not until next week Wednesday Will continue Plavix, ASA, statin She lives alone, so will need rehab for a few days before her procedure (2) Symptomatic stenosis of left carotid artery: Plan: CTA of the head and neck show 90% stenosis of the proximal left carotid artery but with patent BL vertebral arteries and right carotid artery Vascular on consult, plan is for carotid endaterectomy (3) Diabetes type 2, uncontrolled: Plan: -Removed insulin pump for now due to her NPO status -Monitor BSG q6h while NPO, goal is 110-140 -5 units lantus BID, correction factor of 50, carb ratio of 15 -Adjust regimen as needed (4) Hypertension: Plan: -Stable -Continue to monitor (5) Parkinson's disease dementia: Plan: -Continue Carbidopa-Levodopa and amantadine (6) CHF (congestive heart failure): Plan: -Examines euvolemic, continue to monitor volume status (7) Expressive aphasia: (8) Depression: Plan: -Continue prn ativan (9) A-fib: Plan: -Stable -Continue Xarelto Plan Plan is for acute rehab Admission and Anticipated Discharge Date Admission Date: August 17, 2022 Subjective patient seen and examined, no new complaints, sitting up in the chair Review of Systems Review of Systems: All systems reviewed are negative, apart from the ones contained in the history. Physical Exam Physical Exam: The patient is awake, alert and oriented 3, well developed and well nourished, normocephalic and atraumatic, lying in bed and in no acute distress. HEENT--PERRL, EOMI, mucous membranes and oropharynx mildly dry Neck--supple. No JVD. No bruits. Thyroid normal, trachea midline, no adenopathy. Heart--normal S1 and S2. No murmurs, rubs or gallops. Lungs--clear bilaterally, no respiratory distress, no accessory muscle use. Abdomen--normal bowel sounds and soft. Mild epigastric and left sided abdominal pain Extremities--no cyanosis or clubbing. No edema. Dermatologic--normal skin turgor, normal color, no abnormal lymph nodes, no trav h. Neurologic--cranial nerves II through XII grossly intact. some tremors Rheumatologic--normal range of motion. Psychiatric--normal affect. Results & Data Results & Data ([facility]) Vital Signs (Past 12 Hours) Vital Signs Temp Pulse Pulse Resp BP BP Pulse Ox 08/18/22 11:51 98.6 F 82 16 123/73 93 08/18/22 07:13 98.6 F 64 16 136/75 95 08/18/22 07:01 66 08/18/22 02:46 97.9 F 61 16 123/68 95 O2 Del Method 08/18/22 11:51 Room Air 08/18/22 07:13 Room Air 08/18/22 07:01 08/18/22 02:46 Room Air PG Care Time/CCT Total # of Minutes Spent Total Time Spent with Patient: Total time spent is greater than 50% in coordination of care (as documented) at patient's floor/unit and/or counseling patient: Coding Level of Care Code 79031 SUB INP/OBS CARE 2/35MIN Diagnoses Acute CVA (cerebrovascular accident) I63.9 Symptomatic stenosis of left carotid artery I65.22 Diabetes type 2, uncontrolled E11.65 Hypertension I10 Parkinson's disease dementia G20; F02.80 CHF (congestive heart failure) I50.9 Expressive aphasia R47.01 Depression F32.A A-fib I48.91 Time Spent (min) 35
[2022-08-18] MEDS: LORazepam 0.5 MG TAB PO PRN (21:20)
[2022-08-19] MEDS: ACETAMINOPHEN 325 MG TAB PO PRN (02:10)
[2022-08-19 06:29] LABS: Anion Gap 5 (3-11); BUN Creatinine Ratio 29.7 (10-20); Basophils # (auto) 0.02 K/uL (0-0.2); Basophils % (auto) 0.4 %; Blood Urea Nitrogen 19 mg/dl (6-23); Calcium 9.1 mg/dl (8.5-10.1); Carbon Dioxide 27 mmol/L (21-32); Chloride 105 mmol/L (98-107); Creatinine Clr Calc Pharmacy 76.9 ml/min; Eosinophils # (auto) 0.15 K/uL (0-0.50); Est GFR (African American) 100.5 ml/min; Est GFR (Non-African American) 86.7 ml/min; Glucose 213 mg/dl (70-99(Fasting)); Hematocrit (blood only) 37.7 % (37.0-47.0); Hemoglobin 13.1 g/dl (12.0-16.0); Immature Granulocytes # (auto) 0.03 K/uL (0.01-0.20); Immature Granulocytes % (auto) 0.6 %; Lymphocytes # (auto) 1.23 K/uL (1.2-3.4); Lymphocytes % (auto) 24.8 %; Mean Corpuscular Hemoglobin 29.8 pg (25.0-34.0); Mean Corpuscular Hgb Conc 34.7 g/dL (32.0-36.0); Mean Corpuscular Volume 85.9 fL (80.0-100.0); Mean Platelet Volume 10.8 fL (9.4-12.4); Monocytes # (auto) 0.38 K/uL (0.11-0.59); Monocytes % (auto) 7.7 %; Neutrophils # (auto) 3.15 K/uL (1.40-6.50); Neutrophils % (auto) 63.5 %; Platelet Count 174 K/uL (130-400); Potassium 3.8 mmol/L (3.5-5.1); RDW Coefficient of Variation 13.9 % (11.5-14.5); RDW Standard Deviation 43.5 fL (36.4-46.3); Red Blood Count 4.39 M/uL (4.20-5.40); Sodium 137 mmol/L (136-145); White Blood Count 4.96 K/ul (4.8-10.8)
[2022-08-19 06:30] LABS: Alanine Aminotransferase < 3 U/L (7-52); Albumin Globulin Ratio 1.4 (0.9-2); Albumin Level 3.6 gm/dl (3.4-5.0); Alkaline Phosphatase 72 U/L (34-104); Aspartate Aminotransferase 14 U/L (13-39); Bilirubin,Total 1.5 mg/dl (0.2-1.0); Globulin 2.5 gm/dl (2.5-4.0); Total Protein 6.1 gm/dl (6.0-8.3)
[2022-08-19] MEDS: GABAPENTIN 300 MG CAP PO SCH ×2 (08:37→21:44)
[2022-08-19] MEDS: INSULIN ASPART PER UNIT SC SCH ×4 (08:37→20:19)
[2022-08-19] MEDS: CARBIDOPA/LEVODOPA 25/100MG TAB PO SCH ×4 (08:37→21:44)
[2022-08-19] MEDS: ATORVASTATIN 40 MG TAB PO SCH (08:38)
[2022-08-19] MEDS: CLOPIDOGREL BISULFATE 75 MG TAB PO SCH (08:38)
[2022-08-19] MEDS: LANTUS PER UNIT CHARGE SQ SCH ×2 (09:04→21:28)
[2022-08-19] MEDS: AMANTADINE HCL 100 MG CAPSULE PO SCH ×2 (09:09→21:44)
[2022-08-19] MEDS: POLYETHYLENE (MIRALAX) 17 GM PACK PO SCH (10:30)
[2022-08-19] MEDS ORDERED: INSULIN ASPART PER UNIT SC STA (12:33)
--- NOTE | 2022-08-19 13:01 | Hospitalist Progress Note ---
Date of Service August 19, 2022 Assessment & Plan (1) Acute CVA (cerebrovascular accident): Plan: Patient was admitted to the hospital on account of expressive aphasia CT of the head was negative for acute changes CTA of the head and neck show 90% stenosis of the proximal left carotid artery but with patent BL vertebral arteries and right carotid artery MRI brain shows evidence of acute stroke Neurology and Vascular surgery on consult Plan is for carotid endarterectomy, however, not until next week Wednesday Will continue Plavix, ASA, statin She lives alone, so will need rehab for a few days before her procedure Participating in PT (2) Symptomatic stenosis of left carotid artery: Plan: CTA of the head and neck show 90% stenosis of the proximal left carotid artery but with patent BL vertebral arteries and right carotid artery Vascular on consult, plan is for carotid endaterectomy next continue Plavix and ASA and statin (3) Diabetes type 2, uncontrolled: Plan: -Removed insulin pump for now due to her NPO status -Monitor BSG q6h while NPO, goal is 110-140 -5 units lantus BID, correction factor of 50, carb ratio of 15 -Adjust regimen as needed (4) Hypertension: Plan: -Stable -Continue to monitor (5) Parkinson's disease dementia: Plan: -Continue Carbidopa-Levodopa and amantadine (6) CHF (congestive heart failure): Plan: -Examines euvolemic, continue to monitor volume status (7) Expressive aphasia: Plan: resolved (8) Depression: Plan: -Continue prn ativan (9) A-fib: Plan: -Stable -Continue Xarelto Plan Plan is for acute rehab when accepted Admission and Anticipated Discharge Date Admission Date: August 17, 2022 Subjective patient seen and examined, no new complaints, sitting up in the chair, participating in PT Review of Systems Review of Systems: All systems reviewed are negative, apart from the ones contained in the history. Physical Exam Physical Exam: The patient is awake, alert and oriented 3, well developed and well nourished, normocephalic and atraumatic, lying in bed and in no acute distress. HEENT--PERRL, EOMI, mucous membranes and oropharynx mildly dry Neck--supple. No JVD. No bruits. Thyroid normal, trachea midline, no adenopathy. Heart--normal S1 and S2. No murmurs, rubs or gallops. Lungs--clear bilaterally, no respiratory distress, no accessory muscle use. Abdomen--normal bowel sounds and soft. Mild epigastric and left sided abdominal pain Extremities--no cyanosis or clubbing. No edema. Dermatologic--normal skin turgor, normal color, no abnormal lymph nodes, no rash. Neurologic--cranial nerves II through XII grossly intact. some tremors Rheumatologic--normal range of motion. Psychiatric--normal affect. Results & Data Results & Data ([facility]) Vital Signs (Past 12 Hours) Vital Signs Temp Pulse Pulse Resp BP BP Pulse Ox 08/19/22 11:41 97.7 F 72 18 112/75 97 08/19/22 07:33 97.5 F L 72 20 138/78 96 08/19/22 06:00 67 08/19/22 03:55 66 08/19/22 03:20 62 18 147/81 H 97 O2 Del Method 08/19/22 11:41 Room Air 08/19/22 07:33 Room Air 08/19/22 06:00 08/19/22 03:55 08/19/22 03:20 Room Air PG Care Time/CCT Total # of Minutes Spent Total Time Spent with Patient: Total time spent is greater than 50% in coordination of care (as documented) at patient's floor/unit and/or counseling patient: Coding Level of Care Code 10056 SUB INP/OBS CARE 2/35MIN Diagnoses Acute CVA (cerebrovascular accident) I63.9 Symptomatic stenosis of left carotid artery I65.22 Diabetes type 2, uncontrolled E11.65 Hypertension I10 Parkinson's disease dementia G20; F02.80 CHF (congestive heart failure) I50.9 Expressive aphasia R47.01 Depression F32.A A-fib I48.91 Time Spent (min) 35
[2022-08-19] MEDS: CARBAMIDE PEROXIDE 6.5% 15 ML BTL OT PRN (21:43)
[2022-08-20] MEDS: CARBAMIDE PEROXIDE 6.5% 15 ML BTL OT PRN (05:47)
[2022-08-20 06:24] LABS: Hematocrit (blood only) 41.6 % (37.0-47.0); Hemoglobin 14.3 g/dl (12.0-16.0); Mean Corpuscular Hemoglobin 29.4 pg (25.0-34.0); Mean Corpuscular Hgb Conc 34.4 g/dL (32.0-36.0); Mean Corpuscular Volume 85.6 fL (80.0-100.0); Mean Platelet Volume 10.4 fL (9.4-12.4); Platelet Count 196 K/uL (130-400); RDW Coefficient of Variation 13.9 % (11.5-14.5); RDW Standard Deviation 43.6 fL (36.4-46.3); Red Blood Count 4.86 M/uL (4.20-5.40); White Blood Count 4.68 K/ul (4.8-10.8)
[2022-08-20 06:41] LABS: BUN Creatinine Ratio 25.4 (10-20); Calcium 9.2 mg/dl (8.5-10.1); Creatinine Clr Calc Pharmacy 72.8 ml/min; Est GFR (Non-African American) 85.4 ml/min; Potassium 3.7 mmol/L (3.5-5.1)
[2022-08-20] MEDS: POLYETHYLENE (MIRALAX) 17 GM PACK PO SCH (08:21)
[2022-08-20] MEDS: ACETAMINOPHEN 325 MG TAB PO PRN ×2 (08:21→12:13)
[2022-08-20] MEDS: INSULIN ASPART PER UNIT SC SCH ×2 (08:22→12:13)
[2022-08-20] MEDS: LANTUS PER UNIT CHARGE SQ SCH (08:22)
[2022-08-20] MEDS: AMANTADINE HCL 100 MG CAPSULE PO SCH (08:23)
[2022-08-20] MEDS: CLOPIDOGREL BISULFATE 75 MG TAB PO SCH (08:23)
[2022-08-20] MEDS: CARBIDOPA/LEVODOPA 25/100MG TAB PO SCH ×3 (08:23→15:32)
[2022-08-20] MEDS: GABAPENTIN 300 MG CAP PO SCH (08:23)
[2022-08-20] MEDS: ATORVASTATIN 40 MG TAB PO SCH (08:23)
[2022-08-20] MEDS ORDERED: STROKE PATIENT DISCHARGE STA (10:38)
--- NOTE | 2022-08-20 15:00 | Discharge Summary ---
Date of Service August 20, 2022 Admission HPI Per Admitting Provider 76yo female with PMH of Parkinson's disease with dementia, paroxysmal afib (on xarelto), DM2 with neuropathy, anxiety/depression, HFpEF (LVEF of 60-65% as of 02/17/20), dyslipidemia, and HTN who presented to the [facility] ED on 08/16/22 due to concerns for possible slurred speech. Per the ED staff, the patient's Daughter spoke with her earlier today and was concerned that her speech was slurred, she called EMS. In the ED the patient was found to be afebrile, hemodynamically stable, and stable on RA. Labs were remarkable for a CBC WNL, stable cr at 0.75, stable electrolytes, glucose of 178, total bili of 1.3 (improved from 2.2 as of 05/22/22), otherwise LFT's WNL, and covid negative. CT of the head was read as "No significant change compared to the prior study. No acute intracranial abnormality. Stable right cerebellopontine angle cistern lesion suggestive of an acoustic neuroma.". CTA of the head and neck were read as "1. No significant stenosis, occlusion, or aneurysm within the [place]. 2. There is a focal area of 90% stenosis within the proximal left internal carotid artery which has progressed in the interval. 3. No significant stenosis, occlusion, or dissection within the right carotid or vertebral arteries. 4. No change in the 2 cm right cerebellopontine angle lesion which likely represents an acoustic neuroma.". The patient was not a TNK candidate as she is already on Xarelto and her last known well was unknown. AT the time of the exam the patient was lying in bed in no acute distress. History was difficult to obtain due to the patient's expressive aphasia. At times she will be able to communicate effectively with fluent speech and answering questions appropriately. When asked why she was brought to the hospital she was able to communicate that she is having issues with her speech. When asked what time her speech issues started she tells me "this afternoon". She currently has no other complaints but is very anxious as she knows this is not her baseline. While examining her I was able to find her insulin pump, this was removed as we will be controlling her insulin with basal/bolus while she is NPO. I was able to call and speak with her Son/POA (Morgan Ramirez [phone]), who was able to provide a detailed history. He states that at baseline the patient currently lives alone and is able to complete the majority of her ADLs including cooking and controlling her medications. She does have a relative that comes to the house 5 days a week. Her Son states that he is in contact with his mother daily, either in person, speaking on the phone, or texting. He states that he last saw the patient 2 days ago and she was in her normal state of health. At baseline she does not have issues with speaking or getting her words out. He texted with her yesterday and she was responding appropriately. Earlier this afternoon the patient's Granddaughter called and spoke with her on the phone. She immediately became concerned as the patient was not making sense and her Granddaughter could not understand her. This is when EMS was contacted. Her Son confirms that the patient is still still on Xarelto and has a loop recorder for her Afib. We discussed billingsley status, he confirms that the patient has a living will and is a DNR/DNI. Principal Diagnosis acute stroke, carotid stenosis Discharge Exam The patient is awake, alert and oriented 3, well developed and well nourished, normocephalic and atraumatic, lying in bed and in no acute distress. HEENT--PERRL, EOMI, mucous membranes and oropharynx mildly dry Neck--supple. No JVD. No bruits. Thyroid normal, trachea midline, no adenopathy. Heart--normal S1 and S2. No murmurs, rubs or gallops. Lungs--clear bilaterally, no respiratory distress, no accessory muscle use. Abdomen--normal bowel sounds and soft. Mild epigastric and left sided abdominal pain Extremities--no cyanosis or clubbing. No edema. Dermatologic--normal skin turgor, normal color, no abnormal lymph nodes, no rash. Neurologic--cranial nerves II through XII grossly intact. some tremors Rheumatologic--normal range of motion. Psychiatric--normal affect. Discharge Data Allergies Allergy/AdvReac Type Severity Reaction Status Date / Time benztropine Allergy Unknown PT NOT SURE Verified 08/16/22 19:20 citalopram Allergy Unknown PT NOT SURE Verified 08/16/22 19:20 doxycycline Allergy Unknown REMOTE HX, Verified 08/16/22 19:20 PT NOT SURE REACTION minocycline Allergy Unknown REMOTE HX, Verified 08/16/22 19:20 PT NOT SURE REACTION simvastatin Allergy Unknown PT NOT SURE Verified 08/16/22 19:20 sulindac Allergy Unknown PT NOT SURE Verified 08/16/22 19:20 empagliflozin AdvReac Intermediate Recurrent Verified 08/16/22 19:20 [From Jardiance] Urinary Tract Infection Consultations 08/16/22 19:21 ED Decision to Admit Stat 08/16/22 20:59 Consult Vascular Surgery Routine 08/17/22 07:55 Consult Neurology Routine Ordered Studies 08/16/22 16:53 CT angio head w con Stat CT angio neck with con Stat CT head/brain wo con Stat 08/16/22 20:13 MRI Brain [MR brain wo con] Routine Hospital Course (1) Acute CVA (cerebrovascular accident): Patient was admitted to the hospital on account of expressive aphasia CT of the head was negative for acute changes CTA of the head and neck show 90% stenosis of the proximal left carotid artery but with patent BL vertebral arteries and right carotid artery MRI brain shows evidence of acute stroke Neurology and Vascular surgery on consult Plan is for carotid endarterectomy, however, not until next week Wednesday Will continue xarelto, ASA, statin She lives alone, so will need rehab for a few days before her procedure Participating in PT (2) Symptomatic stenosis of left carotid artery: CTA of the head and neck show 90% stenosis of the proximal left carotid artery but with patent BL vertebral arteries and right carotid artery Vascular on consult, plan is for carotid endaterectomy next continue Plavix and ASA and statin (3) Diabetes type 2, uncontrolled: -Removed insulin pump for now due to her NPO status -Monitor BSG q6h while NPO, goal is 110-140 -5 units lantus BID, correction factor of 50, carb ratio of 15 -Adjust regimen as needed (4) Hypertension: -Stable -Continue to monitor (5) Parkinson's disease dementia: -Continue Carbidopa-Levodopa and amantadine (6) CHF (congestive heart failure): -Examines euvolemic, continue to monitor volume status (7) Expressive aphasia: resolved (8) Depression: -Continue prn ativan (9) A-fib: -Stable -Continue Xarelto Plan Plan is for acute rehab when accepted, follow up with Dr Jay for carotid endaterectomy Total Time Total Time Spent Total Time Spent (In Minutes): 35 Discharge Plan Discharge Items Patient Disposition: Transfer Inpatient Rehab Fac Reason For Visit: SLURRED SPEECH Discharge Diagnosis: Acute stroke, carotid stenosis Activity: Per Instructions section Non-emergency contact: Primary Care Provider Call non-emergency contact if: you have any medication questions Follow-up/Referrals: Damaris Vega MD [Primary Care Provider] - Diet: Regular Addtl Attending Provider Instructions: Please make appointment to see Dr Jay for your vascular procedure, it is tentattively scheduled for next Wednesday (08/26/22) Continue with atorvastatin, daily low-dose aspirin, Xarelto. Timing of vascular procedure per Dr. Jay. Continue medical management of blood pressure, may allow for permissive hypertension acutely, systolic blood pressure 140 to 160 mmHg. Patient should continue with carbidopa levodopa and amantadine for management of her Parkinson's disease. Patient should continue with gabapentin for diabetic peripheral neuropathy pain. No intervention is needed for the stable right vestibular schwannoma at this time. Patient should follow-up with local [facility] neurology for her Parkinson's and diabetic peripheral neuropathy as an outpatient. Pending Studies at Discharge: No Stand-Alone Forms: [employer], Medications to Prevent Stroke Skilled Items Patient informed of condition?: Yes DNR: Yes Discharge Level of Care: Acute rehab Communicable Disease: No Discharge Prognosis: Stable Lines: None Urinary Catheter: No Medications and DC Order Prescriptions: Continued (DME) FreeStyle Ruben 2 Sensor Kit See Rx Instructions .ROUTE .MEDSUPPLY Qty: 1 Rx Instructions: As directed cetirizine [Zyrtec] 10 mg tablet 10 mg PO DAILY PRN (Reason: Allergy Symptoms) amantadine HCl 100 mg capsule 100 mg PO [facility] (DME) OneTouch Verio test strips Strip See Rx Instructions .ROUTE .MEDSUPPLY Qty: 10 Rx Instructions: Test blood sugar once daily PRN gabapentin 300 mg capsule 300 mg PO BID Rx Instructions: 08/16/22 : CONFIRMED STRENGTH WITH SON, UNABLE TO CONFIRM DAILY DOSE AND FREQUENCY WITH SON. aspirin [Yariel Low Dose Aspirin] 81 mg tablet,delayed release (DR/EC) 81 mg PO HS lorazepam 0.5 mg tablet 0.5 mg PO BID PRN (Reason: Anxiety) Rx Instructions: 08/16/22 : UNABLE TO CONFIRM MED,STRENGTH, OR DOSAGE WITH SON. Xarelto 20 mg tablet 20 mg PO QPM carbidopa-levodopa 25-100 mg tablet 2 tab PO QID Rx Instructions: 08/16/22 : CONFIRMED STRENGTH WITH SON, UNABLE TO CONFIRM DAILY DOSAGE AND FREQUENCY WITH SON. insulin aspart U-100 [Novolog U-100 Insulin aspart] 100 unit/mL Solution See Rx Instructions .ROUTE .COMPLEX Qty: 0 0RF Rx Instructions: --Goal BSG Range: Low 110mg/dL, High 180mg/dL --Correction Factor: 25mg/dL/unit --Carbohydrate ratio = 10 g/unit --BSGs ACHS if eating, q6h if npo 08/16/22 : UNABLE TO CONFIRM STRENGTH, DOSE, AND INSTRUCTIONS WITH SON. Discharge Orders: Discharge Order (Routine); Ordered 08/20/22 Ordered By: Selene Bridges Admission Data Admit Date/Time: 08/17/22 16:04 Attending Provider: Selene Bridges Admit Provider: Yudi Meza Primary Care Provider: Damaris Vega Other Providers: Yudi Meza ; Corky Jay ; Vaughn Gage ; [facility] ; Robson Dawkins [facility] Other Interventions: Discharge Summary Assessment (RN) Last Done: 08/20/22 13:47 Coding Level of Care Code 01565 INP/OBS DISCH >30 MIN Diagnoses Acute CVA (cerebrovascular accident) I63.9 Symptomatic stenosis of left carotid artery I65.22 Diabetes type 2, uncontrolled E11.65 Hypertension I10 Parkinson's disease dementia G20; F02.80 CHF (congestive heart failure) I50.9 Expressive aphasia R47.01 Depression F32.A A-fib I48.91 Time Spent (min) 35
== END 2022-08-20 15:56 | DRG 67 ==
LOC: ED 16:27 → 2N 16:27 → SUATTDRO 19:50 → 2N 21:40

== ENCOUNTER 2022-08-26 10:33 | Inpatient (IN) ==
--- NOTE | 2022-08-24 15:00 | Anesthesiology Consultation ---
Date of Service August 24, 2022 Assessment & Plan (1) Encounter for pre-operative examination: Plan - check BSG am DOS. - discharge summary 08/20/22 [facility]: "...Parkinson's disease with dementia, paroxysmal afib (on xarelto), DM2 with neuropathy, anxiety/depression, HFpEF (LVEF of 60-65% as of 02/17/20), dyslipidemia, and HTN who presented to the [facility] ED on 08/16/22 due to concerns for possible slurred speech...CT of the head was negative for acute changes. CTA of the head and neck show 90% stenosis of the proximal left carotid artery but with patent BL vertebral arteries and right carotid artery. MRI brain shows evidence of acute stroke...Plan is for carotid endarterectomy, however, not until next week Wednesday. Will continue xarelto, ASA, statin... - COVID screening: Per electronic systems security assessment on 08/24/2022: Travel screen negative, no k nown COVID-19 positive contacts or current COVID-19 related symptoms in past 2 weeks. To surgeon's discretion if preop COVID testing is needed. Pt currently at [facility]. Chart Review Chart Review: Acceptable Risk for Surgery and Patient NOT seen in Pre Admission Testing History Surgery Operation Date: 08/26/22 12:00 Proposed Procedures p Left Transcarotid Artery Revascularization - Corky Jay MD Height/Weight Height: 5 ft 4 in Weight: 81.647 kg Allergies Allergy/AdvReac Type Severity Reaction Status Date / Time benztropine Allergy Unknown PT NOT SURE Verified 08/24/22 09:35 citalopram Allergy Unknown PT NOT SURE Verified 08/24/22 09:35 doxycycline Allergy Unknown REMOTE HX, Verified 08/24/22 09:35 PT NOT SURE REACTION minocycline Allergy Unknown REMOTE HX, Verified 08/24/22 09:35 PT NOT SURE REACTION simvastatin Allergy Unknown PT NOT SURE Verified 08/24/22 09:35 sulindac Allergy Unknown PT NOT SURE Verified 08/24/22 09:35 empagliflozin AdvReac Intermediate Recurrent Verified 08/24/22 09:35 [From Jardiance] Urinary Tract Infection Medications Home Medications Medication Instructions Recorded Confirmed Last Taken aspirin 81 mg tablet,delayed 81 mg PO HS 01/19/19 08/24/22 10/29/20 release (Yariel Low Dose Aspirin) lorazepam 0.5 mg tablet 0.5 mg PO BID PRN Anxiety 11/08/19 08/24/22 10/29/20 rivaroxaban 20 mg tablet (Xarelto) 20 mg PO QPM 11/08/19 08/24/22 10/29/20 carbidopa 25 mg-levodopa 100 mg 2 tab PO QID 02/07/20 08/24/22 10/29/20 tablet flash glucose sensor (FreeStyle #1 ea 09/02/20 07/21/22 Unknown Ruben 2 Sensor kit) gabapentin 300 mg capsule 300 mg PO BID 10/15/21 08/24/22 Unknown amantadine HCl 100 mg capsule 100 mg PO AMHS 01/13/22 08/24/22 Unknown blood sugar diagnostic (OneTouch #10 ea 01/13/22 07/21/22 Unknown Verio test strips) atorvastatin 40 mg tablet 40 mg PO QAM 08/24/22 08/24/22 Unknown bisacodyl 10 mg rectal suppository 10 mg [place] DAILY PRN Constipation 08/24/22 08/24/22 Unknown clopidogrel 75 mg tablet (Plavix) 75 mg PO UD 08/24/22 08/24/22 Unknown fluticasone propionate 50 2 spray intranasal QAM 08/24/22 08/24/22 Unknown mcg/actuation nasal spray,suspension (Flonase Allergy Relief) insulin glargine 100 unit/mL (3 10 unit subcut BID 08/24/22 08/24/22 Unknown mL) subcutaneous pen (Lantus Solostar U-100 Insulin) insulin regular human 100 unit/mL 1 sliding scale dose subcut 08/24/22 08/24/22 Unknown injection solution (Humulin R USEASDIRECTD Regular U-100 Insulin) loratadine 10 mg tablet 10 mg PO DAILY PRN seasonal 08/24/22 08/24/22 Unknown allergies magnesium hydroxide 2,400 mg/10 mL 30 ml PO DAILY PRN Constipation 08/24/22 08/24/22 Unknown oral suspension (Milk Of Magnesia Concentrated) ondansetron 4 mg disintegrating 4 mg PO Q4H PRN nausea or vomiting 08/24/22 08/24/22 Unknown tablet pantoprazole 40 mg tablet,delayed 40 mg PO QAM 08/24/22 08/24/22 Unknown release (Protonix) polyethylene glycol 3350 17 17 g PO QDL PRN Constipation 08/24/22 08/24/22 Unknown gram/dose oral powder (Miralax) sennosides 8.6 mg tablet (Senokot) 8.6 mg PO QDL PRN Constipation 08/24/22 08/24/22 Unknown sodium phosphates 19 gram-7 118 ml [place] DAILY PRN Constipation 08/24/22 08/24/22 Unknown gram/118 mL enema (Fleet Enema) Past Medical History Medical History Acoustic neuroma FOLLOWS DR MITCHELL - UPCOMING RADIATION TREATMENT AFTER CATARACT SURGERY Anxiety Chronic heart failure Complicated migraine "COMPLICATED MIGRAINES" - OCCUR OFTEN AND RESEMBLE SYMPTOMS OF A STROKE PER PT Diabetes INSULIN PUMP DVT prophylaxis GERD (gastroesophageal reflux disease) HX History of colon polyps History of high cholesterol History of TIA (transient ischemic attack) 2004 ,HX PT FOR, NO REMAINING RESIDUAL EFFECTS Hypertension HX BLOOD PRESSURE MEDICINE, ONCE A FIB DX - MED WAS D/C'D - PT REPORTS BLOOD PRESSURE USUALLY RUNS LOW AROUND 106/58 Mitral valve disorder DENIES Obesity Parkinson disease Permanent atrial fibrillation DX 2 YR AGO, NO HX CARDIOVERSION Stroke 08/16/22 treated at [facility]. still experiencing mild slurred speech at times, using a wheelchair, unable to ambulate at this time since her stroke. able to stand and pivot with assistance. Symptomatic stenosis of left carotid artery Past Family History Family History Mother Diabetes Congestive heart failure Colorectal cancer Hypertension Brother Congestive heart failure Colorectal cancer Sister Cancer Unknown Pancreatic cancer Son Family history of colonic polyps Past Surgical History Surgical History (Updated 08/24/22 @ 14:55 by Wendy Hitchcock PA-C) H/O breast biopsy 10/26/17 LMA#4. 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 S/P appendectomy HX S/P cholecystectomy HX Social History Smoking Status: Never smoker Do You Dip or Chew Tobacco: No Hx Alcohol Use: No Alcohol type: beer and wine alcohol intake frequency: holidays/special occasions only Hx Substance Use: No substance use type: does not use Lab Results Anesthesia Preop Results Results Anesthesia Widget: WBC 4.68 K/ul (4.8-10.8) L 08/20/22 Hgb 14.3 g/dl (12.0-16.0) 08/20/22 Hct 41.6 % (37.0-47.0) 08/20/22 Plt 196 K/uL (130-400) 08/20/22 Na 139 mmol/L (136-145) 08/20/22 K 3.7 mmol/L (3.5-5.1) 08/20/22 Cl 106 mmol/L (98-107) 08/20/22 CO2 29 mmol/L (21-32) 08/20/22 BUN 17 mg/dl (6-23) 08/20/22 Creat 0.67 mg/dl (0.6-1.2) 08/20/22 Glucose Level 133 mg/dl (70-99(Fasting)) H 08/20/22 POC Glucose 200 mg/dl (70-99) H 08/20/22 PT 13.7 Seconds (9.0-12.0) H 08/17/22 PTT 24.5 Seconds (21.0-31.0) 08/16/22 INR 1.3 (0.9-1.1) H 08/17/22 HA1c 7.2 % (4.5-5.6) H 08/17/22 Urine Color Yellow 08/16/22 Urine Appearance Cloudy (Clear) A 08/16/22 Urine pH 5.5 (4.5-7.5) 08/16/22 Urine Specific [place] > 1.045 (1.000-1.030) H 08/16/22 Urine Protein Negative (Negative) 08/16/22 Urine Glucose (UA) 1+ (Negative) H 08/16/22 Urine Ketones Trace (Negative) H 08/16/22 Urine Blood Negative (Negative) 08/16/22 Urine Nitrite Negative (Negative) 08/16/22 Urine Bilirubin Negative (Negative) 08/16/22 Urine Urobilinogen Negative (Negative) 08/16/22 Urine Leukocyte Esterase Trace (Negative) H 08/16/22 Urine WBC (Auto) 5-10 /hpf (0-5) H 08/16/22 Urine RBC (Auto) 0-4 /hpf (0-4) 08/16/22 Urine Hyaline Casts (Auto) 1-5 /lpf (0-5) 08/16/22 Urine Epithelial Cells (Auto) >30 /lpf (0-5) H 08/16/22 Urine Bacteria (Auto) Negative (Negative) 08/16/22 SARS-CoV-2, RNA, NAAT NEGATIVE (NEGATIVE) 08/16/22 Testing Electrocardiogram Date: 08/16/22 Poor data quality Afib, rate 84 bpm Left anterior fascicular block Poor R wave progression, consider anterior NJ vs lead placement vs LVH Chest X-Ray Date: 06/18/22 1. Cardiomegaly without acute process. 2. No acute displaced rib fracture or pneumothorax identified. 3. Chronic posterolateral right fourth rib fracture. Echocardiogram Date: 08/17/22 EF 60-65% No regional wall motion abnormalities noted Mild cLVH Mild mitral regurgitation Cervical Spine Date: 05/22/22 CT 1. There is no evidence of fracture or subluxation involving the cervical spine. 2. Osteopenia and spondylotic change as above. Other Testing Brain MRI 08/16/22 1. Acute infarct within the cortex of the left frontal lobe, as described above. No mass effect. No evidence for hemorrhage. 2. Equivocal additional acute infarct within left occipital lobe which is probably artifactual. 3. 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 Head and neck CTA 08/16/22 1. No significant stenosis, occlusion, or aneurysm within the [place]. 2. There is a focal area of 90% stenosis within the proximal left internal carotid artery which has progressed in the interval. 3. No significant stenosis, occlusion, or dissection within the right carotid or vertebral arteries. 4. No change in the 2 cm right cerebellopontine angle lesion which likely represents an acoustic neuroma. Head CT 08/16/22 No significant change compared to the prior study. No acute intracranial abnormality. Stable right cerebellopontine angle cistern lesion suggestive of an acoustic neuroma. Abdomen pelvis CT 05/22/22 1. There is no evidence of solid organ injury in the abdomen or pelvis on this unenhanced examination. 2. Left-sided nephrolithiasis. 3. There is no bowel obstruction. 4. Additional findings as above.
--- NOTE | 2022-08-24 15:32 | PAT Medication Instructions ---
Medication Instructions Date of Service August 24, 2022 Home Medications aspirin 81 mg tablet,delayed release (Yariel Low Dose Aspirin) 81 mg PO HS lorazepam 0.5 mg tablet 0.5 mg PO BID PRN rivaroxaban 20 mg tablet (Xarelto) 20 mg PO QPM carbidopa 25 mg-levodopa 100 mg tablet 2 tab PO QID flash glucose sensor (FreeStyle Ruben 2 Sensor kit) gabapentin 300 mg capsule 300 mg PO BID amantadine HCl 100 mg capsule 100 mg PO AMHS blood sugar diagnostic (PennantTouch Verio test strips) atorvastatin 40 mg tablet 40 mg PO QAM bisacodyl 10 mg rectal suppository 10 mg [place] DAILY PRN clopidogrel 75 mg tablet (Plavix) 75 mg PO UD fluticasone propionate 50 mcg/actuation nasal spray,suspension (Flonase Allergy Relief) 2 spray intranasal QAM insulin glargine 100 unit/mL (3 mL) subcutaneous pen (Lantus Solostar U-100 Insulin) 10 unit subcut BID insulin regular human 100 unit/mL injection solution (Humulin R Regular U-100 Insulin) 1 sliding scale dose subcut USEASDIRECTD loratadine 10 mg tablet 10 mg PO DAILY PRN magnesium hydroxide 2,400 mg/10 mL oral suspension (Milk Of Magnesia Concentrated) 30 ml PO DAILY PRN ondansetron 4 mg disintegrating tablet 4 mg PO Q4H PRN pantoprazole 40 mg tablet,delayed release (Protonix) 40 mg PO QAM polyethylene glycol 3350 17 gram/dose oral powder (Miralax) 17 g PO QDL PRN sennosides 8.6 mg tablet (Senokot) 8.6 mg PO QDL PRN sodium phosphates 19 gram-7 gram/118 mL enema (Fleet Enema) 118 ml AR DAILY PRN Continue as directed amantadine HCl 100 mg capsule 100 mg PO AMHS ondansetron 4 mg disintegrating tablet 4 mg PO Q4H PRN(if needed) ASK your prescriber and surgeon aspirin 81 mg tablet,delayed release (Yariel Low Dose Aspirin) 81 mg PO HS rivaroxaban 20 mg tablet (Xarelto) 20 mg PO QPM clopidogrel 75 mg tablet (Plavix) 75 mg PO UD DO NOT take the morning of surgery bisacodyl 10 mg rectal suppository 10 mg AR DAILY PRN loratadine 10 mg tablet 10 mg PO DAILY PRN magnesium hydroxide 2,400 mg/10 mL oral suspension (Milk Of Magnesia Concentrated) 30 ml PO DAILY PRN polyethylene glycol 3350 17 gram/dose oral powder (Miralax) 17 g PO QDL PRN sennosides 8.6 mg tablet (Senokot) 8.6 mg PO QDL PRN sodium phosphates 19 gram-7 gram/118 mL enema (Fleet Enema) 118 ml AR DAILY PRN insulin regular human 100 unit/mL injection solution (Humulin R Regular U-100 Insulin) 1 sliding scale dose subcut USEASDIRECTD Take morning of surgery With a small sip of water, OTHERWISE NOTHING TO EAT OR DRINK AFTER MIDNIGHT: lorazepam 0.5 mg tablet 0.5 mg PO BID PRN(if needed) carbidopa 25 mg-levodopa 100 mg tablet 2 tab PO QID gabapentin 300 mg capsule 300 mg PO BID atorvastatin 40 mg tablet 40 mg PO QAM fluticasone propionate 50 mcg/actuation nasal spray,suspension (Flonase Allergy Relief) 2 spray intranasal QAM pantoprazole 40 mg tablet,delayed release (Protonix) 40 mg PO QAM Take evening before surgery lorazepam 0.5 mg tablet 0.5 mg PO BID PRN(if needed) carbidopa 25 mg-levodopa 100 mg tablet 2 tab PO QID gabapentin 300 mg capsule 300 mg PO BID Insulin Dependent Diabetic Patients * Test your blood sugar the morning of surgery * If Blood Sugar is GREATER THAN 150, take HALF of your regular dose of: insulin glargine 100 unit/mL (3 mL) subcutaneous pen (Lantus Solostar U-100 Insulin)- take 5 units subcut BID. * If Blood Sugar is LESS THAN 150, DO NOT TAKE ANY: insulin glargine 100 unit/mL (3 mL) subcutaneous pen (Lantus Solostar U-100 Insulin). Other Notes If you have any questions please call us at [phone] or [phone] or [phone] or [phone]
--- NOTE | 2022-08-26 09:33 | History & Physical Report ---
Date of Service August 26, 2022 History of Present Illness Primary Care Provider: Damaris Vega MD August 17, 2022 Assessment & Plan (1) Symptomatic stenosis of left carotid artery: Pt with symptomatic L ICA stenosis of over 90%. Pt also seen by Dr Jay today. Recommends pt consider L TCAR procedure. Pt states her son signs her forms for her. Will attempt to discuss with him by phone. Pt is agreeable to this. Patient was seen, examined, and chart reviewed. Agree with exam and treatment plan of the Vascular PA. Thank you very much for letting us participate in the care of this patient. History of Present Illness Reason for Consultation: Juan C CHAN CVA Attending Physician: Selene Bridges MD History of Present Illness 77 yo f with hx of parkinson's disease, a fib on xarelto, DMII, CHF, peripheral neuropathy, diabetic retinopathy, admitted after her family noted expressive aphasia on the phone yesterday, seen in consultation today for L ICA stenosis noted on CTA neck. Pt states no prior similar sx. States she lives alone, but does have family that checks on her frequently. She is a fair historian despite her dx of parkinson's dementia. Pt admits adrien horse cramps in bed at night. Denies LOYA, fever, chest pain, palpitations, abd pain, N/V, recent illness, rest pain, claudication, other complaints. No prior knowledge of the carotid stenosis, ore previous CVA in past. CTA neck demonstrates over 90% stenosis of L ICA. MRI brain demonstrates L hemispheric CVA. Allergies Allergy/AdvReac Type Severity Reaction Status Date / Time benztropine Allergy Unknown PT NOT SURE Verified 08/16/22 19:20 citalopram Allergy Unknown PT NOT SURE Verified 08/16/22 19:20 doxycycline Allergy Unknown REMOTE HX, Verified 08/16/22 19:20 PT NOT SURE B REACTION minocycline Allergy Unknown REMOTE HX, Verified 08/16/22 19:20 PT NOT SURE REACTION simvastatin Allergy Unknown PT NOT SURE Verified 08/16/22 19:20 sulindac Allergy Unknown PT NOT SURE Verified 08/16/22 19:20 empagliflozin AdvReac Intermediate Recurrent Verified 08/16/22 19:20 [From Jardiance] Urinary Tract Infection Home Medications Medication Instructions Recorded Confirmed Type aspirin 81 mg tablet,delayed 81 mg PO HS 01/19/19 08/16/22 History release (Yariel Low Dose Aspirin) lorazepam 0.5 mg tablet 0.5 mg PO BID PRN Anxiety 11/08/19 08/16/22 History rivaroxaban 20 mg tablet (Xarelto) 20 mg PO QPM 11/08/19 08/16/22 History carbidopa 25 mg-levodopa 100 mg 2 tab PO QID 02/07/20 08/16/22 History tablet flash glucose sensor (FreeStyle #1 ea 09/02/20 07/21/22 History Ruben 2 Sensor kit) gabapentin 300 mg capsule 300 mg PO BID 10/15/21 08/16/22 History amantadine HCl 100 mg capsule 100 mg PO AMHS 01/13/22 08/16/22 History blood sugar diagnostic (OneTouch #10 ea 01/13/22 07/21/22 History Verio test strips) cetirizine 10 mg tablet (Zyrtec) 10 mg PO DAILY PRN Allergy Symptoms 01/13/22 08/16/22 History insulin aspart U-100 100 unit/mL See Rx Instructions .Route 06/03/22 08/16/22 Rx subcutaneous solution (Novolog .COMPLEX #0 mL U-100 Insulin aspart) Patient History Medical History(Updated 08/17/22 @ 09:43 by Gianna Diamond PA-C) Acoustic neuroma FOLLOWS DR MITCHELL - UPCOMING RADIATION TREATMENT AFTER CATARACT SURGERYAnxiety Chronic heart failure Complicated migraine "COMPLICATED MIGRAINES" - OCCUR OFTEN AND RESEMBLE SYMPTOMS OF A STROKE PER PTDiabetes INSULIN PUMPDVT prophylaxis GERD (gastroesophageal reflux disease) HXHistory of colon polyps History of high cholesterol History of TIA (transient ischemic attack) 2004 ,HX PT FOR, NO REMAINING RESIDUAL EFFECTSHypertension HX BLOOD PRESSURE MEDICINE, ONCE A FIB DX - MED WAS D/C'D - PT REPORTS BLOOD PRESSURE USUALLY RUNS LOW AROUND 106/58Mitral valve disorder DENIESObesity Parkinson disease Permanent atrial fibrillation DX 2 YR AGO, NO HX CARDIOVERSIONSymptomatic stenosis of left carotid artery Surgical History H/O breast biopsy 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History of left knee replacement S/P appendectomy HXS/P cholecystectomy HX Family History Mother Diabetes Congestive heart failure Colorectal cancer HypertensionBrother Congestive heart failure Colorectal cancerSister CancerUnknown Pancreatic cancerSon Family history of colonic polyps Social History Smoking Status: Never smoker Second Hand Exposure: No; Do You Dip or Chew Tobacco: No; Hx Alcohol Use: No Hx Substance Use: No Preferred Language: [place]ese Communication Ability: Impaired Visual Impairment: No Limitations Dispensing Lead Required: No Beliefs That Will Affect Care: None marital status: Unknown Current Living Situation: Family Current Living Situation Comment: condo How many Children do You have: 2 Other Information That Helps Us Care for You: No Feels Safe at Home: Yes Safety Concerns: Feels Safe At This Time Assistive Devices: Walker Review of Systems Review of Systems: All systems reviewed & are unremarkable except as noted in HPI & below Physical Exam Constitutional: WD/WN, vitals as above well developed, + thin, cooperative and comfortable; not in distress ENMT: Ears: + hearing impairment (R ear) Neck: trachea midline Respiratory: normal respiratory effort Auscultation: lungs clear to auscultation bilaterally and + diminished lung sounds Cardiovascular: Rate/Rhythm: regular rate and regular rhythm Vessels: posterior tibial pulses present (+1 LLE, nonpalpable RLE), dorsalis pedis pulses present (+1 LLE, nonpalpable RLE) and radial pulses present; + abnormal peripheral pulses Extremities: normal capillary refill; no edema Gastrointestinal (Abdomen): Inspection/Auscultation: abdomen normal to inspection and normal bowel sounds Percussion/Palpation: abdomen soft; abdomen nontender Musculoskeletal: no cyanosis or clubbing, extremities motor strength 5/5 Skin: no rashes, warm and dry Neurologic: moves all extremities and awake; no focal motor deficits (prior aphasia appears improved/resolved) and not confused Speech / Cognition: normal speech Psychiatric: A+Ox3, euthymic affect Signed By: <Electronically signed by Gianna Diamond PA-C> 08/17/22 0947 <Electronically signed by Corky Jay MD> 08/17/22 1010 Created:08/17/22 0935 The status of this report isSigned. Draft = Not yet reviewed or approved by Medical Physician. Signed = Reviewed and approved by Medical Physician. Allergies Allergy/AdvReac Type Severity Reaction Status Date / Time benztropine Allergy Unknown PT NOT SURE Verified 08/24/22 09:35 citalopram Allergy Unknown PT NOT SURE Verified 08/24/22 09:35 doxycycline Allergy Unknown REMOTE HX, Verified 08/24/22 09:35 PT NOT SURE REACTION minocycline Allergy Unknown REMOTE HX, Verified 08/24/22 09:35 PT NOT SURE REACTION simvastatin Allergy Unknown PT NOT SURE Verified 08/24/22 09:35 sulindac Allergy Unknown PT NOT SURE Verified 08/24/22 09:35 empagliflozin AdvReac Intermediate Recurrent Verified 08/24/22 09:35 [From Jardiance] Urinary Tract Infection Home Medications Medication Instructions Recorded Confirmed Type aspirin 81 mg tablet,delayed 81 mg PO HS 01/19/19 08/24/22 History release (Yariel Low Dose Aspirin) lorazepam 0.5 mg tablet 0.5 mg PO BID PRN Anxiety 11/08/19 08/24/22 History rivaroxaban 20 mg tablet (Xarelto) 20 mg PO QPM 11/08/19 08/24/22 History carbidopa 25 mg-levodopa 100 mg 2 tab PO QID 02/07/20 08/24/22 History tablet flash glucose sensor (FreeStyle #1 ea 09/02/20 07/21/22 History Ruben 2 Sensor kit) gabapentin 300 mg capsule 300 mg PO BID 10/15/21 08/24/22 History amantadine HCl 100 mg capsule 100 mg PO AMHS 01/13/22 08/24/22 History blood sugar diagnostic (OneTouch #10 ea 01/13/22 07/21/22 History Verio test strips) atorvastatin 40 mg tablet 40 mg PO QAM 08/24/22 08/24/22 History bisacodyl 10 mg rectal suppository 10 mg IN DAILY PRN Constipation 08/24/22 08/24/22 History clopidogrel 75 mg tablet (Plavix) 75 mg PO UD 08/24/22 08/24/22 History fluticasone propionate 50 2 spray intranasal QAM 08/24/22 08/24/22 History mcg/actuation nasal spray,suspension (Flonase Allergy Relief) insulin glargine 100 unit/mL (3 10 unit subcut BID 08/24/22 08/24/22 History mL) subcutaneous pen (Lantus Solostar U-100 Insulin) insulin regular human 100 unit/mL 1 sliding scale dose subcut 08/24/22 08/24/22 History injection solution (Humulin R USEASDIRECTD Regular U-100 Insulin) loratadine 10 mg tablet 10 mg PO DAILY PRN seasonal 08/24/22 08/24/22 History allergies magnesium hydroxide 2,400 mg/10 mL 30 ml PO DAILY PRN Constipation 08/24/22 08/24/22 History oral suspension (Milk Of Magnesia Concentrated) ondansetron 4 mg disintegrating 4 mg PO Q4H PRN nausea or vomiting 08/24/22 08/24/22 History tablet pantoprazole 40 mg tablet,delayed 40 mg PO QAM 08/24/22 08/24/22 History release (Protonix) polyethylene glycol 3350 17 17 g PO QDL PRN Constipation 08/24/22 08/24/22 History gram/dose oral powder (Miralax) sennosides 8.6 mg tablet (Senokot) 8.6 mg PO QDL PRN Constipation 08/24/22 08/24/22 History sodium phosphates 19 gram-7 118 ml IN DAILY PRN Constipation 08/24/22 08/24/22 History gram/118 mL enema (Fleet Enema) Past Med/Surg History Medical History Acoustic neuroma FOLLOWS DR MITCHELL - UPCOMING RADIATION TREATMENT AFTER CATARACT SURGERY Anxiety Chronic heart failure Complicated migraine "COMPLICATED MIGRAINES" - OCCUR OFTEN AND RESEMBLE SYMPTOMS OF A STROKE PER PT Diabetes INSULIN PUMP DVT prophylaxis GERD (gastroesophageal reflux disease) HX History of colon polyps History of high cholesterol History of TIA (transient ischemic attack) 2004 ,HX PT FOR, NO REMAINING RESIDUAL EFFECTS Hypertension HX BLOOD PRESSURE MEDICINE, ONCE A FIB DX - MED WAS D/C'D - PT REPORTS BLOOD PRESSURE USUALLY RUNS LOW AROUND 106/58 Mitral valve disorder DENIES Obesity Parkinson disease Permanent atrial fibrillation DX 2 YR AGO, NO HX CARDIOVERSION Stroke 08/16/22 treated at [facility]. still experiencing mild slurred speech at times, using a wheelchair, unable to ambulate at this time since her stroke. able to stand and pivot with assistance. Symptomatic stenosis of left carotid artery Surgical History H/O breast biopsy 10/26/17 LMA#4. 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 S/P appendectomy HX S/P cholecystectomy HX Family History Mother Diabetes Congestive heart failure Colorectal cancer Hypertension Brother Congestive heart failure Colorectal cancer Sister Cancer Unknown Pancreatic cancer Son Family history of colonic polyps Social History Smoking Status: Never smoker Second Hand Exposure: No; Hx Alcohol Use: No Hx Substance Use: No Preferred Language: [place]ese Communication Ability: Effective Visual Impairment: No Limitations Dispensing Lead Required: No Beliefs That Will Affect Care: None marital status: Unknown Current Living Situation Comment: currently at [facility] for rehab since stroke How many Children do You have: 2 Feels Safe at Home: Yes Assistive Devices: Glasses, Hospital Bed, Raised Toilet Seat, Walker and Wheelchair Review of Systems All systems reviewed & are unremarkable except as noted in HPI & below
[~2022-08-26 10:33] MED LIST changes: -ASPI-319 PO; -BNC/20 PO; -CARB25TA12 PO; +CEFAZOLIN 2,000 MG/15 ML SYR IV SCH; -CLOP1TAB15 PO; -CYCL0.052 OPB; -ESCI10TA17 PO; -FURO-85 PO; -INSPMPHMLG; -LORA-741 PO; +LR 15ML/HR IV SCH; -METO25TA3 PO; -NRN/300 PO; -NXM/40 PO; +SODIUM CHLORIDE 0.9% 1000ML 1,000 ML IV SCH
[2022-08-26] MEDS ORDERED: fentaNYL citrate PF 100 MCG/2 ML VIAL ONE ×2 (11:57→14:56)
[2022-08-26 11:58] LABS: BUN Creatinine Ratio 22.1 (10-20); Calcium 9.7 mg/dl (8.5-10.1); Creatinine Clr Calc Pharmacy 64.2 ml/min; Est GFR (African American) 86.9 ml/min; Potassium 4.6 mmol/L (3.5-5.1)
[2022-08-26] MEDS ORDERED: LIDOCAINE 2% MPF LOCAL 5 ML VIAL INFIL ONE (12:01)
[2022-08-26] MEDS ORDERED: PROPOFOL IV EMULSION 10 MG/ML 20 ML VIAL IV ONE (12:01)
[2022-08-26] MEDS ORDERED: ONDANSETRON INJ 2 MG/ML 2 ML VIAL ONE (12:02)
[2022-08-26] MEDS ORDERED: ROCURONIUM BROMIDE 10 MG/ML 5 ML VIAL IV ONE (12:02)
[2022-08-26] MEDS ORDERED: GELATIN SPONGE SZ 100 ONE (12:51)
[2022-08-26] MEDS ORDERED: THROMBIN FOR SOLN 20000 UNIT KIT ONE (12:51)
[2022-08-26] MEDS ORDERED: ceFAZolin 330 MG/ML 1 GM VIAL ONE (12:51)
[2022-08-26] MEDS ORDERED: BUPIVACAINE/EPINEPHRINE 0.5% MPF 1:200,000 30 ML VIAL ONE (12:52)
[2022-08-26] MEDS ORDERED: GLYCOPYRROLATE 0.2 MG/ML VIAL ONE (14:09)
[2022-08-26] MEDS ORDERED: SURGICEL ABSORB HEMOSTAT 2IN X 14IN TOP ONE (14:09)
[2022-08-26] MEDS ORDERED: VISIPAQUE IV ONE (14:09)
[2022-08-26] MEDS ORDERED: HEPARIN SOD (PORCINE) 1000 UNIT/ML ONE (14:09)
[2022-08-26] MEDS ORDERED: PROTAMINE SULFATE 10 MG/ML 5 ML VIAL IV ONE (14:45)
[2022-08-26] MEDS ORDERED: SUGAMMADEX SODIUM 200 MG/2 ML VIAL IV ONE (14:45)
--- NOTE | 2022-08-26 15:15 | Procedure Note ---
Angiogram Post Procedure Fluoroscopy Time (minutes): 7.4 Radiation (mGy): 50 Contrast: 25 Post Operative Report Pre & Post Diagnosis Operation Date: 08/26/22 12:30 Pre-Op Diagnosis: Left Internal Carotid Artery Stenosis Post-Op Diagnosis: Left Internal Carotid Artery Stenosis I identified the patient and participated in the time-out.: Yes Procedure Operation Date: 08/26/22 12:30 Actual Procedures p Left Transcarotid Artery Revascularization(Left), ultrasound localization of right common femoral vein- Corky Jay MD Surgeon Corky Jay MD Skip Tracer Ham,PAC Estimated Blood Loss 70 Findings Consistent with Post-Op Diagnosis Specimens none Anesthesia Type General Complications none Disposition Accompanied Patient To Recovery: No Disposition: Recovery Room Indications This is a 77-year-old female who presented last week with aphasia. She was found to have a severe stenosis of her left internal carotid artery origin. Endarterectomy versus TCAR were discussed with the patient. She elected to go ahead with a TCAR procedure. I have discussed the risks options and benefits of the procedure with the patient. The patient understands the risks options and benefits and agrees to the procedure. Description of Procedure The patient was taken to the operating room and placed in supine position. After general anesthesia was accomplished the groins and left side of the neck and chest were prepped and draped in a sterile manner. Timeout was performed and the patient was identified. A transverse incision was made just above the clavicle between the heads of the sternocleidomastoid. This was carried down to where the common carotid artery was identified. It was isolated and slung with an umbilical tape. A 5-0 Prolene U stitch was placed in the common carotid artery. It was given 8000units of heparin at that time. Ultrasound was then used to localize the right common femoral vein. The vein was patent and compressed easily. Under ultrasound guidance the right common femoral vein was punctured and the venous sheath was inserted. This was aspirated and flushed with heparinized saline. An ACT at that time was 352. Using micropuncture technique the common carotid artery was punctured. The micro sheath was inserted to 3 cm. Injection was then done showing the bifurcation. There was a significant lesion seen at the origin of the internal carotid artery on the left side. The microwire was then inserted. During exchange of the wire and the sheath pulled out of the carotid artery. The 5-0 Prolene suture was then tied. We then ready punctured the common carotid artery higher up. The microwire and sheath was inserted. Another angiogram was performed which showed the origin of the internal carotid artery. We then inserted the microwire. It was felt to have gone into the dissection plane. This was confirmed by injection of a small amount of contrast. This was then pulled and the suture tied. We then placed another 5-0 Prolene U stitch more proximal laterally. The common carotid was then punctured again. A microsheath was inserted. Hand-injection this time showed good flow into the external/internal carotid arteries could see the dissection plane on the common carotid artery. We reinserted the micro wire and passed it into the external carotid. It passed very easily. We then advanced the dilator and sheath into the external carotid. The dilater and sheath were removed. We then inserted the J-wire into the external carotid artery. The TCAR sheath was inserted. Once it was in place and held against the artery it was sutured to the chest wall and the incision edge. We then flushed the tubing appropriately. The venous return tubing was clamped onto the TCAR sheath. It was flushed through and then attached to the venous inflow sheath in the right groin. The sheath was checked for flow. We then inserted a 5 x 2 balloon backloaded on the wire. The wire was passed through the lesion into the petrous portion of the internal carotid. The 4 balloon was then advanced to the lesion. The lesion was then predilated with the 4 mm balloon. The balloon was removed. We then inserted the 8 x 40 stent. This was deployed across the lesion without difficulty. The catheter was removed. The carotid was allowed to go 2 minutes with flow reversal. Completion angiogram was done at that time which showed no residual stenosis. We then inserted a 9 x 30 stent overlapped with the previously placed stent, and cover the dissected area. Completion angio done at this time showed good flow. A dissection lumen could not be seen. The wire was removed we allowed 2 minutes of flow reversal to occur. A that point the common carotid artery was unclamped. The venous return tubing was clamped and removed from the TCAR sheath. The blood was allowed to flow back into the venous system. Once this was completed the sheath was pulled from the groin and pressure was applied. The TCAR sheath was then removed and the 5-0 Prolene suture securely tied. Hemostasis was noted of the puncture site. Wound was irrigated with Ancef solution. Adequate hemostasis was obtained of the wound. Once this was noted the wound was closed in usual fashion using a 3-0 Vicryl suture for the subcutaneous layer and a 4-0 subcuticular Vicryl suture for the skin edges. Dermabond was used for dressing.The patient left the operation room in satisfactory condition and tolerated the procedure well. All needle and sponge counts were correct at the end of the procedure. Gianna Diamond Pac assisted due to lack of resident availability and was necessary for positioning, draping, retraction, wound closure deep layers, subcutaneous tissue, and skin closure and was necessary for assisting with the case. I attest to the content of the Intraoperative Record and any orders documented therein. Any exceptions are noted below.
[2022-08-26] MEDS ORDERED: PHENYLEPHRINE/NSS 25 MG/250 ML BAG IV PRN (16:07)
[2022-08-26] MEDS ORDERED: ePHEDrine sulfate 50 MG/ML AMP IV PRN (16:08)
[2022-08-26] MEDS ORDERED: ATROPINE SULFATE 0.1 MG/ML 10ML SYR IV PRN (16:08)
[2022-08-26] MEDS ORDERED: fentaNYL citrate PF 100 MCG/2 ML VIAL IV PRN (16:08)
--- NOTE | 2022-08-26 16:14 | Anesthesiology Progress Note ---
Date of Service August 26, 2022 Anesthesia Post Procedure Vital Signs Vital Signs: Temp Pulse Pulse Resp BP BP Pulse Ox 08/26/22 16:05 78 16 93/47 L 98 08/26/22 15:55 84 16 107/61 100 08/26/22 15:45 78 14 111/60 100 08/26/22 15:35 80 14 189/83 H 100 08/26/22 15:29 36.2 C L 80 82 16 185/74 H 100 08/26/22 11:32 36.7 C 82 20 179/70 H 177/76 H 99 O2 Del Method O2 Flow Rate 08/26/22 16:05 Room Air 08/26/22 15:55 Oxymask 6 08/26/22 15:45 Oxymask 6 08/26/22 15:35 Oxymask 6 08/26/22 15:29 Oxymask 9 08/26/22 11:32 Room Air Transfer of Care Handoff Completed per policy Notes Mental Status: alert / awake / arousable and participated in evaluation Patient Amnestic to Procedure: Yes Nausea / Vomiting: adequately controlled Pain: adequately controlled Airway Patency, RR, SpO2: stable & adequate BP & HR: stable & adequate Hydration State: stable & adequate Anesthetic Complications: no major complications apparent
[2022-08-26] MEDS ORDERED: SOD PHOSPHATE/SOD BIPHOSPHATE ENEMA 132 ML BTL PR PRN (16:59)
[2022-08-26] MEDS ORDERED: SENNA 8.6 MG TAB PO PRN (16:59)
[2022-08-26] MEDS ORDERED: bisacodyL 10 MG SUPP PR PRN (16:59)
[2022-08-26] MEDS ORDERED: LORATADINE 10 MG TAB PO PRN (16:59)
[2022-08-26] MEDS ORDERED: POLYETHYLENE (MIRALAX) 17 GM PACK PO PRN (16:59)
[2022-08-26] MEDS ORDERED: ONDANSETRON 4 MG OD TAB PO PRN (16:59)
[2022-08-26] MEDS ORDERED: PHARMACY GLYCEMIC MGMT CONSULT PRN (16:59)
[2022-08-26] MEDS ORDERED: MAGNESIUM HYDROXIDE SUSP 30 ML UDC PO PRN (17:05)
[2022-08-26] MEDS ORDERED: CARBOHYDRATES FOR HYPOGLYCEMIA PO PRN (17:30)
[2022-08-26] MEDS ORDERED: GLUCOSE 10 TAB/TUBE PO PRN (17:30)
[2022-08-26] MEDS ORDERED: DEXTROSE 50% 50 ML SYRINGE IV PRN (17:30)
[2022-08-26] MEDS ORDERED: GLUCOSE 40% GEL 15 GM TUBE PO PRN (17:30)
[2022-08-26] MEDS ORDERED: GLUCAGON FOR INJ 1 MG VIAL IM PRN (17:30)
--- NOTE | 2022-08-26 17:30 | Critical Care Consultation ---
Date of Consultation August 26, 2022 Assessment & Plan (1) Status post carotid surgery: General management per vascular surgery team. No issues with hemodynamics or airway compromise noted at this time. Continue close monitoring of blood pressure via arterial line. ICU team remains available should the need arise. Thank you for allowing me to participate in the care of this patient. Please call with questions. History of Present Illness Reason for Consultation: Postop monitoring after left TCAR Attending Physician: Corky Jay MD History of Present Illness Chart reviewed. 77-year-old female with a history of CHF, acoustic neuroma, peripheral neuropathy, diabetic retinopathy, A-fib on Xarelto Parkinson's disease who presented today for an elective left TCAR. She had an acute CVA earlier this month and was discharged on 08/20/2022. She was found to have 90% stenosis of the proximal left carotid artery. She is currently hemodynamically stable and has an arterial line in place. She is complaining of mild pain around the incision site. Echo 08/17/2022 with a normal LVEF of 60 to 65%. Mild mitral regurgitation. Allergies Allergy/AdvReac Type Severity Reaction Status Date / Time benztropine Allergy Unknown PT NOT SURE Verified 08/26/22 11:18 citalopram Allergy Unknown PT NOT SURE Verified 08/26/22 11:18 doxycycline Allergy Unknown REMOTE HX, Verified 08/26/22 11:18 PT NOT SURE REACTION minocycline Allergy Unknown REMOTE HX, Verified 08/26/22 11:18 PT NOT SURE REACTION simvastatin Allergy Unknown PT NOT SURE Verified 08/26/22 11:18 sulindac Allergy Unknown PT NOT SURE Verified 08/26/22 11:18 empagliflozin AdvReac Intermediate Recurrent Verified 08/26/22 11:18 [From Jardiance] Urinary Tract Infection Home Medications Medication Instructions Recorded Confirmed Type aspirin 81 mg tablet,delayed 81 mg PO HS 01/19/19 08/24/22 History release (Yariel Low Dose Aspirin) lorazepam 0.5 mg tablet 0.5 mg PO BID PRN Anxiety 11/08/19 08/24/22 History rivaroxaban 20 mg tablet (Xarelto) 20 mg PO QPM 11/08/19 08/26/22 History carbidopa 25 mg-levodopa 100 mg 2 tab PO QID 02/07/20 08/24/22 History tablet flash glucose sensor (FreeStyle #1 ea 09/02/20 07/21/22 History Ruben 2 Sensor kit) gabapentin 300 mg capsule 300 mg PO BID 10/15/21 08/26/22 History amantadine HCl 100 mg capsule 100 mg PO AMHS 01/13/22 08/24/22 History blood sugar diagnostic (OneTouch #10 ea 01/13/22 07/21/22 History Verio test strips) atorvastatin 40 mg tablet 40 mg PO QAM 08/24/22 08/24/22 History bisacodyl 10 mg rectal suppository 10 mg WA DAILY PRN Constipation 08/24/22 08/26/22 History clopidogrel 75 mg tablet (Plavix) 75 mg PO UD 08/24/22 08/24/22 History fluticasone propionate 50 2 spray intranasal QAM 08/24/22 08/26/22 History mcg/actuation nasal spray,suspension (Flonase Allergy Relief) insulin glargine 100 unit/mL (3 10 unit subcut BID 08/24/22 08/26/22 History mL) subcutaneous pen (Lantus Solostar U-100 Insulin) insulin regular human 100 unit/mL 1 sliding scale dose subcut 08/24/22 08/26/22 History injection solution (Humulin R USEASDIRECTD Regular U-100 Insulin) loratadine 10 mg tablet 10 mg PO DAILY PRN seasonal 08/24/22 08/26/22 History allergies magnesium hydroxide 2,400 mg/10 mL 30 ml PO DAILY PRN Constipation 08/24/22 08/24/22 History oral suspension (Milk Of Magnesia Concentrated) ondansetron 4 mg disintegrating 4 mg PO Q4H PRN nausea or vomiting 08/24/22 08/26/22 History tablet pantoprazole 40 mg tablet,delayed 40 mg PO QAM 08/24/22 08/26/22 History release (Protonix) polyethylene glycol 3350 17 17 g PO QDL PRN Constipation 08/24/22 08/26/22 History gram/dose oral powder (Miralax) sennosides 8.6 mg tablet (Senokot) 8.6 mg PO QDL PRN Constipation 08/24/22 08/26/22 History sodium phosphates 19 gram-7 118 ml WA DAILY PRN Constipation 08/24/22 08/26/22 History gram/118 mL enema (Fleet Enema) Patient History Medical History (Updated 08/26/22 @ 11:28 by Josie Salas RN) Acoustic neuroma FOLLOWS DR MITCHELL - UPCOMING RADIATION TREATMENT AFTER CATARACT SURGERY Anxiety Chronic heart failure Complicated migraine "COMPLICATED MIGRAINES" - OCCUR OFTEN AND RESEMBLE SYMPTOMS OF A STROKE PER PT Diabetes INSULIN PUMP DVT prophylaxis GERD (gastroesophageal reflux disease) HX H/O head and neck radiation History of colon polyps History of high cholesterol History of TIA (transient ischemic attack) 2004 ,HX PT FOR, NO REMAINING RESIDUAL EFFECTS Hypertension HX BLOOD PRESSURE MEDICINE, ONCE A FIB DX - MED WAS D/C'D - PT REPORTS BLOOD PRESSURE USUALLY RUNS LOW AROUND 106/58 Mitral valve disorder DENIES Obesity Parkinson disease Permanent atrial fibrillation DX 2 YR AGO, NO HX CARDIOVERSION Stroke 08/16/22 treated at [facility]. still experiencing mild slurred speech at times, using a wheelchair, unable to ambulate at this time since her stroke. able to stand and pivot with assistance. Symptomatic stenosis of left carotid artery Surgical History (Updated 08/26/22 @ 17:27 by Jaziel Alonso MD) H/O breast biopsy 10/26/17 LMA#4. 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 S/P appendectomy HX S/P cholecystectomy HX Status post carotid surgery Family History Mother Diabetes Congestive heart failure Colorectal cancer Hypertension Brother Congestive heart failure Colorectal cancer Sister Cancer Unknown Pancreatic cancer Son Family history of colonic polyps Social History Smoking Status: Never smoker Second Hand Exposure: No; Do You Dip or Chew Tobacco: No; Tobacco Cessation Education Requested by Patient: No Hx Alcohol Use: No Hx Substance Use: No Preferred Language: Macanese Communication Ability: Effective Visual Impairment: No Limitations Rnfa Required: No Beliefs That Will Affect Care: None marital status: Unknown Current Living Situation Comment: currently at [facility] since stroke How many Children do You have: 2 Feels Safe at Home: Yes Safety Concerns: Feels Safe At This Time Assistive Devices: Glasses, Hospital Bed, Raised Toilet Seat, Walker and Wheelchair Review of Systems Review of Systems: Limited due to the patient's history of Parkinson's dementia and mild delirium Physical Exam Physical Exam: Constitutional: Frail and elderly appearing female in no apparent distress. Eyes: Pupils are equal round and reactive to light. Conjunctivae are normal. Anicteric sclera. Ears nose, mouth and throat: Mallampati class 2. Normal posterior oropharynx. Uvula is midline. Neck: Large incision noted above the left clavicle. Bruising noted. No hematoma. No crepitus. Respiratory: Clear to auscultation bilaterally. No use of accessory muscles. No significant clubbing noted. Cardiovascular: Regular rate and rhythm. No murmurs. No edema. Gastrointestinal: Normal bowel sounds, soft, nontender and nondistended. No hepatosplenomegaly noted. Musculoskeletal: No cyanosis. Patient is able to move all extremities. Strength is 5 out of 5 in the upper and lower extremities. Skin: No rashes, warm dry and intact. Neurologic: No obvious focal neurological deficits seen. Psychiatric: Alert and orient x1 with flat affect. Results & Data Results & Data ([facility]) Vital Signs (Past 12 Hours) Vital Signs Temp Pulse Pulse Resp BP BP Pulse Ox 08/26/22 16:25 85 16 121/62 96 08/26/22 16:15 36.3 C L 82 14 170/71 H 98 08/26/22 16:05 78 16 93/47 L 98 08/26/22 15:55 84 16 107/61 100 08/26/22 15:45 78 14 111/60 100 08/26/22 15:35 80 14 189/83 H 100 08/26/22 15:29 36.2 C L 80 82 16 185/74 H 100 08/26/22 11:32 36.7 C 82 20 179/70 H 177/76 H 99 O2 Del Method O2 Flow Rate 08/26/22 16:25 Room Air 08/26/22 16:15 Room Air 08/26/22 16:05 Room Air 08/26/22 15:55 Oxymask 6 08/26/22 15:45 Oxymask 6 08/26/22 15:35 Oxymask 6 08/26/22 15:29 Oxymask 9 08/26/22 11:32 Room Air Coding Level of Care Code 44812 IN/OBS CONSULT LVL 2,35M Diagnoses Status post carotid surgery Z98.890
[2022-08-26] MEDS: LACTATED RINGER'S 1,000 ML IV SCH ×2 (17:33→22:55)
[2022-08-26] MEDS: oxyCODONE/ACETAMINOPHEN 5mg/325mg TAB PO PRN (17:33)
[2022-08-26] MEDS: CARBIDOPA/LEVODOPA 25/100MG TAB PO SCH ×2 (18:14→21:04)
[2022-08-26] MEDS: INSULIN ASPART PER UNIT CHARGE SC SCH ×2 (18:18→21:58)
[2022-08-26] MEDS: ceFAZolin 2000MG 2,000 MG/15 ML SYR IV SCH (20:36)
[2022-08-26] MEDS ORDERED: NON-FORMULARY MEDICATION (Insulin Glargine [Lantus Solostar U-100 Insulin] 100 unit/mL (3 SQ SCH (21:00)
[2022-08-26] MEDS ORDERED: LANTUS PER UNIT CHARGE SQ SCH (21:00)
[2022-08-26] MEDS: AMANTADINE HCL 100 MG CAPSULE PO SCH (21:03)
[2022-08-26] MEDS: ASPIRIN 81 MG ECTAB PO SCH (21:04)
[2022-08-26] MEDS: GABAPENTIN 300 MG CAP PO SCH (21:05)
[2022-08-26] MEDS: RIVAROXABAN 20 MG TAB PO SCH (21:06)
[2022-08-26] MEDS: LANTUS PER UNIT CHARGE SQ SCH (21:58)
[2022-08-27] MEDS: ceFAZolin 2000MG 2,000 MG/15 ML SYR IV SCH (03:49)
[2022-08-27] MEDS: oxyCODONE/ACETAMINOPHEN 5mg/325mg TAB PO PRN ×3 (03:55→21:10)
[2022-08-27] MEDS: LACTATED RINGER'S 1,000 ML IV SCH ×2 (06:18→14:52)
[2022-08-27] MEDS: CLOPIDOGREL BISULFATE 75 MG TAB PO SCH (08:15)
[2022-08-27] MEDS: PANTOprazole 40 MG TAB PO SCH (08:15)
[2022-08-27] MEDS: ATORVASTATIN 40 MG TAB PO SCH (08:15)
[2022-08-27] MEDS: GABAPENTIN 300 MG CAP PO SCH ×2 (08:15→20:48)
[2022-08-27] MEDS: CARBIDOPA/LEVODOPA 25/100MG TAB PO SCH ×4 (08:16→20:48)
[2022-08-27] MEDS: AMANTADINE HCL 100 MG CAPSULE PO SCH ×2 (08:16→20:49)
[2022-08-27] MEDS: INSULIN ASPART PER UNIT CHARGE SC SCH ×4 (08:16→20:51)
[2022-08-27] MEDS: FLUTICASONE PROPIONATE NA SPR 16 GM BTL SCH (08:17)
[2022-08-27] MEDS: LANTUS PER UNIT CHARGE SQ SCH ×2 (08:18→20:52)
--- NOTE | 2022-08-27 08:53 | Critical Care Progress Note ---
Date of Service August 27, 2022 Assessment & Plan (1) Status post carotid surgery: Plan: General management per vascular surgery team. No issues with hemodynamics or airway compromise noted at this time. Continue close monitoring of blood pressure via arterial line. ICU team remains available should the need arise. Thank you for allowing me to participate in the care of this patient. Please call with questions. Admission and Anticipated Discharge Date Admission Date: August 26, 2022 Subjective Patient seen and examined. No significant change compared to yesterday. Pain better controlled. Hemodynamically stable. Review of Systems Review of Systems: Limited due to the patient's history of Parkinson's dementia and mild delirium Physical Exam Physical Exam: Constitutional: Frail and elderly appearing female in no apparent distress. Eyes: Pupils are equal round and reactive to light. Conjunctivae are normal. Anicteric sclera. Ears nose, mouth and throat: Mallampati class 2. Normal posterior oropharynx. Uvula is midline. Neck: Large incision noted above the left clavicle. Bruising noted. No hematoma. No crepitus. Respiratory: Clear to auscultation bilaterally. No use of accessory muscles. No significant clubbing noted. Cardiovascular: Regular rate and rhythm. No murmurs. No edema. Gastrointestinal: Normal bowel sounds, soft, nontender and nondistended. No hepatosplenomegaly noted. Musculoskeletal: No cyanosis. Patient is able to move all extremities. Strength is 5 out of 5 in the upper and lower extremities. Skin: No rashes, warm dry and intact. Neurologic: No obvious focal neurological deficits seen. Psychiatric: Alert and orient x1 with flat affect. Results & Data Results & Data ([facility]) Vital Signs (Past 12 Hours) Vital Signs Temp Pulse Resp BP Pulse Ox 08/27/22 03:50 76 12 97 08/27/22 03:40 85 16 98 08/27/22 03:30 19 88 L 08/27/22 03:20 85 15 97 08/27/22 03:10 74 14 97 08/27/22 03:00 73 12 97 08/27/22 02:50 80 13 95 08/27/22 02:47 77 12 98 08/27/22 02:47 126/55 L 08/27/22 02:40 82 12 97 08/27/22 02:30 73 11 L 97 08/27/22 02:20 69 10 L 96 08/27/22 02:10 75 13 99 08/27/22 02:00 68 7 L 96 08/27/22 01:50 72 9 L 95 08/27/22 01:47 119/52 L 08/27/22 01:47 75 9 L 97 08/27/22 01:40 69 10 L 95 08/27/22 01:30 70 9 L 97 08/27/22 01:20 69 11 L 96 08/27/22 01:10 78 9 L 96 08/27/22 01:00 74 10 L 97 08/27/22 00:50 78 23 93 08/27/22 00:40 75 10 L 96 08/27/22 03:00 36.6 C 08/27/22 00:00 77 08/27/22 00:30 72 13 98 08/27/22 00:20 80 10 L 96 08/27/22 00:10 71 7 L 97 08/27/22 00:00 69 8 L 95 08/26/22 23:50 67 7 L 97 08/26/22 23:47 67 10 L 97 08/26/22 23:47 119/54 L 08/26/22 23:40 71 11 L 97 08/26/22 23:30 70 12 97 08/26/22 23:20 73 12 97 08/26/22 23:10 75 10 L 97 08/26/22 23:00 73 16 97 08/26/22 22:50 74 10 L 95 08/26/22 22:40 71 9 L 96 08/26/22 22:30 78 12 96 08/26/22 22:20 77 9 L 96 08/26/22 22:10 79 10 L 95 08/26/22 22:00 82 12 96 08/26/22 21:50 78 12 95 08/26/22 21:47 75 10 L 95 08/26/22 21:47 111/50 L 08/26/22 21:40 75 7 L 96 08/26/22 21:30 80 10 L 98 08/26/22 21:20 82 10 L 96 08/26/22 21:10 85 11 L 96 08/26/22 21:00 86 11 L 97 08/27/22 00:00 36.6 C Coding Level of Care Code 71902 SUB INP/OBS CARE 07/15MIN Diagnoses Status post carotid surgery Z98.890
--- NOTE | 2022-08-27 09:28 | CT Scan Report ---
CT SCAN OF THE BRAIN WITHOUT IV CONTRAST CLINICAL HISTORY: Strokelike symptoms. COMPARISON STUDY: CT an MRI of the brain dated 08/16/2022. TECHNIQUE: Unenhanced axial CT scan of the brain is performed from the vertex to the skull base. A do se lowering technique was utilized adhering to the principles of ALARA. CT DOSE: 638.56 mGycm FINDINGS: Brain parenchyma: There is age-related involutional change noting minimal microangiopathic disease. T here is no hemorrhage, mass effect, or evidence of acute territorial ischemia by CT criteria. Kendrick-wh ite matter differentiation is preserved. No extra-axial fluid collection is seen. The patient's known right cerebral pontine angle mass lesion is likely unchanged. This was better assessed on prior MRIs . Ventricles, sulci, cisterns: Prominent secondary to involutional change. Intracranial vasculature: There is atherosclerotic calcification of the cavernous carotid and vertebr al arteries. Calvarium: Unremarkable. Sinuses and mastoids: The visualized paranasal sinuses are clear. The mastoid air cells are well pneu matized. Orbits: The bony orbits are grossly intact. There is a right ocular lens implant. Chronic abnormality and banding of the left globe is similar to previous. IMPRESSION: 1. There is no hemorrhage, mass effect, or evidence of acute territorial ischemia by CT criteria. The small infarct seen by MRI on 08/16/[address]. 2. 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 This was better assesse d on previous MRIs. ACT 112: Negative or not required by law. Electronically signed by: Keith Grace M.D. 08/27/2022 9:27 AM
--- NOTE | 2022-08-27 10:30 | Ultrasound Report ---
ULTRASOUND OF THE CAROTID ARTERIES CLINICAL HISTORY: Strokelike symptoms. Recent left carotid revascularization. COMPARISON STUDY: Carotid artery ultrasound dated 01/04/2015. CT angiogram of the neck dated 08/16/2022 TECHNIQUE: Portable real-time, grayscale, and color Doppler sonography of the carotid arteries is per formed. Images are reviewed in the transverse and longitudinal planes. FINDINGS: The carotid arteries are patent bilaterally and demonstrate antegrade flow. There is atherosclerotic plaque seen in the carotid bulbs bilaterally. Normal doppler arterial waveforms are seen throughout. Stents are suggested in the left common carotid and internal carotid arteries. These appear patent. Velocity measurements are listed below. Common carotid peak systolic velocity (cm/sec): RIGHT: 91 LEFT: 54 ICA proximal peak systolic velocity (cm/sec): RIGHT: 96 LEFT: 63 ICA mid peak systolic velocity (cm/sec): RIGHT: 60 LEFT: 58 ICA distal peak systolic velocity (cm/sec): RIGHT: 65 LEFT: 79 ICA/CC peak systolic ratio: RIGHT: 1.1 LEFT: 0.9 Antegrade flow was shown in the vertebral arteries. The external carotid arteries are patent. IMPRESSION: 1. Atherosclerotic plaque with no sonographic evidence of hemodynamically significant stenosis in the right or left carotid arterial system. 2. Left common carotid/internal carotid artery stents appear patent. 3 Antegrade flow is shown in the vertebral arteries. ACT 112: Negative or not required by law. Electronically signed by: Keith Grace M.D. 08/27/2022 10:28 AM
--- NOTE | 2022-08-27 12:18 | Pharmacy Report ---
Pharmacy Glycemic Short Note 2 - Date of Service August 27, 2022 - Glycemic Short BSG Results (Last 24 hours): 08/26/22 08/26/22 08/26/22 15:39 18:12 21:13 POC Glucose 157 H 185 H 184 H 08/27/22 08/27/22 07:58 11:44 POC Glucose 129 H 124 H OUTPATIENT ANTIDIABETIC REGIMEN: * Lantus 10 units BID * Regular insulin per sliding scale * A1c = 7.2% 08/17/22 ASSESSMENT: * Type 2 diabetic admitted for TCAR * Patient was initiated on SQ basal / bolus regimen last evening * Fasting BSG at goal this AM with 8 units basal on board. Will continue current basal insulin orders ("low stress" wt-based regimen) * Post-prandial BSGs controlled thus far w/ current Novolog CF and CR - no change PLAN FOR INPATIENT GLYCEMIC CONTROL: * Hold outpatient oral diabetes medications * Basal insulin * Lantus 8 units SQ BID * Bolus insulin * NovoLog per scale ACHS or Q6hrs while NPO * Goal Range: Low 110 mg/dL - High 140 mg/dL * Correction Factor: 30 mg/dL/unit * Nutritional / Prandial insulin per carb ratio of 1 unit per 10 grams CHO consumed
--- NOTE | 2022-08-27 13:12 | Surgery Progress Note ---
Date of Service August 27, 2022 Assessment & Plan (1) Status post carotid surgery: Plan: Carotid usn shows the stent to be widely patent. No layering of clot seen. (2) Acute CVA (cerebrovascular accident): Plan: Has a new onset of mild right facial droop. Her speech appears to be as it was last week when she had her stroke. No acute changes on CT scan. Will downgrade to PCU status. Start therapy. Admission and Anticipated Discharge Date Admission Date: August 26, 2022 Subjective Patient with slight slurred speech today. Similar to when she had her stroke last week. She was noted to have a right sided facial droop today. Nurses claim it started this am. She claims she can move her upper and lower extremities without problems. Physical Exam Constitutional: WD/WN, vitals as above Respiratory: normal respiratory effort; no respiratory distress Cardiovascular: Rate/Rhythm: + irregularly irregular Musculoskeletal: no cyanosis or clubbing, extremities motor strength 5/5 Skin: + incision (dry and clean) Neurologic: moves all extremities She has a right sided facial droop that appears mild. Her speech is slightly slurred as it was last week. Results & Data ([facility]) Vital Signs (Past 12 Hours) Vital Signs Temp Pulse Resp BP Pulse Ox O2 Del Method 08/27/22 08:00 Room Air 08/27/22 11:00 67 11 L 97 08/27/22 10:30 71 15 95 08/27/22 10:00 72 14 98 08/27/22 09:30 72 11 L 96 08/27/22 08:30 68 10 L 95 08/27/22 08:07 109/62 08/27/22 08:07 83 11 L 97 08/27/22 08:00 74 16 97 08/27/22 07:30 73 10 L 96 08/27/22 07:07 74 8 L 93 08/27/22 07:07 114/54 L 08/27/22 07:00 76 9 L 92 08/27/22 06:30 81 13 97 08/27/22 06:07 131/83 08/27/22 06:07 77 13 97 08/27/22 06:00 77 14 97 08/27/22 05:30 72 10 L 96 08/27/22 05:07 69 10 L 93 08/27/22 05:07 108/57 L 08/27/22 05:00 68 8 L 95 08/27/22 04:30 72 10 L 95 08/27/22 04:07 113/60 08/27/22 04:07 70 17 97 08/27/22 04:00 69 10 L 96 08/27/22 08:00 67 08/27/22 03:50 76 12 97 08/27/22 03:40 85 16 98 08/27/22 03:30 19 88 L 08/27/22 03:20 85 15 97 08/27/22 03:10 74 14 97 08/27/22 03:00 73 12 97 08/27/22 02:50 80 13 95 08/27/22 02:47 77 12 98 08/27/22 02:47 126/55 L 08/27/22 02:40 82 12 97 08/27/22 02:30 73 11 L 97 08/27/22 02:20 69 10 L 96 08/27/22 02:10 75 13 99 08/27/22 02:00 68 7 L 96 08/27/22 01:50 72 9 L 95 08/27/22 01:47 119/52 L 08/27/22 01:47 75 9 L 97 08/27/22 01:40 69 10 L 95 08/27/22 01:30 70 9 L 97 08/27/22 01:20 69 11 L 96 08/27/22 01:10 78 9 L 96 08/27/22 03:00 36.6 C
[2022-08-27] MEDS: RIVAROXABAN 20 MG TAB PO SCH (20:48)
[2022-08-27] MEDS: ASPIRIN 81 MG ECTAB PO SCH (20:49)
[2022-08-27] MEDS: LORazepam 0.5 MG TAB PO PRN (22:36)
[2022-08-28] MEDS: LACTATED RINGER'S 1,000 ML IV SCH ×2 (00:48→09:00)
[2022-08-28] MEDS: INSULIN ASPART PER UNIT CHARGE SC SCH ×4 (08:07→21:16)
[2022-08-28] MEDS: CARBIDOPA/LEVODOPA 25/100MG TAB PO SCH ×4 (08:10→21:17)
[2022-08-28] MEDS: PANTOprazole 40 MG TAB PO SCH (08:10)
[2022-08-28] MEDS: ATORVASTATIN 40 MG TAB PO SCH (08:10)
[2022-08-28] MEDS: CLOPIDOGREL BISULFATE 75 MG TAB PO SCH (08:10)
[2022-08-28] MEDS: AMANTADINE HCL 100 MG CAPSULE PO SCH ×2 (08:10→21:18)
[2022-08-28] MEDS: GABAPENTIN 300 MG CAP PO SCH ×2 (08:10→21:17)
[2022-08-28] MEDS: FLUTICASONE PROPIONATE NA SPR 16 GM BTL SCH (08:11)
[2022-08-28] MEDS: LORazepam 0.5 MG TAB PO PRN ×2 (08:21→21:16)
[2022-08-28] MEDS: oxyCODONE/ACETAMINOPHEN 5mg/325mg TAB PO PRN ×2 (08:21→22:33)
[2022-08-28] MEDS: LANTUS PER UNIT CHARGE SQ SCH (08:31)
--- NOTE | 2022-08-28 10:57 | Pharmacy Report ---
Pharmacy Glycemic Short Note 2 - Date of Service August 28, 2022 - Glycemic Short BSG Results (Last 24 hours): 08/27/22 08/27/22 08/27/22 11:44 16:33 20:35 POC Glucose 124 H 155 H 178 H 08/28/22 07:54 POC Glucose 163 H OUTPATIENT ANTIDIABETIC REGIMEN: * Lantus 10 units BID * Regular insulin per sliding scale * A1c = 7.2% 08/17/22 ASSESSMENT: 08/28/22: * Patient is s/p TCAR procedure * She received 32 units of insulin yesterday with good glycemic control (16 units Lantus + 16 units Novolog) * Fasting BSG of 163 mg/dL is elevated. Will resume home dose of Lantus. * Post prandial BSGs are acceptable. No change to Novolog parameters. Background: * Type 2 diabetic admitted for TCAR * Patient was initiated on SQ basal / bolus regimen last evening * Fasting BSG at goal this AM with 8 units basal on board. Will continue current basal insulin orders ("low stress" wt-based regimen) * Post-prandial BSGs controlled thus far w/ current Novolog CF and CR - no change PLAN FOR INPATIENT GLYCEMIC CONTROL: * Hold outpatient oral diabetes medications * Basal insulin * Lantus 10 units SQ BID * Bolus insulin * NovoLog per scale ACHS or Q6hrs while NPO * Goal Range: Low 110 mg/dL - High 140 mg/dL * Correction Factor: 30 mg/dL/unit * Nutritional / Prandial insulin per carb ratio of 1 unit per 10 grams CHO consumed
--- NOTE | 2022-08-28 11:54 | Surgery Progress Note ---
Date of Service August 28, 2022 Assessment & Plan (1) Status post carotid surgery: Plan: Doing well post tcar. (2) Acute CVA (cerebrovascular accident): Plan: Improved somewhat today. Can D[facility] Admission and Anticipated Discharge Date Admission Date: August 26, 2022 Subjective Patient still with slight slurred speech today. Similar to when she had her stroke last week. She was noted to have a right sided facial droop today. Otherwise she feels good. She claims she can move her upper and lower extremities without problems. Physical Exam Constitutional: WD/WN, vitals as above Musculoskeletal: no cyanosis or clubbing, extremities motor strength 5/5 Skin: + incision (dry and clean) Neurologic: moves all extremities Psychiatric: Orientation: alert and oriented x 3 Results & Data ([facility]) Vital Signs (Past 12 Hours) Vital Signs Temp Pulse Resp BP Pulse Ox O2 Del Method 08/28/22 11:20 36.8 C 65 18 121/70 96 Room Air 08/28/22 08:00 Room Air 08/28/22 07:18 36.8 C 77 19 148/66 H 98 Room Air 08/28/22 02:58 36.8 C 80 18 140/62 95 Room Air
[2022-08-28] MEDS ORDERED: LANTUS PER UNIT CHARGE SQ SCH (21:00)
[2022-08-28] MEDS: RIVAROXABAN 20 MG TAB PO SCH (21:17)
[2022-08-28] MEDS: ASPIRIN 81 MG ECTAB PO SCH (21:17)
[2022-08-29] MEDS: AMANTADINE HCL 100 MG CAPSULE PO SCH ×2 (08:18→20:57)
[2022-08-29] MEDS: ATORVASTATIN 40 MG TAB PO SCH (08:18)
[2022-08-29] MEDS: CLOPIDOGREL BISULFATE 75 MG TAB PO SCH (08:18)
[2022-08-29] MEDS: PANTOprazole 40 MG TAB PO SCH (08:18)
[2022-08-29] MEDS: FLUTICASONE PROPIONATE NA SPR 16 GM BTL SCH (08:19)
[2022-08-29] MEDS: CARBIDOPA/LEVODOPA 25/100MG TAB PO SCH ×4 (08:19→20:58)
[2022-08-29] MEDS: GABAPENTIN 300 MG CAP PO SCH ×2 (08:19→20:58)
[2022-08-29] MEDS: INSULIN ASPART PER UNIT CHARGE SC SCH ×4 (08:20→20:29)
[2022-08-29] MEDS: LANTUS PER UNIT CHARGE SQ SCH ×2 (08:21→20:29)
--- NOTE | 2022-08-29 08:59 | Surgery Progress Note ---
Date of Service August 29, 2022 Assessment & Plan (1) Status post carotid surgery: Plan: Doing well post tcar. (2) Acute CVA (cerebrovascular accident): Plan: Continues to improve Awaiting decision from [facility]. Admission and Anticipated Discharge Date Admission Date: August 26, 2022 Subjective Patient doing better today. Speech is improving according to her. She denies any extremity weakness Physical Exam Constitutional: WD/WN, vitals as above Musculoskeletal: Extremities: strength 5/5 throughout Skin: + incision (dry and clean, ecchymosis present) Neurologic: moves all extremities Cranial Nerves: normal facial strength (slight right facial droop but slowly improving) Psychiatric: Orientation: alert and oriented x 3 Results & Data ([facility]) Vital Signs (Past 12 Hours) Vital Signs Temp Pulse Resp BP Pulse Ox O2 Del Method 08/29/22 07:09 36.8 C 65 17 123/73 96 Room Air 08/29/22 03:20 36.8 C 75 18 119/65 96 Room Air 08/28/22 22:58 36.7 C 83 18 121/67 98 Room Air
[2022-08-29] MEDS: LORazepam 0.5 MG TAB PO PRN (18:48)
[2022-08-29] MEDS: RIVAROXABAN 20 MG TAB PO SCH (20:57)
[2022-08-29] MEDS: ASPIRIN 81 MG ECTAB PO SCH (20:57)
[2022-08-29] MEDS: oxyCODONE/ACETAMINOPHEN 5mg/325mg TAB PO PRN (21:41)
[2022-08-30] MEDS: PANTOprazole 40 MG TAB PO SCH (07:57)
[2022-08-30] MEDS: ATORVASTATIN 40 MG TAB PO SCH (07:57)
[2022-08-30] MEDS: CLOPIDOGREL BISULFATE 75 MG TAB PO SCH (07:57)
[2022-08-30] MEDS: CARBIDOPA/LEVODOPA 25/100MG TAB PO SCH ×4 (07:57→21:20)
[2022-08-30] MEDS: FLUTICASONE PROPIONATE NA SPR 16 GM BTL SCH (07:58)
[2022-08-30] MEDS: AMANTADINE HCL 100 MG CAPSULE PO SCH ×2 (07:58→21:20)
[2022-08-30] MEDS: INSULIN ASPART PER UNIT CHARGE SC SCH ×4 (07:58→21:17)
[2022-08-30] MEDS: GABAPENTIN 300 MG CAP PO SCH ×2 (07:58→21:20)
[2022-08-30] MEDS: LANTUS PER UNIT CHARGE SQ SCH ×2 (08:33→21:17)
--- NOTE | 2022-08-30 09:59 | Surgery Progress Note ---
Date of Service August 30, 2022 Assessment & Plan (1) Status post carotid surgery: Plan: Doing well post tcar. (2) Acute CVA (cerebrovascular accident): Plan: Has had marked improvement in speech and facial droop Awaiting decision from [facility]. Will transfer out of telemetry Admission and Anticipated Discharge Date Admission Date: August 26, 2022 Subjective Patient doing better today. Speech is improving according to her. Claims she is talking much better. She denies any extremity weakness Physical Exam Constitutional: WD/WN, vitals as above Respiratory: normal respiratory effort; no respiratory distress Cardiovascular: Rate/Rhythm: regular rate and regular rhythm Musculoskeletal: no cyanosis or clubbing, extremities motor strength 5/5 Extremities: strength 5/5 throughout Skin: + incision (dry and clean, ecchymosis present) Neurologic: moves all extremities Speech / Cognition: normal speech (much improved. almost baseline) Cranial Nerves: normal facial strength (much improved) Psychiatric: Orientation: alert and oriented x 3 Results & Data ([facility]) Vital Signs (Past 12 Hours) Vital Signs Temp Pulse Resp BP BP Pulse Ox O2 Del Method 08/30/22 07:07 36.5 C 74 18 125/71 96 Room Air 08/30/22 03:47 36.4 C L 74 18 123/74 96 Room Air 08/29/22 22:30 36.7 C 69 18 138/59 L 96 Room Air 08/29/22 21:00 Room Air
[2022-08-30] MEDS: oxyCODONE/ACETAMINOPHEN 5mg/325mg TAB PO PRN (21:16)
[2022-08-30] MEDS: LORazepam 0.5 MG TAB PO PRN (21:17)
[2022-08-30] MEDS: ASPIRIN 81 MG ECTAB PO SCH (21:20)
[2022-08-30] MEDS: RIVAROXABAN 20 MG TAB PO SCH (21:20)
[2022-08-31] MEDS: ATORVASTATIN 40 MG TAB PO SCH (08:51)
[2022-08-31] MEDS: AMANTADINE HCL 100 MG CAPSULE PO SCH ×2 (08:51→20:48)
[2022-08-31] MEDS: CARBIDOPA/LEVODOPA 25/100MG TAB PO SCH ×4 (08:52→20:48)
[2022-08-31] MEDS: CLOPIDOGREL BISULFATE 75 MG TAB PO SCH (08:53)
[2022-08-31] MEDS: GABAPENTIN 300 MG CAP PO SCH ×2 (08:54→20:48)
[2022-08-31] MEDS: PANTOprazole 40 MG TAB PO SCH (08:55)
[2022-08-31] MEDS: FLUTICASONE PROPIONATE NA SPR 16 GM BTL SCH (08:57)
--- NOTE | 2022-08-31 09:00 | Surgery Progress Note ---
Date of Service August 31, 2022 Assessment & Plan (1) Status post carotid surgery: Plan: Doing well post tcar. Will see in office in 2 weeks. (2) Acute CVA (cerebrovascular accident): Plan: Has had marked improvement in speech and facial droop. These are the same sx she had during her first CVA 2 weeks ago. Undergoing PT/OT. [facility]. Admission and Anticipated Discharge Date Admission Date: August 26, 2022 Subjective 77 yo f POD # 5 after L TCAR for symptomatic L ICA stenosis, seen in f/u today. She unfortunately suffered new onset R sided facial droop and speech difficulty on POD #1, however, this has been improving since. Pt denies any new complaints today. Review of Systems Review of Systems: All systems reviewed & are unremarkable except as noted in HPI & below Physical Exam Constitutional: WD/WN, vitals as above Respiratory: normal respiratory effort; no respiratory distress Cardiovascular: Rate/Rhythm: regular rate, regular rhythm and + irregularly irregular Musculoskeletal: no cyanosis or clubbing, extremities motor strength 5/5 Extremities: strength 5/5 throughout Skin: + incision (dry and clean, ecchymosis present) Neurologic: moves all extremities and awake; not confused Speech / Cognition: + abnormal speech (much improved. almost baseline) Cranial Nerves: tongue midline; + abnormal facial strength (much improved) Psychiatric: Orientation: alert and oriented x 3 Results & Data ([facility]) Vital Signs (Past 12 Hours) Vital Signs Temp Pulse Pulse Resp BP Pulse Ox O2 Del Method 08/31/22 07:42 36.5 C 70 14 118/66 98 Room Air 08/31/22 07:00 36.5 C 71 14 133/78 96 Room Air 08/30/22 22:24 36.6 C 75 16 123/71 97 Room Air
[2022-08-31] MEDS: INSULIN ASPART PER UNIT CHARGE SC SCH ×4 (09:09→20:49)
[2022-08-31] MEDS: LANTUS PER UNIT CHARGE SQ SCH (09:11)
[2022-08-31] MEDS: RIVAROXABAN 20 MG TAB PO SCH (20:48)
[2022-08-31] MEDS: ASPIRIN 81 MG ECTAB PO SCH (20:48)
[2022-08-31] MEDS: oxyCODONE/ACETAMINOPHEN 5mg/325mg TAB PO PRN (20:48)
[2022-08-31] MEDS: LORazepam 0.5 MG TAB PO PRN (20:48)
[2022-08-31] MEDS ORDERED: LANTUS PER UNIT CHARGE SQ SCH (21:00)
--- NOTE | 2022-09-01 08:54 | Surgery Progress Note ---
Date of Service September 01, 2022 Assessment & Plan (1) Status post carotid surgery: Plan: Doing well post tcar. Will see in office in 2 weeks. (2) Acute CVA (cerebrovascular accident): Plan: Has had marked improvement in speech and facial droop. These are the same sx she had during her first CVA 2 weeks ago. Undergoing PT/OT. [facility]. Admission and Anticipated Discharge Date Admission Date: August 26, 2022 Subjective 77 yo f POD # 6 after L TCAR for symptomatic L ICA stenosis, seen in f/u today. She unfortunately suffered new onset R sided facial droop and speech difficulty on POD #1, however, this has been improving since. Pt denies any new complaints today. Review of Systems Review of Systems: All systems reviewed & are unremarkable except as noted in HPI & below Physical Exam Constitutional: WD/WN, vitals as above Respiratory: normal respiratory effort; no respiratory distress Cardiovascular: Rate/Rhythm: regular rate, regular rhythm and + irregularly irregular Musculoskeletal: no cyanosis or clubbing, extremities motor strength 5/5 Extremities: strength 5/5 throughout Skin: + incision (dry and clean, ecchymosis present) Neurologic: moves all extremities and awake; not confused Speech / Cognition: + abnormal speech (much improved. almost baseline) Cranial Nerves: tongue midline; + abnormal facial strength (much improved) Psychiatric: Orientation: alert and oriented x 3 Results & Data ([facility]) Vital Signs (Past 12 Hours) Vital Signs Temp Pulse Resp BP Pulse Ox O2 Del Method 09/01/22 07:28 36.6 C 73 16 143/77 H 97 Room Air
[2022-09-01] MEDS ORDERED: LANTUS PER UNIT CHARGE SQ SCH (09:00)
[2022-09-01] MEDS: FLUTICASONE PROPIONATE NA SPR 16 GM BTL SCH (09:08)
[2022-09-01] MEDS: INSULIN ASPART PER UNIT CHARGE SC SCH ×2 (09:18→12:56)
[2022-09-01] MEDS: AMANTADINE HCL 100 MG CAPSULE PO SCH (09:31)
[2022-09-01] MEDS: CLOPIDOGREL BISULFATE 75 MG TAB PO SCH (09:31)
[2022-09-01] MEDS: CARBIDOPA/LEVODOPA 25/100MG TAB PO SCH ×2 (09:31→12:58)
[2022-09-01] MEDS: ATORVASTATIN 40 MG TAB PO SCH (09:31)
[2022-09-01] MEDS: GABAPENTIN 300 MG CAP PO SCH (09:31)
[2022-09-01] MEDS: PANTOprazole 40 MG TAB PO SCH (09:32)
--- NOTE | 2022-09-02 12:36 | Discharge Summary ---
Date of Service September 02, 2022 Admission HPI Per Admitting Provider August 17, 2022 Assessment & Plan (1) Symptomatic stenosis of left carotid artery: Pt with symptomatic L ICA stenosis of over 90%. Pt also seen by Dr Prakash today. Recommends pt consider L TCAR procedure. Pt states her son signs her forms for her. Will attempt to discuss with him by phone. Pt is agreeable to this. Patient was seen, examined, and chart reviewed. Agree with exam and treatment plan of the Vascular PA. Thank you very much for letting us participate in the care of this patient. History of Present Illness Reason for Consultation: Juan C CHAN CVA Attending Physician: Selene Bridges MD History of Present Illness 77 yo f with hx of parkinson's disease, a fib on xarelto, DMII, CHF, peripheral neuropathy, diabetic retinopathy, admitted after her family noted expressive aphasia on the phone yesterday, seen in consultation today for L ICA stenosis noted on CTA neck. Pt states no prior similar sx. States she lives alone, but does have family that checks on her frequently. She is a fair historian despite her dx of parkinson's dementia. Pt admits adrien horse cramps in bed at night. Denies LOYA, fever, chest pain, palpitations, abd pain, N/V, recent illness, rest pain, claudication, other complaints. No prior knowledge of the carotid stenosis, ore previous CVA in past. CTA neck demonstrates over 90% stenosis of L ICA. MRI brain demonstrates L hemispheric CVA. Allergies Allergy/AdvReac Type Severity Reaction Status Date / Time benztropineB Allergy Unknown PT NOT SURE Verified 08/16/22 19:20 citalopram Allergy Unknown PT NOT SURE Verified 08/16/22 19:20 doxycycline Allergy Unknown REMOTE HX, Verified 08/16/22 19:20 PT NOT SURE REACTION minocycline Allergy Unknown REMOTE HX, Verified 08/16/22 19:20 PT NOT SURE REACTION simvastatin Allergy Unknown PT NOT SURE Verified 08/16/22 19:20 sulindac Allergy Unknown PT NOT SURE Verified 08/16/22 19:20 empagliflozin AdvReac Intermediate Recurrent Verified 08/16/22 19:20 [From Jardiance] Urinary B Tract Infection Home Medications Medication Instructions Recorded Confirmed Type aspirin 81 mg tablet,delayed 81 mg PO HS 01/19/19 08/16/22 History release (Yariel Low Dose Aspirin) lorazepam 0.5 mg tablet 0.5 mg PO BID PRN Anxiety 11/08/19 08/16/22 History rivaroxaban 20 mg tablet (Xarelto) 20 mg PO QPM 11/08/19 08/16/22 History carbidopa 25 mg-levodopa 100 mg 2 tab PO QID 02/07/20 08/16/22 History tablet flash glucose sensor (FreeStyle #1 ea 09/02/20 07/21/22 History Ruben 2 Sensor kit) gabapentin 300 mg capsule 300 mg PO BID 10/15/21 08/16/22 History amantadine HCl 100 mg capsule 100 mg PO AMHS 01/13/22 08/16/22 History blood sugar diagnostic (OneTouch #10 ea 01/13/22 07/21/22 History Verio test strips) cetirizine 10 mg tablet (Zyrtec) 10 mg PO DAILY PRN Allergy Symptoms 01/13/22 08/16/22 History insulin aspart U-100 100 unit/mL See Rx Instructions .Route 06/03/22 08/16/22 Rx subcutaneous solution (Novolog .COMPLEX #0 mL U-100 Insulin aspart) Patient History Medical History(Updated 08/17/22 @ 09:43 by Gianna Diamond PA-C) Acoustic neuroma FOLLOWS DR MITCHELL - UPCOMING RADIATION TREATMENT AFTER CATARACT SURGERYAnxiety Chronic heart failure Complicated migraine "COMPLICATED MIGRAINES" - OCCUR OFTEN AND RESEMBLE SYMPTOMS OF A STROKE PER PTDiabetes INSULIN PUMPDVT prophylaxis GERD (gastroesophageal reflux disease) HXHistory of colon polyps History of high cholesterol History of TIA (transient ischemic attack) 2004 ,HX PT FOR, NO REMAINING RESIDUAL EFFECTSHypertension HX BLOOD PRESSURE MEDICINE, ONCE A FIB DX - MED WAS D/C'D - PT REPORTS BLOOD PRESSURE USUALLY RUNS LOW AROUND 106/58Mitral valve disorder DENIESObesity Parkinson disease Permanent atrial fibrillation DX 2 YR AGO, NO HX CARDIOVERSIONSymptomatic stenosis of left carotid artery Surgical History H/O breast biopsy 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History of left knee replacement S/P appendectomy HXS/P cholecystectomy HX Family History Mother Diabetes Congestive heart failure Colorectal cancer HypertensionBrother Congestive heart failure Colorectal cancerSister CancerUnknown Pancreatic cancerSon Family history of colonic polyps Social History Smoking Status: Never smoker Second Hand Exposure: No; Do You Dip or Chew Tobacco: No; Hx Alcohol Use: No Hx Substance Use: No Preferred Language: Mongolian Communication Ability: Impaired Visual Impairment: No Limitations Precision Instrument And Tool Maker Required: No Beliefs That Will Affect Care: None marital status: Unknown Current Living Situation: Family Current Living Situation Comment: condo How many Children do You have: 2 Other Information That Helps Us Care for You: No Feels Safe at Home: Yes Safety Concerns: Feels Safe At This Time Assistive Devices: Walker Review of Systems Review of Systems: All systems reviewed & are unremarkable except as noted in HPI & below Physical Exam Constitutional: WD/WN, vitals as above well developed, + thin, cooperative and comfortable; not in distress ENMT: Ears: + hearing impairment (R ear) Neck: trachea midline Respiratory: normal respiratory effort Auscultation: lungs clear to auscultation bilaterally and + diminished lung sounds Cardiovascular: Rate/Rhythm: regular rate and regular rhythm Vessels: posterior tibial pulses present (+1 LLE, nonpalpable RLE), dorsalis pedis pulses present (+1 LLE, nonpalpable RLE) and radial pulses present; + abnormal peripheral pulses Extremities: normal capillary refill; no edema Gastrointestinal (Abdomen): Inspection/Auscultation: abdomen normal to inspection and normal bowel sounds Percussion/Palpation: abdomen soft; abdomen nontender Musculoskeletal: no cyanosis or clubbing, extremities motor strength 5/5 Skin: no rashes, warm and dry Neurologic: moves all extremities and awake; no focal motor deficits (prior aphasia appears improved/resolved) and not confused Speech / Cognition: normal speech Psychiatric: A+Ox3, euthymic affect Signed By: <Electronically signed by Gianna Diamond PA-C> 08/17/22 0947 <Electronically signed by Corky Prakash MD> 08/17/22 1010 Created:08/17/22 0935 The status of this report isSigned. Draft = Not yet reviewed or approved by Medical Physician. Signed = Reviewed and approved by Medical Physician. Admission Exam Per Admitting Provider Constitutional: WD/WN, vitals as above well developed, + thin, cooperative and comfortable; not in distress ENMT: Ears: + hearing impairment (R ear) Neck: trachea midline Respiratory: normal respiratory effort Auscultation: lungs clear to auscultation bilaterally and + diminished lung sounds Cardiovascular: Rate/Rhythm: regular rate and regular rhythm Vessels: posterior tibial pulses present (+1 LLE, nonpalpable RLE), dorsalis pedis pulses present (+1 LLE, nonpalpable RLE) and radial pulses present; + abnormal claribel pheral pulses Extremities: normal capillary refill; no edema Gastrointestinal (Abdomen): Inspection/Auscultation: abdomen normal to inspection and normal bowel sounds Percussion/Palpation: abdomen soft; abdomen nontender Musculoskeletal: no cyanosis or clubbing, extremities motor strength 5/5 Skin: no rashes, warm and dry Neurologic: moves all extremities and awake; no focal motor deficits (prior aphasia appears improved/resolved) and not confused Speech / Cognition: normal speech Psychiatric: A+Ox3, euthymic affect Principal Diagnosis 1. s/p L TCAR 2. Symptomatic L ICA Stenosis 3. Acute CVA Discharge Exam Constitutional WD/WN, vitals as above Respiratory normal respiratory effort; no respiratory distress Cardiovascular Rate/Rhythm: regular rate, regular rhythm and + irregularly irregular Musculoskeletal no cyanosis or clubbing, extremities motor strength 5/5 Extremities: strength 5/5 throughout Skin + incision (dry and clean, ecchymosis present) Neurologic moves all extremities and awake; not confused Speech / Cognition: + abnormal speech (much improved. almost baseline) Cranial Nerves: tongue midline; + abnormal facial strength (much improved) Psychiatric Orientation: alert and oriented x 3 Discharge Data Allergies Allergy/AdvReac Type Severity Reaction Status Date / Time benztropine Allergy Unknown PT NOT SURE Verified 08/26/22 11:18 citalopram Allergy Unknown PT NOT SURE Verified 08/26/22 11:18 doxycycline Allergy Unknown REMOTE HX, Verified 08/26/22 11:18 PT NOT SURE REACTION minocycline Allergy Unknown REMOTE HX, Verified 08/26/22 11:18 PT NOT SURE REACTION simvastatin Allergy Unknown PT NOT SURE Verified 08/26/22 11:18 sulindac Allergy Unknown PT NOT SURE Verified 08/26/22 11:18 empagliflozin AdvReac Intermediate Recurrent Verified 08/26/22 11:18 [From Jay] Urinary Tract Infection Consultations 08/26/22 16:59 Consult Medical Technologist Microbiology Routine Procedures Performed Operation Date: 08/26/22 12:30 Actual Procedures p Left Transcarotid Artery Revascularization(Left) - Corky Prakash MD Ordered Studies 08/26/22 07:17 EV angio carotid cerv LT Routine US EV guide vascular access Routine 08/27/22 08:43 CT head/brain wo con Stat US carotid doppler BI Stat Hospital Course (1) Status post carotid surgery: Doing well post tcar. Will see in office in 2 weeks. (2) Acute CVA (cerebrovascular accident): Has had marked improvement in speech and facial droop. These are the same sx she had during her first CVA 2 weeks ago. Undergoing PT/OT. [facility]. Total Time Total Time Spent Total Time Spent (In Minutes): 0 Discharge Plan Discharge Items Patient Disposition: Transfer Inpatient Rehab Fac Reason For Visit: Left Internal Carotid Artery Stenosis Discharge Diagnosis: 1. s/p L TCAR 2. CVA Activity: Per Instructions section Weightbearing: Full weightbearing Non-emergency contact: Primary Care Provider and Surgeon Call non-emergency contact if: your pain is not controlled, your pain is concerning for you, you have a fever, your wound has increased redness and your wound has increased drainage Follow-up/Referrals: Corky Prakash MD [Physician] - (Follow up with Dr Prakash or Gianna Diamond PA-C in 2 weeks.) [facility] [Primary Care Provider] - Diet: Carb Consistent or DM2 and Heart Healthy Addtl Attending Provider Instructions: SPECIAL CARE INSTRUCTIONS: Medications: * Continue to take Aspirin, Clopidogrel, and Atorvastatin as directed. DO NOT STOP THESE MEDICATIONS WITHOUT SPEAKING TO DR PRAKASH'S OFFICE. Incision Care: * You may shower, but do not rub incision. You may let the warm soapy water run over it. Be sure to dry the incision well after bathing. * Do not shave directly over the incision until it is healed. * DO NOT IMMERSE THE INCISION IN A TUB/POOL/etc. UNTIL HEALED. Restrictions: * Do not drive for at least one week or if you are still taking any narcotic pain medication. * Do not lift anything heavier than a gallon of milk for one week after going home. Possible Complications: * Numbness - It is normal to have some numbness around the incision. Numbness can extend beyond the incision to areas of the neck, ear and face. The numbness is due to bruising of nerves during the surgery and will gradually improve over a period of months. * Hoarseness/Difficulty Speaking and Swallowing - The bruising of nerves in the neck can also cause a hoarse voice, difficulty speaking or swallowing. This may improve over time, HOWEVER, if it continues for more than a few days please contact our office ([phone]). * Excessive Swelling - There will be some swelling immediately after surgery which usually resolves within one week. If you notice that the swelling is getting worse, notify your surgeon ([phone]). * Drainage/Bleeding - If there is any drainage or bleeding, it should be a very small amount (less than a teaspoon per day). If you have excessive bleeding or drainage from the incision, call your surgeon ([phone]) right away. ACTIVATION OF EMERGENCY MEDICAL SYSTEM: Call 911, immediately, if you experience any of the following: Warning Signs and Symptoms of Stroke: * Sudden numbness or weakness of the face, arm or leg, especially on one side of the body * Sudden confusion, trouble speaking or understanding * Sudden trouble seeing in one or both eyes * Sudden trouble walking, dizziness, loss of balance or coordination * Sudden severe headache with no cause Do not delay calling 911 if you experience any warning signs or symptoms of a stroke. Delay in seeking medical attention may affect what treatments can be given to you. Risk Factors for Stroke: You can reduce your chances of stroke by working with your medical provider to adopt a healthy lifestyle. Some specific ways to lower your chance of stroke are: * If you are a smoker, now is the time to stop smoking cigarettes * If you are diabetic, improve the control of your blood sugars * Avoid excessive amounts of alcohol * Control high blood pressure * Lose weight if you are overweight * Be sure to lead an active lifestyle * Eat a healthy diet low in salt, cholesterol and fat You should know about other risk factors for stroke that you are unable to control. These include: * Age 55 years or older * Male gender * Certain racial groups: , or / * Family History of Stroke, Mini stroke or Heart Attack * Sickle Cell Disease You will be receiving a call from the Vascular Surgery Nurse after you are discharged. FOLLOW UP VISIT: It is important for you to keep your follow up appointments with your medical provider. Keep any scheduled doctor appointments. Pending Studies at Discharge: No Stand-Alone Forms: [facility] Skilled Items Patient informed of condition?: Yes DNR: No Discharge Level of Care: Acute rehab Communicable Disease: No Discharge Prognosis: Improving Lines: None Urinary Catheter: No Medications and DC Order Prescriptions: Continued (DME) FreeStyle Ruben 2 Sensor Kit See Rx Instructions .ROUTE .MEDSUPPLY Qty: 1 Rx Instructions: As directed amantadine HCl 100 mg capsule 100 mg PO AMHS (DME) OneTouch Verio test strips Strip See Rx Instructions .ROUTE .MEDSUPPLY Qty: 10 Rx Instructions: Test blood sugar once daily PRN gabapentin 300 mg capsule 300 mg PO BID Rx Instructions: 08/16/22 : CONFIRMED STRENGTH WITH SON, UNABLE TO CONFIRM DAILY DOSE AND FREQUENCY WITH SON. aspirin [Yareil Low Dose Aspirin] 81 mg tablet,delayed release (DR/EC) 81 mg PO HS lorazepam 0.5 mg tablet 0.5 mg PO BID PRN (Reason: Anxiety) Xarelto 20 mg tablet 20 mg PO QPM carbidopa-levodopa 25-100 mg tablet 2 tab PO QID Rx Instructions: 08/16/22 : CONFIRMED STRENGTH WITH SON, UNABLE TO CONFIRM DAILY DOSAGE AND FREQUENCY WITH SON. clopidogrel [Plavix] 75 mg Tablet 75 mg PO UD atorvastatin 40 mg Tablet 40 mg PO QAM sennosides [Senokot] 8.6 mg Tablet 8.6 mg PO QDL PRN (Reason: Constipation) bisacodyl 10 mg Suppository 10 mg DC DAILY PRN (Reason: Constipation) pantoprazole [Protonix] 40 mg Tablet,Delayed Release (Dr/Ec) 40 mg PO QAM Humulin R Regular U-100 Insuln 100 unit/mL Solution 1 sliding scale dose SUBCUT USEASDIRECTD Patient Comments: patient doesnt remember how many units Rx Instructions: 70 = hypoglycemia protocol 70-130=0 units 131-180=2 units 181-240=4 units 241-300=6 units 301-350=8 units 351-400=10 units great than 400=12 units Fleet Enema 19-7 gram/118 mL Enema 118 ml DC DAILY PRN (Reason: Constipation) polyethylene glycol 3350 [Miralax] 17 gram/dose Powder 17 g PO QDL PRN (Reason: Constipation) ondansetron 4 mg Tablet,Disintegrating 4 mg PO Q4H PRN (Reason: nausea or vomiting) fluticasone propionate [Flonase Allergy Relief] 50 mcg/actuation [place],Suspension 2 spray INTRANASAL QAM Rx Instructions: administer into each nostril loratadine 10 mg Tablet 10 mg PO DAILY PRN (Reason: seasonal allergies) magnesium hydroxide [Milk Of Magnesia Concentrated] 2,400 mg/10 mL Suspension 30 ml PO DAILY PRN (Reason: Constipation) insulin glargine [Lantus Solostar U-100 Insulin] 100 unit/mL (3 mL) Insulin Pen 10 unit SUBCUT BID Discharge Orders: Discharge Order (Routine); Ordered 09/01/22 Ordered By: Gianna Diamond Admission Data Admit Date/Time: 08/26/22 12:02 Attending Provider: Corky Prakash Admit Provider: Corky Prakash Primary Care Provider: [facility] Other Providers: [facility] ; Keith Daniels ; Vaughn Pike ; Se arpita Vilchis ; Jaziel Alonso ; Odilon Peng ; Elijah Morales ; Donald Finley ; Robert Riggs ; Darby Reina Other Interventions: Discharge Summary Assessment (RN) Last Done: 09/01/22 14:03
== END 2022-09-01 15:05 | DRG 34 ==
LOC: ASU 10:33 → 1E 12:02 → 2S 08-27 14:41 → 3W 08-30 12:31
PROC: EV.TCAR (2022-08-26 12:30)

== ENCOUNTER 2022-09-04 15:46 | Inpatient (IN) ==
[2022-09-04] MEDS ORDERED: OPTIRAY 320 500ml IV ONE (15:56)
--- NOTE | 2022-09-04 16:05 | Emergency Department Note ---
Impression & Plan Brain TIA, Facial droop, Acute right-sided muscle weakness ED Provider Note NAME: BASSEM VIVEROS AGE: 77 SEX: F : 1945 ARRIVES VIA: Ambulance INFORMANT: Patient ED PROVIDER(S): Renzo Garcia DO CHIEF COMPLAINT: Right-sided facial droop, right arm and leg weak HPI: Patient is a 77-year-old female who presents the ER for right-sided facial droop and right arm and leg weakness. Symptoms started around 10 AM this morning. She denies any headache or change in vision. No chest pain or shortness of breath. She did have a stroke at the end of July and had left internal carotid surgery performed. Denies any chest pain, shortness of breath, nausea, vomiting, or diarrhea. She noted no weakness in the right side but EMS noted right upper and right lower extremity weakness upon their evaluation. She did take her NOAC this morning. PAST MEDICAL HISTORY:See Below PAST SURGICAL HISTORY:See Below FAMILY HISTORY:See Below SOCIAL HISTORY:See Below HOME MEDICATIONS:See Below ALLERGIES:See Below VITALS:See Below PHYSICAL EXAMINATION: GENERAL: Sitting up in bed, alert, right-sided facial droop with slurred speech EYE EXAM: normal conjunctiva. PERRL and EOM's intact. OROPHARYNX: no exudate, no erythema, lips, buccal mucosa, and tongue normal and mucous membranes are moist NECK: supple, no nuchal rigidity, no adenopathy, non-tender LUNGS: Clear to auscultation. Normal chest wall mechanics HEART: no murmurs, S1 normal and S2 normal ABDOMEN: abdomen soft, non-tender, normo-active bowel sounds, no masses, no rebound or guarding. BACK: Back is symmetrical on inspection and there is no deformity, no midline tenderness, no CVA tenderness. SKIN: no rashes and no bruising UPPER EXTREMITIES: upper extremities are grossly normal. LOWER EXTREMITIES: No pitting edema. NEURO EXAM: Normal sensorium, right-sided facial droop with slurred speech, no weakness of arms, no weakness of legs. No drift. Finger to nose intact. Gross sensation intact. MEDICAL DECISION MAKING: Patient is a 77-year-old female who presents ER for right-sided weakness and right-sided facial droop. Received medical command. Stroke alert was called prior to arrival. IV was established blood work was obtained. External records were reviewed. Labs show mild leukopenia 4. Mild anemia 10. BMP with slightly elevated glucose at 210. LFTs was unremarkable. T. bili slightly up at 2. Troponin negative. COVID-negative. CT angios of the head and neck shows small amount of active extra from the SCM. I did discuss this with Dr. Jay and he recommends monitoring as this is likely secondary to the surgery. Chest x-ray was unremarkable. Patient's symptoms completely resolved while in the ER. Discussed with the hospitalist for further evaluation management and treatment. Symptoms started around 10 AM. Not a candidate for tPA with the recent stroke, surgery and taking a NOAC. Triage Nursing notes reviewed. Limited review of prior medical records performed Vital Signs: reviewed and remarkable for HTN Differential diagnosis: Differential Diagnosis includes but is not limited to ischemic Stroke, hemorrhagic stroke, bells palsy, mass, neoplasm, migraine headache, seizure, subarachnoid hemorrhage, TIA, and transient global amnesia. ER treatment provided: See below Diagnostics interpreted by me include EKG and cardiac monitoring as listed below: -Cardiac Monitoring: An order was placed for continuous cardiac monitoring. The monitor shows a rate of 80 with sinus rhythm. -ECG: A-fib 77 Left axis No PVCs QTc 430 -Laboratory studies:Interpreted by me as stated above in MDM and shown below. Imaging studies: Xrays: As interpreted by me: Portable AP upright 1 view chest shows no pneumonia CTs show: CT angios of the head and neck showed no acute pathology with exception of small amount of ActiV.A.C extracted from the left SCM which is likely secondary to the recent surgery. Consultation(s): Discussed with vascular Dr. Jay who recommended no need for intervention with the active accessory of the left SCM. Discussed with the hospitalist for further evaluation and management Procedures:none Critical Care: None Past Med/Surg History Medical History (Updated 09/04/22 @ 21:48 by Renzo Garcia DO) Acoustic neuroma FOLLOWS DR MITCHELL - UPCOMING RADIATION TREATMENT AFTER CATARACT SURGERY Anxiety Chronic heart failure Complicated migraine "COMPLICATED MIGRAINES" - OCCUR OFTEN AND RESEMBLE SYMPTOMS OF A STROKE PER PT Diabetes INSULIN PUMP DVT prophylaxis GERD (gastroesophageal reflux disease) HX H/O head and neck radiation History of colon polyps History of high cholesterol History of TIA (transient ischemic attack) 2004 ,HX PT FOR, NO REMAINING RESIDUAL EFFECTS Hypertension HX BLOOD PRESSURE MEDICINE, ONCE A FIB DX - MED WAS D/C'D - PT REPORTS BLOOD PRESSURE USUALLY RUNS LOW AROUND 106/58 Mitral valve disorder DENIES Obesity Parkinson disease Permanent atrial fibrillation DX 2 YR AGO, NO HX CARDIOVERSION Stroke 08/16/22 treated at [facility]. still experiencing mild slurred speech at times, using a wheelchair, unable to ambulate at this time since her stroke. able to stand and pivot with assistance. Symptomatic stenosis of left carotid artery Surgical History (Updated 08/26/22 @ 17:27 by Jaziel Alonso MD) H/O breast biopsy 10/26/17 LMA#4. 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 S/P appendectomy HX S/P cholecystectomy HX Status post carotid surgery Family History Mother Diabetes Congestive heart failure Colorectal cancer Hypertension Brother Congestive heart failure Colorectal cancer Sister Cancer Unknown Pancreatic cancer Son Family history of colonic polyps Social History Smoking Status: Never smoker Second Hand Exposure: No; Hx Alcohol Use: No Hx Substance Use: No Preferred Language: Citizen Of [place] Communication Ability: Effective Visual Impairment: No Limitations Management Expert Required: No Beliefs That Will Affect Care: Hindu marital status: Unknown Current Living Situation Comment: currently at [facility] since stroke How many Children do You have: 2 Feels Safe at Home: Yes Assistive Devices: Walker Allergies Allergies Allergy/AdvReac Type Severity Reaction Status Date / Time benztropine Allergy Unknown PT NOT SURE Verified 09/04/22 16:45 citalopram Allergy Unknown PT NOT SURE Verified 09/04/22 16:45 doxycycline Allergy Unknown REMOTE HX, Verified 09/04/22 16:45 PT NOT SURE REACTION minocycline Allergy Unknown REMOTE HX, Verified 09/04/22 16:45 PT NOT SURE REACTION simvastatin Allergy Unknown PT NOT SURE Verified 09/04/22 16:45 sulindac Allergy Unknown PT NOT SURE Verified 09/04/22 16:45 empagliflozin AdvReac Intermediate Recurrent Verified 09/04/22 16:45 [From Jardiance] Urinary Tract Infection Home Meds Home Medications Medication Instructions Recorded Confirmed aspirin 81 mg tablet,delayed 81 mg PO HS 01/19/19 09/04/22 release (Yariel Low Dose Aspirin) lorazepam 0.5 mg tablet 0.5 mg PO BID PRN Anxiety 11/08/19 09/04/22 rivaroxaban 20 mg tablet (Xarelto) 20 mg PO HS 11/08/19 09/04/22 carbidopa 25 mg-levodopa 100 mg 2 tab PO Q6H 02/07/20 09/04/22 tablet flash glucose sensor (FreeStyle #1 ea 09/02/20 07/21/22 Ruben 2 Sensor kit) gabapentin 300 mg capsule 300 mg PO BID 10/15/21 09/04/22 amantadine HCl 100 mg capsule 100 mg PO AMHS 01/13/22 09/04/22 blood sugar diagnostic (OneTouch #10 ea 01/13/22 07/21/22 Verio test strips) atorvastatin 40 mg tablet 40 mg PO QAM 08/24/22 09/04/22 bisacodyl 10 mg rectal suppository [address] DAILY PRN Constipation 08/24/22 09/04/22 clopidogrel 75 mg tablet (Plavix) 75 mg PO DAILY 08/24/22 09/04/22 fluticasone propionate 50 2 spray intranasal QAM 08/24/22 09/04/22 mcg/actuation nasal spray,suspension (Flonase Allergy Relief) insulin glargine 100 unit/mL (3 10 unit subcut BID 08/24/22 09/04/22 mL) subcutaneous pen (Lantus Solostar U-100 Insulin) insulin regular human 100 unit/mL 1 sliding scale dose subcut 08/24/22 09/04/22 injection solution (Humulin R USEASDIRECTD Regular U-100 Insulin) loratadine 10 mg tablet 10 mg PO DAILY 08/24/22 09/04/22 magnesium hydroxide 2,400 mg/10 mL 30 ml PO DAILY PRN Constipation 08/24/22 09/04/22 oral suspension (Milk Of Magnesia Concentrated) ondansetron 4 mg disintegrating 4 mg PO Q4H PRN nausea or vomiting 08/24/22 09/04/22 tablet pantoprazole 40 mg tablet,delayed 40 mg PO DAILYBB 03/06/23 03/17/23 release (Protonix) polyethylene glycol 3350 17 17 g PO QDL PRN Constipation 08/24/22 09/04/22 gram/dose oral powder (Miralax) sennosides 8.6 mg tablet (Senokot) 8.6 mg PO QDL PRN Constipation 08/24/22 09/04/22 sodium phosphates 19 gram-[address] DAILY PRN Constipation 08/24/22 09/04/22 gram/118 mL enema (Fleet Enema) acetaminophen 300 mg-codeine 30 mg 1 tab PO Q4H PRN Pain (Scale Score 09/04/22 09/04/22 tablet 4-10) acetaminophen 325 mg tablet 650 mg PO Q4H PRN Pain (Scale 09/04/22 09/04/22 (Tylenol) Score 1-3) docusate sodium 100 mg capsule 100 mg PO BID 09/04/22 09/04/22 naloxone 4 mg/actuation nasal spray 4 mg intranasal ONCE PRN Opioid 09/04/22 09/04/22 Overdose Results & Data (ED) Vital Signs Vital Signs - 24 hr 09/04/22 15:53 09/04/22 16:11 09/04/22 16:30 Temperature 36.7 C Temperature Source Oral Pulse Rate 81 Pulse Rate [Apical] 74 77 Pulse Rhythm [Apical] Respiratory Rate 18 18 18 Respiratory Effort / Characteristics Non-Labored Spontaneous Non-Labored Spontaneous Non-Labored Spontaneous Respiratory Depth Normal Normal Normal Blood Pressure 159/89 H Blood Pressure [Right Arm] 168/68 H 160/75 H Blood Pressure Mean 112 Blood Pressure Mean [Right Arm] 101 103 Blood Pressure Position Lying Pulse Oximetry 98 98 98 Oxygen Delivery Method Room Air Room Air Room Air Sepsis Recent Fever Within 48 Hours No Sepsis New/Unexplained Change in Mental Status No Sepsis Action Taken by Nursing No Action Required 09/04/22 21:01 Temperature Temperature Source Pulse Rate Pulse Rate [Apical] 79 Pulse Rhythm [Apical] Regular Respiratory Rate 20 Respiratory Effort / Characteristics Non-Labored Respiratory Depth Normal Blood Pressure Blood Pressure [Right Arm] 172/90 H Blood Pressure Mean Blood Pressure Mean [Right Arm] 117 Blood Pressure Position Pulse Oximetry 97 Oxygen Delivery Method Room Air Sepsis Recent Fever Within 48 Hours Sepsis New/Unexplained Change in Mental Status Sepsis Action Taken by Nursing Laboratory Data 09/04/22 16:03 09/04/22 16:03 Lab Results 09/04/22 09/04/22 09/04/22 Range/Units 16:03 16:03 16:03 WBC 4.13 L (4.8-10.8) K/ul RBC 3.55 L (4.20-5.40) M/uL Hgb 10.5 L (12.0-16.0) g/dl Hct 31.8 L (37.0-47.0) % MCV 89.6 (80.0-100.0) fL MCH 29.6 (25.0-34.0) pg MCHC 33.0 (32.0-36.0) g/dL RDW Std Deviation 52.3 H (36.4-46.3) fL RDW Coeff of Vicky 16.4 H (11.5-14.5) % Plt Count 190 (130-400) K/uL MPV 10.1 (9.4-12.4) fL Immature Gran % (Auto) 0.5 % Neut % (Auto) 63.7 % Lymph % (Auto) 21.8 % [place] % (Auto) 8.0 % Eos % (Auto) 5.3 % Baso % (Auto) 0.7 % Neut # (Auto) 2.63 (1.40-6.50) K/uL Lymph # (Auto) 0.90 L (1.2-3.4) K/uL [place] # (Auto) 0.33 (0.11-0.59) K/uL Eos # (Auto) 0.22 (0-0.50) K/uL Baso # (Auto) 0.03 (0-0.2) K/uL Immature Gran # (Auto) 0.02 (0.01-0.20) K/uL PT 13.6 H (9.0-12.0) Seconds INR 1.3 H (0.9-1.1) APTT 33.7 H (21.0-31.0) Seconds PTT Ratio 1.2 Sodium 135 L (136-145) mmol/L Potassium 4.2 (3.5-5.1) mmol/L Chloride 103 (98-107) mmol/L Carbon Dioxide 28 (21-32) mmol/L Anion Gap 4 (3-11) BUN 16 (6-23) mg/dl Creatinine 0.69 (0.6-1.2) mg/dl Est Cr Clr Drug Dosing 74.0 ml/min Est GFR ( Amer) 98.0 ml/min Est GFR (Non-Af Amer) 84.6 ml/min BUN/Creatinine Ratio 23.2 H (10-20) Glucose 214 H (70-99(Fasting)) mg/dl POC Glucose (70-99) mg/dl Calcium 8.8 (8.5-10.1) mg/dl Magnesium 1.9 (1.7-2.4) mg/dl Total Bilirubin 2.0 H (0.2-1.0) mg/dl AST 16 (13-39) U/L ALT < 3 L (7-52) U/L Alkaline Phosphatase 79 (34-104) U/L Troponin I High Sens 5.4 (0-14) pg/ml Total Protein 6.2 (6.0-8.3) gm/dl Albumin 3.5 (3.4-5.0) gm/dl Globulin 2.7 (2.5-4.0) gm/dl Albumin/Globulin Ratio 1.3 (0.9-2) SARS-CoV-2, RNA, NAAT (NEGATIVE) 09/04/22 09/04/22 Range/Units 18:43 19:42 WBC (4.8-10.8) K/ul RBC (4.20-5.40) M/uL Hgb (12.0-16.0) g/dl Hct (37.0-47.0) % MCV (80.0-100.0) fL MCH (25.0-34.0) pg MCHC (32.0-36.0) g/dL RDW Std Deviation (36.4-46.3) fL RDW Coeff of Vicky (11.5-14.5) % Plt Count (130-400) K/uL MPV (9.4-12.4) fL Immature Gran % (Auto) % Neut % (Auto) % Lymph % (Auto) % [place] % (Auto) % Eos % (Auto) % Baso % (Auto) % Neut # (Auto) (1.40-6.50) K/uL Lymph # (Auto) (1.2-3.4) K/uL [place] # (Auto) (0.11-0.59) K/uL Eos # (Auto) (0-0.50) K/uL Baso # (Auto) (0-0.2) K/uL Immature Gran # (Auto) (0.01-0.20) K/uL PT (9.0-12.0) Seconds INR (0.9-1.1) APTT (21.0-31.0) Seconds PTT Ratio Sodium (136-145) mmol/L Potassium (3.5-5.1) mmol/L Chloride (98-107) mmol/L Carbon Dioxide (21-32) mmol/L Anion Gap (3-11) BUN (6-23) mg/dl Creatinine (0.6-1.2) mg/dl Est Cr Clr Drug Dosing ml/min Est GFR ( Amer) ml/min Est GFR (Non-Af Amer) ml/min BUN/Creatinine Ratio (10-20) Glucose (70-99(Fasting)) mg/dl POC Glucose 159 H (70-99) mg/dl Calcium (8.5-10.1) mg/dl Magnesium (1.7-2.4) mg/dl Total Bilirubin (0.2-1.0) mg/dl AST (13-39) U/L ALT (7-52) U/L Alkaline Phosphatase (34-104) U/L Troponin I High Sens (0-14) pg/ml Total Protein (6.0-8.3) gm/dl Albumin (3.4-5.0) gm/dl Globulin (2.5-4.0) gm/dl Albumin/Globulin Ratio (0.9-2) SARS-CoV-2, RNA, NAAT NEGATIVE (NEGATIVE) Administered Medications Discontinued Medications Ioversol (Optiray 320 500ml) 114 ml IV ONCE ONE Stop: 09/04/22 15:57 Last Admin: 09/04/22 15:57 Dose: 114 ml Documented By: JOSI Lorazepam (Lorazepam 2 Mg/1 Ml Vial) 0.5 mg IV NOW STA Stop: 09/04/22 20:46 Last Admin: 09/04/22 21:13 Dose: 0.5 mg Documented By: DANNY Imaging Data Radiologist's Impression: Chest X-Ray 09/04/22 15:40 XR chest 1V portable HISTORY: neuro deficit, acute stroke suspected COMPARISON: Chest and right rib series 06/18/2022. FINDINGS: No pneumothorax. No pleural effusions. The cardiac silhouette remains enlarged. There is mild chronic interstitial thickening, unchanged. No new focal lung consolidations to suggest a pneumonia. No evidence for pulmonary edema. There are calcifications within the aortic knob. There is a left carotid stent which is partially visualized. IMPRESSION: 1. Stable cardiomegaly. Otherwise, no acute process within the chest. 2. Interval placement of a left carotid stent. ACT 112: Negative or not required by law. Electronically signed by: Cali Reilly M.D. 09/04/2022 5:[address] 09/04/22 15:[address], HEAD & NECK CTA HISTORY: neuro deficit, acute stroke suspected TECHNIQUE: Multiaxial CT images of the head were performed both before and after the intravenous administration of contrast to evaluate the major cerebral vessels. Multiaxial CT images of the neck were also performed following the intravenous administration of contrast to evaluate the major cervical vessels. Maximum intensity projection images were also obtained. A dose lowering technique was utilized adhering to the principles of ALARA. COMPARISON: Head CT 08/27/2022. Head and neck CTA 08/16/2022. FINDINGS: NONCONTRAST HEAD CT: The paranasal sinuses and mastoid air cells are clear. The calvarium and skull base are intact. Postoperative changes again noted within the left globe. There is again noted a 2.2 cm right cerebellopontine angle extra-axial mass. This favors a vestibular schwannoma. No hematoma or midline shift. Mild atrophy and microvascular ischemic changes are again noted. There is a new small hypodense focus within the left frontal lobe white matter on images 18 and 19 measuring approximately 1 cm. This may represent expected evolution of the patient's recently identified subacute/chronic left frontal lobe infarct see n on the 08/16/2022 brain MRI. Otherwise, no definite acute infarct at this time. HEAD CTA: Visualized intracranial internal carotid arteries, distal vertebral arteries, and basilar artery are widely patent. 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 The major dural venous sinuses are patent. Moderate calcified plaque within the bilateral carotid siphons. NECK CTA: The aortic arch and proximal great vessels are widely patent. There is no significant stenosis, occlusion, or dissection identified within the bilateral common carotid, right internal carotid, or vertebral arteries. Stable thyroid nodules with the largest on the right measuring 4 cm. Stable subcentimeter nodules within the lung apices measuring up to 7 mm on the right on image 30. Mild calcified plaque within the right carotid bifurcation. Interval left common/internal carotid artery stent placement which appears patent. There is mild focal narrowing of up to 30% at the takeoff of the left internal carotid artery remaining. This has significantly improved status post placement of the stent... The remaining left internal carotid artery is patent. Soft tissue edema anterior to the left common carotid artery with a small amount of soft tissue gas. This favors recent postoperative change. There is also a small intramuscular hematoma the base of the left sternocleidomastoid muscle containing a small amount of gas. Suspect a small focus of active arterial extravasation within the inferior aspect of the left sternocleidomastoid muscle best seen on image 168. The intramuscular hematoma measures approximately 2.7 cm. IMPRESSION: 1. No significant stenosis, occlusion, or aneurysm within the [place]. 2. Interval left common/internal carotid artery stent placement which appears patent. There is mild focal narrowing of up to 30% at the takeoff of the left internal carotid artery remaining. This has significantly improved status post placement of the stent.. 3. No significant stenosis, occlusion, or dissection within the right carotid or vertebral arteries. 4. No change in the 2 cm right cerebellopontine angle lesion which likely represents an acoustic neuroma. 5. There is a new small hypodense focus within the left frontal lobe white matter measuring approximately 1 cm. This may represent expected evolution of the patient's recently identified subacute/chronic left frontal lobe infarct seen on the 08/16/2022 brain MRI. Otherwise, no definite acute infarct at this time. 6. There is a small intramuscular hematoma within the base of the left sternocleidomastoid muscle which contains a small of gas and a small focus of active arterial extravasation. This may be due to the recent postoperative change. Clinical follow-up recommended to ensure stability of the suspected intramuscular hematoma and active arterial extravasation. 7. Scattered subcentimeter pulmonary nodules with the largest in the right lung measuring 7 mm. [address] follow-up recommended to ensure stability. ACT 112: Positive. There are findings on this exam that require communication between the performing entity and the patient following Patient Test Result Information Act ([place] Act 112) guidelines. Electronically signed by: Cali Reilly M.D. 09/04/2022 4:21 PM Head CTA 09/04/22 15:[address], HEAD & NECK CTA HISTORY: neuro deficit, acute stroke suspected TECHNIQUE: Multiaxial CT images of the head were performed both before and after the intravenous administration of contrast to evaluate the major cerebral vessels. Multiaxial CT images of the neck were also performed following the intravenous administration of contrast to evaluate the major cervical vessels. Maximum intensity projection images were also obtained. A dose lowering technique was utilized adhering to the principles of ALARA. COMPARISON: Head CT 08/27/2022. Head and neck CTA 08/16/2022. FINDINGS: NONCONTRAST HEAD CT: The paranasal sinuses and mastoid air cells are clear. The calvarium and skull base are intact. Postoperative changes again noted within the left globe. There is again noted a 2.2 cm right cerebellopontine angle extra-axial mass. This favors a vestibular schwannoma. No hematoma or midline shift. Mild atrophy and microvascular ischemic changes are again noted. There is a new small hypodense focus within the left frontal lobe white matter on images 18 and 19 measuring approximately 1 cm. This may represent expected evolution of the patient's recently identified subacute/chronic left frontal lobe infarct seen on the 08/16/2022 brain MRI. Otherwise, no definite acute infarct at this time. HEAD CTA: Visualized intracranial internal carotid arteries, distal vertebral arteries, and basilar artery are widely patent. 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 The major dural venous sinuses are patent. Moderate calcified plaque within the bilateral carotid siphons. NECK CTA: The aortic arch and proximal great vessels are widely patent. There is no significant stenosis, occlusion, or dissection identified within the bilateral common carotid, right internal carotid, or vertebral arteries. Stable thyroid nodules with the largest on the right measuring 4 cm. Stable subcentimeter nodules within the lung apices measuring up to 7 mm on the right on image 30. Mild calcified plaque within the right carotid bifurcation. Interval left common/internal carotid artery stent placement which appears patent. There is mild focal narrowing of up to 30% at the takeoff of the left internal carotid artery remaining. This has significantly improved status post placement of the stent... The remaining left internal carotid artery is patent. Soft tissue edema anterior to the left common carotid artery with a small amount of soft tissue gas. This favors recent postoperative change. There is also a small intramuscular hematoma the base of the left sternocleidomastoid muscle containing a small amount of gas. Suspect a small focus of active arterial extravasation within the inferior aspect of the left sternocleidomastoid muscle best seen on image 168. The intramuscular hematoma measures approximately 2.7 cm. IMPRESSION: 1. No significant stenosis, occlusion, or aneurysm within the [place]. 2. Interval left common/internal carotid artery stent placement which appears patent. There is mild focal narrowing of up to 30% at the takeoff of the left internal carotid artery remaining. This has significantly improved status post placement of the stent.. 3. No significant stenosis, occlusion, or dissection within the right carotid or vertebral arteries. 4. No change in the 2 cm right cerebellopontine angle lesion which likely represents an acoustic neuroma. 5. There is a new small hypodense focus within the left frontal lobe white matter measuring approximately 1 cm. This may represent expected evolution of the patient's recently identified subacute/chronic left frontal lobe infarct seen on the 08/16/2022 brain MRI. Otherwise, no definite acute infarct at this t barry. 6. There is a small intramuscular hematoma within the base of the left sternocleidomastoid muscle which contains a small of gas and a small focus of active arterial extravasation. This may be due to the recent postoperative change. Clinical follow-up recommended to ensure stability of the suspected intramuscular hematoma and active arterial extravasation. 7. Scattered subcentimeter pulmonary nodules with the largest in the right lung measuring 7 mm. [address] follow-up recommended to ensure stability. ACT 112: Positive. There are findings on this exam that require communication between the performing entity and the patient following Patient Test Result [place] Act [place] Act 112) guidelines. Electronically signed by: Cali Reilly M.D. 09/04/2022 4:21 PM Neck CTA 09/04/22 15:[address], HEAD & NECK CTA HISTORY: neuro deficit, acute stroke suspected TECHNIQUE: Multiaxial CT images of the head were performed both before and after the intravenous administration of contrast to evaluate the major cerebral vess els. Multiaxial CT images of the neck were also performed following the intravenous administration of contrast to evaluate the major cervical vessels. Maximum intensity projection images were also obtained. A dose lowering technique was utilized adhering to the principles of ALARA. COMPARISON: Head CT 08/27/2022. Head and neck CTA 08/16/2022. FINDINGS: NONCONTRAST HEAD CT: The paranasal sinuses and mastoid air cells are clear. The calvarium and skull base are intact. Postoperative changes again noted within the left globe. There is again noted a 2.2 cm right cerebellopontine angle extra-axial mass. This favors a vestibular schwannoma. No hematoma or midline shift. Mild atrophy and microvascular ischemic changes are again noted. There is a new small hypodense focus within the left frontal lobe white matter on images 18 and 19 measuring approximately 1 cm. This may represent expected evolution of the patient's recently identified subacute/chronic left frontal lobe infarct seen on the 08/16/2022 brain MRI. Otherwise, no definite acute infarct at this time. HEAD CTA: Visualized intracranial internal carotid arteries, distal vertebral arteries, and basilar artery are widely patent. 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 The major dural venous sinuses are patent. Moderate calcified plaque within the bilateral carotid siphons. NECK CTA: The aortic arch and proximal great vessels are widely patent. There is no significant stenosis, occlusion, or dissection identified within the bilateral common carotid, right internal carotid, or vertebral arteries. Stable thyroid nodules with the largest on the right measuring 4 cm. Stable subcentimeter nodules within the lung apices measuring up to 7 mm on the right on image 30. Mild calcified plaque within the right carotid bifurcation. Interval left common/internal carotid artery stent placement which appears patent. There is mild focal narrowing of up to 30% at the takeoff of the left internal carotid artery remaining. This has significantly improved status post placement of the stent... The remaining left internal carotid artery is patent. Soft tissue edema anterior to the left common carotid artery with a small amount of soft tissue gas. This favors recent postoperative change. There is also a small intramuscular hematoma the base of the left sternocleidomastoid muscle containing a small amount of gas. Suspect a small focus of active arterial extravasation within the inferior aspect of the left sternocleidomastoid muscle best seen on image 168. The intramuscular hematoma measures approximately 2.7 cm. IMPRESSION: 1. No significant stenosis, occlusion, or aneurysm within the [place]. 2. Interval left common/internal carotid artery stent placement which appears p atent. There is mild focal narrowing of up to 30% at the takeoff of the left internal carotid artery remaining. This has significantly improved status post placement of the stent.. 3. No significant stenosis, occlusion, or dissection within the right carotid or vertebral arteries. 4. No change in the 2 cm right cerebellopontine angle lesion which likely represents an acoustic neuroma. 5. There is a new small hypodense focus within the left frontal lobe white m atter measuring approximately 1 cm. This may represent expected evolution of the patient's recently identified subacute/chronic left frontal lobe infarct seen on the 08/16/2022 brain MRI. Otherwise, no definite acute infarct at this time. 6. There is a small intramuscular hematoma within the base of the left sternocleidomastoid muscle which contains a small of gas and a small focus of a ctive arterial extravasation. This may be due to the recent postoperative change. Clinical follow-up recommended to ensure stability of the suspected intramuscular hematoma and active arterial extravasation. 7. Scattered subcentimeter pulmonary nodules with the largest in the right lung measuring 7 mm. [address] follow-up recommended to ensure stability. ACT 112: Positive. There are findings on this exam that require communication between the performing entity and the patient following Patient Test Result Information Act ([place] Act 112) guidelines. Electronically signed by: Cali Reilly M.D. 09/04/2022 4:21 PM Discharge Plan Visit Data Chief Complaint: Stroke Alert ED Provider: Renzo Garcia Discharge Problem: Brain TIA, Facial droop, Acute right-sided muscle weakness Discharge Instructions Interventions: ED Discharge Assessment Last Done: 09/04/22 21:44 Forms Stand Alone Forms: [facility] Prescriptions Prescriptions: No Action (DME) FreeStyle Ruben 2 Sensor Kit See Rx Instructions .ROUTE .MEDSUPPLY Qty: 1 Rx Instructions: As directed amantadine HCl 100 mg capsule 100 mg PO [facility] (DME) OneTouch Verio test strips Strip See Rx Instructions .ROUTE .MEDSUPPLY Qty: 10 Rx Instructions: Test blood sugar once daily PRN gabapentin 300 mg capsule 300 mg PO BID aspirin [Yariel Low Dose Aspirin] 81 mg tablet,delayed release (DR/EC) 81 mg PO HS lorazepam 0.5 mg tablet 0.5 mg PO BID PRN (Reason: Anxiety) Xarelto 20 mg tablet 20 mg PO HS carbidopa-levodopa 25-100 mg tablet 2 tab PO Q6H clopidogrel [Plavix] 75 mg Tablet 75 mg PO DAILY atorvastatin 40 mg Tablet 40 mg PO QAM sennosides [Senokot] 8.6 mg Tablet 8.6 mg PO QDL PRN (Reason: Constipation) bisacodyl 10 mg Suppository [address] DAILY PRN (Reason: Constipation) pantoprazole [Protonix] 40 mg Tablet,Delayed Release (Dr/Ec) 40 mg PO DAILYBB Humulin R Regular U-100 Insuln 100 unit/mL Solution 1 sliding scale dose SUBCUT USEASDIRECTD Patient Comments: patient doesnt remember how many units Rx Instructions: 70 = hypoglycemia protocol 70-130=0 units 131-180=2 units 181-240=4 units 241-300=6 units 301-350=8 units 351-400=10 units great than 400=12 units Fleet Enema 19-7 gram/118 mL Enema [address] DAILY PRN (Reason: Constipation) polyethylene glycol 3350 [Miralax] 17 gram/dose Powder 17 g PO QDL PRN (Reason: Constipation) ondansetron 4 mg Tablet,Disintegrating 4 mg PO Q4H PRN (Reason: nausea or vomiting) fluticasone propionate [Flonase Allergy Relief] 50 mcg/actuation [place] 2 spray INTRANASAL QAM Rx Instructions: administer into each nostril loratadine 10 mg Tablet 10 mg PO DAILY magnesium hydroxide [Milk Of Magnesia Concentrated] 2,400 mg/10 mL Suspension 30 ml PO DAILY PRN (Reason: Constipation) insulin glargine [Lantus Solostar U-100 Insulin] 100 unit/mL (3 mL) Insulin Pen 10 unit SUBCUT BID acetaminophen [Tylenol] 325 mg Tablet 650 mg PO Q4H PRN (Reason: Pain (Scale Score 1-3)) acetaminophen-codeine 300-30 mg tablet 1 tab PO Q4H PRN (Reason: Pain (Scale Score 4-10)) docusate sodium 100 mg Capsule 100 mg PO BID naloxone 4 mg/actuation [place],Non-Aerosol 4 mg INTRANASAL ONCE PRN (Reason: Opioid Overdose) Referrals Referrals: [facility] [Primary Care Provider] -
--- NOTE | 2022-09-04 16:22 | CT Scan Report ---
NONCONTRAST HEAD CT, HEAD & NECK CTA HISTORY: neuro deficit, acute stroke suspected TECHNIQUE: Multiaxial CT images of the head were performed both before and after the intravenous admi nistration of contrast to evaluate the major cerebral vessels. Multiaxial CT images of the neck were also performed following the intravenous administration of contrast to evaluate the major cervical ve ssels. Maximum intensity projection images were also obtained. A dose lowering technique was utilized adhering to the principles of ALARA. COMPARISON: Head CT 08/27/2022. Head and neck CTA 08/16/2022. FINDINGS: NONCONTRAST HEAD CT: The paranasal sinuses and mastoid air cells are clear. The calvarium and skull b ase are intact. Postoperative changes again noted within the left globe. There is again noted a 2.2 c m right cerebellopontine angle extra-axial mass. This favors a vestibular schwannoma. No hematoma or midline shift. Mild atrophy and microvascular ischemic changes are again noted. There is a new small hypodense focus within the left frontal lobe white matter on images 18 and 19 measuring approximately 1 cm. This may represent expected evolution of the patient's recently identified subacute/chronic le ft frontal lobe infarct seen on the 08/16/2022 brain MRI. Otherwise, no definite acute infarct at this time. HEAD CTA: Visualized intracranial internal carotid arteries, distal vertebral arteries, and basilar a rtery are widely patent. 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 The major dural venous sinuses are patent. Moderate calcified plaque with in the bilateral carotid siphons. NECK CTA: The aortic arch and proximal great vessels are widely patent. There is no significant sten osis, occlusion, or dissection identified within the bilateral common carotid, right internal carotid , or vertebral arteries. Stable thyroid nodules with the largest on the right measuring 4 cm. Stable subcentimeter nodules within the lung apices measuring up to 7 mm on the right on image 30. Mild calc ified plaque within the right carotid bifurcation. Interval left common/internal carotid artery stent placement which appears patent. There is mild focal narrowing of up to 30% at the takeoff of the lef t internal carotid artery remaining. This has significantly improved status post placement of the sandy nt... The remaining left internal carotid artery is patent. Soft tissue edema anterior to the left co mmon carotid artery with a small amount of soft tissue gas. This favors recent postoperative change. There is also a small intramuscular hematoma the base of the left sternocleidomastoid muscle containi ng a small amount of gas. Suspect a small focus of active arterial extravasation within the inferior aspect of the left sternocleidomastoid muscle best seen on image 168. The intramuscular hematoma zuleika ures approximately 2.7 cm. IMPRESSION: 1. No significant stenosis, occlusion, or aneurysm within the [place]. 2. Interval left common/internal carotid artery stent placement which appears patent. There is mild f ocal narrowing of up to 30% at the takeoff of the left internal carotid artery remaining. This has si gnificantly improved status post placement of the stent.. 3. No significant stenosis, occlusion, or dissection within the right carotid or vertebral arteries. 4. No change in the 2 cm right cerebellopontine angle lesion which likely represents an acoustic neur vidya. 5. There is a new small hypodense focus within the left frontal lobe white matter measuring approxima tely 1 cm. This may represent expected evolution of the patient's recently identified subacute/chroni c left frontal lobe infarct seen on the 08/16/2022 brain MRI. Otherwise, no definite acute infarct at this time. 6. There is a small intramuscular hematoma within the base of the left sternocleidomastoid muscle whi ch contains a small of gas and a small focus of active arterial extravasation. This may be due to the recent postoperative change. Clinical follow-up recommended to ensure stability of the suspected int ramuscular hematoma and active arterial extravasation. 7. Scattered subcentimeter pulmonary nodules with the largest in the right lung measuring 7 mm[address] follow-up recommended to ensure stability. ACT 112: Positive. There are findings on this exam that require communication between the performing entity and the patient following Patient Test Result Information Act ([place] Act 112) guidelines. Electronically signed by: Cali Reilly M.D. 09/04/2022 4:21 PM
[2022-09-04 16:24] LABS: Basophils # (auto) 0.03 K/uL (0-0.2); Basophils % (auto) 0.7 %; Eosinophils # (auto) 0.22 K/uL (0-0.50); Eosinophils % (auto) 5.3 %; Hematocrit (blood only) 31.8 % (37.0-47.0); Hemoglobin 10.5 g/dl (12.0-16.0); Immature Granulocytes # (auto) 0.02 K/uL (0.01-0.20); Immature Granulocytes % (auto) 0.5 %; Lymphocytes % (auto) 21.8 %; Mean Corpuscular Hemoglobin 29.6 pg (25.0-34.0); Mean Corpuscular Volume 89.6 fL (80.0-100.0); Mean Platelet Volume 10.1 fL (9.4-12.4); Monocytes # (auto) 0.33 K/uL (0.11-0.59); Neutrophils # (auto) 2.63 K/uL (1.40-6.50); Neutrophils % (auto) 63.7 %; Platelet Count 190 K/uL (130-400); RDW Coefficient of Variation 16.4 % (11.5-14.5); RDW Standard Deviation 52.3 fL (36.4-46.3); Red Blood Count 3.55 M/uL (4.20-5.40); White Blood Count 4.13 K/ul (4.8-10.8)
[2022-09-04 16:41] LABS: Anion Gap 4 (3-11); BUN Creatinine Ratio 23.2 (10-20); Blood Urea Nitrogen 16 mg/dl (6-23); Calcium 8.8 mg/dl (8.5-10.1); Carbon Dioxide 28 mmol/L (21-32); Chloride 103 mmol/L (98-107); Est GFR (Non-African American) 84.6 ml/min; Glucose 214 mg/dl (70-99(Fasting)); Potassium 4.2 mmol/L (3.5-5.1); Sodium 135 mmol/L (136-145)
[2022-09-04 16:48] LABS: Troponin I High Sensitivity 5.4 pg/ml (0-14)
[2022-09-04 16:50] LABS: Alanine Aminotransferase < 3 U/L (7-52); Albumin Globulin Ratio 1.3 (0.9-2); Albumin Level 3.5 gm/dl (3.4-5.0); Alkaline Phosphatase 79 U/L (34-104); Aspartate Aminotransferase 16 U/L (13-39); Globulin 2.7 gm/dl (2.5-4.0); Magnesium 1.9 mg/dl (1.7-2.4); Total Protein 6.2 gm/dl (6.0-8.3)
--- NOTE | 2022-09-04 17:04 | XRay Report ---
XR chest 1V portable HISTORY: neuro deficit, acute stroke suspected COMPARISON: Chest and right rib series 06/18/2022. FINDINGS: No pneumothorax. No pleural effusions. The cardiac silhouette remains enlarged. There is mi ld chronic interstitial thickening, unchanged. No new focal lung consolidations to suggest a pneumoni a. No evidence for pulmonary edema. There are calcifications within the aortic knob. There is a left carotid stent which is partially visualized. IMPRESSION: 1. Stable cardiomegaly. Otherwise, no acute process within the chest. 2. Interval placement of a left carotid stent. ACT 112: Negative or not required by law. Electronically signed by: Cali Reilly M.D. 09/04/2022 5:03 PM
[2022-09-04 17:05] LABS: INR 1.3 (0.9-1.1); Partial Thromboplastin Ratio 1.2; Partial Thromboplastin Time 33.7 Seconds (21.0-31.0); Prothrombin Time 13.6 Seconds (9.0-12.0)
--- NOTE | 2022-09-04 18:23 | History & Physical Report ---
Date of Service September 04, 2022 Assessment & Plan (1) Stroke-like symptoms: Plan: - Full admit to PCU/Tele - Symptoms could be d/t evolvement of prior stroke vs. post operative carotid artery surgery - No need for repeat echo, last done on 08/16 showing normal LV systolic function, no wma, mild concentric LVH, EF of 60-65%, mild MR. - Neuro checks q2 - Dysphagia screening to be performed by RN, if passes, can have carb consistent diet - If patient fails screening, please notify provider - MRI brain w/o contrast ordered for tomorrow AM, will need sedation prior, will leave at rounding provider's discretion on drug choice/dose/route - Continue ASA, Plavix, Atorvastatin, and Xarelto - PT/OT eval - Case management consult to assist in dc planning back to rehab (2) Status post carotid surgery: Plan: - s/p TCAR by Dr. Jay, POD#9 - New complication noted on CTA neck of hematoma in SCM with active arterial extravasation - Will need monitored - would consider repeat imaging to ensure stability - Certainly if any evidence of worsening, would consult Dr. Jay - Continue ASA and Plavix per Dr. Jay (3) Diabetes type 2, uncontrolled: Plan: - Continue Lantus 10u BID - Usually has an insulin pump but does not have this with her - Will utilize Novolog AC and HS with a CF of 40 and CR 13 - Accuchecks AC and HS - Carb consistent diet (4) Parkinsons disease: Plan: - Resume Amantadine and Sinemet - PT/OT (5) Hypertension: Plan: - Mildly hypertensive, not presently on any medications - Son is unaware of medical history and can provide limited information - Given her presenting with stroke-like sx will allow for some permissive HTN but in light of hematoma in L SCM, would not allow for excessive HTN - Will continue to monitor and treat accordingly Plan CBC and CMP reviewed. DVT ppx covered with resumption of Xarelto. AM labs ordered. Above plan of care has been discussed with Dr. Guido who will also see and evaluate this patient. Further orders will be implemented as warranted. History of Present Illness Chief Complaint: stroke symptoms Primary Care Provider: [facility] Dena Ramirez is a 77 yo F with a pmhx of Parkinson's disease, T2DM with diabetic retinopathy, HTN, paroxysmal afib on Xarelto who was recently hospitalized 08/16 through 08/20 due to expressive aphasia found to be secondary to an ischemic infarct within the left cerebral hemisphere and a 90% stenosis of the L ICA. Patient was discharged to acute rehab and was brought back to the hospital on 08/26 for planned left transcarotid artery revascularization. Following the procedure, she had a new onset of mild right facial droop but otherwise remained stable without any immediate complications following the procedure. She was doing well until this morning around 10am when she began experiencing lip tingling, worsening speech, and headache. Patient mentioned that she had some tingling in her feet and arms. Documentation that came with her from [facility] indicated a R arm drift as well. Her work up in the ER included a CT and CTA head as well as neck which demonstrated an area of hypodense focus in the left frontal lobe that could represent evolution of patient's recently identified subacute/chronic L frontal lobe infarct seen on 08/16 MRI. Otherwise no acute infarct seen. In addition, small intramuscular hematoma within the base of the left SCM which contains a small focus of gas and small focus of active arterial extravasation which may be due to psotoperative change. This was discussed directly with Dr. Jay who felt that this was all postoperative and did not require any intervention at this time. Patient was mildly hypertensive in the ED with a BP of 160/75 but currently is on no BP meds. She did not receive any medications in the emergency room this evening. Her symptoms have all primarily resolved except the R facial droop, of which has been present since her carotid artery surgery. She has been referred to hospitalist service for admission d/t stroke-like symptoms. Allergies Allergy/AdvReac Type Severity Reaction Status Date / Time benztropine Allergy Unknown PT NOT SURE Verified 09/04/22 16:45 citalopram Allergy Unknown PT NOT SURE Verified 09/04/22 16:45 doxycycline Allergy Unknown REMOTE HX, Verified 09/04/22 16:45 PT NOT SURE REACTION minocycline Allergy Unknown REMOTE HX, Verified 09/04/22 16:45 PT NOT SURE REACTION simvastatin Allergy Unknown PT NOT SURE Verified 09/04/22 16:45 sulindac Allergy Unknown PT NOT SURE Verified 09/04/22 16:45 empagliflozin AdvReac Intermediate Recurrent Verified 09/04/22 16:45 [From Jardiance] Urinary Tract Infection Home Medications Medication Instructions Recorded Confirmed Type aspirin 81 mg tablet,delayed 81 mg PO HS 01/19/19 09/04/22 History release (Yariel Low Dose Aspirin) lorazepam 0.5 mg tablet 0.5 mg PO BID PRN Anxiety 11/08/19 09/04/22 History rivaroxaban 20 mg tablet (Xarelto) 20 mg PO HS 11/08/19 09/04/22 History carbidopa 25 mg-levodopa 100 mg 2 tab PO Q6H 02/07/20 09/04/22 History tablet flash glucose sensor (FreeStyle #1 ea 09/02/20 07/21/22 History Ruben 2 Sensor kit) gabapentin 300 mg capsule 300 mg PO BID 10/15/21 09/04/22 History amantadine HCl 100 mg capsule 100 mg PO AMHS 01/13/22 09/04/22 History blood sugar diagnostic (OneTouch #10 ea 01/13/22 07/21/22 History Verio test strips) atorvastatin 40 mg tablet 40 mg PO QAM 08/24/22 09/04/22 History bisacodyl 10 mg rectal suppository 10 mg [place] DAILY PRN Constipation 08/24/22 09/04/22 History clopidogrel 75 mg tablet (Plavix) 75 mg PO DAILY 08/24/22 09/04/22 History fluticasone propionate 50 2 spray intranasal QAM 08/24/22 09/04/22 History mcg/actuation nasal spray,suspension (Flonase Allergy Relief) insulin glargine 100 unit/mL (3 10 unit subcut BID 08/24/22 09/04/22 History mL) subcutaneous pen (Lantus Solostar U-100 Insulin) insulin regular human 100 unit/mL 1 sliding scale dose subcut 08/24/22 09/04/22 History injection solution (Humulin R USEASDIRECTD Regular U-100 Insulin) loratadine 10 mg tablet 10 mg PO DAILY 08/24/22 09/04/22 History magnesium hydroxide 2,400 mg/10 mL 30 ml PO DAILY PRN Constipation 08/24/22 09/04/22 History oral suspension (Milk Of Magnesia Concentrated) ondansetron 4 mg disintegrating 4 mg PO Q4H PRN nausea or vomiting 08/24/22 09/04/22 History tablet pantoprazole 40 mg tablet,delayed 40 mg PO DAILYBB 08/24/22 09/04/22 History release (Protonix) polyethylene glycol 3350 17 17 g PO QDL PRN Constipation 08/24/22 09/04/22 History gram/dose oral powder (Miralax) sennosides 8.6 mg tablet (Senokot) 8.6 mg PO QDL PRN Constipation 08/24/22 09/04/22 History sodium phosphates 19 gram-7 118 ml [place] DAILY PRN Constipation 08/24/22 09/04/22 History gram/118 mL enema (Fleet Enema) acetaminophen 300 mg-codeine 30 mg 1 tab PO Q4H PRN Pain (Scale Score 09/04/22 09/04/22 History tablet 4-10) acetaminophen 325 mg tablet 650 mg PO Q4H PRN Pain (Scale 09/04/22 09/04/22 History (Tylenol) Score 1-3) docusate sodium 100 mg capsule 100 mg PO BID 09/04/22 09/04/22 History naloxone 4 mg/actuation nasal spray 4 mg intranasal ONCE PRN Opioid 09/04/22 09/04/22 History Overdose Past Med/Surg History Medical History (Updated 09/05/22 @ 00:08 by Haylie Kolb) Acoustic neuroma FOLLOWS DR MITCHELL - UPCOMING RADIATION TREATMENT AFTER CATARACT SURGERY Anxiety Chronic heart failure Complicated migraine "COMPLICATED MIGRAINES" - OCCUR OFTEN AND RESEMBLE SYMPTOMS OF A STROKE PER PT Diabetes INSULIN PUMP DVT prophylaxis GERD (gastroesophageal reflux disease) HX H/O head and neck radiation History of colon polyps History of high cholesterol History of TIA (transient ischemic attack) 2004 ,HX PT FOR, NO REMAINING RESIDUAL EFFECTS Hypertension HX BLOOD PRESSURE MEDICINE, ONCE A FIB DX - MED WAS D/C'D - PT REPORTS BLOOD PRESSURE USUALLY RUNS LOW AROUND 106/58 Mitral valve disorder DENIES Obesity Parkinson disease Permanent atrial fibrillation DX 2 YR AGO, NO HX CARDIOVERSION Stroke 08/16/[address] [facility]. still experiencing mild slurred speech at times, using a wheelchair, unable to ambulate at this time since her stroke. able to stand and pivot with assistance. Symptomatic stenosis of left carotid artery Surgical History (Updated 08/26/22 @ 17:27 by Jaziel Alonso MD) H/O breast biopsy 10/26/17 LMA#4. 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 S/P appendectomy HX S/P cholecystectomy HX Status post carotid surgery Family History Mother Diabetes Congestive heart failure Colorectal cancer Hypertension Brother Congestive heart failure Colorectal cancer Sister Cancer Unknown Pancreatic cancer Son Family history of colonic polyps Social History Smoking Status: Never smoker Second Hand Exposure: No; Hx Alcohol Use: No Hx Substance Use: No Preferred Language: Djiboutian Communication Ability: Effective Visual Impairment: No Limitations Polisher Hand Required: No Beliefs That Will Affect Care: None marital status: Unknown Current Living Situation: Personal Care Facility Current Living Situation Comment: from [facility] How many Children do You have: 2 Other Information That Helps Us Care for You: No Feels Safe at Home: Yes Safety Concerns: Feels Safe At This Time Assistive Devices: Glasses, Walker and Wheelchair Physical Exam Physical Exam: GENERAL: 77 yo Well-developed, well-nourished elderly WF. NAD. LUNGS: Clear to auscultation bilaterally. No W/R/R. CARDIOVASCULAR: Irregular rhythm with CVR. No M/G/R. No JVD. EXTREMITIES: No edema. Non-tender. Peripheral pulses +2/4. NEUROLOGIC: A&O x3. R sided facial droop noted otherwise CN II-XII grossly i ntact. Results & Data Results & Data Vital Signs (Past 12 Hours) Vital Signs Temp Pulse Pulse Resp BP BP Pulse Ox 09/04/22 16:30 77 18 160/75 H 98 09/04/22 16:11 74 18 168/68 H 98 09/04/22 15:53 36.7 C 81 18 159/89 H 98 O2 Del Method 09/04/22 16:30 Room Air 09/04/22 16:11 Room Air 09/04/22 15:53 Room Air Laboratory Results 09/04/22 16:03 09/04/22 16:03 Diagnostic Findings Chest X-Ray 09/04/22 15:40 XR chest 1V portable HISTORY: neuro deficit, acute stroke suspected COMPARISON: Chest and right rib series 06/18/2022. FINDINGS: No pneumothorax. No pleural effusions. The cardiac silhouette remains enlarged. There is mild chronic interstitial thickening, unchanged. No new focal lung consolidations to suggest a pneumonia. No evidence for pulmonary edema. There are calcifications within the aortic knob. There is a left carotid stent which is partially visualized. IMPRESSION: 1. Stable cardiomegaly. Otherwise, no acute process within the chest. 2. Interval placement of a left carotid stent. ACT 112: Negative or not required by law. Electronically signed by: Cali Reilly M.D. 09/04/2022 5:[address] 09/04/22 15:[address], HEAD & NECK CTA HISTORY: neuro deficit, acute stroke suspected TECHNIQUE: Multiaxial CT images of the head were performed both before and after the intravenous administration of contrast to evaluate the major cerebral vessels. Multiaxial CT images of the neck were also performed following the intravenous administration of contrast to evaluate the major cervical vessels. Maximum intensity projection images were also obtained. A dose lowering technique was utilized adhering to the principles of ALARA. COMPARISON: Head CT 08/27/2022. Head and neck CTA 08/16/2022. FINDINGS: NONCONTRAST HEAD CT: The paranasal sinuses and mastoid air cells are clear. The calvarium and skull base are intact. Postoperative changes again noted within the left globe. There is again noted a 2.2 cm right cerebellopontine angle ex tra-axial mass. This favors a vestibular schwannoma. No hematoma or midline shift. Mild atrophy and microvascular ischemic changes are again noted. There is a new small hypodense focus within the left frontal lobe white matter on images 18 and 19 measuring approximately 1 cm. This may represent expected evolution of the patient's recently identified subacute/chronic left frontal lobe infarct seen on the 08/16/2022 brain MRI. Otherwise, no definite acute infarct at this time. HEAD CTA: Visualized intracranial internal carotid arteries, distal vertebral arteries, and basilar artery are widely patent. There is no significant stenosis, occlusion, or aneurysm seen within the bilateral ACAs, MCAs, or clinical haematologist. The major dural venous sinuses are patent. Moderate calcified plaque within the bilateral carotid siphons. NECK CTA: The aortic arch and proximal great vessels are widely patent. There is no significant stenosis, occlusion, or dissection identified within the bilateral common carotid, right internal carotid, or vertebral arteries. Stable thyroid nodules with the largest on the right measuring 4 cm. Stable subcentimeter nodules within the lung apices measuring up to 7 mm on the right on image 30. Mild calcified plaque within the right carotid bifurcation. Interval left common/internal carotid artery stent placement which appears patent. There is mild focal narrowing of up to 30% at the takeoff of the left internal carotid artery remaining. This has significantly improved status post placement of the stent... The remaining left internal carotid artery is patent. Soft tissue edema anterior to the left common carotid artery with a small amount of soft tissue gas. This favors recent postoperative change. There is also a small intramuscular hematoma the base of the left sternocleidomastoid muscle containing a small amount of gas. Suspect a small focus of active arterial ex travasation within the inferior aspect of the left sternocleidomastoid muscle best seen on image 168. The intramuscular hematoma measures approximately 2.7 cm. IMPRESSION: 1. No significant stenosis, occlusion, or aneurysm within the [place]. 2. Interval left common/internal carotid artery stent placement which appears patent. There is mild focal narrowing of up to 30% at the takeoff of the left internal carotid artery remaining. This has significantly improved status post placement of the stent.. 3. No significant stenosis, occlusion, or dissection within the right carotid or vertebral arteries. 4. No change in the 2 cm right cerebellopontine angle lesion which likely represents an acoustic neuroma. 5. There is a new small hypodense focus within the left frontal lobe white m atter measuring approximately 1 cm. This may represent expected evolution of the patient's recently identified subacute/chronic left frontal lobe infarct seen on the 08/16/2022 brain MRI. Otherwise, no definite acute infarct at this time. 6. There is a small intramuscular hematoma within the base of the left sternocleidomastoid muscle which contains a small of gas and a small focus of active arterial extravasation. This may be due to the recent postoperative change. Clinical follow-up recommended to ensure stability of the suspected intramuscular hematoma and active arterial extravasation. 7. Scattered subcentimeter pulmonary nodules with the largest in the right lung measuring 7 mm. [address] follow-up recommended to ensure stability. ACT 112: Positive. There are findings on this exam that require communication between the performing entity and the patient following Patient Test Result Information Act ([place] Act 112) guidelines. Electronically signed by: Cali Reilly M.D. 09/04/2022 4:21 PM Head CTA 09/04/22 15:[address], HEAD & NECK CTA HISTORY: neuro deficit, acute stroke suspected TECHNIQUE: Multiaxial CT images of the head were performed both before and after the intravenous administration of contrast to evaluate the major cerebral vessels. Multiaxial CT images of the neck were also performed following the intravenous administration of contrast to evaluate the major cervical vessels. Maximum intensity projection images were also obtained. A dose lowering technique was utilized adhering to the principles of ALARA. COMPARISON: Head CT 08/27/2022. Head and neck CTA 08/16/2022. FINDINGS: NONCONTRAST HEAD CT: The paranasal sinuses and mastoid air cells are clear. The calvarium and skull base are intact. Postoperative changes again noted within the left globe. There is again noted a 2.2 cm right cerebellopontine angle extra-axial mass. This favors a vestibular schwannoma. No hematoma or midline shift. Mild atrophy and microvascular ischemic changes are again noted. There is a new small hypodense focus within the left frontal lobe white matter on images 18 and 19 measuring approximately 1 cm. This may represent expected evolution of the patient's recently identified subacute/chronic left frontal lobe infarct seen on the 08/16/2022 brain MRI. Otherwise, no definite acute infarct at this t barry. HEAD CTA: Visualized intracranial internal carotid arteries, distal vertebral arteries, and basilar artery are widely patent. There is no significant stenosis, occlusion, or aneurysm seen within the bilateral ACAs, MCAs, or clinical haematologist. The major dural venous sinuses are patent. Moderate calcified plaque within the bilateral carotid siphons. NECK CTA: The aortic arch and proximal great vessels are widely patent. There is no significant stenosis, occlusion, or dissection identified within the bilateral common carotid, right internal carotid, or vertebral arteries. Stable thyroid nodules with the largest on the right measuring 4 cm. Stable subcentimeter nodules within the lung apices measuring up to 7 mm on the right on image 30. Mild calcified plaque within the right carotid bifurcation. Interval left common/internal carotid artery stent placement which appears patent. There is mild focal narrowing of up to 30% at the takeoff of the left internal carotid artery remaining. This has significantly improved status post placement of the stent... The remaining left internal carotid artery is patent. Soft tissue edema anterior to the left common carotid artery with a small amount of soft tissue gas. This favors recent postoperative change. There is also a small intramuscular hematoma the base of the left sternocleidomastoid muscle containing a small amount of gas. Suspect a small focus of active arterial extravasation within the inferior aspect of the left sternocleidomastoid muscle best seen on image 168. The intramuscular hematoma measures approximately 2.7 cm. IMPRESSION: 1. No significant stenosis, occlusion, or aneurysm within the [place]. 2. Interval left common/internal carotid artery stent placement which appears patent. There is mild focal narrowing of up to 30% at the takeoff of the left internal carotid artery remaining. This has significantly improved status post placement of the stent.. 3. No significant stenosis, occlusion, or dissection within the right carotid or vertebral arteries. 4. No change in the 2 cm right cerebellopontine angle lesion which likely represents an acoustic neuroma. 5. There is a new small hypodense focus within the left frontal lobe white matter measuring approximately 1 cm. This may represent expected evolution of the patient's recently identified subacute/chronic left frontal lobe infarct seen on the 08/16/2022 brain MRI. Otherwise, no definite acute infarct at this time. 6. There is a small intramuscular hematoma within the base of the left sternocleidomastoid muscle which contains a small of gas and a small focus of active arterial extravasation. This may be due to the recent postoperative change. Clinical follow-up recommended to ensure stability of the suspected intramuscular hematoma and active arterial extravasation. 7. Scattered subcentimeter pulmonary nodules with the largest in the right lung measuring 7 mm. [address] follow-up recommended to ensure stability. ACT 112: Positive. There are findings on this exam that require communication between the performing entity and the patient following Patient Test Result Information Act ([place] Act 112) guidelines. Electronically signed by: Cali Reilly M.D. 09/04/2022 4:21 PM Neck CTA 09/04/22 15:[address], HEAD & NECK CTA HISTORY: neuro deficit, acute stroke suspected TECHNIQUE: Multiaxial CT images of the head were performed both before and after the intravenous administration of contrast to evaluate the major cerebral vessels. Multiaxial CT images of the neck were also performed following the intravenous administration of contrast to evaluate the major cervical vessels. Maximum intensity projection images were also obtained. A dose lowering technique was utilized adhering to the principles of ALARA. COMPARISON: Head CT 08/27/2022. Head and neck CTA 08/16/2022. FINDINGS: NONCONTRAST HEAD CT: The paranasal sinuses and mastoid air cells are clear. The calvarium and skull base are intact. Postoperative changes again noted within the left globe. There is again noted a 2.2 cm right cerebellopontine angle extra-axial mass. This favors a vestibular schwannoma. No hematoma or midline shift. Mild atrophy and microvascular ischemic changes are again noted. There is a new small hypodense focus within the left frontal lobe white matter on images 18 and 19 measuring approximately 1 cm. This may represent expected evolution of the patient's recently identified subacute/chronic left frontal lobe infarct seen on the 08/16/2022 brain MRI. Otherwise, no definite acute infarct at this time. HEAD CTA: Visualized intracranial internal carotid arteries, distal vertebral arteries, and basilar artery are widely patent. There is no significant stenosis, occlusion, or aneurysm seen within the bilateral ACAs, MCAs, or clinical haematologist. The major dural venous sinuses are patent. Moderate calcified plaque within the bilateral carotid siphons. NECK CTA: The aortic arch and proximal great vessels are widely patent. There is no significant stenosis, occlusion, or dissection identified within the bilateral common carotid, right internal carotid, or vertebral arteries. Stable thyroid nodules with the largest on the right measuring 4 cm. Stable subcentimeter nodules within the lung apices measuring up to 7 mm on the right on image 30. Mild calcified plaque within the right carotid bifurcation. Interval left common/internal carotid artery stent placement which appears patent. There is mild focal narrowing of up to 30% at the takeoff of the left internal carotid artery remaining. This has significantly improved status post placement of the stent... The remaining left internal carotid artery is patent. Soft tissue edema anterior to the left common carotid artery with a small amount of soft tissue gas. This favors recent postoperative change. There is also a sm all intramuscular hematoma the base of the left sternocleidomastoid muscle containing a small amount of gas. Suspect a small focus of active arterial extravasation within the inferior aspect of the left sternocleidomastoid muscle best seen on image 168. The intramuscular hematoma measures approximately 2.7 cm. IMPRESSION: 1. No significant stenosis, occlusion, or aneurysm within the [place] of [place]. 2. Interval left common/internal carotid artery stent placement which appears patent. There is mild focal narrowing of up to 30% at the takeoff of the left internal carotid artery remaining. This has significantly improved status post placement of the stent.. 3. No significant stenosis, occlusion, or dissection within the right carotid or vertebral arteries. 4. No change in the 2 cm right cerebellopontine angle lesion which likely represents an acoustic neuroma. 5. There is a new small hypodense focus within the left frontal lobe white matter measuring approximately 1 cm. This may represent expected evolution of the patient's recently identified subacute/chronic left frontal lobe infarct seen on the 08/16/2022 brain MRI. Otherwise, no definite acute infarct at this time. 6. There is a small intramuscular hematoma within the base of the left sternocleidomastoid muscle which contains a small of gas and a small focus of active arterial extravasation. This may be due to the recent postoperative change. Clinical follow-up recommended to ensure stability of the suspected intramuscular hematoma and active arterial extravasation. 7. Scattered subcentimeter pulmonary nodules with the largest in the right lung measuring 7 mm[address] follow-up recommended to ensure stability. ACT 112: Positive. There are findings on this exam that require communication between the performing entity and the patient following Patient Test Result Information Act ([place] Act 112) guidelines. Electronically signed by: Cali Reilly M.D. 09/04/2022 4:21 PM ECG Additional Comments: EKG - afib, rate 70s Supervising Physician Co-Signing Physician Notes Patient seen and examined, chart reviewed, case discussed with Lainey Cheema and I agree with the assessment and plan as above except as otherwise noted Labs and images reviewed 77-year-old female with a history of DM, hypertension, paroxysmal A-fib on Xarelto, and Parkinson's with recent hospitalization for CVA with no 90% stenosis of left ICA who underwent left transcarotid artery revascularization and now presents with right facial droop. CT with a small focus of gas and hematoma at the left SCM favoring postoperative change. Given CT findings and postprocedure potential ischemic event Dr. Jay was contacted. Suspect that changes observed on CT were all postoperative, did not recommend any intervention at this time for these finding specifically. At bedside patient does have right-sided facial asymmetry most notable in the lip on smile, otherwise strength is intact without focal deficits and no numbness/tingling. Speech is fluent. She is pending MRI and stroke evaluation completion. Continue Parkinson's medications, continue DAPT. EKG is consistent with A-fib on admission, continue rivaroxaban. Agree with assessment and plan above. PG Care Time/CCT Total # of Minutes Spent Total Time Spent with Patient: Total time spent is greater than 50% in coordination of care (as documented) at patient's floor/unit and/or counseling patient: Coding Level of Care Code 10393 INT INP/OBS CARE 3/75MIN Diagnoses Stroke-like symptoms R29.90 Status post carotid surgery Z98.890 Diabetes type 2, uncontrolled E11.65 Parkinsons disease G20 Hypertension I10
[2022-09-04] MEDS ORDERED: LORazepam 2 MG/1 ML VIAL IV STA (20:45)
[2022-09-04] MEDS ORDERED: POLYETHYLENE (MIRALAX) 17 GM PACK PO PRN (22:09)
[2022-09-04] MEDS ORDERED: CARBOHYDRATES FOR HYPOGLYCEMIA PO PRN (22:09)
[2022-09-04] MEDS ORDERED: LANTUS PER UNIT CHARGE SQ SCH (22:09)
[2022-09-04] MEDS ORDERED: MAGNESIUM HYDROXIDE SUSP 30 ML UDC PO PRN (22:09)
[2022-09-04] MEDS ORDERED: GLUCOSE 40% GEL 15 GM TUBE PO PRN (22:09)
[2022-09-04] MEDS ORDERED: ONDANSETRON 4 MG OD TAB PO PRN (22:09)
[2022-09-04] MEDS ORDERED: GLUCAGON FOR INJ 1 MG VIAL SQ PRN (22:09)
[2022-09-04] MEDS ORDERED: DEXTROSE 50% 50 ML SYRINGE IV PRN (22:09)
[2022-09-04] MEDS ORDERED: GLUCOSE 10 TAB/TUBE PO PRN (22:09)
[2022-09-04] MEDS ORDERED: bisacodyL 10 MG SUPP PR PRN (22:09)
[2022-09-04] MEDS: GABAPENTIN 300 MG CAP PO SCH (23:31)
[2022-09-04] MEDS: ASPIRIN 81 MG ECTAB PO SCH (23:31)
[2022-09-04] MEDS: AMANTADINE HCL 100 MG CAPSULE PO SCH (23:31)
[2022-09-04] MEDS: RIVAROXABAN 20 MG TAB PO SCH (23:31)
[2022-09-04] MEDS: DOCUSATE SODIUM 100 MG CAP PO SCH (23:31)
[2022-09-05] MEDS: INSULIN ASPART PER UNIT CHARGE SC SCH ×5 (00:54→21:15)
[2022-09-05] MEDS: CARBIDOPA/LEVODOPA 25/100MG TAB PO SCH ×5 (00:55→23:01)
[2022-09-05] MEDS: LANTUS PER UNIT CHARGE SQ SCH ×3 (01:26→21:16)
[2022-09-05] MEDS: PANTOprazole 40 MG TAB PO SCH (06:00)
[2022-09-05 07:33] LABS: Basophils # (auto) 0.03 K/uL (0-0.2); Basophils % (auto) 0.7 %; Eosinophils # (auto) 0.28 K/uL (0-0.50); Eosinophils % (auto) 6.8 %; Hematocrit (blood only) 31.4 % (37.0-47.0); Hemoglobin 10.6 g/dl (12.0-16.0); Immature Granulocytes # (auto) 0.02 K/uL (0.01-0.20); Immature Granulocytes % (auto) 0.5 %; Lymphocytes # (auto) 0.93 K/uL (1.2-3.4); Lymphocytes % (auto) 22.7 %; Mean Corpuscular Hgb Conc 33.8 g/dL (32.0-36.0); Mean Platelet Volume 10.1 fL (9.4-12.4); Monocytes # (auto) 0.32 K/uL (0.11-0.59); Monocytes % (auto) 7.8 %; Neutrophils # (auto) 2.52 K/uL (1.40-6.50); Neutrophils % (auto) 61.5 %; Platelet Count 209 K/uL (130-400); RDW Coefficient of Variation 16.1 % (11.5-14.5); RDW Standard Deviation 51.2 fL (36.4-46.3); Red Blood Count 3.53 M/uL (4.20-5.40)
--- NOTE | 2022-09-05 07:37 | Electrocardiogram Report ---
Test Reason : Blood Pressure : / mmHG Vent. Rate : 077 BPM Atrial Rate : 049 BPM P-R Int : 000 ms QRS Dur : 086 ms QT Int : 380 ms P-R-T Axes : 000 -42 049 degrees QTc Int : 430 ms Poor data quality, interpretation may be adversely affected Atrial fibrillation Left axis deviation Poor R wave progression, consider anterior NM vs. lead placement vs. LVH Low voltage QRS Abnormal ECG When compared with ECG of 16-AUG-2022 16:30, No significant change was found Confirmed by Tarun Briones ([id number]) on 09/05/2022 7:36:31 AM Referred By: REFERRED SELF Confirmed By:Nicho Briones
--- NOTE | 2022-09-05 07:46 | Magnetic Resonance Report ---
MRI OF THE BRAIN WITHOUT CONTRAST CLINICAL HISTORY: stroke symptoms, worsening right facial droop COMPARISON STUDY: MRI of the brain August 16, [address] and CTA of the head September 04, 2022. TECHNIQUE: Utilizing a 1.5 Rosemarie magnet and dedicated coil, multiplanar, multiecho imaging of the bra in was performed without IV contrast. FINDINGS: There is a 1.2 cm focus of restricted diffusion within the left frontal lobe on axial image 17 of 24. This is hypointense on the ADC map. This is located within the left centrum semiovale. The re is no mass effect. There is no hemorrhage. Ventricular system is unremarkable. Basal cisterns are patent. Flow-voids for the major intracranial vessels are present. A 2.2 cm right cerebellopontine an gle mass is again noted. This is similar to previous MRI. There are no additional intracranial masses . There has been expected evolution of the previously described left frontal lobe infarct shown on MR I August 16, 2022. Calvarial signal is within normal limits. IMPRESSION: 1. 1.2 cm acute infarct within the left centrum semiovale. No mass effect. No hemorrhage. This findin g will be called/faxed to ordering provider at time of dictation. 2. No change in a right cerebellopontine angle mass suggestive of a vestibular schwannoma. ACT 112: Negative or not required by law. Electronically signed by: Subhash Pearl M.D. 09/05/2022 7:44 AM
[2022-09-05 08:07] LABS: Albumin Globulin Ratio 1.5 (0.9-2); Albumin Level 3.5 gm/dl (3.4-5.0); BUN Creatinine Ratio 18.3 (10-20); Bilirubin,Total 1.8 mg/dl (0.2-1.0); Calcium 8.6 mg/dl (8.5-10.1); Creatinine Clr Calc Pharmacy 83.4 ml/min; Est GFR (African American) 102.6 ml/min; Est GFR (Non-African American) 88.5 ml/min; Globulin 2.4 gm/dl (2.5-4.0); Potassium 3.7 mmol/L (3.5-5.1); Total Protein 5.9 gm/dl (6.0-8.3)
[2022-09-05] MEDS: LORATADINE 10 MG TAB PO SCH (09:56)
[2022-09-05] MEDS: DOCUSATE SODIUM 100 MG CAP PO SCH ×2 (09:57→19:54)
[2022-09-05] MEDS: AMANTADINE HCL 100 MG CAPSULE PO SCH ×2 (09:57→19:54)
[2022-09-05] MEDS: ATORVASTATIN 40 MG TAB PO SCH (09:57)
[2022-09-05] MEDS: GABAPENTIN 300 MG CAP PO SCH ×2 (09:57→19:54)
[2022-09-05] MEDS: CLOPIDOGREL BISULFATE 75 MG TAB PO SCH (09:57)
[2022-09-05] MEDS ORDERED: Nursing to Pharmacy Communication SCH (10:30)
--- NOTE | 2022-09-05 11:42 | Neurology Consultation ---
Date of Consultation September 05, 2022 Assessment & Plan (1) Stroke (cerebrum): (2) Status post carotid surgery: (3) A-fib: (4) Parkinson disease: Plan 77-year-old female who was admitted to the [facility] 3 weeks ago for aphasia related to an acute left hemispheric stroke in the context of a 90% stenosis of the proximal left internal carotid artery for which she subsequently underwent left transcarotid artery revascularization surgery with Dr. Jay on August 26, 2022. She was sent back to the [facility], from rehab, for further assessment of an acute right hemiparesis and was found to have another small ischemic stroke, slightly different location, but within the left centrum semiovale. She does have a notable right lower facial droop and subtle right hemiparesis at this time. Her previous aphasia seems to be improved. There is no evidence of restenosis of the left common/internal carotid artery stent that was recently placed. It is difficult to say whether or not her recent stroke is a late complication of her recent carotid surgical procedure or possibly related to her other stroke risk factors such as atrial fibrillation for which she is on Xarelto, diabetes mellitus, hypertension, or hyperlipidemia. I agree with current management, patient should continue with daily low-dose aspirin, clopidogrel, atorvastatin, and Xarelto. Current blood pressure appropriate. Allow for permissive hypertension, systolic blood pressure 140 to 160 mmHg acutely. No need to adjust patient's Parkinson disease medication regimen, continue with Sinemet and amantadine at the current dosages. Agree with PT/OT, dysphagia screening, may need some speech therapy. Patient may follow-up with the local [facility] neurology group. History of Present Illness Reason for Consultation: new stroke Requesting Physician: Selene Bridges MD Attending Physician: Selene Bridges MD History of Present Illness The patient is a 77-year-old female whom I had seen during an admission to the [facility] about 3 weeks ago for an acute ischemic infarct within the left cerebral hemisphere in the context of a 90% stenosis of the proximal left internal carotid artery. She had presented with expressive aphasia without hemiparesis at that time. History also notable for Parkinson's disease for which she has been following with a local [facility] neurology group, and also a stable right vestibular schwannoma. History also notable for atrial fibrillation for which she has been on Xarelto. She was also on daily low-dose aspirin at the time of her last admission. She underwent left transcarotid artery revascularization surgery with Dr. Jay on August 26, 2022 to address the left internal carotid artery stenosis. She was discharged to rehab from [facility] on September 02, 2022. The patient was sent back to the emergency department, from rehab, for evaluation and management of right facial droop and weakness of the right arm and leg, noted at around 10 AM yesterday morning. She was noted to have right facial droop during her initial assessment, but did not have gross weakness of the arms or legs at that time. She was not a candidate for thrombolytic therapy given her recent surgery, stroke, and taking Xarelto. A CT angiogram of the head and neck completed yesterday revealed interval placement of a left internal carotid artery stent which appeared patent. There is evidence of an evolving infarct within the left frontal lobe. A follow-up brain MRI revealed a 1.2 cm acute infarct within the left centrum semiovale that is new compared with her previous acute infarct identified on previous brain MRI done August 16, 2022. I did independently review these images. This morning, the patient continues to exhibit right lower facial weakness. She also has subtle loss of facility of the right hand. Her speech is nondysarthric and not aphasic. She does have a left upper extremity resting tremor related to her Parkinson's disease. She does not have other specific complaints, see examination below for further details. Allergies Allergy/AdvReac Type Severity Reaction Status Date / Time benztropine Allergy Unknown PT NOT SURE Verified 09/04/22 16:45 citalopram Allergy Unknown PT NOT SURE Verified 09/04/22 16:45 doxycycline Allergy Unknown REMOTE HX, Verified 09/04/22 16:45 PT NOT SURE REACTION minocycline Allergy Unknown REMOTE HX, Verified 09/04/22 16:45 PT NOT SURE REACTION simvastatin Allergy Unknown PT NOT SURE Verified 09/04/22 16:45 sulindac Allergy Unknown PT NOT SURE Verified 09/04/22 16:45 empagliflozin AdvReac Intermediate Recurrent Verified 09/04/22 16:45 [From Jardiance] Urinary Tract Infection Home Medications Medication Instructions Recorded Confirmed Type aspirin 81 mg tablet,delayed 81 mg PO HS 01/19/19 09/04/22 History release (Yariel Low Dose Aspirin) lorazepam 0.5 mg tablet 0.5 mg PO BID PRN Anxiety 11/08/19 09/04/22 History rivaroxaban 20 mg tablet (Xarelto) 20 mg PO HS 11/08/19 09/04/22 History carbidopa 25 mg-levodopa 100 mg 2 tab PO Q6H 02/07/20 09/04/22 History tablet flash glucose sensor (FreeStyle #1 ea 09/02/20 07/21/22 History Ruben 2 Sensor kit) gabapentin 300 mg capsule 300 mg PO BID 10/15/21 09/04/22 History amantadine HCl 100 mg capsule 100 mg PO AMHS 01/13/22 09/04/22 History blood sugar diagnostic (OneTouch #10 ea 01/13/22 07/21/22 History Verio test strips) atorvastatin 40 mg tablet 40 mg PO QAM 08/24/22 09/04/22 History bisacodyl 10 mg rectal suppository 10 mg [place] DAILY PRN Constipation 08/24/22 09/04/22 History clopidogrel 75 mg tablet (Plavix) 75 mg PO DAILY 08/24/22 09/04/22 History fluticasone propionate 50 2 spray intranasal QAM 08/24/22 09/04/22 History mcg/actuation nasal spray,suspension (Flonase Allergy Relief) insulin glargine 100 unit/mL (3 10 unit subcut BID 08/24/22 09/04/22 History mL) subcutaneous pen (Lantus Solostar U-100 Insulin) insulin regular human 100 unit/mL 1 sliding scale dose subcut 08/24/22 09/04/22 History injection solution (Humulin R USEASDIRECTD Regular U-100 Insulin) loratadine 10 mg tablet 10 mg PO DAILY 08/24/22 09/04/22 History magnesium hydroxide 2,400 mg/10 mL 30 ml PO DAILY PRN Constipation 08/24/22 09/04/22 History oral suspension (Milk Of Magnesia Concentrated) ondansetron 4 mg disintegrating 4 mg PO Q4H PRN nausea or vomiting 08/24/22 09/04/22 History tablet pantoprazole 40 mg tablet,delayed 40 mg PO DAILYBB 08/24/22 09/04/22 History release (Protonix) polyethylene glycol 3350 17 17 g PO QDL PRN Constipation 08/24/22 09/04/22 History gram/dose oral powder (Miralax) sennosides 8.6 mg tablet (Senokot) 8.6 mg PO QDL PRN Constipation 08/24/22 09/04/22 History sodium phosphates 19 gram-7 118 ml [place] DAILY PRN Constipation 08/24/22 09/04/22 History gram/118 mL enema (Fleet Enema) acetaminophen 300 mg-codeine 30 mg 1 tab PO Q4H PRN Pain (Scale Score 09/04/22 09/04/22 History tablet 4-10) acetaminophen 325 mg tablet 650 mg PO Q4H PRN Pain (Scale 09/04/22 09/04/22 History (Tylenol) Score 1-3) docusate sodium 100 mg capsule 100 mg PO BID 09/04/22 09/04/22 History naloxone 4 mg/actuation nasal spray 4 mg intranasal ONCE PRN Opioid 09/04/22 09/04/22 History Overdose Patient History Medical History Acoustic neuroma FOLLOWS DR MITCHELL - UPCOMING RADIATION TREATMENT AFTER CATARACT SURGERY Anxiety Chronic heart failure Complicated migraine "COMPLICATED MIGRAINES" - OCCUR OFTEN AND RESEMBLE SYMPTOMS OF A STROKE PER PT Diabetes INSULIN PUMP DVT prophylaxis GERD (gastroesophageal reflux disease) HX H/O head and neck radiation History of colon polyps History of high cholesterol History of TIA (transient ischemic attack) 2004 ,HX PT FOR, NO REMAINING RESIDUAL EFFECTS Hypertension HX BLOOD PRESSURE MEDICINE, ONCE A FIB DX - MED WAS D/C'D - PT REPORTS BLOOD PRESSURE USUALLY RUNS LOW AROUND 106/58 Mitral valve disorder DENIES Obesity Parkinson disease Permanent atrial fibrillation DX 2 YR AGO, NO HX CARDIOVERSION Stroke 08/16/[address] [facility]. still experiencing mild slurred speech at times, using a wheelchair, unable to ambulate at this time since her stroke. able to stand and pivot with assistance. Symptomatic stenosis of left carotid artery Surgical History H/O breast biopsy 10/26/17 LMA#4. 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 S/P appendectomy HX S/P cholecystectomy HX Status post carotid surgery Family History Mother Diabetes Congestive heart failure Colorectal cancer Hypertension Brother Congestive heart failure Colorectal cancer Sister Cancer Unknown Pancreatic cancer Son Family history of colonic polyps Social History Smoking Status: Never smoker Second Hand Exposure: No; Hx Alcohol Use: No Hx Substance Use: No Preferred Language: Gabonese Communication Ability: Effective Visual Impairment: No Limitations Weight Count Operator Required: No Beliefs That Will Affect Care: None marital status: Unknown Current Living Situation: Personal Care Facility Current Living Situation Comment: from [facility] How many Children do You have: 2 Other Information That Helps Us Care for You: No Feels Safe at Home: Yes Safety Concerns: Feels Safe At This Time Assistive Devices: Glasses, Walker and Wheelchair Review of Systems Constitutional: no fever and no chills Eyes: no blind spots and no diplopia Ear, Nose, Mouth, Throat: no hearing loss Respiratory: no cough and no dyspnea Cardiovascular: no chest pain and no palpitations Gastrointestinal: no nausea and no vomiting Genitourinary: no urinary urgency Musculoskeletal: + neck pain; no myalgia Integumentary: + wounds (Surgical wound noted to the left side of the neck with associated ecchymosis, tracking to the right side of the neck); no rash and no lesions Neurologic: as per Subjective / HPI Psychiatric: no depression and no anxiety Hematologic / Lymphatic: + easy bruising; no easy bleeding Exam (Neuro) Constitutional: well developed and + frail appearing Eyes: normal visual godoy by confrontation, PERRL and EOM intact bilaterally Cardiovascular: Vessels: no carotid bruit Neurologic: Oriented to:: Person, Place and Time Memory: Short Term Intact and Remote Intact Attention: Span Intact and Concentration Intact Speech Fluency: negative Dysarthria or Dysfluency Fund of Knowledge: Current Events, Past History and Vocabulary Cranial Nerves: Normal II, III, IV, , V, VIII, IX, X, XI and XII; Abnorm VII (Right lower facial droop noted) Motor Strength: Hemiparesis (very mild) Laterality: Right; negative Normal Lower Extremities or Normal Upper Extremities Rigidity: Rigidity Laterality: Left Muscle Bulk/Involuntary Movements: Pill Rolling Tremor Laterality: Left Coordination: Finger-Nose Abnormal and Heel-Ellington Abnormal Deep Tendon Reflexes: Rt Triceps: 1+, Lt Triceps: 1+, Rt Biceps: 2+, Lt Biceps: 1+, Rt Brachioradialis: 1+, Lt Brachioradialis: 1+, Rt Patellar: 2+, Lt Patellar: 1+, Rt Ankle: 1+ and Lt Ankle: 1+ Special Tests: negative Babinski Present Details: Gait cannot be safely tested Results & Data Vital Signs (Past 12 Hours) Vital Signs Temp Pulse Pulse Resp BP Pulse Ox O2 Del Method 09/05/22 07:00 65 09/05/22 08:29 36.5 C 70 16 151/77 H 96 Room Air 09/05/22 04:01 36.5 C 82 18 123/68 97 Room Air 09/05/22 02:56 84 Laboratory Results WBC 4.10, hemoglobin 10.6, hematocrit 31.4, platelet count 209, sodium 142, potassium 3.7, BUN 11, creatinine 0.60, glucose 90, calcium 8.6, AST 19, ALT 11 A lipid panel from August 17, 2022 was again reviewed. Triglycerides 108, cholesterol 134, LDL 63, VLDL 22, HDL 49. Diagnostic Findings CT angiography of the head and neck and brain MRI are as described in the history of present illness, I independently reviewed these images. Electrocardiogram revealed atrial fibrillation, 77 bpm. An echocardiogram completed August 17, 2022 revealed normal left ventricular systolic function, no regional wall motion abnormalities, mild concentric LVH, ejection fraction 60 to 65%, left atrium mildly dilated, no ASD. Coding Level of Care Code 55263 INT INP/OBS CARE MIN Diagnoses Stroke (cerebrum) I63.9 Status post carotid surgery Z98.890 A-fib I48.91 Parkinson disease G20
--- NOTE | 2022-09-05 13:17 | Hospitalist Progress Note ---
Date of Service September 05, 2022 Assessment & Plan (1) Stroke-like symptoms: Plan: This is a 77-year-old female who was discharged from the hospital to rehab about 2 weeks ago. During the last admission, she was found to acute left hemispheric stroke most likely secondary to a 90% stenosis of the proximal left internal carotid artery for which she subsequently underwent TCAR. She presented from rehab with complaints of acute right hemiparesis and facial droop -She was found to have a new stroke in the left centrum semiovale on MRI brain. -She is currently on ASA, Plavix, Atorvastatin, and Xarelto, which neurology considers adequate -Will maintain permissive HTN - PT/OT eval - Plan is back to rehab (2) Status post carotid surgery: Plan: - s/p TCAR by Dr. Jay, POD#9 - New complication noted on CTA neck of hematoma in SCM with active arterial extravasation - Will need monitored - would consider repeat imaging to ensure stability - Certainly if any evidence of worsening, would consult Dr. Jay - Continue ASA and Plavix per Dr. Jay (3) Diabetes type 2, uncontrolled: Plan: - Blood glucose is under good control -Continue Lantus 10u BID - Usually has an insulin pump but does not have this with her - Will utilize Novolog AC and HS with a CF of 40 and CR 13 - Accuchecks AC and HS - Carb consistent diet (4) Parkinsons disease: Plan: - Resume Amantadine and Sinemet - PT/OT (5) Hypertension: Plan: - maintain permissive HTN (6) A-fib: Plan: Rate controlled Continue Rivaroxaban 20mg daily Plan Plan is to d/c back to rehab when accepted Admission and Anticipated Discharge Date Admission Date: September 04, 2022 Subjective patient seen and examined, participating in PT, no slurred speech Review of Systems Review of Systems: All systems reviewed are negative, apart from the ones contained in the history. Physical Exam Physical Exam: The patient is awake, alert and oriented 3, well developed and well nourished, normocephalic and atraumatic, lying in bed and in no acute distress. HEENT--PERRL, EOMI, mucous membranes and oropharynx mildly dry Neck--supple. No JVD. No bruits. Thyroid normal, trachea midline, no adenopathy. Heart--normal S1 and S2. No murmurs, rubs or gallops. Lungs--clear bilaterally, no respiratory distress, no accessory muscle use. Abdomen--normal bowel sounds and soft. Mild epigastric and left sided abdominal pain Extremities--no cyanosis or clubbing. No edema. Dermatologic--normal skin turgor, normal color, no abnormal lymph nodes, no rash. Neurologic--cranial nerves II through XII grossly intact. mild facial droop Rheumatologic--normal range of motion. Psychiatric--normal affect. Results & Data Results & Data Vital Signs (Past 12 Hours) Vital Signs Temp Pulse Pulse Resp BP Pulse Ox O2 Del Method 09/05/22 11:48 98.2 F 83 16 124/66 99 Room Air 09/05/22 07:00 65 09/05/22 08:29 97.7 F 70 16 151/77 H 96 Room Air 09/05/22 04:01 97.7 F 82 18 123/68 97 Room Air 09/05/22 02:56 84 PG Care Time/CCT Total # of Minutes Spent Total Time Spent with Patient: Total time spent is greater than 50% in coordination of care (as documented) at patient's floor/unit and/or counseling patient: Coding Level of Care Code 48360 SUB INP/OBS CARE 2/35MIN Diagnoses Stroke-like symptoms R29.90 Status post carotid surgery Z98.890 Diabetes type 2, uncontrolled E11.65 Parkinsons disease G20 Hypertension I10 A-fib I48.91 Time Spent (min) 35
[2022-09-05] MEDS: RIVAROXABAN 20 MG TAB PO SCH (17:36)
[2022-09-05] MEDS: ASPIRIN 81 MG ECTAB PO SCH (19:54)
[2022-09-06] MEDS: ACETAMINOPHEN 325 MG TAB PO PRN ×2 (00:18→22:18)
[2022-09-06] MEDS: LORazepam 0.5 MG TAB PO PRN ×2 (00:18→22:18)
[2022-09-06] MEDS: PANTOprazole 40 MG TAB PO SCH (06:27)
[2022-09-06] MEDS: CARBIDOPA/LEVODOPA 25/100MG TAB PO SCH ×4 (06:27→22:20)
[2022-09-06] MEDS: INSULIN ASPART PER UNIT CHARGE SC SCH ×4 (08:44→21:12)
[2022-09-06] MEDS: LANTUS PER UNIT CHARGE SQ SCH ×2 (08:44→21:11)
[2022-09-06] MEDS: GABAPENTIN 300 MG CAP PO SCH ×2 (08:44→20:04)
[2022-09-06] MEDS: ATORVASTATIN 40 MG TAB PO SCH (08:45)
[2022-09-06] MEDS: CLOPIDOGREL BISULFATE 75 MG TAB PO SCH (08:45)
[2022-09-06] MEDS: LORATADINE 10 MG TAB PO SCH (08:45)
[2022-09-06] MEDS: AMANTADINE HCL 100 MG CAPSULE PO SCH ×2 (08:45→20:05)
[2022-09-06] MEDS: DOCUSATE SODIUM 100 MG CAP PO SCH ×2 (08:45→20:04)
--- NOTE | 2022-09-06 09:45 | Hospitalist Progress Note ---
Date of Service September 06, 2022 Assessment & Plan (1) Stroke-like symptoms: Plan: This is a 77-year-old female who was discharged from the hospital to rehab about 2 weeks ago. During the last admission, she was found to acute left hemispheric stroke most likely secondary to a 90% stenosis of the proximal left internal carotid artery for which she subsequently underwent TCAR. She presented from rehab with complaints of acute right hemiparesis and facial droop -She was found to have a new stroke in the left centrum semiovale on MRI brain. -She is currently on ASA, Plavix, Atorvastatin, and Xarelto, which neurology considers adequate -Will maintain permissive HTN - PT/OT eval - Plan is back to rehab when accepted (2) Status post carotid surgery: Plan: - s/p TCAR by Dr. Jay, POD#11 - New complication noted on CTA neck of hematoma in SCM with active arterial extravasation - Will need monitored - would consider repeat imaging to ensure stability - Certainly if any evidence of worsening, would consult Dr. Jay - Continue ASA and Plavix per Dr. Jay (3) Diabetes type 2, uncontrolled: Plan: - Blood glucose is under good control -Continue Lantus 10u BID - Usually has an insulin pump but does not have this with her - Will utilize Novolog AC and HS with a CF of 40 and CR 13 - Accuchecks AC and HS - Carb consistent diet (4) Parkinsons disease: Plan: - Resume Amantadine and Sinemet - PT/OT (5) Hypertension: Plan: - maintain permissive HTN (6) A-fib: Plan: Rate controlled Continue Rivaroxaban 20mg daily Plan Plan is to d/c back to rehab when accepted Admission and Anticipated Discharge Date Admission Date: September 04, 2022 Subjective patient seen and examined, participating in PT, no slurred speech, feels a lot stronger Review of Systems Review of Systems: All systems reviewed are negative, apart from the ones contained in the history. Physical Exam Physical Exam: The patient is awake, alert and oriented 3, well developed and well nourished, normocephalic and atraumatic, lying in bed and in no acute distress. HEENT--PERRL, EOMI, mucous membranes and oropharynx mildly dry Neck--supple. No JVD. No bruits. Thyroid normal, trachea midline, no adenopathy. Heart--normal S1 and S2. No murmurs, rubs or gallops. Lungs--clear bilaterally, no respiratory distress, no accessory muscle use. Abdomen--normal bowel sounds and soft. Mild epigastric and left sided abdominal pain Extremities--no cyanosis or clubbing. No edema. Dermatologic--normal skin turgor, normal color, no abnormal lymph nodes, no rash. Neurologic--cranial nerves II through XII grossly intact. mild facial droop Rheumatologic--normal range of motion. Psychiatric--normal affect. Results & Data Results & Data Vital Signs (Past 12 Hours) Vital Signs Temp Pulse Pulse Resp BP Pulse Ox O2 Del Method 09/06/22 08:43 98.4 F 63 19 136/70 97 Room Air 09/06/22 07:00 69 09/06/22 03:58 98.3 F 70 18 136/74 96 Room Air 09/05/22 22:45 77 09/05/22 23:19 98.4 F 69 18 136/76 97 Room Air PG Care Time/CCT Total # of Minutes Spent Total Time Spent with Patient: Total time spent is greater than 50% in coordination of care (as documented) at patient's floor/unit and/or counseling patient: Coding Level of Care Code 93787 SUB INP/OBS CARE 2/35MIN Diagnoses Stroke-like symptoms R29.90 Status post carotid surgery Z98.890 Diabetes type 2, uncontrolled E11.65 Parkinsons disease G20 Hypertension I10 A-fib I48.91 Time Spent (min) 35
[2022-09-06] MEDS: RIVAROXABAN 20 MG TAB PO SCH (17:59)
[2022-09-06] MEDS: ASPIRIN 81 MG ECTAB PO SCH (20:04)
[2022-09-07] MEDS: PANTOprazole 40 MG TAB PO SCH (05:31)
[2022-09-07] MEDS: CARBIDOPA/LEVODOPA 25/100MG TAB PO SCH ×4 (05:31→23:03)
[2022-09-07 06:42] LABS: Hematocrit (blood only) 36.1 % (37.0-47.0); Hemoglobin 12.1 g/dl (12.0-16.0); Mean Corpuscular Hemoglobin 29.7 pg (25.0-34.0); Mean Corpuscular Hgb Conc 33.5 g/dL (32.0-36.0); Mean Corpuscular Volume 88.7 fL (80.0-100.0); Mean Platelet Volume 10.2 fL (9.4-12.4); Platelet Count 232 K/uL (130-400); RDW Coefficient of Variation 16.5 % (11.5-14.5); RDW Standard Deviation 52.9 fL (36.4-46.3); Red Blood Count 4.07 M/uL (4.20-5.40); White Blood Count 5.76 K/ul (4.8-10.8)
[2022-09-07 06:52] LABS: Calcium 9.2 mg/dl (8.5-10.1); Creatinine Clr Calc Pharmacy 73.8 ml/min; Est GFR (African American) 98.5 ml/min; Potassium 4.3 mmol/L (3.5-5.1)
[2022-09-07] MEDS: LANTUS PER UNIT CHARGE SQ SCH ×2 (08:23→21:55)
[2022-09-07] MEDS: INSULIN ASPART PER UNIT CHARGE SC SCH ×4 (08:23→21:55)
[2022-09-07] MEDS: GABAPENTIN 300 MG CAP PO SCH ×2 (08:25→21:57)
[2022-09-07] MEDS: CLOPIDOGREL BISULFATE 75 MG TAB PO SCH (08:25)
[2022-09-07] MEDS: ATORVASTATIN 40 MG TAB PO SCH (08:25)
[2022-09-07] MEDS: DOCUSATE SODIUM 100 MG CAP PO SCH ×2 (08:25→21:57)
[2022-09-07] MEDS: LORATADINE 10 MG TAB PO SCH (08:25)
[2022-09-07] MEDS: AMANTADINE HCL 100 MG CAPSULE PO SCH ×2 (08:26→21:56)
--- NOTE | 2022-09-07 15:13 | Hospitalist Progress Note ---
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 Appreciate neurology consultation and recommendations. Continue aspirin, Plavix, atorvastatin, Xarelto. Anticipate discharge to [facility] tomorrowSeptember 08. Continue OT and PT while hospitalized. (2) Status post carotid surgery: Plan: - s/p TCAR by Dr. Jay, POD#12. Stable. Continue current medical management. Small hematoma at the surgical site noted on neck CTA. (3) Diabetes type 2, uncontrolled: Plan: ADA diet. Basal insulin therapy. Sliding scale coverage. (4) Parkinsons disease: Plan: contimue Amantadine and Sinemet (5) Hypertension: Plan: permissive HTN. Medical management (6) A-fib: Plan: Rate controlled. Continue current medical management. Continue Rivaroxaban Plan Plan is to d/c back to [facility] rehab. Hopefully tomorrSeptember 08 Admission and Anticipated Discharge Date Admission Date: September 04, 2022 Subjective Alert and oriented. Pleasant. Lantus uptitrated for better glucose control. Anticipate discharge to [facility] tomorrowSeptember 08 Review of Systems Review of Systems: Constitutional-no fever or chills ENT-no blurred vision, no double vision, no epistaxis, no sore throat Respiratory-no cough, no wheezing, no shortness of breath Cardiac-no palpitations, no chest pain, no syncope GI-no nausea, vomiting, diarrhea, melena, hematochezia -no urinary retention, no urinary incontinence, no dysuria, no hematuria Musculoskeletal-no joint pain, no muscle tenderness Skin-no bruising, no rashes, no pruritus Neuro-no isolated weakness, no paresthesia Psych-no depression, no anxiety Physical Exam Physical Exam: General-alert and oriented x3, no fevers, no chills HEENT-head atraumatic and normocephalic, pupils equal and reactive to light, extraocular muscles intact Neck-no lymphadenopathy or thyromegaly, trachea midline Chest-clear to auscultation percussion. No rales wheezing or rhonchi Cardiac-regular rate and rhythm, normal S1 and S2 Abdomen-normal bowel sounds, nontender, no hepatosplenomegaly Extremities-no cyanosis, clubbing, or edema Neuro-cranial nerves II through XII intact, motor and sensory function within normal limits, strength symmetrical , no focal deficits Psych-normal affect, normal mood Results & Data Results & Data Vital Signs (Past 12 Hours) Vital Signs Temp Pulse Resp BP Pulse Ox O2 Del Method 09/07/22 11:53 36.3 C L 64 20 120/79 97 Room Air 09/07/22 08:21 36.7 C 70 19 116/72 100 Room Air 09/07/22 03:07 36.5 C 68 18 132/73 97 Room Air Laboratory Results 09/07/22 06:13 09/07/22 06:13 PG Care Time/CCT Total # of Minutes Spent Total Time Spent with Patient: Total time spent is greater than 50% in coordination of care (as documented) at patient's floor/unit and/or counseling patient: Coding Level of Care Code 25396 SUB INP/OBS CARE 3/50MIN Diagnoses Stroke-like symptoms R29.90 Status post carotid surgery Z98.890 Diabetes type 2, uncontrolled E11.65 Parkinsons disease G20 Hypertension I10 A-fib I48.91
[2022-09-07] MEDS: RIVAROXABAN 20 MG TAB PO SCH (17:07)
[2022-09-07] MEDS: ACETAMINOPHEN 325 MG TAB PO PRN (21:55)
[2022-09-07] MEDS: LORazepam 0.5 MG TAB PO PRN (21:56)
[2022-09-07] MEDS: ASPIRIN 81 MG ECTAB PO SCH (21:56)
[2022-09-08] MEDS: CARBIDOPA/LEVODOPA 25/100MG TAB PO SCH ×2 (06:37→11:09)
[2022-09-08] MEDS: PANTOprazole 40 MG TAB PO SCH (06:37)
[2022-09-08] MEDS: INSULIN ASPART PER UNIT CHARGE SC SCH ×2 (08:53→12:52)
[2022-09-08] MEDS: LANTUS PER UNIT CHARGE SQ SCH (08:53)
[2022-09-08] MEDS: AMANTADINE HCL 100 MG CAPSULE PO SCH (08:55)
[2022-09-08] MEDS: ATORVASTATIN 40 MG TAB PO SCH (08:56)
[2022-09-08] MEDS: CLOPIDOGREL BISULFATE 75 MG TAB PO SCH (08:56)
[2022-09-08] MEDS: DOCUSATE SODIUM 100 MG CAP PO SCH (08:57)
[2022-09-08] MEDS: LORATADINE 10 MG TAB PO SCH (08:57)
[2022-09-08] MEDS: GABAPENTIN 300 MG CAP PO SCH (08:57)
[2022-09-08] MEDS ORDERED: INSULIN ASPART PER UNIT CHARGE SC STA (12:22)
--- NOTE | 2022-09-08 13:49 | Discharge Summary ---
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 Patient was discharged to acute rehab and was brought back to the hospital on 08/26 for planned left transcarotid artery revascularization. Following the procedure, she had a new onset of mild right facial droop but otherwise remained stable without any immediate complications following the procedure. She was doing well until this morning around 10am when she began experiencing lip tingling, worsening speech, and headache. Patient mentioned that she had some tingling in her feet and arms. Documentation that came with her from [facility] indicated a R arm drift as well. Her work up in the ER included a CT and CTA head as well as neck which demonstrated an area of hypodense focus in the left frontal lobe that could represent evolution of patient's recently identified subacute/chronic L frontal lobe infarct seen on 08/16 MRI. Otherwise no acute infarct seen. In addition, small intramuscular hem atoma within the base of the left SCM which contains a small focus of gas and small focus of active arterial extravasation which may be due to psotoperative change. This was discussed directly with Dr. Jay who felt that this was all postoperative and did not require any intervention at this time. Patient was mildly hypertensive in the ED with a BP of 160/75 but currently is on no BP meds. She did not receive any medications in the emergency room this evening. Her symptoms have all primarily resolved except the R facial droop, of which has been present since her carotid artery surgery. She has been referred to hospitalist service for admission d/t stroke-like symptoms. Principal Diagnosis Ischemic left centrum semiovale CVA Discharge Exam General-alert and oriented x3, no fevers, no chills HEENT-head atraumatic and normocephalic, pupils equal and reactive to light, extraocular muscles intact Neck-no lymphadenopathy or thyromegaly, trachea midline Chest-clear to auscultation percussion. No rales wheezing or rhonchi Cardiac-regular rate and rhythm, normal S1 and S2 Abdomen-normal bowel sounds, nontender, no hepatosplenomegaly Extremities-no cyanosis, clubbing, or edema Neuro-cranial nerves II through XII intact, motor and sensory function within normal limits, mild right facial droop noted. Mild right hemiparesis Psych-normal affect, normal mood Discharge Data Allergies Allergy/AdvReac Type Severity Reaction Status Date / Time benztropine Allergy Unknown PT NOT SURE Verified 09/04/22 16:45 citalopram Allergy Unknown PT NOT SURE Verified 09/04/22 16:45 doxycycline Allergy Unknown REMOTE HX, Verified 09/04/22 16:45 PT NOT SURE REACTION minocycline Allergy Unknown REMOTE HX, Verified 09/04/22 16:45 PT NOT SURE REACTION simvastatin Allergy Unknown PT NOT SURE Verified 09/04/22 16:45 sulindac Allergy Unknown PT NOT SURE Verified 09/04/22 16:45 empagliflozin AdvReac Intermediate Recurrent Verified 09/04/22 16:45 [From Jardiance] Urinary Tract Infection Consultations 09/04/22 17:01 ED Decision to Admit Stat 09/05/22 07:56 Consult Neurology Routine Ordered Studies 09/04/22 15:40 CT angio head w con Stat CT angio neck with con Stat CT head/brain wo con Stat 09/04/22 18:36 MRI Brain [MR brain wo con] Routine Hospital Course (1) Stroke-like symptoms: 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 Appreciate neurology consultation and recommendations. Continue aspirin, Plavix, atorvastatin, Xarelto. 3 Continue OT and PT while hospitalized. (2) Status post carotid surgery: - s/p TCAR by Dr. Jay, POD#13. Stable. Continue current medical management. Small hematoma at the surgical site noted on neck CTA. (3) Diabetes type 2, uncontrolled: ADA diet. Basal insulin therapy. Sliding scale coverage. (4) Parkinsons disease: contimue Amantadine and Sinemet (5) Hypertension: permissive HTN. Medical management (6) A-fib: Rate controlled. Continue current medical management. Continue Rivaroxaban Plan Plan is to d/c back to [facility] rehab today, September 08 Total Time Total Time Spent Total Time Spent (In Minutes): 40 minutes Discharge Plan Discharge Items Patient Disposition: Transfer Inpatient Rehab Fac Reason For Visit: TIA Discharge Diagnosis: Ischemic left centrum semioval valve CVA Activity: Resume your previous activity Non-emergency contact: Primary Care Provider Call non-emergency contact if: you have any medication questions Follow-up/Referrals: [facility] [Primary Care Provider] - Diet: Carb Consistent or DM2 and Heart Healthy Addtl Attending Provider Instructions: All medications remain the same Pending Studies at Discharge: No Stand-Alone Forms: My [facility] Skilled Items Patient informed of condition?: Yes DNR: No Discharge Level of Care: Acute rehab Communicable Disease: No Discharge Prognosis: Stable Lines: None Urinary Catheter: No Medications and DC Order Prescriptions: Continued (DME) FreeStyle Ruben 2 Sensor Kit See Rx Instructions .ROUTE .MEDSUPPLY Qty: 1 Rx Instructions: As directed amantadine HCl 100 mg capsule 100 mg PO [facility] (DME) OneTouch Verio test strips Strip See Rx Instructions .ROUTE .MEDSUPPLY Qty: 10 Rx Instructions: Test blood sugar once daily PRN gabapentin 300 mg capsule 300 mg PO BID aspirin [Yariel Low Dose Aspirin] 81 mg tablet,delayed release (DR/EC) 81 mg PO HS lorazepam 0.5 mg tablet 0.5 mg PO BID PRN (Reason: Anxiety) Xarelto 20 mg tablet 20 mg PO HS carbidopa-levodopa 25-100 mg tablet 2 tab PO Q6H clopidogrel [Plavix] 75 mg Tablet 75 mg PO DAILY atorvastatin 40 mg Tablet 40 mg PO QAM sennosides [Senokot] 8.6 mg Tablet 8.6 mg PO QDL PRN (Reason: Constipation) bisacodyl 10 mg Suppository 10 mg MT DAILY PRN (Reason: Constipation) pantoprazole [Protonix] 40 mg Tablet,Delayed Release (Dr/Ec) 40 mg PO DAILYBB Humulin R Regular U-100 Insuln 100 unit/mL Solution 1 sliding scale dose SUBCUT USEASDIRECTD Patient Comments: patient doesnt remember how many units Rx Instructions: 70 = hypoglycemia protocol 70-130=0 units 131-180=2 units 181-240=4 units 241-300=6 units 301-350=8 units 351-400=10 units great than 400=12 units Fleet Enema 19-7 gram/118 mL Enema 118 ml MT DAILY PRN (Reason: Constipation) polyethylene glycol 3350 [Miralax] 17 gram/dose Powder 17 g PO QDL PRN (Reason: Constipation) ondansetron 4 mg Tablet,Disintegrating 4 mg PO Q4H PRN (Reason: nausea or vomiting) fluticasone propionate [Flonase Allergy Relief] 50 mcg/actuation [place],Suspension 2 spray INTRANASAL QAM Rx Instructions: administer into each nostril loratadine 10 mg Tablet 10 mg PO DAILY magnesium hydroxide [Milk Of Magnesia Concentrated] 2,400 mg/10 mL Suspension 30 ml PO DAILY PRN (Reason: Constipation) insulin glargine [Lantus Solostar U-100 Insulin] 100 unit/mL (3 mL) Insulin Pen 10 unit SUBCUT BID acetaminophen [Tylenol] 325 mg Tablet 650 mg PO Q4H PRN (Reason: Pain (Scale Score 1-3)) acetaminophen-codeine 300-30 mg tablet 1 tab PO Q4H PRN (Reason: Pain (Scale Score 4-10)) docusate sodium 100 mg Capsule 100 mg PO BID naloxone 4 mg/actuation [place],Non-Aerosol 4 mg INTRANASAL ONCE PRN (Reason: Opioid Overdose) Discharge Orders: Discharge Order (Routine); Ordered 09/08/22 Ordered By: Theodore Blas Admission Data Admit Date/Time: 09/04/22 18:04 Attending Provider: Theodore Blas Admit Provider: Alexander Guido [facility] Other Providers: Alexander Guido ; Vaughn Gage ; [facility] Coding Level of Care Code 23457 INP/OBS DISCH >30 MIN Diagnoses Stroke-like symptoms R29.90 Status post carotid surgery Z98.890 Diabetes type 2, uncontrolled E11.65 Parkinsons disease G20 Hypertension I10 A-fib I48.91
== END 2022-09-08 15:48 | DRG 65 ==
LOC: ED 15:46 → 4W 18:04 → SUATTDRO 18:04 → 4W 21:44

== ENCOUNTER 2022-11-13 13:26 | Inpatient (IN) ==
--- NOTE | 2022-11-13 13:39 | Emergency Department Note ---
Impression & Plan Facial droop, Slurred speech ED Provider Note NAME: BASSEM VIVEROS AGE: 77 SEX: F : 1945 ARRIVES VIA: Ambulance INFORMANT: Patient, EMS ED PROVIDER(S): Renzo Garcia DO CHIEF COMPLAINT: slurred speech and facial droop HPI: Patient is a 77-year-old female who presents to the ER for slurred speech and facial droop. Pt has a past medical history of of Parkinson's disease, T2DM with diabetic retinopathy, HTN, paroxysmal afib on Xarelto who was recently hospitalized 08/16 through 08/20 due to expressive aphasia found to be secondary to an ischemic infarct within the left cerebral hemisphere and a 90% stenosis of the L ICA. Patient was discharged to acute rehab and was brought back to the hospital on 08/26 for planned left transcarotid artery revascularization She notes she woke up and was not feeling well. She was having trouble with her speech. This gradually got worse over the past hour. She denies any headache or change in vision. No chest pain or shortness of breath. No nausea, vomiting, or diarrhea. She denies any weakness or numbness in her arms or legs. She did have a recent stroke. PAST MEDICAL HISTORY:See Below PAST SURGICAL HISTORY:See Below FAMILY HISTORY:See Below SOCIAL HISTORY:See Below HOME MEDICATIONS:See Below ALLERGIES:See Below VITALS:See Below PHYSICAL EXAMINATION: GENERAL: Sitting up in bed, alert, well appearing, well nourished, no distress, non-toxic EYE EXAM: normal conjunctiva. PERRL and EOM's intact. OROPHARYNX: no exudate, no erythema, lips, buccal mucosa, and tongue normal and mucous membranes are moist NECK: supple, no nuchal rigidity, no adenopathy, non-tender LUNGS: Clear to auscultation. Normal chest wall mechanics HEART: no murmurs, S1 normal and S2 normal ABDOMEN: abdomen soft, non-tender, normo-active bowel sounds, no masses, no rebound or guarding. UPPER EXTREMITIES: upper extremities are grossly normal. LOWER EXTREMITIES: No pitting edema. NEURO EXAM: Normal sensorium, right-sided facial droop, slurred speech, no wea kness of arms, no weakness of legs. No drift. Finger to nose intact. Gross sensation intact. MEDICAL DECISION MAKING: Patient is a 77-year-old female who presents ER for above-stated complaint. IV established and blood work and was obtained. External records reviewed. She is not a TNK candidate as she woke up and her speech did not feel right as well as she is also taking Xarelto. CT angios of the head and neck were negative. Patient is currently on Plavix as well. Labs show no significant leukocytosis or anemia. PTT slightly elevated at 31. BMP was remarkable for glucose of 370 which she notes is about where she normally runs. Magnesium was normal. LFTs were unremarkable. Patient was given 5 units of IV insulin. [facility] recommended after reviewing her extensive recent history of multiple strokes as well as carotid surgery admission and a complete work-up. I discussed with Dr. Kristopher Cortes for further evaluation management treatment. Patient was updated at bedside and all questions were answered. Triage Nursing notes reviewed. Limited review of prior medical records performed Vital Signs: reviewed and remarkable for no significant abnormalities Differential diagnosis: Differential Diagnosis includes but is not limited to ischemic Stroke, hemorrhagic stroke, bells palsy, mass, neoplasm, migraine headache, seizure, subarachnoid hemorrhage, TIA, and transient global amnesia. ER treatment provided: See below Diagnostics interpreted by me include EKG and cardiac monitoring as listed b elow: -Cardiac Monitoring: An order was placed for continuous cardiac monitoring. The monitor shows a rate of 80 with sinus rhythm. -ECG: A-fib rate of 76 Left axis No PVCs QTc 391 -Laboratory studies:Interpreted by me as stated above in MDM and shown below. Imaging studies: Xrays: As interpreted by me:Portable AP upright 1 view of the chest shows no pneumonia CTs show: CT angios of the head and neck were negative. Consultation(s): Discussed with Dr. Lucas who recommends admission and further work-up. Not a TNK candidate. Procedures:none Critical Care: None Past Med/Surg History Medical History Acoustic neuroma Anxiety Chronic heart failure Complicated migraine Diabetes DVT prophylaxis GERD (gastroesophageal reflux disease) H/O head and neck radiation History of colon polyps History of high cholesterol History of TIA (transient ischemic attack) Hypertension Mitral valve disorder Obesity Parkinson disease Permanent atrial fibrillation Stroke Symptomatic stenosis of left carotid artery Surgical History H/O breast biopsy History of bilateral tubal ligation History of bunionectomy History of colonoscopy History of esophagogastroduodenoscopy (EGD) History of eye surgery History of left knee replacement History of loop recorder S/P appendectomy S/P cholecystectomy Status post carotid surgery Family History Mother Diabetes Congestive heart failure Colorectal cancer Hypertension Brother Congestive heart failure Colorectal cancer Sister Cancer Unknown Pancreatic cancer Son Family history of colonic polyps Social History Smoking Status: Never smoker Second Hand Exposure: No; Do You Dip or Chew Tobacco: No; Hx Alcohol Use: No Hx Substance Use: No Preferred Language: Nepali Communication Ability: Effective Visual Impairment: No Limitations Machine Tack Puller Required: No Beliefs That Will Affect Care: None marital status: Unknown Current Living Situation: Personal Care Facility Current Living Situation Comment: from [facility] How many Children do You have: 2 Feels Safe at Home: Yes Assistive Devices: Cane and Walker Allergies Allergies Allergy/AdvReac Type Severity Reaction Status Date / Time benztropine Allergy Unknown PT NOT SURE Verified 10/28/22 09:45 citalopram Allergy Unknown PT NOT SURE Verified 10/28/22 09:45 doxycycline Allergy Unknown REMOTE HX, Verified 10/28/22 09:45 PT NOT SURE REACTION minocycline Allergy Unknown REMOTE HX, Verified 10/28/22 09:45 PT NOT SURE REACTION simvastatin Allergy Unknown PT NOT SURE Verified 10/28/22 09:45 sulindac Allergy Unknown PT NOT SURE Verified 10/28/22 09:45 empagliflozin AdvReac Intermediate Recurrent Verified 10/28/22 09:45 [From Jay] Urinary Tract Infection Home Meds Home Medications Medication Instructions Recorded Confirmed aspirin 81 mg tablet,delayed 81 mg PO HS 01/19/19 10/28/22 release (Yariel Low Dose Aspirin) lorazepam 0.5 mg tablet 0.5 mg PO BID PRN Anxiety 11/08/19 10/28/22 rivaroxaban 20 mg tablet (Xarelto) 20 mg PO HS 11/08/19 10/28/22 carbidopa 25 mg-levodopa 100 mg 2 tab PO Q6H 02/07/20 10/28/22 tablet flash glucose sensor (FreeStyle #1 ea 09/02/20 10/28/22 Ruben 2 Sensor kit) gabapentin 300 mg capsule 300 mg PO BID 10/15/21 10/28/22 amantadine HCl 100 mg capsule 100 mg PO AMHS 01/13/22 10/28/22 blood sugar diagnostic (OneTouch #10 ea 01/13/22 10/28/22 Verio test strips) atorvastatin 40 mg tablet 40 mg PO QAM 08/24/22 10/28/22 bisacodyl 10 mg rectal suppository 10 mg [place] DAILY PRN Constipation 08/24/22 10/28/22 clopidogrel 75 mg tablet (Plavix) 75 mg PO DAILY 08/24/22 10/28/22 fluticasone propionate 50 2 spray intranasal QAM 08/24/22 10/28/22 mcg/actuation nasal spray,suspension (Flonase Allergy Relief) insulin glargine 100 unit/mL (3 10 unit subcut BID 08/24/22 10/28/22 mL) subcutaneous pen (Lantus Solostar U-100 Insulin) insulin regular human 100 unit/mL 1 sliding scale dose subcut 08/24/22 10/28/22 injection solution (Humulin R USEASDIRECTD Regular U-100 Insulin) loratadine 10 mg tablet 10 mg PO DAILY 08/24/22 10/28/22 magnesium hydroxide 2,400 mg/10 mL 30 ml PO DAILY PRN Constipation 08/24/22 10/28/22 oral suspension (Milk Of Magnesia Concentrated) ondansetron 4 mg disintegrating 4 mg PO Q4H PRN nausea or vomiting 08/24/22 10/28/22 tablet pantoprazole 40 mg tablet,delayed 40 mg PO DAILYBB 08/24/22 10/28/22 release (Protonix) polyethylene glycol 3350 17 17 g PO QDL PRN Constipation 08/24/22 10/28/22 gram/dose oral powder (Miralax) sennosides 8.6 mg tablet (Senokot) 8.6 mg PO QDL PRN Constipation 08/24/22 10/28/22 sodium phosphates 19 gram-7 118 ml [place] DAILY PRN Constipation 08/24/22 10/28/22 gram/118 mL enema (Fleet Enema) acetaminophen 300 mg-codeine 30 mg 1 tab PO Q4H PRN Pain (Scale Score 09/04/22 10/28/22 tablet 4-10) acetaminophen 325 mg tablet 650 mg PO Q4H PRN Pain (Scale 09/04/22 10/28/22 (Tylenol) Score 1-3) docusate sodium 100 mg capsule 100 mg PO BID 09/04/22 10/28/22 naloxone 4 mg/actuation nasal spray 4 mg intranasal ONCE PRN Opioid 09/04/22 10/28/22 Overdose Previous Rx's Medication Instructions Recorded insulin syringe-needle U-100 1 mL #300 ea 09/28/22 31 gauge x 5/16" (BD Insulin Syringe Ultra-Fine) Results & Data (ED) Vital Signs Vital Signs - 24 hr 11/13/22 13:20 11/13/22 14:15 Temperature 36.5 C Temperature Source Oral Pulse Rate 74 78 Respiratory Rate 16 Respiratory Effort / Characteristics Non-Labored Respiratory Depth Normal Blood Pressure 157/77 H Blood Pressure Mean 103 Blood Pressure Position Lying Pulse Oximetry 97 Oxygen Delivery Method Room Air Sepsis Recent Fever Within 48 Hours No Sepsis New/Unexplained Change in Mental Status No Sepsis Action Taken by Nursing No Action Required Laboratory Data 11/13/22 13:49 11/13/22 13:49 Lab Results 11/13/22 11/13/22 11/13/22 Range/Units 13:49 13:49 13:49 WBC 5.55 (4.8-10.8) K/ul RBC 4.09 L (4.20-5.40) M/uL Hgb 11.8 L (12.0-16.0) g/dl Hct 35.3 L (37.0-47.0) % MCV 86.3 (80.0-100.0) fL MCH 28.9 (25.0-34.0) pg MCHC 33.4 (32.0-36.0) g/dL RDW Std Deviation 43.7 (36.4-46.3) fL RDW Coeff of Vicky 13.9 (11.5-14.5) % Plt Count 180 (130-400) K/uL MPV 10.6 (9.4-12.4) fL Immature Gran % (Auto) 0.7 % Neut % (Auto) 74.1 % Lymph % (Auto) 14.4 % Pine % (Auto) 8.5 % Eos % (Auto) 1.8 % Baso % (Auto) 0.5 % Neut # (Auto) 4.11 (1.40-6.50) K/uL Lymph # (Auto) 0.80 L (1.2-3.4) K/uL Pine # (Auto) 0.47 (0.11-0.59) K/uL Eos # (Auto) 0.10 (0-0.50) K/uL Baso # (Auto) 0.03 (0-0.2) K/uL Immature Gran # (Auto) 0.04 (0.01-0.20) K/uL PT 12.4 H (9.0-12.0) Seconds INR 1.1 (0.9-1.1) APTT 31.2 H (21.0-31.0) Seconds PTT Ratio 1.1 Sodium 135 L (136-145) mmol/L Potassium 3.8 (3.5-5.1) mmol/L Chloride 104 (98-107) mmol/L Carbon Dioxide 23 (21-32) mmol/L Anion Gap 8 (3-11) BUN 26 H (6-23) mg/dl Creatinine 0.75 (0.6-1.2) mg/dl Est Cr Clr Drug Dosing 66.0 ml/min Est GFR ( Amer) 89.7 ml/min Est GFR (Non-Af Amer) 77.4 ml/min BUN/Creatinine Ratio 34.7 H (10-20) Glucose 376 H* (70-99(Fasting)) mg/dl Calcium 8.4 L (8.6-10.3) mg/dl Magnesium 2.0 (1.7-2.4) mg/dl Total Bilirubin 0.8 (0.2-1.0) mg/dl AST 10 L (13-39) U/L ALT < 3 L (7-52) U/L Alkaline Phosphatase 85 (34-104) U/L Total Protein 5.8 L (6.0-8.3) gm/dl Albumin 3.5 (3.4-5.0) gm/dl Globulin 2.3 L (2.5-4.0) gm/dl Albumin/Globulin Ratio 1.5 (0.9-2) SARS-CoV-2, RNA, NAAT (NEGATIVE) 11/13/22 Range/Units 13:58 WBC (4.8-10.8) K/ul RBC (4.20-5.40) M/uL Hgb (12.0-16.0) g/dl Hct (37.0-47.0) % MCV (80.0-100.0) fL MCH (25.0-34.0) pg MCHC (32.0-36.0) g/dL RDW Std Deviation (36.4-46.3) fL RDW Coeff of Vicky (11.5-14.5) % Plt Count (130-400) K/uL MPV (9.4-12.4) fL Immature Gran % (Auto) % Neut % (Auto) % Lymph % (Auto) % Pine % (Auto) % Eos % (Auto) % Baso % (Auto) % Neut # (Auto) (1.40-6.50) K/uL Lymph # (Auto) (1.2-3.4) K/uL Pine # (Auto) (0.11-0.59) K/uL Eos # (Auto) (0-0.50) K/uL Baso # (Auto) (0-0.2) K/uL Immature Gran # (Auto) (0.01-0.20) K/uL PT (9.0-12.0) Seconds INR (0.9-1.1) APTT (21.0-31.0) Seconds PTT Ratio Sodium (136-145) mmol/L Potassium (3.5-5.1) mmol/L Chloride (98-107) mmol/L Carbon Dioxide (21-32) mmol/L Anion Gap (3-11) BUN (6-23) mg/dl Creatinine (0.6-1.2) mg/dl Est Cr Clr Drug Dosing ml/min Est GFR ( Amer) ml/min Est GFR (Non-Af Amer) ml/min BUN/Creatinine Ratio (10-20) Glucose (70-99(Fasting)) mg/dl Calcium (8.6-10.3) mg/dl Magnesium (1.7-2.4) mg/dl Total Bilirubin (0.2-1.0) mg/dl AST (13-39) U/L ALT (7-52) U/L Alkaline Phosphatase (34-104) U/L Total Protein (6.0-8.3) gm/dl Albumin (3.4-5.0) gm/dl Globulin (2.5-4.0) gm/dl Albumin/Globulin Ratio (0.9-2) SARS-CoV-2, RNA, NAAT NEGATIVE (NEGATIVE) Administered Medications Discontinued Medications Ioversol (Optiray 320 500ml) 120 ml IV ONCE ONE Stop: 11/13/22 13:42 Last Admin: 11/13/22 13:42 Dose: 120 ml Documented By: RON Imaging Data Radiologist's Impression: Chest X-Ray 11/13/22 13:23 XR chest 1V portable CLINICAL HISTORY: neuro deficit, acute stroke suspected TECHNIQUE: Single frontal radiograph of the chest was obtained. Comparison: Comparison is made to chest radiograph 09/04/2022 FINDINGS: No lines and tubes are seen. Cardiomegaly is noted. The lungs are clear. No evidence of pleural effusion or pneumothorax. IMPRESSION: No acute chest disease. Cardiomegaly is noted. ACT 112: Negative or not required by law. Electronically signed by: Delon Lewis M.D. 11/13/2022 2:[address] 11/13/22 13:23 CT angio neck with con, CT angio head w con, CT head/brain wo con CLINICAL HISTORY: neuro deficit, acute stroke suspected TECHNIQUE: Contiguous axial CT images of the head were acquired from the base of the skull to the vertex without intravenous contrast administration. CT angiography of the head and neck was performed following intravenous adm inistration of iodinated contrast. Coronal and sagittal MIPS were obtained from the axial data set and were submitted for review. Automated dose lowering techniques and/or adjustment according to patient size were utilized for this examination. All measurements were calculated based on NASCET criteria. CT DOSE: 1132.94 mGy.cm Comparison: Comparison is made to MRI brain 09/04/2022 FINDINGS: CT head: Areas of decreased attenuation are present in the periventricular and subcortical white matter bilaterally consistent with small vessel ischemic disease. Generalized cerebral atrophy with commensurate enlargement of the ventricles, sulci, and cisterns is also present. There is no acute intracranial hemorrhage or evidence of acute territorial infarction. No shift of the midline structures, mass effect, or extra-axial abnormalities are shown. Atherosclerotic calcifications are present in the intracranial segments of the internal carotid arteries. Thyromegaly is seen with a prominent heterogeneous right thyroid nodule. CTA Neck: A 3 vessel aortic arch is shown. There is no significant atherosclerotic plaque in the aortic arch or the origins of the innominate, left common carotid, and left subclavian arteries. The common carotid, external carotid, cervical segments of the internal carotid arteries, and the cervical segments of the vertebral arteries are patent without hemodynamically significant stenosis. The left vertebral artery is dominant. CTA Head: The anterior and posterior cerebral circulations are patent. No hemodynamically significant stenosis, aneurysm, dissection, or arteriovenous m alformation is shown. IMPRESSION: 1. No acute intracranial hemorrhage, evidence of acute territorial infarction, or other acute intracranial disease process. 2. No occlusion, hemodynamically significant stenosis, or dissection in the major cervical arteries. 3. No occlusion, hemodynamically significant stenosis, aneurysm, dissection, or arteriovenous malformation in the major intracranial arteries. Assessment of stenosis of the internal carotid arteries is based on NASCET criteria. ACT 112: Negative or not required by law. Electronically signed by: Delon Lewis M.D. 11/13/2022 2:02 PM Head CTA 11/13/22 13:23 CT angio neck with con, CT angio head w con, CT head/brain wo con CLINICAL HISTORY: neuro deficit, acute stroke suspected TECHNIQUE: Contiguous axial CT images of the head were acquired from the base of the skull to the vertex without intravenous contrast administration. CT angiog fidencio of the head and neck was performed following intravenous administration of iodinated contrast. Coronal and sagittal MIPS were obtained from the axial data set and were submitted for review. Automated dose lowering techniques and/or adjustment according to patient size were utilized for this examination. All measurements were calculated based on NASCET criteria. CT DOSE: 1132.94 mGy.cm Comparison: Comparison is made to MRI brain 09/04/2022 FINDINGS: CT head: Areas of decreased attenuation are present in the periventricular and subcortical white matter bilaterally consistent with small vessel ischemic disease. Generalized cerebral atrophy with commensurate enlargement of the ventr icles, sulci, and cisterns is also present. There is no acute intracranial hemorrhage or evidence of acute territorial infarction. No shift of the midline structures, mass effect, or extra-axial abnormalities are shown. Atherosclerotic calcifications are present in the intracranial segments of the internal carotid arteries. Thyromegaly is seen with a prominent heterogeneous right thyroid nodule. CTA Neck: A 3 vessel aortic arch is shown. There is no significant atherosclerotic plaque in the aortic arch or the origins of the innominate, left common carotid, and left subclavian arteries. The common carotid, external carotid, cervical segments of the internal carotid arteries, and the cervical segments of the vertebral arteries are patent without hemodynamically significant stenosis. The left vertebral artery is dominant. CTA Head: The anterior and posterior cerebral circulations are patent. No hemodynamically significant stenosis, aneurysm, dissection, or arteriovenous malformation is shown. IMPRESSION: 1. No acute intracranial hemorrhage, evidence of acute territorial infarction, or other acute intracranial disease process. 2. No occlusion, hemodynamically significant stenosis, or dissection in the major cervical arteries. 3. No occlusion, hemodynamically significant stenosis, aneurysm, dissection, or arteriovenous malformation in the major intracranial arteries. Assessment of stenosis of the internal carotid arteries is based on NASCET criteria. ACT 112: Negative or not required by law. Electronically signed by: Delon Lewis M.D. 11/13/2022 2:02 PM Neck CTA 11/13/22 13:23 CT angio neck with con, CT angio head w con, CT head/brain wo con CLINICAL HISTORY: neuro deficit, acute stroke suspected TECHNIQUE: Contiguous axial CT images of the head were acquired from the base of the skull to the vertex without intravenous contrast administration. CT angiography of the head and neck was performed following intravenous administration of iodinated contrast. Coronal and sagittal MIPS were obtained from the axial data set and were submitted for review. Automated dose lowering techniques and/or adjustment according to patient size were utilized for this examination. All measurements were calculated based on NASCET criteria. CT DOSE: 1132.94 mGy.cm Comparison: Comparison is made to MRI brain 09/04/2022 FINDINGS: CT head: Areas of decreased attenuation are present in the periventricular and subcortical white matter bilaterally consistent with small vessel ischemic disease. Generalized cerebral atrophy with commensurate enlargement of the ventricles, sulci, and cisterns is also present. There is no acute intracranial hemorrhage or evidence of acute territorial infarction. No shift of the midline structures, mass effect, or extra-axial abnormalities are shown. Atherosclerot ic calcifications are present in the intracranial segments of the internal carotid arteries. Thyromegaly is seen with a prominent heterogeneous right thyroid nodule. CTA Neck: A 3 vessel aortic arch is shown. There is no significant atherosclerotic plaque in the aortic arch or the origins of the innominate, left common carotid, and left subclavian arteries. The common carotid, external carotid, cervical segments of the internal carotid arteries, and the cervical segments of the vertebral arteries are patent without hemodynamically significa nt stenosis. The left vertebral artery is dominant. CTA Head: The anterior and posterior cerebral circulations are patent. No hemodynamically significant stenosis, aneurysm, dissection, or arteriovenous malformation is shown. IMPRESSION: 1. No acute intracranial hemorrhage, evidence of acute territorial infarction, or other acute intracranial disease process. 2. No occlusion, hemodynamically significant stenosis, or dissection in the major cervical arteries. 3. No occlusion, hemodynamically significant stenosis, aneurysm, dissection, or arteriovenous malformation in the major intracranial arteries. Assessment of stenosis of the internal carotid arteries is based on NASCET criteria. ACT 112: Negative or not required by law. Electronically signed by: Delon Lewis M.D. 11/13/2022 2:02 PM Discharge Plan Visit Data Chief Complaint: Stroke Alert Stated Complaint: STROKE ALERT ED Provider: Renzo Garcia Discharge Problem: Facial droop, Slurred speech Forms Stand Alone Forms: [facility] Prescriptions Prescriptions: No Action (DME) insulin syringe-needle U-100 [BD Insulin Syringe Ultra-Fine] 1 mL 31 gauge x 5/16 syringe See Rx Instructions .Route Qty: 300 3RF Rx Instructions: use to inject insulin three times a day (DME) FreeStyle Ruben 2 Sensor Kit See Rx Instructions .ROUTE .MEDSUPPLY Qty: 1 Rx Instructions: As directed amantadine HCl 100 mg capsule 100 mg PO AMHS (DME) OneTouch Verio test strips Strip See Rx Instructions .ROUTE .MEDSUPPLY Qty: 10 Rx Instructions: Test blood sugar once daily PRN gabapentin 300 mg capsule 300 mg PO BID aspirin [Yariel Low Dose Aspirin] 81 mg tablet,delayed release (DR/EC) 81 mg PO HS lorazepam 0.5 mg tablet 0.5 mg PO BID PRN (Reason: Anxiety) Xarelto 20 mg tablet 20 mg PO HS carbidopa-levodopa 25-100 mg tablet 2 tab PO Q6H clopidogrel [Plavix] 75 mg Tablet 75 mg PO DAILY atorvastatin 40 mg Tablet 40 mg PO QAM sennosides [Senokot] 8.6 mg Tablet 8.6 mg PO QDL PRN (Reason: Constipation) bisacodyl 10 mg Suppository 10 mg [place] DAILY PRN (Reason: Constipation) pantoprazole [Protonix] 40 mg Tablet,Delayed Release (Dr/Ec) 40 mg PO DAILYBB Humulin R Regular U-100 Insuln 100 unit/mL Solution 1 sliding scale dose SUBCUT USEASDIRECTD Patient Comments: patient doesnt remember how many units Rx Instructions: 70 = hypoglycemia protocol 70-130=0 units 131-180=2 units 181-240=4 units 241-300=6 units 301-350=8 units 351-400=10 units great than 400=12 units Fleet Enema 19-7 gram/118 mL Enema 118 ml [place] DAILY PRN (Reason: Constipation) polyethylene glycol 3350 [Miralax] 17 gram/dose Powder 17 g PO QDL PRN (Reason: Constipation) ondansetron 4 mg Tablet,Disintegrating 4 mg PO Q4H PRN (Reason: nausea or vomiting) fluticasone propionate [Flonase Allergy Relief] 50 mcg/actuation Collins,Suspension 2 spray INTRANASAL QAM Rx Instructions: administer into each nostril loratadine 10 mg Tablet 10 mg PO DAILY magnesium hydroxide [Milk Of Magnesia Concentrated] 2,400 mg/10 mL Suspension 30 ml PO DAILY PRN (Reason: Constipation) insulin glargine [Lantus Solostar U-100 Insulin] 100 unit/mL (3 mL) Insulin Pen 10 unit SUBCUT BID acetaminophen [Tylenol] 325 mg Tablet 650 mg PO Q4H PRN (Reason: Pain (Scale Score 1-3)) acetaminophen-codeine 300-30 mg tablet 1 tab PO Q4H PRN (Reason: Pain (Scale Score 4-10)) docusate sodium 100 mg Capsule 100 mg PO BID naloxone 4 mg/actuation Collins,Non-Aerosol 4 mg INTRANASAL ONCE PRN (Reason: Opioid Overdose) Referrals Referrals: [facility] [Non-Staff] -
[2022-11-13] MEDS ORDERED: OPTIRAY 320 500ml IV ONE (13:41)
[2022-11-13 13:59] LABS: Basophils # (auto) 0.03 K/uL (0-0.2); Basophils % (auto) 0.5 %; Eosinophils % (auto) 1.8 %; Hematocrit (blood only) 35.3 % (37.0-47.0); Hemoglobin 11.8 g/dl (12.0-16.0); Immature Granulocytes # (auto) 0.04 K/uL (0.01-0.20); Immature Granulocytes % (auto) 0.7 %; Lymphocytes % (auto) 14.4 %; Mean Corpuscular Hemoglobin 28.9 pg (25.0-34.0); Mean Corpuscular Hgb Conc 33.4 g/dL (32.0-36.0); Mean Corpuscular Volume 86.3 fL (80.0-100.0); Mean Platelet Volume 10.6 fL (9.4-12.4); Monocytes # (auto) 0.47 K/uL (0.11-0.59); Monocytes % (auto) 8.5 %; Neutrophils # (auto) 4.11 K/uL (1.40-6.50); Neutrophils % (auto) 74.1 %; Platelet Count 180 K/uL (130-400); RDW Coefficient of Variation 13.9 % (11.5-14.5); RDW Standard Deviation 43.7 fL (36.4-46.3); Red Blood Count 4.09 M/uL (4.20-5.40); White Blood Count 5.55 K/ul (4.8-10.8)
--- NOTE | 2022-11-13 14:04 | CT Scan Report ---
CT angio neck with con, CT angio head w con, CT head/brain wo con CLINICAL HISTORY: neuro deficit, acute stroke suspected TECHNIQUE: Contiguous axial CT images of the head were acquired from the base of the skull to the leticia nino without intravenous contrast administration. CT angiography of the head and neck was performed f ollowing intravenous administration of iodinated contrast. Coronal and sagittal MIPS were obtained fr om the axial data set and were submitted for review. Automated dose lowering techniques and/or adjus tment according to patient size were utilized for this examination. All measurements were calculated based on NASCET criteria. CT DOSE: 1132.94 mGy.cm Comparison: Comparison is made to MRI brain 09/04/2022 FINDINGS: CT head: Areas of decreased attenuation are present in the periventricular and subcortical white kaylah er bilaterally consistent with small vessel ischemic disease. Generalized cerebral atrophy with comme nsurate enlargement of the ventricles, sulci, and cisterns is also present. There is no acute intracr anial hemorrhage or evidence of acute territorial infarction. No shift of the midline structures, mas s effect, or extra-axial abnormalities are shown. Atherosclerotic calcifications are present in the intracranial segments of the internal carotid arteries. Thyromegaly is seen with a prominent heterogeneous right thyroid nodule. CTA Neck: A 3 vessel aortic arch is shown. There is no significant atherosclerotic plaque in the aor tic arch or the origins of the innominate, left common carotid, and left subclavian arteries. The co mmon carotid, external carotid, cervical segments of the internal carotid arteries, and the cervical segments of the vertebral arteries are patent without hemodynamically significant stenosis. The left vertebral artery is dominant. CTA Head: The anterior and posterior cerebral circulations are patent. No hemodynamically significan t stenosis, aneurysm, dissection, or arteriovenous malformation is shown. IMPRESSION: 1. No acute intracranial hemorrhage, evidence of acute territorial infarction, or other acute intrac ranial disease process. 2. No occlusion, hemodynamically significant stenosis, or dissection in the major cervical arteries. 3. No occlusion, hemodynamically significant stenosis, aneurysm, dissection, or arteriovenous malfor mation in the major intracranial arteries. Assessment of stenosis of the internal carotid arteries is based on NASCET criteria. ACT 112: Negative or not required by law. Electronically signed by: Delon Lewis M.D. 11/13/2022 2:02 PM
--- NOTE | 2022-11-13 14:06 | XRay Report ---
XR chest 1V portable CLINICAL HISTORY: neuro deficit, acute stroke suspected TECHNIQUE: Single frontal radiograph of the chest was obtained. Comparison: Comparison is made to chest radiograph 09/04/2022 FINDINGS: No lines and tubes are seen. Cardiomegaly is noted. The lungs are clear. No evidence of pleural effus ion or pneumothorax. IMPRESSION: No acute chest disease. Cardiomegaly is noted. ACT 112: Negative or not required by law. Electronically signed by: Delon Lewis M.D. 11/13/2022 2:04 PM
[2022-11-13 14:09] LABS: INR 1.1 (0.9-1.1); Partial Thromboplastin Ratio 1.1; Partial Thromboplastin Time 31.2 Seconds (21.0-31.0); Prothrombin Time 12.4 Seconds (9.0-12.0)
--- NOTE | 2022-11-13 14:22 | History & Physical Report ---
Date of Service November 13, 2022 Assessment & Plan (1) Stroke-like symptoms: Plan: Acute unstable Patient presented to the ER today with complaints of stroke like symptoms and has a hx of 2 strokes in the past 3 months also with left carotid revascularization 3 months ago on Xarelto, ASA, Plavix and Atorvastatin Dr Garcia spoke with [facility] Dr Lucas who stated patient is not a candidate for tkn since she is already on ASA, Plavix and Xarelto but should be admitted and worked up again. MRI head consult Neurology (patient is known to Dr Gage) (2) Paroxysmal A-fib: Plan: Chronic, unstable Patient is on Xarelto and with recent strokes now also on ASA and Plavix with atorvastatin (3) History of stroke in prior 3 months: Plan: Unstable As above Consult Neuro MRI (4) Diabetes type 2, uncontrolled: Plan: Chronic, stable on Insulin pump at home Last HgbA1C was 7.2 (08/17/22) ISS while in patient (5) Parkinson disease: Plan: Chronic, stable Continue Amantadine 100mg AMHS and Carbidopa-levodopa 2 pills q6H (6) Hyperlipidemia: Plan: chronic stable Continue Atorvastatin 40mg daily Last lipid profile 08/17/22 - C 134, TG 108, HDL 49, LDL 63 (7) GERD (gastroesophageal reflux disease): Plan: Chronic and stable Continue Protonix 40mg History of Present Illness Chief Complaint: stroke like symptoms of slurred speech, facial droop and stumbling Primary Care Provider: Damaris Vega MD Lainey Lainez is a 77 year old female with a past medical history of paroxysymal A Fib on Xarelto who suffered an acute left hemispheric stroke 08/16/22 in the context of a 90% stenosis of the proximal left internal carotid artery for which she subsequently underwent left transcarotid artery revascularization with Dr. Jay on 08/26/22. [facility], from rehab, for further assessment of an acute right hemiparesis and was found to have another small ischemic stroke 09/04/22, slightly different location, but within the left centrum semiovale. Patient was evaluated by Neurology Dr Gage and has been on ASA 81mg , Plavix 75 mg and Xarelto 20mg daily and atorvastatin 40mg. Patient also has a history of Parkinson's Disease, Diabetes on an insulin pump at home, anxiety, GERD and dementia. Patient states she lives alone and this AM upon awakening she felt, very sluggish and went back to sleep. She states that this afternoon she had friends over for lunch and they notified her that she had more than her usual right sided facial droop and she was having trouble speaking. She tells me that she also felt that she was stumbling and was slightly clumsy. She denies any weakness, anesthesias or paresthesias. She denies any chest pain, SOB, cough, fever, nausea, vomiting, vision loss or any other visual problems. She was noted to have some residual right sided facial droop and also some mild right hemiparesis from previous notes. Currently patient states she just feels tired. She feels that her speech is back to her baseline. Patient was evaluated in the ER, CTA head and neck were negative, CXR no acute changes, PTT mildly elevated at 31.2 elevated blood glucose 346 - was given insulin in the ER The ER physician Dr. Garcia spoke with Neurology Dr Lucas who stated patient is not tkn candidate as on NOAC and awoke with symptoms but recommended admission and work up again. Allergies Allergy/AdvReac Type Severity Reaction Status Date / Time benztropine Allergy Unknown PT NOT SURE Verified 11/13/22 15:06 citalopram Allergy Unknown PT NOT SURE Verified 11/13/22 15:06 doxycycline Allergy Unknown REMOTE HX, Verified 11/13/22 15:06 PT NOT SURE REACTION minocycline Allergy Unknown REMOTE HX, Verified 11/13/22 15:06 PT NOT SURE REACTION simvastatin Allergy Unknown PT NOT SURE Verified 11/13/22 15:06 sulindac Allergy Unknown PT NOT SURE Verified 11/13/22 15:06 empagliflozin AdvReac Intermediate Recurrent Verified 11/13/22 15:06 [From Jardiance] Urinary Tract Infection Home Medications Medication Instructions Recorded Confirmed Type lorazepam 0.5 mg tablet 0.5 mg PO BID PRN Anxiety 11/08/19 11/13/22 History rivaroxaban 20 mg tablet (Xarelto) 20 mg PO HS 11/08/19 11/13/22 History carbidopa 25 mg-levodopa 100 mg 2 tab PO Q6H 02/07/20 11/13/22 History tablet flash glucose sensor (FreeStyle #1 ea 09/02/20 10/28/22 History Ruben 2 Sensor kit) gabapentin 300 mg capsule 300 mg PO BID 10/15/21 11/13/22 History amantadine HCl 100 mg capsule 100 mg PO AMHS 01/13/22 11/13/22 History blood sugar diagnostic (OneTouch #10 ea 01/13/22 10/28/22 History Verio test strips) atorvastatin 40 mg tablet 40 mg PO QAM 08/24/22 11/13/22 History clopidogrel 75 mg tablet (Plavix) 75 mg PO DAILY 08/24/22 11/13/22 History fluticasone propionate 50 2 spray intranasal QAM 08/24/22 11/13/22 History mcg/actuation nasal spray,suspension (Flonase Allergy Relief) insulin glargine 100 unit/mL (3 10 unit subcut BID PRN PER PT, 08/24/22 11/13/22 History mL) subcutaneous pen (Lantus ONLY IN THE [facility] U-100 Insulin) insulin regular human 100 unit/mL 0 unit continuous subcutaneous 08/24/22 11/13/22 History injection solution (Humulin R infusion CONTINOUS Regular U-100 Insulin) loratadine 10 mg tablet 10 mg PO DAILY 08/24/22 11/13/22 History magnesium hydroxide 2,400 mg/10 mL 30 ml PO DAILY PRN Constipation 08/24/22 11/13/22 History oral suspension (Milk Of Magnesia Concentrated) pantoprazole 40 mg tablet,delayed 40 mg PO DAILYBB 08/24/22 11/13/22 History release (Protonix) polyethylene glycol 3350 17 17 g PO QDL PRN Constipation 08/24/22 11/13/22 History gram/dose oral powder (Miralax) sennosides 8.6 mg tablet (Senokot) 8.6 mg PO QDL PRN Constipation 08/24/22 11/13/22 History acetaminophen 300 mg-codeine 30 mg 1 tab PO Q4H PRN Pain (Scale Score 09/04/22 11/13/22 History tablet 4-10) acetaminophen 325 mg tablet 650 mg PO Q4H PRN Pain (Scale 09/04/22 11/13/22 History (Tylenol) Score 1-3) docusate sodium 100 mg capsule 100 mg PO BID PRN Constipation 09/04/22 11/13/22 History insulin syringe-needle U-100 1 mL #300 ea 09/28/22 10/28/22 Rx 31 gauge x 5/16" (BD Insulin Syringe Ultra-Fine) Metamucil Gummies 2 tab PO HS 11/13/22 11/13/22 History amoxicillin 500 mg tablet 2,000 mg PO DIRECTED PRN PRIOR 11/13/22 11/13/22 History TO DENTAL APPOINTMENTS cyclosporine 0.05 % eye drops in a 1 drp ophthalmic (eye) DIRECTED 11/13/22 11/13/22 History dropperette fluoxetine 20 mg capsule 20 mg PO DAILY #30 caps 11/14/22 Rx Past Med/Surg History Medical History (Updated 11/16/22 @ 00:05 by Background Daemon) Acoustic neuroma FOLLOWS DR MITCHELL - UPCOMING RADIATION TREATMENT AFTER CATARACT SURGERY Anxiety Chronic heart failure Complicated migraine "COMPLICATED MIGRAINES" - OCCUR OFTEN AND RESEMBLE SYMPTOMS OF A STROKE PER PT Diabetes INSULIN PUMP DVT prophylaxis GERD (gastroesophageal reflux disease) HX H/O head and neck radiation History of colon polyps History of high cholesterol History of TIA (transient ischemic attack) 2004 ,HX PT FOR, NO REMAINING RESIDUAL EFFECTS Hypertension HX BLOOD PRESSURE MEDICINE, ONCE A FIB DX - MED WAS D/C'D - PT REPORTS BLOOD PRESSURE USUALLY RUNS LOW AROUND 106/58 Mitral valve disorder DENIES Obesity Parkinson disease Permanent atrial fibrillation DX 2 YR AGO, NO HX CARDIOVERSION Stroke 08/16/22 treated at [facility]. still experiencing mild slurred speech at times, using a wheelchair, unable to ambulate at this time since her stroke. able to stand and pivot with assistance. Symptomatic stenosis of left carotid artery Surgical History H/O breast biopsy 10/26/17 LMA#4. 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 S/P appendectomy HX S/P cholecystectomy HX Status post carotid surgery Family History Mother Diabetes Congestive heart failure Colorectal cancer Hypertension Brother Congestive heart failure Colorectal cancer Sister Cancer Unknown Pancreatic cancer Son Family history of colonic polyps Social History Smoking Status: Never smoker Second Hand Exposure: No; Do You Dip or Chew Tobacco: No; Hx Alcohol Use: No Hx Substance Use: No Preferred Language: Greenlandic Communication Ability: Effective Visual Impairment: No Limitations Ships Or Barges Loader Required: No Beliefs That Will Affect Care: None marital status: Unknown Current Living Situation: Personal Care Facility Current Living Situation Comment: from [facility] How many Children do You have: 2 Feels Safe at Home: Yes Assistive Devices: Cane and Walker Review of Systems Constitutional: + fatigue and + weakness; no fever, no chills and no sweats Eyes: no blind spots, no diplopia, no photophobia and no problem reported Ear, Nose, Mouth, Throat: no hearing loss, no dizziness, no nasal congestion, no post nasal drip and no dysphagia Respiratory: no cough, no chest congestion and no dyspnea Cardiovascular: no chest pain, no dyspnea, no syncope, no edema and no calf pain Gastrointestinal: + abdominal pain; no early satiety, no nausea, no vomiting, no dysphagia and no change in bowel habits patient states she always has stomach upset and this is not new for her Genitourinary: no dysuria, no urinary frequency, no urinary hesitancy and no urinary urgency Integumentary: no rash, no lesions and no new lesions Neurologic: + gait abnormality, + unsteadiness, + generalized weakness and + abnormal speech; no falls, no seizure-like activity, no syncope, no headache(s) and no confusion Psychiatric: no hopelessness, no suicidal ideation, no confusion, no auditory hallucinations and no visual hallucinations Physical Exam Constitutional: well developed, well nourished, cooperative and + lethargic Eyes: PERRL Patient had a hard time opening her eyes but was able to do so Neck: trachea midline, no thyromegaly healed scar left neck Respiratory: normal respiratory effort, lungs clear to auscultation Cardiovascular: Rate/Rhythm: + irregularly irregular Heart Sounds: normal S1 and normal S2; no murmur Extremities: normal capillary refill; no calf tenderness and no edema Gastrointestinal (Abdomen): normal bowel sounds, soft, nontender, no hepatosplenomegaly Skin: no rashes, warm and dry Psychiatric: A+Ox3, euthymic affect Eye Contact: + fair eye contact Speech: + pressured speech mostly talking with eyes closed, states its hard to keep them open but is able to do so mild weakness to dot compliance specialist strength right hand , moves all 4 extremities normally, intact finger to nose and heel down albright Results & Data Results & Data Vital Signs (Past 12 Hours) Vital Signs Temp Pulse Resp BP Pulse Ox O2 Del Method 11/13/22 14:15 78 11/13/22 13:20 36.5 C 74 16 157/77 H 97 Room Air Laboratory Results Abnormal lab results 11/13/22 11/13/22 11/13/22 Range/Units 13:49 13:49 13:49 RBC 4.09 L (4.20-5.40) M/uL Hgb 11.8 L (12.0-16.0) g/dl Hct 35.3 L (37.0-47.0) % Lymph # (Auto) 0.80 L (1.2-3.4) K/uL PT 12.4 H (9.0-12.0) Seconds APTT 31.2 H (21.0-31.0) Seconds Sodium 135 L (136-145) mmol/L BUN 26 H (6-23) mg/dl BUN/Creatinine Ratio 34.7 H (10-20) Glucose 376 H* (70-99(Fasting)) mg/dl POC Glucose (70-99) mg/dl Calcium 8.4 L (8.6-10.3) mg/dl AST 10 L (13-39) U/L ALT < 3 L (7-52) U/L Total Protein 5.8 L (6.0-8.3) gm/dl Globulin 2.3 L (2.5-4.0) gm/dl 11/13/22 Range/Units 14:41 RBC (4.20-5.40) M/uL Hgb (12.0-16.0) g/dl Hct (37.0-47.0) % Lymph # (Auto) (1.2-3.4) K/uL PT (9.0-12.0) Seconds APTT (21.0-31.0) Seconds Sodium (136-145) mmol/L BUN (6-23) mg/dl BUN/Creatinine Ratio (10-20) Glucose (70-99(Fasting)) mg/dl POC Glucose 346 H* (70-99) mg/dl Calcium (8.6-10.3) mg/dl AST (13-39) U/L ALT (7-52) U/L Total Protein (6.0-8.3) gm/dl Globulin (2.5-4.0) gm/dl Diagnostic Findings Chest X-Ray 11/13/22 13:23 XR chest 1V portable CLINICAL HISTORY: neuro deficit, acute stroke suspected TECHNIQUE: Single frontal radiograph of the chest was obtained. Comparison: Comparison is made to chest radiograph 09/04/2022 FINDINGS: No lines and tubes are seen. Cardiomegaly is noted. The lungs are clear. No evidence of pleural effusion or pneumothorax. IMPRESSION: No acute chest disease. Cardiomegaly is noted. ACT 112: Negative or not required by law. Electronically signed by: Delon Lewis M.D. 11/13/2022 2:[address] 11/13/22 13:23 CT angio neck with con, CT angio head w con, CT head/brain wo con CLINICAL HISTORY: neuro deficit, acute stroke suspected TECHNIQUE: Contiguous axial CT images of the head were acquired from the base of the skull to the vertex without intravenous contrast administration. CT angiography of the head and neck was performed following intravenous administration of iodinated contrast. Coronal and sagittal MIPS were obtained from the axial data set and were submitted for review. Automated dose lowering techniques and/or adjustment according to patient size were utilized for this examination. All measurements were calculated based on NASCET criteria. CT DOSE: 1132.94 mGy.cm Comparison: Comparison is made to MRI brain 09/04/2022 FINDINGS: CT head: Areas of decreased attenuation are present in the periventricular and subcortical white matter bilaterally consistent with small vessel ischemic disease. Generalized cerebral atrophy with commensurate enlargement of the ventricles, sulci, and cisterns is also present. There is no acute intracranial hemorrhage or evidence of acute territorial infarction. No shift of the midline structures, mass effect, or extra-axial abnormalities are shown. Atherosclerotic calcifications are present in the intracranial segments of the internal carotid arteries. Thyromegaly is seen with a prominent heterogeneous right thyroid nodule. CTA Neck: A 3 vessel aortic arch is shown. There is no significant atherosclerotic plaque in the aortic arch or the origins of the innominate, left common carotid, and left subclavian arteries. The common carotid, external carotid, cervical segments of the internal carotid arteries, and the cervical segments of the vertebral arteries are patent without hemodynamically significant stenosis. The left vertebral artery is dominant. CTA Head: The anterior and posterior cerebral circulations are patent. No hemodynamically significant stenosis, aneurysm, dissection, or arteriovenous malformation is shown. IMPRESSION: 1. No acute intracranial hemorrhage, evidence of acute territorial infarction, or other acute intracranial disease process. 2. No occlusion, hemodynamically significant stenosis, or dissection in the major cervical arteries. 3. No occlusion, hemodynamically significant stenosis, aneurysm, dissection, or arteriovenous malformation in the major intracranial arteries. Assessment of stenosis of the internal carotid arteries is based on NASCET criteria. ACT 112: Negative or not required by law. Electronically signed by: Delon Lewis M.D. 11/13/2022 2:02 PM Head CTA 11/13/22 13:23 CT angio neck with con, CT angio head w con, CT head/brain wo con CLINICAL HISTORY: neuro deficit, acute stroke suspected TECHNIQUE: Contiguous axial CT images of the head were acquired from the base of the skull to the vertex without intravenous contrast administration. CT angiography of the head and neck was performed following intravenous administration of iodinated contrast. Coronal and sagittal MIPS were obtained from the axial data set and were submitted for review. Automated dose lowering techniques and/or adjustment according to patient size were utilized for this examination. All measurements were calculated based on NASCET criteria. CT DOSE: 1132.94 mGy.cm Comparison: Comparison is made to MRI brain 09/04/2022 FINDINGS: CT head: Areas of decreased attenuation are present in the periventricular and subcortical white matter bilaterally consistent with small vessel ischemic disease. Generalized cerebral atrophy with commensurate enlargement of the ventricles, sulci, and cisterns is also present. There is no acute intracranial hemorrhage or evidence of acute territorial infarction. No shift of the midline structures, mass effect, or extra-axial abnormalities are shown. Atherosclerotic calcifications are present in the intracranial segments of the internal carotid arteries. Thyromegaly is seen with a prominent heterogeneous right thyroid nodule. CTA Neck: A 3 vessel aortic arch is shown. There is no significant atherosclerotic plaque in the aortic arch or the origins of the innominate, left common carotid, and left subclavian arteries. The common carotid, external carotid, cervical segments of the internal carotid arteries, and the cervical segments of the vertebral arteries are patent without hemodynamically significant stenosis. The left vertebral artery is dominant. CTA Head: The anterior and posterior cerebral circulations are patent. No hemodynamically significant stenosis, aneurysm, dissection, or arteriovenous malformation is shown. IMPRESSION: 1. No acute intracranial hemorrhage, evidence of acute territorial infarction, or other acute intracranial disease process. 2. No occlusion, hemodynamically significant stenosis, or dissection in the major cervical arteries. 3. No occlusion, hemodynamically significant stenosis, aneurysm, dissection, or arteriovenous malformation in the major intracranial arteries. Assessment of stenosis of the internal carotid arteries is based on NASCET criteria. ACT 112: Negative or not required by law. Electronically signed by: Delon Lewis M.D. 11/13/2022 2:02 PM Neck CTA 11/13/22 13:23 CT angio neck with con, CT angio head w con, CT head/brain wo con CLINICAL HISTORY: neuro deficit, acute stroke suspected TECHNIQUE: Contiguous axial CT images of the head were acquired from the base of the skull to the vertex without intravenous contrast administration. CT angiography of the head and neck was performed following intravenous administration of iodinated contrast. Coronal and sagittal MIPS were obtained from the axial data set and were submitted for review. Automated dose lowering techniques and/or adjustment according to patient size were utilized for this examination. All measurements were calculated based on NASCET criteria. CT DOSE: 1132.94 mGy.cm Comparison: Comparison is made to MRI brain 09/04/2022 FINDINGS: CT head: Areas of decreased attenuation are present in the periventricular and subcortical white matter bilaterally consistent with small vessel ischemic disease. Generalized cerebral atrophy with commensurate enlargement of the ventricles, sulci, and cisterns is also present. There is no acute intracranial hemorrhage or evidence of acute territorial infarction. No shift of the midline structures, mass effect, or extra-axial abnormalities are shown. Atherosclerotic calcifications are present in the intracranial segments of the internal carotid arteries. Thyromegaly is seen with a prominent heterogeneous right thyroid nodule. CTA Neck: A 3 vessel aortic arch is shown. There is no significant atherosclerotic plaque in the aortic arch or the origins of the innominate, left common carotid, and left subclavian arteries. The common carotid, external carotid, cervical segments of the internal carotid arteries, and the cervical segments of the vertebral arteries are patent without hemodynamically significant stenosis. The left vertebral artery is dominant. CTA Head: The anterior and posterior cerebral circulations are patent. No hemodynamically significant stenosis, aneurysm, dissection, or arteriovenous malformation is shown. IMPRESSION: 1. No acute intracranial hemorrhage, evidence of acute territorial infarction, or other acute intracranial disease process. 2. No occlusion, hemodynamically significant stenosis, or dissection in the major cervical arteries. 3. No occlusion, hemodynamically significant stenosis, aneurysm, dissection, or arteriovenous malformation in the major intracranial arteries. Assessment of stenosis of the internal carotid arteries is based on NASCET criteria. ACT 112: Negative or not required by law. Electronically signed by: Delon Lewis M.D. 11/13/2022 2:02 PM Supervising Physician Co-Signing Physician Notes I personally saw and examined the patient. I verified all valencia points and agree with Nieves Gracia PA-C with the following exceptions and/or additions: 77 year old female with prior stroke presents to the ER with worsening right sided facial droop O/E right sided facial droop, left > right sided tremor, HS RRR A/P Stroke-like symptoms - recrudesce Abdominal pain and diarrhea - CT A/P with mild colitis PG Care Time/CCT Total # of Minutes Spent Total Time Spent with Patient: Total time spent is greater than 50% in coordination of care (as documented) at patient's floor/unit and/or counseling patient: Coding Level of Care Code 80913 INT INP/OBS CARE 1/40MIN Diagnoses Stroke-like symptoms R29.90 Paroxysmal A-fib I48.0 History of stroke in prior 3 months Z86.73 Diabetes type 2, uncontrolled E11.65 Parkinson disease G20 Hyperlipidemia E78.5 GERD (gastroesophageal reflux disease) K21.9
[2022-11-13 14:26] LABS: Alanine Aminotransferase < 3 U/L (7-52); Albumin Globulin Ratio 1.5 (0.9-2); Albumin Level 3.5 gm/dl (3.4-5.0); Alkaline Phosphatase 85 U/L (34-104); Anion Gap 8 (3-11); Aspartate Aminotransferase 10 U/L (13-39); BUN Creatinine Ratio 34.7 (10-20); Bilirubin,Total 0.8 mg/dl (0.2-1.0); Blood Urea Nitrogen 26 mg/dl (6-23); Calcium 8.4 mg/dl (8.6-10.3); Carbon Dioxide 23 mmol/L (21-32); Chloride 104 mmol/L (98-107); Est GFR (African American) 89.7 ml/min; Est GFR (Non-African American) 77.4 ml/min; Globulin 2.3 gm/dl (2.5-4.0); Glucose 376 mg/dl (70-99(Fasting)); Potassium 3.8 mmol/L (3.5-5.1); Sodium 135 mmol/L (136-145); Total Protein 5.8 gm/dl (6.0-8.3)
[2022-11-13] MEDS ORDERED: SODIUM CHLORIDE 0.9% 500 ML IV ONE (14:26)
[2022-11-13] MEDS ORDERED: NovoLIN-R INSULIN PER UNIT CHARGE IV STA (14:27)
--- NOTE | 2022-11-13 15:04 | Electrocardiogram Report ---
Test Reason : Blood Pressure : / mmHG Vent. Rate : 076 BPM Atrial Rate : 000 BPM P-R Int : 000 ms QRS Dur : 092 ms QT Int : 348 ms P-R-T Axes : 000 -44 090 degrees QTc Int : 391 ms Atrial fibrillation Left axis deviation Nonspecific T wave abnormality Abnormal ECG When compared with ECG of 04-SEP-2022 16:00, Nonspecific T wave abnormality no longer evident in Inferior leads Nonspecific T wave abnormality no longer evident in Anterior leads Nonspecific T wave abnormality now evident in Lateral leads Confirmed by Aleksandr Carrera ([id number]) on 11/13/2022 3:03:58 PM Referred By: REFERRED SELF Confirmed By:Aleksandr Carrera
--- NOTE | 2022-11-13 17:25 | Magnetic Resonance Report ---
MR brain wo con CLINICAL HISTORY: stroke like sxs TECHNIQUE: Multiplanar and multisequence MR images of the brain were obtained without intravenous con trast. Comparison: Comparison is made to MRI brain 09/04/2022 FINDINGS: No abnormal restricted diffusion is identified. Foci of T2 and FLAIR hyperintensity are noted in the paraventricular areas consistent with chronic small vessel ischemic disease. Ex vacuo ventriculomegal y and sulcal enlargement is noted compatible with diffuse volume loss. Old lacunar infarcts are seen most prominently in the left centrum semiovale. No mass is seen. There is no mass effect or midline s hift. There is no evidence of acute intraparenchymal hemorrhage. No extra axial fluid collections are seen. The corpus callosum, pituitary gland, and cerebellar tonsils appear grossly unremarkable. Flow voids of the major intracranial arterial vessels are identified. The imaged portions of the para nasal sinuses, mastoid air cells, and orbits are unremarkable. IMPRESSION: No acute abnormality and in particular no evidence of acute infarct. ACT 112: Negative or not required by law. Electronically signed by: Delon Lewis M.D. 11/13/2022 5:22 PM
[2022-11-13 17:57] LABS: Appearance Urine Clear (Clear); Bacteria Urine Automated Negative (Negative); Bilirubin Urine Negative (Negative); Blood Urine Trace (Negative); Color Urine Yellow; Epithelial Cell Urine Auto >30 /lpf (0-5); Glucose Urine UA 3+ (Negative); Ketones Urine Negative (Negative); Leukocyte Esterase Urine Negative (Negative); Nitrite Urine Negative (Negative); Protein Urine Negative (Negative); RBC Urine Automated 0-4 /hpf (0-4); Specific Gravity Urine > 1.045 (1.000-1.030); Urobilinogen Urine Negative (Negative)
[2022-11-13] MEDS ORDERED: LORazepam 0.5 MG TAB PO PRN (18:43)
[2022-11-13] MEDS ORDERED: DEXTROSE 50% 50 ML SYRINGE IV PRN (18:43)
[2022-11-13] MEDS ORDERED: POLYETHYLENE (MIRALAX) 17 GM PACK PO PRN (18:43)
[2022-11-13] MEDS ORDERED: GLUCOSE 40% GEL 15 GM TUBE PO PRN (18:43)
[2022-11-13] MEDS ORDERED: PHARMACY GLYCEMIC MGMT CONSULT PRN (18:43)
[2022-11-13] MEDS ORDERED: GLUCAGON FOR INJ 1 MG VIAL SQ PRN (18:43)
[2022-11-13] MEDS ORDERED: GLUCOSE 10 TAB/TUBE PO PRN (18:43)
[2022-11-13] MEDS ORDERED: ACETAMINOPHEN 325 MG TAB PO PRN (18:43)
[2022-11-13] MEDS ORDERED: DOCUSATE SODIUM 100 MG CAP PO PRN (18:43)
[2022-11-13] MEDS ORDERED: CARBOHYDRATES FOR HYPOGLYCEMIA PO PRN (18:43)
[2022-11-13] MEDS ORDERED: RIVAROXABAN 20 MG TAB PO SCH (21:00)
[2022-11-13] MEDS ORDERED: OPTIRAY 320 100ml IV ONE (21:01)
[2022-11-13] MEDS: AMANTADINE HCL 100 MG CAPSULE PO SCH (21:36)
[2022-11-13] MEDS: CARBIDOPA/LEVODOPA 25/100MG TAB PO SCH (21:36)
[2022-11-13] MEDS: GABAPENTIN 300 MG CAP PO SCH (21:36)
[2022-11-13] MEDS: INSULIN ASPART PER UNIT CHARGE SC SCH (21:43)
--- NOTE | 2022-11-13 21:43 | CT Scan Report ---
Exam(s): CT ABDOMEN + PELVIS With Contrast EXAM: CT Abdomen and Pelvis With Intravenous Contrast CLINICAL HISTORY: Reason for exam: generalized abdo pain, diarrhea. TECHNIQUE: Axial computed tomography images of the abdomen and pelvis with intravenous contrast. CTDI is 26.35 mGy and DLP is 1412.04 mGy-cm. Automated exposure control was utilized for the study. A dose lowering technique was utilized adhering to the principles of ALARA. CONTRAST: Contrast must be dictated COMPARISON: No relevant prior studies available. FINDINGS: Lung bases: Unremarkable. No mass. No consolidation. ABDOMEN: Liver: Unremarkable. No focal hepatic lesion. Atrophy of the pancreas. Gallbladder and bile ducts: Cholecystectomy. Pancreas: See above. Spleen: Unremarkable. No splenomegaly. Adrenals: Unremarkable. No mass. Kidneys and ureters: Unremarkable. No hydronephrosis or delayed nephrogram. Stomach and bowel: Mild circumferential wall thickening of the descending and sigmoid colon, correlate for mild colitis. No obstruction. PELVIS: Appendix: No findings to suggest acute appendicitis. Bladder: Unremarkable. Normal urinary bladder. Reproductive: Unremarkable as visualized. Normal CT. The uterus. ABDOMEN and PELVIS: Intraperitoneal space: Unremarkable. No free air. No fluid collection or abscess. Bones/joints: Degenerative changes of the spine. No acute fracture. No dislocation. Soft tissues: Unremarkable. Vasculature: Atherosclerotic changes of the aorta. No abdominal aortic aneurysm. Lymph nodes: Unremarkable. No enlarged lymph nodes. IMPRESSION: Mild circumferential wall thickening of the descending and sigmoid colon, correlate for mild colitis. Electronically signed by: Maurice Muller MD 11/13/22 21:41 PM
[2022-11-13] MEDS: LANTUS PER UNIT CHARGE SQ SCH (21:46)
[2022-11-14] MEDS: INSULIN ASPART PER UNIT CHARGE SC SCH ×4 (00:45→13:06)
[2022-11-14] MEDS ORDERED: PANTOprazole 40 MG TAB PO SCH (06:30)
[2022-11-14] MEDS: CARBIDOPA/LEVODOPA 25/100MG TAB PO SCH ×2 (06:30→11:23)
[2022-11-14 08:09] LABS: Anion Gap 5 (3-11); BUN Creatinine Ratio 29.3 (10-20); Blood Urea Nitrogen 17 mg/dl (6-23); Calcium 8.8 mg/dl (8.6-10.3); Carbon Dioxide 29 mmol/L (21-32); Chloride 107 mmol/L (98-107); Creatinine Clr Calc Pharmacy 87.1 ml/min; Est GFR (African American) 103.8 ml/min; Est GFR (Non-African American) 89.5 ml/min; Glucose 139 mg/dl (70-99(Fasting)); Potassium 3.7 mmol/L (3.5-5.1); Sodium 141 mmol/L (136-145)
[2022-11-14 08:20] LABS: Alanine Aminotransferase < 3 U/L (7-52); Albumin Globulin Ratio 1.5 (0.9-2); Albumin Level 3.6 gm/dl (3.4-5.0); Alkaline Phosphatase 83 U/L (34-104); Aspartate Aminotransferase 12 U/L (13-39); Globulin 2.4 gm/dl (2.5-4.0)
[2022-11-14 08:54] LABS: Hematocrit (blood only) 37.5 % (37.0-47.0); Hemoglobin 12.5 g/dl (12.0-16.0); Mean Corpuscular Hemoglobin 29.2 pg (25.0-34.0); Mean Corpuscular Hgb Conc 33.3 g/dL (32.0-36.0); Mean Corpuscular Volume 87.6 fL (80.0-100.0); Mean Platelet Volume 10.8 fL (9.4-12.4); Platelet Count 209 K/uL (130-400); RDW Standard Deviation 44.6 fL (36.4-46.3); Red Blood Count 4.28 M/uL (4.20-5.40); White Blood Count 6.16 K/ul (4.8-10.8)
[2022-11-14] MEDS ORDERED: ATORVASTATIN 40 MG TAB PO SCH (09:00)
[2022-11-14] MEDS ORDERED: ASPIRIN 81 MG ECTAB PO SCH (09:00)
[2022-11-14] MEDS ORDERED: CLOPIDOGREL BISULFATE 75 MG TAB PO SCH (09:00)
[2022-11-14] MEDS ORDERED: LORATADINE 10 MG TAB PO SCH (09:00)
[2022-11-14] MEDS ORDERED: FLUTICASONE PROPIONATE NA SPR 16 GM BTL SCH (09:00)
[2022-11-14] MEDS: LANTUS PER UNIT CHARGE SQ SCH (09:29)
--- NOTE | 2022-11-14 09:31 | Neurology Consultation ---
Date of Consultation November 14, 2022 Assessment & Plan (1) History of stroke in prior 3 months: With a negative MRI and recurrence of her prior stroke symptoms this is recrudescence rather than TIA. Suspect secondary to depression which is common post-stroke. Patient has multiple additional risk factors for depression including living alone. PHQ-9 score places patient in the moderate-severe range and recommend she be started on an SSRI. Suggest fluoxetine 20mg daily to start but she should be referred to psychiatry as an outpatient if it does not improve. Otherwise recommend that triple therapy be revisited as there is no evidence based support for DAPT+NOAC and it places the patient at increased risk for bleeding. Suggest stopping aspirin. -- Start fluoxetine 20mg daily -- Consider stopping aspirin -- Psych referral if depression persists beyond 6 weeks -- Follow-up plan as previously arranged, please contact us with any further questions Telehealth Consultation Telehealth Information Telehealth Information: I performed this visit using a real-time telehealth connection between my location and the patients location ([facility]). After connecting through interactive tele-video, patient was identified by name and date of and/or wristband check.Patient (or authorized healthcare sales representative meats) was informed that this was a telemedicine visit and it was being conducted confidentially over secure lines. My office door was closed and no one else was present in the room with me.Patient (or authorized healthcare sales representative meats) provided consent to proceed with the visit, expressed an understanding of privacy and security of the telemedicine visit, and gave permission to have a hospital sales representative meats in the room in order to assist with the visit and to conduct portions of the visit, as needed. I informed the patient (or authorized healthcare sales representative meats) that I reviewed their record and presented the opportunity for them to ask any questions regarding the visit today. The patient agreed to participate. History of Present Illness Reason for Consultation: Transient weakness Requesting Physician: Dr. Rasmussen Attending Physician: Myriam Rasmussen MD History of Present Illness Lainey Lainez is a 77 yo F presenting with another episode of transient R sided weakness and speech changes. She first presented in August, had a small L cortical stroke secondary to RANJIT, underwent successful revascularization and re- presented in September with a new small stroke in the L hemisphere in a different area. Since then she was doing well but lives alone and reports that her mood is often down. She has not been eating well due to lack of appetite and overall feels a lack of energy. She otherwise denies any recent acute illness. She was admitted yesterday with these transient symptoms out of concern for another stroke despite triple therapy with aspirin, plavix and xarelto. Allergies Allergy/AdvReac Type Severity Reaction Status Date / Time benztropine Allergy Unknown PT NOT SURE Verified 11/13/22 15:06 citalopram Allergy Unknown PT NOT SURE Verified 11/13/22 15:06 doxycycline Allergy Unknown REMOTE HX, Verified 11/13/22 15:06 PT NOT SURE REACTION minocycline Allergy Unknown REMOTE HX, Verified 11/13/22 15:06 PT NOT SURE REACTION simvastatin Allergy Unknown PT NOT SURE Verified 11/13/22 15:06 sulindac Allergy Unknown PT NOT SURE Verified 11/13/22 15:06 empagliflozin AdvReac Intermediate Recurrent Verified 11/13/22 15:06 [facility] Urinary Tract Infection Home Medications Medication Instructions Recorded Confirmed Type aspirin 81 mg tablet,delayed 81 mg PO QAM 01/19/19 11/13/22 History release (Yariel Low Dose Aspirin) lorazepam 0.5 mg tablet 0.5 mg PO BID PRN Anxiety 11/08/19 11/13/22 History rivaroxaban 20 mg tablet (Xarelto) 20 mg PO HS 11/08/19 11/13/22 History carbidopa 25 mg-levodopa 100 mg 2 tab PO Q6H 02/07/20 11/13/22 History tablet flash glucose sensor (FreeStyle #1 ea 09/02/20 10/28/22 History Ruben 2 Sensor kit) gabapentin 300 mg capsule 300 mg PO BID 10/15/21 11/13/22 History amantadine HCl 100 mg capsule 100 mg PO AMHS 01/13/22 11/13/22 History blood sugar diagnostic (OneTouch #10 ea 01/13/22 10/28/22 History Verio test strips) atorvastatin 40 mg tablet 40 mg PO QAM 08/24/22 11/13/22 History clopidogrel 75 mg tablet (Plavix) 75 mg PO DAILY 08/24/22 11/13/22 History fluticasone propionate 50 2 spray intranasal QAM 08/24/22 11/13/22 History mcg/actuation nasal spray,suspension (Flonase Allergy Relief) insulin glargine 100 unit/mL (3 10 unit subcut BID PRN PER PT, 08/24/22 11/13/22 History mL) subcutaneous pen (Lantus ONLY IN THE HOSPITAL [facility] U-100 Insulin) insulin regular human 100 unit/mL 0 unit continuous subcutaneous 08/24/22 11/13/22 History injection solution (Humulin R infusion CONTINOUS Regular U-100 Insulin) loratadine 10 mg tablet 10 mg PO DAILY 08/24/22 11/13/22 History magnesium hydroxide 2,400 mg/10 mL 30 ml PO DAILY PRN Constipation 08/24/22 11/13/22 History oral suspension (Milk Of Magnesia Concentrated) pantoprazole 40 mg tablet,delayed 40 mg PO DAILYBB 08/24/22 11/13/22 History release (Protonix) polyethylene glycol 3350 17 17 g PO QDL PRN Constipation 08/24/22 11/13/22 History gram/dose oral powder (Miralax) sennosides 8.6 mg tablet (Senokot) 8.6 mg PO QDL PRN Constipation 08/24/22 11/13/22 History acetaminophen 300 mg-codeine 30 mg 1 tab PO Q4H PRN Pain (Scale Score 09/04/22 11/13/22 History tablet 4-10) acetaminophen 325 mg tablet 650 mg PO Q4H PRN Pain (Scale 09/04/22 11/13/22 History (Tylenol) Score 1-3) docusate sodium 100 mg capsule 100 mg PO BID PRN Constipation 09/04/22 11/13/22 History insulin syringe-needle U-100 1 mL #300 ea 09/28/22 10/28/22 Rx 31 gauge x 5/16" (BD Insulin Syringe Ultra-Fine) Metamucil Gummies 2 tab PO HS 11/13/22 11/13/22 History amoxicillin 500 mg tablet 2,000 mg PO DIRECTED PRN PRIOR 11/13/22 11/13/22 History TO DENTAL APPOINTMENTS cyclosporine 0.05 % eye drops in a 1 drp ophthalmic (eye) DIRECTED 11/13/22 11/13/22 History dropperette Patient History Medical History (Updated 11/14/22 @ 00:07 by Background [place]) Acoustic neuroma FOLLOWS DR MITCHELL - UPCOMING RADIATION TREATMENT AFTER CATARACT SURGERY Anxiety Chronic heart failure Complicated migraine "COMPLICATED MIGRAINES" - OCCUR OFTEN AND RESEMBLE SYMPTOMS OF A STROKE PER PT Diabetes INSULIN PUMP DVT prophylaxis GERD (gastroesophageal reflux disease) HX H/O head and neck radiation History of colon polyps History of high cholesterol History of TIA (transient ischemic attack) 2004 ,HX PT FOR, NO REMAINING RESIDUAL EFFECTS Hypertension HX BLOOD PRESSURE MEDICINE, ONCE A FIB DX - MED WAS D/C'D - PT REPORTS BLOOD PRESSURE USUALLY RUNS LOW AROUND 106/58 Mitral valve disorder DENIES Obesity Parkinson disease Permanent atrial fibrillation DX 2 YR AGO, NO HX CARDIOVERSION Stroke 08/16/22 treated at [facility]. still experiencing mild slurred speech at times, using a wheelchair, unable to ambulate at this time since her stroke. able to stand and pivot with assistance. Symptomatic stenosis of left carotid artery Surgical History H/O breast biopsy 10/26/17 LMA#4. 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 Oriented to person, place, and time. Fluent. Comprehension intact. Affect depressed, PHQ9-15 Cranial Nerves: III/IV/: Versions intact without nystagmus, no gaze preference. VII: Facial expression symmetric VIII: Hearing intact to voice IX/X: Palate elevates symmetrically XI: Shoulder shrug symmetric XII: Tongue midline Motor: Strength was symmetric and antigravity throughout. Pronator drift was absent. There were no abnormal movements. Results & Data Vital Signs (Past 12 Hours) Vital Signs Temp Pulse Pulse Resp BP Pulse Ox O2 Del Method 11/14/22 07:30 36.8 C 63 18 109/66 93 Room Air 11/14/22 07:17 70 11/14/22 02:50 36.7 C 64 15 112/67 95 Room Air 11/13/22 22:59 36.7 C 79 16 142/71 H 97 Room Air Laboratory Results Abnormal lab results 11/13/22 11/13/22 11/13/22 Range/Units 13:49 13:49 13:49 RBC 4.09 L (4.20-5.40) M/uL Hgb 11.8 L (12.0-16.0) g/dl Hct 35.3 L (37.0-47.0) % Lymph # (Auto) 0.80 L (1.2-3.4) K/uL PT 12.4 H (9.0-12.0) Seconds APTT 31.2 H (21.0-31.0) Seconds Sodium 135 L (136-145) mmol/L BUN 26 H (6-23) mg/dl Creatinine (0.6-1.2) mg/dl BUN/Creatinine Ratio 34.7 H (10-20) Glucose 376 H* (70-99(Fasting)) mg/dl POC Glucose (70-99) mg/dl Calcium 8.4 L (8.6-10.3) mg/dl AST 10 L (13-39) U/L ALT < 3 L (7-52) U/L Total Protein 5.8 L (6.0-8.3) gm/dl Globulin 2.3 L (2.5-4.0) gm/dl Ur Specific [place] (1.000-1.030) Urine Glucose (UA) (Negative) Urine Blood (Negative) Urine WBC (Auto) (0-5) /hpf U Epithel Cells (Auto) (0-5) /lpf Urine Yeast (None Prsent) 0511/13/22 11/13/22 Range/Units 14:41 16:08 17:29 RBC (4.20-5.40) M/uL Hgb (12.0-16.0) g/dl Hct (37.0-47.0) % Lymph # (Auto) (1.2-3.4) K/uL PT (9.0-12.0) Seconds APTT (21.0-31.0) Seconds Sodium (136-145) mmol/L BUN (6-23) mg/dl Creatinine (0.6-1.2) mg/dl BUN/Creatinine Ratio (10-20) Glucose (70-99(Fasting)) mg/dl POC Glucose 346 H* 221 H (70-99) mg/dl Calcium (8.6-10.3) mg/dl AST (13-39) U/L ALT (7-52) U/L Total Protein (6.0-8.3) gm/dl Globulin (2.5-4.0) gm/dl Ur Specific [place] > 1.045 H (1.000-1.030) Urine Glucose (UA) 3+ H (Negative) Urine Blood Trace H (Negative) Urine WBC (Auto) 10-30 H (0-5) /hpf U Epithel Cells (Auto) >30 H (0-5) /lpf Urine Yeast Budding A (None Prsent) 11/13/22 11/13/22 11/14/22 Range/Units 18:52 21:25 00:26 RBC (4.20-5.40) M/uL Hgb (12.0-16.0) g/dl Hct (37.0-47.0) % Lymph # (Auto) (1.2-3.4) K/uL PT (9.0-12.0) Seconds APTT (21.0-31.0) Seconds Sodium (136-145) mmol/L BUN (6-23) mg/dl Creatinine (0.6-1.2) mg/dl BUN/Creatinine Ratio (10-20) Glucose (70-99(Fasting)) mg/dl POC Glucose 255 H 249 H 142 H (70-99) mg/dl Calcium (8.6-10.3) mg/dl AST (13-39) U/L ALT (7-52) U/L Total Protein (6.0-8.3) gm/dl Globulin (2.5-4.0) gm/dl Ur Specific [place] (1.000-1.030) Urine Glucose (UA) (Negative) Urine Blood (Negative) Urine WBC (Auto) (0-5) /hpf U Epithel Cells (Auto) (0-5) /lpf Urine Yeast (None Prsent) 11/14/22 11/14/22 11/14/22 Range/Units 04:54 07:02 07:26 RBC (4.20-5.40) M/uL Hgb (12.0-16.0) g/dl Hct (37.0-47.0) % Lymph # (Auto) (1.2-3.4) K/uL PT (9.0-12.0) Seconds APTT (21.0-31.0) Seconds Sodium (136-145) mmol/L BUN (6-23) mg/dl Creatinine 0.58 L (0.6-1.2) mg/dl BUN/Creatinine Ratio 29.3 H (10-20) Glucose 139 H (70-99(Fasting)) mg/dl POC Glucose 152 H 187 H (70-99) mg/dl Calcium (8.6-10.3) mg/dl AST 12 L (13-39) U/L ALT < 3 L (7-52) U/L Total Protein (6.0-8.3) gm/dl Globulin 2.4 L (2.5-4.0) gm/dl Ur Specific [place] (1.000-1.030) Urine Glucose (UA) (Negative) Urine Blood (Negative) Urine WBC (Auto) (0-5) /hpf U Epithel Cells (Auto) (0-5) /lpf Urine Yeast (None Prsent) Diagnostic Findings MRI brain - unremarkable
[2022-11-14] MEDS: AMANTADINE HCL 100 MG CAPSULE PO SCH (09:33)
[2022-11-14] MEDS: GABAPENTIN 300 MG CAP PO SCH (09:36)
--- NOTE | 2022-11-14 10:59 | Discharge Summary ---
Date of Service November 14, 2022 Admission HPI Per Admitting Provider Lainey Lainez is a 77 year old female with a past medical history of paroxysymal A Fib on Xarelto who suffered an acute left hemispheric stroke 08/16/22 in the context of a 90% stenosis of the proximal left internal carotid artery for which she subsequently underwent left transcarotid artery revascularization with Dr. Jay on 08/26/22. She was sent back to the [facility], from rehab, for further assessment of an acute right hemiparesis and was found to have another small ischemic stroke 09/04/22, slightly different location, but within the left centrum semiovale. Patient was evaluated by Neurology Dr Gage and has been on ASA 81mg , Plavix 75 mg and Xarelto 20mg daily and atorvastatin 40mg. Patient also has a history of Parkinson's Disease, Diabetes on an insulin pump at home, anxiety, GERD and dementia. Patient states she lives alone and this AM upon awakening she felt, very sluggish and went back to sleep. She states that this afternoon she had friends over for lunch and they notified her that she had more than her usual right sided facial droop and she was having trouble speaking. She tells me that she also felt that she was stumbling and was slightly clumsy. She denies any weakness, anesthesias or paresthesias. She denies any chest pain, SOB, cough, fever, nausea, vomiting, vision loss or any other visual problems. She was noted to have some residual right sided facial droop and also some mild right hemiparesis from previous notes. Currently patient states she just feels tired. She feels that her speech is back to her baseline. Patient was evaluated in the ER, CTA head and neck were negative, CXR no acute changes, PTT mildly elevated at 31.2 elevated blood glucose 346 - was given insulin in the ER The ER physician Dr. Garcia spoke with Neurology Dr Lucas who stated patient is not tkn candidate as on NOAC and awoke with symptoms but recommended admission and work up again. Admission Exam Per Admitting Provider Constitutional: well developed, well nourished, cooperative and + lethargic Eyes: PERRL Patient had a hard time opening her eyes but was able to do so Neck: trachea midline, no thyromegaly healed scar left neck Respiratory: normal respiratory effort, lungs clear to auscultation Cardiovascular: Rate/Rhythm: + irregularly irregular Heart Sounds: normal S1 and normal S2; no murmur Extremities: normal capillary refill; no calf tenderness and no edema Gastrointestinal (Abdomen): normal bowel sounds, soft, nontender, no hepatosplenomegaly Skin: no rashes, warm and dry Psychiatric: A+Ox3, euthymic affect Eye Contact: + fair eye contact Speech: + pressured speech mostly talking with eyes closed, states its hard to keep them open but is able to do so mild weakness to document restorer strength right hand , moves all 4 extremities normally, intact finger to nose and heel down albright Principal Diagnosis Stroke ruled out Exacerbertion of previous stroke symptoms due to depression Discharge Exam General: Awake, conversant Heart: S1, S2/regular rate and rhythm, no murmur rubs or gallops Lungs: Clear to auscultation bilaterally. Normal effort Abdomen: Soft/nontender/nondistended. No hepatosplenomegaly Extremities: No clubbing/cyanosis. No edema Behavior: Appropriate, cooperative Discharge Data Allergies Allergy/AdvReac Type Severity Reaction Status Date / Time benztropine Allergy Unknown PT NOT SURE Verified 11/13/22 15:06 citalopram Allergy Unknown PT NOT SURE Verified 11/13/22 15:06 doxycycline Allergy Unknown REMOTE HX, Verified 11/13/22 15:06 PT NOT SURE REACTION minocycline Allergy Unknown REMOTE HX, Verified 11/13/22 15:06 PT NOT SURE REACTION simvastatin Allergy Unknown PT NOT SURE Verified 11/13/22 15:06 sulindac Allergy Unknown PT NOT SURE Verified 11/13/22 15:06 empagliflozin AdvReac Intermediate Recurrent Verified 11/13/22 15:06 [From [facility]] Urinary Tract Infection Consultations 11/13/22 14:00 ED Decision to Admit Stat 11/13/22 18:50 Consult Neurology Routine Ordered Studies 11/13/22 13:23 CT angio head w con Stat CT angio neck with con Stat CT head/brain wo con Stat 11/13/22 16:01 MRI Brain [MR brain wo con] Stat 11/13/22 20:23 CT Abd and Pelvis [CT abd pelvis IV con only] Stat Hospital Course (1) Stroke-like symptoms: Patient was seen in consultation by neurologist MRI brain was negative, stroke ruled out Per neurology, his stroke symptoms have been exacerbated by depression Neurologist recommended starting fluoxetine 20 mg p.o. daily Neurologist recommended discontinuing aspirin Neurologist cleared the patient for discharge. (2) Paroxysmal A-fib: Chronic, unstable Patient is on Xarelto and with recent strokes now also on ASA and Plavix with atorvastatin Neurologist recommended discontinuing aspirin Continue Plavix and Xarelto (3) History of stroke in prior 3 months: MRI brain ruled out stroke (4) Diabetes type 2, uncontrolled: Chronic, stable on Insulin pump at home Last HgbA1C was 7.2 (08/17/22) (5) Parkinson disease: Chronic, stable Continue Amantadine 100mg AMHS and Carbidopa-levodopa 2 pills q6H (6) Hyperlipidemia: chronic stable Continue Atorvastatin 40mg daily Last lipid profile 08/17/22 - C 134, TG 108, HDL 49, LDL 63 (7) GERD (gastroesophageal reflux disease): Chronic and stable Continue Protonix 40mg Plan Discharge today Total Time Total Time Spent Total Time Spent (In Minutes): 35 Discharge Plan Discharge Items Patient Disposition: Home - Self-Care Reason For Visit: ACUTE STROKE LIKE SYMPTOMS Discharge Diagnosis: Stroke ruled out Exacerbertion of previous stroke symptoms due to depression Activity: Resume your previous activity Non-emergency contact: Primary Care Provider Call non-emergency contact if: you have any medication questions and your symptoms worsen Follow-up/Referrals: Damaris Vega MD [Primary Care Provider] - Diet: Heart Healthy Addtl Attending Provider Instructions: Advised to note that your stroke-like symptoms were due to depression Pending Studies at Discharge: No Stand-Alone Forms: [facility] Medications and DC Order Prescriptions: New fluoxetine 20 mg capsule 20 mg PO DAILY Qty: 30 0RF Continued (DME) insulin syringe-needle U-100 [BD Insulin Syringe Ultra-Fine] 1 mL 31 gauge x 5/16 syringe See Rx Instructions .Route Qty: 300 3RF Rx Instructions: use to inject insulin three times a day (DME) FreeStyle Ruben 2 Sensor Kit See Rx Instructions .ROUTE .MEDSUPPLY Qty: 1 Rx Instructions: As directed amantadine HCl 100 mg capsule 100 mg PO AMHS (DME) OneTouch Verio test strips Strip See Rx Instructions .ROUTE .MEDSUPPLY Qty: 10 Rx Instructions: Test blood sugar once daily PRN gabapentin 300 mg capsule 300 mg PO BID lorazepam 0.5 mg tablet 0.5 mg PO BID PRN (Reason: Anxiety) Xarelto 20 mg tablet 20 mg PO HS carbidopa-levodopa 25-100 mg tablet 2 tab PO Q6H Rx Instructions: TAKES AT 0700, 1100, 1600, & 2000 clopidogrel [Plavix] 75 mg Tablet 75 mg PO DAILY atorvastatin 40 mg Tablet 40 mg PO QAM Rx Instructions: PER PT "NOT SURE SHE IS TAKING THIS MED, UNABLE TO VERIFY ON EXT MED HX". sennosides [Senokot] 8.6 mg Tablet 8.6 mg PO QDL PRN (Reason: Constipation) pantoprazole [Protonix] 40 mg Tablet,Delayed Release (Dr/Ec) 40 mg PO DAILYBB Humulin R Regular U-100 Insuln 100 unit/mL Solution 0 unit continuous subcutaneous infusion CONTINOUS Patient Comments: patient doesnt remember how many units polyethylene glycol 3350 [Miralax] 17 gram/dose Powder 17 g PO QDL PRN (Reason: Constipation) fluticasone propionate [Flonase Allergy Relief] 50 mcg/actuation [place],Suspension 2 spray INTRANASAL QAM Rx Instructions: administer into each nostril loratadine 10 mg Tablet 10 mg PO DAILY magnesium hydroxide [Milk Of Magnesia Concentrated] 2,400 mg/10 mL Suspension 30 ml PO DAILY PRN (Reason: Constipation) insulin glargine [Lantus Solostar U-100 Insulin] 100 unit/mL (3 mL) Insulin Pen 10 unit SUBCUT BID PRN (Reason: PER PT, ONLY IN THE HOSPITAL) acetaminophen [Tylenol] 325 mg Tablet 650 mg PO Q4H PRN (Reason: Pain (Scale Score 1-3)) acetaminophen-codeine 300-30 mg tablet 1 tab PO Q4H PRN (Reason: Pain (Scale Score 4-10)) docusate sodium 100 mg Capsule 100 mg PO BID PRN (Reason: Constipation) amoxicillin 500 mg tablet 2,000 mg PO DIRECTED PRN (Reason: PRIOR TO DENTAL APPOINTMENTS) cyclosporine 0.05 % dropperette 1 drp ophthalmic (eye) DIRECTED Metamucil Gummies 2 tab PO HS Discontinued aspirin [Yariel Low Dose Aspirin] 81 mg tablet,delayed release (DR/EC) 81 mg PO QAM Discharge Orders: Discharge Order (Routine); Ordered 11/14/22 Ordered By: Myriam Rasmussen Admission Data Admit Date/Time: 11/13/22 16:01 Attending Provider: Myriam Rasmussen Admit Provider: Kristopher Cortes Primary Care Provider: Damaris Vega Other Providers: Kristopher Cortes Other Interventions: Discharge Summary Assessment (RN) Last Done: 11/14/22 11:26 Coding Level of Care Code 72216 INP/OBS DISCH >30 MIN Diagnoses Stroke-like symptoms R29.90 Paroxysmal A-fib I48.0 History of stroke in prior 3 months Z86.73 Diabetes type 2, uncontrolled E11.65 Parkinson disease G20 Hyperlipidemia E78.5 GERD (gastroesophageal reflux disease) K21.9
== END 2022-11-14 13:30 | disposition home or self-care (01) | DRG 881 ==
LOC: ED 13:26 → 2S 16:01 → SUATTDRO 16:01 → 2S 18:15

== ENCOUNTER 2023-01-10 17:35 | Observation (INO) ==
--- NOTE | 2023-01-10 17:43 | Emergency Department Note ---
Impression & Plan Traumatic hematoma of forehead, Generalized weakness, Ambulatory dysfunction, CHI (closed head injury), Traumatic hematoma of buttock ED Provider Note NAME: BARRINGTON VIVEROS AGE: 77 SEX: F : 1945 ARRIVES VIA: Ambulance INFORMANT: Patient, ED PROVIDER(S): Cate is able to think of the leg CHIEF COMPLAINT: Fall, head strike, abdominal pain MEDICAL DECISION MAKING: Patient presents after a fall that occurred at home. IV was established and blood work was obtained. Patient did have a CT of the head and cervical spine completed along with CT abdomen pelvis given the patient's blood thinner use. Patient did have mild reproducible right-sided chest wall discomfort without overlying bruising so rib series and chest x-ray was obtained. The patient declined any pain medication at this time. The patient's CT of the head and cervical spine are negative. The patient may have 1 right-sided rib fracture noted. CT abdomen pelvis does not show any acute traumatic findings. Patient's blood work is grossly unremarkable. Patient's blood work showed a normal white count H&H and platelet count. Kidney function was unremarkable with mild hyponatremia with sodium of 135. I did discuss inpatient versus outpatient care with the patient as she does live by herself at home. She does receive some in-home care for the 5 hours/day but would not have anybody available overnight. Given this with the patient's assoc iated weakness and history of Parkinson's do not think it unreasonable to stay in hospital. I did speak with the on-call hospitalist service Dr. Lubin and the patient was admitted to the medicine service. Prior /Outside records reviewed: I reviewed an inpatient discharge summary from November 14 at which time the patient had been admitted for strokelike symptoms but had a negative brain MRI. Differential diagnosis: Fracture, sprain, strain, dehydration, electrolyte abnormality, concussion, intra-abdominal bleeding, organ injury, ICH, pneumothorax among others were considered. Diagnostics, as interpreted by me: ECG: A fib, rate of 81, normal QRS, no ST elevations. Cardiac monitoring: An order was placed for continuous cardiac monitoring. The monitor shows a rate of 72 with irregularly irregular rhythm. Patient was placed on pulse oximetry Medical decision rules: In no Imaging studies: See below I informally reviewed the patient's CT of the head which did not show obvious ICH. I did review the patient's rib and chest x-ray which did not show obvious pneumothorax. HPI: Patient presents from home due to concern for fall. The patient believes that she was trying to turn around while using her walker may have stepped on her foot falling causing her to strike her head. Patient does not believe that she passed out but did have a small amount of vomiting prior to arrival. Patient does complain of some mild headache as well as abdominal pain. The patient also does feel as though she has a bruise to her left buttock area. The patient does take blood thinners secondary to a prior history of A-fib. Patient also does have a known history of Parkinson's. Patient currently resides by herself. Patient was able to get her Trisha to call her son who then called 911 the patient was brought in via EMS. Patient denies any numbness or tingling but does complain of generalized but nonfocal weakness. Patient denies any urinary symptoms or cough. Patient denies alcohol tobacco or drug use. Patient states she is compliant with her medications. PAST MEDICAL HISTORY: See Below PAST SURGICAL HISTORY: See Below SOCIAL HISTORY: See Below HOME MEDICATIONS: See Below ALLERGIES: See Below VITALS: See Below PHYSICAL EXAMINATION: GENERAL: NAD, non-toxic. Head: Left-sided forehead ecchymosis. EYE EXAM: Normal conjunctiva. PERRL, no anisocoria and EOM's grossly intact w/o pain. OROPHARYNX: Moist mucus membranes, grossly normal dentition. NECK: Supple, no nuchal rigidity, no adenopathy, non-tender. No signs of meningismus. FROM of the neck with good chin to chest and neck extension. No stridor. No midline C-spine TTP. Chest: Right-sided mid axillary chest wall pain without obvious crepitus or ecchymosis. LUNGS: Clear to auscultation. Normal chest wall mechanics. HEART: Irregularly irregular, no MRG. ABDOMEN: Abdomen soft, non-tender, no masses, no rebound or guarding. BACK: No CVA TTP. SKIN: No rashes, bruising is noted to the left forehead as well as the left buttock. UPPER EXTREMITIES: Upper extremities are grossly normal. Good range of motion and no TTP bilaterally. LOWER EXTREMITIES: Bruising to left buttock, able to pick both legs up off the bed. No sensory deficits. NEURO EXAM: A&O x3, cranial nerves II-XII grossly intact, normal speech, moves all 4 extremities. Past Med/Surg History Medical History Acoustic neuroma FOLLOWS DR MITCHELL - UPCOMING RADIATION TREATMENT AFTER CATARACT SURGERY Ambulatory dysfunction Anxiety Chronic heart failure Complicated migraine "COMPLICATED MIGRAINES" - OCCUR OFTEN AND RESEMBLE SYMPTOMS OF A STROKE PER PT Diabetes INSULIN PUMP DVT prophylaxis GERD (gastroesophageal reflux disease) HX H/O head and neck radiation History of colon polyps History of high cholesterol History of TIA (transient ischemic attack) 2004 ,HX PT FOR, NO REMAINING RESIDUAL EFFECTS Hypertension HX BLOOD PRESSURE MEDICINE, ONCE A FIB DX - MED WAS D/C'D - PT REPORTS BLOOD PRESSURE USUALLY RUNS LOW AROUND 106/58 Mitral valve disorder DENIES Obesity Parkinson disease Permanent atrial fibrillation DX 2 YR AGO, NO HX CARDIOVERSION Stroke 08/16/22 treated at [facility]. still experiencing mild slurred speech at times, using a wheelchair, unable to ambulate at this time since her stroke. able to stand and pivot with assistance. Symptomatic stenosis of left carotid artery Surgical History H/O breast biopsy 10/26/17 LMA#4. 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 S/P appendectomy HX S/P cholecystectomy HX Status post carotid surgery Family History Mother Diabetes Congestive heart failure Colorectal cancer Hypertension Brother Congestive heart failure Colorectal cancer Sister Cancer Unknown Pancreatic cancer Son Family history of colonic polyps Social History Smoking Status: Never smoker Second Hand Exposure: No; Do You Dip or Chew Tobacco: No; Hx Alcohol Use: No Hx Substance Use: No Preferred Language: Tajik Communication Ability: Effective Visual Impairment: No Limitations Forger Helper Required: No Beliefs That Will Affect Care: None marital status: Unknown Current Living Situation: Alone Current Living Situation Comment: with help for 4 hours a day How many Children do You have: 2 Feels Safe at Home: Yes Assistive Devices: Walker Allergies Allergies Allergy/AdvReac Type Severity Reaction Status Date / Time benztropine Allergy Unknown PT NOT SURE Verified 01/10/23 20:13 citalopram Allergy Unknown PT NOT SURE Verified 01/10/23 20:13 doxycycline Allergy Unknown REMOTE HX, Verified 01/10/23 20:13 PT NOT SURE REACTION minocycline Allergy Unknown REMOTE HX, Verified 01/10/23 20:13 PT NOT SURE REACTION simvastatin Allergy Unknown PT NOT SURE Verified 01/10/23 20:13 sulindac Allergy Unknown PT NOT SURE Verified 01/10/23 20:13 empagliflozin AdvReac Intermediate Recurrent Verified 01/10/23 20:13 [From Jardiance] Urinary Tract Infection Home Meds Home Medications Medication Instructions Recorded Confirmed lorazepam 0.5 mg tablet 0.5 mg PO BID PRN Anxiety 11/08/19 01/10/23 rivaroxaban 20 mg tablet (Xarelto) 20 mg PO QPM 11/08/19 01/10/23 carbidopa 25 mg-levodopa 100 mg 2 tab PO QID 02/07/20 01/10/23 tablet flash glucose sensor (FreeStyle #1 ea 09/02/20 01/10/23 Ruben 2 Sensor kit) amantadine HCl 100 mg capsule 100 mg PO AMHS 01/13/22 01/10/23 blood sugar diagnostic (OneTouch #10 ea 01/13/22 01/10/23 Verio test strips) clopidogrel 75 mg tablet (Plavix) 75 mg PO DAILY 08/24/22 01/10/23 acetaminophen 325 mg tablet 650 mg PO Q4H PRN Pain (Scale 09/04/22 01/10/23 (Tylenol) Score 1-3) amoxicillin 500 mg tablet 2,000 mg PO DIRECTED PRN PRIOR 11/13/22 01/10/23 TO DENTAL APPOINTMENTS cetirizine 10 mg tablet (Zyrtec) 10 mg PO DAILY 01/06/23 01/10/23 insulin lispro 100 unit/mL 0 sliding scale dose continuous 01/06/23 01/10/23 subcutaneous solution (Humalog subcutaneous infusion CONTINOUS U-100 Insulin) fluoxetine 20 mg capsule 20 mg PO DAILY 01/10/23 01/10/23 Previous Rx's Medication Instructions Recorded insulin syringe-needle U-100 1 mL #300 ea 09/28/22 31 gauge x 5/16" (BD Insulin Syringe Ultra-Fine) Results & Data (ED) Vital Signs Vital Signs - 24 hr 01/10/23 17:35 01/10/23 17:58 01/10/23 18:10 Temperature 36.8 C Temperature Source Oral Pulse Rate 54 L 83 Pulse Rhythm Irregular Respiratory Rate 14 Respiratory Effort / Characteristics Non-Labored Spontaneous Respiratory Depth Normal Respiratory Pattern Regular Blood Pressure 135/67 Blood Pressure Mean 89 Pulse Oximetry 95 99 Oxygen Delivery Method Room Air Room Air Sepsis Recent Fever Within 48 Hours No Sepsis New/Unexplained Change in Mental Status No Sepsis Action Taken by Nursing No Action Required Home Medications Current Medication List: was personally reviewed by me Laboratory Data Attestation: I reviewed the patient's lab results. 01/11/23 05:04 01/11/23 05:04 Lab Results 01/10/23 01/10/23 01/10/23 Range/Units 17:53 17:53 20:18 WBC 5.11 (4.8-10.8) K/ul RBC 4.36 (4.20-5.40) M/uL Hgb 12.5 (12.0-16.0) g/dl Hct 37.1 (37.0-47.0) % MCV 85.1 (80.0-100.0) fL MCH 28.7 (25.0-34.0) pg MCHC 33.7 (32.0-36.0) g/dL RDW Std Deviation 45.1 (36.4-46.3) fL RDW Coeff of Vicky 14.7 H (11.5-14.5) % Plt Count 209 (130-400) K/uL MPV 10.5 (9.4-12.4) fL Immature Gran % (Auto) 0.6 % Neut % (Auto) 70.6 % Lymph % (Auto) 19.4 % [place] % (Auto) 7.0 % Eos % (Auto) 2.2 % Baso % (Auto) 0.2 % Neut # (Auto) 3.61 (1.40-6.50) K/uL Lymph # (Auto) 0.99 L (1.2-3.4) K/uL [place] # (Auto) 0.36 (0.11-0.59) K/uL Eos # (Auto) 0.11 (0-0.50) K/uL Baso # (Auto) 0.01 (0-0.2) K/uL Immature Gran # (Auto) 0.03 (0.01-0.20) K/uL Sodium 135 L (136-145) mmol/L Potassium 3.9 (3.5-5.1) mmol/L Chloride 102 (98-107) mmol/L Carbon Dioxide 24 (21-32) mmol/L Anion Gap 9 (3-11) BUN 16 (6-23) mg/dl Creatinine 0.81 (0.6-1.2) mg/dl Est Cr Clr Drug Dosing Not Reportable Est GFR ( Amer) 81.8 ml/min Est GFR (Non-Af Amer) 70.5 ml/min BUN/Creatinine Ratio 19.8 (10-20) Glucose 218 H (70-99(Fasting)) mg/dl POC Glucose 504 H* (70-99) mg/dl Calcium 8.9 (8.6-10.3) mg/dl Total Bilirubin 2.5 H (0.2-1.0) mg/dl AST 16 (13-39) U/L ALT < 3 L (7-52) U/L Alkaline Phosphatase 83 (34-104) U/L Total Protein 6.3 (6.0-8.3) gm/dl Albumin 4.0 (3.4-5.0) gm/dl Globulin 2.3 L (2.5-4.0) gm/dl Albumin/Globulin Ratio 1.7 (0.9-2) 01/10/23 Range/Units 20:20 WBC (4.8-10.8) K/ul RBC (4.20-5.40) M/uL Hgb (12.0-16.0) g/dl Hct (37.0-47.0) % MCV (80.0-100.0) fL MCH (25.0-34.0) pg MCHC (32.0-36.0) g/dL RDW Std Deviation (36.4-46.3) fL RDW Coeff of Vicky (11.5-14.5) % Plt Count (130-400) K/uL MPV (9.4-12.4) fL Immature Gran % (Auto) % Neut % (Auto) % Lymph % (Auto) % [place] % (Auto) % Eos % (Auto) % Baso % (Auto) % Neut # (Auto) (1.40-6.50) K/uL Lymph # (Auto) (1.2-3.4) K/uL [place] # (Auto) (0.11-0.59) K/uL Eos # (Auto) (0-0.50) K/uL Baso # (Auto) (0-0.2) K/uL Immature Gran # (Auto) (0.01-0.20) K/uL Sodium (136-145) mmol/L Potassium (3.5-5.1) mmol/L Chloride (98-107) mmol/L Carbon Dioxide (21-32) mmol/L Anion Gap (3-11) BUN (6-23) mg/dl Creatinine (0.6-1.2) mg/dl Est Cr Clr Drug Dosing Est GFR ( Amer) ml/min Est GFR (Non-Af Amer) ml/min BUN/Creatinine Ratio (10-20) Glucose (70-99(Fasting)) mg/dl POC Glucose 330 H* (70-99) mg/dl Calcium (8.6-10.3) mg/dl Total Bilirubin (0.2-1.0) mg/dl AST (13-39) U/L ALT (7-52) U/L Alkaline Phosphatase (34-104) U/L Total Protein (6.0-8.3) gm/dl Albumin (3.4-5.0) gm/dl Globulin (2.5-4.0) gm/dl Albumin/Globulin Ratio (0.9-2) Administered Medications Acetaminophen (Acetaminophen 325 Mg Tab) 650 mg PO Q4H PRN PRN Reason: Pain (Scale Score 1-3) Stop: 02/09/23 23:20 Last Admin: 01/11/23 00:14 Dose: 650 mg Documented By: ALEXEI Amantadine HCl (Amantadine Hcl 100 Mg Capsule) 100 mg PO [facility] Stop: 02/09/23 23:20 Last Admin: 01/11/23 07:49 Dose: 100 mg Documented By: Admin: 01/11/23 00:15 Dose: 100 mg Documented By: ALEXEI Carbidopa/Levodopa (Carbidopa/Levodopa 25/100mg Tab) 2 tab PO QID@0700,1100,1600,2000 [facility] Stop: 02/09/23 23:20 Last Admin: 01/11/23 16:31 Dose: 2 tab Documented By: Admin: 01/11/23 11:18 Dose: 2 tab Documented By: Admin: 01/11/23 06:16 Dose: 2 tab Documented By: Admin: 01/11/23 00:15 Dose: 2 tab Documented By: ALEXEI Cetirizine HCl (Cetirizine Hcl 10 Mg Tablet) 10 mg PO DAILY [facility] Stop: 02/10/23 08:59 Last Admin: 01/11/23 07:50 Dose: 10 mg Documented By: FELA Clopidogrel Bisulfate (Clopidogrel Bisulfate 75 Mg Tab) 75 mg PO DAILY [facility] Stop: 02/10/23 08:59 Last Admin: 01/11/23 07:50 Dose: 75 mg Documented By: FELA Fluoxetine HCl (Fluoxetine Hcl 20 Mg Cap) 20 mg PO DAILY [facility] Stop: 02/10/23 08:59 Last Admin: 01/11/23 07:50 Dose: 20 mg Documented By: FELA Ceftriaxone Sodium 2,000 mg/ (Dextrose) 70 mls @ 100 mls/hr IV Q24H [facility]; Protocol Stop: 01/16/23 08:59 Last Infusion: 01/11/23 10:06 Dose: 0 mls/hr Documented By: Admin: 01/11/23 09:13 Dose: 100 mls/hr Documented By: FELA Insulin Aspart (Insulin Aspart Per Unit Charge) 0 units SC ACHS [facility] Stop: 02/09/23 23:20 Last Admin: 01/11/23 11:57 Dose: 3 units Documented By: FELA Co-signed By: [id number] Admin: 01/11/23 07:57 Dose: 4 units Documented By: FELA Co-signed By: [id number] Admin: 01/11/23 01:00 Dose: 5 units Documented By: ALEXEI Co-signed By: WANDER Insulin Glargine (Lantus Per Unit Charge) 0 units SC QDD [facility]; Protocol Stop: 02/10/23 16:29 Last Admin: 01/11/23 16:29 Dose: Not Given Documented By: FELA Lorazepam (Lorazepam 0.5 Mg Tab) 0.5 mg PO BID PRN PRN Reason: Anxiety Stop: 02/09/23 23:20 Last Admin: 01/11/23 00:15 Dose: 0.5 mg Documented By: ALEXEI Rivaroxaban (Rivaroxaban 20 Mg Tab) 20 mg PO QPM [facility] Stop: 02/09/23 23:20 Last Admin: 01/11/23 00:15 Dose: 20 mg Documented By: ALEXEI Discontinued Medications Sodium Chloride (Nss) 500 mls @ 999 mls/hr IV .Q31M [facility] Stop: 01/10/23 18:45 Last Infusion: 01/10/23 19:11 Dose: 0 mls/hr Documented By: Admin: 01/10/23 18:27 Dose: 999 mls/hr Documented By: IMMANUEL Potassium Chloride/Sodium Chloride (Normal Saline W/20 Meq Kcl) 20 meq in 1,000 mls @ 80 mls/hr IV .[id number] [facility] Stop: 01/11/23 12:14 Last Infusion: 01/11/23 12:14 Dose: 0 mls/hr Documented By: Admin: 01/11/23 00:18 Dose: 80 mls/hr Documented By: ALEXEI Ioversol (Optiray 320 100ml) 94 ml IV ONCE ONE Stop: 01/10/23 18:47 Last Admin: 01/10/23 18:46 Dose: 94 ml Documented By: CHLOE Imaging Data Radiologist's Impression: Abdomen/Pelvis CT 01/10/23 18:10 CT OF THE ABDOMEN AND PELVIS WITH CONTRAST CLINICAL HISTORY: Trauma, abdominal pain, on eliquis. COMPARISON STUDY: CT of the abdomen and pelvis November 13, 2022. TECHNIQUE: Following IV administration of Optiray, axial images of the abdomen and pelvis were obtained from the lung bases to the proximal femurs. Images were reviewed in the axial, sagittal, and coronal planes. IV contrast was administered without complication. Automated exposure control was utilized for the study. A dose lowering technique was utilized adhering to the principles of ALARA. CT DOSE: 2390.34 mGy.cm FINDINGS: A 1.9 cm medial left breast subcutaneous density is new since CT of November 13, 2022. This favors a small contusion. No hemoperitoneum or pneumoperitoneum is present. There is no evidence for traumatic injury to the liver, spleen, adrenal glands, kidneys or pancreas. There is no biliary or pancreatic ductal dilatation. There is mild nodularity of the liver surface. There are no hepatic lesions. There is mild splenomegaly. There is no evidence for a bowel obstruction. The caliber and wall thickness of small and large bowel are normal. There is no free fluid. No acute lumbar spine, pelvic or hip fracture is identified. No acute fractures are identified within the visualized portions of the lower ribs. A few subcutaneous contusions of the lateral left thigh measure up to 3 cm. There is no retroperitoneal hematoma. IMPRESSION: 1. No evidence for traumatic injury to the solid abdominal viscera. 2. A few subcutaneous contusions of the lateral left thigh which measure up to 3 cm. Suspected small left breast contusion. 3. No acute fractures. ACT 112: Negative or not required by law. Electronically signed by: Subhash Pearl M.D. 01/10/2023 7:[address] 01/10/23 18:10 CT OF THE CERVICAL SPINE WITHOUT CONTRAST CLINICAL HISTORY: Trauma COMPARISON STUDY: Cervical spine CT January 06, 2023. TECHNIQUE: Helical axial images of the cervical spine were obtained without IV contrast. Sagittal and coronal reconstructions were viewed. Automated exposure control was utilized for the study. A dose lowering technique was utilized adhe ring to the principles of ALARA. FINDINGS: Incidental note is made of a right lobe thyroid goiter, left carotid stent and venous gas related to the the IV. Reversal of the cervical lordosis is unchanged. There is no cervical spine fracture. The appearance of the cervical spine is unchanged. Moderate multilevel degenerative disc disease and facet arthrosis is present. IMPRESSION: No acute cervical spine fracture or subluxation. No change in appearance of the cervical spine. ACT 112: Negative or not required by law. Electronically signed by: Subhash Pearl M.D. 01/10/2023 7:[address] 01/10/23 18:10 CT OF THE HEAD WITHOUT CONTRAST CLINICAL HISTORY: Trauma, L forehead bruising COMPARISON STUDY: Head CT January 06, 2023. MRI of the brain November 13, 2022. TECHNIQUE: Helical axial images of the head were obtained without IV contrast. Automated exposure control was utilized for the study. A dose lowering technique was utilized adhering to the principles of ALARA. FINDINGS: No acute intracranial hemorrhage, midline shift or mass effect is present. Hypodensity within the left centrum semiovale is chronic. 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 The ventricular system is unremarkable. The basal cisterns are patent. No extra-axial collections are present. There are no findings to suggest acute dural sinus thrombosis or acute territorial infarct. No significant calvarial abnormalities are present. Visualized portions of the sinuses and mastoid air cells are clear. Venous gas is incidentally noted. This is likely related to IV insertion. 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 IMPRESSION: 1. No acute intracranial findings. No change in appearance of the brain. 2. No acute calvarial fracture. ACT 112: Negative or not required by law. Electronically signed by: Subhash Pearl M.D. 01/10/2023 6:56 PM Ribs w/Chest X-Ray 01/10/23 18:10 XR ribs RT min 2V w [id number] CLINICAL HISTORY: fall COMPARISON: Chest radiograph January 06, 2023. Chest radiograph and right rib series June 18, 2022. FINDINGS: There is no pneumothorax or pleural effusion. No airspace opacities are present. Cardiomegaly is unchanged. There is a possible acute nondisplaced fracture of the anterior right eighth rib. No additional acute right rib fractures are present. There is an old, healed right fourth rib fracture. IMPRESSION: No pneumothorax. Possible acute nondisplaced fracture of the anterior right eighth rib. ACT 112: Negative or not required by law. Electronically signed by: Subhash Pearl M.D. 01/10/2023 7:39 PM Discharge Plan Visit Data Chief Complaint: Fall Stated Complaint: FALL ED Provider: Aristeo Dykes Discharge Problem: Traumatic hematoma of forehead, Generalized weakness, Ambulatory dysfunction, CHI (closed head injury), Traumatic hematoma of buttock Patient Disposition: Admitted As Inpatient Discharge Instructions Interventions: ED Discharge Assessment Last Done: 01/10/23 22:54
[2023-01-10] MEDS ORDERED: SODIUM CHLORIDE 0.9% 500 ML IV SCH (18:15)
[2023-01-10 18:26] LABS: Basophils # (auto) 0.01 K/uL (0-0.2); Basophils % (auto) 0.2 %; Eosinophils # (auto) 0.11 K/uL (0-0.50); Eosinophils % (auto) 2.2 %; Hematocrit (blood only) 37.1 % (37.0-47.0); Hemoglobin 12.5 g/dl (12.0-16.0); Immature Granulocytes # (auto) 0.03 K/uL (0.01-0.20); Immature Granulocytes % (auto) 0.6 %; Lymphocytes # (auto) 0.99 K/uL (1.2-3.4); Lymphocytes % (auto) 19.4 %; Mean Corpuscular Hemoglobin 28.7 pg (25.0-34.0); Mean Corpuscular Hgb Conc 33.7 g/dL (32.0-36.0); Mean Corpuscular Volume 85.1 fL (80.0-100.0); Mean Platelet Volume 10.5 fL (9.4-12.4); Monocytes # (auto) 0.36 K/uL (0.11-0.59); Neutrophils # (auto) 3.61 K/uL (1.40-6.50); Neutrophils % (auto) 70.6 %; Platelet Count 209 K/uL (130-400); RDW Coefficient of Variation 14.7 % (11.5-14.5); RDW Standard Deviation 45.1 fL (36.4-46.3); Red Blood Count 4.36 M/uL (4.20-5.40); White Blood Count 5.11 K/ul (4.8-10.8)
[2023-01-10] MEDS ORDERED: OPTIRAY 320 100ml IV ONE (18:46)
[2023-01-10 18:48] LABS: Alanine Aminotransferase < 3 U/L (7-52); Albumin Globulin Ratio 1.7 (0.9-2); Alkaline Phosphatase 83 U/L (34-104); Anion Gap 9 (3-11); Aspartate Aminotransferase 16 U/L (13-39); BUN Creatinine Ratio 19.8 (10-20); Bilirubin,Total 2.5 mg/dl (0.2-1.0); Blood Urea Nitrogen 16 mg/dl (6-23); Calcium 8.9 mg/dl (8.6-10.3); Carbon Dioxide 24 mmol/L (21-32); Chloride 102 mmol/L (98-107); Est GFR (African American) 81.8 ml/min; Est GFR (Non-African American) 70.5 ml/min; Globulin 2.3 gm/dl (2.5-4.0); Glucose 218 mg/dl (70-99(Fasting)); Potassium 3.9 mmol/L (3.5-5.1); Sodium 135 mmol/L (136-145); Total Protein 6.3 gm/dl (6.0-8.3)
--- NOTE | 2023-01-10 18:59 | CT Scan Report ---
CT OF THE HEAD WITHOUT CONTRAST CLINICAL HISTORY: Trauma, L forehead bruising COMPARISON STUDY: Head CT January 06, 2023. MRI of the brain November 13, 2022. TECHNIQUE: Helical axial images of the head were obtained without IV contrast. Automated exposure con trol was utilized for the study. A dose lowering technique was utilized adhering to the principles o f ALARA. FINDINGS: No acute intracranial hemorrhage, midline shift or mass effect is present. Hypodensity with in the left centrum semiovale is chronic. Right cerebellopontine angle mass is better depicted on pre vious MRI. The ventricular system is unremarkable. The basal cisterns are patent. No extra-axial warren ections are present. There are no findings to suggest acute dural sinus thrombosis or acute territori al infarct. No significant calvarial abnormalities are present. Visualized portions of the sinuses an d mastoid air cells are clear. Venous gas is incidentally noted. This is likely related to IV inserti on. 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 IMPRESSION: 1. No acute intracranial findings. No change in appearance of the brain. 2. No acute calvarial fracture. ACT 112: Negative or not required by law. Electronically signed by: Subhash Pearl M.D. 01/10/2023 6:56 PM
--- NOTE | 2023-01-10 19:04 | CT Scan Report ---
CT OF THE CERVICAL SPINE WITHOUT CONTRAST CLINICAL HISTORY: Trauma COMPARISON STUDY: Cervical spine CT January 06, 2023. TECHNIQUE: Helical axial images of the cervical spine were obtained without IV contrast. Sagittal a nd coronal reconstructions were viewed. Automated exposure control was utilized for the study. A do se lowering technique was utilized adhering to the principles of ALARA. FINDINGS: Incidental note is made of a right lobe thyroid goiter, left carotid stent and venous gas r elated to the the IV. Reversal of the cervical lordosis is unchanged. There is no cervical spine frac ture. The appearance of the cervical spine is unchanged. Moderate multilevel degenerative disc diseas e and facet arthrosis is present. IMPRESSION: No acute cervical spine fracture or subluxation. No change in appearance of the cervical spine. ACT 112: Negative or not required by law. Electronically signed by: Subhash Pearl M.D. 01/10/2023 7:02 PM
--- NOTE | 2023-01-10 19:12 | CT Scan Report ---
CT OF THE ABDOMEN AND PELVIS WITH CONTRAST CLINICAL HISTORY: Trauma, abdominal pain, on eliquis. COMPARISON STUDY: CT of the abdomen and pelvis November 13, 2022. TECHNIQUE: Following IV administration of Optiray, axial images of the abdomen and pelvis were obtain ed from the lung bases to the proximal femurs. Images were reviewed in the axial, sagittal, and coron al planes. IV contrast was administered without complication. Automated exposure control was utilize d for the study. A dose lowering technique was utilized adhering to the principles of ALARA. CT DOSE: 2390.34 mGy.cm FINDINGS: A 1.9 cm medial left breast subcutaneous density is new since CT of November 13, 2022. This favo rs a small contusion. No hemoperitoneum or pneumoperitoneum is present. There is no evidence for trau matic injury to the liver, spleen, adrenal glands, kidneys or pancreas. There is no biliary or pancre atic ductal dilatation. There is mild nodularity of the liver surface. There are no hepatic lesions. There is mild splenomegaly. There is no evidence for a bowel obstruction. The caliber and wall thickn ess of small and large bowel are normal. There is no free fluid. No acute lumbar spine, pelvic or hip fracture is identified. No acute fractures are identified within the visualized portions of the lowe r ribs. A few subcutaneous contusions of the lateral left thigh measure up to 3 cm. There is no retro peritoneal hematoma. IMPRESSION: 1. No evidence for traumatic injury to the solid abdominal viscera. 2. A few subcutaneous contusions of the lateral left thigh which measure up to 3 cm. Suspected small left breast contusion. 3. No acute fractures. ACT 112: Negative or not required by law. Electronically signed by: Subhash Pearl M.D. 01/10/2023 7:10 PM
--- NOTE | 2023-01-10 19:41 | XRay Report ---
XR ribs RT min 2V w CXR1V CLINICAL HISTORY: fall COMPARISON: Chest radiograph January 06, 2023. Chest radiograph and right rib series June 18, 2022. FINDINGS: There is no pneumothorax or pleural effusion. No airspace opacities are present. Cardiomeg patricia is unchanged. There is a possible acute nondisplaced fracture of the anterior right eighth rib. N o additional acute right rib fractures are present. There is an old, healed right fourth rib fracture . IMPRESSION: No pneumothorax. Possible acute nondisplaced fracture of the anterior right eighth rib. ACT 112: Negative or not required by law. Electronically signed by: Subhash Pearl M.D. 01/10/2023 7:39 PM
--- NOTE | 2023-01-10 20:43 | History & Physical Report ---
Date of Service January 10, 2023 Assessment & Plan (1) Fall from standing: (2) Traumatic hematoma of forehead: (3) Contusion of elbow, left: (4) GERD (gastroesophageal reflux disease): (5) Paroxysmal A-fib: (6) Parkinson's disease dementia: (7) A-fib: (8) Closed head injury: (9) Diabetic peripheral neuropathy: (10) Diabetes type 2, uncontrolled: (11) Ambulatory dysfunction: (12) Generalized weakness: Plan Recurrent falls- Due to combination of Parkinson disease, residual stroke effect, diabetic peripheral neuropathy, generalized weakness, and others Patient fortunately has not had any hip fractures or other bone fractures yet We will consult PT/OT This is again another of mechanical falls She does have help 4 hours daily, but for her own safety either needs more help in her home, or should be considered for assisted living Parkinson's disease and dementia- Continue amantadine, carbidopa levodopa Diabetes/diabetic peripheral neuropathy- Continue NovoLog SSI Atrial fibrillation- Continue Xarelto History of Present Illness Chief Complaint: The patient presents to the emergency department after a fall earlier in the evening, when she was walking with her walker. Primary Care Provider: Damaris Vega MD The patient is a 77-year-old female with a past medical history including recurrent falls, Parkinson's, CVA, atrial flutter, PAF, GERD, slurred speech, CHF, UTI, pneumonia, closed head injury, SNHL bilaterally, nonproliferative diabetic retinopathy, diabetes mellitus, anxiety, hyperlipidemia, generalized weakness and ambulatory dysfunction. The patient has had to seek medical care several times in the previous months: 05/23-06/03/2022, 08/16-08/20/2022, 09/04-09/14/2022, 11/13-11/14/2022. Emergency department visits on 12/24 and 01/06/2023. She presents to the emergency department today after a fall earlier today, which she attributes to ambulatory dysfunction associated with Parkinson's and recent stroke. She did also hit the left frontal area of her head as well Allergies Allergy/AdvReac Type Severity Reaction Status Date / Time benztropine Allergy Unknown PT NOT SURE Verified 01/10/23 20:13 citalopram Allergy Unknown PT NOT SURE Verified 01/10/23 20:13 doxycycline Allergy Unknown REMOTE HX, Verified 01/10/23 20:13 PT NOT SURE REACTION minocycline Allergy Unknown REMOTE HX, Verified 01/10/23 20:13 PT NOT SURE REACTION simvastatin Allergy Unknown PT NOT SURE Verified 01/10/23 20:13 sulindac Allergy Unknown PT NOT SURE Verified 01/10/23 20:13 empagliflozin AdvReac Intermediate Recurrent Verified 01/10/23 20:13 [From Jardiance] Urinary Tract Infection Home Medications Medication Instructions Recorded Confirmed Type lorazepam 0.5 mg tablet 0.5 mg PO BID PRN Anxiety 11/08/19 01/10/23 History rivaroxaban 20 mg tablet (Xarelto) 20 mg PO QPM 11/08/19 01/10/23 History carbidopa 25 mg-levodopa 100 mg 2 tab PO QID 02/07/20 01/10/23 History tablet flash glucose sensor (FreeStyle #1 ea 09/02/20 01/10/23 History Ruben 2 Sensor kit) amantadine HCl 100 mg capsule 100 mg PO AMHS 01/13/22 01/10/23 History blood sugar diagnostic (OneTouch #10 ea 01/13/22 01/10/23 History Verio test strips) clopidogrel 75 mg tablet (Plavix) 75 mg PO DAILY 08/24/22 01/10/23 History acetaminophen 325 mg tablet 650 mg PO Q4H PRN Pain (Scale 09/04/22 01/10/23 History (Tylenol) Score 1-3) insulin syringe-needle U-100 1 mL #300 ea 09/28/22 01/10/23 Rx 31 gauge x 5/16" (BD Insulin Syringe Ultra-Fine) amoxicillin 500 mg tablet 2,000 mg PO DIRECTED PRN PRIOR 11/13/22 01/10/23 History TO DENTAL APPOINTMENTS cetirizine 10 mg tablet (Zyrtec) 10 mg PO DAILY 01/06/23 01/10/23 History insulin lispro 100 unit/mL 0 sliding scale dose continuous 01/06/23 01/10/23 History subcutaneous solution (Humalog subcutaneous infusion CONTINOUS U-100 Insulin) fluoxetine 20 mg capsule 20 mg PO DAILY 01/10/23 01/10/23 History Past Med/Surg History Medical History (Updated 01/10/23 @ 21:30 by Dani Lopez MD) Acoustic neuroma FOLLOWS DR MITCHELL - UPCOMING RADIATION TREATMENT AFTER CATARACT SURGERY Ambulatory dysfunction Anxiety Chronic heart failure Complicated migraine "COMPLICATED MIGRAINES" - OCCUR OFTEN AND RESEMBLE SYMPTOMS OF A STROKE PER PT Diabetes INSULIN PUMP DVT prophylaxis GERD (gastroesophageal reflux disease) HX H/O head and neck radiation History of colon polyps History of high cholesterol History of TIA (transient ischemic attack) 2004 ,HX PT FOR, NO REMAINING RESIDUAL EFFECTS Hypertension HX BLOOD PRESSURE MEDICINE, ONCE A FIB DX - MED WAS D/C'D - PT REPORTS BLOOD PRESSURE USUALLY RUNS LOW AROUND 106/58 Mitral valve disorder DENIES Obesity Parkinson disease Permanent atrial fibrillation DX 2 YR AGO, NO HX CARDIOVERSION Stroke 08/16/22 treated at [facility]. still experiencing mild slurred speech at times, using a wheelchair, unable to ambulate at this time since her stroke. able to stand and pivot with assistance. Symptomatic stenosis of left carotid artery Surgical History H/O breast biopsy 10/26/17 LMA#4. 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 S/P appendectomy HX S/P cholecystectomy HX Status post carotid surgery Family History Mother Diabetes Congestive heart failure Colorectal cancer Hypertension Brother Congestive heart failure Colorectal cancer Sister Cancer Unknown Pancreatic cancer Son Family history of colonic polyps Social History Smoking Status: Never smoker Second Hand Exposure: No; Do You Dip or Chew Tobacco: No; Hx Alcohol Use: No Hx Substance Use: No Preferred Language: Nepali Communication Ability: Effective Visual Impairment: No Limitations Securities Counselor Required: No Beliefs That Will Affect Care: None marital status: Unknown Current Living Situation: Personal Care Facility Current Living Situation Comment: from [facility] How many Children do You have: 2 Feels Safe at Home: Yes Assistive Devices: Cane and Walker Review of Systems Review of Systems: the patient denies chest pain, palpitations, shortness of breath, dyspnea on exertion, cough, lower extremity swelling, sore throat, fevers, chills, sweats, nausea, vomiting, diarrhea , constipation, abdominal pain, pelvic pain, blood in urine or stool, dysuria, urinary frequency or urgency, lightheadedness, dizziness, headache, memory loss, loss of consciousness, focal or generalized weakness, numbness or tingling in arms, or night sweats. The review of systems is otherwise negative other than for that already noted above, and at least 10 systems have been reviewed. Physical Exam Physical Exam: The patient is awake, alert and oriented 3, well developed and well nourished, left frontal forehead bruise, lying in bed and in no acute distress. HEENT--PERRL, EOMI, mucous membranes and oropharynx dry. Neck--supple. No JVD. No bruits. Thyroid normal, trachea midline, no adenopathy. Heart--normal S1 and S2. No murmurs, rubs or gallops. Lungs--clear bilaterally, no respiratory distress, no accessory muscle use. Abdomen--normal bowel sounds and soft. Nontender. Nondistended limited exam Extremities--no cyanosis or clubbing. No edema. There are good distal pulses b/l. Dermatologic--normal skin turgor, normal color, no abnormal lymph nodes, no rash. Neurologic--limited exam Rheumatologic--limited exam Psychiatric--normal affect. Results & Data Results & Data Vital Signs (Past 12 Hours) Vital Signs Temp Pulse Resp BP Pulse Ox O2 Del Method 01/10/23 18:10 99 Room Air 01/10/23 17:58 83 01/10/23 17:35 36.8 C 54 L 14 135/67 95 Room Air Laboratory Results Laboratory Results WBC 5.11 K/ul (4.8-10.8) 01/10/23 17:53 RBC 4.36 M/uL (4.20-5.40) 01/10/23 17:53 Hgb 12.5 g/dl (12.0-16.0) 01/10/23 17:53 Hct 37.1 % (37.0-47.0) 01/10/23 17:53 MCV 85.1 fL (80.0-100.0) 01/10/23 17:53 MCH 28.7 pg (25.0-34.0) 01/10/23 17:53 MCHC 33.7 g/dL (32.0-36.0) 01/10/23 17:53 RDW Std Deviation 45.1 fL (36.4-46.3) 01/10/23 17:53 RDW Coeff of Vicky 14.7 % (11.5-14.5) H 01/10/23 17:53 Plt Count 209 K/uL (130-400) 01/10/23 17:53 MPV 10.5 fL (9.4-12.4) 01/10/23 17:53 Immature Gran % (Auto) 0.6 % 01/10/23 17:53 Neut % (Auto) 70.6 % 01/10/23 17:53 Lymph % (Auto) 19.4 % 01/10/23 17:53 [place] % (Auto) 7.0 % 01/10/23 17:53 Eos % (Auto) 2.2 % 01/10/23 17:53 Baso % (Auto) 0.2 % 01/10/23 17:53 Neut # (Auto) 3.61 K/uL (1.40-6.50) 01/10/23 17:53 Lymph # (Auto) 0.99 K/uL (1.2-3.4) L 01/10/23 17:53 [place] # (Auto) 0.36 K/uL (0.11-0.59) 01/10/23 17:53 Eos # (Auto) 0.11 K/uL (0-0.50) 01/10/23 17:53 Baso # (Auto) 0.01 K/uL (0-0.2) 01/10/23 17:53 Immature Gran # (Auto) 0.03 K/uL (0.01-0.20) 01/10/23 17:53 Sodium 135 mmol/L (136-145) L 01/10/23 17:53 Potassium 3.9 mmol/L (3.5-5.1) 01/10/23 17:53 Chloride 102 mmol/L (98-107) 01/10/23 17:53 Carbon Dioxide 24 mmol/L (21-32) 01/10/23 17:53 Anion Gap 9 (3-11) 01/10/23 17:53 BUN 16 mg/dl (6-23) 01/10/23 17:53 Creatinine 0.81 mg/dl (0.6-1.2) 01/10/23 17:53 Est Cr Clr Drug Dosing Not Reportable 01/10/23 17:53 Est GFR ( Amer) 81.8 ml/min 01/10/23 17:53 Est GFR (Non-Af Amer) 70.5 ml/min 01/10/23 17:53 BUN/Creatinine Ratio 19.8 (10-20) 01/10/23 17:53 Glucose 218 mg/dl (70-99(Fasting)) H 01/10/23 17:53 POC Glucose 330 mg/dl (70-99) H* 01/10/23 20:20 Calcium 8.9 mg/dl (8.6-10.3) 01/10/23 17:53 Total Bilirubin 2.5 mg/dl (0.2-1.0) H 01/10/23 17:53 AST 16 U/L (13-39) 01/10/23 17:53 ALT < 3 U/L (7-52) L 01/10/23 17:53 Alkaline Phosphatase 83 U/L (34-104) 01/10/23 17:53 Total Protein 6.3 gm/dl (6.0-8.3) 01/10/23 17:53 Albumin 4.0 gm/dl (3.4-5.0) 01/10/23 17:53 Globulin 2.3 gm/dl (2.5-4.0) L 01/10/23 17:53 Albumin/Globulin Ratio 1.7 (0.9-2) 01/10/23 17:53 Impressions Abdomen/Pelvis CT 01/10/23 18:10 CT OF THE ABDOMEN AND PELVIS WITH CONTRAST CLINICAL HISTORY: Trauma, abdominal pain, on eliquis. COMPARISON STUDY: CT of the abdomen and pelvis November 13, 2022. TECHNIQUE: Following IV administration of Optiray, axial images of the abdomen and pelvis were obtained from the lung bases to the proximal femurs. Images were reviewed in the axial, sagittal, and coronal planes. IV contrast was administered without complication. Automated exposure control was utilized for the study. A dose lowering technique was utilized adhering to the principles of ALARA. CT DOSE: 2390.34 mGy.cm FINDINGS: A 1.9 cm medial left breast subcutaneous density is new since CT of November 13, 2022. This favors a small contusion. No hemoperitoneum or pneumoperitoneum is present. There is no evidence for traumatic injury to the liver, spleen, adrenal glands, kidneys or pancreas. There is no biliary or pancreatic ductal dilatation. There is mild nodularity of the liver surface. There are no hepatic lesions. There is mild splenomegaly. There is no evidence for a bowel obstruction. The caliber and wall thickness of small and large bowel are normal. There is no free fluid. No acute lumbar spine, pelvic or hip fracture is identified. No acute fractures are identified within the visualized portions of the lower ribs. A few subcutaneous contusions of the lateral left thigh measure up to 3 cm. There is no retroperitoneal hematoma. IMPRESSION: 1. No evidence for traumatic injury to the solid abdominal viscera. 2. A few subcutaneous contusions of the lateral left thigh which measure up to 3 cm. Suspected small left breast contusion. 3. No acute fractures. ACT 112: Negative or not required by law. Electronically signed by: Subhash Pearl M.D. 01/10/2023 7:[address] 01/10/23 18:10 CT OF THE CERVICAL SPINE WITHOUT CONTRAST CLINICAL HISTORY: Trauma COMPARISON STUDY: Cervical spine CT January 06, 2023. TECHNIQUE: Helical axial images of the cervical spine were obtained without IV contrast. Sagittal and coronal reconstructions were viewed. Automated exposure control was utilized for the study. A dose lowering technique was utilized adhering to the principles of ALARA. FINDINGS: Incidental note is made of a right lobe thyroid goiter, left carotid stent and venous gas related to the the IV. Reversal of the cervical lordosis is unchanged. There is no cervical spine fracture. The appearance of the cervical spine is unchanged. Moderate multilevel degenerative disc disease and facet arthrosis is present. IMPRESSION: No acute cervical spine fracture or subluxation. No change in appearance of the cervical spine. ACT 112: Negative or not required by law. Electronically signed by: Subhash Pearl M.D. 01/10/2023 7:[address] 01/10/23 18:10 CT OF THE HEAD WITHOUT CONTRAST CLINICAL HISTORY: Trauma, L forehead bruising COMPARISON STUDY: Head CT January 06, 2023. MRI of the brain November 13, 2022. TECHNIQUE: Helical axial images of the head were obtained without IV contrast. Automated exposure control was utilized for the study. A dose lowering technique was utilized adhering to the principles of ALARA. FINDINGS: No acute intracranial hemorrhage, midline shift or mass effect is present. Hypodensity within the left centrum semiovale is chronic. 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 The ventricular system is unremarkable. The basal cisterns are patent. No extra-axial collections are present. There are no findings to suggest acute dural sinus thrombosis or acute territorial infarct. No significant calvarial abnormalities are present. Visualized portions of the sinuses and mastoid air cells are clear. Venous gas is incidentally noted. This is likely related to IV insertion. 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 IMPRESSION: 1. No acute intracranial findings. No change in appearance of the brain. 2. No acute calvarial fracture. ACT 112: Negative or not required by law. Electronically signed by: Subhash Pearl M.D. 01/10/2023 6:56 PM Ribs w/Chest X-Ray 01/10/23 18:10 XR ribs RT min 2V w CXR1V CLINICAL HISTORY: fall COMPARISON: Chest radiograph January 06, 2023. Chest radiograph and right rib series June 18, 2022. FINDINGS: There is no pneumothorax or pleural effusion. No airspace opacities are present. Cardiomegaly is unchanged. There is a possible acute nondisplaced fracture of the anterior right eighth rib. No additional acute right rib fractures are present. There is an old, healed right fourth rib fracture. IMPRESSION: No pneumothorax. Possible acute nondisplaced fracture of the anterior right eighth rib. ACT 112: Negative or not required by law. Electronically signed by: Subhash Pearl M.D. 01/10/2023 7:39 PM Code Status & VTE Plan Code Status Full code VTE Prophylaxis Plan VTE Prophylaxis will be ordered: Yes PG Care Time/CCT Total # of Minutes Spent Total Time Spent with Patient: Total time spent is greater than 50% in coordination of care (as documented) at patient's floor/unit and/or counseling patient: Coding Level of Care Code 86715 INT INP/OBS CARE 3/75MIN Diagnoses Fall from standing W19.XXXA Traumatic hematoma of forehead S00.83XA Contusion of elbow, left S50.02XA GERD (gastroesophageal reflux disease) K21.9 Paroxysmal A-fib I48.0 Parkinson's disease dementia G20; F02.80 A-fib I48.91 Closed head injury S09.90XA Encounter type: initial encounter Diabetic peripheral neuropathy E11.42 Diabetes type 2, uncontrolled E11.65 Ambulatory dysfunction R26.2 Generalized weakness R53.1 (8) Closed head injury Encounter type: initial encounter Qualified Code(s): S09.90XA - Unspecified injury of head, initial encounter
[2023-01-10 21:40] LABS: Appearance Urine Clear (Clear); Bacteria Urine Automated 4+ (Negative); Bilirubin Urine Negative (Negative); Blood Urine Negative (Negative); Cast Urine Automated 0 /lpf (0-5); Color Urine Yellow; Glucose Urine UA 3+ (Negative); Ketones Urine Trace (Negative); Leukocyte Esterase Urine 1+ (Negative); Nitrite Urine Negative (Negative); Protein Urine Negative (Negative); RBC Urine Automated 0-4 /hpf (0-4); Specific Gravity Urine 1.031 (1.000-1.030); Urobilinogen Urine Negative (Negative); pH Urine 6.5 (4.5-7.5)
[2023-01-10] MEDS ORDERED: GLUCOSE 10 TAB/TUBE PO PRN (23:21)
[2023-01-10] MEDS ORDERED: GLUCOSE 40% GEL 15 GM TUBE PO PRN (23:21)
[2023-01-10] MEDS ORDERED: NON-FORMULARY MEDICATION (Insulin Lispro [Humalog U-100 Insulin] 100 unit/mL solution) continuous subcutaneous infusion SCH (23:21)
[2023-01-10] MEDS ORDERED: DEXTROSE 50% 50 ML SYRINGE IV PRN (23:21)
[2023-01-10] MEDS ORDERED: GLUCAGON FOR INJ 1 MG VIAL SQ PRN (23:21)
[2023-01-10] MEDS ORDERED: CARBOHYDRATES FOR HYPOGLYCEMIA PO PRN (23:21)
[2023-01-10] MEDS ORDERED: PHARMACY GLYCEMIC MGMT CONSULT PRN (23:21)
[2023-01-10] MEDS ORDERED: NSS + 20MEQ KCL 20 MEQ/1,000 ML BAG IV SCH (23:45)
[2023-01-11] MEDS: ACETAMINOPHEN 325 MG TAB PO PRN ×2 (00:14→21:29)
[2023-01-11] MEDS: LORazepam 0.5 MG TAB PO PRN ×2 (00:15→21:29)
[2023-01-11] MEDS: AMANTADINE HCL 100 MG CAPSULE PO SCH ×3 (00:15→21:29)
[2023-01-11] MEDS: CARBIDOPA/LEVODOPA 25/100MG TAB PO SCH ×5 (00:15→21:28)
[2023-01-11] MEDS: RIVAROXABAN 20 MG TAB PO SCH ×2 (00:15→21:29)
[2023-01-11] MEDS: INSULIN ASPART PER UNIT CHARGE SC SCH ×5 (01:00→20:02)
[2023-01-11 06:17] LABS: Eosinophils % (auto) 2.3 %; Hematocrit (blood only) 33.9 % (37.0-47.0); Hemoglobin 11.6 g/dl (12.0-16.0); Lymphocytes % (auto) 22.3 %; Mean Corpuscular Hemoglobin 28.7 pg (25.0-34.0); Mean Corpuscular Hgb Conc 34.2 g/dL (32.0-36.0); Mean Corpuscular Volume 83.9 fL (80.0-100.0); Mean Platelet Volume 10.6 fL (9.4-12.4); Monocytes % (auto) 8.6 %; Platelet Count 199 K/uL (130-400); RDW Coefficient of Variation 14.8 % (11.5-14.5); RDW Standard Deviation 44.7 fL (36.4-46.3); Red Blood Count 4.04 M/uL (4.20-5.40); White Blood Count 5.21 K/ul (4.8-10.8)
[2023-01-11 06:18] LABS: Basophils # (auto) 0.02 K/uL (0-0.2); Basophils % (auto) 0.4 %; Eosinophils # (auto) 0.12 K/uL (0-0.50); Immature Granulocytes # (auto) 0.02 K/uL (0.01-0.20); Immature Granulocytes % (auto) 0.4 %; Lymphocytes # (auto) 1.16 K/uL (1.2-3.4); Monocytes # (auto) 0.45 K/uL (0.11-0.59); Neutrophils # (auto) 3.44 K/uL (1.40-6.50)
[2023-01-11 06:33] LABS: Albumin Level 3.4 gm/dl (3.4-5.0); BUN Creatinine Ratio 19.7 (10-20); Calcium 8.7 mg/dl (8.6-10.3); Creatinine Clr Calc Pharmacy 75.4 ml/min; Est GFR (African American) 99.5 ml/min; Est GFR (Non-African American) 85.8 ml/min; Magnesium 1.9 mg/dl (1.7-2.4); Phosphorus 3.2 mg/dl (2.5-4.9); Potassium 3.4 mmol/L (3.5-5.1)
[2023-01-11 07:50] LABS: Estimated Average Glucose 180 mg/dl; Hemoglobin A1C 7.9 % (4.5-5.6)
[2023-01-11] MEDS: CETIRIZINE HCL 10 MG TABLET PO SCH (07:50)
[2023-01-11] MEDS: CLOPIDOGREL BISULFATE 75 MG TAB PO SCH (07:50)
[2023-01-11] MEDS: FLUoxetine HCL 20 MG CAP PO SCH (07:50)
[2023-01-11] MEDS: cefTRIAXone SODIUM 2,000 MG in DEXTROSE 5% 50 ML IV SCH (09:13)
--- NOTE | 2023-01-11 11:20 | Electrocardiogram Report ---
Test Reason : Blood Pressure : / mmHG Vent. Rate : 081 BPM Atrial Rate : 000 BPM P-R Int : 000 ms QRS Dur : 082 ms QT Int : 390 ms P-R-T Axes : 000 -43 044 degrees QTc Int : 453 ms Poor data quality, interpretation may be adversely affected Atrial fibrillation with a competing junctional pacemaker Left anterior fascicular block Diffuse Minor Nonspecific T wave abnormality Abnormal ECG When compared with ECG of 06-JAN-2023 04:50, Nonspecific T wave abnormality now present Confirmed by Jose Valdez ([id number]) on 01/11/2023 11:20:46 AM Referred By: REFERRED SELF Confirmed By:Jose Valdez
--- NOTE | 2023-01-11 14:19 | Pharmacy Report ---
Pharmacy Glycemic Short Note 2 - Date of Service January 11, 2023 - Glycemic Short BSG Results (Last 24 hours): 01/10/23 01/10/23 01/10/23 17:53 20:18 20:20 Glucose 218 H POC Glucose 504 H* 330 H* 01/10/23 01/10/23 01/11/23 22:49 23:15 05:04 Glucose 70 POC Glucose 256 H 244 H 01/11/23 01/11/23 07:28 11:14 Glucose POC Glucose 86 76 OUTPATIENT ANTIDIABETIC REGIMEN: * Humalog pump with following rates: 0.35 units/hr (8 units/day) CF 35 CR 7 ASSESSMENT: * Ms Ramirez is a 77 y/o F with a PMH of T2DM on insulin pump who presents s/p fall. Patient's insulin pump was removed around 1030 TODAY. * When patient was admitted on 01/10, her blood sugars were extremely elevated ( 504, 256) but rapidly decreased with correction. * BSGs today are 86-79 mg/dL. * Will give lantus 5 units with dinner if BSGs trend greater than 120 mg/dL. * Novolog CF 30 CR 8 which are similar to outpatient setting. PLAN FOR INPATIENT GLYCEMIC CONTROL: * Hold outpatient oral diabetes medications * Basal insulin * Lantus 5 units SQ with dinner today if BSG > 120 mg/dL * Bolus insulin * NovoLog per scale ACHS or Q6hrs while NPO * Goal Range: Low 110 mg/dL - High 140 mg/dL * Correction Factor: 30 mg/dL/unit * Nutritional / Prandial insulin per carb ratio of 1 unit per 8 grams CHO consumed
[2023-01-11] MEDS ORDERED: LANTUS PER UNIT CHARGE SC SCH ×2 (16:30→21:00)
--- NOTE | 2023-01-11 20:18 | Hospitalist Progress Note ---
Date of Service January 11, 2023 Assessment & Plan (1) Fall from standing: Plan: Recurrent falls-CT head/cervical spine negative. With Right anterior 8th rib fracture with mild pain. Hematoma left buttock/lateral thigh-hgb stable Due to combination of Parkinson disease, residual stroke effect, diabetic peripheral neuropathy, generalized weakness, and possibly UTI Patient fortunately has not had any hip fractures or other bone fractures yet PT/OT recommends rehab--> referrals placed This is again another of mechanical falls She does have help 4 hours daily, but for her own safety either needs more help in her home, or should be considered for assisted living Parkinson's disease and dementia- Continue amantadine, carbidopa levodopa Diabetes/diabetic peripheral neuropathy- Continue NovoLog SSI Atrial fibrillation- Continue Xarelto UTI-Ur cx growing GNR. Had dysuria prior to fall started ceftriaxone follow ur cx Dispo-rehab referrals placed, medically stable for discharge (2) Contusion of elbow, left: (3) GERD (gastroesophageal reflux disease): (4) Paroxysmal A-fib: (5) Parkinson's disease dementia: (6) A-fib: (7) Closed head injury: (8) Diabetic peripheral neuropathy: (9) Diabetes type 2, uncontrolled: (10) Ambulatory dysfunction: (11) Generalized weakness: (12) Traumatic hematoma of buttock: (13) UTI (urinary tract infection): Admission and Anticipated Discharge Date Admission Date: January 10, 2023 Anticipated date of discharge: 01/12/23 Subjective feeling better, less lightheaded has bruises all over her body but denies much pain anywhere is agreeable to rehab placement has been having dysuria and pressure in bladder region Tele with rate controlled afib Physical Exam Constitutional: WD/WN, vitals as above Neck: trachea midline, no thyromegaly Respiratory: normal respiratory effort, lungs clear to auscultation Cardiovascular: Rate/Rhythm: regular rate and + irregularly irregular Heart Sounds: no murmur Extremities: no edema Chest (Breasts): Breast: + abnormal inspection of breast (left medial breast with ecchymosis) Gastrointestinal (Abdomen): normal bowel sounds, soft, nontender, no hepatosplenomegaly Musculoskeletal: Extremities: no cyanosis and no clubbing Skin: Trauma: + hematoma (left lateral thigh, 10 cm) Neurologic: moves all extremities and awake; no focal motor deficits Psychiatric: A+Ox3, euthymic affect Lymphatic: no lymphedema Results & Data Results & Data Vital Signs (Past 12 Hours) Vital Signs Temp Pulse Pulse Resp BP Pulse Ox O2 Del Method 01/11/23 15:24 71 01/11/23 15:00 36.7 C 67 18 116/71 99 Room Air 01/11/23 11:30 36.6 C 69 18 145/70 H 99 Room Air Laboratory Results CBC, BMP, HgbA1C reviewed Ur cx with GNR PG Care Time/CCT Total # of Minutes Spent Total Time Spent with Patient: Total time spent is greater than 50% in coordination of care (as documented) at patient's floor/unit and/or counseling patient: Coding Level of Care Code 12950 SUB INP/OBS CARE 2/35MIN Diagnoses Fall from standing W19.XXXA Contusion of elbow, left S50.02XA GERD (gastroesophageal reflux disease) K21.9 Paroxysmal A-fib I48.0 Parkinson's disease dementia G20; F02.80 A-fib I48.91 Closed head injury S09.90XA Encounter type: initial encounter Diabetic peripheral neuropathy E11.42 Diabetes type 2, uncontrolled E11.65 Ambulatory dysfunction R26.2 Generalized weakness R53.1 Traumatic hematoma of buttock S30.0XXA Encounter type: initial encounter UTI (urinary tract infection) N39.0 Hematuria presence: without hematuria Urinary tract infection type: site unspecified (7) Closed head injury Encounter type: initial encounter Qualified Code(s): S09.90XA - Unspecified injury of head, initial encounter (12) Traumatic hematoma of buttock Encounter type: initial encounter Qualified Code(s): S30.0XXA - Contusion of lower back and pelvis, initial encounter (13) UTI (urinary tract infection) Hematuria presence: without hematuria Urinary tract infection type: site unspecified Qualified Code(s): N39.0 - Urinary tract infection, site not specified
[2023-01-12] MEDS: CARBIDOPA/LEVODOPA 25/100MG TAB PO SCH ×4 (06:23→21:20)
[2023-01-12] MEDS: AMANTADINE HCL 100 MG CAPSULE PO SCH ×2 (07:47→21:18)
[2023-01-12] MEDS: FLUoxetine HCL 20 MG CAP PO SCH (07:48)
[2023-01-12] MEDS: CETIRIZINE HCL 10 MG TABLET PO SCH (07:48)
[2023-01-12] MEDS: CLOPIDOGREL BISULFATE 75 MG TAB PO SCH (07:48)
[2023-01-12] MEDS: cefTRIAXone SODIUM 2,000 MG in DEXTROSE 5% 50 ML IV SCH (07:58)
[2023-01-12 08:16] LABS: Basophils # (auto) 0.02 K/uL (0-0.2); Basophils % (auto) 0.5 %; Eosinophils # (auto) 0.11 K/uL (0-0.50); Eosinophils % (auto) 2.7 %; Hematocrit (blood only) 37.1 % (37.0-47.0); Hemoglobin 12.5 g/dl (12.0-16.0); Immature Granulocytes # (auto) 0.02 K/uL (0.01-0.20); Immature Granulocytes % (auto) 0.5 %; Lymphocytes # (auto) 0.97 K/uL (1.2-3.4); Lymphocytes % (auto) 23.7 %; Mean Corpuscular Hemoglobin 28.9 pg (25.0-34.0); Mean Corpuscular Hgb Conc 33.7 g/dL (32.0-36.0); Mean Corpuscular Volume 85.7 fL (80.0-100.0); Mean Platelet Volume 10.3 fL (9.4-12.4); Monocytes # (auto) 0.34 K/uL (0.11-0.59); Monocytes % (auto) 8.3 %; Neutrophils # (auto) 2.64 K/uL (1.40-6.50); Neutrophils % (auto) 64.3 %; Platelet Count 169 K/uL (130-400); RDW Coefficient of Variation 15.2 % (11.5-14.5); RDW Standard Deviation 46.9 fL (36.4-46.3); Red Blood Count 4.33 M/uL (4.20-5.40)
[2023-01-12 08:43] LABS: Albumin Level 3.6 gm/dl (3.4-5.0); BUN Creatinine Ratio 23.2 (10-20); Creatinine Clr Calc Pharmacy 72.2 ml/min; Est GFR (Non-African American) 84.6 ml/min; Magnesium 1.8 mg/dl (1.7-2.4); Phosphorus 3.6 mg/dl (2.5-4.9); Potassium 3.9 mmol/L (3.5-5.1)
[2023-01-12] MEDS: INSULIN ASPART PER UNIT CHARGE SC SCH ×4 (08:43→21:17)
[2023-01-12] MEDS: LANTUS PER UNIT CHARGE SC SCH (09:24)
[2023-01-12] MEDS: AMOXICILLIN/CLAVULANATE 875 MG TAB PO SCH (15:54)
[2023-01-12] MEDS: NYSTATIN POWDER 15GM BTL EXT PRN (15:58)
--- NOTE | 2023-01-12 18:44 | Hospitalist Progress Note ---
Date of Service January 12, 2023 Assessment & Plan (1) Fall from standing: Plan: Recurrent mechanical falls-CT head/cervical spine negative. With Right anterior 8th rib fracture with mild pain. Hematoma left buttock/lateral thigh-hgb stable again Due to combination of Parkinson disease, residual stroke effect, diabetic peripheral neuropathy, generalized weakness, and possibly UTI Patient fortunately has not had any hip fractures or other bone fractures yet PT/OT recommends rehab--> referrals placed but now pt requesting to go home with increased caregiver support-she will d/w CM and family Parkinson's disease and dementia- Continue amantadine, carbidopa levodopa Has appt with [facility] next week Diabetes/diabetic peripheral neuropathy- Continue NovoLog SSI Atrial fibrillation- Continue Xarelto UTI-Ur cx growing Klebsiella. Had dysuria prior to fall started ceftriaxone and improving--> convert to Augmentin to finish out 7 day course Dispo-rehab referrals placed, medically stable for discharge, but now she desires to go home-will d/w CM and family tomorrow. I strongly encouraged rehab but she poignantly pointed out that even at rehabs and AL, she has fallen numerous times (2) Contusion of elbow, left: (3) GERD (gastroesophageal reflux disease): (4) Paroxysmal A-fib: (5) Parkinson's disease dementia: (6) A-fib: (7) Closed head injury: (8) Diabetic peripheral neuropathy: (9) Diabetes type 2, uncontrolled: (10) Ambulatory dysfunction: (11) Generalized weakness: (12) Traumatic hematoma of buttock: (13) UTI (urinary tract infection): Admission and Anticipated Discharge Date Admission Date: January 10, 2023 Subjective Pt reports feeling fine, no pain. Is requesting to go home with increased care givers rather than going to rehab. She will discuss this with her sons and the case hardener and see what can be arranged. Physical Exam Constitutional: WD/WN, vitals as above Neck: trachea midline, no thyromegaly Respiratory: normal respiratory effort, lungs clear to auscultation Cardiovascular: Rate/Rhythm: regular rate and + irregularly irregular Heart Sounds: no murmur Extremities: no edema Chest (Breasts): Breast: + abnormal inspection of breast (left medial breast with ecchymosis) Gastrointestinal (Abdomen): normal bowel sounds, soft, nontender, no hepatosplenomegaly Musculoskeletal: Extremities: no cyanosis and no clubbing Skin: Trauma: + hematoma (left lateral thigh, 10 cm) Neurologic: moves all extremities and awake; no focal motor deficits Psychiatric: A+Ox3, euthymic affect Lymphatic: no lymphedema Results & Data Results & Data Vital Signs (Past 12 Hours) Vital Signs Temp Pulse Resp BP BP Pulse Ox O2 Del Method 01/12/23 14:14 36.7 C 75 18 169/76 H 99 Room Air 01/12/23 07:02 36.7 C 70 16 159/79 H 98 Room Air Laboratory Results CBC, BMP, mag, phos reviewed Ur cx with pansensitive Klebsiella pneumoniae PG Care Time/CCT Total # of Minutes Spent Total Time Spent with Patient: Total time spent is greater than 50% in coordination of care (as documented) at patient's floor/unit and/or counseling patient: Coding Level of Care Code 90012 SUB INP/OBS CARE 07/15MIN Diagnoses Fall from standing W19.XXXA Contusion of elbow, left S50.02XA GERD (gastroesophageal reflux disease) K21.9 Paroxysmal A-fib I48.0 Parkinson's disease dementia G20; F02.80 A-fib I48.91 Closed head injury S09.90XA Encounter type: initial encounter Diabetic peripheral neuropathy E11.42 Diabetes type 2, uncontrolled E11.65 Ambulatory dysfunction R26.2 Generalized weakness R53.1 Traumatic hematoma of buttock S30.0XXA Encounter type: initial encounter UTI (urinary tract infection) N39.0 Hematuria presence: without hematuria Urinary tract infection type: site unspecified (7) Closed head injury Encounter type: initial encounter Qualified Code(s): S09.90XA - Unspecified injury of head, initial encounter (12) Traumatic hematoma of buttock Encounter type: initial encounter Qualified Code(s): S30.0XXA - Contusion of lower back and pelvis, initial encounter (13) UTI (urinary tract infection) Hematuria presence: without hematuria Urinary tract infection type: site unspecified Qualified Code(s): N39.0 - Urinary tract infection, site not specified
[2023-01-12] MEDS: LORazepam 0.5 MG TAB PO PRN (21:17)
[2023-01-12] MEDS: RIVAROXABAN 20 MG TAB PO SCH (21:21)
[2023-01-13] MEDS: CARBIDOPA/LEVODOPA 25/100MG TAB PO SCH ×4 (06:28→20:08)
[2023-01-13] MEDS: INSULIN ASPART PER UNIT CHARGE SC SCH ×4 (08:51→21:19)
[2023-01-13] MEDS: LANTUS PER UNIT CHARGE SC SCH (08:51)
[2023-01-13] MEDS: AMANTADINE HCL 100 MG CAPSULE PO SCH ×2 (08:52→20:10)
[2023-01-13] MEDS: CETIRIZINE HCL 10 MG TABLET PO SCH (08:52)
[2023-01-13] MEDS: AMOXICILLIN/CLAVULANATE 875 MG TAB PO SCH ×2 (08:52→15:59)
[2023-01-13] MEDS: CLOPIDOGREL BISULFATE 75 MG TAB PO SCH (08:52)
[2023-01-13] MEDS: FLUoxetine HCL 20 MG CAP PO SCH (08:52)
[2023-01-13] MEDS: NYSTATIN POWDER 15GM BTL EXT PRN ×2 (08:53→20:23)
--- NOTE | 2023-01-13 09:40 | Pharmacy Report ---
Pharmacy Glycemic Short Note 2 - Date of Service January 13, 2023 - Glycemic Short BSG Results (Last 24 hours): 01/12/23 01/12/23 01/12/23 11:57 17:06 20:27 POC Glucose 279 H 152 H 216 H 01/13/23 07:59 POC Glucose 208 H OUTPATIENT ANTIDIABETIC REGIMEN: * Humalog pump with following rates: 0.35 units/hr (8 units/day) CF 35 CR 7 ASSESSMENT: 01/13/23 * Patient received 35 units of insulin yesterday, 5 units basal, most blood sugars above goal, will tighten CR slightly at this time. * UTI improving on IV ceftriaxone, transitioned to PO Augmentin. 01/11/23 * Ms Ramirez is a 77 y/o F with a PMH of T2DM on insulin pump who presents s/p fall. Patient's insulin pump was removed around 1030 TODAY. * When patient was admitted on 01/10, her blood sugars were extremely elevated ( 504, 256) but rapidly decreased with correction. * BSGs today are 86-79 mg/dL. * Will give Lantus 5 units with dinner if BSGs trend greater than 120 mg/dL. * NovoLog CF 30 CR 8 which are similar to outpatient setting. PLAN FOR INPATIENT GLYCEMIC CONTROL: * Basal insulin * Lantus 5 units SQ Daily * Bolus insulin * NovoLog per scale ACHS or Q6hrs while NPO * Goal Range: Low 110 mg/dL - High 140 mg/dL * Correction Factor: 25 mg/dL/unit * Nutritional / Prandial insulin per carb ratio of 1 unit per 8 grams CHO consumed
--- NOTE | 2023-01-13 14:14 | Hospitalist Progress Note ---
Date of Service January 13, 2023 Assessment & Plan (1) Fall from standing: Plan: Recurrent mechanical falls-CT head/cervical spine negative. With Right anterior 8th rib fracture with mild pain. Hematoma left buttock/lateral thigh and left breast-hgb stable Due to combination of Parkinson disease, residual stroke effect, diabetic peripheral neuropathy, generalized weakness, and possibly UTI Patient fortunately has not had any hip fractures or other bone fractures yet PT/OT recommends rehab--> referrals placed but now pt requesting to go home with increased caregiver support- d/w CM and family and son agreeable--> increasing caregivers and plan for discharge to home on Parkinson's disease and dementia- Continue amantadine, carbidopa levodopa Has appt with [facility] next week Diabetes/diabetic peripheral neuropathy- Continue NovoLog SSI and Lantus to be increased today for elevated glucose- Pharmacy managing Atrial fibrillation- Continue Xarelto--> discussed risk/benefit given multipl efalls but she and her Drop Wire Aliner have discussed as well. She prefers to stay on it to prevent stroke UTI-Ur cx growing Klebsiella. Had dysuria prior to fall started ceftriaxone and improving--> converted to Augmentin to finish out 7 day course-last day of tx will be 01/16 Dispo-rehab referrals placed, medically stable for discharge, but now she desires to go home. I strongly encouraged rehab but she poignantly pointed out that even at rehabs and AL, she has fallen numerous times Plan now is fo rhome with increased hours per day of caregivers. Son is working this out but needs until tomorrow to get in place. Plan for discharge to home w [facility] home health and personal caregivers on (2) Contusion of elbow, left: (3) GERD (gastroesophageal reflux disease): (4) Paroxysmal A-fib: (5) Parkinson's disease dementia: (6) A-fib: (7) Closed head injury: (8) Diabetic peripheral neuropathy: (9) Diabetes type 2, uncontrolled: (10) Ambulatory dysfunction: (11) Generalized weakness: (12) Traumatic hematoma of buttock: (13) UTI (urinary tract infection): Admission and Anticipated Discharge Date Admission Date: January 12, 2023 Anticipated date of discharge: 01/14/23 Subjective No complaints except di dhave some dizziness this AM when blood glucose was high for her in the 200s, resolved by lunchtime. She is very happy to hear she is going home with increased caregivers rather than rehab. Son working on increasing caregivers but needs extra time-requesting discharge tomorrow Physical Exam Constitutional: WD/WN, vitals as above ENMT: left forehead with green ecchymosis and hematoma Neck: trachea midline, no thyromegaly Respiratory: normal respiratory effort, lungs clear to auscultation Cardiovascular: Rate/Rhythm: regular rate and + irregularly irregular Heart Sounds: no murmur Extremities: no edema Gastrointestinal (Abdomen): normal bowel sounds, soft, nontender, no hepatosplenomegaly Musculoskeletal: Extremities: no cyanosis and no clubbing Neurologic: moves all extremities and awake; no focal motor deficits Psychiatric: A+Ox3, euthymic affect Lymphatic: no lymphedema Results & Data Results & Data Vital Signs (Past 12 Hours) Vital Signs Temp Pulse Resp BP Pulse Ox O2 Del Method 01/13/23 07:27 Room Air 01/13/23 07:15 36.8 C 60 16 134/65 98 Room Air Laboratory Results no labs PG Care Time/CCT Total # of Minutes Spent Total Time Spent with Patient: Total time spent is greater than 50% in coordination of care (as documented) at patient's floor/unit and/or counseling patient: Coding Level of Care Code 99099 SUB INP/OBS CARE 07/15MIN Diagnoses Fall from standing W19.XXXA Contusion of elbow, left S50.02XA GERD (gastroesophageal reflux disease) K21.9 Paroxysmal A-fib I48.0 Parkinson's disease dementia G20; F02.80 A-fib I48.91 Closed head injury S09.90XA Encounter type: initial encounter Diabetic peripheral neuropathy E11.42 Diabetes type 2, uncontrolled E11.65 Ambulatory dysfunction R26.2 Generalized weakness R53.1 Traumatic hematoma of buttock S30.0XXA Encounter type: initial encounter UTI (urinary tract infection) N39.0 Hematuria presence: without hematuria Urinary tract infection type: site unspecified (7) Closed head injury Encounter type: initial encounter Qualified Code(s): S09.90XA - Unspecified injury of head, initial encounter (12) Traumatic hematoma of buttock Encounter type: initial encounter Qualified Code(s): S30.0XXA - Contusion of lower back and pelvis, initial encounter (13) UTI (urinary tract infection) Hematuria presence: without hematuria Urinary tract infection type: site unspecified Qualified Code(s): N39.0 - Urinary tract infection, site not specified
[2023-01-13] MEDS: LORazepam 0.5 MG TAB PO PRN (20:07)
[2023-01-13] MEDS: RIVAROXABAN 20 MG TAB PO SCH (20:11)
[2023-01-14] MEDS: ACETAMINOPHEN 325 MG TAB PO PRN (05:52)
[2023-01-14] MEDS: CARBIDOPA/LEVODOPA 25/100MG TAB PO SCH ×2 (06:45→12:28)
[2023-01-14] MEDS: AMOXICILLIN/CLAVULANATE 875 MG TAB PO SCH (08:30)
[2023-01-14] MEDS: CLOPIDOGREL BISULFATE 75 MG TAB PO SCH (08:30)
[2023-01-14] MEDS: FLUoxetine HCL 20 MG CAP PO SCH (08:30)
[2023-01-14] MEDS: CETIRIZINE HCL 10 MG TABLET PO SCH (08:31)
[2023-01-14] MEDS: AMANTADINE HCL 100 MG CAPSULE PO SCH (08:31)
[2023-01-14] MEDS: INSULIN ASPART PER UNIT CHARGE SC SCH ×2 (08:43→12:31)
[2023-01-14] MEDS ORDERED: LANTUS PER UNIT CHARGE SC SCH (09:00)
--- NOTE | 2023-01-14 13:12 | Discharge Summary ---
Date of Service January 14, 2023 Admission HPI Per Admitting Provider The patient is a 77-year-old female with a past medical history including recurrent falls, Parkinson's, CVA, atrial flutter, PAF, GERD, slurred speech, CHF, UTI, pneumonia, closed head injury, SNHL bilaterally, nonproliferative diabetic retinopathy, diabetes mellitus, anxiety, hyperlipidemia, generalized weakness and ambulatory dysfunction. The patient has had to seek medical care several times in the previous months: 05/23-06/03/2022, 08/16-08/20/2022, 09/04-09/14/2022, 11/13-11/14/2022. Emergency department visits on 12/24 and 01/06/2023. She presents to the emergency department today after a fall earlier today, which she attributes to ambulatory dysfunction associated with Parkinson's and recent stroke. She did also hit the left frontal area of her head as well Principal Diagnosis fall from standing Discharge Exam Constitutional: WD/WN, vitals as above ENMT: left forehead with green ecchymosis and hematoma Neck: trachea midline, no thyromegaly Respiratory: normal respiratory effort, lungs clear to auscultation Cardiovascular: Rate/Rhythm: regular rate and + irregularly irregular Heart Sounds: no murmur Extremities: no edema Gastrointestinal (Abdomen): normal bowel sounds, soft, nontender, no hepatosplenomegaly Musculoskeletal: Extremities: no cyanosis and no clubbing Neurologic: moves all extremities and awake; no focal motor deficits Psychiatric: A+Ox3, euthymic affect Lymphatic: no lymphedema Discharge Data Allergies Allergy/AdvReac Type Severity Reaction Status Date / Time benztropine Allergy Unknown PT NOT SURE Verified 01/10/23 20:13 citalopram Allergy Unknown PT NOT SURE Verified 01/10/23 20:13 doxycycline Allergy Unknown REMOTE HX, Verified 01/10/23 20:13 PT NOT SURE REACTION minocycline Allergy Unknown REMOTE HX, Verified 01/10/23 20:13 PT NOT SURE REACTION simvastatin Allergy Unknown PT NOT SURE Verified 01/10/23 20:13 sulindac Allergy Unknown PT NOT SURE Verified 01/10/23 20:13 empagliflozin AdvReac Intermediate Recurrent Verified 01/10/23 20:13 [From Jardiance] Urinary Tract Infection Consultations 01/10/23 19:42 ED Decision to Admit Stat Ordered Studies 01/10/23 18:10 CT abd pelvis IV con only Stat CT cervical spine wo con Stat CT head/brain wo con Stat Hospital Course (1) Fall from standing: Recurrent mechanical falls-CT head/cervical spine negative. With Right anterior 8th rib fracture with mild pain. Hematoma left buttock/lateral thigh and left breast-hgb stable Due to combination of Parkinson disease, residual stroke effect, diabetic peripheral neuropathy, generalized weakness, and possibly UTI Patient fortunately has not had any hip fractures or other bone fractures yet PT/OT recommends rehab--> referrals placed but now pt requesting to go home with increased caregiver support- d/w CM and family and son agreeable--> increasing caregivers and plan for discharge to home Parkinson's disease and dementia- Continue amantadine, carbidopa levodopa Has appt with [facility] next week Diabetes/diabetic peripheral neuropathy- Continue NovoLog SSI and Lantus to be increased today for elevated glucose- Pharmacy managing Atrial fibrillation- Continue Xarelto--> discussed risk/benefit given multipl efalls but she and her Business Management Professor have discussed as well. She prefers to stay on it to prevent stroke UTI-Ur cx growing Klebsiella. Had dysuria prior to fall started ceftriaxone and improving--> converted to Augmentin to finish out 7 day course-last day of tx will be 01/16 Chronic diastolic CHF no acute issues Dispo-rehab referrals placed, medically stable for discharge, but now she desires to go home. She was strongly encouraged rehab but she poignantly pointed out that even at rehabs and AL, she has fallen numerous times Plan now is for home with increased hours per day of caregivers. Plan for discharge to home with home health and personal caregivers on 01/14/23 (2) Contusion of elbow, left: (3) GERD (gastroesophageal reflux disease): (4) Paroxysmal A-fib: (5) Parkinson's disease dementia: (6) A-fib: (7) Closed head injury: (8) Diabetic peripheral neuropathy: (9) Diabetes type 2, uncontrolled: (10) Ambulatory dysfunction: (11) Generalized weakness: (12) Traumatic hematoma of buttock: (13) UTI (urinary tract infection): Total Time Total Time Spent Total Time Spent (In Minutes): 35 Discharge Plan Discharge Items Patient Disposition: Home - Home Health Services Reason For Visit: FALL, UTI Discharge Diagnosis: Fall, UTI Activity: Resume your previous activity Non-emergency contact: Primary Care Provider Call non-emergency contact if: you have any medication questions Follow-up/Referrals: Celio,PERFECTO Hendricks CDE [Nurse Practitioner] - 01/18/23 1:00 pm Damaris Vega MD [Primary Care Provider] - 01/25/23 3:25 pm (follow up is made with Dr Munoz at the [facility] on Jan 25, 2023 at 3:25 pm.) Diet: Carb Consistent or DM2 Addtl Attending Provider Instructions: recommend followup with PCP in 1-2 weeks Pending Studies at Discharge: No Stand-Alone Forms: My [employer], Smoking Cessation Medications and DC Order Prescriptions: New amoxicillin-pot clavulanate 875-125 mg Tablet 1 tab PO BIDM Qty: 6 0RF Rx Instructions: start first dose tonight 01/14 PM after dinner Continued (DME) insulin syringe-needle U-100 [BD Insulin Syringe Ultra-Fine] 1 mL 31 gauge x 5/16 syringe See Rx Instructions .Route Qty: 300 3RF Rx Instructions: use to inject insulin three times a day (DME) FreeStyle Ruben 2 Sensor Kit See Rx Instructions .ROUTE .MEDSUPPLY Qty: 1 Rx Instructions: As directed amantadine HCl 100 mg capsule 100 mg PO [facility]HS (DME) OneTouch Verio test strips Strip See Rx Instructions .ROUTE .MEDSUPPLY Qty: 10 Rx Instructions: Test blood sugar once daily PRN lorazepam 0.5 mg tablet 0.5 mg PO BID PRN (Reason: Anxiety) Xarelto 20 mg tablet 20 mg PO QPM carbidopa-levodopa 25-100 mg tablet 2 tab PO QID Rx Instructions: TAKES AT 0700, 1100, 1600, 2000 clopidogrel [Plavix] 75 mg Tablet 75 mg PO DAILY acetaminophen [Tylenol] 325 mg Tablet 650 mg PO Q4H PRN (Reason: Pain (Scale Score 1-3)) amoxicillin 500 mg tablet 2,000 mg PO DIRECTED PRN (Reason: PRIOR TO DENTAL APPOINTMENTS) cetirizine [Zyrtec] 10 mg Tablet 10 mg PO DAILY insulin lispro [Humalog U-100 Insulin] 100 unit/mL solution 0 sliding scale dose continuous subcutaneous infusion CONTINOUS fluoxetine 20 mg capsule 20 mg PO DAILY Discharge Orders: Discharge Order (Routine); Ordered 01/14/23 Ordered By: Geoffrey Johnson/Other Patient Handouts: Managing Type 2 Diabetes, Preventing Falls in the Home, Exercises to Prevent Falls Admission Data Admit Date/Time: 01/12/23 18:44 Attending Provider: Geoffrey Castro Admit Provider: Dani Lopez Primary Care Provider: Damaris Vega Other Providers: [facility] ; [facility] ; [facility] ; [place] ; Dani Lopez Other Interventions: Discharge Summary Assessment (RN) Last Done: 01/14/23 13:46 Coding Level of Care Code 36661 INP/OBS DISCH >30 MIN Diagnoses Fall from standing W19.XXXA Contusion of elbow, left S50.02XA GERD (gastroesophageal reflux disease) K21.9 Paroxysmal A-fib I48.0 Parkinson's disease dementia G20; F02.80 A-fib I48.91 Closed head injury S09.90XA Encounter type: initial encounter Diabetic peripheral neuropathy E11.42 Diabetes type 2, uncontrolled E11.65 Ambulatory dysfunction R26.2 Generalized weakness R53.1 Traumatic hematoma of buttock S30.0XXA Encounter type: initial encounter UTI (urinary tract infection) N39.0 Hematuria presence: without hematuria Urinary tract infection type: site unspecified
== END 2023-01-14 14:39 | disposition home health service (06) ==
LOC: 2N 17:35 → ED 17:35 → SUATTDRO 20:33 → 2N 22:54 → 3W 01-11 22:44 → SUATTDRO 01-12 18:44

== ENCOUNTER 2023-08-01 09:33 | Observation (INO) ==
--- OUTSIDE RECORDS SUMMARY | 2023-08-01 09:38 | External Medical Summary | Continuity of Care Document ---
Author Name Unknown Organization [address] [place] [phone] Care Team Providers Care Lead Enterprise Architect Name Role Phone Damaris Vega Primary Care Physician [phone] Encounter [facility] [id number] Date(s): 07/27/23 - 07/27/23 [facility] [address] [facility] [address] [facility] [address] [facility] [address] [place] [address] [phone] Encounter Diagnosis Generalized weakness(Discharge Diagnosis) - 07/27/23 Multiple falls(Discharge Diagnosis) - 07/27/23 Traumatic fracture of ribs with pneumothorax.(Discharge Diagnosis) - 07/27/23 Discharge Disposition: Home or Self Care Attending Physician: MD Quan, Chandra B Allergies, Adverse Reactions, Alerts Substance Reaction Severity Status sulindac unknown Active Jardiance UTI - Urinary tract infection Mild Active doxycycline LOYA, nausea Active minocycline LOYA, nausea Active Celexa Unknown Active Assessment and Plan Extracted from: Title:Office Visit Note Author:MD Kalen, Wasiq Date:07/27/23 1.Generalized weakness -Pt has generalized weakness in setting of chronic deconditioning and recent falls resulting in rib fractures and pneumothorax with prolonged hospitalization -Does have home PT/OT/nursing but almost assuredly needs further home health services/aide given her safety risk of living alone -Medication list reviewed- no adjustments made as none of her current medications are likely to be contributing to her weakness + fall risk -Care management referral placed with requested coordination with Office of Aging -F/u with PCP scheduled next month 08/23 2.Multiple falls -Multiple falls secondary to generalized weakness + chronic deconditioning as above -Pt is very high fall risk. These falls do appear mechanical in nature -Xarelto should be continued for atrial fibrillation and previous CVA history despite falls -Discussed need for XR imaging of hip/pelvis if continued falls or development of pain along buttocks -She does have fall alert measures at home -Rest as above 3.Traumatic fracture of ribs with pneumothorax. Acute w/ systemic symptoms or complicated injury Goal:Resolution Data:Lizeth recordsreviewed _ Plan: -Symptomatically clear with no further pain or dyspnea -Deferring repeat CXR for now -Continue to monitor, though with fall risk as above- there is concern for more rib fractures from fall trauma Immunizations Given and Recorded Vaccine Date Status Refusal Reason influenza virus vaccine, inactivated 1 04/29/22 Gi tania influenza virus vaccine, inactivated 03/10/21 Give n influenza virus vaccine, inactivated 04/18/18 Give n influenza virus vaccine, inactivated 03/16/17 Give n influenza virus vaccine, inactivated 04/01/16 Give n influenza virus vaccine, inactivated 05/29/15 Give n SARS-CoV-2 (COVID-19) mRNA BNT-162b2 vax 2 08/14/20 Recorded SARS-CoV-2 (COVID-19) mRNA BNT-162b2 vax 3 07/24/20 Recorded pneumococcal 23-valent vaccine 08/18/16 Given pneumococcal 13-valent vaccine 01/15/15 Given zoster vaccine live 02/16/13 Recorded tetanus/diphtheria/pertuss, acel (Tdap) 06/07/12 G iven 1Early/Late Reason: Early/Late Reason: Other : unable to document in real time 2Result Comment: 2021-02-12: Historical information-source unspecified 3Result Comment: 2021-02-12: Historical information-source unspecified Medications amantadine 100 mg oral capsule Start: 07/09/22 11:30:00 EST, 1 cap, PO, Daily, Disp# 90 cap, Refills: 1, Pharmacy: [facility] Start Date: 07/09/22 Status: Ordered atorvastatin 20 mg oral tablet Start: 05/03/23 16:47:00 EST, 1 tab, PO, qhs, Disp# 30 tab, Refills: 3, Pharmacy: [facility] Start Date: 05/03/23 Status: Ordered BD Test Strips 50 ct Start: 02/28/20 10:56:00 EDT, See Instructions, Disp# 50 each, one touch verio test strips E11.9, Pharmacy: [facility]229, 161.4, cm, 05/01/19 10:53:00 EST, Height Start Date: 02/28/20 Status: Ordered Bumex 1 mg oral tablet Start: 12/19/21 12:51:00 EDT, See Instructions, Disp# 90 tab, Refills: 3, taking 1/2 tab PRN 3 x a week, Pharmacy: [facility] Start Date: 12/19/21 Status: Ordered clopidogrel 75 mg oral tablet Start: 09/10/22 13:34:00 EDT, 1 tab, PO, Daily Start Date: 09/10/22 Status: Ordered diclofenac 1% topical gel Start: 02/13/20 14:10:00 EDT, 1 appl, topical, qid, Disp# 100 g, Refills: 2, not to exceed 16 grams/day/single joint of lower extremities, PRN: Pain, Pharmacy: [facility] 2229, 161.4, cm, 05/01/19 10:53:00 EST, Height Start Date: 02/13/20 Status: Ordered Dulcolax Laxative (vegetable base) 10 mg rectal suppository Start: 06/25/23 12:38:00 EST, 1 supp, [place], Daily Start Date: 06/25/23 Status: Ordered Flonase Sensimist 27.5 mcg/inh nasal spray Start: 05/01/19 10:47:00 EST, 27.5 mcg =, intranasal, Daily, in each nostril Start Date: 05/01/19 Status: Ordered FLUoxetine 20 mg oral capsule Start: 12/15/22 13:24:00 EDT, 1 cap, PO, Daily, Disp# 30 cap, Refills: 5, Pharmacy: [facility] Start Date: 12/15/22 Status: Ordered glucometer Start: 02/28/20 10:54:00 EDT, See Instructions, Disp# 1 each, One touch verio reflect ICD 10 code Diabetes E11.9, Pharmacy: [facility] 2229, 161.4, cm, 05/01/19 10:53:00 EST, Height Start Date: 02/28/20 Status: Ordered glucometer Start: 02/28/20 14:04:00 EDT, See Instructions, Disp# 1 each, one touch flex glucometer test QAM, QHS DM II uncomplicated E11.9, Pharmacy: [facility] 2230, 161.4, cm, 05/01/19 10:53:00 EST, Height Start Date: 02/28/20 Status: Ordered glucose test strips Start: 02/28/20 14:07:00 EDT, See Instructions, Disp# 60 strip, Refills: 3, one touch flex QHS QAM DM II E11.9, Pharmacy: [facility] 2230, 161.4, cm, 05/01/19 10:53:00 EST, Height Start Date: 02/28/20 Status: Ordered HumaLOG Vial 100 units/mL injectable solution Start: 07/04/23 11:43:00 EST, 4 unit =, subQ, Before lunch, Not for BGL <165 Start Date: 07/04/23 Status: Ordered HumaLOG Vial 100 units/mL injectable solution Start: 06/25/23 12:38:00 EST, 8 unit =, subQ, ac, Not for bgl <165 Start Date: 06/25/23 Status: Ordered HumaLOG Vial 100 units/mL injectable solution Start: 07/04/23 11:43:00 EST, 6 unit =, subQ, Before dinner, Not for BGL <165 Start Date: 07/04/23 Status: Ordered insulin lispro Start: 06/25/23 12:38:00 EST, SSI, subQ, ac and hs Start Date: 06/25/23 Status: Ordered lancets Start: 02/28/20 14:06:00 EDT, See Instructions, Disp# 60 lancet, Refills: 3, one touch flex QAM QHSDM II E11.9, Pharmacy: [facility] 2230, 161.4, cm, 05/01/19 10:53:00 EST, Height Start Date: 02/28/20 Status: Ordered Lantus Vial 100 units/mL subcutaneous solution Start: 06/25/23 12:38:00 EST, 22 unit =, subQ, qhs Start Date: 06/25/23 Status: Ordered Melatonin Start: 06/25/23 12:38:00 EST, 5 mg =, PO, qhs, PRN: Insomnia Start Date: 06/25/23 Status: Ordered miconazole 2% topical powder Start: 06/25/23 12:38:00 EST, 1 appl, topical, bid Start Date: 06/25/23 Status: Ordered Milk of Magnesia Start: 06/25/23 12:38:00 EST, 15 mL, PO, tid Start Date: 06/25/23 Status: Ordered One Touch Ultra Test Strips 100 ct Start: 11/11/15 15:21:00, See Instructions, Disp# 300 each, Refills: 3, Check TID, Dx E11.9, Pharmacy: [facility] Start Date: 11/11/15 Status: Ordered pantoprazole Start: 06/25/23 12:38:00 EST, 20 mg =, PO, Daily Start Date: 06/25/23 Status: Ordered Senna S Start: 06/25/23 12:38:00 EST, 2 tab, PO, bid Start Date: 06/25/23 Status: Ordered Sinemet 25 mg-100 mg oral tablet Start: 07/09/22 11:30:00 EST, 2 tab, PO, qid, Disp# 240 tab, Refills: 1, 0700, 1100, 1600, 2000, Pharmacy: [facility] Start Date: 07/09/22 Status: Ordered Tylenol 325 mg oral tablet Start: 06/25/23 12:38:00 EST, 2 tab, PO, q8h Start Date: 06/25/23 Status: Ordered Mental Status 07/27/23 Barriers to Learning one year Hearing de ficit Mandatory Health Literacy Documentation Yes Health Literacy Communication Barriers N ever Primary Language Bulgarian Problem List Condition Confirmation Course Effective Dates Status H ealth Status Informant Accidental fall Confirmed Active Acoustic neuroma Confirmed Active Acute renal failure syndrome Confirmed Active Allergic rhinitis Confirmed Active Amaurosis fugax Confirmed Active Anxiety Confirmed Active Afib Confirmed Active Bilateral carotid artery stenosis Confirmed Active Bursitis of right hip Confirmed Active Chronic headache Confirmed Active Chronic heart failure Confirmed Active Chronic insomnia Confirmed Active 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 Confirmed Active Orthostasis Confirmed Active Lower leg edema Confirmed Active Right foot pain Confirmed Active GERD Confirmed Active S/P total knee replacement 2 Confirmed Active Hip pain, right Confirmed Active Hypertensive heart disease without HF (heart failure) Confirmed Active Insomnia Confirmed Active Knee pain, left Confirmed Active Acquired lymphedema Confirmed Active Chronic migraine Confirmed Active Morbid obesity 3 Confirmed Active Neuropathy 4 Confirmed Active Osteoarthritis of knee Confirmed Active Parkinson's disease Confirmed Active Peripheral vascular disease, unspecified Confirmed Active Sciatic pain Confirmed Active Seborrhea Confirmed Active Internal carotid artery stent present Confirmed Active Tremor, essential Confirmed Active Ambulatory dysfunction Confirmed Active Loss of weight Confirmed Active 1See outside note 07/22/22 [facility] Diabetes visit 07/21/22 2left 3BMI >35 with DM, HTN, Heart Failure 4feet Diagnosis Diagnosis Type Effective Dates Health Status Clinical Service Informant Generalized weakness Discharge Diagnosis 07/27/23 Multiple falls Discharge Diagnosis 07/27/23 Traumatic fracture of ribs with pneumothorax. Discharge Diagnosis 07/27/23 Procedures Procedure Date Related Diagnosis Body Site Status Diagnostic mammogram 1 01/08/23 Co mpleted Diabetic eye disease 2 11/30/22 Co mpleted left TCAR 08/26/22 Completed Mammogram 3 04/24/22 Completed Diagnostic mammogram 4 10/29/21 Co mpleted Ultrasound scan of soft tiss ue of head and neck 5 08/21/21 Completed Chest x-ray 6 05/21/[address] of cervical spine 7 05/21/[address] of head without contrast 8 05/21/21 Completed Plain x-ray of pelvis 9 05/21/21 C ompleted Mammogram 10 04/30/21 Completed Mammogram 11, 12 04/23/21 Complete d Cataracts 13 10/30/20 Completed Hip X-ray 14 03/06/20 Completed Echocardiogram 15 02/17/[address] angiogram of head, neck a nd thorax 16 02/16/20 Completed MRI of brain 17 02/16/20 Completed Chest x-ray 18 10/11/[address] of cervical spine 19 10/11/[address] of head without contrast 20 10/11/19 Completed Chest x-ray 21 08/29/19 Completed Colonoscopy 22 12/15/18 Completed Diagnostic mammogram 23 12/08/18 C ompleted Echocardiogram 24 11/05/18 [facility] ed [facility] of face 25 11/04/[address] of head 26 11/04/[address] of head 27 11/02/18 Completed Diagnostic mammogram 28 05/03/18 C ompleted Ultrasonography of soft tiss ue of head and neck 29 01/05/[address] of head 30 12/17/17 Completed Foot X-ray 31 11/17/17 Completed Biopsy of breast, left 32, 33 10/26/17 Completed Foot X-ray 34 10/20/17 Completed Foot X-ray 35 10/01/17 Completed Biopsy of breast 36 09/29/17 Compl eted Mammogram 37, 38, 39 09/29/17 Comp leted X-ray of right foot 40 09/21/17 Co mpleted X-ray of right knee 41 09/21/17 Co mpleted Diagnostic mammogram 42 09/15/17 C ompleted DIL RETINA EXAM INTERP REV 43 09/09/17 Completed Mammogram 44 09/01/17 Completed MRI of brain abnormal 45 12/04/16 Completed CXR - Chest X-ray 46 12/03/16 Comp leted DEXA - Dual energy X-ray magdaleno ton absorptiometry 47 11/23/16 Completed Cardiac echo 48 07/17/16 Completed Carotid artery doppler assessment 49 07/17/16 Completed Colonoscopy 50 09/10/14 Completed Colonoscopy 51 09/10/14 Completed Venous Duplex 52 10/02/12 Complete d Appendectomy Completed Bilateral tubal ligation Completed Bunionectomy Completed Cholecystectomy planned C ompleted Eye surgery 53 Completed left total knee replacement Completed PAP smear-cervical/endocervix [address] [place] [address] Impression: ACR BI-RADS Benign Impression: 1. Mixed echogenicity findings in the 9:00 breast. Mixed density focal asymmetry seen. No evidence of malignancy. Recommend clinical follow-up for left breast lump. Routine screening mammogram due 04/2023 2[facility] Impression 1. Diabetes type 2 with ocular complications, insulin dependent 2. Moderate nonproliferative dibaetic retinopathy OU 3. Diabetic macular edema OD (s/p Focal) 4. Diabetic macular edema OS (s/p Focal) 5. Choroidal nevus OD. Nevus looks stable, no change from photos and/or exam 6. Lamellar macular hole OD 7. Epiretinal membrane OD 3No mammographic evidence of malignancy. 1 year screening mammogram. 4Previously biopsied hypechoic mass in the elft 11:00 breast is decreased in size compared to the prior exam and yielded benign pathology results including fat necrosis at biopsy. Two adjacent similarappearing hypoechoic masses in the left 11:00 breast are stable compared to the prior 2020 exam and are benign give the morphology and stability and also likely represent oil cysts related to fate ncrosis. There is no mammographic or sonographic evidence of malignancy. Return to annual mammogram sreeningschedule. 5Impression: No change in the dominant right lobe thyroid nodule since ultrasound of January 05, 2018 6No acute cardiopulmonary disease. 7Osteopenia with no acute osseous pathology. Degenerative disc and degenerative joint disease. 8Evidence for a hemorrhagic contusion involving the right cerebellar hemisphere anteriorly. Cerebralcortical atrophy and remote small vessel disease are also seen. 9No acute abnormality. Osteopenia and osteoarthritis. 10IMPRESSION: ULTRASOUND GUIDED BIOPSY Status post left breast ultrasound-guided core biopsy of a 3.5 mm hypoechoic round mass in the areaof palpable concern within the left 11 o'clock breast, with ribbon-shaped biopsy marker placed at the site. The patient will receive notification of the biopsy results from her referring proivder. Pending benign results, a short interval follow-up left diagnostic tomosynthesis mammogram and repeat targetedultrasound is recommended. 111. Left breast ultrasound guided core biopsy is recommended for a small subcentimeter circumscribedhypoechoic mass in the area of palpable concern in the 11:00 left breast, 1cm from the nipple. Pending benign pathology results, a short interval ollow up targeted left breast ultrasound and left diangostic tomosnthesis mammogram is reocmmneded to assess stability of 2 other small subcentimeter masses, similar in appearance, also in the 11:00 left breast. 2. No mammographic evidence of malignancy in the right breast. Recommend routine screening mammography of the right breast in 1 year. surgical pathology:#1 Granular debris and fat necrosis. See Comment. #2 Negative for DCIS and invasive carcinoma. COMMENT: Sections reveal granular material with peripheral fat necrosis. Focal histiocytes are noted. No granular material may repreent necrotic tissue or cyst content. No DCIS or invasve carcinoma is identified. 13Right Eye Cataract with Intraocular Lens Implant 141. No fracture or dislocation within the pelvis or hips. 2. Mild to moderate osteoarthritis within the bilateral hips. 15The left ventricle is grossly normal size. There is mild concentric left ventricular hypertrophy. Left ventricular systolic function is normal. Ejection Fraction =60-65% The left ventricular wall motion is normal. The right ventricle is normal in size and function. Aortic valve sclerosis mild, without significant aortic valvular stenosis. Right ventricular systolic pressure is normal. Bubble study was completed there is no obvious right to left shunt. 161. There is no hemorrhage, mass effect, or evidence of acute territorial ischemia by CT criteria noting angiographic phase technique. 2. A 2.0 cm enhancing lesion in the right cerebellopontine angle has been seen on prior examinations and likely represents a meningioma versus acoustic schwannoma. 3. Unremarkable CT angiogram of the brain. 4. Unremarkable CT angiogram of the neck. 5. Intralobular septal thickening is noted in the upper lobes. Correlate cliically for evidence of congestive failure. 171. No acute intracranial abnormality. 2. A 2cm enhancing lesion in the right cerebellopontine angle is unchanged from prior examinations.This likely represents a meningioma versus acoustic schwannoma. 18[facility] Impression: 1. Cardiomegaly with mild volume overload. No jonathan pulmonary edema 19[facility] Impression: 1. No acute osseous injury of the cervical spine 2. Multilevel degenerative changes 20[facility] Impression: 1. No acute intracranial findings 2. No significant change in a right acoustic neuroma since MRI of December 26, 2018 [address] suboptimally assessed by CT 21[facility] Impression: 1. Cardiomegaly and pulmonary vascular congestion without overt pulmonary edema or airspace consolidation typical for pneumonia 22One 2mm polyp in the descending colon, removed with a cold snare. Resected and retrieved. One 2mm polyp in the rectum, removed with a cold snare. Resected and retrieved. Diverticulosis in the sigmoid colon. The colon was otherwise normal to the terminal ileum with retroflexed views of the ascending colon and rectum. Repeat colonoscopy in 3-5 years. 23Stable postsurgical changes in the left breast status post surgical excision of an atypical papilloma, without mammographic evidence of malignancy in either breast. 1 year screening mammogram is recommended. 24[facility] Impression: 1. Left ventricular systolic function is normal 2. No regional wall motion abnormalities noted 3. Eject fraction= 65-70% 4. There is moderate concentric left ventricular hypertrophy 5. There is mild mitral regurgitation 25[facility] Impression: 1. Limited soft tissue contusion over the right body of the mandible. No hematoma or subjacent osseous injury 26[facility] Impression: 1. No acute intracranial abnormality 27[facility] Impression: 1. No acute intracraninal findings 28Expected post surgical changes in the left breast, without mammographic evidence of malignancy. recommend another close follow up left diagnostic tomosynthesis mammogram and possible ultrasound in 6 months to ensure longer stability after surgery. 29Low suspicion pattern dominant nodule in the right lobe of the thyroid. This has slightly increasedin size since 2013. By the Cypriot thyroid associate cirteria, fine needle aspiration would be indicated though the slow rate of change is highly suggestive of a benign etiology. Continued US followup to be considered. 30No acute intracranial abnormality. Large left frontal scalp hematoma. 31Fracture as previously described considered unchanged. Degenerative change and heel spur also unchanged. 32[facility] 33path - fibrocystic changes, papillomatosis w/usual ductal hyperplasia, neg for CA 34Unchanging small avulsion base proximal phalanx third toe. Note is also made of a very tiny avulsion base proximal phalanx second toe which is present previously and appears to be unchanged. 351. There has been no significant change in the apperance of a nonobstructed fracture through the base of the third proximal phlanx as compared to 09/21/2017. 2. No new fracture is seen. 3. Osteopenia, hallux valgus, arthritis change, and heel spurs as above. 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 Pthology results are pending. 39Pathology reviewed. Showing atypical intraductal papilloma with associated microcalcification. Surgical excision recommended. Note that there was lateral migration of the biopsy clip from biopsy site. 401. There is a subtle nondistracted fracture at the base of the third proximal phalanx. 2. No additional fracture is identified. 3. Osteopenia with hallux valgus, arthritic change, and large heel spurs as above. 411. Moderately advanced osteoarthritic changes, most pronounced in the medial joint compartment and patellofemoral joint. 2. No acute fractures. 42There is a newly visualized 6 mm focal asymmetry with associated calcification in the 10:00 middle one third of the left breast mammographically, with possible sonographic correlate in the 10:00 axison ultrasound. However, given better visualization mammographically, would recommend stereotactic tomosynthesis guided biopsy with specimen radiography to ensure inclusion of the calcifications, for definitive characterization. The patient only currently takes Plavix. 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 These results and recommendations were discussed with the patient at the time of the exam. She tentatively scheduled the left breast stereotactic tomosynthesis biopsy prior to leaving the department. 43mod nonproliferative rtinopathy OU 44The 5mm focal asymmetry with possible associated calcification in the 10:00 left breast needs additional evaluation. 451. Slight increase in size of a right acoustic neuroma. 2. Mild atrophy. 3. Mild chronic small vessel change. 4. No evidence of an acute ischemic event. 46No acute cardiopulmonary findings. 47T-scores : spine 2.4; L femur neck -2.5; R femur neck -2.3; total femur -1.4 48nml LV size & function, EF 65%; no wall motiona abnormalities; mild-mod concentric LVH; grade II diastolic dysfunction; mild-mod MR, no change from 01/02 49No significant ICA stenosis; antegrade flow L vertebral; <50% obstruction of R subclavian; nml flow in L subclavian; homogenous plaque in Bilat. bulb & ICA; no change from 03/31 50Biopsies: 1) Colon, distal. transverse: an inflamed, fragmented, benign polyp with focal features consistent with a tubular adenoma is seen 2) high-grade dysplasia and carcinoma are not seen. 51polyp removed; await path 52[facility] [id number] 54[facility] Gynecological Cytology Report Negative for Intraepithellal lesion or malignancy. Vital Signs Most recent to oldest [Reference Range]: 1 Temperature [36.5-37.9 DegC] 36.9 DegC (07/27/23 1:14 PM) Heart Rate 80 bpm (07/27/23 1:14 PM) Respiratory Rate 16 br/min (07/27/23 1:14 PM) Blood Pressure 126/70mmHg (07/27/23 1:14 PM) Cuff Pulse Pressure 56 mmHg (07/27/23 1:14 PM) Social History Social History Type Response Smoking Status Never smoked cigaret garland Sex Female [facility] Outpt Note * MD Glass Mark B: MODIFY MD Glass Mark B: MODIFY, MODIFY Event Display: [facility] Outpt Note Authored Date: [id number] Chief Complaint follow up from hosp stay History of Present Illness 78 yo F with PMH pAF on Xarelto, CVA, multiple falls presenting for f/u. Pt admitted at [facility] from 06/14-07/07 for unwitnessed mechanical fall resulting in multiple L rib fractures and L pneumothorax. Had chest tube placed on 06/18 for hemothorax and removed on 06/20 after CXR demonstrated resolution. She did have a nerve block done to reduceher rib pain andhad oxycodone PRN while in hospital.Hematoma at left chest tube site formed but resolving with wound care. Discharged to [facility] for rehab on 06/27. She returned home on 07/22. She has had multiple mechanical falls recently- one last evening, one this morning, one this afternoon- attributes the falls to generalized weakness of her legs.She landedon her buttocks each time.She normally ambulates with a walker. Lives alone in a 1 story home with support from neighbors and her son lives 20 minutes away. She did start home PT yesterday and thisis going to be 2x per week. Home nurse also came on 07/23. She will start OT this week. Pt denies continued pain, still feels weak but this is slightly improving with home PT. Denies dyspnea, cough, chest pain. Review of Systems Per HPI Physical Exam Vitals & Measurements T:36.9C HR:80(Monitored) RR:16 BP:126/70 SpO2:98% PHQ2 Data(Data Documented on:07/27/2023 13:11) Emotional health assessment NEGATIVE General: tired-appearing, no acute distress, frail CV: RRR, normal S1, S2, no murmurs Resp: CTAB, unlabored respirations MSK/Neuro: reduced bulk of b/l LE, nontender around chest wall + costal margins, diffuse weakness of b/l LE and UE, unable to stand from wheelchair, no sensory deficit Assessment/Plan 1.Generalized weakness -Pt has generalized weakness in setting of chronic deconditioning and recent falls resulting in ribfractures and pneumothorax with prolonged hospitalization -Does have home PT/OT/nursing but almost assuredly needs further home health services/aide given her safety risk of living alone -Medication list reviewed- no adjustments made as none of her current medications are likely to be contributing to her weakness + fall risk -Care management referral placed with requested coordination with [facility] of A[facility] -F/u with PCP scheduled next month 08/23 2.Multiple falls -Multiple falls secondary to generalized weakness + chronic deconditioning as above -Pt is very high fall risk. These falls do appear mechanical in nature -Xarelto should be continued for atrial fibrillation and previous CVA history despite falls -Discussed need for XR imaging of hip/pelvis if continued falls or development of pain along buttocks -She does have fall alert measures at home -Rest as above 3.Traumatic fracture of ribs with pneumothorax. Acute w/ systemic symptoms or complicated injury Goal:Resolution Data:Lizeth recordsreviewed _ Plan: -Symptomatically clear with no further pain or dyspnea -Deferring repeat CXR for now -Continue to monitor, though with fall risk as above- there is concern for more rib fractures from fall trauma Attestation I saw the patient and confirmed the valencia portions of the history and physical exam and agree with the above impression and plan. Challenging social situation. will need to have ongoing conversations about fall risk and potentialplacement/home health.Makes informed decision to want to do this at home. Problem List/Past Medical History Ongoing Accidental fall Acoustic neuroma Acquired lymphedema Acute renal failure syndrome Afib Allergic rhinitis Amaurosis fugax Ambulatory dysfunction Anxiety Bilateral carotid artery stenosis Bursitis of right hip Chronic headache Chronic heart failure Chronic insomnia Chronic migraine Diabetes mellitus type 2 with neurological manifestations GERD Hip pain, right Hypertensive heart disease without HF (heart failure) Insomnia Internal carotid artery stent present Knee pain, left Loss of weight Lower leg edema Morbid obesity Neuropathy Orthostasis Osteoarthritis of knee Parkinson's disease Peripheral vascular disease, unspecified Right foot pain S/P total knee replacement Sciatic pain Seborrhea Tremor, essential Historical ABDOMINAL PAIN, GENERALIZED Accidental fall Acute allergic rhinitis Acute contact otitis externa of left ear Acute depression Acute frontal sinusitis Antibiotic-associated diarrhea Breast cancer screening by mammogram Breast lump Cellulitis of leg Cerumen impaction Contusion of knee Contusion of lower leg Eustachian tube dysfunction Fracture of 5th metatarsal Fracture of proximal phalanx of toe Hamstring strain HEADACHE Multiple open wounds of lower leg Pre-syncope Squeezing Chest Pain Procedure/Surgical History Diagnostic mammogram (01/08/2023)Diabetic eye disease (11/30/2022)left TCAR (08/26/2022)Mammogram (04/24/2022)Diagnostic mammogram (10/29/2021)Ultrasound scan of soft tissue of headand neck (08/21/2021)Plain x-ray of pelvis (05/21/2021)CT of cervical spine (05/21/2021)CTof head without contrast (05/21/2021)Chest x-ray (05/21/2021)Mammogram (04/30/2021)Mammogram (04/23/2021)Cataracts (10/30/2020)Hip X-ray (03/06/2020)Echocardiogram (02/17/2020)MRI of brain (02/16/2020)CT angiogram of head, neck and thorax (02/16/2020)CT of cervical spine (10/11/2019)Chest x-ray (10/11/2019)CT of head without contrast (10/11/2019)Chest x-ray (08/29/2019)Colonoscopy (12/15/2018)Diagnostic mammogram (12/08/2018)Echocardiogram (11/05/2018 )CT of face (11/04/2018)CT of head (11/04/2018)CT of head (11/02/2018)Diagnostic mammogram (05/03/2018)Ultrasonography of soft tissue of head and neck (01/05/2018)CT of head (12/17/2017)Foot X-ray (11/17/2017)Biopsy of breast, left (10/26/2017)Foot X-ray (10/20/2017)Foot X-ray (10/01/2017)Biopsy of breast (09/29/2017)Mammogram (09/29/2017)X-ray of right knee(09/21/2017)X-ray of right foot (09/21/2017)Diagnostic mammogram (09/15/2017)DIL RETINA EXAM INTERP REV (09/09/2017)Mammogram (09/01/2017)MRI of brain abnormal (12/04/2016)CXR - Chest X-ray (12/03/2016)DEXA - Dual energy X-ray photon absorptiometry (11/23/2016)Cardiac echo (2016)Carotid artery doppler assessment (2016)Colonoscopy (09/10/2014)Colonoscopy (09/10/2014)Venous Duplex (10/02/2012)left total knee replacementEye surgeryBunionectomyCholecystectomy plannedAppendectomyBilateral tubal ligationPAP smear-cervical/endocervix Medications acetaminophen(Tylenol 325 mg oral tablet), 650 mg= 2 tab, PO, q8h amantadine(amantadine 100 mg oral capsule), 100 mg= 1 cap, PO, Daily, 1 refills atorvastatin(atorvastatin 20 mg oral tablet), 20 mg= 1 tab, PO, qhs, 3 refills bisacodyl(Dulcolax Laxative (vegetable base) 10 mg rectal suppository), 10 mg= 1 supp, [place], Daily bumetanide(Bumex 1 mg oral tablet), See Instructions, 3 refills carbidopa-levodopa(Sinemet 25 mg-100 mg oral tablet), 2 tab, PO, qid, 1 refills clopidogrel(clopidogrel 75 mg oral tablet), 75 mg= 1 tab, PO, Daily diabetes supplies(glucometer), See Instructions diabetes supplies(BD Test Strips 50 ct), See Instructions diabetes supplies(glucometer), See Instructions diabetes supplies(lancets), See Instructions, 3 refills diabetes supplies(glucose test strips), See Instructions, 3 refills diabetic supplies(One Touch Ultra Test Strips 100 ct), See Instructions, 3 refills diclofenac topical(diclofenac 1% topical gel), 1 appl, topical, qid, PRN, 2 refills docusate-senna(Senna S), 2 tab, PO, bid FLUoxetine(FLUoxetine 20 mg oral capsule), 20 mg= 1 cap, PO, Daily, 5 refills fluticasone nasal(Flonase Sensimist 27.5 mcg/inh nasal spray), 27.5 mcg, intranasal, Daily insulin glargine(Lantus Vial 100 units/mL subcutaneous solution), 22 unit, subQ, qhs insulin lispro(HumaLOG Vial 100 units/mL injectable solution), 4 unit, subQ, Before lunch insulin lispro, SSI, subQ, ac and hs insulin lispro(HumaLOG Vial 100 units/mL injectable solution), 8 unit, subQ, ac insulin lispro(HumaLOG Vial 100 units/mL injectable solution), 6 unit, subQ, Before dinner magnesium hydroxide(Milk of Magnesia), 15 mL, PO, tid melatonin(Melatonin), 5 mg= 1 tab, PO, qhs, PRN miconazole topical(miconazole 2% topical powder), 1 appl, topical, bid pantoprazole, 20 mg= 1 tab, PO, Daily Allergies Jardiance (Mild)UTI - Urinary tract infection CelexaUnknown doxycyclineHA, nausea minocyclineHA, nausea sulindacunknown Social History Smoking Status Never smoked cigarettes Alcohol Use:Current Type:Wine Frequency:1-2 times per month Employment/School Status:Retired 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 Wears seatbelt. Avoids prolonged sun exposure. Nutrition/Health Type of diet:Regular Caffeine intake amount:Drinks 1 cup of coffee/day Other Details:Has not had a blood transfusion. No tattoos and has not been incarcerated. She did have negative HIV and hepatitis C testing in the past due to needle stick exposure. Sexual - No Sexual Activity Substance Abuse - Denies Substance Abuse Tobacco - Denies Tobacco Use Use:Never smoker Family History Cancer: Unknown. Cancer of colon: Brother. Colon cancer..: Mother. Diabetes: Mother. Heart Failure: Mother. Heart disease: Unknown. Pancreatic cancer......: Sister. Rheumatoid arthritis: Sister. Type II diabetes mellitus: Mother and Sister. Health Status Family Member(s) Father: History is negative Immunizations Vaccine Date Status influenza virus vaccine, inactivated 04/29/2022 Given Comments : Early/Late Reason: Other : unable to document in real time influenza virus vaccine, inactivated 03/10/2021 Given SARS-CoV-2 (COVID-19) mRNA BNT-162b2 vax 08/14/2020 Recorded Comments : 2021-02-12: Historical information-source unspecified SARS-CoV-2 (COVID-19) mRNA BNT-162b2 vax 07/24/2020 Recorded Comments : 2021-02-12: Historical information-source unspecified influenza virus vaccine, inactivated 04/18/2018 Given influenza virus vaccine, inactivated 03/16/2017 Given pneumococcal 23-valent vaccine 08/18/2016 Given influenza virus vaccine, inactivated 04/01/2016 Given influenza virus vaccine, inactivated 05/29/2015 Given pneumococcal 13-valent vaccine 01/15/2015 Given zoster vaccine live 02/16/2013 Recorded tetanus/diphtheria/pertuss, acel (Tdap) 06/07/2012 Given Recommendations Health Maintenance Pending(in the next year) OverDue Medicare Annual Wellness Visit due05/08/21and every 1year Falls Plan of Care due05/27/22and every 1year Adult Influenza Vaccine due12/18/22and every 1year Due Adult COVID-19 Vaccination due07/27/23Unknown Frequency Adult Tdap/Td Vaccine due07/27/23Unknown Frequency Diabetes Nephropathy Management due07/27/23Unknown Frequency Hepatitis C Screening due07/27/23One-time only Shingles Vaccine due07/27/23One-time only Due In Future Diabetic Eye Exam not due until12/01/23and every 366day Body Mass Index not due until02/28/24and every 366day Diabetes Management A1c not due until06/15/24and every 366day Adult Social Determinants of Health Screening not due until06/16/24and every 366day Satisfied(in the past 1 year) Satisfied Body Mass Index on06/15/23.Satisfied by SOPHIE Catalan Angie Breast Cancer Screening on01/08/23.Satisfied by [place] Blackburn Andrew E Diabetes Management A1c on06/15/23.Satisfied by Contributor_system, [employer] Diabetic Eye Exam on11/30/22.Satisfied by [place] Blackburn Andrew E Lipid Screening on04/28/23.Satisfied by [employer]system, [employer] Electronic Signature on File Electronically Reviewed/Signed by: Pamela Higuera MD Author Signature Dt/Tm:07/27/2023 02:03 PM Resident Department of Family Medicine Electronically Reviewed/Signed by: Pamela Higuera MD Cosigner Signature Dt/Tm: 07/27/2023 02:06 PM Resident Department of Family Medicine Electronically Reviewed/Signed by: MD Zee Avendañoigner Signature Dt/Tm: 07/27/2023 04:35 PM Department of Family Medicine [place] Patient Care team information Care Team Personnel Name: DO Bergeron Kristen M Position: Physician - Family Med Member Role: Lifetime Relationship Address: Address: [address] [address] [place] Name: MD Gary, Damaris Irizarry Position: Physician - Family Med Member Role: Primary Care Provider Address: Address: [address] [place] [id number] [place] Name: SUNDAY Diamond Lynn Position: Physician Radiologic Technician Exempt - Vasc Surg Member Role: Lifetime Relationship Address: Address: [address] [place] [id number] Care Team Related Persons Name: MIKHAIL VIVEROS Jr. Address: [place] Address: home [address] [place] [phone]
--- NOTE | 2023-08-01 10:40 | XRay Report ---
XR chest 1V portable CLINICAL HISTORY: weakness COMPARISON STUDY: Chest CT June 13, 2023. FINDINGS: A loop recorder is incidentally noted. Lung volumes are normal. Lungs are clear. There is no pneumothorax or pleural effusion. Moderate cardiomegaly, unchanged. Right paratracheal fullness wi th leftward deviation of the trachea is unchanged and due to a right lobe thyroid nodule shown on rajiv or CT. There is no evidence for pulmonary edema. IMPRESSION: No acute cardiopulmonary findings. No change in appearance of the chest. ACT 112: Negative or not required by law. Electronically signed by: Subhash Pearl M.D. 08/01/2023 10:39 AM
[2023-08-01 11:57] LABS: Basophils # (auto) 0.02 K/uL (0.00-0.20); Basophils % (auto) 0.3 %; Eosinophils % (auto) 1.7 %; Hematocrit (blood only) 35.5 % (37.0-47.0); Hemoglobin 10.8 g/dl (12.0-16.0); Immature Granulocytes # (auto) 0.03 K/uL (0.01-0.20); Immature Granulocytes % (auto) 0.5 %; Lymphocytes # (auto) 0.62 K/uL (1.20-3.40); Lymphocytes % (auto) 10.4 %; Mean Corpuscular Hemoglobin 26.2 pg (25.0-34.0); Mean Corpuscular Hgb Conc 30.4 g/dL (32.0-36.0); Monocytes # (auto) 0.45 K/uL (0.11-0.59); Monocytes % (auto) 7.6 %; Neutrophils # (auto) 4.74 K/uL (1.40-6.50); Neutrophils % (auto) 79.5 %; Platelet Count 200 K/uL (130-400); RDW Coefficient of Variation 14.9 % (11.5-14.5); RDW Standard Deviation 46.8 fL (36.4-46.3); Red Blood Count 4.13 M/uL (4.20-5.40); White Blood Count 5.96 K/ul (4.8-10.8)
[2023-08-01 12:11] LABS: Albumin Globulin Ratio 1.4 (0.9-2); Albumin Level 3.8 gm/dl (3.4-5.0); BUN Creatinine Ratio 29.6 (10-20); Bilirubin,Total 1.5 mg/dl (0.2-1.0); Calcium 8.7 mg/dl (8.6-10.3); Creatinine Clr Calc Pharmacy 89.9 ml/min; Est GFR (African American) 105.5 ml/min; Globulin 2.7 gm/dl (2.5-4.0); Magnesium 1.9 mg/dl (1.7-2.4); Potassium 4.3 mmol/L (3.5-5.1); Total Protein 6.5 gm/dl (6.0-8.3)
[2023-08-01 12:17] LABS: Troponin I High Sensitivity 8.1 pg/ml (0-14)
[2023-08-01 12:30] LABS: Thyroid Stimulating Hormone 1.398 uIu/ml (0.300-4.500)
[2023-08-01 13:13] LABS: Adenovirus PCR Not Detected (NotDetected); Bordetella parapertussis PCR Not Detected (NotDetected); Bordetella pertussis PCR Not Detected (NotDetected); Chlamydia pneumoniae PCR Not Detected (NotDetected); Coronavirus 229E PCR Not Detected (NotDetected); Coronavirus CoV-2 (COVID19)PCR Not Detected (NotDetected); Coronavirus HKU1 PCR Not Detected (NotDetected); Coronavirus NL63 PCR Not Detected (NotDetected); Coronavirus OC43PCR Not Detected (NotDetected); Human Metapneumovirus PCR Not Detected (NotDetected); Influenza A PCR Not Detected (NotDetected); Influenza B PCR Not Detected (NotDetected); Mycoplasma pneumoniae PCR Not Detected (NotDetected); Parainfluenza Virus 1 PCR Not Detected (NotDetected); Parainfluenza Virus 2 PCR Not Detected (NotDetected); Parainfluenza Virus 3 PCR Not Detected (NotDetected); Parainfluenza Virus 4 PCR Not Detected (NotDetected); Respiratory Syncytial VirusPCR Not Detected (NotDetected); Rhinovirus/Enterovirus PCR Not Detected (NotDetected)
--- NOTE | 2023-08-01 13:29 | XRay Report ---
XR humerus RT 2V CLINICAL HISTORY: fall COMPARISON: Chest radiograph February 02, 2023. FINDINGS: Alignment of the right shoulder and elbow is anatomic. There is no acute fracture within t he right humerus. No osseous lesions are noted. 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 IMPRESSION: No acute fracture within the right humerus. ACT 112: Negative or not required by law. Electronically signed by: Subhash Pearl M.D. 08/01/2023 1:27 PM
--- NOTE | 2023-08-01 14:11 | CT Scan Report ---
CT OF THE HEAD WITHOUT CONTRAST CLINICAL HISTORY: fall COMPARISON STUDY: Head CT July 28, 2023. CT DOSE: 547.75 mGy.cm TECHNIQUE: Helical axial images of the head were obtained without IV contrast. Automated exposure con trol was utilized for the study. A dose lowering technique was utilized adhering to the principles o f ALARA. FINDINGS: No acute intracranial hemorrhage, midline shift or mass effect is present. The ventricular system is stable. White matter hypodensities are unchanged and favor small vessel disease. An old lac unar infarct within left centrum semiovale is again noted. The basal cisterns are patent. No extra-ax ial collections are present. There are no findings to suggest acute dural sinus thrombosis or acute t erritorial infarct. No calvarial fracture. Left globe prosthesis is in place. IMPRESSION: 1. No acute intracranial findings. No change in appearance of the brain. 2. No calvarial fracture. ACT 112: Negative or not required by law. Electronically signed by: Subhash Pearl M.D. 08/01/2023 2:09 PM
--- NOTE | 2023-08-01 14:24 | Emergency Department Note ---
Impression & Plan Generalized weakness, Ambulatory dysfunction, Multiple falls, Contusion of arm, right ED Provider Note NAME: BARRINGTON VIVEROS AGE: 78 SEX: Female INFORMANT: Patient ED PROVIDER(S): Chilango Brody MD CHIEF COMPLAINT: Generalized weakness PLAN: Disposition: Admitted Outpatient prescription management: none Referral: None MEDICAL DECISION MAKING: Patient presented because of generalized weakness. She has had multiple falls recently. She had bruises and skin tears of various ages but a sizable area of bruising and ecchymosis noted on the right humerus area. No tenderness to palpation. There is no bony deformities. Patient had [address] scan of the head did not reveal any acute traumatic pathology. She had x-ray imaging of the chest as well as the right arm performed and there was no evidence of trauma or infection. Patient had an unremarkable CBC and chemistry panel except for some mild dehydration. Total CK negative. Troponin negative. ECG shows A- fib with the patient has a history of the same. No acute ischemic change was seen. Patient was hydrated with normal saline. Urinalysis is pending. Nursing attempted to ambulate the patient but they were unsuccessful. Given her multiple falls and ambulatory dysfunction further management in the hospital was felt to be appropriate. Discussed with change management manager regarding inpatient rehab versus hospitalization. Patient will need inpatient evaluation prior to rehab services. Care/management discussed with: change management manager Level of care consideration(s): After review of the information above and other included data, I feel the patient requires escalation of care to admission. Triage Nursing notes: reviewed and agree them. Vital Signs: reviewed and remarkable for no significant abnormalities Additional History obtained from: none Chronic Medical/Social Conditions affecting care: Anticoagulation Prior/ Outside/ External records reviewed: none Differential Diagnosis: Infection, dehydration, metabolic abnormality, hypo/hyperglycemia, electrolyte disturbance, anemia, hypoxia, cardiac sources, intracerebral event, toxicologic, neurologic, as well as other pathologies. Diagnostics, independently interpreted by me: ECG: Twelve-lead ECG reveals atrial fibrillation with left axis deviation. Low voltage QRS and septal Q wave. No ST elevation. Cardiac Monitoring: Cardiac monitoring ordered by me: The patient was placed on continuous cardiac monitoring and observed. It revealed a A-fib at 85 bpm Medical decision rules: none Imaging studies: X-ray imaging of the chest is negative for pneumonia or pneumothorax. X-ray imaging of the right humerus is negative for fracture or dislocation. HPI: 78 year old Female arrives for evaluation of generalized weakness and multiple falls. Patient notes many falls over the recent weeks but had 2 today. She did summon EMS for lift assist and then declined transport initially. Patient had another fall and EMS was summoned again. She was transported to ER for further evaluation. Patient denied any specific injury from her falls today but has noted multiple old skin tears as well as bruising on the right upper arm. Patient was given no medication prehospital. She rated discomfort in her bruises as a 4. Patient does note bumping her head but denies any significant headache. Pt denies LOC, headache, fevers, chills, diaphoresis, visual changes, neck pain, chest pain, breathing difficulties, nausea, vomiting, abdominal pain, back pain, melena, hematochezia, urinary symptoms, numbness, lymphadenopathy, rash, or other complaints. PAST MEDICAL HISTORY: See Below, TIA, atrial fibrillation, anticoagulated PAST SURGICAL HISTORY: See Below, SOCIAL HISTORY: See Below, lives alone HOME MEDICATIONS: See Below ALLERGIES: See Below VITALS: See Below PHYSICAL EXAMINATION: GENERAL: Awake, tired appearing, in no distress HENT: Normocephalic, atraumatic. Oropharynx unremarkable. EYES: Normal conjunctiva. Sclera non-icteric. NECK: Inspection normal. Non-tender. Supple. No nuchal rigidity. FROM. No masses. RESPIRATORY: Clear to auscultation. No wheezes. No rales. Normal respiratory effort. CARDIAC: Normal rate. Irregular rhythm. No murmurs. No rubs. Extremities warm and well perfused. Pulses equal. No JVD. GI: Soft, non-distended. No tenderness to palpation. No rebound or guarding. No masses. RECTAL: Deferred. MUSCULOSKELETAL: Large contusion in the right humerus area. Minimal tenderness to palpation. No bony deformities. Good range of motion of the shoulder and right elbow. There are skin tears on the upper and lower extremities that are in various stages of healing. There is an abrasion on the right knee without bony deformity or tenderness. Chest examination reveals no tenderness. The back is symmetrical on inspection without obvious abnormality. There is no CVA tenderness to palpation. No joint edema. LOWER EXTREMITIES: Calves are equal size bilaterally and non-tender. Trace edema. No discoloration. NEURO: Tired but not confused. Normal sensorium. No sensory or motor deficits noted. SKIN: No rash or jaundice noted. PROCEDURES: none CRITICAL CARE: none OBSERVATION NOTE: none Past Med/Surg History Medical History Acoustic neuroma FOLLOWS DR MITCHELL - UPCOMING RADIATION TREATMENT AFTER CATARACT SURGERY Ambulatory dysfunction Anxiety Chronic heart failure Complicated migraine "COMPLICATED MIGRAINES" - OCCUR OFTEN AND RESEMBLE SYMPTOMS OF A STROKE PER PT Diabetes INSULIN PUMP DVT prophylaxis GERD (gastroesophageal reflux disease) HX H/O head and neck radiation History of colon polyps History of high cholesterol History of TIA (transient ischemic attack) 2004 ,HX PT FOR, NO REMAINING RESIDUAL EFFECTS Hypertension HX BLOOD PRESSURE MEDICINE, ONCE A FIB DX - MED WAS D/C'D - PT REPORTS BLOOD PRESSURE USUALLY RUNS LOW AROUND 106/58 Mitral valve disorder DENIES Obesity Parkinson disease Permanent atrial fibrillation DX 2 YR AGO, NO HX CARDIOVERSION Stroke 08/16/22 treated at [facility]. still experiencing mild slurred speech at times, using a wheelchair, unable to ambulate at this time since her stroke. able to stand and pivot with assistance. Symptomatic stenosis of left carotid artery Surgical History H/O breast biopsy 10/26/17 LMA#4. 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 S/P appendectomy HX S/P cholecystectomy HX Status post carotid surgery Family History Mother Diabetes Congestive heart failure Colorectal cancer Hypertension Brother Congestive heart failure Colorectal cancer Sister Cancer Unknown Pancreatic cancer Son Family history of colonic polyps Social History Smoking Status: Never smoker Second Hand Exposure: No; Do You Dip or Chew Tobacco: No; Hx Alcohol Use: No Hx Substance Use: No Preferred Language: Czech Communication Ability: Effective Visual Impairment: No Limitations Bilingual Teacher Required: No Beliefs That Will Affect Care: None marital status: Unknown Current Living Situation: Alone Current Living Situation Comment: with help for 4 hours a day How many Children do You have: 2 Feels Safe at Home: Yes Assistive Devices: Walker Allergies Allergies Allergy/AdvReac Type Severity Reaction Status Date / Time benztropine Allergy Unknown PT NOT SURE Verified 08/01/23 12:08 citalopram Allergy Unknown PT NOT SURE Verified 08/01/23 12:08 doxycycline Allergy Unknown REMOTE HX, Verified 08/01/23 12:08 PT NOT SURE REACTION minocycline Allergy Unknown REMOTE HX, Verified 08/01/23 12:08 PT NOT SURE REACTION simvastatin Allergy Unknown PT NOT SURE Verified 08/01/23 12:08 sulindac Allergy Unknown PT NOT SURE Verified 08/01/23 12:08 empagliflozin AdvReac Intermediate Recurrent Verified 08/01/23 12:08 [From Jardiance] Urinary Tract Infection Home Meds Home Medications Medication Instructions Recorded Confirmed rivaroxaban 20 mg tablet (Xarelto) 20 mg PO QPM 11/08/19 08/01/23 carbidopa 25 mg-levodopa 100 mg 2 tab PO QID 02/07/20 08/01/23 tablet flash glucose sensor (FreeStyle #1 ea 09/02/20 07/27/23 Ruben 2 Sensor kit) amantadine HCl 100 mg capsule 100 mg PO AMHS 01/13/22 08/01/23 blood sugar diagnostic (OneTouch #10 ea 01/13/22 01/18/23 Verio test strips) clopidogrel 75 mg tablet (Plavix) 75 mg PO DAILY 08/24/22 08/01/23 amoxicillin 500 mg tablet 2,000 mg PO DIRECTED PRN PRIOR 11/13/22 08/01/23 TO DENTAL APPOINTMENTS cetirizine 10 mg tablet (Zyrtec) 10 mg PO DAILY 01/06/23 08/01/23 insulin lispro 100 unit/mL 0 sliding scale dose continuous 01/06/23 08/01/23 subcutaneous solution (Humalog subcutaneous infusion CONTINOUS U-100 Insulin) fluoxetine 20 mg capsule 20 mg PO QPM 01/10/23 08/01/23 [id number] 250 1 tab PO Q6H PRN Migraine Headache 04/25/23 08/01/23 mg-250 mg-65 mg tablet (Excedrin Migraine) magnesium oxide 400 mg (241.3 mg 400 mg PO QAM 04/25/23 08/01/23 magnesium) tablet riboflavin (vitamin B2) 400 mg 400 mg PO QAM 04/25/23 08/01/23 tablet acetaminophen 500 mg tablet 1,000 mg PO Q8H PRN pain/fever 07/27/23 08/01/23 atorvastatin 20 mg tablet 20 mg PO DAILY 07/27/23 08/01/23 pantoprazole 20 mg tablet,delayed 20 mg PO DAILY 07/27/23 08/01/23 release cyclosporine 0.05 % eye drops in a 1 drp OPB BID 08/01/23 08/01/23 dropperette fluticasone propionate 50 1 spray intranasal QAM 08/01/23 08/01/23 mcg/actuation nasal spray,suspension Previous Rx's Medication Instructions Recorded insulin syringe-needle U-100 1 mL #300 ea 09/28/22 31 gauge x 5/16" (BD Insulin Syringe Ultra-Fine) albuterol sulfate 90 mcg/actuation 2 puffs inhalation 6XD PRN 02/02/23 aerosol inhaler shortness of breath or wheezing #6.7 grams Results & Data (ED) Vital Signs Vital Signs - 24 hr 08/01/23 09:40 08/01/23 09:40 08/01/23 09:40 Temperature 36.7 C Temperature Source Oral Pulse Rate 82 Pulse Rate [Apical] 82 Pulse Rate from SpO2 Sensor Pulse Rhythm Respiratory Rate 20 20 Respiratory Effort / Characteristics Non-Labored Spontaneous Non-Labored Spontaneous Respiratory Depth Normal Normal Respiratory Pattern Regular Regular Blood Pressure 146/74 H Blood Pressure [Right Arm] 146/74 H Blood Pressure Mean 98 Blood Pressure Mean [Right Arm] 98 Pulse Oximetry 97 97 97 Oxygen Delivery Method Room Air Room Air Room Air Sepsis Recent Fever Within 48 Hours No Sepsis New/Unexplained Change in Mental Status No Sepsis Action Taken by Nursing No Action Required 08/01/23 09:40 08/01/23 10:00 08/01/23 10:00 Temperature Temperature Source Pulse Rate 72 76 Pulse Rate [Apical] Pulse Rate from SpO2 Sensor 74 Pulse Rhythm Respiratory Rate 17 15 Respiratory Effort / Characteristics Respiratory Depth Respiratory Pattern Blood Pressure 163/78 H Blood Pressure [Right Arm] Blood Pressure Mean 112 Blood Pressure Mean [Right Arm] Pulse Oximetry 98 Oxygen Delivery Method Sepsis Recent Fever Within 48 Hours Sepsis New/Unexplained Change in Mental Status Sepsis Action Taken by Nursing 08/01/23 10:10 08/01/23 10:30 08/01/23 10:30 Temperature Temperature Source Pulse Rate 76 78 Pulse Rate [Apical] Pulse Rate from SpO2 Sensor Pulse Rhythm Respiratory Rate 15 Respiratory Effort / Characteristics Respiratory Depth Respiratory Pattern Blood Pressure 159/87 H Blood Pressure [Right Arm] Blood Pressure Mean 119 Blood Pressure Mean [Right Arm] Pulse Oximetry Oxygen Delivery Method Sepsis Recent Fever Within 48 Hours Sepsis New/Unexplained Change in Mental Status Sepsis Action Taken by Nursing 08/01/23 11:00 08/01/23 11:00 08/01/23 11:05 Temperature Temperature Source Pulse Rate 75 84 Pulse Rate [Apical] Pulse Rate from SpO2 Sensor 77 Pulse Rhythm Regular Respiratory Rate 13 20 Respiratory Effort / Characteristics Respiratory Depth Respiratory Pattern Blood Pressure 166/87 H Blood Pressure [Right Arm] Blood Pressure Mean 122 Blood Pressure Mean [Right Arm] Pulse Oximetry 98 93 Oxygen Delivery Method Room Air Sepsis Recent Fever Within 48 Hours Sepsis New/Unexplained Change in Mental Status Sepsis Action Taken by Nursing 08/01/23 11:30 08/01/23 11:30 08/01/23 12:00 Temperature Temperature Source Pulse Rate 76 Pulse Rate [Apical] Pulse Rate from SpO2 Sensor 77 Pulse Rhythm Respiratory Rate 19 Respiratory Effort / Characteristics Respiratory Depth Respiratory Pattern Blood Pressure 186/87 H 169/102 H Blood Pressure [Right Arm] Blood Pressure Mean 124 118 Blood Pressure Mean [Right Arm] Pulse Oximetry 100 Oxygen Delivery Method Sepsis Recent Fever Within 48 Hours Sepsis New/Unexplained Change in Mental Status Sepsis Action Taken by Nursing 08/01/23 12:00 08/01/23 12:30 08/01/23 12:30 Temperature Temperature Source Pulse Rate 85 83 Pulse Rate [Apical] Pulse Rate from SpO2 Sensor 86 80 Pulse Rhythm Respiratory Rate 16 17 Respiratory Effort / Characteristics Respiratory Depth Respiratory Pattern Blood Pressure 177/96 H Blood Pressure [Right Arm] Blood Pressure Mean 134 Blood Pressure Mean [Right Arm] Pulse Oximetry 99 98 Oxygen Delivery Method Sepsis Recent Fever Within 48 Hours Sepsis New/Unexplained Change in Mental Status Sepsis Action Taken by Nursing 08/01/23 13:00 08/01/23 13:00 08/01/23 13:30 Temperature Temperature Source Pulse Rate 84 80 Pulse Rate [Apical] Pulse Rate from SpO2 Sensor 81 Pulse Rhythm Respiratory Rate 15 13 Respiratory Effort / Characteristics Respiratory Depth Respiratory Pattern Blood Pressure 171/93 H Blood Pressure [Right Arm] Blood Pressure Mean 144 Blood Pressure Mean [Right Arm] Pulse Oximetry 100 Oxygen Delivery Method Sepsis Recent Fever Within 48 Hours Sepsis New/Unexplained Change in Mental Status Sepsis Action Taken by Nursing 08/01/23 13:30 08/01/23 14:01 08/01/23 15:00 Temperature Temperature Source Pulse Rate 78 Pulse Rate [Apical] Pulse Rate from SpO2 Sensor 76 Pulse Rhythm Respiratory Rate 15 Respiratory Effort / Characteristics Respiratory Depth Respiratory Pattern Blood Pressure 175/79 H 158/95 H Blood Pressure [Right Arm] Blood Pressure Mean 132 123 Blood Pressure Mean [Right Arm] Pulse Oximetry 98 Oxygen Delivery Method Sepsis Recent Fever Within 48 Hours Sepsis New/Unexplained Change in Mental Status Sepsis Action Taken by Nursing 08/01/23 15:00 08/01/23 15:30 08/01/23 15:30 Temperature Temperature Source Pulse Rate 81 84 Pulse Rate [Apical] Pulse Rate from SpO2 Sensor 78 78 Pulse Rhythm Respiratory Rate 13 18 Respiratory Effort / Characteristics Respiratory Depth Respiratory Pattern Blood Pressure 157/94 H Blood Pressure [Right Arm] Blood Pressure Mean 114 Blood Pressure Mean [Right Arm] Pulse Oximetry 98 95 Oxygen Delivery Method Sepsis Recent Fever Within 48 Hours Sepsis New/Unexplained Change in Mental Status Sepsis Action Taken by Nursing Laboratory Data 08/01/23 11:37 08/01/23 11:37 Lab Results 08/01/23 08/01/23 Range/Units 11:37 Unknown WBC 5.96 (4.8-10.8) K/ul RBC 4.13 L (4.20-5.40) M/uL Hgb 10.8 L (12.0-16.0) g/dl Hct 35.5 L (37.0-47.0) % MCV 86.0 (80.0-100.0) fL MCH 26.2 (25.0-34.0) pg MCHC 30.4 L (32.0-36.0) g/dL RDW Std Deviation 46.8 H (36.4-46.3) fL RDW Coeff of Vicky 14.9 H (11.5-14.5) % Plt Count 200 (130-400) K/uL MPV 11.0 (9.4-12.4) fL Immature Gran % (Auto) 0.5 % Neut % (Auto) 79.5 % Lymph % (Auto) 10.4 % Sawyer % (Auto) 7.6 % Eos % (Auto) 1.7 % Baso % (Auto) 0.3 % Neut # (Auto) 4.74 (1.40-6.50) K/uL Lymph # (Auto) 0.62 L (1.20-3.40) K/uL Sawyer # (Auto) 0.45 (0.11-0.59) K/uL Eos # (Auto) 0.10 (0.00-0.50) K/uL Baso # (Auto) 0.02 (0.00-0.20) K/uL Immature Gran # (Auto) 0.03 (0.01-0.20) K/uL Sodium 137 (136-145) mmol/L Potassium 4.3 (3.5-5.1) mmol/L Chloride 104 (98-107) mmol/L Carbon Dioxide 27 (21-32) mmol/L Anion Gap 6 (3-11) BUN 16 (6-23) mg/dl Creatinine 0.54 L (0.6-1.2) mg/dl Est Cr Clr Drug Dosing 89.9 ml/min Est GFR ( Amer) 105.5 ml/min Est GFR (Non-Af Amer) 91.0 ml/min BUN/Creatinine Ratio 29.6 H (10-20) Glucose 227 H (70-99(Fasting)) mg/dl Calcium 8.7 (8.6-10.3) mg/dl Magnesium 1.9 (1.7-2.4) mg/dl Total Bilirubin 1.5 H (0.2-1.0) mg/dl AST 18 (13-39) U/L ALT 11 (7-52) U/L Alkaline Phosphatase 107 H (34-104) U/L Total Creatine Kinase 77 (26-192) U/L Troponin I High Sens 8.1 (0-14) pg/ml Total Protein 6.5 (6.0-8.3) gm/dl Albumin 3.8 (3.4-5.0) gm/dl Globulin 2.7 (2.5-4.0) gm/dl Albumin/Globulin Ratio 1.4 (0.9-2) TSH 1.398 (0.300-4.500) uIu/ml Urine Color Yellow Urine Appearance Cloudy A (Clear) Urine pH 7.0 (4.5-7.5) Ur Specific [place] 1.018 (1.000-1.030) Urine Protein Negative (Negative) Urine Glucose (UA) Trace H (Negative) Urine Ketones Trace H (Negative) Urine Blood Trace H (Negative) Urine Nitrite Negative (Negative) Urine Bilirubin Negative (Negative) Urine Urobilinogen Negative (Negative) Ur Leukocyte Esterase 3+ H (Negative) Urine WBC (Auto) >30 H (0-5) /hpf Urine RBC (Auto) 0-4 (0-4) /hpf U Hyaline Cast (Auto) 0 (0-5) /lpf U Epithel Cells (Auto) >30 H (0-5) /lpf Urine Bacteria (Auto) 4+ H (Negative) Urine Yeast Present A (None Prsent) Adenovirus (PCR) Not Detected (NotDetected) B. pertussis DNA (PCR) Not Detected (NotDetected) B.parapertussis DNA PCR Not Detected (NotDetected) C. pneumoniae DNA (PCR) Not Detected (NotDetected) Coronavirus OC43 (PCR) Not Detected (NotDetected) Coronavirus HKU1 (PCR) Not Detected (NotDetected) Coronavirus 229E (PCR) Not Detected (NotDetected) SARS-CoV-2 (PCR) Not Detected (NotDetected) Coronavirus NL63 (PCR) Not Detected (NotDetected) Human Metapneumovir PCR Not Detected (NotDetected) Influenza Type A (PCR) Not Detected (NotDetected) Influenza Type B (PCR) Not Detected (NotDetected) M. pneumoniae (PCR) Not Detected (NotDetected) Parainfluenza 1 (PCR) Not Detected (NotDetected) Parainfluenza 2 (PCR) Not Detected (NotDetected) Parainfluenza 3 (PCR) Not Detected (NotDetected) Parainfluenza 4 (PCR) Not Detected (NotDetected) RSV (PCR) Not Detected (NotDetected) Entero/Rhino (PCR) Not Detected (NotDetected) Administered Medications Discontinued Medications Sodium Chloride (Nss) 500 mls @ 999 mls/hr IV .Q31M ONE Stop: 08/01/23 14:41 Last Admin: 08/01/23 15:05 Dose: 999 mls/hr Documented By: SWD Imaging Data Radiologist's Impression: Chest X-Ray 08/01/23 10:15 XR chest 1V portable CLINICAL HISTORY: weakness COMPARISON STUDY: Chest CT June 13, 2023. FINDINGS: A loop recorder is incidentally noted. Lung volumes are normal. Lungs are clear. There is no pneumothorax or pleural effusion. Moderate cardiomegaly, unchanged. Right paratracheal fullness with leftward deviation of the trachea is unchanged and due to a right lobe thyroid nodule shown on prior CT. There is no evidence for pulmonary edema. IMPRESSION: No acute cardiopulmonary findings. No change in appearance of the chest. ACT 112: Negative or not required by law. Electronically signed by: Subhash Pearl M.D. 08/01/2023 10:[address] 08/01/23 12:59 CT OF THE HEAD WITHOUT CONTRAST CLINICAL HISTORY: fall COMPARISON STUDY: Head CT July 28, 2023. CT DOSE: 547.75 mGy.cm TECHNIQUE: Helical axial images of the head were obtained without IV contrast. Automated exposure control was utilized for the study. A dose lowering technique was utilized adhering to the principles of ALARA. FINDINGS: No acute intracranial hemorrhage, midline shift or mass effect is present. The ventricular system is stable. White matter hypodensities are unchanged and favor small vessel disease. An old lacunar infarct within left centrum semiovale is again noted. The basal cisterns are patent. No extra-axial collections are present. There are no findings to suggest acute dural sinus thrombosis or acute territorial infarct. No calvarial fracture. Left globe prosthesis is in place. IMPRESSION: 1. No acute intracranial findings. No change in appearance of the brain. 2. No calvarial fracture. ACT 112: Negative or not required by law. Electronically signed by: Subhash Pearl M.D. 08/01/2023 2:09 PM Humerus X-Ray 08/01/23 13:00 XR humerus RT 2V CLINICAL HISTORY: fall COMPARISON: Chest radiograph February 02, 2023. FINDINGS: Alignment of the right shoulder and elbow is anatomic. There is no acute fracture within the right humerus. No osseous lesions are noted. 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 IMPRESSION: No acute fracture within the right humerus. ACT 112: Negative or not required by law. Electronically signed by: Subhash Pearl M.D. 08/01/2023 1:27 PM Discharge Plan Visit Data Chief Complaint: Weakness ED Provider: Chilango Brody Discharge Problem: Generalized weakness, Ambulatory dysfunction, Multiple falls, Contusion of arm, right Forms Stand Alone Forms: [facility] Prescriptions Prescriptions: No Action (DME) insulin syringe-needle U-100 [BD Insulin Syringe Ultra-Fine] 1 mL 31 gauge x 5/16 syringe See Rx Instructions .Route Qty: 300 3RF Rx Instructions: use to inject insulin three times a day atorvastatin 20 mg tablet 20 mg PO DAILY pantoprazole 20 mg tablet,delayed release (DR/EC) 20 mg PO DAILY (DME) FreeStyle Ruben 2 Sensor Kit See Rx Instructions .ROUTE .MEDSUPPLY Qty: 1 Rx Instructions: As directed amantadine HCl 100 mg capsule 100 mg PO AMHS (DME) OneTouch Verio test strips Strip See Rx Instructions .ROUTE .MEDSUPPLY Qty: 10 Rx Instructions: Test blood sugar once daily PRN Xarelto 20 mg tablet 20 mg PO QPM carbidopa-levodopa 25-100 mg tablet 2 tab PO QID Rx Instructions: TAKES AT 0700, 1100, 1600, 2000 clopidogrel [Plavix] 75 mg Tablet 75 mg PO DAILY amoxicillin 500 mg tablet 2,000 mg PO DIRECTED PRN (Reason: PRIOR TO DENTAL APPOINTMENTS) albuterol sulfate 90 mcg/actuation HFA aerosol inhaler 2 puffs INH 6XD PRN (Reason: shortness of breath or wheezing) Qty: 6.7 0RF cetirizine [Zyrtec] 10 mg Tablet 10 mg PO DAILY insulin lispro [Humalog U-100 Insulin] 100 unit/mL solution 0 sliding scale dose continuous subcutaneous infusion CONTINOUS Rx Instructions: Pt has a pump. Unsure of max units (per pt) fluoxetine 20 mg capsule 20 mg PO QPM magnesium oxide 400 mg (241.3 mg magnesium) tablet 400 mg PO QAM Excedrin Migraine 250-250-65 mg Tablet 1 tab PO Q6H PRN (Reason: Migraine Headache) riboflavin (vitamin B2) 400 mg tablet 400 mg PO QAM Rx Instructions: PER PT "NOT REGULARLY". acetaminophen 500 mg tablet 1,000 mg PO Q8H PRN (Reason: pain/fever) fluticasone propionate [Flonase] 50 mcg/actuation [place],Suspension 1 spray INTRANASAL QAM Rx Instructions: administer into each nostril cyclosporine 0.05 % dropperette 1 drp OPB BID Referrals Referrals: Damaris Vega MD [Primary Care Provider] -
--- NOTE | 2023-08-01 14:46 | History & Physical Report ---
Date of Service August 01, 2023 Assessment & Plan (1) UTI (urinary tract infection): Plan: Ceftriaxone 2g IV daily Follow up urine culture - initial one was clean catch, second one was straight cath (2) Multiple falls: Plan: Longstanding history ?vertigo for the last 6 months. Parkinson's. Worse over the last week ?due to UTI B12 level with AM labs PT/OT (3) Dizziness: Plan: Monitor for improvement following treatment for UTI Consider further workup if not resolving after treatment for this (4) Contusion of arm, right: Plan: Multiple areas of skin tears, graze, ecchymosis from repeated falls Unable to safely return home at this time (5) GERD (gastroesophageal reflux disease): Plan: Continue pantoprazole (6) Paroxysmal A-fib: Plan: Anticoagulation with Xarelto (7) Parkinson's disease dementia: Plan: Continue her usual Sinemet and amantadine (8) Diabetes type 2, uncontrolled: Plan: HbA1C 6.8 [2/6] Patient unable to tell me her insulin regimen therefore taken from prior d stephania note Lantus 10 units QAM, 5 units QPM Novolog: --Goal BSG Range: Low 110 mg/dL, High 140 mg/dL --Correction Factor: 30 mg/dL/unit --Carbohydrate ratio = 7 g/unit --BSGs ACHS if eating, q6h if npo (9) Generalized weakness: (10) Ambulatory dysfunction: Plan VTE Prophylaxis - Xarelto Diet - T2DM Disposition - admit to med/tele Admission and Anticipated Discharge Date Admission Date: Aug 01, 2023 History of Present Illness Chief Complaint: Generalized fatigue and dizziness Primary Care Provider: Damaris Vega MD Sabine Ramirez is a 78 year old female who presents to the ER with generalized fatigue and weakness with increased falls over the last week. Usually she would fall once a week but for the last few weeks it has been every day. She feels she falls because she is dizzy. She notes her dizziness is progressively worse over the last 6 months for much worse over the last week. She describes her dizziness as being unbalanced, room spinning and lightheadedness. She reports no serious injuries from the fall but has scraps all over her body. She notes no acute infection symptoms although she has had urinary frequency over the last 4 months. More nauseous over the last week but no vomiting. No respiratory or other urinary or gastrointestinal symptoms. Allergies Allergy/AdvReac Type Severity Reaction Status Date / Time benztropine Allergy Unknown PT NOT SURE Verified 08/01/23 12:08 citalopram Allergy Unknown PT NOT SURE Verified 08/01/23 12:08 doxycycline Allergy Unknown REMOTE HX, Verified 08/01/23 12:08 PT NOT SURE REACTION minocycline Allergy Unknown REMOTE HX, Verified 08/01/23 12:08 PT NOT SURE REACTION simvastatin Allergy Unknown PT NOT SURE Verified 08/01/23 12:08 sulindac Allergy Unknown PT NOT SURE Verified 08/01/23 12:08 empagliflozin AdvReac Intermediate Recurrent Verified 08/01/23 12:08 [From Jardiance] Urinary Tract Infection Home Medications Medication Instructions Recorded Confirmed Type rivaroxaban 20 mg tablet (Xarelto) 20 mg PO QPM 11/08/19 08/01/23 History carbidopa 25 mg-levodopa 100 mg 2 tab PO QID 02/07/20 08/01/23 History tablet flash glucose sensor (FreeStyle #1 ea 09/02/20 07/27/23 History Ruben 2 Sensor kit) amantadine HCl 100 mg capsule 100 mg PO AMHS 01/13/22 08/01/23 History blood sugar diagnostic (OneTouch #10 ea 01/13/22 01/18/23 History Verio test strips) clopidogrel 75 mg tablet (Plavix) 75 mg PO DAILY 08/24/22 08/01/23 History insulin syringe-needle U-100 1 mL #300 ea 09/28/22 01/18/23 Rx 31 gauge x 5/16" (BD Insulin Syringe Ultra-Fine) amoxicillin 500 mg tablet 2,000 mg PO DIRECTED PRN PRIOR 11/13/22 08/01/23 History TO DENTAL APPOINTMENTS cetirizine 10 mg tablet (Zyrtec) 10 mg PO DAILY 01/06/23 08/01/23 History insulin lispro 100 unit/mL 0 sliding scale dose continuous 01/06/23 08/01/23 History subcutaneous solution (Humalog subcutaneous infusion CONTINOUS U-100 Insulin) fluoxetine 20 mg capsule 20 mg PO QPM 01/10/23 08/01/23 History albuterol sulfate 90 mcg/actuation 2 puffs inhalation 6XD PRN 02/02/23 08/01/23 Rx aerosol inhaler shortness of breath or wheezing #6.7 grams fsycmxu-vzwtjioeftzsq-fcdiavmj 250 1 tab PO Q6H PRN Migraine Headache 04/25/23 08/01/23 History mg-250 mg-65 mg tablet (Excedrin Migraine) magnesium oxide 400 mg (241.3 mg 400 mg PO QAM 04/25/23 08/01/23 History magnesium) tablet riboflavin (vitamin B2) 400 mg 400 mg PO QAM 04/25/23 08/01/23 History tablet acetaminophen 500 mg tablet 1,000 mg PO Q8H PRN pain/fever 07/27/23 08/01/23 History atorvastatin 20 mg tablet 20 mg PO DAILY 07/27/23 08/01/23 History pantoprazole 20 mg tablet,delayed 20 mg PO DAILY 07/27/23 08/01/23 History release cyclosporine 0.05 % eye drops in a 1 drp OPB BID 08/01/23 08/01/23 History dropperette fluticasone propionate 50 1 spray intranasal QAM 08/01/23 08/01/23 History mcg/actuation nasal spray,suspension Past Med/Surg History Medical History Acoustic neuroma FOLLOWS DR MITCHELL - UPCOMING RADIATION TREATMENT AFTER CATARACT SURGERY Ambulatory dysfunction Anxiety Chronic heart failure Complicated migraine "COMPLICATED MIGRAINES" - OCCUR OFTEN AND RESEMBLE SYMPTOMS OF A STROKE PER PT Diabetes INSULIN PUMP DVT prophylaxis GERD (gastroesophageal reflux disease) HX H/O head and neck radiation History of colon polyps History of high cholesterol History of TIA (transient ischemic attack) 2004 ,HX PT FOR, NO REMAINING RESIDUAL EFFECTS Hypertension HX BLOOD PRESSURE MEDICINE, ONCE A FIB DX - MED WAS D/C'D - PT REPORTS BLOOD PRESSURE USUALLY RUNS LOW AROUND 106/58 Mitral valve disorder DENIES Obesity Parkinson disease Permanent atrial fibrillation DX 2 YR AGO, NO HX CARDIOVERSION Stroke 08/16/22 treated at [facility]. still experiencing mild slurred speech at times, using a wheelchair, unable to ambulate at this time since her stroke. able to stand and pivot with assistance. Symptomatic stenosis of left carotid artery Surgical History H/O breast biopsy 10/26/17 LMA#4. 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 S/P appendectomy HX S/P cholecystectomy HX Status post carotid surgery Family History Mother Diabetes Congestive heart failure Colorectal cancer Hypertension Brother Congestive heart failure Colorectal cancer Sister Cancer Unknown Pancreatic cancer Son Family history of colonic polyps Social History Smoking Status: Never smoker Second Hand Exposure: No; Do You Dip or Chew Tobacco: No; Hx Alcohol Use: No Hx Substance Use: No Preferred Language: Azeri Communication Ability: Effective Visual Impairment: No Limitations Children'S Book Author Required: No Beliefs That Will Affect Care: None marital status: Unknown Current Living Situation: Alone Current Living Situation Comment: with help for 4 hours a day How many Children do You have: 2 Feels Safe at Home: Yes Safety Concerns: Feels Safe At This Time Assistive Devices: Walker Review of Systems Review of Systems: All systems reviewed & are unremarkable except as noted in HPI & below Physical Exam Constitutional: WD/WN, vitals as above appears tired, closing her eyes and drifting off multiple times throughout the conversation Eyes: PERRL, conjunctivae normal, anicteric sclerae ENMT: external ear and nose normal, oropharynx normal Respiratory: normal respiratory effort, lungs clear to auscultation Cardiovascular: Rate/Rhythm: regular rate and + irregularly irregular Heart Sounds: + murmur Extremities: normal capillary refill; no calf tenderness and no pedal edema Gastrointestinal (Abdomen): normal bowel sounds, soft, nontender, no hepatosplenomegaly Musculoskeletal: no cyanosis or clubbing, extremities motor strength 5/5 Skin: no rashes, warm and dry Neurologic: moves all extremities and awake; not confused Psychiatric: A+Ox3, euthymic affect Genitourinary: no CVA tenderness Results & Data Results & Data Vital Signs (Past 12 Hours) Vital Signs Temp Pulse Pulse Resp BP BP Pulse Ox 08/01/23 12:00 85 16 99 08/01/23 12:00 169/102 H 08/01/23 11:30 186/87 H 08/01/23 11:30 76 19 100 08/01/23 11:05 84 20 93 08/01/23 11:00 166/87 H 08/01/23 11:00 75 13 98 08/01/23 10:30 159/87 H 08/01/23 10:30 78 15 08/01/23 10:10 76 08/01/23 10:00 163/78 H 08/01/23 10:00 76 15 08/01/23 09:40 72 17 98 08/01/23 09:40 82 20 146/74 H 97 08/01/23 09:40 97 08/01/23 09:40 36.7 C 82 20 146/74 H 97 O2 Del Method 08/01/23 12:00 08/01/23 12:00 08/01/23 11:30 08/01/23 11:30 08/01/23 11:05 Room Air 08/01/23 11:00 08/01/23 11:00 08/01/23 10:30 08/01/23 10:30 08/01/23 10:10 08/01/23 10:00 08/01/23 10:00 08/01/23 09:40 08/01/23 09:40 Room Air 08/01/23 09:40 Room Air 08/01/23 09:40 Room Air Laboratory Results Abnormal lab results 08/01/23 Range/Units 11:37 RBC 4.13 L (4.20-5.40) M/uL Hgb 10.8 L (12.0-16.0) g/dl Hct 35.5 L (37.0-47.0) % MCHC 30.4 L (32.0-36.0) g/dL RDW Std Deviation 46.8 H (36.4-46.3) fL RDW Coeff of Vicky 14.9 H (11.5-14.5) % Lymph # (Auto) 0.62 L (1.20-3.40) K/uL Creatinine 0.54 L (0.6-1.2) mg/dl BUN/Creatinine Ratio 29.6 H (10-20) Glucose 227 H (70-99(Fasting)) mg/dl Total Bilirubin 1.5 H (0.2-1.0) mg/dl Alkaline Phosphatase 107 H (34-104) U/L Diagnostic Findings CT OF THE HEAD WITHOUT CONTRAST CLINICAL HISTORY: fall COMPARISON STUDY: Head CT July 28, 2023. CT DOSE: 547.75 mGy.cm TECHNIQUE: Helical axial images of the head were obtained without IV contrast. Automated exposure control was utilized for the study. A dose lowering technique was utilized adhering to the principles of ALARA. FINDINGS: No acute intracranial hemorrhage, midline shift or mass effect is present. The ventricular system is stable. White matter hypodensities are unchanged and favor small vessel disease. An old lacunar infarct within left oumar trum semiovale is again noted. The basal cisterns are patent. No extra-axial collections are present. There are no findings to suggest acute dural sinus thrombosis or acute territorial infarct. No calvarial fracture. Left globe prosthesis is in place. IMPRESSION: 1. No acute intracranial findings. No change in appearance of the brain. 2. No calvarial fracture. XR chest 1V portable CLINICAL HISTORY: weakness COMPARISON STUDY: Chest CT June 13, 2023. FINDINGS: A loop recorder is incidentally noted. Lung volumes are normal. Lungs are clear. There is no pneumothorax or pleural effusion. Moderate cardiomegaly, unchanged. Right paratracheal fullness with leftward deviation of the trachea is unchanged and due to a right lobe thyroid nodule shown on prior CT. There is no evidence for pulmonary edema. IMPRESSION: No acute cardiopulmonary findings. No change in appearance of the chest. XR humerus RT 2V CLINICAL HISTORY: fall COMPARISON: Chest radiograph February 02, 2023. FINDINGS: Alignment of the right shoulder and elbow is anatomic. There is no acute fracture within the right humerus. No osseous lesions are noted. 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 IMPRESSION: No acute fracture within the right humerus. Medications Administered ER Medications Given: NSS bolus 500ml Normal saline @125ml/hr ECG Rate (beats per minute): 84 Rhythm: atrial fibrillation Findings: + other (left axis deviation) Comparison ECG Date: from (Jun 13, 2023) Change: the following changes noted (non-specific T wave abnormality evident in inferior leads) Code Status & VTE Plan Code Status Full VTE Prophylaxis Plan VTE Prophylaxis will be ordered: Yes PG Care Time/CCT Total # of Minutes Spent Total Time Spent with Patient: Total time spent is greater than 50% in coordination of care (as documented) at patient's floor/unit and/or counseling patient: Coding Level of Care Code 97792 INT INP/OBS CARE 2/55MIN Diagnoses UTI (urinary tract infection) N39.0 Hematuria presence: without hematuria Urinary tract infection type: site unspecified Multiple falls R29.6 Dizziness R42 Contusion of arm, right S40.021A GERD (gastroesophageal reflux disease) K21.9 Paroxysmal A-fib I48.0 Parkinson's disease dementia G20; F02.80 Diabetes type 2, uncontrolled E11.65 Generalized weakness R53.1 Ambulatory dysfunction R26.2 (1) UTI (urinary tract infection) Hematuria presence: without hematuria Urinary tract infection type: site unspecified Qualified Code(s): N39.0 - Urinary tract infection, site not specified
[2023-08-01] MEDS: SODIUM CHLORIDE 0.9% 500 ML IV ONE (15:05)
[2023-08-01 15:14] LABS: Appearance Urine Cloudy (Clear); Bacteria Urine Automated 4+ (Negative); Bilirubin Urine Negative (Negative); Blood Urine Trace (Negative); Cast Urine Automated 0 /lpf (0-5); Color Urine Yellow; Epithelial Cell Urine Auto >30 /lpf (0-5); Glucose Urine UA Trace (Negative); Ketones Urine Trace (Negative); Leukocyte Esterase Urine 3+ (Negative); Nitrite Urine Negative (Negative); Protein Urine Negative (Negative); RBC Urine Automated 0-4 /hpf (0-4); Specific Gravity Urine 1.018 (1.000-1.030); Urobilinogen Urine Negative (Negative); WBC Urine Automated >30 /hpf (0-5)
[2023-08-01] MEDS: SODIUM CHLORIDE 0.9% 1,000 ML IV SCH (16:45)
--- NOTE | 2023-08-01 16:52 | Electrocardiogram Report ---
Test Reason : Blood Pressure : / mmHG Vent. Rate : 084 BPM Atrial Rate : 000 BPM P-R Int : 000 ms QRS Dur : 080 ms QT Int : 362 ms P-R-T Axes : 000 -30 024 degrees QTc Int : 427 ms Atrial fibrillation Left axis deviation Low voltage QRS Abnormal ECG When compared with ECG of 13-JUN-2023 16:42, QRS axis Shifted left Nonspecific T wave abnormality no longer evident in Inferior leads Confirmed by Tarun Briones ([id number]) on 08/01/2023 4:52:42 PM Referred By: REFERRED SELF Confirmed By:Nicho Briones
[2023-08-01] MEDS ORDERED: CARBOHYDRATES FOR HYPOGLYCEMIA PO PRN (18:35)
[2023-08-01] MEDS ORDERED: GLUCOSE 10 TAB/TUBE PO PRN (18:35)
[2023-08-01] MEDS ORDERED: GLUCAGON FOR INJ 1 MG VIAL SQ PRN (18:35)
[2023-08-01] MEDS ORDERED: GLUCOSE 40% GEL 15 GM TUBE PO PRN (18:35)
[2023-08-01] MEDS ORDERED: DEXTROSE 50% 50 ML SYRINGE IV PRN (18:35)
[2023-08-01] MEDS ORDERED: ACETAMINOPHEN 325 MG TAB PO PRN (18:35)
[2023-08-01 18:49] LABS: Appearance Urine Cloudy (Clear); Bacteria Urine Automated 2+ (Negative); Bilirubin Urine Negative (Negative); Blood Urine Negative (Negative); Color Urine Yellow; Glucose Urine UA Negative (Negative); Ketones Urine Negative (Negative); Leukocyte Esterase Urine Trace (Negative); Nitrite Urine Negative (Negative); Protein Urine Negative (Negative); RBC Urine Automated 0-4 /hpf (0-4); Specific Gravity Urine 1.013 (1.000-1.030); Urobilinogen Urine Negative (Negative); pH Urine 7.5 (4.5-7.5)
[2023-08-01] MEDS ORDERED: NON-FORMULARY MEDICATION (Aspirin-Acetaminophen-Caffeine [Excedrin Migraine] 250-250-65 mg PO PRN (19:15)
[2023-08-01] MEDS: cefTRIAXone SODIUM 2,000 MG in DEXTROSE 5 % MINI-B 50 ML IV SCH (20:46)
[2023-08-01] MEDS: FLUoxetine HCL 20 MG CAP PO SCH (20:51)
[2023-08-01] MEDS: AMANTADINE HCL 100 MG CAPSULE PO SCH (20:51)
[2023-08-01] MEDS: RIVAROXABAN 20 MG TAB PO SCH (20:51)
[2023-08-01] MEDS: CARBIDOPA/LEVODOPA 25/100MG TAB PO SCH (20:52)
[2023-08-01] MEDS: INSULIN ASPART PER UNIT CHARGE SC SCH (21:16)
[2023-08-01] MEDS: LANTUS PER UNIT CHARGE SQ SCH (23:03)
--- NOTE | 2023-08-02 07:30 | Hospitalist Progress Note ---
Date of Service August 02, 2023 Assessment & Plan (1) Multiple falls: (2) UTI (urinary tract infection): (3) Orthostatic dizziness: (4) Parkinsons disease: Plan (1) UTI (urinary tract infection): Ceftriaxone 2g IV daily UA: Pérez 3+ Follow up urine culture - initial one was clean catch, second one was straight cath, both show Gram neg bacilli -Ur Cx sensitivities pending (2) Multiple falls: Longstanding Hx of "vertigo" for the last 6 months. Parkinson's. Worse over the last week, possibly due to UTI B12 level, 457 PT/OT consulted (3) Dizziness: 125/65 Monitor for improvement following treatment for UTI Consider further workup if not resolving after treatment for this Orthostatic hypotension measurements: supine 125/64, sitting 96/53, standing 108/62 (4) Contusion of arm, right: Multiple areas of skin tears, graze, ecchymosis from repeated falls Unable to safely return home at this time (5) GERD (gastroesophageal reflux disease): Continue pantoprazole (6) Paroxysmal A-fib Anticoagulation with Xarelto (7) Parkinson's disease dementia: Continue her usual Sinemet and amantadine (8) Diabetes type 2, uncontrolled: HbA1C 6.8 [2/6] Patient unable to tell me her insulin regimen therefore taken from prior diabetes note Lantus 10 units QAM, 5 units QPM Novolog: --Goal BSG Range: Low 110 mg/dL, High 140 mg/dL --Correction Factor: 30 mg/dL/unit --Carbohydrate ratio = 7 g/unit --BSGs ACHS if eating, q6h if npo (9) Generalized weakness: (10) Ambulatory dysfunction: Plan VTE Prophylaxis - Xarelto Diet - T2DM Disposition - admit to med/tele Admission and Anticipated Discharge Date Admission Date: August 01, 2023 Supervising Physician Co-Signing Physician Notes I personally examined the patient and verified all valencia points of history and exam, discussed case, and agree with decision making with Dr Berenice perez and falling more and more. Notes that for a while most of her falls appear to be mechanicalnoting that her right leg does not carry as well as her left, and that she was not sure if she caught her foot or got tangled upbut she would have what appeared to be mechanical fall. She notes these have happened less now that she is very slow and careful with how she gets around, but is started having falls where she becomes dizzy and involuntarily falls even if she is holding onto something. In trying to clarify this, she describes a moving type of dizzinessand even relates at times it might happen whenever she is in bed and feels like she is moving or the bed is moving, but at the same time when asking about triggersit seems that it most closely is associated with standing from the seated position as she starts to move. She denies any significant reproducibility with looking in any general direction. She discusses more of a vertiginous dizziness and her descriptions, but whenever I described dizziness to her she endorses more of a lightheaded dizziness, even though she then uses more vertiginous type verbiage to describe it in her own words. Also notes poor hearing in right ear and left ear cerumen impaction making it even harder to hear.Vitals noted, in general she is awake and alert pleasant no distress. Left ear cerumen impactionwas able to irrigate to at least having some degree of opening to her tympanic membrane. She noted some improvement in her hearing. Breathing unlabored no accessory muscle use good effort. Skin shows no rashes no pallor or icterus. Neuro with parkinsonian type featuresmild tremor, slo wer and more quiet responses. 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 Will follow for how she does, follow how she does with therapy, and look for nystagmus when she is dizzy versus orthostatic drop in her blood pressure. If it appears consistent with Parkinson's/autonomic dysfunctionthen need to start midodrine and/or Florinef, if more consistent with a true vertiginous phenomenon, then vestibular therapy. Would like to have her follow-up with her Parkinson's team as an outpatient in the near future. She and I both would [facility]. Left ear cerumen impactionirrigated at least to improve her hearing somewill add Debrox drops and then hopefully can get it to further improve with future irrigation. Anticoagulated. Otherwise as above. Subjective Primary Care Provider: Damaris Vega MD Sabine Ramirez is a 78 year old female w/ a PMHx of Parkinson's dz, stroke (September,), s/p l. carotid endarterectomy (September,), among other conditions, who presents to the ER with generalized fatigue and weakness with increased falls over the last week. Usually she falls once a week but for the last few weeks it has been every day. This morning I talked to the patient. Patient uses her walker when she walks around her own house and falls down on avg once a week for a few years (even before stroke). Patient feels she leans to her right or backwards when she walks and always falls to her right or backwards. Patient has call rogers pendulum or microphones ([employer]) around house, so that paramedics come get her, lift her up, get her comfortable then leave. This last week it's been increasing, so that she's falling every day. Pt came home from [facility] n 07/22/23 after falling in May, breaking 4 ribs, transferred from here to [facility] where she recuperated for 4-5 weeks before being in [facility]. They put a nerve block in pt's back, drained blood from a hemothorax, pt was on oxycontin for first [address]H while in [facility]. Patient used to take lorazepam at night, 0.5 mg, at night to help w/ anxiety but PCP tapered her off of it 2 mos ago. Her PCP has tried to figure out etiology of falls and [facility] also tried, often trying to reduce pt's polypharmacy. Patient states she is very careful when standing up to wait before starting to move. pt states that [facility] says that her Sx seemed like orthostatic hypotension. Pt doesn't feel like she's passing out most of the time when she falls. Pt states that turning with her walker is a problem. She feels like her r. foot doesn't turn well when turning. 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 eye exotropia at baseline, secondary to retinal detachment per pt) Respiratory: normal respiratory effort, lungs clear to auscultation Cardiovascular: RRR, no murmur, no edema Gastrointestinal (Abdomen): normal bowel sounds, soft, nontender, no hepatosplenomegaly Neurologic: moves all extremities and awake Cranial Nerves: PERRL, tongue midline and symmetric palate elevation; + abnormal facial strength (l. sided facial weakness) Coordination: + abnormal xyirtn-im-mvgu test, + abnormal dido-mp-webm test and + abnormal rapid alternating movements Results & Data Results & Data Vital Signs (Past 12 Hours) Vital Signs Pulse Resp BP Pulse Ox Pulse Ox O2 Del Method O2 Del Method 08/02/23 07:24 74 08/02/23 07:00 154/76 H 08/02/23 07:00 68 14 98 08/02/23 06:01 72 12 98 08/02/23 06:01 154/67 H 08/02/23 06:00 69 12 93 08/02/23 05:00 67 12 98 08/02/23 05:00 144/70 H 08/02/23 04:00 69 12 100 08/02/23 04:00 157/87 H 08/02/23 03:00 79 15 97 08/02/23 03:00 145/72 H 08/02/23 02:00 76 14 139/78 98 Room Air 08/02/23 01:00 74 15 136/76 97 Room Air 08/02/23 00:30 68 15 130/71 97 Room Air 08/02/23 00:11 73 08/02/23 00:00 83 19 135/76 97 Room Air 08/01/23 23:30 70 16 139/74 98 Room Air 08/01/23 23:00 73 17 138/80 97 Room Air 08/01/23 22:30 72 13 143/71 H 97 Room Air 08/01/23 22:00 72 13 148/78 H 97 Room Air 08/01/23 21:30 82 16 142/85 H 97 Room Air 02/11/24 21:00 82 16 149/74 H 99 Room Air 08/01/23 20:30 84 18 169/91 H 99 Room Air 08/01/23 20:00 79 17 95 Room Air 08/01/23 19:41 99 Room Air 08/01/23 19:30 75 12 165/89 H 97 Room Air Resident Activity Tracking Resident Involvement: Resident Care Provided Care Provided: Adult Hospital Medicine (2) UTI (urinary tract infection) Hematuria presence: without hematuria Urinary tract infection type: site unspecified Qualified Code(s): N39.0 - Urinary tract infection, site not specified
[2023-08-02 08:25] LABS: Basophils # (auto) 0.02 K/uL (0.00-0.20); Basophils % (auto) 0.4 %; Eosinophils # (auto) 0.15 K/uL (0.00-0.50); Eosinophils % (auto) 2.9 %; Hematocrit (blood only) 35.4 % (37.0-47.0); Hemoglobin 10.8 g/dl (12.0-16.0); Immature Granulocytes # (auto) 0.02 K/uL (0.01-0.20); Immature Granulocytes % (auto) 0.4 %; Lymphocytes % (auto) 15.3 %; Mean Corpuscular Hgb Conc 30.5 g/dL (32.0-36.0); Mean Corpuscular Volume 85.3 fL (80.0-100.0); Mean Platelet Volume 11.4 fL (9.4-12.4); Monocytes # (auto) 0.47 K/uL (0.11-0.59); Neutrophils # (auto) 3.76 K/uL (1.40-6.50); Platelet Count 209 K/uL (130-400); RDW Coefficient of Variation 15.2 % (11.5-14.5); RDW Standard Deviation 46.7 fL (36.4-46.3); Red Blood Count 4.15 M/uL (4.20-5.40); White Blood Count 5.22 K/ul (4.8-10.8)
[2023-08-02] MEDS: CLOPIDOGREL BISULFATE 75 MG TAB PO SCH (08:26)
[2023-08-02] MEDS: PANTOprazole 40 MG TAB PO SCH (08:26)
[2023-08-02] MEDS: CETIRIZINE HCL 10 MG TABLET PO SCH (08:26)
[2023-08-02] MEDS: ATORVASTATIN 20 MG TAB PO SCH (08:26)
[2023-08-02] MEDS: MAGNESIUM OXIDE 400 MG TAB PO SCH (08:26)
[2023-08-02] MEDS: FLUTICASONE PROPIONATE NA SPR 16 GM BTL NAE SCH (08:30)
[2023-08-02 08:38] LABS: Albumin Globulin Ratio 1.5 (0.9-2); Albumin Level 3.7 gm/dl (3.4-5.0); BUN Creatinine Ratio 23.4 (10-20); Bilirubin,Total 1.3 mg/dl (0.2-1.0); Calcium 8.5 mg/dl (8.6-10.3); Creatinine Clr Calc Pharmacy 103.3 ml/min; Est GFR (African American) 110.4 ml/min; Est GFR (Non-African American) 95.3 ml/min; Globulin 2.5 gm/dl (2.5-4.0); Potassium 4.3 mmol/L (3.5-5.1); Total Protein 6.2 gm/dl (6.0-8.3)
[2023-08-02] MEDS: LANTUS PER UNIT CHARGE SQ SCH (10:00)
--- NOTE | 2023-08-02 19:41 | Billing Data ---
Date of Service August 02, 2023 Coding Level of Care Code 23067 SUB INP/OBS CARE MIN
[2023-08-02] MEDS: CARBAMIDE PEROXIDE 6.5% 15 ML BTL OTL SCH (22:25)
--- NOTE | 2023-08-03 09:28 | Hospitalist Progress Note ---
Date of Service August 03, 2023 Assessment & Plan (1) Multiple falls: (2) UTI (urinary tract infection): (3) Orthostatic dizziness: (4) Parkinsons disease: Plan (1) UTI (urinary tract infection): UA: Pérez 3+ Follow up urine culture - initial one was clean catch, second one was straight cath, both show Gram neg bacilli -Cefdinir, 300 mg, PO, BID (Ur Cx sensitivities suggested) (2) Multiple falls: Longstanding Hx of "vertigo" for the last 6 months. Hx of Parkinson's dz Worse over the last week, possibly due to UTI B12 level, 457 PT/OT consulted (3) Dizziness: 125/65 Monitor for improvement following treatment for UTI Consider further workup if not resolving after treatment for this Orthostatic hypotension measurements: supine 125/64, sitting 96/53, standing 108/62 Will consider recommending for vestibular therapy due to possibility of BPPV (4) Contusion of arm, right: Multiple areas of skin tears, graze, ecchymosis from repeated falls Unable to safely return home at this time (5) GERD (gastroesophageal reflux disease): Continue pantoprazole (6) Paroxysmal A-fib Anticoagulation with Xarelto (7) Parkinson's disease dementia: Continue her usual Sinemet and amantadine (8) Diabetes type 2, uncontrolled: HbA1C 6.8 [2/6] Patient unable to tell me her insulin regimen therefore taken from prior diabetes note Lantus 10 units QAM, 5 units QPM Novolog: --Goal BSG Range: Low 110 mg/dL, High 140 mg/dL --Correction Factor: 30 mg/dL/unit --Carbohydrate ratio = 7 g/unit --BSGs ACHS if eating, q6h if npo (9) Generalized weakness: (10) Ambulatory dysfunction: Plan VTE Prophylaxis - Xarelto Diet - T2DM Disposition - admit to med/tele Admission and Anticipated Discharge Date Admission Date: August 01, 2023 Supervising Physician Co-Signing Physician Notes I personally examined the patient and verified all valencia points of history and exam, discussed case, and agree with decision making with Dr Ng Hearing better. Still awaiting rehab. Would like to go to [facility]. Vitals noted, in general she is awake and alert pleasant no distress. HEENT normocephalic atraumatic mucous membranes moist. Breathing unlabored no accessory muscle use good effort. Skin shows no rashes no pallor or icterus. 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 Continue to follow for how she does, follow how she does with therapy, and look for nystagmus when she is dizzy versus orthostatic drop in her blood pressure. did show 1 orthostatic droplow threshold to start midodrine if this persists/recurs. If it appears consistent with Parkinson's/autonomic dysfunctionthen need to start midodrine and/or Florinef, if more consistent with a true vertiginous phenomenon, then vestibular therapy. Would like to have her follow-up with her Parkinson's team as an outpatient in the near future. She and I both [facility]. Left ear cerumen impactionirrigated at least to improve her hearing some Continue Debrox drops and then hopefully can get it to further improve with future irrigation. hearing better today chronic diastolic CHFcompensated. Anticoagulated. Otherwise as above. Subjective Primary Care Provider: Damaris Vega MD Sabine Ramirez is a 78 year old female w/ a PMHx of Parkinson's dz, stroke (September,), s/p l. carotid endarterectomy (September,), among other conditions, who presents to the ER with generalized fatigue and weakness with increased falls over the last week. Usually she falls once a week but for the last few weeks it has been every day. This morning I talked to the patient. Patient uses her walker when she walks around her own house and falls down on avg once a week for a few years (even before stroke). Patient feels she leans to her right or backwards when she walks and always falls to her right or backwards. Patient has call rogers pendulum or microphones ([employer]) around house, so that paramedics come get her, lift her up, get her comfortable then leave. This last week it's been increasing, so that she's falling every day. Pt came home from [facility] n 07/22/23 after falling in May, breaking 4 ribs, transferred from here to [facility] where she recuperated for 4-5 weeks before being in [facility]. They put a nerve block in pt's back, drained blood from a hemothorax, pt was on oxycontin for first [address]-H while in [facility]. Patient used to take lorazepam at night, 0.5 mg, at night to help w/ anxiety but PCP tapered her off of it 2 mos ago. Her PCP has tried to figure out etiology of falls and [facility] also tried, often trying to reduce pt's polypharmacy. Patient states she is very careful when standing up to wait before starting to move. pt states that [facility] says that her Sx seemed like orthostatic hypotension. Pt doesn't feel like she's passing out most of the time when she falls. Pt states that turning with her walker is a problem. She feels like her r. foot doesn't turn well when turning. 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 Patient states she thinks she started having falls sometime before the spring 2019 (start of pandemic). Today patient endorsed an episode of dizziness that sounded more like vertigo--pulling herself up to the right in her bed to reposition herself while turning head to right. 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 eye exotropia at baseline, secondary to retinal detachment per pt) Respiratory: normal respiratory effort, lungs clear to auscultation Cardiovascular: RRR, no murmur, no edema Gastrointestinal (Abdomen): normal bowel sounds, soft, nontender, no hepatosplenomegaly Neurologic: moves all extremities and awake Cranial Nerves: PERRL, tongue midline and symmetric palate elevation; + abnormal facial strength (l. sided facial weakness) Coordination: + abnormal eoevqh-qv-oppj test, + abnormal qqtq-ud-tyfz test and + abnormal rapid alternating movements Results & Data Results & Data Vital Signs (Past 12 Hours) Vital Signs Temp Pulse Pulse Resp BP Pulse Ox O2 Del Method 08/03/23 08:07 36.9 C 72 16 130/74 99 Room Air 08/03/23 03:41 36.9 C 75 20 136/73 99 Room Air 08/03/23 02:54 Room Air 08/02/23 23:17 36.8 C 73 18 138/68 97 Room Air 08/02/23 21:59 77 (2) UTI (urinary tract infection) Hematuria presence: without hematuria Urinary tract infection type: site unspecified Qualified Code(s): N39.0 - Urinary tract infection, site not specified
--- NOTE | 2023-08-03 18:17 | Billing Data ---
Date of Service August 03, 2023 Coding Level of Care Code 48003 SUB INP/OBS CARE
[2023-08-03] MEDS: CEFDINIR 300 MG CAP PO SCH (20:00)
--- NOTE | 2023-08-04 06:56 | Discharge Summary ---
Date of Service August 04, 2023 Admission HPI Per Admitting Provider Sabine Ramirez is a 78 year old female who presents to the ER with generalized fatigue and weakness with increased falls over the last week. Usually she would fall once a week but for the last few weeks it has been every day. She feels she falls because she is dizzy. She notes her dizziness is progressively worse over the last 6 months for much worse over the last week. She describes her dizziness as being unbalanced, room spinning and lightheadedness. She reports no serious injuries from the fall but has scraps all over her body. She notes no acute infection symptoms although she has had urinary frequency over the last 4 months. More nauseous over the last week but no vomiting. No respiratory or other urinary or gastrointestinal symptoms. Discharge Exam Constitutional WD/WN, vitals as above Eyes + EOM movement deficit (l. eye exotropia at baseline, secondary to retinal detachment per pt) Respiratory normal respiratory effort, lungs clear to auscultation Cardiovascular RRR, no murmur, no edema Gastrointestinal (Abdomen) normal bowel sounds, soft, nontender, no hepatosplenomegaly Neurologic moves all extremities and awake Cranial Nerves: PERRL, tongue midline and symmetric palate elevation; + abnormal facial strength (l. sided facial weakness) Coordination: + abnormal kpotla-vj-tkvj test, + abnormal wpbh-wl-sesv test and + abnormal rapid alternating movements Discharge Data Allergies Allergy/AdvReac Type Severity Reaction Status Date / Time benztropine Allergy Unknown PT NOT SURE Verified 08/01/23 12:08 citalopram Allergy Unknown PT NOT SURE Verified 08/01/23 12:08 doxycycline Allergy Unknown REMOTE HX, Verified 08/01/23 12:08 PT NOT SURE REACTION minocycline Allergy Unknown REMOTE HX, Verified 08/01/23 12:08 PT NOT SURE REACTION simvastatin Allergy Unknown PT NOT SURE Verified 08/01/23 12:08 sulindac Allergy Unknown PT NOT SURE Verified 08/01/23 12:08 empagliflozin AdvReac Intermediate Recurrent Verified 08/01/23 12:08 [From Jardiance] Urinary Tract Infection Consultations 08/01/23 15:06 ED Decision to Admit Stat Ordered Studies 08/01/23 12:59 CT head/brain wo con Stat Hospital Course (1) Multiple falls: (2) UTI (urinary tract infection): (3) Orthostatic dizziness: (4) Parkinsons disease: Plan (1) UTI (urinary tract infection): UA: Pérez 3+ Follow up urine culture - initial one was clean catch, second one was straight cath, both show Gram neg bacilli -Cefdinir, 300 mg, PO, BID (Ur Cx sensitivities suggested) (2) Multiple falls: Longstanding Hx of "vertigo" for the last 6 months. Hx of Parkinson's dz Worse over the last week, possibly due to UTI B12 level, 457 PT/OT consulted (3) Dizziness: 125/65 Monitor for improvement following treatment for UTI Consider further workup if not resolving after treatment for this Orthostatic hypotension measurements: supine 125/64, sitting 96/53, standing 108/62 Will consider recommending for vestibular therapy due to possibility of BPPV (4) Contusion of arm, right: Multiple areas of skin tears, graze, ecchymosis from repeated falls Unable to safely return home at this time (5) GERD (gastroesophageal reflux disease): Continue pantoprazole (6) Paroxysmal A-fib Anticoagulation with Xarelto (7) Parkinson's disease dementia: Continue her usual Sinemet and amantadine (8) Diabetes type 2, uncontrolled: HbA1C 6.8 [2/6] Patient unable to tell me her insulin regimen therefore taken from prior diabetes note Lantus 10 units QAM, 5 units QPM Novolog: --Goal BSG Range: Low 110 mg/dL, High 140 mg/dL --Correction Factor: 30 mg/dL/unit --Carbohydrate ratio = 7 g/unit --BSGs ACHS if eating, q6h if npo (9) Generalized weakness: (10) Ambulatory dysfunction: Plan VTE Prophylaxis - Xarelto Diet - T2DM Disposition - admit to med/tele Discharge Plan Discharge Items Reason For Visit: DIZZINESS, AMBULATORY DYSFUNCTION Follow-up/Referrals: Damaris Vega MD [Primary Care Provider] - Medications and DC Order Prescriptions: No Action (DME) insulin syringe-needle U-100 [BD Insulin Syringe Ultra-Fine] 1 mL 31 gauge x 5/16 syringe See Rx Instructions .Route Qty: 300 3RF Rx Instructions: use to inject insulin three times a day atorvastatin 20 mg tablet 20 mg PO DAILY pantoprazole 20 mg tablet,delayed release (DR/EC) 20 mg PO DAILY (DME) FreeStyle Ruben 2 Sensor Kit See Rx Instructions .ROUTE .MEDSUPPLY Qty: 1 Rx Instructions: As directed amantadine HCl 100 mg capsule 100 mg PO AMHS (DME) OneTouch Verio test strips Strip See Rx Instructions .ROUTE .MEDSUPPLY Qty: 10 Rx Instructions: Test blood sugar once daily PRN Xarelto 20 mg tablet 20 mg PO QPM carbidopa-levodopa 25-100 mg tablet 2 tab PO QID Rx Instructions: TAKES AT 0700, 1100, 1600, 2000 clopidogrel [Plavix] 75 mg Tablet 75 mg PO DAILY amoxicillin 500 mg tablet 2,000 mg PO DIRECTED PRN (Reason: PRIOR TO DENTAL APPOINTMENTS) albuterol sulfate 90 mcg/actuation HFA aerosol inhaler 2 puffs INH 6XD PRN (Reason: shortness of breath or wheezing) Qty: 6.7 0RF cetirizine [Zyrtec] 10 mg Tablet 10 mg PO DAILY insulin lispro [Humalog U-100 Insulin] 100 unit/mL solution 0 sliding scale dose continuous subcutaneous infusion CONTINOUS Rx Instructions: Pt has a pump. Unsure of max units (per pt) fluoxetine 20 mg capsule 20 mg PO QPM magnesium oxide 400 mg (241.3 mg magnesium) tablet 400 mg PO QAM Excedrin Migraine 250-250-65 mg Tablet 1 tab PO Q6H PRN (Reason: Migraine Headache) riboflavin (vitamin B2) 400 mg tablet 400 mg PO QAM Rx Instructions: PER PT "NOT REGULARLY". acetaminophen 500 mg tablet 1,000 mg PO Q8H PRN (Reason: pain/fever) fluticasone propionate [Flonase] 50 mcg/actuation [place],Suspension 1 spray INTRANASAL QAM Rx Instructions: administer into each nostril cyclosporine 0.05 % dropperette 1 drp OPB BID Admission Data Admit Date/Time: 08/01/23 15:05 Attending Provider: Renzo Lofton Admit Provider: Kristopher Cortes Primary Care Provider: Damaris Vega Other Providers: Kristopher Cortes; [facility] Resident Activity Tracking Resident Involvement: Resident Care Provided Care Provided: Adult Hospital Medicine
[2023-08-04] MEDS: ACETAMINOPHEN 500 MG TAB PO PRN (13:40)
--- NOTE | 2023-08-04 15:21 | Hospitalist Progress Note ---
Date of Service August 04, 2023 Assessment & Plan (1) Multiple falls: (2) UTI (urinary tract infection): (3) Orthostatic dizziness: (4) Parkinsons disease: Plan (1) UTI (urinary tract infection): Pansensitive Klebsiellaon cefdinir (2) Multiple falls: PT/OT eval and treat. For SNF, rehab emphasisquestion of autonomic instability versus vertiginousseems like probably a bit of both. (3) Dizziness: See above, appears to be having fairly persistent orthostatic symptomswill start midodrine and titrate as needed (4) Contusion of arm, right: Multiple areas of skin tears, graze, ecchymosis from repeated falls Unable to safely return home at this time (5) GERD (gastroesophageal reflux disease): Continue pantoprazole (6) Paroxysmal A-fib Anticoagulation with Xarelto (7) Parkinson's disease dementia: Continue her usual Sinemet and amantadine (8) Diabetes type 2, uncontrolled: HbA1C 6.8 [2/6] Patient unable to tell me her insulin regimen therefore taken from prior diabetes note Lantus 10 units QAM, 5 units QPM Novolog: --Goal BSG Range: Low 110 mg/dL, High 140 mg/dL --Correction Factor: 30 mg/dL/unit --Carbohydrate ratio = 7 g/unit --BSGs ACHS if eating, q6h if npo (9) Generalized weakness: (10) Ambulatory dysfunction: Plan VTE Prophylaxis - Xarelto Diet - T2DM Disposition - stable for medical, awaiting SNF/rehab emphasis. Admission and Anticipated Discharge Date Admission Date: August 01, 2023 Subjective Feeling okay. [facility]wait[facility] at the time I see her. Unfortunately peer to peer discussion for rehab was denied, although implied SNF would be approved. Hearing is better, ears feeling better after Debrox drops. Review of Systems Review of Systems: All systems reviewed & are unremarkable except as noted in HPI & below Physical Exam Physical Exam: Awake and alert pleasant no distress. HEENT normocephalic atraumatic mucous membranes moist. Breathing unlabored no accessory muscle use good effort. Skin shows no rashes no pallor or icterus. Neuro without focal deficits. Results & Data Results & Data Vital Signs (Past 12 Hours) Vital Signs Temp Pulse Pulse Resp BP Pulse Ox O2 Del Method 02/14/24 15:00 71 08/04/23 11:32 98.4 F 71 16 133/77 97 Room Air 08/04/23 08:00 Room Air 08/04/23 07:58 98.4 F 64 16 126/72 95 Room Air 08/04/23 07:08 71 08/04/23 04:43 97.7 F 70 18 148/61 H 96 Room Air PG Care Time/CCT Total # of Minutes Spent Total Time Spent with Patient: Total time spent is greater than 50% in coordination of care (as documented) at patient's floor/unit and/or counseling patient: Coding Level of Care Code 45440 SUB INP/OBS CARE 3/50MIN Diagnoses Multiple falls R29.6 UTI (urinary tract infection) N39.0 Hematuria presence: without hematuria Urinary tract infection type: site unspecified Orthostatic dizziness R42 Parkinsons disease G20 (2) UTI (urinary tract infection) Hematuria presence: without hematuria Urinary tract infection type: site unspecified Qualified Code(s): N39.0 - Urinary tract infection, site not specified
--- NOTE | 2023-08-04 17:04 | Hospitalist Progress Note ---
Date of Service August 04, 2023 Assessment & Plan (1) Multiple falls: (2) UTI (urinary tract infection): (3) Orthostatic dizziness: (4) Parkinsons disease: Plan (1) UTI (urinary tract infection): UA: Pérez 3+ Follow up urine culture - initial one was clean catch, second one was straight cath, both show Gram neg bacilli -Cefdinir, 300 mg, PO, BID (Ur Cx sensitivities suggested) (2) Multiple falls: Longstanding Hx of "vertigo" for the last 6 months. Hx of Parkinson's dz Worse over the last week, possibly due to UTI B12 level, 457 PT/OT consulted and have provided their assessment (3) Dizziness: 125/65 Monitor for improvement following treatment for UTI Consider further workup if not resolving after treatment for this Orthostatic hypotension measurements: supine 125/64, sitting 96/53, standing 108/62 Will consider recommending for vestibular therapy due to possibility of BPPV (4) Contusion of arm, right: Multiple areas of skin tears, graze, ecchymosis from repeated falls Unable to safely return home at this time (5) GERD (gastroesophageal reflux disease): Continue pantoprazole (6) Paroxysmal A-fib Anticoagulation with Xarelto (7) Parkinson's disease dementia: Continue her usual Sinemet and amantadine (8) Diabetes type 2, uncontrolled: HbA1C 6.8 [2/6] Patient unable to tell me her insulin regimen therefore taken from prior diabetes note Lantus 10 units QAM, 5 units QPM Novolog: --Goal BSG Range: Low 110 mg/dL, High 140 mg/dL --Correction Factor: 30 mg/dL/unit --Carbohydrate ratio = 7 g/unit --BSGs ACHS if eating, q6h if npo (9) Generalized weakness: (10) Ambulatory dysfunction: Plan VTE Prophylaxis - Xarelto Diet - T2DM Disposition - admit to med/tele Admission and Anticipated Discharge Date Admission Date: August 01, 2023 Supervising Physician Co-Signing Physician Notes I personally examined the patient and verified all valencia points of history and exam, discussed case, and agree with decision making with Dr Ng Notes that her lightheaded/near fainting episode yesterday with therapy was very consistent with a large amount of her episodes at home. Sounds like she will be able to go to [facility] for therapy later today. Vitals noted, in general she is awake and alert pleasant no distress. HEENT normocephalic atraumatic mucous membranes moist. Breathing unlabored no accessory muscle use good effort. Skin shows no rashes no pallor or icterus. 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 Given her episode yesterdayit does seem confirmatory that Parkinson's autonomic instability is at least part of her pictureand we added midodrine 2.5 mg 3 times daily yesterdayobviously this can be titrated up, or fludrocortisone added, or bothbased on the improvement of her symptoms or lack thereof. Also definitely would like to continue to follow her (at [facility] would be perfectly appropriate) to ensure there is not a mixed picture of also aneurologic vertigo at play additionally that might benefit from vestibular therapy. Left ear cerumen impactionirrigated at least to improve her hearing some Continue Debrox drops and then If needed can irrigate again chronic diastolic CHFcompensated. Anticoagulated. Otherwise as above. Subjective Patient endorses feeling better today, has not had any more episodes of dizziness, whether from orthostatic or vertiginous causes. Patient still awaiting placement to a facility after [id number] discussion for rehab at [facility] was denied. Physician at insurance company implied [facility] would be approved. Hearing is better, ears feeling better after Debrox drops. 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 eye exotropia at baseline, secondary to retinal detachment per pt) Respiratory: normal respiratory effort, lungs clear to auscultation Cardiovascular: RRR, no murmur, no edema Gastrointestinal (Abdomen): normal bowel sounds, soft, nontender, no hepatosplenomegaly Neurologic: moves all extremities and awake Cranial Nerves: PERRL, tongue midline and symmetric palate elevation; + abnormal facial strength (r. sided facial weakness) Coordination: normal eycevq-hk-bzkb test, normal hhhi-ey-ocil test and normal rapid alternating movements Psychiatric: A+Ox3, euthymic affect Results & Data Results & Data Vital Signs (Past 12 Hours) Vital Signs Temp Pulse Pulse Resp BP Pulse Ox O2 Del Method 08/04/23 15:34 36.4 C L 71 18 121/67 97 Room Air 08/04/23 15:00 71 08/04/23 11:32 36.9 C 71 16 133/77 97 Room Air 08/04/23 08:00 Room Air 08/04/23 07:58 36.9 C 64 16 126/72 95 Room Air 08/04/23 07:08 71 (2) UTI (urinary tract infection) Hematuria presence: without hematuria Urinary tract infection type: site unspecified Qualified Code(s): N39.0 - Urinary tract infection, site not specified
[2023-08-04] MEDS: MIDODRINE HCL 2.5 MG TAB PO SCH (17:27)
--- NOTE | 2023-08-05 12:41 | Billing Data ---
Date of Service August 05, 2023 Coding Level of Care Code 80757 IN/OBS DISCH 30 MIN/LESS
--- NOTE | 2023-08-18 09:12 | Discharge Summary ---
Date of Service August 05, 2023 Principal Diagnosis falls, multifactorial Discharge Exam vitals noted, nad breathing unlabored Discharge Data Allergies Allergy/AdvReac Type Severity Reaction Status Date / Time benztropine Allergy Unknown PT NOT SURE Verified 08/01/23 12:08 citalopram Allergy Unknown PT NOT SURE Verified 08/01/23 12:08 doxycycline Allergy Unknown REMOTE HX, Verified 08/01/23 12:08 PT NOT SURE REACTION minocycline Allergy Unknown REMOTE HX, Verified 08/01/23 12:08 PT NOT SURE REACTION simvastatin Allergy Unknown PT NOT SURE Verified 08/01/23 12:08 sulindac Allergy Unknown PT NOT SURE Verified 08/01/23 12:08 empagliflozin AdvReac Intermediate Recurrent Verified 08/01/23 12:08 [From Jardiance] Urinary Tract Infection Consultations 08/01/23 15:06 ED Decision to Admit Stat Ordered Studies 08/01/23 12:59 CT head/brain wo con Stat Hospital Course (1) Multiple falls: (2) UTI (urinary tract infection): (3) Orthostatic dizziness: (4) Parkinsons disease: Plan (1) UTI (urinary tract infection): UA: Pérez 3+ Follow up urine culture - initial one was clean catch, second one was straight cath, both show Gram neg bacilli -Cefdinir, 300 mg, PO, BID (Ur Cx sensitivities suggested) (2) Multiple falls: Longstanding Hx of "vertigo" for the last 6 months. Hx of Parkinson's dz see supervising physician note below - likely multiple etiologies at play (3) Dizziness: 125/65 see below (4) Contusion of arm, right: Multiple areas of skin tears, graze, ecchymosis from repeated falls Unable to safely return home at this time (5) GERD (gastroesophageal reflux disease): Continue pantoprazole (6) Paroxysmal A-fib Anticoagulation with Xarelto (7) Parkinson's disease dementia: Continue her usual Sinemet and amantadine (8) Diabetes type 2, uncontrolled: HbA1C 6.8 [2/6] (9) Generalized weakness: (10) Ambulatory dysfunction: Plan VTE Prophylaxis - Xarelto Diet - T2DM for SNF/rehab Total Time Total Time Spent Total Time Spent (In Minutes): <30 Discharge Plan Discharge Items Patient Disposition: Transfer Jail [facility] Reason For Visit: DIZZINESS, AMBULATORY DYSFUNCTION Discharge Diagnosis: UTI, dizziness, falls, ambulatory dysfunction Activity: Resume your previous activity Non-emergency contact: Primary Care Provider Call non-emergency contact if: you have any medication questions and your pain is concerning for you Follow-up/Referrals: Damaris Vega MD [Primary Care Provider] - Diet: Carb Consistent or DM2 Addtl Attending Provider Instructions: You were admitted to the hospital for increased falls, ambulatory dysfunction. You were treated with midodrine and your home mediations. A discharge summary will be sent to your primary care physician to ensure continuity of care. Please bring this discharge summary with you to your next office appointment so that your provider can review it at that time. Follow-up appointments: We have requested a follow-up appointment with your primary care physician iliana collier one week of discharge. Please call their office if you do not hear from them. Keep all your follow-up appointments as already scheduled. If you cannot make an appointment, notify your provider. Medications: Your medication list has been reviewed and reconciled upon discharge to ensure accuracy and continuity of care. An updated list of all your medications is included with your hospital discharge paperwork. Please review this list closely, and make note of any changes. We sent a new medication called midodrine to your pharmacy. Take midodrine, 2.5 mg/one tablet, three times a day, regularly. We sent a new medication called Cefdinir to your pharmacy. Take Cefdinir, 300 mg/one tablet, twice a day, for 8 more days. Take your medications as instructed; do not skip a dose of your medicines. Make sure all of your doctors know every medicine you are taking (including znoa-jff-[id number] medicines, vitamins, and supplements). Call your primary care provider before taking any new medicines (including nwgo-pux-gkbpxjn medicines, vitamins, and supplements), because some of these may interact with your current medications, or may make your symptoms worse. Tell your primary care provider if you cannot afford your medications. CONTACT YOUR PRIMARY CARE PROVIDER if you experience any of the following: increased dizziness, increased number of falls burning with urination, increased frequency or urgency of urination Difficulty following your treatment plan, or difficulty taking medications CALL 911 OR GO TO THE EMERGENCY DEPARTMENT if you experience any of the following: Sudden, severe abdominal pain or nausea/vomiting Severe chest pain, or chest pain that radiates (moves) to your jaw or arm Sudden, severe shortness of breath or difficulty breathing Thank you for allowing us to participate in your care. Pending Studies at Discharge: No Stand-Alone Forms: My [facility] Skilled Items Patient informed of condition?: Yes DNR: No Discharge Level of Care: Skilled Communicable Disease: No Discharge Prognosis: Stable Lines: None Urinary Catheter: No Medications and DC Order Prescriptions: New midodrine 2.5 mg tablet 2.5 mg PO TID Qty: 90 0RF Rx Instructions: do not give last dose of day after 6PM or within 4 hrs of bedtime Continued (DME) insulin syringe-needle U-100 [BD Insulin Syringe Ultra-Fine] 1 mL 31 gauge x 5/16 syringe See Rx Instructions .Route Qty: 300 3RF Rx Instructions: use to inject insulin three times a day atorvastatin 20 mg tablet 20 mg PO DAILY pantoprazole 20 mg tablet,delayed release (DR/EC) 20 mg PO DAILY (DME) FreeStyle Ruben 2 Sensor Kit See Rx Instructions .ROUTE .MEDSUPPLY Qty: 1 Rx Instructions: As directed amantadine HCl 100 mg capsule 100 mg PO [facility]HS (DME) OneTouch Verio test strips Strip See Rx Instructions .ROUTE .MEDSUPPLY Qty: 10 Rx Instructions: Test blood sugar once daily PRN Xarelto 20 mg tablet 20 mg PO QPM carbidopa-levodopa 25-100 mg tablet 2 tab PO QID Rx Instructions: TAKES AT 0700, 1100, 1600, 2000 clopidogrel [Plavix] 75 mg Tablet 75 mg PO DAILY amoxicillin 500 mg tablet 2,000 mg PO DIRECTED PRN (Reason: PRIOR TO DENTAL APPOINTMENTS) albuterol sulfate 90 mcg/actuation HFA aerosol inhaler 2 puffs INH 6XD PRN (Reason: shortness of breath or wheezing) Qty: 6.7 0RF cetirizine [Zyrtec] 10 mg Tablet 10 mg PO DAILY fluoxetine 20 mg capsule 20 mg PO QPM magnesium oxide 400 mg (241.3 mg magnesium) tablet 400 mg PO QAM Excedrin Migraine 250-250-65 mg Tablet 1 tab PO Q6H PRN (Reason: Migraine Headache) riboflavin (vitamin B2) 400 mg tablet 400 mg PO QAM Rx Instructions: PER PT "NOT REGULARLY". acetaminophen 500 mg tablet 1,000 mg PO Q8H PRN (Reason: pain/fever) fluticasone propionate 50 mcg/actuation [place],Suspension 1 spray INTRANASAL QAM Rx Instructions: administer into each nostril cyclosporine 0.05 % dropperette 1 drp OPB BID No Action insulin lispro [Humalog U-100 Insulin] 100 unit/mL solution See Rx Instructions continuous subcutaneous infusion CONTINOUS Qty: 20 5RF Rx Instructions: Use up to 15 units per day via insulin pump Discharge Orders: Discharge Order (Routine); Ordered 08/05/23 Ordered By: Tarun Ng Admission Data Admit Date/Time: 08/01/23 15:05 Attending Provider: Renzo Lofton Admit Provider: Kristopher Cortes Primary Care Provider: Damaris Vega Other Providers: [place],[facility]; Kristopher Cortes Other Interventions: Discharge Summary Assessment (RN) Last Done: 08/05/23 13:51 Supervising Physician Co-Signing Physician Notes 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 Given her episode yesterdayit does seem confirmatory that Parkinson's autonomic instability is at least part of her pictureand we added midodrine 2.5 mg 3 times daily during stayobviously this can be titrated up, or fludrocortisone added, or bothbased on the improvement of her symptoms or lack thereof. Also definitely would like to continue to follow her (at SNF would be perfectly appropriate) to ensure there is not a mixed picture of also a neurologic vertigo at play additionally that might benefit from vestibular therapy. Left ear cerumen impactionirrigated at least to improve her hearing some Continue Debrox drops and then If needed can irrigate again chronic diastolic CHFcompensated. Anticoagulated. Otherwise as above. Coding Level of Care Code None Diagnoses Multiple falls R29.6 UTI (urinary tract infection) N39.0 Hematuria presence: without hematuria Urinary tract infection type: site unspecified Orthostatic dizziness R42 Parkinsons disease G20
== END 2023-08-05 16:42 ==
LOC: ED 09:33 → EDINP 15:05 → INTOOBSV 15:05 → SUATTDRO 15:05 → 2N 08-02 12:35

== ENCOUNTER 2024-10-02 21:04 | Inpatient (IN) ==
--- NOTE | 2024-10-02 21:34 | Emergency Department Note ---
Impression & Plan Seizure, Cervical spinal stenosis ED Provider Note NAME: BARRINGTON VIVEROS AGE: 79 SEX: F : 1945 ARRIVES VIA: Ambulance INFORMANT: Patient, ED PROVIDER(S): Aleksandr Velasquez DO CHIEF COMPLAINT: Possible seizure HPI: The patient is a 79-year-old female who was found on the floor at her residential. She was having seizure-like activity. It was reportedly on the left side of her body. She was treated with 2 mg of Ativan prior to arrival. Reportedly the symptoms stopped. ROS: See above HPI for pertinent positives & negatives. A total of 10 systems reviewed and were otherwise negative. PAST MEDICAL HISTORY: See Below PAST SURGICAL HISTORY: See Below FAMILY HISTORY: See Below SOCIAL HISTORY: See Below HOME MEDICATIONS: See Below ALLERGIES: See Below VITALS: See Below PHYSICAL EXAMINATION: GENERAL: The patient is awake to loud verbal commands. She is slow to answer questions. EYES: The conjunctivae are clear. The pupils are round and reactive. EARS, NOSE, MOUTH AND THROAT: The nose is without any evidence of any deformity. NECK: The neck is nontender and supple. RESPIRATORY: Normal respiratory effort is noted there is no evidence of wheezing rhonchi or rales CARDIOVASCULAR: Irregular heart sounds were noted. There is no definite murmur. GASTROINTESTINAL: The abdomen is soft. Abdomen is nontender. MUSCULOSKELETAL/EXTREMITIES: There is no evidence of gross deformity full range of motion is noted in the hips and shoulders. SKIN: There is no obvious evidence of any rash. There are no petechiae, pallor or cyanosis noted. NEUROLOGIC: The patient is awake to verbal commands. She is oriented to person and place. The patient has a right-sided facial droop. 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 Strength in lower extremities does appear to be diminished but symmetric. MEDICAL DECISION MAKING: The patient is a 79-year-old female who presented to the emergency department for an evaluation after having a possible seizure. The patient did present to the emergency department and she was somewhat obtunded. This is likely secondary to the patient's Ativan she received by the prehospital personnel. The history was somewhat confusing. Initially I was told that the patient had seizure activity only in her left face and left arm. I discussed the patient's laboratory and radiographic studies with her although she was still somewhat obtunded. Given the patient's mental status on final reevaluation I discussed her condition with the on-call [facility] hospitalist. She may require further workup. The patient's condition did not reveal any other seizure activity during her time in the emergency department. Triage Nursing notes reviewed. Prior medical records reviewed Vital Signs: reviewed and remarkable for no significant abnormalities Differential diagnosis: Epilepsy, infection, hypoglycemia, electrolyte abnormalities, cardiac sources, intracerebral event, trauma, toxicologic, neurologic, syncope, as well as other pathologies. ER treatment provided: See below Diagnostics interpreted by me: ECG: EKG was obtained in the emergency department. My interpretation is atrial fibrillation at 65 bpm. There was no PVCs noted. There was no acute ST segment abnormalities noted. This was compared to a tracing from May 12, 2024. No changes were noted. Cardiac Monitoring: An order was placed for continuous cardiac monitoring. The monitor shows a rate of 58 bpm with sinus rhythm. Laboratory studies: As stated above and show below. Imaging studies: See below. Radiographic imaging was reviewed by myself Consultation(s): I discussed this case with Dr. Meza who is on-call for the [facility] hospitalist group. Past Med/Surg History Problem List (Updated 10/03/24 @ 00:36 by Aleksandr Velasquez DO) Cervical spinal stenosis (Acute) Seizure (Acute) Vitamin D deficiency Contusion of arm, right (Acute) Multiple falls (Acute) Ambulatory dysfunction (Acute) Generalized weakness (Acute) CHI (closed head injury) (Acute) Traumatic hematoma of buttock (Acute) Ambulatory dysfunction (Acute) Traumatic hematoma of forehead (Acute) GERD (gastroesophageal reflux disease) HX History of stroke in prior 3 months Paroxysmal A-fib (Acute) Facial droop (Acute) Slurred speech (Acute) Stroke (cerebrum) Brain TIA (Acute) Facial droop (Acute) Acute right-sided muscle weakness (Acute) Stroke-like symptoms Status post carotid surgery Shortness of breath (Acute) Chest pain (Acute) Dizziness (Acute) Ataxia (Acute) Hypotension (Acute) Chronic pain (Chronic) CHF (congestive heart failure) (Chronic) Edema of right lower extremity (Acute) Parkinsons disease Syncope (Acute) Closed head injury (Acute) UTI (urinary tract infection) (Acute) Pneumonia (Acute) A-fib Non-healing wound Orthostatic dizziness Vulvovaginitis (Acute) Tremor (Acute) Simple goiter (Acute) Sensory problems with limbs (Acute) Sensorineural hearing loss (SNHL) of both ears (Acute) Right asymmetrical SNHL (Acute) REM sleep behavior disorder (Acute) Parkinson's disease dementia (Acute) Papilloma of breast (Acute) 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 (Acute) Nonproliferative diabetic retinopathy of both eyes (Acute) Nausea (Acute) Migraine headache (Acute) Menopause (Acute) Hypoglycemia (Acute) Goiter (Acute) Female genital symptoms (Acute) Dyslipidemia (Acute) Diabetic peripheral neuropathy (Acute) Diabetes with neurologic complications (Acute) Diabetes type 2, uncontrolled (Acute) Depression (Acute) DM (diabetes mellitus), type 2, uncontrolled w/neurologic complication (Acute) Concussion (Acute) Cervicalgia (Acute) Cerebrovascular disease (Acute) Breast pain (Acute) Bilateral impacted cerumen (Acute) Ataxic gait (Acute) Arthritis (Acute) Acoustic neuroma (Acute) Abnormal mammogram (Acute) Acute exacerbation of CHF (congestive heart failure) Anxiety Parkinson disease (Acute) Acute on chronic diastolic congestive heart failure H/O syncope Falls Hypertension Weakness (Acute) Weakness (Acute) Hematuria Hyperlipidemia Diastolic CHF Controlled type 2 diabetes mellitus with neurologic complication, with long-term current use of insulin Type 2 diabetes mellitus with retinopathy, with long-term current use of insulin Falls Dysesthesia Alteration in tactile sense Expressive aphasia (Acute) Chest pain (Acute) Hematoma of right lower extremity (Acute) Lower extremity pain, right (Acute) Hip pain Venous stasis DVT prophylaxis Rhabdomyolysis Fall (Acute) Generalized weakness (Acute) Depression Rhabdomyolysis (Acute) Acute dehydration (Acute) Acute hyperglycemia (Acute) Metabolic acidosis (Acute) Leukocytosis Elevated troponin Peripheral neuropathy Constipation Expressive aphasia Speech abnormality (Acute) Hyperglycemia (Acute) Carotid stenosis (Acute) Acute CVA (cerebrovascular accident) Symptomatic stenosis of left carotid artery Medical History H/O head and neck radiation Stroke 08/16/22 treated at [facility]. still experiencing mild slurred speech at times, using a wheelchair, unable to ambulate at this time since her stroke. able to stand and pivot with assistance. History of colon polyps Complicated migraine "COMPLICATED MIGRAINES" - OCCUR OFTEN AND RESEMBLE SYMPTOMS OF A STROKE PER PT History of high cholesterol Acoustic neuroma FOLLOWS DR MITCHELL - UPCOMING RADIATION TREATMENT AFTER CATARACT SURGERY Chronic heart failure DVT prophylaxis Mitral valve disorder DENIES Permanent atrial fibrillation DX 2 YR AGO, NO HX CARDIOVERSION Obesity Anxiety History of TIA (transient ischemic attack) 2004 ,HX PT FOR, NO REMAINING RESIDUAL EFFECTS Hypertension HX BLOOD PRESSURE MEDICINE, ONCE A FIB DX - MED WAS D/C'D - PT REPORTS BLOOD PRESSURE USUALLY RUNS LOW AROUND 106/58 Diabetes INSULIN PUMP Parkinson disease Surgical History History of loop recorder per medical history/record. History of bunionectomy History of bilateral tubal ligation History of esophagogastroduodenoscopy (EGD) History of colonoscopy History of left knee replacement H/O breast biopsy 10/26/17 LMA#4. 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 S/P cholecystectomy HX S/P appendectomy HX Family History Mother Diabetes Congestive heart failure Colorectal cancer Hypertension Brother Congestive heart failure Colorectal cancer Sister Cancer Unknown Pancreatic cancer Son Family history of colonic polyps Social History Smoking Status: Unknown if ever smoked Second Hand Exposure: No; Do You Dip or Chew Tobacco: No; Hx Alcohol Use: No Hx Substance Use: No Preferred Language: Micronesian Communication Ability: Effective Visual Impairment: No Limitations Fire Official Required: No Beliefs That Will Affect Care: None marital status: Unknown Current Living Situation: Alone Current Living Situation Comment: with help for 4 hours a day How many Children do You have: 2 Feels Safe at Home: Yes Assistive Devices: Walker Allergies Allergies Allergy/AdvReac Type Severity Reaction Status Date / Time benztropine Allergy Unknown ON ROSCOE Verified 09/28/24 12:53 [facility] citalopram Allergy Unknown ON ROSCOE Verified 09/28/24 12:53 [facility] doxycycline Allergy Unknown REMOTE HX, Verified 09/28/24 12:53 ON [facility] minocycline Allergy Unknown REMOTE HX, Verified 09/28/24 12:53 PT NOT SURE REACTION simvastatin Allergy Unknown ON ROSCOE Verified 09/28/24 12:53 [facility] sulindac Allergy Unknown ON ROSCOE Verified 09/28/24 12:53 [facility] empagliflozin AdvReac Intermediate Recurrent Verified 09/28/24 12:53 [From Jay] Urinary Tract Infection Home Meds Home Medications Medication Instructions Recorded Confirmed flash glucose sensor (FreeStyle #1 ea 09/02/20 10/02/24 Ruben 2 Sensor kit) blood sugar diagnostic (OneTouch #10 ea 01/13/22 10/02/24 Verio test strips) clopidogrel 75 mg tablet (Plavix) 75 mg PO DAILY 08/24/22 10/02/24 uvbukup-aloczfebmpbpi-mydmymqm 250 2 tab PO DAILY PRN Migraine 04/25/23 10/02/24 mg-250 mg-65 mg tablet (Excedrin Headache Migraine) atorvastatin 20 mg tablet 20 mg PO HS 07/27/23 10/02/24 acetaminophen 325 mg tablet 650 mg PO AMHS 11/02/23 10/02/24 (Tylenol) acetaminophen 325 mg tablet 650 mg PO BID PRN PAIN/FEVER 11/02/23 10/02/24 (Tylenol) fluticasone furoate 27.5 1 spray intranasal DAILY 11/02/23 10/02/24 mcg/actuation nasal spray,suspension (Flonase Sensimist) menthol 0.44 %-zinc oxide 20.6 % 1 applic topical TID PRN 11/02/23 10/02/24 topical ointment (Calmoseptine) PROTECTANT ON BUTTOCKS nystatin 100,000 unit/gram topical 1 applic topical BID PRN 11/02/23 10/02/24 powder RASH/IRRITATION IN ABD FOLDS sennosides 8.6 mg-docusate sodium 1 tab-cap PO BID 11/02/23 10/02/24 50 mg tablet (Senna Plus) bumetanide 0.5 mg tablet 0.5 mg PO 4XWK 06/29/24 10/02/24 baclofen 10 mg tablet 10 mg PO BID PRN BACK SPASMS 10/02/24 10/02/24 bumetanide 0.5 mg tablet 0.5 mg PO DAILY PRN WT GAIN 3LBS 10/02/24 10/02/24 OR GREATER bumetanide 0.5 mg tablet 0.75 mg PO 3XWK 10/02/24 10/02/24 carbidopa 25 mg-levodopa 100 mg 2 tab PO TID 10/02/24 10/02/24 tablet carbidopa ER 25 mg-levodopa 100 mg 2 tab PO HS 10/02/24 10/02/24 tablet,extended release esomeprazole magnesium 40 mg 40 mg PO DAILY 10/02/24 10/02/24 capsule,delayed release insulin lispro 100 unit/mL 4 unit subcut QDL 10/02/24 10/02/24 subcutaneous solution (Humalog U-100 Insulin) insulin lispro 100 unit/mL 6 unit subcut QDD 10/02/24 10/02/24 subcutaneous solution (Humalog U-100 Insulin) insulin lispro 100 unit/mL 8 unit subcut QDB 10/02/24 10/02/24 subcutaneous solution (Humalog U-100 Insulin) melatonin 10 mg tablet 10 mg PO HS 10/02/24 10/02/24 mirtazapine 7.5 mg tablet 7.5 mg PO HS 10/02/24 10/02/24 spironolactone 25 mg tablet 25 mg PO DAILY 10/02/24 10/02/24 Previous Rx's Medication Instructions Recorded insulin glargine 100 unit/mL 15 unit (0.15 mL) subcut QAM #10 mL 07/03/24 subcutaneous solution (Lantus U-100 Insulin) insulin syringe,safety needle 0.5 #100 ea 07/03/24 mL 29 gauge x 1/2" (BD SafetyGlide Insulin Syringe) cholecalciferol (vitamin D3) 125 125 mcg PO DAILY #90 caps 08/22/24 mcg (5,000 unit) capsule Results & Data (ED) Vital Signs Vital Signs - 24 hr 10/02/24 21:13 10/02/24 21:24 10/02/24 21:24 Temperature 36.6 C Temperature Source Oral Pulse Rate 64 63 Pulse Rate [Apical] Pulse Rhythm [Apical] Pulse Strength [Apical] Respiratory Rate 20 Respiratory Effort / Characteristics Non-Labored Spontaneous Respiratory Depth Normal Respiratory Pattern Regular Blood Pressure 140/79 Blood Pressure [Right Arm] Blood Pressure Mean 99 Blood Pressure Mean [Right Arm] Blood Pressure Position Lying Blood Pressure Position [Right Arm] Pulse Oximetry 96 97 Oxygen Delivery Method Room Air Room Air Sepsis Recent Fever Within 48 Hours No Sepsis New/Unexplained Change in Mental Status No Sepsis Action Taken by Nursing No Action Required 10/02/24 21:24 10/02/24 21:38 10/02/24 23:00 Temperature Temperature Source Pulse Rate Pulse Rate [Apical] 71 58 L Pulse Rhythm [Apical] Regular Regular Pulse Strength [Apical] Normal Respiratory Rate 20 16 Respiratory Effort / Characteristics Non-Labored Spontaneous Non-Labored Spontaneous Respiratory Depth Normal Normal Respiratory Pattern Regular Regular Blood Pressure Blood Pressure [Right Arm] 140/79 160/64 H Blood Pressure Mean Blood Pressure Mean [Right Arm] 99 96 Blood Pressure Position Blood Pressure Position [Right Arm] Lying Pulse Oximetry 96 95 96 Oxygen Delivery Method Room Air Room Air Room Air Sepsis Recent Fever Within 48 Hours Sepsis New/Unexplained Change in Mental Status Sepsis Action Taken by Residential Medications Current Medication List: was personally reviewed by me Laboratory Data Attestation: I reviewed the patient's lab results. 10/02/24 21:16 10/02/24 21:16 Lab Results 10/02/24 10/02/24 Range/Units 21:16 21:50 WBC 4.77 L (4.8-10.8) K/ul RBC 4.61 (4.20-5.40) M/uL Hgb 12.9 (12.0-16.0) g/dl Hct 38.6 (37.0-47.0) % MCV 83.7 (80.0-100.0) fL MCH 28.0 (25.0-34.0) pg MCHC 33.4 (32.0-36.0) g/dL RDW Std Deviation 45.5 (36.4-46.3) fL RDW Coeff of Vicky 15.2 H (11.5-14.5) % Plt Count 173 (130-400) K/uL MPV 10.7 (9.4-12.4) fL Immature Gran % (Auto) 0.6 % Neut % (Auto) 66.5 % Lymph % (Auto) 22.6 % [place] % (Auto) 6.3 % Eos % (Auto) 3.4 % Baso % (Auto) 0.6 % Neut # (Auto) 3.17 (1.40-6.50) K/uL Lymph # (Auto) 1.08 L (1.20-3.40) K/uL [place] # (Auto) 0.30 (0.11-0.59) K/uL Eos # (Auto) 0.16 (0.00-0.50) K/uL Baso # (Auto) 0.03 (0.00-0.20) K/uL Immature Gran # (Auto) 0.03 (0.01-0.20) K/uL PT 10.6 (9.0-12.0) Seconds INR 1.0 (0.9-1.1) APTT 25 (21-31) Seconds PTT Ratio 0.9 VBG pH 7.40 (7.36-7.41) VBG pCO2 45 (38-50) mmHg VBG pO2 54 mmHg VBG HCO3 28 mmol/L VBG O2 Saturation 87.5 % VBG Base Excess 2.5 mEq/L Sodium 137 (136-145) mmol/L Potassium 4.3 (3.5-5.1) mmol/L Chloride 103 (98-107) mmol/L Carbon Dioxide 28 (21-32) mmol/L Anion Gap 6 (3-11) BUN 23 (6-23) mg/dl Creatinine 0.85 (0.6-1.2) mg/dl Est Cr Clr Drug Dosing 61.4 ml/min eGFR 70.08 BUN/Creatinine Ratio 27.1 H (10-20) Glucose 287 H (70-99(Fasting)) mg/dl Calcium 9.2 (8.6-10.3) mg/dl Magnesium 1.9 (1.7-2.4) mg/dl Total Bilirubin 0.9 (0.2-1.0) mg/dl AST 14 (13-39) U/L ALT < 3 L (7-52) U/L Alkaline Phosphatase 78 (34-104) U/L Total Creatine Kinase 45 (26-192) U/L Troponin I High Sens 5.0 (0-14) pg/ml Total Protein 6.8 (6.0-8.3) gm/dl Albumin 4.3 (3.4-5.0) gm/dl Globulin 2.5 (2.5-4.0) gm/dl Albumin/Globulin Ratio 1.7 (0.9-2) Lipase 11 (11-82) U/L TSH 1.719 (0.300-4.500) uIu/ml Imaging Data Attestation: I personally reviewed and interpreted this imaging study as follows: My Impression: Head CT was obtained in the emergency department. My interpretation is no intracranial hemorrhage or mass effect, final report below. 1 view chest x-ray was obtained in the emergency department. My interpretation is no free air or definite infiltrate, final report below. Radiologist's Impression: Head CT 10/02/24 21:29 Exam(s): CT HEAD Without Contrast EXAM: CT Head Without Intravenous Contrast CLINICAL HISTORY: Reason for exam: syncope. TECHNIQUE: Axial computed tomography images of the head/brain without intravenous contrast. Automated exposure control was utilized for the study. A dose lowering technique was utilized adhering to the principles of ALARA. COMPARISON: Prior head CT from November 04, 2018. FINDINGS: Brain: Unremarkable. No hemorrhage. Mild nonspecific white matter changes. No edema. Ventricles: Mild ventriculomegaly. Bones/joints: Unremarkable. No acute fracture. Soft tissues: Left retinal banding with silicone in the posterior chamber. Sinuses: Unremarkable as visualized. No acute sinusitis. Mastoid air cells: Unremarkable as visualized. No mastoid effusion. IMPRESSION: No evidence of acute intracranial pathology. Electronically signed by: Sue Orantes MD 10/02/24 23:[address] 10/02/24 21:38 Exam(s): CT C SPINE EXAM: CT Cervical Spine Without Intravenous Contrast CLINICAL HISTORY: Reason for exam: found on floor. TECHNIQUE: Axial computed tomography images of the cervical spine without intravenous contrast. Automated exposure control was utilized for the study. A dose lowering technique was utilized adhering to the principles of ALARA. COMPARISON: No relevant prior studies available. FINDINGS: Vertebrae: Unremarkable. No acute fracture. Discs/spinal canal/neural foramina: No acute findings. There is a critical spinal canal stenosis at C5-6 and C6-7 as severe stenosis at C4- 5.. 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 Left carotid stents in place. IMPRESSION: No acute cervical spine pathology. Critical spinal canal stenosis at C5-6 and C6-7. Recommend MRI of the cervical spine to evaluate for myelopathy. Electronically signed by: Sue Orantes MD 10/03/24 00:14 AM Discharge Plan Visit Data Chief Complaint: Seizure Stated Complaint: POSSIBLE SEIZURE, TWITCHING TO LIP AND ARM ED Provider: Aleksandr Velasquez Discharge Problem: Seizure, Cervical spinal stenosis Patient Disposition: Being Evaluated by Hospitalist Forms Stand Alone Forms: My [facility] [place] [employer] Prescriptions Prescriptions: No Action insulin glargine [Lantus U-100 Insulin] 100 unit/mL solution 15 unit subcut QAM Qty: 10 1RF Rx Instructions: To be used for pump failure. Inject 15 units of Lantus (DME) BD SafetyGlide Insulin Syringe 0.5 mL 29 gauge x 1/2" syringe See Rx Instructions .Route Qty: 100 1RF Rx Instructions: Inject up to 4x a day if pump failed cholecalciferol (vitamin D3) 125 mcg (5,000 unit) capsule 125 mcg PO DAILY Qty: 90 1RF atorvastatin 20 mg tablet 20 mg PO HS (DME) FreeStyle Ruben 2 Sensor Kit See Rx Instructions .ROUTE .MEDSUPPLY Qty: 1 Rx Instructions: As directed (DME) OneTouch Verio test strips Strip See Rx Instructions .ROUTE .MEDSUPPLY Qty: 10 Rx Instructions: Test blood sugar once daily PRN clopidogrel [Plavix] 75 mg Tablet 75 mg PO DAILY Excedrin Migraine 250-250-65 mg Tablet 2 tab PO DAILY PRN (Reason: Migraine Headache) spironolactone 25 mg tablet 25 mg PO DAILY baclofen 10 mg tablet 10 mg PO BID PRN (Reason: BACK SPASMS) bumetanide 0.5 mg tablet 0.75 mg PO 3XWK Rx Instructions: TAKE 1 & 1/2 TABLET DAILY ON WEDNESDAY/WEDNESDAY/WEDNESDAY mirtazapine 7.5 mg tablet 7.5 mg PO HS melatonin 10 mg Tablet 10 mg PO HS carbidopa-levodopa 25-100 mg tablet extended release 2 tab PO HS Rx Instructions: TAKE NIGHTLY AT 8 PM carbidopa-levodopa 25-100 mg tablet 2 tab PO TID bumetanide 0.5 mg tablet 0.5 mg PO DAILY PRN (Reason: WT GAIN 3LBS OR GREATER) Rx Instructions: TAKE IN ADDITION TO ROUTINE FOR EDEMA insulin lispro [Humalog U-100 Insulin] 100 unit/mL solution 4 unit subcut QDL insulin lispro [Humalog U-100 Insulin] 100 unit/mL solution 6 unit subcut QDD insulin lispro [Humalog U-100 Insulin] 100 unit/mL solution 8 unit subcut QDB esomeprazole magnesium 40 mg capsule,delayed release(DR/EC) 40 mg PO DAILY acetaminophen [Tylenol] 325 mg Tablet 650 mg PO AMHS acetaminophen [Tylenol] 325 mg Tablet 650 mg PO BID MDD 3 GRAMS APAP/24 HOURS PRN (Reason: PAIN/FEVER) sennosides-docusate sodium [Senna Plus] 8.6-50 mg Tablet 1 tab-cap PO BID nystatin 100,000 unit/gram Powder 1 applic TOPICAL BID PRN (Reason: RASH/IRRITATION IN ABD FOLDS) Rx Instructions: ABDOMINAL FOLDS AND UNDER BREASTS Flonase Sensimist 27.5 mcg/actuation Wing,Suspension 1 spray INTRANASAL DAILY Rx Instructions: into each nostril menthol-zinc oxide [Calmoseptine] 0.44-20.6 % Ointment 1 applic TOPICAL TID PRN (Reason: PROTECTANT ON BUTTOCKS) bumetanide 0.5 mg tablet 0.5 mg PO 4XWK Rx Instructions: TAKE 1 TABLET DAILY ON WEDNESDAY/WEDNESDAY/WEDNESDAY/WEDNESDAY Referrals Referrals: Damaris Vega MD [Primary Care Provider] -
[2024-10-02 21:49] LABS: Basophils # (auto) 0.03 K/uL (0.00-0.20); Basophils % (auto) 0.6 %; Eosinophils # (auto) 0.16 K/uL (0.00-0.50); Eosinophils % (auto) 3.4 %; Hematocrit (blood only) 38.6 % (37.0-47.0); Hemoglobin 12.9 g/dl (12.0-16.0); Immature Granulocytes # (auto) 0.03 K/uL (0.01-0.20); Immature Granulocytes % (auto) 0.6 %; Lymphocytes # (auto) 1.08 K/uL (1.20-3.40); Lymphocytes % (auto) 22.6 %; Mean Corpuscular Hgb Conc 33.4 g/dL (32.0-36.0); Mean Corpuscular Volume 83.7 fL (80.0-100.0); Mean Platelet Volume 10.7 fL (9.4-12.4); Monocytes % (auto) 6.3 %; Neutrophils # (auto) 3.17 K/uL (1.40-6.50); Neutrophils % (auto) 66.5 %; Platelet Count 173 K/uL (130-400); RDW Coefficient of Variation 15.2 % (11.5-14.5); RDW Standard Deviation 45.5 fL (36.4-46.3); Red Blood Count 4.61 M/uL (4.20-5.40); White Blood Count 4.77 K/ul (4.8-10.8)
[2024-10-02 22:03] LABS: Anion Gap 6 (3-11); BUN Creatinine Ratio 27.1 (10-20); Blood Urea Nitrogen 23 mg/dl (6-23); Calcium 9.2 mg/dl (8.6-10.3); Carbon Dioxide 28 mmol/L (21-32); Chloride 103 mmol/L (98-107); Creatinine Clr Calc Pharmacy 61.4 ml/min; Glucose 287 mg/dl (70-99(Fasting)); Potassium 4.3 mmol/L (3.5-5.1); Sodium 137 mmol/L (136-145)
[2024-10-02 22:13] LABS: Alanine Aminotransferase < 3 U/L (7-52); Albumin Globulin Ratio 1.7 (0.9-2); Albumin Level 4.3 gm/dl (3.4-5.0); Alkaline Phosphatase 78 U/L (34-104); Aspartate Aminotransferase 14 U/L (13-39); Bilirubin,Total 0.9 mg/dl (0.2-1.0); Creatine Kinase 45 U/L (26-192); Globulin 2.5 gm/dl (2.5-4.0); Lipase 11 U/L (11-82); Magnesium 1.9 mg/dl (1.7-2.4); Total Protein 6.8 gm/dl (6.0-8.3)
[2024-10-02 22:14] LABS: Base Excess VBG 2.5 mEq/L; HCO3 VBG 28 mmol/L; Oxygen Saturation VBG 87.5 %; PCO2 VBG 45 mmHg (38-50); PO2 VBG 54 mmHg
[2024-10-02 22:18] LABS: Thyroid Stimulating Hormone 1.719 uIu/ml (0.300-4.500)
[2024-10-02 22:37] LABS: Partial Thromboplastin Ratio 0.9; Partial Thromboplastin Time 25 Seconds (21-31); Prothrombin Time 10.6 Seconds (9.0-12.0)
--- NOTE | 2024-10-03 | CT Scan Report ---
Exam(s): CT HEAD Without Contrast EXAM: CT Head Without Intravenous Contrast CLINICAL HISTORY: Reason for exam: syncope. TECHNIQUE: Axial computed tomography images of the head/brain without intravenous contrast. Automated exposure control was utilized for the study. A dose lowering technique was utilized adhering to the principles of ALARA. COMPARISON: Prior head CT from November 04, 2018. FINDINGS: Brain: Unremarkable. No hemorrhage. Mild nonspecific white matter changes. No edema. Ventricles: Mild ventriculomegaly. Bones/joints: Unremarkable. No acute fracture. Soft tissues: Left retinal banding with silicone in the posterior chamber. Sinuses: Unremarkable as visualized. No acute sinusitis. Mastoid air cells: Unremarkable as visualized. No mastoid effusion. IMPRESSION: No evidence of acute intracranial pathology. Electronically signed by: Sue Orantes MD 10/02/24 23:59 PM
--- NOTE | 2024-10-03 00:15 | CT Scan Report ---
Exam(s): CT C SPINE EXAM: CT Cervical Spine Without Intravenous Contrast CLINICAL HISTORY: Reason for exam: found on floor. TECHNIQUE: Axial computed tomography images of the cervical spine without intravenous contrast. Automated exposure control was utilized for the study. A dose lowering technique was utilized adhering to the principles of ALARA. COMPARISON: No relevant prior studies available. FINDINGS: Vertebrae: Unremarkable. No acute fracture. Discs/spinal canal/neural foramina: No acute findings. There is a critical spinal canal stenosis at C5-6 and C6-7 as severe stenosis at C4- 5.. 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 Left carotid stents in place. IMPRESSION: No acute cervical spine pathology. Critical spinal canal stenosis at C5-6 and C6-7. Recommend MRI of the cervical spine to evaluate for myelopathy. Electronically signed by: Sue Orantes MD 10/03/24 00:14 AM
--- NOTE | 2024-10-03 01:31 | History & Physical Report ---
Date of Service October 03, 2024 Assessment & Plan (1) Seizure: (2) Parkinsons disease: (3) A-fib: (4) Diabetes type 2, uncontrolled: (5) CHF (congestive heart failure): (6) Dyslipidemia: (7) GERD (gastroesophageal reflux disease): Plan 71-year-old female with multiple medical comorbidities, prior CVA with right- sided deficit at baseline, Parkinson's disease presenting from her [facility] after being found down. Questionable seizure activity involving left side. Patient is now awake, continues to be more alert and responsive. She is unable to provide history of events prior to arrival. Denies having prior seizure #Seizureetiology unclear. Electrolytes and blood glucose are within normal limits. Observation telemetry Maintain seizure precautions Check MRI brain Check EEG Ativan as needed for seizure activity #Prior TIA Continue Plavix Continue atorvastatin #Parkinson disease Continue carbidopa/levodopa at home dose #Paroxysmal atrial fibrillation Rate controlled Patient is not on any rate controlling agents or blood thinners at present #Diabetes Lantus 15 units every morning Insulin sliding scale #CHFcompensated Continue Bumex at home dose Continue spironolactone #Hyperlipidemia Continue atorvastatin History of Present Illness Chief Complaint: Seizure Primary Care Provider: Damaris Vega MD Sabine Lainez is an 79-year-old female with history of prior stroke, hypertension, diabetes, hyperlipidemia, GERD, paroxysmal atrial fibrillation and Parkinson's disease presenting from her [facility] after being found down. Patient is unable to provide history. No family or staff at bedside. Patient reportedly found down on the ground with some left-sided muscular twitching, concern for focal seizure. She was given Ativan 2 mg IV prior to arrival. On exam she reports "my arm hurts" otherwise she reports feeling okay. Denies chest pain, palpitations, cough, shortness of breath, abdominal pain, nausea, vomiting, diarrhea In the ER she is afebrile, hemodynamically stable. Still somnolent although waking up and more responsive Allergies Allergy/AdvReac Type Severity Reaction Status Date / Time benztropine Allergy Unknown ON [facility] Verified 09/28/24 12:53 [facility] citalopram Allergy Unknown ON [facility] Verified 09/28/24 12:53 [facility] doxycycline Allergy Unknown REMOTE HX, Verified 09/28/24 12:53 ON [facility] MED L[facility] minocycline Allergy Unknown REMOTE HX, Verified 09/28/24 12:53 PT NOT SURE REACTION simvastatin Allergy Unknown ON [place] Verified 09/28/24 12:53 [facility] sulindac Allergy Unknown ON [facility] Verified 09/28/24 12:53 [facility] empagliflozin AdvReac Intermediate Recurrent Verified 09/28/24 12:53 [[facility]] Urinary Tract Infection Home Medications Medication Instructions Recorded Confirmed Type flash glucose sensor (FreeStyle #1 ea 09/02/20 10/02/24 History Ruben 2 Sensor kit) blood sugar diagnostic (OneTouch #10 ea 01/13/22 10/02/24 History Verio test strips) clopidogrel 75 mg tablet (Plavix) 75 mg PO DAILY 08/24/22 10/02/24 History xedmbpt-uqduyqukrwwum-xdvwrmkh 250 2 tab PO DAILY PRN Migraine 04/25/23 10/02/24 History mg-250 mg-65 mg tablet (Excedrin Headache Migraine) atorvastatin 20 mg tablet 20 mg PO HS 07/27/23 10/02/24 History acetaminophen 325 mg tablet 650 mg PO AMHS 11/02/23 10/02/24 History (Tylenol) acetaminophen 325 mg tablet 650 mg PO BID PRN PAIN/FEVER 11/02/23 10/02/24 History (Tylenol) fluticasone furoate 27.5 1 spray intranasal DAILY 11/02/23 10/02/24 History mcg/actuation nasal spray,suspension (Flonase Sensimist) menthol 0.44 %-zinc oxide 20.6 % 1 applic topical TID PRN 11/02/23 10/02/24 History topical ointment (Calmoseptine) PROTECTANT ON BUTTOCKS nystatin 100,000 unit/gram topical 1 applic topical BID PRN 11/02/23 10/02/24 History powder RASH/IRRITATION IN ABD FOLDS sennosides 8.6 mg-docusate sodium 1 tab-cap PO BID 11/02/23 10/02/24 History 50 mg tablet (Senna Plus) bumetanide 0.5 mg tablet 0.5 mg PO 4XWK 06/29/24 10/02/24 History insulin glargine 100 unit/mL 15 unit (0.15 mL) subcut QAM #10 mL 07/03/24 10/02/24 Rx subcutaneous solution (Lantus U-100 Insulin) insulin syringe,safety needle 0.5 #100 ea 07/03/24 10/02/24 Rx mL 29 gauge x 1/2" (BD SafetyGlide Insulin Syringe) cholecalciferol (vitamin D3) 125 125 mcg PO DAILY #90 caps 08/22/24 10/02/24 Rx mcg (5,000 unit) capsule baclofen 10 mg tablet 10 mg PO BID PRN BACK SPASMS 10/02/24 10/02/24 History bumetanide 0.5 mg tablet 0.5 mg PO DAILY PRN WT GAIN 3LBS 10/02/24 10/02/24 History OR GREATER bumetanide 0.5 mg tablet 0.75 mg PO 3XWK 10/02/24 10/02/24 History carbidopa 25 mg-levodopa 100 mg 2 tab PO TID 10/02/24 10/02/24 History tablet carbidopa ER 25 mg-levodopa 100 mg 2 tab PO HS 10/02/24 10/02/24 History tablet,extended release esomeprazole magnesium 40 mg 40 mg PO DAILY 10/02/24 10/02/24 History capsule,delayed release insulin lispro 100 unit/mL 4 unit subcut QDL 10/02/24 10/02/24 History subcutaneous solution (Humalog U-100 Insulin) insulin lispro 100 unit/mL 6 unit subcut QDD 10/02/24 10/02/24 History subcutaneous solution (Humalog U-100 Insulin) insulin lispro 100 unit/mL 8 unit subcut QDB 10/02/24 10/02/24 History subcutaneous solution (Humalog U-100 Insulin) melatonin 10 mg tablet 10 mg PO HS 10/02/24 10/02/24 History mirtazapine 7.5 mg tablet 7.5 mg PO HS 10/02/24 10/02/24 History spironolactone 25 mg tablet 25 mg PO DAILY 10/02/24 10/02/24 History Past Med/Surg History Problem List Cervical spinal stenosis (Acute) Seizure (Acute) Vitamin D deficiency Contusion of arm, right (Acute) Multiple falls (Acute) Ambulatory dysfunction (Acute) Generalized weakness (Acute) CHI (closed head injury) (Acute) Traumatic hematoma of buttock (Acute) Ambulatory dysfunction (Acute) Traumatic hematoma of forehead (Acute) GERD (gastroesophageal reflux disease) HX History of stroke in prior 3 months Paroxysmal A-fib (Acute) Facial droop (Acute) Slurred speech (Acute) Stroke (cerebrum) Brain TIA (Acute) Facial droop (Acute) Acute right-sided muscle weakness (Acute) Stroke-like symptoms Status post carotid surgery Shortness of breath (Acute) Chest pain (Acute) Dizziness (Acute) Ataxia (Acute) Hypotension (Acute) Chronic pain (Chronic) CHF (congestive heart failure) (Chronic) Edema of right lower extremity (Acute) Parkinsons disease Syncope (Acute) Closed head injury (Acute) UTI (urinary tract infection) (Acute) Pneumonia (Acute) A-fib Non-healing wound Orthostatic dizziness Vulvovaginitis (Acute) Tremor (Acute) Simple goiter (Acute) Sensory problems with limbs (Acute) Sensorineural hearing loss (SNHL) of both ears (Acute) Right asymmetrical SNHL (Acute) REM sleep behavior disorder (Acute) Parkinson's disease dementia (Acute) Papilloma of breast (Acute) 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 (Acute) Nonproliferative diabetic retinopathy of both eyes (Acute) Nausea (Acute) Migraine headache (Acute) Menopause (Acute) Hypoglycemia (Acute) Goiter (Acute) Female genital symptoms (Acute) Dyslipidemia (Acute) Diabetic peripheral neuropathy (Acute) Diabetes with neurologic complications (Acute) Diabetes type 2, uncontrolled (Acute) Depression (Acute) DM (diabetes mellitus), type 2, uncontrolled w/neurologic complication (Acute) Concussion (Acute) Cervicalgia (Acute) Cerebrovascular disease (Acute) Breast pain (Acute) Bilateral impacted cerumen (Acute) Ataxic gait (Acute) Arthritis (Acute) Acoustic neuroma (Acute) Abnormal mammogram (Acute) Acute exacerbation of CHF (congestive heart failure) Anxiety Parkinson disease (Acute) Acute on chronic diastolic congestive heart failure H/O syncope Falls Hypertension Weakness (Acute) Weakness (Acute) Hematuria Hyperlipidemia Diastolic CHF Controlled type 2 diabetes mellitus with neurologic complication, with long-term current use of insulin Type 2 diabetes mellitus with retinopathy, with long-term current use of insulin Falls Dysesthesia Alteration in tactile sense Expressive aphasia (Acute) Chest pain (Acute) Hematoma of right lower extremity (Acute) Lower extremity pain, right (Acute) Hip pain Venous stasis DVT prophylaxis Rhabdomyolysis Fall (Acute) Generalized weakness (Acute) Depression Rhabdomyolysis (Acute) Acute dehydration (Acute) Acute hyperglycemia (Acute) Metabolic acidosis (Acute) Leukocytosis Elevated troponin Peripheral neuropathy Constipation Expressive aphasia Speech abnormality (Acute) Hyperglycemia (Acute) Carotid stenosis (Acute) Acute CVA (cerebrovascular accident) Symptomatic stenosis of left carotid artery Medical History H/O head and neck radiation Stroke 08/16/22 treated at [facility]. still experiencing mild slurred speech at times, using a wheelchair, unable to ambulate at this time since her stroke. able to stand and pivot with assistance. History of colon polyps Complicated migraine "COMPLICATED MIGRAINES" - OCCUR OFTEN AND RESEMBLE SYMPTOMS OF A STROKE PER PT History of high cholesterol Acoustic neuroma FOLLOWS DR MITCHELL - UPCOMING RADIATION TREATMENT AFTER CATARACT SURGERY Chronic heart failure DVT prophylaxis Mitral valve disorder DENIES Permanent atrial fibrillation DX 2 YR AGO, NO HX CARDIOVERSION Obesity Anxiety History of TIA (transient ischemic attack) 2004 ,HX PT FOR, NO REMAINING RESIDUAL EFFECTS Hypertension HX BLOOD PRESSURE MEDICINE, ONCE A FIB DX - MED WAS D/C'D - PT REPORTS BLOOD PRESSURE USUALLY RUNS LOW AROUND 106/58 Diabetes INSULIN PUMP Parkinson disease Surgical History History of loop recorder per medical history/record. History of bunionectomy History of bilateral tubal ligation History of esophagogastroduodenoscopy (EGD) History of colonoscopy History of left knee replacement H/O breast biopsy 10/26/17 LMA#4. 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 S/P cholecystectomy HX S/P appendectomy HX Family History Mother Diabetes Congestive heart failure Colorectal cancer Hypertension Brother Congestive heart failure Colorectal cancer Sister Cancer Unknown Pancreatic cancer Son Family history of colonic polyps Social History Smoking Status: Unknown if ever smoked Second Hand Exposure: No; Do You Dip or Chew Tobacco: No; Hx Alcohol Use: No Hx Substance Use: No Preferred Language: Bahraini Communication Ability: Effective Visual Impairment: No Limitations Manager Molecular Required: No Beliefs That Will Affect Care: None marital status: Unknown Current Living Situation: Alone Current Living Situation Comment: with help for 4 hours a day How many Children do You have: 2 Feels Safe at Home: Yes Assistive Devices: Walker Review of Systems Review of Systems: All systems reviewed & are unremarkable except as noted in HPI & below Physical Exam Physical Exam: General: Patient is somnolent, arousable, answering questions in 1-2 word answers Skin: warm, dry, intact, no rashes or lesions HEENT: NC/AT, PERRL, EOMI, anicteric sclera, conjunctiva without injection, external ear normal to inspection and nontender, nares patent, moist mucus membranes, dentition intact, no oropharyngeal lesions, neck supple, trachea midline, no LAD, no thyromegaly, no JVD Heart: +S1/S2, regular, no m/r/g Lungs: equal air entry bilaterally, no rales/rhonchi/wheezes Abd: +BS, soft, NT/ND, no masses/organomegaly/ascites Ext: warm, 2+ pulses in UE/LE bilaterally, no clubbing/cyanosis or edema Neuro: patient oriented to person and location. Right-sided weakness. Results & Data Results & Data Vital Signs (Past 12 Hours) Vital Signs Temp Pulse Pulse Resp BP BP Pulse Ox 10/03/24 01:22 61 10/02/24 23:00 58 L 16 160/64 H 96 10/02/24 21:38 95 10/02/24 21:24 71 20 140/79 96 10/02/24 21:24 97 10/02/24 21:24 36.6 C 63 20 140/79 96 10/02/24 21:13 64 O2 Del Method 10/03/24 01:22 10/02/24 23:00 Room Air 10/02/24 21:38 Room Air 10/02/24 21:24 Room Air 10/02/24 21:24 Room Air 10/02/24 21:24 Room Air 10/02/24 21:13 Laboratory Results Laboratory Results WBC 4.77 K/ul (4.8-10.8) L 10/02/24 21:16 RBC 4.61 M/uL (4.20-5.40) 10/02/24 21:16 Hgb 12.9 g/dl (12.0-16.0) 10/02/24 21:16 Hct 38.6 % (37.0-47.0) 10/02/24 21:16 MCV 83.7 fL (80.0-100.0) 10/02/24 21:16 MCH 28.0 pg (25.0-34.0) 10/02/24 21:16 MCHC 33.4 g/dL (32.0-36.0) 10/02/24 21:16 RDW Std Deviation 45.5 fL (36.4-46.3) 10/02/24 21:16 RDW Coeff of Vicky 15.2 % (11.5-14.5) H 10/02/24 21:16 Plt Count 173 K/uL (130-400) 10/02/24 21:16 MPV 10.7 fL (9.4-12.4) 10/02/24 21:16 Immature Gran % (Auto) 0.6 % 10/02/24 21:16 Neut % (Auto) 66.5 % 10/02/24 21:16 Lymph % (Auto) 22.6 % 10/02/24 21:16 [place] % (Auto) 6.3 % 10/02/24 21:16 Eos % (Auto) 3.4 % 10/02/24 21:16 Baso % (Auto) 0.6 % 10/02/24 21:16 Neut # (Auto) 3.17 K/uL (1.40-6.50) 10/02/24 21:16 Lymph # (Auto) 1.08 K/uL (1.20-3.40) L 10/02/24 21:16 [place] # (Auto) 0.30 K/uL (0.11-0.59) 10/02/24 21:16 Eos # (Auto) 0.16 K/uL (0.00-0.50) 10/02/24 21:16 Baso # (Auto) 0.03 K/uL (0.00-0.20) 10/02/24 21:16 Immature Gran # (Auto) 0.03 K/uL (0.01-0.20) 10/02/24 21:16 PT 10.6 Seconds (9.0-12.0) 10/02/24 21:16 INR 1.0 (0.9-1.1) 10/02/24 21:16 APTT 25 Seconds (21-31) 04/14/25 21:16 PTT Ratio 0.9 10/02/24 21:16 VBG pH 7.40 (7.36-7.41) 10/02/24 21:50 VBG pCO2 45 mmHg (38-50) 10/02/24 21:50 VBG pO2 54 mmHg 10/02/24 21:50 VBG HCO3 28 mmol/L 10/02/24 21:50 VBG O2 Saturation 87.5 % 10/02/24 21:50 VBG Base Excess 2.5 mEq/L 10/02/24 21:50 Sodium 137 mmol/L (136-145) 10/02/24 21:16 Potassium 4.3 mmol/L (3.5-5.1) 10/02/24 21:16 Chloride 103 mmol/L (98-107) 10/02/24 21:16 Carbon Dioxide 28 mmol/L (21-32) 10/02/24 21:16 Anion Gap 6 (3-11) 10/02/24 21:16 BUN 23 mg/dl (6-23) 10/02/24 21:16 Creatinine 0.85 mg/dl (0.6-1.2) 10/02/24 21:16 Est Cr Clr Drug Dosing 61.4 ml/min 10/02/24 21:16 eGFR 70.08 10/02/24 21:16 BUN/Creatinine Ratio 27.1 (10-20) H 10/02/24 21:16 Glucose 287 mg/dl (70-99(Fasting)) H 10/02/24 21:16 Calcium 9.2 mg/dl (8.6-10.3) 10/02/24 21:16 Magnesium 1.9 mg/dl (1.7-2.4) 10/02/24 21:16 Total Bilirubin 0.9 mg/dl (0.2-1.0) 10/02/24 21:16 AST 14 U/L (13-39) 10/02/24 21:16 ALT < 3 U/L (7-52) L 10/02/24 21:16 Alkaline Phosphatase 78 U/L (34-104) 10/02/24 21:16 Total Creatine Kinase 45 U/L (26-192) 10/02/24 21:16 Troponin I High Sens 5.0 pg/ml (0-14) 10/02/24 21:16 Total Protein 6.8 gm/dl (6.0-8.3) 10/02/24 21:16 Albumin 4.3 gm/dl (3.4-5.0) 10/02/24 21:16 Globulin 2.5 gm/dl (2.5-4.0) 10/02/24 21:16 Albumin/Globulin Ratio 1.7 (0.9-2) 10/02/24 21:16 Lipase 11 U/L (11-82) 10/02/24 21:16 TSH 1.719 uIu/ml (0.300-4.500) 10/02/24 21:[address] 10/02/24 21:29 Exam(s): CT HEAD Without Contrast EXAM: CT Head Without Intravenous Contrast CLINICAL HISTORY: Reason for exam: syncope. TECHNIQUE: Axial computed tomography images of the head/brain without intravenous contrast. Automated exposure control was utilized for the study. A dose lowering technique was utilized adhering to the principles of ALARA. COMPARISON: Prior head CT from November 04, 2018. FINDINGS: Brain: Unremarkable. No hemorrhage. Mild nonspecific white matter changes. No edema. Ventricles: Mild ventriculomegaly. Bones/joints: Unremarkable. No acute fracture. Soft tissues: Left retinal banding with silicone in the posterior chamber. Sinuses: Unremarkable as visualized. No acute sinusitis. Mastoid air cells: Unremarkable as visualized. No mastoid effusion. IMPRESSION: No evidence of acute intracranial pathology. Electronically signed by: Sue Orantes MD 10/02/24 23:[address] 10/02/24 21:38 Exam(s): CT C SPINE EXAM: CT Cervical Spine Without Intravenous Contrast CLINICAL HISTORY: Reason for exam: found on floor. TECHNIQUE: Axial computed tomography images of the cervical spine without intravenous contrast. Automated exposure control was utilized for the study. A dose lowering technique was utilized adhering to the principles of ALARA. COMPARISON: No relevant prior studies available. FINDINGS: Vertebrae: Unremarkable. No acute fracture. Discs/spinal canal/neural foramina: No acute findings. There is a critical spinal canal stenosis at C5-6 and C6-7 as severe stenosis at C4- 5.. 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 Left carotid stents in place. IMPRESSION: No acute cervical spine pathology. Critical spinal canal stenosis at C5-6 and C6-7. Recommend MRI of the cervical spine to evaluate for myelopathy. Electronically signed by: Sue Orantes MD 10/03/24 00:14 AM PG Care Time/CCT Total # of Minutes Spent Total Time Spent with Patient: Total time spent is greater than 50% in coordination of care (as documented) at patient's floor/unit and/or counseling patient: Coding Level of Care Code 32239 INT INP/OBS CARE 3/75MIN Diagnoses Seizure R56.9 Parkinsons disease G20 A-fib I48.91 Diabetes type 2, uncontrolled E11.65 CHF (congestive heart failure) I50.9 Dyslipidemia E78.5 GERD (gastroesophageal reflux disease) K21.9
[2024-10-03] MEDS ORDERED: GLUCOSE 40% GEL 15 GM TUBE PO PRN (03:34)
[2024-10-03] MEDS ORDERED: GLUCOSE 10 TAB/TUBE PO PRN (03:34)
[2024-10-03] MEDS ORDERED: CARBOHYDRATES FOR HYPOGLYCEMIA PO PRN (03:34)
[2024-10-03] MEDS ORDERED: DEXTROSE 50% 50 ML SYRINGE IV PRN (03:34)
[2024-10-03] MEDS ORDERED: ONDANSETRON INJ 2 MG/ML 2 ML VIAL IV PRN (03:34)
[2024-10-03] MEDS ORDERED: GLUCAGON FOR INJ 1 MG VIAL SQ PRN (03:34)
[2024-10-03] MEDS ORDERED: LORazepam 2 MG/1 ML VIAL IV PRN (03:34)
[2024-10-03] MEDS: LANTUS PER UNIT CHARGE SQ SCH (05:49)
--- NOTE | 2024-10-03 07:03 | XRay Report ---
EXAM: XR chest 1V portable CLINICAL HISTORY: Seizure. TECHNIQUE: An X-ray image of the chest is obtained in AP projection. COMPARISON: No prior studies are available for comparison. FINDINGS: Pulmonary Parenchyma: There are prominent bilateral interstitial lung markings with faint, tiny bi-basilar infilrates. This may be due to pulmonary edema or atypical pneumonitis. A blunted right costophrenic angle could be due to small pleural effusion/pleural thickening. Heart and Mediastinum: Cardiomegaly. Aortic atheromatous calcification. No mediastinal widening or masses. No hilar or mediastinal lymphadenopathy. Bony Thorax: The right 2nd and 3rd ribs have chronic appearing fractures. Soft Tissues: Soft tissues overlying the chest wall are unremarkable. IMPRESSION: 1. There are prominent bilateral interstitial lung markings with faint, tiny bi-basilar infilrates. This may be due to pulmonary edema or atypical pneumonitis. 2. A blunted right costophrenic angle could be due to small pleural effusion/pleural thickening. 3. Cardiomegaly. Electronically signed by Cyrus Page 10-03-2024 07:02 AM
[2024-10-03] MEDS: SPIRONOLACTONE 25 MG TAB PO SCH (08:03)
[2024-10-03] MEDS: CLOPIDOGREL BISULFATE 75 MG TAB PO SCH (08:03)
[2024-10-03] MEDS: ACETAMINOPHEN 325 MG TAB PO SCH (08:04)
[2024-10-03] MEDS: CARBIDOPA/LEVODOPA 25/100MG TAB PO SCH (08:04)
[2024-10-03] MEDS: DOCUSATE SODIUM/SENNA 50/8.6MG TAB PO SCH (08:04)
[2024-10-03] MEDS: BUMETANIDE 1 MG TAB PO SCH (08:04)
[2024-10-03] MEDS: INSULIN ASPART PER UNIT CHARGE SC SCH (08:13)
--- NOTE | 2024-10-03 09:02 | Electroencephalogram ---
EEG Procedure Note Date of Service October 03, 2024 Start / End Times Start Time: 658 End Time: 718 Referring Physician alex bryan History LOC Home Medication List Medication Instructions Recorded Confirmed Type flash glucose sensor (FreeStyle #1 ea 09/02/20 10/02/24 History Ruben 2 Sensor kit) blood sugar diagnostic (OneTouch #10 ea 01/13/22 10/02/24 History Verio test strips) clopidogrel 75 mg tablet (Plavix) 75 mg PO DAILY 08/24/22 10/02/24 History lbfmqrg-hxxcndwtfmzqa-ztebymoz 250 2 tab PO DAILY PRN Migraine 04/25/23 10/02/24 History mg-250 mg-65 mg tablet (Excedrin Headache Migraine) atorvastatin 20 mg tablet 20 mg PO HS 07/27/23 10/02/24 History acetaminophen 325 mg tablet 650 mg PO AMHS 11/02/23 10/02/24 History (Tylenol) acetaminophen 325 mg tablet 650 mg PO BID PRN PAIN/FEVER 11/02/23 10/02/24 History (Tylenol) fluticasone furoate 27.5 1 spray intranasal DAILY 11/02/23 10/02/24 History mcg/actuation nasal spray,suspension (Flonase Sensimist) menthol 0.44 %-zinc oxide 20.6 % 1 applic topical TID PRN 11/02/23 10/02/24 History topical ointment (Calmoseptine) PROTECTANT ON BUTTOCKS nystatin 100,000 unit/gram topical 1 applic topical BID PRN 11/02/23 10/02/24 History powder RASH/IRRITATION IN ABD FOLDS sennosides 8.6 mg-docusate sodium 1 tab-cap PO BID 11/02/23 10/02/24 History 50 mg tablet (Senna Plus) bumetanide 0.5 mg tablet 0.5 mg PO 4XWK 06/29/24 10/02/24 History insulin glargine 100 unit/mL 15 unit (0.15 mL) subcut QAM #10 mL 07/03/24 10/02/24 Rx subcutaneous solution (Lantus U-100 Insulin) insulin syringe,safety needle 0.5 #100 ea 07/03/24 10/02/24 Rx mL 29 gauge x 1/2" (BD SafetyGlide Insulin Syringe) cholecalciferol (vitamin D3) 125 125 mcg PO DAILY #90 caps 08/22/24 10/02/24 Rx mcg (5,000 unit) capsule baclofen 10 mg tablet 10 mg PO BID PRN BACK SPASMS 10/02/24 10/02/24 History bumetanide 0.5 mg tablet 0.5 mg PO DAILY PRN WT GAIN 3LBS 10/02/24 10/02/24 History OR GREATER bumetanide 0.5 mg tablet 0.75 mg PO 3XWK 10/02/24 10/02/24 History carbidopa 25 mg-levodopa 100 mg 2 tab PO TID 10/02/24 10/02/24 History tablet carbidopa ER 25 mg-levodopa 100 mg 2 tab PO HS 10/02/24 10/02/24 History tablet,extended release esomeprazole magnesium 40 mg 40 mg PO DAILY 10/02/24 10/02/24 History capsule,delayed release insulin lispro 100 unit/mL 4 unit subcut QDL 10/02/24 10/02/24 History subcutaneous solution (Humalog U-100 Insulin) insulin lispro 100 unit/mL 6 unit subcut QDD 10/02/24 10/02/24 History subcutaneous solution (Humalog U-100 Insulin) insulin lispro 100 unit/mL 8 unit subcut QDB 10/02/24 10/02/24 History subcutaneous solution (Humalog U-100 Insulin) melatonin 10 mg tablet 10 mg PO HS 10/02/24 10/02/24 History mirtazapine 7.5 mg tablet 7.5 mg PO HS 10/02/24 10/02/24 History spironolactone 25 mg tablet 25 mg PO DAILY 10/02/24 10/02/24 History Inpatient Medication List Acetaminophen (Acetaminophen 325 Mg Tab) 650 mg PO AMHS [facility] Stop: 11/02/24 08:59 Last Admin: 10/03/24 08:04 Dose: 650 mg Documented By: YAMINI Bumetanide (Bumetanide 1 Mg Tab) 0.5 mg PO SuTuThSa@0900 [facility] Stop: 11/02/24 08:59 Last Admin: 10/03/24 08:04 Dose: 0.5 mg Documented By: YAMINI Carbidopa/Levodopa (Carbidopa/Levodopa 25/100mg Tab) 2 tab PO TIDM [facility] Stop: 11/02/24 07:59 Last Admin: 10/03/24 08:04 Dose: 2 tab Documented By: YAMINI Clopidogrel Bisulfate (Clopidogrel Bisulfate 75 Mg Tab) 75 mg PO DAILY [facility] Stop: 11/02/24 08:59 Last Admin: 10/03/24 08:03 Dose: 75 mg Documented By: YAMINI Insulin Aspart (Insulin Aspart Per Unit Charge) 0 units SC ACHS [facility] Stop: 11/02/24 07:29 Last Admin: 10/03/24 08:13 Dose: 3 units Documented By: YAMINI Co-signed By: PAYTON Insulin Glargine (Lantus Per Unit Charge) 15 units SQ QAM [facility] Stop: 11/02/24 05:14 Last Admin: 10/03/24 05:49 Dose: 15 units Documented By: MOMO Co-signed By: ALEXANDRA Senna/Docusate Sodium (Docusate Sodium/Senna 50/8.6mg Tab) 1 tab PO BID [facility] Stop: 11/02/24 08:59 Last Admin: 10/03/24 08:04 Dose: 1 tab Documented By: YAMINI Spironolactone (Spironolactone 25 Mg Tab) 25 mg PO DAILY [facility] Stop: 11/02/24 08:59 Last Admin: 10/03/24 08:03 Dose: 25 mg Documented By: YAMINI Description This is a 21 electrode EEG with a single channel dedicated to limited EKG. The electrodes were placed in accordance with the International 10-20 system. Interpretation This is a 21 electrode EEG with a single channel dedicated to limited EKG. The electrodes were placed in accordance with the International 10-20 system. There is a posterior dominant rhythm of 6-7 Hz which is symmetrically distributed and attenuates with eye opening. There is a normal anterior to posterior organization. Photic stimulation: unremarkable Hyperventilation performed: ___ unremarkable; _x_ not performed. There is no focal slowing. No epileptiform abnormalities. Sleep stage: __ not achieved, ___drowsy state, ___ Stage II, ___ REM stage achieved. Interpretation Normal-appearing awake/sleep EEG except for mild diffuse slowing. no epileptic discharge noted. [facility] EEG Procedure Codes Indication for Procedure (1) Transient alteration of awareness: Neurology Neurology: 66206 EEG include record awake & drowsy
[2024-10-03 09:52] LABS: Appearance Urine Slightly Cloudy (Clear); Bilirubin Urine Negative (Negative); Blood Urine Trace-intact (Negative); Color Urine Yellow; Glucose Urine UA 2+ (Negative); Ketones Urine Negative (Negative); Leukocyte Esterase Urine 1+ (Negative); Nitrite Urine Positive (Negative); Protein Urine Trace (Negative); Urobilinogen Urine Negative (Negative)
[2024-10-03 10:14] LABS: Bacteria Urine 4+ (None Seen)
[2024-10-03 10:15] LABS: RBC Urine 0-2 /hpf (0-2)
--- NOTE | 2024-10-03 10:26 | XRay Report ---
KUB HISTORY: pre-xrays for MRI clearance COMPARISON STUDY: Chest x-ray and head CT of 10/02/2024 were also reviewed. FINDINGS: KUB: There are right upper quadrant surgical clips. There is no metallic medical technical writer or metallic f oreign body otherwise. There is a large amount of retained stool. No bowel obstruction seen. CHEST: Cardiac loop recorder overlies the low central chest. No other metallic foreign body seen. Orbits: No metallic foreign body seen at the orbits on the head CT of 10/02/2024. IMPRESSION: 1. Cardiac loop recorder is present at the chest. 2. Otherwise no other significant metallic foreign body or metallic medical technical writer seen. ACT 112: Negative or not required by law. The above report was generated using voice recognition software. It may contain grammatical, syntax o r spelling errors. Electronically signed by: Mtaheus Mir M.D. 10/03/2024 10:24 AM
--- NOTE | 2024-10-03 11:40 | Electrocardiogram Report ---
Test Reason : Blood Pressure : */* mmHG Vent. Rate : 65 BPM Atrial Rate : * BPM P-R Int : * ms QRS Dur : 90 ms QT Int : 402 ms P-R-T Axes : * -37 51 degrees QTcB Int : 418 ms Atrial fibrillation Left axis deviation Abnormal ECG Confirmed by Tarun Briones ([id number]) on 10/03/2024 11:39:56 AM Referred By: REFERRED SELF Confirmed By: Tarun Briones
[2024-10-03] MEDS: cefTRIAXone SODIUM 2,000 MG/50 ML BAG IV SCH (16:41)
--- NOTE | 2024-10-03 19:31 | Magnetic Resonance Report ---
EXAM: MR brain seizure wo con CLINICAL HISTORY: seizure TECHNIQUE: MRI of the brain was performed without contrast with multiplanar sequences obtained. COMPARISON: No previous studies are available for comparison. FINDINGS: Brain Parenchyma: A well-defined T1 iso-to hypointense and T2/FLAIR hyperintense mass in the right cerebellopontine angle measuring about 2.1 x 2.3 cm, with extension into a mild relative widening of the right auditory meatus. There is associated compression of the Adrian and the right cerebellum. Internal blooming artifacts are seen, could be calcifications or blood by-products. No restricted diffusion. Multiple foci of high T2 and FLAIR signal seen in periventricular white matter suggesting a mild chronic ischemic changes No evidence of acute infarction or hemorrhage. Normal meyers-white matter differentiation. Ventricles and Sulci: Prominent ventricular system and extra-axial CSF spaces suggesting senile changes Normal size and configuration of the lateral ventricles, third ventricle, and fourth ventricle. No evidence of hydrocephalus or ventriculomegaly. Sylvian fissures, sulci, and cisterns are mildly widened. Posterior Fossa: Cerebellum and brainstem appear normal without evidence of mass lesions or signal abnormalities. Cranial Nerves: Normal course and appearance of cranial nerves identified. Vessels: No evidence of vascular malformations or aneurysms. Intracranial arteries and veins appear normal without evidence of stenosis or occlusion. Orbits and Skull Base: Orbits and skull base structures are normal without evidence of abnormalities. IMPRESSION: 1. 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 Post contrast MRI is advised 2. Age-appropriate senile changes with mild chronic ischemic changes Electronically signed by Cyrus Page 10-03-2024 7:31 PM
--- NOTE | 2024-10-03 19:36 | Magnetic Resonance Report ---
EXAM: MR cervical spine wo con CLINICAL HISTORY: abnormal CT c-spine, severe stenosis?? TECHNIQUE: MRI of the cervical spine was performed. Sequences obtained include sagittal T1-weighted, T2-weighted, STIR (Short Tau Inversion Recovery), and axial T2-weighted sequences. COMPARISON: No previous studies are available for comparison. FINDINGS: Vertebral Alignment: Straightening of cervical spine and mild reversal of C4-C6. No evidence of fracture or subluxation. Vertebral Bodies and Intervertebral Discs: Normal vertebral body height and alignment. Moderate to marked degenerative changes in the visualized spine, with marginal osteophytes. Uncovertebral and facet joint arthropathies. A focal hypointense area in all sequences behind the odontoid, probable crystal deposits. The scanned intervertebral discs show variable degrees of degeneration denoted by low signal intensity on T2 WI with a relative reduction of their heights. Vgyrq-[id number]-[id number] analysis: C2-C3: There is a 4.1 mm diffuse disc bulge, abutting the anterior thecal sac, causing mild bilateral neural foraminal stenosis. Bilateral facet joint arthropathies. Moderate spinal stenosis (5.0 mm). C3-C4: There is a 2.5 mm diffuse disc bulge and a right subarticular 8.5 x 4 mm (CCxAP) disc extrusion, narrowing the right lateral recess and neuroforamen, compressing the exiting nerve root. Bilateral facet joint arthropathies. Marked spinal stenosis (3.3 mm). C4-C5: There is a 2.2 mm diffuse disc bulge, and bilateral ostophytic complexes measuring 3.8 mm on the left side and 3.4 mm on the right side, causing mild narrowing of bilateral lateral recesses and neural foramina and indenting on the exiting nerve roots. Bilateral facet joint arthropathies. Mild spinal stenosis. C5-C6: There is a 3.5 mm diffuse disc bulge and bilateral ostophytic complexes, abutting the anterior thecal sac, causing moderate bilateral neural foraminal stenosis and indenting on the exiting nerve roots. Bilateral facet joint arthropathies. Mild spinal stenosis. C6-C7: There is a 2.5 mm diffuse posterior disc bulge with peridiscal posterior osteophytes abutting the anterior thecal sac, causing mild bilateral neural foraminal stenosis. Bilateral facet joint arthropathies. Mild spinal stenosis. C7-T1: There is a 1.8 mm posterior annular bulge, abutting the anterior thecal sac, without causing neural foraminal stenosis. Bilateral facet joint arthropathies. No significant spinal canal stenosis Spinal Cord and Nerve Roots: Marked spinal canal compression with subtle T2 and STIR hyperintense 5 x 2 mm focal area in the cord (Series 3 Image /, Series 7 Image ), probable mild compressive myelopathy Spinal stenosis, moderate at C2-C3 and marked C3-C4. Soft Tissues: Paraspinal soft tissues appear normal without evidence of abnormal signal intensity or mass lesions. Diffusely heterogeneous thyroid with enlarged right lobe. IMPRESSION: 1. Straightening of cervical spine and mild reversal C4-C6. 2. Moderate to marked cervical spondylotic changes with osteophytes. 3. Multilevel disc space narrowing with facet hypertrophy. 4. Spinal stenosis, moderate at C2-C3 and marked C3-C4. 5. Subtle focal T2 and STIR hyperintense 5 x 2 mm area in the cord (Series 3 Image /, Series 7 Image ), probable mild compressive myelopathy. 6. Disc herniation of moderate to marked degree noted at multiple levels as described, with disc extrusion on the right side at C3-C4. 7. Diffusely heterogeneous thyroid with enlarged right lobe. Further evaluation with ultrasound is recommended if clinically warranted. Electronically signed by Cyrus Page 10-03-2024 7:35 PM
[2024-10-03] MEDS: MIRTAZAPINE TAB 15 MG TAB PO SCH (20:12)
[2024-10-03] MEDS: ATORVASTATIN 20 MG TAB PO SCH (20:13)
[2024-10-03] MEDS: CARBIDOPA/LEVODOPA 25/100MG EXT REL TAB PO SCH (21:25)
[2024-10-03] MEDS: ACETAMINOPHEN 325 MG TAB PO PRN (21:25)
[2024-10-04 08:16] LABS: Calcium 9.2 mg/dl (8.6-10.3); Potassium 4.5 mmol/L (3.5-5.1)
[2024-10-04 08:22] LABS: BUN Creatinine Ratio 30.6 (10-20); Creatinine Clr Calc Pharmacy 72.4 ml/min
--- NOTE | 2024-10-04 09:08 | Neurology Consultation ---
Date of Consultation October 04, 2024 Assessment & Plan (1) Cervical spinal stenosis: History of Present Illness Attending Physician: Cata Hernandez MD History of Present Illness S: asked to see pt for mri brain findings. noted for rt vestibular schwannoma (which has been known and old finding) and cervical changes (chronic). pt this morning back to baseline and feeling well. EEg negative. pt states she actually never passed out and she was awake entire time and she just felt tire and hard to get out from her chair and the staffs put her on the floor and her parkinson tremor caused her arms to shake. admission HPi: Sabine Lainez is an 79-year-old female with history of prior stroke, hypertension, diabetes, hyperlipidemia, GERD, paroxysmal atrial fibrillation and Parkinson's disease presenting from her longterm after being found down. Patient is unable to provide history. No family or staff at bedside. Patient reportedly found down on the ground with some left-sided muscular twitching, concern for focal seizure. She was given Ativan 2 mg IV prior to arrival. On exam she reports "my arm hurts" otherwise she reports feeling okay. Denies chest pain, palpitations, cough, shortness of breath, abdominal pain, nausea, vomiting, diarrhea In the ER she is afebrile, hemodynamically stable. Still somnolent although waking up and more responsive Allergies Allergy/AdvReac Type Severity Reaction Status Date / Time benztropine Allergy Unknown ON [facility] Verified 09/28/24 12:53 [place] [facility] L[facility] citalopram Allergy Unknown ON [facility] Verified 09/28/24 12:53 [place] [facility] doxycycline Allergy Unknown REMOTE HX, Verified 09/28/24 12:53 ON [facility] minocycline Allergy Unknown REMOTE HX, Verified 09/28/24 12:53 PT NOT SURE REACTION simvastatin Allergy Unknown ON [facility] Verified 09/28/24 12:53 [place] L[facility] sulindac Allergy Unknown ON [facility] Verified 09/28/24 12:53 [place] [facility] empagliflozin AdvReac Intermediate Recurrent Verified 09/28/24 12:53 [From [facility]ard[facility]] Urinary Tract Infection Home Medications Medication Instructions Recorded Confirmed Type flash glucose sensor (FreeStyle #1 ea 09/02/20 10/02/24 History Ruben 2 Sensor kit) blood sugar diagnostic (OneTouch #10 ea 01/13/22 10/02/24 History Verio test strips) clopidogrel 75 mg tablet (Plavix) 75 mg PO DAILY 08/24/22 10/02/24 History cilupuw-kxhgewkndywiw-pesdkiee 250 2 tab PO DAILY PRN Migraine 04/25/23 10/02/24 History mg-250 mg-65 mg tablet (Excedrin Headache Migraine) atorvastatin 20 mg tablet 20 mg PO HS 07/27/23 10/02/24 History acetaminophen 325 mg tablet 650 mg PO AMHS 11/02/23 10/02/24 History (Tylenol) acetaminophen 325 mg tablet 650 mg PO BID PRN PAIN/FEVER 11/02/23 10/02/24 History (Tylenol) fluticasone furoate 27.5 1 spray intranasal DAILY 11/02/23 10/02/24 History mcg/actuation nasal spray,suspension (Flonase Sensimist) menthol 0.44 %-zinc oxide 20.6 % 1 applic topical TID PRN 11/02/23 10/02/24 History topical ointment (Calmoseptine) PROTECTANT ON BUTTOCKS nystatin 100,000 unit/gram topical 1 applic topical BID PRN 11/02/23 10/02/24 History powder RASH/IRRITATION IN ABD FOLDS sennosides 8.6 mg-docusate sodium 1 tab-cap PO BID 11/02/23 10/02/24 History 50 mg tablet (Senna Plus) bumetanide 0.5 mg tablet 0.5 mg PO 4XWK 06/29/24 10/02/24 History insulin glargine 100 unit/mL 15 unit (0.15 mL) subcut QAM #10 mL 07/03/24 10/02/24 Rx subcutaneous solution (Lantus U-100 Insulin) insulin syringe,safety needle 0.5 #100 ea 07/03/24 10/02/24 Rx mL 29 gauge x 1/2" (BD SafetyGlide Insulin Syringe) cholecalciferol (vitamin D3) 125 125 mcg PO DAILY #90 caps 08/22/24 10/02/24 Rx mcg (5,000 unit) capsule baclofen 10 mg tablet 10 mg PO BID PRN BACK SPASMS 10/02/24 10/02/24 History bumetanide 0.5 mg tablet 0.5 mg PO DAILY PRN WT GAIN 3LBS 10/02/24 10/02/24 History OR GREATER bumetanide 0.5 mg tablet 0.75 mg PO 3XWK 10/02/24 10/02/24 History carbidopa 25 mg-levodopa 100 mg 2 tab PO TID 10/02/24 10/02/24 History tablet carbidopa ER 25 mg-levodopa 100 mg 2 tab PO HS 10/02/24 10/02/24 History tablet,extended release esomeprazole magnesium 40 mg 40 mg PO DAILY 10/02/24 10/02/24 History capsule,delayed release insulin lispro 100 unit/mL 4 unit subcut QDL 10/02/24 10/02/24 History subcutaneous solution (Humalog U-100 Insulin) insulin lispro 100 unit/mL 6 unit subcut QDD 10/02/24 10/02/24 History subcutaneous solution (Humalog U-100 Insulin) insulin lispro 100 unit/mL 8 unit subcut QDB 10/02/24 10/02/24 History subcutaneous solution (Humalog U-100 Insulin) melatonin 10 mg tablet 10 mg PO HS 10/02/24 10/02/24 History mirtazapine 7.5 mg tablet 7.5 mg PO HS 10/02/24 10/02/24 History spironolactone 25 mg tablet 25 mg PO DAILY 10/02/24 10/02/24 History Patient History Medical History H/O head and neck radiation Stroke 08/16/22 treated at [facility]. still experiencing mild slurred speech at times, using a wheelchair, unable to ambulate at this time since her stroke. able to stand and pivot with assistance. History of colon polyps Complicated migraine "COMPLICATED MIGRAINES" - OCCUR OFTEN AND RESEMBLE SYMPTOMS OF A STROKE PER PT History of high cholesterol Acoustic neuroma FOLLOWS DR MITCHELL - UPCOMING RADIATION TREATMENT AFTER CATARACT SURGERY Chronic heart failure DVT prophylaxis Mitral valve disorder DENIES Permanent atrial fibrillation DX 2 YR AGO, NO HX CARDIOVERSION Obesity Anxiety History of TIA (transient ischemic attack) 2004 ,HX PT FOR, NO REMAINING RESIDUAL EFFECTS Hypertension HX BLOOD PRESSURE MEDICINE, ONCE A FIB DX - MED WAS D/C'D - PT REPORTS BLOOD PRESSURE USUALLY RUNS LOW AROUND 106/58 Diabetes INSULIN PUMP Parkinson disease Surgical History History of loop recorder per medical history/record. History of bunionectomy History of bilateral tubal ligation History of esophagogastroduodenoscopy (EGD) History of colonoscopy History of left knee replacement H/O breast biopsy 10/26/17 LMA#4. 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 S/P cholecystectomy HX S/P appendectomy HX Family History Mother Diabetes Congestive heart failure Colorectal cancer Hypertension Brother Congestive heart failure Colorectal cancer Sister Cancer Unknown Pancreatic cancer Son Family history of colonic polyps Social History Smoking Status: Never smoker Second Hand Exposure: No; Do You Dip or Chew Tobacco: No; Hx Alcohol Use: No Hx Substance Use: No Preferred Language: Haitian Communication Ability: Effective Visual Impairment: No Limitations Song And Dance Performer Required: No Beliefs That Will Affect Care: None marital status: Unknown Current Living Situation: Personal Care Facility Current Living Situation Comment: with help for 4 hours a day How many Children do You have: 2 Feels Safe at Home: Yes Assistive Devices: Walker Exam (Neuro) Physical Exam: HEENT: normocephalic grossly Neuro: Mental: AOx4, fluent speech, normal comprehension, no apraxia, no L/R confusion, no neglect CN: PERRL, Full EOM, symmetric face, midline T/U/P, Motor: No abnormal movements, no resting tremors noted. , normal tone. 5/5 t/o upper limbs. Coord: intact DTR: 1+ sym b/l upper limbs. Impression: 79 yo female with known rt vestibular schwannoma, it has not changed and it is benign tumor. Her c spine finding again if chronic in nature and clinically she does not have cervical myelopathy. pt didn't have seizure either. Her tremors are from her known parkinson. Recommendations: no further work up needed from neurology routine f/u mri brain in a year, then can f/u with neurosurgery as needed. conservative management for cervical DDD/DJD will sign off. Chart reviewed I have spent more than 50% educating patient about potential diagnosis and neurological evaluation and coordinating care with patient's treatment team. Total time spent (including chart review and coordination of care): 45 min (this includes chart review). Results & Data Vital Signs (Past 12 Hours) Vital Signs Temp Pulse Pulse Pulse Resp BP BP 10/04/24 08:03 36.5 C 70 20 119/55 L 10/04/24 08:00 64 10/04/24 02:57 36.6 C 62 18 111/54 L 10/03/24 22:30 36.7 C 61 18 116/66 10/03/24 21:50 64 Pulse Ox O2 Del Method 10/04/24 08:03 96 Room Air 10/04/24 08:00 10/04/24 02:57 96 Room Air 10/03/24 22:30 97 Room Air 10/03/24 21:50 PG Care Time/CCT Total # of Minutes Spent Total Time Spent with Patient: Total time spent is greater than 50% in coordination of care (as documented) at patient's floor/unit and/or counseling patient: Coding Level of Care Code 92854 IN/OBS CONSULT LVL 3,45M Diagnoses Cervical spinal stenosis M48.02
[2024-10-04] MEDS: MICONAZOLE NITRATE POWDER 85 GM EXT PRN (09:09)
[2024-10-04] MEDS: BUMETANIDE 1 MG TAB PO SCH (09:59)
[2024-10-04 11:32] LABS: Hematocrit (blood only) 38.7 % (37.0-47.0); Hemoglobin 12.9 g/dl (12.0-16.0); Mean Corpuscular Hgb Conc 33.3 g/dL (32.0-36.0); Mean Corpuscular Volume 83.9 fL (80.0-100.0); Mean Platelet Volume 10.4 fL (9.4-12.4); Platelet Count 166 K/uL (130-400); RDW Coefficient of Variation 14.9 % (11.5-14.5); RDW Standard Deviation 45.2 fL (36.4-46.3); Red Blood Count 4.61 M/uL (4.20-5.40); White Blood Count 6.42 K/ul (4.8-10.8)
[2024-10-04] MEDS: OPTIRAY 320 100ml IV ONE (12:25)
--- NOTE | 2024-10-04 12:50 | CT Scan Report ---
ABDOMEN AND PELVIS CT WITH IV CONTRAST CT DOSE: 1484.25 mGy.cm HISTORY: cirrhosis, abd distension, pain TECHNIQUE: Multiaxial CT images of the abdomen and pelvis were performed following the IV administrat ion of 90 cc of Optiray, A dose lowering technique was utilized adhering to the principles of ALARA. COMPARISON STUDY: 05/12/2024 FINDINGS: ABDOMEN: Stable cholecystectomy. Stable mild nodular contour of the liver. Stable mild splenomegaly. Pancreas and adrenal glands are unremarkable. There are a few tiny cysts at the kidneys. No hydroneph rosis or renal calculi. No ascites. There are scattered atherosclerotic calcifications. No abdominal aortic aneurysm. Pelvis: Uterus and adnexa are grossly unremarkable. Urinary bladder is nondistended. There is mild re tained stool. Stable anterior central positioning of the cecum. No bowel inflammation or obstruction seen. No free fluid, free air, or abscess. No enlarged adenopathy. Osseous structures: There is diffuse lumbar degenerative disc disease. IMPRESSION: 1. Stable mild cirrhotic morphology of the liver and mild splenomegaly with no ascites. 2. No acute findings seen. Otherwise as described. ACT 112: Negative or not required by law. The above report was generated using voice recognition software. It may contain grammatical, syntax o r spelling errors. Electronically signed by: Matheus Mir M.D. 10/04/2024 12:48 PM
--- NOTE | 2024-10-04 18:02 | Hospitalist Progress Note ---
<Statement entered by Cata Hernandez MD - 10/04/24 20:09> I have reviewed vital signs, chart notes, labs and imaging. I have personally seen, evaluated and examined the patient. I have also discussed the management of the patient with the YOLY and I agree with the exam findings documented in the history and physical examination and the documented assessment and plan unless otherwise stated below. On my exam she is awake alert oriented x 4 with bradykinesia and some left- sided rest tremor. abdomen is nontender and nondistended we discussed new diagnosis of cirrhosis, it is probably metabolic in origin, she is well compensated and is likely to remain asymptomatic for quite some time. Her Parkinson's disease and other medical conditions are more pressing c oncerns. There was no ascites on CT. - follow-up as outpatient I agree with Dr. Best That it seems unlikely she actually had seizure, no acute findings on brain MRI and EEG was normal except for generalized slowing. she will not discharge on an AED continue treatment for UTI await urine culture check orthostatic vital signs back to [facility] tomorrow Date of Service October 04, 2024 Assessment & Plan (1) Seizure: (2) UTI (urinary tract infection): (3) Abdominal pain: (4) Parkinsons disease: (5) Diabetes type 2, uncontrolled: Plan 71-year-old female with multiple medical comorbidities, prior CVA with right- sided deficit at baseline, Parkinson's disease [facility] being [facility]. Questionable seizure activity involving left side. Patient is now awake, continues to be more alert and responsive. She is unable to provide history of events prior to arrival. Denies having prior seizure. 2mg IV Ativan given prior to arrival. Electrolytes and glucose WNL on admission. EEG and MRI brain ordered. Neurology consulted for review of brain MRI. Patient reported abdominal bloating/pain 10/03/24, history of cirrhosis. CT abdomen/pelvis ordered to r/o ascites. #Seizure/Vestibular Schwannoma/Cervical spinal stenosis No clear etiology on admission. Neurology consult completed today with following recommendations: - notes that patient did not have seizure. EEG normal - right vestibular schwannoma unchanged and benign. f/u MRI brain in 1 year and neurosurgery prn. - conservative management recommended for cervical spinal stenosis/DDD/DJD #UTI - no urinary sx - urine culture positive for klebsiella - continue ceftriaxone 2g daily #Abdominal pain/History of cirrhosis - CT abdomen/pelvis showing mild cirrhotic appearance of liver and mild s plenomegaly without ascites. Mild retention of stool noted. - Miralax 17g PO daily added. Continue senna PO BID. #Uncontrolled Type 2 Diabetes, insulin dependent - blood glucose levels have remained 200 and above since admission - increase lantus to 18 units QAM - continue SSI coverage - BSGs ACHS #Parkinson disease Continue carbidopa/levodopa at home dose #Paroxysmal atrial fibrillation Rate controlled Patient is not on any rate controlling agents or blood thinners at present, history of recurrent falls Anticipate discharge back to [facility] tomorrow. Admission and Anticipated Discharge Date Admission Date: October 03, 2024 Subjective Patient is a 79 year old female who presented to ED 10/03 with questionable focal seizure. She was given 2mg IV Ativan prior to arrival. Patient reports that she never had a seizure and that she was having tremors from Parkinsons. She was admitted for observation and additional work up ordered. Currently, she reports she is feeling well. She is eating and drinking well. She reports lower abdominal discomfort and bloating. Last BM 2 days ago. She denies dysuria, polyuria, back/flank pain, blood in stool/urine, fevers/chills, headache, dizziness, chest pain, sob, cough, n/v/d/c, heartburn. She has chronic tremor with Parkinson's disease, reports having good and bad days with her symptoms. Review of Systems Review of Systems: see HPI Physical Exam Physical Exam: General: no acute distress; non-toxic appearing; well-nourished; cooperative HEENT: normocephalic, atraumatic; no scleral icterus; PERRLA w/ EOMs intact; vision and hearing grossly intact Neck: supple; no lymphadenopathy; trachea midline Skin: warm, dry without signs of tenting; no cyanosis; no rashes, bruising, lesions, or erythema noted CV: chest wall NTP; RRR; S1/S2 normal; no murmurs/rubs/gallops; pulses intact and symmetric at radial, DP, and PT Lungs: no acute respiratory distress; symmetrical chest wall expansion; clear breath sounds across all lung godoy w/o adventitious sounds; no wheezing ABD: Soft, mild tenderness to palplation lower abdomen; BS present; no rebound/guarding; no distention. no suprapubic or CVA tenderness. MSK: no tics or fasciculations; no edema noted in the LEs b/l, nonerythematous Neuro: A&Ox3; normal mood and affect; fluent speech; no focal deficits; sensation grossly intact in the LEs b/l Results & Data Results & Data Vital Signs (Past 12 Hours) Vital Signs Temperature, HR, RR, BP, O2 saturations reviewed. Temp Pulse Pulse Pulse Resp BP BP 10/04/24 14:59 73 10/04/24 14:51 97.7 F 69 18 128/72 10/04/24 13:18 98.2 F 71 18 122/61 10/04/24 08:03 97.7 F 63 20 119/55 L 10/04/24 08:00 64 Pulse Ox O2 Del Method 10/04/24 14:59 10/04/24 14:51 96 Room Air 10/04/24 13:18 98 Room Air 10/04/24 08:03 96 Room Air 10/04/24 08:00 Laboratory Results cbc, bmp, blood glucose levels reviewed. Diagnostic Findings CT abdomen/pelvis reviewed neurology consult note reviewed PG Care Time/CCT Total # of Minutes Spent Total Time Spent with Patient: Total time spent is greater than 50% in coordination of care (as documented) at patient's floor/unit and/or counseling patient: Coding Level of Care Code 55326 SUB INP/OBS CARE 3/50MIN Diagnoses Seizure R56.9 UTI (urinary tract infection) N39.0 Abdominal pain R10.9 Parkinsons disease G20 Diabetes type 2, uncontrolled E11.65
[2024-10-04] MEDS: POLYETHYLENE (MIRALAX) 17 GM PACK PO SCH (18:45)
[2024-10-05] MEDS: LANTUS PER UNIT CHARGE SQ SCH (09:36)
--- NOTE | 2024-10-05 10:08 | Hospitalist Progress Note ---
<Statement entered by Cata Hernandez MD - 10/05/24 18:17> I have reviewed vital signs, chart notes, labs and imaging. I have personally seen, evaluated and examined the patient. I have also discussed the management of the patient with the [facility] and I agree with the exam findings documented in the history and physical examination and the documented assessment and plan unless otherwise stated below. Lainey Fernandes is having a little bit more parkinsonian symptoms than usual today, she says she did well with physical therapy and is functioning at her baseline with respect to transfers in and out of the wheelchair and on and off the commode [facility] was unable to accommodate discharge today because they are having a routine inspection my exam she is awake alert oriented x 4 she has a baseline left greater than right upper extremity rest tremor, some bradykinesia rigidity planning for discharge tomorrow on oral antibiotics to complete UTI treatment Date of Service October 05, 2024 Assessment & Plan (1) Parkinsons disease: (2) GERD (gastroesophageal reflux disease): (3) UTI (urinary tract infection): (4) Diabetes type 2, uncontrolled: Plan 71-year-old female with multiple medical comorbidities, 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 Questionable seizure activity involving left side. Patient is now awake, continues to be more alert and responsive. She is unable to provide history of events prior to arrival. Denies having prior seizure. 2mg IV Ativan given prior to arrival. Electrolytes and glucose WNL on admission. EEG and MRI brain ordered. Neurology consulted for review of brain MRI. Patient reported abdominal bloating/pain 10/03/24, history of cirrhosis. CT abdomen/pelvis ordered to r/o ascites. #Parkinson's disease/Vestibular Schwannoma/Cervical spinal stenosis -presented to ED with questionable focal seizure of the left side 10/02/24. 2mg IV Ativan given prior to arrival to ED. -no clear seizure etiology noted on admission. Neurology consult completed 10/03/24 with following recommendations: - EEG was normal. impression notes that patient did not have seizure. - Right vestibular schwannoma noted on brain MRI unchanged and benign. f/u MRI brain in 1 year and neurosurgery prn. - Conservative management recommended for cervical spinal stenosis/DDD/DJD - symptom etiology likely an exacerbation of Parkinson's disease motor symptoms (increased tremors and freezing) in setting of acute UTI - continue carbidopa/levodopa at home dose - PT/OT evaluation today #UTI - no urinary sx - urine culture positive for klebsiella, sensitivities resulted - continue IV Ceftriaxone while inpatient, transition to PO Macrobid for 5-7 days on discharge #GERD/Abdominal pain/History of cirrhosis - CT abdomen/pelvis showing mild cirrhotic appearance of liver and mild splenomegaly without ascites. Mild retention of stool noted. - Miralax 17g PO daily added with home med senna PO BID on 10/04, reported episode of loose BM, C dif testing negative. - on PPI therapy outpatient for GERD, protonix 20mg BID initiated - reassess for symptom improvement #Uncontrolled Type 2 Diabetes, insulin dependent - increase lantus to 18 units QAM 10/04 - blood glucose level 146 AM and 283 Afternoon 10/05 - increase lantus to 20 units QAM - continue SSI coverage - BSGs ACHS #Paroxysmal atrial fibrillation Rate controlled Patient is not on any rate controlling agents or blood thinners at present, history of recurrent falls Anticipate early discharge back to [facility] tomorrow Admission and Anticipated Discharge Date Admission Date: October 03, 2024 Subjective Patient is a 79 year old female with who is a resident at [facility]. She presented to ED 10/03 with questionable focal seizure after being found on the ground by nursing staff. It was noted by nursing staff that she had left arm tremor and she was given 2mg IV Ativan prior to arrival. Patient reports that she never had a seizure and that she was having tremors from known Parkinsons. She was admitted for observation and additional work up ordered. Neuro consulted and reported normal EEG (no seizure). Mri brain with unchanged r vestibular schwannoma, Cervical DDD/DJD noted and conservative treatment recommended. UTI present and being treated with IV Ceftriaxone, she has denied urinary sx. Reported lower abdominal pain/bloating. Last BM 2 days ago. Miralax ordered with home colace BID. Pt reported loose BM, c dif testing completed and negative. Miralax not given due to loose stools, last dose senna was yesterday PM (10/04). PT/OT has been ordered and asked for evaluation today if possible for discharge. Currently, she reports she is feeling pretty good. She was having some leg discomfort this morning, but this improved with PT and moving from bed to wheelchair. She reports she had one episode of loose BM last night, states that abdominal bloating and lower abdominal pain slightly improved. She reports pain in central upper abdomen, worse with eating. Pain sometimes will radiate to back. She has history of GERD, on nexium 40mg daily at home. She has not had PPI therapy during admission. She reports occasional nausea with this, no vomiting. No melena, hematochezia, hematuria, dysuria, flank/back pain, polyuria, difficulty urinating, fevers/chills, LOYA, dizziness, chest pain, cough, sob. She states prior to arrival to ED, she was more fatigued that day and rang for help from nurse to get out of chair. She reports her tremors had been acutely worsening on left side for about 2 weeks, but were more prominent that day. She states she also felt like she was frozen and could not respond to nurse when she was asking her questions, and that she was awake the entire time. She states her nurse placed helped her to the ground and waited with her until paramedics arrived. She denies any LOC, vision change, change in speech, numbness/tingling/weakness, dizziness, headache, pre-syncope/syncope, chest pain, sob, palpitations at that time. Review of Systems Review of Systems: see HPI Physical Exam Physical Exam: General: no acute distress; non-toxic appearing; well-nourished; cooperative HEENT: normocephalic, atraumatic; no scleral icterus; PERRLA w/ EOMs intact; vision and hearing grossly intact Neck: supple; no lymphadenopathy; trachea midline Skin: warm, dry without signs of tenting; no cyanosis; no rashes, bruising, lesions, or erythema noted CV: chest wall NTP; irregular rhythm with regular rate; S1/S2 normal; no murmurs/rubs/gallops; pulses intact and symmetric at radial, DP, and PT Lungs: no acute respiratory distress; symmetrical chest wall expansion; clear breath sounds across all lung [place] w/o adventitious sounds; no wheezing ABD: Soft, (+) tenderness to palpation of epigastric area; BS present; no rebound/guarding; no distention MSK: no tics or fasciculations; no edema noted in the LEs b/l, nonerythematous Neuro: A&Ox3; normal mood and affect; fluent speech; no focal deficits; sensation grossly intact in the LEs b/l Results & Data Results & Data Vital Signs (Past 12 Hours) Vital Signs Temperature, heart rate, respiratory rate, bp, o2 saturations reviewed Temp Pulse Pulse Resp BP BP Pulse Ox 10/05/24 07:46 97.9 F 80 18 147/78 H 97 10/05/24 05:54 61 10/05/24 03:05 97.5 F L 71 10/05/24 03:00 50 L 17 101/67 93 10/04/24 23:41 97.3 F L 60 17 124/73 98 10/04/24 22:03 68 O2 Del Method 10/05/24 07:46 Room Air 10/05/24 05:54 10/05/24 03:05 10/05/24 03:00 Room Air 10/04/24 23:41 Room Air 10/04/24 22:03 Laboratory Results Blood glucose levels, urine culture sensitivities, cbc reviewed PG Care Time/CCT Total # of Minutes Spent Total Time Spent with Patient: Total time spent is greater than 50% in coordination of care (as documented) at patient's floor/unit and/or counseling patient: Coding Level of Care Code 99463 SUB INP/OBS CARE 2/35MIN Diagnoses Parkinsons disease G20 GERD (gastroesophageal reflux disease) K21.9 UTI (urinary tract infection) N39.0 Diabetes type 2, uncontrolled E11.65
[2024-10-05] MEDS: ALUMINUM/MAGNESIUM SUSP 30 ML UDC PO ONE (14:12)
[2024-10-05] MEDS: PANTOprazole 40 MG TAB PO SCH (21:06)
[2024-10-06] MEDS: BACLOFEN 10 MG TAB PO PRN (03:49)
[2024-10-06 08:02] LABS: Calcium 8.9 mg/dl (8.6-10.3); Creatinine Clr Calc Pharmacy 89.9 ml/min; Potassium 3.9 mmol/L (3.5-5.1)
[2024-10-06] MEDS: CARBIDOPA/LEVODOPA 25/100MG TAB PO SCH (08:21)
[2024-10-06] MEDS: LANTUS PER UNIT CHARGE SQ SCH (09:53)
[2024-10-06 12:00] VITALS: BP 133/80; PULSE 76; RESP 19; TEMP 97.5; O2SAT 97
[2024-10-06] MEDS: ALUMINUM/MAGNESIUM SUSP 30 ML UDC PO STA (12:43)
== END 2024-10-06 12:45 | disposition home or self-care (01) | DRG 101 ==
LOC: EDINP 21:04 → ED 21:04 → SUATTDRO 10-03 01:31 → 2N 10-03 03:34
DX: R25.1 Tremor, unspecified; R29.6 Repeated falls; F32.A Depression, unspecified; I50.32 Chronic diastolic (congestive) heart failure; B96.1 Klebsiella pneumoniae [K. pneumoniae] as the cause of diseases classified elsewhere; M48.02 Spinal stenosis, cervical region; Z79.4 Long term (current) use of insulin; N39.0 Urinary tract infection, site not specified; Z79.82 Long term (current) use of aspirin; E11.9 Type 2 diabetes mellitus without complications; Z79.02 Long term (current) use of antithrombotics/antiplatelets; Z79.899 Other long term (current) drug therapy; G20.A1 Parkinson's disease without dyskinesia, without mention of fluctuations; K21.9 Gastro-esophageal reflux disease without esophagitis; I48.0 Paroxysmal atrial fibrillation; Z88.8 Allergy status to other drugs, medicaments and biological substances; R56.9 Unspecified convulsions; I69.351 Hemiplegia and hemiparesis following cerebral infarction affecting right dominant side; D33.3 Benign neoplasm of cranial nerves; I11.0 Hypertensive heart disease with heart failure

== ENCOUNTER 2024-12-08 10:23 | Observation (INO) ==
--- NOTE | 2024-12-08 11:00 | Emergency Department Note ---
Impression & Plan Multiple fractures of ribs, right side, initial encounter for closed fracture, AMS (altered mental status) ED Provider Note HISTORY OF PRESENT ILLNESS: Patient is a 79-year-old female presenting with right lower chest wall pain. Patient reportedly was standing up by her commode a week ago when she lost her balance and fell, striking the right upper part of her abdomen and right lower chest wall on the commode. Patient denies striking her head or loss of consciousness. Patient reports that she did not want to come to the hospital after her fall. Patient reportedly was harder to arouse and more lethargic this morning for staff at [facility]. She was complaining of increasing pain in her left chest, prompting them to call 911. Patient is on Plavix. Patient reports that her right chest pain is worse when she takes a deep breath or tries to cough. Denies any fevers. Denies any nausea or vomiting. Denies any diarrhea. ROS: as above PHYSICAL EXAM: Constitutional: Patient appears in no acute distress. HENT: Head: Normocephalic and atraumatic. Eyes: EOMI, PERRL Mouth/Throat: Mucous membranes moist. Neck: Trachea midline. Neck supple. Cardiovascular: Irregular rhythm. No murmurs, rubs or gallops. Intact distal pulses. Pulmonary/Chest: No respiratory distress. Breath sounds clear and equal bilaterally. No wheezes or rales. Right lateral lower chest wall tenderness to palpation without any ecchymosis or evidence of flail chest. Abdominal: Abdomen soft, no rebound or guarding. RUQ TTP Musculoskeletal: No edema, tenderness or deformity noted. Skin: Warm and dry. No rash, erythema, pallor or cyanosis Psychiatric: Appropriate mood and affect for situation. Neurological: Alert and keenly responsive. CN II-XII grossly intact, moving all extremities equally and fully. MDM: - Vitals signs showed hypertension - History obtained via patient. History as above. - Chronic conditions affecting care: CHF; paroxysmal Afib; Parkinson's disease; DM-2; HTN - Differential diagnoses include, but are not limited to: Intracranial hemorrhage; rib fractures; pneumothorax; pneumonia; liver injury - Order placed for continuous cardiac monitoring. At this time, monitor showed rate of 60 bpm with irregular rhythm, per my interpretation. - External medical records reviewed. Discharge summary dated06/2024 was reviewed. Patient was admitted that time secondary [facility] - EKG image interpreted by myself showed atrial fibrillation. Rate 77 bpm. QT 540. No acute ischemic changes. - Laboratory workup interpreted by myself showed normal WBC; normal PT/INR; slight hypokalemia (K 3.4); normal lactate; normal troponin; elevated total bilirubin (1.5); normal lipase - CT head wo contrast negative for acute intracranial pathology. - CT cervical spine wo contrast negative for acute cervical fracture or subluxation. - CT chest with IV contrast showed acute nondisplaced right rib fractures of the 8th and 9th ribs. No pneumothorax. - CT abdomen/pelvis with IV contrast showed the right sided rib fractures with no acute intra-abdominal injury. - Patient is very lethargic in the emergency department and only arouses to painful stimuli. She is saturating 93% and above on room air. VBG was obtained and does not show any significant hypercarbia. - Discussion was had with piano case maker about patient's case and need for admission - Hospitalist consulted for admission - Patient admitted to [facility] service for further evaluation and management. ASSESSMENT AND PLAN: Diagnosis: Right sided rib fractures; altered mental status Plan: Admit Past Med/Surg History Problem List (Updated 12/08/24 @ 16:24 by Rosalia Segura MD) AMS (altered mental status) (Acute) Multiple fractures of ribs, right side, initial encounter for closed fracture (Acute) Abdominal pain (Acute) Transient alteration of awareness Cervical spinal stenosis (Acute) Vitamin D deficiency Contusion of arm, right (Acute) Multiple falls (Acute) Ambulatory dysfunction (Acute) Generalized weakness (Acute) CHI (closed head injury) (Acute) Traumatic hematoma of buttock (Acute) Ambulatory dysfunction (Acute) Traumatic hematoma of forehead (Acute) GERD (gastroesophageal reflux disease) HX History of stroke in prior 3 months Paroxysmal A-fib (Acute) Facial droop (Acute) Slurred speech (Acute) Stroke (cerebrum) Brain TIA (Acute) Facial droop (Acute) Acute right-sided muscle weakness (Acute) Stroke-like symptoms Status post carotid surgery Shortness of breath (Acute) Chest pain (Acute) Dizziness (Acute) Ataxia (Acute) Hypotension (Acute) Chronic pain (Chronic) CHF (congestive heart failure) (Chronic) Edema of right lower extremity (Acute) Parkinsons disease Syncope (Acute) Closed head injury (Acute) UTI (urinary tract infection) (Acute) Pneumonia (Acute) A-fib Non-healing wound Orthostatic dizziness Vulvovaginitis (Acute) Tremor (Acute) Simple goiter (Acute) Sensory problems with limbs (Acute) Sensorineural hearing loss (SNHL) of both ears (Acute) Right asymmetrical SNHL (Acute) REM sleep behavior disorder (Acute) Parkinson's disease dementia (Acute) Papilloma of breast (Acute) 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 (Acute) Nonproliferative diabetic retinopathy of both eyes (Acute) Nausea (Acute) Migraine headache (Acute) Menopause (Acute) Hypoglycemia (Acute) Goiter (Acute) Female genital symptoms (Acute) Dyslipidemia (Acute) Diabetic peripheral neuropathy (Acute) Diabetes with neurologic complications (Acute) Diabetes type 2, uncontrolled (Acute) Depression (Acute) DM (diabetes mellitus), type 2, uncontrolled w/neurologic complication (Acute) Concussion (Acute) Cervicalgia (Acute) Cerebrovascular disease (Acute) Breast pain (Acute) Bilateral impacted cerumen (Acute) Ataxic gait (Acute) Arthritis (Acute) Acoustic neuroma (Acute) Abnormal mammogram (Acute) Acute exacerbation of CHF (congestive heart failure) Anxiety Parkinson disease (Acute) Acute on chronic diastolic congestive heart failure H/O syncope Falls Hypertension Weakness (Acute) Weakness (Acute) Hematuria Hyperlipidemia Diastolic CHF Controlled type 2 diabetes mellitus with neurologic complication, with long-term current use of insulin Type 2 diabetes mellitus with retinopathy, with long-term current use of insulin Falls Dysesthesia Alteration in tactile sense Expressive aphasia (Acute) Chest pain (Acute) Hematoma of right lower extremity (Acute) Lower extremity pain, right (Acute) Hip pain Venous stasis DVT prophylaxis Rhabdomyolysis Fall (Acute) Generalized weakness (Acute) Depression Rhabdomyolysis (Acute) Acute dehydration (Acute) Acute hyperglycemia (Acute) Metabolic acidosis (Acute) Leukocytosis Elevated troponin Peripheral neuropathy Constipation Expressive aphasia Speech abnormality (Acute) Hyperglycemia (Acute) Carotid stenosis (Acute) Acute CVA (cerebrovascular accident) Symptomatic stenosis of left carotid artery Medical History H/O head and neck radiation Stroke 08/16/22 treated at [facility]. still experiencing mild slurred speech at times, using a wheelchair, unable to ambulate at this time since her stroke. able to stand and pivot with assistance. History of colon polyps Complicated migraine "COMPLICATED MIGRAINES" - OCCUR OFTEN AND RESEMBLE SYMPTOMS OF A STROKE PER PT History of high cholesterol Acoustic neuroma FOLLOWS DR MITCHELL - UPCOMING RADIATION TREATMENT AFTER CATARACT SURGERY Chronic heart failure DVT prophylaxis Mitral valve disorder DENIES Permanent atrial fibrillation DX 2 YR AGO, NO HX CARDIOVERSION Obesity Anxiety History of TIA (transient ischemic attack) 2004 ,HX PT FOR, NO REMAINING RESIDUAL EFFECTS Hypertension HX BLOOD PRESSURE MEDICINE, ONCE A FIB DX - MED WAS D/C'D - PT REPORTS BLOOD PRESSURE USUALLY RUNS LOW AROUND 106/58 Diabetes INSULIN PUMP Parkinson disease Surgical History History of loop recorder per medical history/record. History of bunionectomy History of bilateral tubal ligation History of esophagogastroduodenoscopy (EGD) History of colonoscopy History of left knee replacement H/O breast biopsy 10/26/17 LMA#4. 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 S/P cholecystectomy HX S/P appendectomy HX Family History Mother Diabetes Congestive heart failure Colorectal cancer Hypertension Brother Congestive heart failure Colorectal cancer Sister Cancer Unknown Pancreatic cancer Son Family history of colonic polyps Social History Smoking Status: Never smoker Second Hand Exposure: No; Do You Dip or Chew Tobacco: No; Hx Alcohol Use: No Hx Substance Use: No Preferred Language: Polish Communication Ability: Effective Visual Impairment: No Limitations Boats Renter Required: No Beliefs That Will Affect Care: None marital status: Unknown Current Living Situation: Personal Care Facility Current Living Situation Comment: with help for 4 hours a day How many Children do You have: 2 Feels Safe at Home: Yes Assistive Devices: Wheelchair Allergies Allergies Allergy/AdvReac Type Severity Reaction Status Date / Time benztropine Allergy Unknown ON UNGA Verified 09/28/24 12:53 [facility] citalopram Allergy Unknown ON UNGA Verified 09/28/24 12:53 [facility] doxycycline Allergy Unknown REMOTE HX, Verified 09/28/24 12:53 ON [place] [facility] minocycline Allergy Unknown REMOTE HX, Verified 09/28/24 12:53 PT NOT SURE REACTION simvastatin Allergy Unknown ON UNGA Verified 09/28/24 12:53 [facility] sulindac Allergy Unknown ON UNGA Verified 09/28/24 12:53 [facility] empagliflozin AdvReac Intermediate Recurrent Verified 09/28/24 12:53 [From Jay] Urinary Tract Infection Home Meds Home Medications Medication Instructions Recorded Confirmed flash glucose sensor (FreeStyle #1 ea 09/02/20 10/02/24 Ruben 2 Sensor kit) blood sugar diagnostic (OneTouch #10 ea 01/13/22 10/02/24 Verio test strips) clopidogrel 75 mg tablet (Plavix) 75 mg PO DAILY 08/24/22 12/08/24 atorvastatin 20 mg tablet 20 mg PO HS 07/27/23 12/08/24 fluticasone furoate 27.5 1 spray intranasal DAILY 11/02/23 12/08/24 mcg/actuation nasal spray,suspension (Flonase Sensimist) menthol 0.44 %-zinc oxide 20.6 % 1 applic topical TID PRN 11/02/23 12/08/24 topical ointment (Calmoseptine) PROTECTANT ON BUTTOCKS nystatin 100,000 unit/gram topical 1 applic topical BID PRN 11/02/23 12/08/24 powder RASH/IRRITATION IN ABD FOLDS sennosides 8.6 mg-docusate sodium 1 tab-cap PO BID 11/02/23 12/08/24 50 mg tablet (Senna Plus) baclofen 10 mg tablet 10 mg PO BID PRN BACK SPASMS 10/02/24 12/08/24 bumetanide 0.5 mg tablet 0.5 mg PO DAILY PRN WT GAIN 3LBS 10/02/24 12/08/24 OR GREATER esomeprazole magnesium 40 mg 40 mg PO DAILY 10/02/24 12/08/24 capsule,delayed release melatonin 10 mg tablet 10 mg PO HS 10/02/24 12/08/24 mirtazapine 7.5 mg tablet 7.5 mg PO HS 10/02/24 12/08/24 spironolactone 25 mg tablet 25 mg PO DAILY 10/02/24 12/08/24 acetaminophen 500 mg tablet 1,000 mg PO BID PRN pain/fever 12/08/24 12/08/24 acetaminophen 500 mg tablet 1,000 mg PO HS 12/08/24 12/08/24 carbidopa 25 mg-levodopa 100 mg 2 tab PO UD 12/08/24 12/08/24 tablet carbidopa ER 25 mg-levodopa 100 mg 2 tab PO PM 12/08/24 12/08/24 tablet,extended release Previous Rx's Medication Instructions Recorded insulin glargine 100 unit/mL 15 unit (0.15 mL) subcut QAM #10 mL 07/03/24 subcutaneous solution (Lantus U-100 Insulin) insulin syringe,safety needle 0.5 #100 ea 07/03/24 mL 29 gauge x 1/2" (BD SafetyGlide Insulin Syringe) cholecalciferol (vitamin D3) 125 125 mcg PO DAILY #90 caps 08/22/24 mcg (5,000 unit) capsule aluminum-mag hydroxide-simethicone 15 ml PO Q6H PRN indigestion 10/06/24 200 mg-200 mg-20 mg/5 mL oral susp #3,000 mL (Maalox Advanced) bumetanide 1 mg tablet 0.5 mg (1/2 x 1 mg) PO 10/06/24 SuTuThSa@0900 #10 tabs bumetanide 1 mg tablet 0.75 mg (0.75 x 1 mg) PO 10/06/24 MoWeFr@0900 #10 tabs insulin lispro 100 unit/mL See Rx Instructions subcut 11/17/24 subcutaneous solution (Humalog .COMPLEX #72 mL U-100 Insulin) Results & Data (ED) Vital Signs Vital Signs - 24 hr 12/08/24 10:17 12/08/24 10:25 12/08/24 10:57 Temperature 37.1 C 37.1 C Temperature Source Oral Oral Pulse Rate 75 Pulse Rate [Apical] 75 Pulse Rhythm Irregular Respiratory Rate 14 14 Respiratory Effort / Characteristics Non-Labored Spontaneous Respiratory Depth Normal Respiratory Pattern Regular Blood Pressure 177/80 H Blood Pressure [Right Arm] 177/80 H Blood Pressure Mean 112 Blood Pressure Mean [Right Arm] 112 Pulse Oximetry 98 98 98 Oxygen Delivery Method Room Air Room Air Room Air Sepsis Recent Fever Within 48 Hours No Sepsis New/Unexplained Change in Mental Status Yes Sepsis Action Taken by Nursing No Action Required 12/08/24 11:17 12/08/24 11:54 12/08/24 12:00 Temperature Temperature Source Pulse Rate 65 Pulse Rate [Apical] 70 66 Pulse Rhythm Respiratory Rate 12 14 Respiratory Effort / Characteristics Respiratory Depth Respiratory Pattern Blood Pressure Blood Pressure [Right Arm] 126/68 142/70 H Blood Pressure Mean Blood Pressure Mean [Right Arm] 87 94 Pulse Oximetry 96 96 Oxygen Delivery Method Room Air Room Air Sepsis Recent Fever Within 48 Hours Sepsis New/Unexplained Change in Mental Status Sepsis Action Taken by Nursing 12/08/24 15:54 Temperature Temperature Source Pulse Rate 60 Pulse Rate [Apical] Pulse Rhythm Respiratory Rate Respiratory Effort / Characteristics Respiratory Depth Respiratory Pattern Blood Pressure Blood Pressure [Right Arm] Blood Pressure Mean Blood Pressure Mean [Right Arm] Pulse Oximetry Oxygen Delivery Method Sepsis Recent Fever Within 48 Hours Sepsis New/Unexplained Change in Mental Status Sepsis Action Taken by Nursing Laboratory Data 12/08/24 10:30 12/08/24 10:30 Lab Results 12/08/24 12/08/24 12/08/24 Range/Units 10:30 11:22 14:44 WBC 5.17 (4.8-10.8) K/ul RBC 4.17 L (4.20-5.40) M/uL Hgb 12.3 (12.0-16.0) g/dl Hct 35.7 L (37.0-47.0) % MCV 85.6 (80.0-100.0) fL MCH 29.5 (25.0-34.0) pg MCHC 34.5 (32.0-36.0) g/dL RDW Std Deviation 44.6 (36.4-46.3) fL RDW Coeff of Vicky 14.5 (11.5-14.5) % Plt Count 174 (130-400) K/uL MPV 10.8 (9.4-12.4) fL Immature Gran % (Auto) 0.6 % Neut % (Auto) 62.3 % Lymph % (Auto) 25.7 % [place] % (Auto) 8.5 % Eos % (Auto) 2.5 % Baso % (Auto) 0.4 % Neut # (Auto) 3.22 (1.40-6.50) K/uL Lymph # (Auto) 1.33 (1.20-3.40) K/uL [place] # (Auto) 0.44 (0.11-0.59) K/uL Eos # (Auto) 0.13 (0.00-0.50) K/uL Baso # (Auto) 0.02 (0.00-0.20) K/uL Immature Gran # (Auto) 0.03 (0.01-0.20) K/uL PT 11.1 (9.0-12.0) Seconds INR 1.0 (0.9-1.1) VBG pH (7.36-7.41) VBG pCO2 (38-50) mmHg VBG pO2 mmHg VBG HCO3 mmol/L VBG O2 Saturation % VBG Base Excess mEq/L Sodium 141 (136-145) mmol/L Potassium 3.4 L (3.5-5.1) mmol/L Chloride 102 (98-107) mmol/L Carbon Dioxide 32 (21-32) mmol/L Anion Gap 7 (3-11) BUN 13 (6-23) mg/dl Creatinine 0.70 (0.6-1.2) mg/dl Est Cr Clr Drug Dosing 73.2 ml/min eGFR 88.47 BUN/Creatinine Ratio 18.6 (10-20) Glucose 173 H (70-99(Fasting)) mg/dl POC Glucose 162 H (70-99) mg/dl Lactate 1.3 (0.4-2.0) mmol/L Calcium 9.1 (8.6-10.3) mg/dl Total Bilirubin 1.5 H (0.2-1.0) mg/dl AST 10 L (13-39) U/L ALT 3 L (7-52) U/L Alkaline Phosphatase 72 (34-104) U/L Troponin I High Sens 8.9 (0-14) pg/ml Total Protein 6.5 (6.0-8.3) gm/dl Albumin 4.0 (3.4-5.0) gm/dl Globulin 2.5 (2.5-4.0) gm/dl Albumin/Globulin Ratio 1.6 (0.9-2) Lipase 3 L (11-82) U/L 12/08/24 Range/Units 14:51 WBC (4.8-10.8) K/ul RBC (4.20-5.40) M/uL Hgb (12.0-16.0) g/dl Hct (37.0-47.0) % MCV (80.0-100.0) fL MCH (25.0-34.0) pg MCHC (32.0-36.0) g/dL RDW Std Deviation (36.4-46.3) fL RDW Coeff of Vicky (11.5-14.5) % Plt Count (130-400) K/uL MPV (9.4-12.4) fL Immature Gran % (Auto) % Neut % (Auto) % Lymph % (Auto) % [place] % (Auto) % Eos % (Auto) % Baso % (Auto) % Neut # (Auto) (1.40-6.50) K/uL Lymph # (Auto) (1.20-3.40) K/uL [place] # (Auto) (0.11-0.59) K/uL Eos # (Auto) (0.00-0.50) K/uL Baso # (Auto) (0.00-0.20) K/uL Immature Gran # (Auto) (0.01-0.20) K/uL PT (9.0-12.0) Seconds INR (0.9-1.1) VBG pH 7.44 H (7.36-7.41) VBG pCO2 44 (38-50) mmHg VBG pO2 64 mmHg VBG HCO3 30 mmol/L VBG O2 Saturation 94.0 % VBG Base Excess 5.0 mEq/L Sodium (136-145) mmol/L Potassium (3.5-5.1) mmol/L Chloride (98-107) mmol/L Carbon Dioxide (21-32) mmol/L Anion Gap (3-11) BUN (6-23) mg/dl Creatinine (0.6-1.2) mg/dl Est Cr Clr Drug Dosing ml/min eGFR BUN/Creatinine Ratio (10-20) Glucose (70-99(Fasting)) mg/dl POC Glucose (70-99) mg/dl Lactate (0.4-2.0) mmol/L Calcium (8.6-10.3) mg/dl Total Bilirubin (0.2-1.0) mg/dl AST (13-39) U/L ALT (7-52) U/L Alkaline Phosphatase (34-104) U/L Troponin I High Sens (0-14) pg/ml Total Protein (6.0-8.3) gm/dl Albumin (3.4-5.0) gm/dl Globulin (2.5-4.0) gm/dl Albumin/Globulin Ratio (0.9-2) Lipase (11-82) U/L Administered Medications Discontinued Medications Acetaminophen (Ofirmev) 1,000 mg in 100 mls @ 400 mls/hr IV NOW STA Stop: 12/08/24 11:11 Last Infusion: 12/08/24 11:32 Dose: Infused Documented By: Admin: 12/08/24 11:17 Dose: 400 mls/hr Documented By: DENISSE Ioversol (Optiray 320 100ml) 93 ml IV ONCE ONE Stop: 12/08/24 12:09 Last Admin: 12/08/24 12:10 Dose: 93 ml Documented By: NICK Morphine Sulfate (Morphine Sulfate 4 Mg/Ml 1 Ml Carp\\Vial) 4 mg IV NOW STA Stop: 12/08/24 13:34 Last Admin: 12/08/24 14:35 Dose: Not Given Documented By: DENISSE Imaging Data Radiologist's Impression: Abdomen/Pelvis CT 12/08/24 10:[address] WITH IV CONTRAST CT DOSE: 3488 HISTORY: RUQ pain s/p fall TECHNIQUE: Multiaxial CT images of the abdomen and pelvis were performed following the IV administration of 90 cc of Optiray, A dose lowering technique was utilized adhering to the principles of ALARA. COMPARISON STUDY: 10/04/2024 FINDINGS: Jimenez: Gallbladder is surgically absent liver, spleen, pancreas, adrenal glands, and kidneys show no evidence of acute injury. There are a few tiny cysts of the kidneys. No evidence of abdominal aortic injury. Pelvis: Uterus and adnexa are grossly unremarkable. Urinary bladder is grossly unremarkable. No bowel inflammation or obstruction. No free fluid or free air. No hematoma seen. Osseous structures: There is osteopenia. There are a few bone islands. There are acute nondisplaced fractures anteriorly and laterally at the right eighth and ninth ribs. There is severe lumbar degenerative disc disease. No other acute fractures seen at the abdomen or pelvis. IMPRESSION: 1. Acute lower right rib fractures. 2. No other acute injury seen in the abdomen or pelvis. ACT 112: Negative or not required by law. The above report was generated using voice recognition software. It may contain grammatical, syntax or spelling errors. Electronically signed by: Matheus Mir M.D. 12/08/2024 12:[address] 12/08/24 10:57 CT SCAN OF THE CERVICAL SPINE CLINICAL HISTORY: Fall. COMPARISON STUDY: Cervical spine CT October 02, 2024. Cervical spine MRI October 03, 2024. TECHNIQUE: CT scan of the cervical spine is performed from the skull base to the upper thoracic spine. Images are reviewed in the axial, sagittal, and coronal planes. IV contrast was not administered for this examination. A dose lowering technique was utilized adhering to the principles of ALARA. CT DOSE: 3488.49 mGy.cm FINDINGS: Reversal of the cervical lordosis is unchanged. No acute cervical spine fractures are identified. Severe multilevel facet arthrosis and degenerative disc disease is again noted. The central canal and neural foramen are suboptimally assessed given CT technique. There is no prevertebral edema. A left carotid stent and a right thyroid lobe goiter are again noted. IMPRESSION: 1. No acute cervical spine fracture or subluxation. 2. Severe multilevel degenerative disc disease and facet arthrosis within the cervical spine. ACT 112: Negative or not required by law. Electronically signed by: Subhash Pearl M.D. 12/08/2024 12:[address] 12/08/24 10:[address] WITH CONTRAST CT DOSE: 3488 HISTORY: R lower chest wall pain s/p fall TECHNIQUE: Multiaxial CT images of the chest were performed following the IV administration of 90 cc of Optiray. A dose lowering technique was utilized adhering to the principles of ALARA. COMPARISON STUDY: 05/12/2024 FINDINGS: There are trace airway secretions. There is no pulmonary consolidation or pleural effusion. No pneumothorax. There are a few stable bilateral pulmonary nodules, largest lateral right upper lobe measures 5 mm. No interval significant pulmonary nodule seen. Stable enlarged heterogeneous right thyroid lobe. No enlarged adenopathy. No pericardial effusion. No evidence of thoracic aortic injury or mediastinal hematoma. There are acute nondisplaced fractures anteriorly and laterally at the right eighth and ninth ribs. There are a few old healed rib fractures bilaterally. There are mild diffuse thoracic spine degenerative changes. Stable tiny sclerotic foci at the T7 and T8 vertebral bodies, consistent with bone islands. IMPRESSION: 1. Acute nondisplaced right-sided rib fractures with no pneumothorax. 2. No other acute injury seen at the chest. ACT 112: Negative or not required by law. Electronically signed by: Matheus Mir M.D. 12/08/2024 12:[address] 12/08/24 10:57 CT SCAN OF THE BRAIN WITHOUT IV CONTRAST CLINICAL HISTORY: Fall. COMPARISON STUDY: Head CT October 02, 2024. MRI of the brain October 03, 2024. TECHNIQUE: Unenhanced axial CT scan of the brain was performed from the vertex to the skull base. A dose lowering technique was utilized adhering to the principles of ALARA. FINDINGS: Brain parenchyma: No acute intracranial hemorrhage, midline shift or mass effect is present. Kendrick-white matter differentiation is preserved. There are no extra- axial fluid collections. There are no findings to suggest acute dural sinus thrombosis or acute territorial infarct. White matter hypodensities are unchanged and favor small vessel disease. Right cerebellopontine angle mass is better depicted on MRI of October 03, 2024. Ventricles, sulci, cisterns: There is no hydrocephalus. The basal cisterns are patent. Calvarium: There are no calvarial fractures. Sinuses and mastoids: The visualized paranasal sinuses are clear. The mastoid air cells are well pneumatized. Orbits: Left globe prosthesis is incidentally noted. IMPRESSION: 1. No acute intracranial findings. 2. No calvarial fractures. ACT 112: Negative or not required by law. Electronically signed by: Subhash Pearl M.D. 12/08/2024 12:40 PM Discharge Plan Visit Data Chief Complaint: Fall Stated Complaint: LEHTARGIC, FALL, R SIDE & AB PAIN ED Provider: Rosalia Segura Discharge Problem: Multiple fractures of ribs, right side, initial encounter for closed fracture, AMS (altered mental status) Condition: Fair Forms Stand Alone Forms: My [facility] Prescriptions Prescriptions: No Action insulin glargine [Lantus U-100 Insulin] 100 unit/mL solution 15 unit subcut QAM Qty: 10 1RF Rx Instructions: To be used for pump failure. Inject 15 units of Lantus (DME) BD SafetyGlide Insulin Syringe 0.5 mL 29 gauge x 1/2" syringe See Rx Instructions .Route Qty: 100 1RF Rx Instructions: Inject up to 4x a day if pump failed cholecalciferol (vitamin D3) 125 mcg (5,000 unit) capsule 125 mcg PO DAILY Qty: 90 1RF insulin lispro [Humalog U-100 Insulin] 100 unit/mL solution See Rx Instructions subcut .COMPLEX Qty: 72 3RF Rx Instructions: via insulin pump subcutaneously; continuously MDD 80 units atorvastatin 20 mg tablet 20 mg PO HS (DME) FreeStyle Ruben 2 Sensor Kit See Rx Instructions .ROUTE .MEDSUPPLY Qty: 1 Rx Instructions: As directed (DME) OneTouch Verio test strips Strip See Rx Instructions .ROUTE .MEDSUPPLY Qty: 10 Rx Instructions: Test blood sugar once daily PRN clopidogrel [Plavix] 75 mg Tablet 75 mg PO DAILY spironolactone 25 mg tablet 25 mg PO DAILY baclofen 10 mg tablet 10 mg PO BID PRN (Reason: BACK SPASMS) mirtazapine 7.5 mg tablet 7.5 mg PO HS melatonin 10 mg Tablet 10 mg PO HS bumetanide 0.5 mg tablet 0.5 mg PO DAILY PRN (Reason: WT GAIN 3LBS OR GREATER) Rx Instructions: TAKE IN ADDITION TO ROUTINE FOR EDEMA esomeprazole magnesium 40 mg capsule,delayed release(DR/EC) 40 mg PO DAILY bumetanide 1 mg Tablet 0.5 mg PO SuTuThSa@0900 Qty: 10 0RF bumetanide 1 mg Tablet 0.75 mg PO MoWeFr@0900 Qty: 10 0RF alum-mag hydroxide-simeth [Maalox Advanced] 200-200-20 mg/5 mL suspension 15 ml PO Q6H PRN (Reason: indigestion) Qty: 3000 0RF sennosides-docusate sodium [Senna Plus] 8.6-50 mg Tablet 1 tab-cap PO BID nystatin 100,000 unit/gram Powder 1 applic TOPICAL BID PRN (Reason: RASH/IRRITATION IN ABD FOLDS) Rx Instructions: ABDOMINAL FOLDS AND UNDER BREASTS Flonase Sensimist 27.5 mcg/actuation [place],Suspension 1 spray INTRANASAL DAILY Rx Instructions: into each nostril menthol-zinc oxide [Calmoseptine] 0.44-20.6 % Ointment 1 applic TOPICAL TID PRN (Reason: PROTECTANT ON BUTTOCKS) acetaminophen [Tylenol Ex Str Rapid Release] 500 mg Tablet 1,000 mg PO BID MDD 3gm/24h PRN (Reason: pain/fever) acetaminophen [Tylenol Ex Str Rapid Release] 500 mg Tablet 1,000 mg PO HS carbidopa-levodopa 25-100 mg tablet extended release 2 tab PO PM Rx Instructions: 2 tab orally ;TAKE NIGHTLY AT 8 PM carbidopa-levodopa 25-100 mg tablet 2 tab PO UD Rx Instructions: Take 2 tablets by mouth daily at 7:00, 11:00, 16:00 Referrals Referrals: Damaris Vega MD [Primary Care Provider] -
[2024-12-08] MEDS: ACETAMINOPHEN 1,000 MG/100 ML VIAL IV STA (11:17)
[2024-12-08 11:20] LABS: Basophils # (auto) 0.02 K/uL (0.00-0.20); Basophils % (auto) 0.4 %; Eosinophils # (auto) 0.13 K/uL (0.00-0.50); Eosinophils % (auto) 2.5 %; Hematocrit (blood only) 35.7 % (37.0-47.0); Hemoglobin 12.3 g/dl (12.0-16.0); Immature Granulocytes # (auto) 0.03 K/uL (0.01-0.20); Immature Granulocytes % (auto) 0.6 %; Lymphocytes # (auto) 1.33 K/uL (1.20-3.40); Lymphocytes % (auto) 25.7 %; Mean Corpuscular Hemoglobin 29.5 pg (25.0-34.0); Mean Corpuscular Hgb Conc 34.5 g/dL (32.0-36.0); Mean Corpuscular Volume 85.6 fL (80.0-100.0); Mean Platelet Volume 10.8 fL (9.4-12.4); Monocytes # (auto) 0.44 K/uL (0.11-0.59); Monocytes % (auto) 8.5 %; Neutrophils # (auto) 3.22 K/uL (1.40-6.50); Neutrophils % (auto) 62.3 %; Platelet Count 174 K/uL (130-400); RDW Coefficient of Variation 14.5 % (11.5-14.5); RDW Standard Deviation 44.6 fL (36.4-46.3); Red Blood Count 4.17 M/uL (4.20-5.40); White Blood Count 5.17 K/ul (4.8-10.8)
[2024-12-08 11:39] LABS: Albumin Globulin Ratio 1.6 (0.9-2); BUN Creatinine Ratio 18.6 (10-20); Bilirubin,Total 1.5 mg/dl (0.2-1.0); Calcium 9.1 mg/dl (8.6-10.3); Creatinine Clr Calc Pharmacy 73.2 ml/min; Globulin 2.5 gm/dl (2.5-4.0); Potassium 3.4 mmol/L (3.5-5.1); Total Protein 6.5 gm/dl (6.0-8.3)
[2024-12-08 11:45] LABS: Troponin I High Sensitivity 8.9 pg/ml (0-14)
[2024-12-08 11:46] LABS: Prothrombin Time 11.1 Seconds (9.0-12.0)
[2024-12-08] MEDS: OPTIRAY 320 100ml IV ONE (12:10)
--- NOTE | 2024-12-08 12:35 | CT Scan Report ---
CHEST CT WITH CONTRAST CT DOSE: 3488 HISTORY: R lower chest wall pain s/p fall TECHNIQUE: Multiaxial CT images of the chest were performed following the IV administration of 90 cc of Optiray. A dose lowering technique was utilized adhering to the principles of ALARA. COMPARISON STUDY: 05/12/2024 FINDINGS: There are trace airway secretions. There is no pulmonary consolidation or pleural effusion. No pneumothorax. There are a few stable bilateral pulmonary nodules, largest lateral right upper lob e measures 5 mm. No interval significant pulmonary nodule seen. Stable enlarged heterogeneous right t hyroid lobe. No enlarged adenopathy. No pericardial effusion. No evidence of thoracic aortic injury o r mediastinal hematoma. There are acute nondisplaced fractures anteriorly and laterally at the right eighth and ninth ribs. There are a few old healed rib fractures bilaterally. There are mild diffuse t horacic spine degenerative changes. Stable tiny sclerotic foci at the T7 and T8 vertebral bodies, con sistent with bone islands. IMPRESSION: 1. Acute nondisplaced right-sided rib fractures with no pneumothorax. 2. No other acute injury seen at the chest. ACT 112: Negative or not required by law. Electronically signed by: Matheus Mir M.D. 12/08/2024 12:32 PM
--- NOTE | 2024-12-08 12:41 | CT Scan Report ---
CT SCAN OF THE BRAIN WITHOUT IV CONTRAST CLINICAL HISTORY: Fall. COMPARISON STUDY: Head CT October 02, 2024. MRI of the brain October 03, 2024. TECHNIQUE: Unenhanced axial CT scan of the brain was performed from the vertex to the skull base. A dose lowering technique was utilized adhering to the principles of ALARA. FINDINGS: Brain parenchyma: No acute intracranial hemorrhage, midline shift or mass effect is present. Kendrick-whi te matter differentiation is preserved. There are no extra-axial fluid collections. There are no find ings to suggest acute dural sinus thrombosis or acute territorial infarct. White matter hypodensities are unchanged and favor small vessel disease. Right cerebellopontine angle mass is better depicted o n MRI of October 03, 2024. Ventricles, sulci, cisterns: There is no hydrocephalus. The basal cisterns are patent. Calvarium: There are no calvarial fractures. Sinuses and mastoids: The visualized paranasal sinuses are clear. The mastoid air cells are well pneu matized. Orbits: Left globe prosthesis is incidentally noted. IMPRESSION: 1. No acute intracranial findings. 2. No calvarial fractures. ACT 112: Negative or not required by law. Electronically signed by: Subhash Pearl M.D. 12/08/2024 12:40 PM
--- NOTE | 2024-12-08 12:45 | CT Scan Report ---
CT SCAN OF THE CERVICAL SPINE CLINICAL HISTORY: Fall. COMPARISON STUDY: Cervical spine CT October 02, 2024. Cervical spine MRI October 03, 2024. TECHNIQUE: CT scan of the cervical spine is performed from the skull base to the upper thoracic spine . Images are reviewed in the axial, sagittal, and coronal planes. IV contrast was not administered fo r this examination. A dose lowering technique was utilized adhering to the principles of ALARA. CT DOSE: 3488.49 mGy.cm FINDINGS: Reversal of the cervical lordosis is unchanged. No acute cervical spine fractures are ident ified. Severe multilevel facet arthrosis and degenerative disc disease is again noted. The central ca nal and neural foramen are suboptimally assessed given CT technique. There is no prevertebral edema. A left carotid stent and a right thyroid lobe goiter are again noted. IMPRESSION: 1. No acute cervical spine fracture or subluxation. 2. Severe multilevel degenerative disc disease and facet arthrosis within the cervical spine. ACT 112: Negative or not required by law. Electronically signed by: Subhash Pearl M.D. 12/08/2024 12:43 PM
--- NOTE | 2024-12-08 13:00 | CT Scan Report ---
ABDOMEN AND PELVIS CT WITH IV CONTRAST CT DOSE: 3488 HISTORY: RUQ pain s/p fall TECHNIQUE: Multiaxial CT images of the abdomen and pelvis were performed following the IV administrat ion of 90 cc of Optiray, A dose lowering technique was utilized adhering to the principles of ALARA. COMPARISON STUDY: 10/04/2024 FINDINGS: Jimenez: Gallbladder is surgically absent liver, spleen, pancreas, adrenal glands, and kidneys show no e vidence of acute injury. There are a few tiny cysts of the kidneys. No evidence of abdominal aortic i njury. Pelvis: Uterus and adnexa are grossly unremarkable. Urinary bladder is grossly unremarkable. No bowel inflammation or obstruction. No free fluid or free air. No hematoma seen. Osseous structures: There is osteopenia. There are a few bone islands. There are acute nondisplaced f ractures anteriorly and laterally at the right eighth and ninth ribs. There is severe lumbar degenera tive disc disease. No other acute fractures seen at the abdomen or pelvis. IMPRESSION: 1. Acute lower right rib fractures. 2. No other acute injury seen in the abdomen or pelvis. ACT 112: Negative or not required by law. The above report was generated using voice recognition software. It may contain grammatical, syntax o r spelling errors. Electronically signed by: Matheus Mir M.D. 12/08/2024 12:59 PM
--- NOTE | 2024-12-08 13:38 | Electrocardiogram Report ---
Test Reason : Blood Pressure : */* mmHG Vent. Rate : 77 BPM Atrial Rate : * BPM P-R Int : * ms QRS Dur : 92 ms QT Int : 540 ms P-R-T Axes : * -36 42 degrees QTcB Int : 611 ms Atrial fibrillation Left axis deviation Septal infarct , age undetermined Abnormal ECG When compared with ECG of 02-Oct-2024 21:15, Septal infarct is now Present Nonspecific T wave abnormality now evident in Inferior leads Nonspecific T wave abnormality, worse in Anterolateral leads QT has lengthened Confirmed by Aleksandr Carrera ([id number]) on 12/08/2024 1:37:32 PM Referred By: REFERRED SELF Confirmed By: Aleksandr Carrera
[2024-12-08] MEDS: MoRPHine SULFATE 4 MG/ML 1 ML CARP\\VIAL IV STA (14:35)
[2024-12-08 14:58] LABS: HCO3 VBG 30 mmol/L; PCO2 VBG 44 mmHg (38-50); PO2 VBG 64 mmHg; pH VBG 7.44 (7.36-7.41)
[2024-12-08] MEDS ORDERED: ACETAMINOPHEN 500 MG TAB PO PRN (16:47)
[2024-12-08] MEDS ORDERED: ACETAMINOPHEN 325 MG TAB PO PRN (16:50)
[2024-12-08] MEDS ORDERED: PHARMACY GLYCEMIC MGMT CONSULT PRN ×2 (16:52→21:34)
[2024-12-08] MEDS ORDERED: NON-FORMULARY MEDICATION (Insulin Lispro [Humalog U-100 Insulin] 100 unit/mL solution) SQ SCH (17:00)
--- NOTE | 2024-12-08 17:03 | History & Physical Report ---
Date of Service December 08, 2024 Assessment & Plan (1) Multiple fractures of ribs, right side, initial encounter for closed fra cture: Plan: -pain control with Tylenol and morphine -incentive spirometer -PT/OT evaluation (2) AMS (altered mental status): Plan: -pt with h/o of transient alteration of awareness, confirmed by staff, pt has episodes were she appears sleeping but is aware -no metabolic etiology of symptoms found -CT head negative -con't to observe (3) Paroxysmal A-fib: Plan: -noted on EKG to be in afib rate controlled -not on anticoagulation (4) Diabetes type 2, uncontrolled: Plan: -insulin pump -lantus -pharm glycemic control (5) Stroke (cerebrum): Plan: -on plavix (6) Parkinsons disease: Plan: -con't carbadopa-levodopa (7) CHF (congestive heart failure): Plan: -bumex and spironolactone History of Present Illness Chief Complaint: AMS Primary Care Provider: Damaris Vega MD Pt is a 79 y/o female with pmh of DM, transient alteration of awareness, paroxysmal a-fib, cerebellar CVA, Parkinson's disease, diastolic CHF, who presents with right lower chest wall pain and AMS. Pt lives in a care facility and staff states 5 days ago she lost her balance and fell while standing up by her commode hitting her right chest and abdomen. She did not have any head strike or LOC. Pt does suffer from transient alternation of awareness and at times appears to be lethargic and sleeping as per the staff, but she is aware of her surroundings. This happens occasionally and she has been seen by neurology. Staff states this week she has been having increase in the number of episodes. In the ER CT head was negative. CT chest showed multiple right sided rib fractures. Her glucose was 160, EKG showed afib @77bpm. Her labs and UA showed no evidence of metabolic etiology for her AMS. Pt continued to be lethargic upon examination, however did respond to painful stimuli and had awareness of her body position. Allergies Allergy/AdvReac Type Severity Reaction Status Date / Time benztropine Allergy Unknown [place] Verified 09/28/24 12:53 [facility] citalopram Allergy Unknown [place] Verified 09/28/24 12:53 [facility] doxycycline Allergy Unknown REMOTE HX, Verified 09/28/24 12:53 [facility] minocycline Allergy Unknown REMOTE HX, Verified 09/28/24 12:53 PT NOT SURE REACTION simvastatin Allergy Unknown [place] Verified 09/28/24 12:53 [facility] LIST sulindac Allergy Unknown [place] Verified 09/28/24 12:53 [facility] LIST empagliflozin AdvReac Intermediate Recurrent Verified 09/28/24 12:53 [facility] Urinary Tract Infection Home Medications Medication Instructions Recorded Confirmed Type flash glucose sensor (FreeStyle #1 ea 09/02/20 10/02/24 History Ruben 2 Sensor kit) blood sugar diagnostic (OneTouch #10 ea 01/13/22 10/02/24 History Verio test strips) clopidogrel 75 mg tablet (Plavix) 75 mg PO DAILY 08/24/22 12/08/24 History atorvastatin 20 mg tablet 20 mg PO HS 07/27/23 12/08/24 History fluticasone furoate 27.5 1 spray intranasal DAILY 11/02/23 12/08/24 History mcg/actuation nasal spray,suspension (Flonase Sensimist) menthol 0.44 %-zinc oxide 20.6 % 1 applic topical TID PRN 11/02/23 12/08/24 History topical ointment (Calmoseptine) PROTECTANT ON BUTTOCKS nystatin 100,000 unit/gram topical 1 applic topical BID PRN 11/02/23 12/08/24 History powder RASH/IRRITATION IN ABD FOLDS sennosides 8.6 mg-docusate sodium 1 tab-cap PO BID 11/02/23 12/08/24 History 50 mg tablet (Senna Plus) insulin glargine 100 unit/mL 15 unit (0.15 mL) subcut QAM #10 mL 07/03/24 12/08/24 Rx subcutaneous solution (Lantus U-100 Insulin) insulin syringe,safety needle 0.5 #100 ea 07/03/24 10/02/24 Rx mL 29 gauge x 1/2" (BD SafetyGlide Insulin Syringe) cholecalciferol (vitamin D3) 125 125 mcg PO DAILY #90 caps 08/22/24 12/08/24 Rx mcg (5,000 unit) capsule baclofen 10 mg tablet 10 mg PO BID PRN BACK SPASMS 10/02/24 12/08/24 History bumetanide 0.5 mg tablet 0.5 mg PO DAILY PRN WT GAIN 3LBS 10/02/24 12/08/24 History OR GREATER esomeprazole magnesium 40 mg 40 mg PO DAILY 10/02/24 12/08/24 History capsule,delayed release melatonin 10 mg tablet 10 mg PO HS 10/02/24 12/08/24 History mirtazapine 7.5 mg tablet 7.5 mg PO HS 10/02/24 12/08/24 History spironolactone 25 mg tablet 25 mg PO DAILY 10/02/24 12/08/24 History aluminum-mag hydroxide-simethicone 15 ml PO Q6H PRN indigestion 10/06/24 12/08/24 Rx 200 mg-200 mg-20 mg/5 mL oral susp #3,000 mL (Maalox Advanced) bumetanide 1 mg tablet 0.5 mg (1/2 x 1 mg) PO 10/06/24 12/08/24 Rx SuTuThSa@0900 #10 tabs bumetanide 1 mg tablet 0.75 mg (0.75 x 1 mg) PO 10/06/24 12/08/24 Rx MoWeFr@0900 #10 tabs insulin lispro 100 unit/mL See Rx Instructions subcut 11/17/24 12/08/24 Rx subcutaneous solution (Humalog .COMPLEX #72 mL U-100 Insulin) acetaminophen 500 mg tablet 1,000 mg PO BID PRN pain/fever 12/08/24 12/08/24 History acetaminophen 500 mg tablet 1,000 mg PO HS 12/08/24 12/08/24 History carbidopa 25 mg-levodopa 100 mg 2 tab PO UD 12/08/24 12/08/24 History tablet carbidopa ER 25 mg-levodopa 100 mg 2 tab PO PM 12/08/24 12/08/24 History tablet,extended release Past Med/Surg History Problem List (Updated 12/08/24 @ 16:24 by Rosalia Segura MD) AMS (altered mental status) (Acute) Multiple fractures of ribs, right side, initial encounter for closed fracture (Acute) Abdominal pain (Acute) Transient alteration of awareness Cervical spinal stenosis (Acute) Vitamin D deficiency Contusion of arm, right (Acute) Multiple falls (Acute) Ambulatory dysfunction (Acute) Generalized weakness (Acute) CHI (closed head injury) (Acute) Traumatic hematoma of buttock (Acute) Ambulatory dysfunction (Acute) Traumatic hematoma of forehead (Acute) GERD (gastroesophageal reflux disease) HX History of stroke in prior 3 months Paroxysmal A-fib (Acute) Facial droop (Acute) Slurred speech (Acute) Stroke (cerebrum) Brain TIA (Acute) Facial droop (Acute) Acute right-sided muscle weakness (Acute) Stroke-like symptoms Status post carotid surgery Shortness of breath (Acute) Chest pain (Acute) Dizziness (Acute) Ataxia (Acute) Hypotension (Acute) Chronic pain (Chronic) CHF (congestive heart failure) (Chronic) Edema of right lower extremity (Acute) Parkinsons disease Syncope (Acute) Closed head injury (Acute) UTI (urinary tract infection) (Acute) Pneumonia (Acute) A-fib Non-healing wound Orthostatic dizziness Vulvovaginitis (Acute) Tremor (Acute) Simple goiter (Acute) Sensory problems with limbs (Acute) Sensorineural hearing loss (SNHL) of both ears (Acute) Right asymmetrical SNHL (Acute) REM sleep behavior disorder (Acute) Parkinson's disease dementia (Acute) Papilloma of breast (Acute) 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 (Acute) Nonproliferative diabetic retinopathy of both eyes (Acute) Nausea (Acute) Migraine headache (Acute) Menopause (Acute) Hypoglycemia (Acute) Goiter (Acute) Female genital symptoms (Acute) Dyslipidemia (Acute) Diabetic peripheral neuropathy (Acute) Diabetes with neurologic complications (Acute) Diabetes type 2, uncontrolled (Acute) Depression (Acute) DM (diabetes mellitus), type 2, uncontrolled w/neurologic complication (Acute) Concussion (Acute) Cervicalgia (Acute) Cerebrovascular disease (Acute) Breast pain (Acute) Bilateral impacted cerumen (Acute) Ataxic gait (Acute) Arthritis (Acute) Acoustic neuroma (Acute) Abnormal mammogram (Acute) Acute exacerbation of CHF (congestive heart failure) Anxiety Parkinson disease (Acute) Acute on chronic diastolic congestive heart failure H/O syncope Falls Hypertension Weakness (Acute) Weakness (Acute) Hematuria Hyperlipidemia Diastolic CHF Controlled type 2 diabetes mellitus with neurologic complication, with long-term current use of insulin Type 2 diabetes mellitus with retinopathy, with long-term current use of insulin Falls Dysesthesia Alteration in tactile sense Expressive aphasia (Acute) Chest pain (Acute) Hematoma of right lower extremity (Acute) Lower extremity pain, right (Acute) Hip pain Venous stasis DVT prophylaxis Rhabdomyolysis Fall (Acute) Generalized weakness (Acute) Depression Rhabdomyolysis (Acute) Acute dehydration (Acute) Acute hyperglycemia (Acute) Metabolic acidosis (Acute) Leukocytosis Elevated troponin Peripheral neuropathy Constipation Expressive aphasia Speech abnormality (Acute) Hyperglycemia (Acute) Carotid stenosis (Acute) Acute CVA (cerebrovascular accident) Symptomatic stenosis of left carotid artery Medical History H/O head and neck radiation Stroke 08/16/22 treated at [facility]. still experiencing mild slurred speech at times, using a wheelchair, unable to ambulate at this time since her stroke. able to stand and pivot with assistance. History of colon polyps Complicated migraine "COMPLICATED MIGRAINES" - OCCUR OFTEN AND RESEMBLE SYMPTOMS OF A STROKE PER PT History of high cholesterol Acoustic neuroma FOLLOWS DR MITCHELL - UPCOMING RADIATION TREATMENT AFTER CATARACT SURGERY Chronic heart failure DVT prophylaxis Mitral valve disorder DENIES Permanent atrial fibrillation DX 2 YR AGO, NO HX CARDIOVERSION Obesity Anxiety History of TIA (transient ischemic attack) 2004 ,HX PT FOR, NO REMAINING RESIDUAL EFFECTS Hypertension HX BLOOD PRESSURE MEDICINE, ONCE A FIB DX - MED WAS D/C'D - PT REPORTS BLOOD PRESSURE USUALLY RUNS LOW AROUND 106/58 Diabetes INSULIN PUMP Parkinson disease Surgical History History of loop recorder per medical history/record. History of bunionectomy History of bilateral tubal ligation History of esophagogastroduodenoscopy (EGD) History of colonoscopy History of left knee replacement H/O breast biopsy 10/26/17 LMA#4. 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 S/P cholecystectomy HX S/P appendectomy HX Family History Mother Diabetes Congestive heart failure Colorectal cancer Hypertension Brother Congestive heart failure Colorectal cancer Sister Cancer Unknown Pancreatic cancer Son Family history of colonic polyps Social History Smoking Status: Never smoker Second Hand Exposure: No; Do You Dip or Chew Tobacco: No; Hx Alcohol Use: No Hx Substance Use: No Preferred Language: Albanian Communication Ability: Effective Visual Impairment: No Limitations Knowledge Management Advisor Required: No Beliefs That Will Affect Care: None marital status: Unknown Current Living Situation: Personal Care Facility Current Living Situation Comment: with help for 4 hours a day How many Children do You have: 2 Feels Safe at Home: Yes Assistive Devices: Wheelchair Review of Systems Review of Systems: CONST: Negative for fever, body aches and chills. HENT: Negative for neck pain/stiffness, headache, congestion, sore throat, swelling. EYES: Negative for discharge/pain or vision changes. RESP: Negative for cough/hemoptysis and shortness of breath. CV: Negative chest pain, difficulty breathing, palpitations. ABD: Negative pain, nausea, vomiting. : Negative increase frequency, dysuria, blood in urine or stool. MUSC: Right sided chest wall pain. SKIN: Negative rash, lesions/sores. NEURO: Negative headache, dizziness, weakness. AMS Physical Exam Physical Exam: GENERAL APPEARANCE NAD, activity normal for age, well developed/ well nourished, no cyanosis, pallor, or diaphoresis. EYES lids/conjunctiva normal. EARS/NOSE/THROAT Mucous membranes moist, nares normal, lips/teeth normal uvula midline without oral pharyngeal erythema, exudate or swelling TMs normal bilaterally. No lymphangitis/lymphedema. HEAD/NECK normocephalic atraumatic, no facial trauma, neck is supple. RESPIRATORY respiratory effort normal, speaks in full sentences, no tripod position, no accessory muscle use. Lungs clear to auscultation without rhonchi, wheezes, rales CARDIAC Regular rate and rhythm, no edema. ABDOMINAL Soft, ND/NT. No evidence of fluid wave. No pulsatile masses on exam, rebound tenderness, Cabrera sign or pain over Mcburney's point. MUSCLES/EXTREMITIES No abnormal range of motion, no swelling. SKIN Warm, pink and dry. No rashes, dermatoses, petechiae or lesions. NEUROLOGICAL Lethargic, responding to painful stimuli PSYCH Normal mood and affect. Judgement/competence is appropriate Results & Data Results & Data Vital Signs (Past 12 Hours) Vital Signs Temp Pulse Pulse Resp BP BP Pulse Ox 12/08/24 15:54 60 12/08/24 12:00 66 14 142/70 H 96 12/08/24 11:54 65 12/08/24 11:17 70 12 126/68 96 12/08/24 10:57 98 12/08/24 10:25 37.1 C 75 14 177/80 H 98 12/08/24 10:17 37.1 C 75 14 177/80 H 98 O2 Del Method 12/08/24 15:54 12/08/24 12:00 Room Air 12/08/24 11:54 12/08/24 11:17 Room Air 12/08/24 10:57 Room Air 12/08/24 10:25 Room Air 12/08/24 10:17 Room Air PG Care Time/CCT Total # of Minutes Spent Total Time Spent with Patient: Total time spent is greater than 50% in coordination of care (as documented) at patient's floor/unit and/or counseling patient: Coding Level of Care Code 02280 INT INP/OBS CARE 2/55MIN Diagnoses Multiple fractures of ribs, right side, initial encounter for closed fracture S22.41XA AMS (altered mental status) R41.82 Paroxysmal A-fib I48.0 Diabetes type 2, uncontrolled E11.65 Stroke (cerebrum) I63.9 Parkinsons disease G20 CHF (congestive heart failure) I50.9
[2024-12-08] MEDS ORDERED: INSULIN ASPART 100 UNITS/ML VIAL SC PRN (18:00)
[2024-12-08] MEDS ORDERED: INSULIN, Rapid-Acting PUMP SCH (21:00)
[2024-12-08] MEDS: ACETAMINOPHEN 500 MG TAB PO SCH (21:36)
[2024-12-08] MEDS: DOCUSATE SODIUM/SENNA 50/8.6MG TAB PO SCH (21:36)
[2024-12-08] MEDS: HEPARIN SOD 5,000 UNIT/0.5 ML VIAL SQ SCH (21:42)
[2024-12-08] MEDS: MIRTAZAPINE TAB 15 MG TAB PO SCH (21:43)
[2024-12-08] MEDS: MELATONIN 3 MG TAB PO SCH (21:43)
[2024-12-08] MEDS: ATORVASTATIN 20 MG TAB PO SCH (21:43)
[2024-12-08] MEDS: CARBIDOPA/LEVODOPA 25/100MG EXT REL TAB PO SCH (21:43)
[2024-12-08] MEDS ORDERED: GLUCOSE 40% GEL 15 GM TUBE PO PRN (21:47)
[2024-12-08] MEDS ORDERED: DEXTROSE 50% 50 ML SYRINGE IV PRN (21:47)
[2024-12-08] MEDS ORDERED: CARBOHYDRATES FOR HYPOGLYCEMIA PO PRN (21:47)
[2024-12-08] MEDS ORDERED: GLUCOSE 10 TAB/TUBE PO PRN (21:47)
[2024-12-08] MEDS ORDERED: GLUCAGON FOR INJ 1 MG VIAL SQ PRN (21:47)
[2024-12-08] MEDS: LANTUS PER UNIT CHARGE SQ SCH (23:36)
[2024-12-08] MEDS: INSULIN ASPART PER UNIT CHARGE SC ONE (23:36)
[2024-12-09] MEDS: BACLOFEN 10 MG TAB PO PRN (05:51)
[2024-12-09] MEDS: CARBIDOPA/LEVODOPA 25/100MG TAB PO SCH (05:54)
[2024-12-09] MEDS ORDERED: LANTUS PER UNIT CHARGE SQ SCH (09:00)
[2024-12-09] MEDS: INSULIN ASPART PER UNIT CHARGE SC SCH (09:28)
[2024-12-09] MEDS: CHOLECALCIFEROL 125 MCG (5,000 UNITS) TAB PO SCH (09:28)
[2024-12-09] MEDS: PANTOprazole 40 MG TAB PO SCH (09:28)
[2024-12-09] MEDS: SPIRONOLACTONE 25 MG TAB PO SCH (09:28)
[2024-12-09] MEDS: CLOPIDOGREL BISULFATE 75 MG TAB PO SCH (09:28)
[2024-12-09] MEDS: BUMETANIDE 1 MG TAB PO SCH (09:28)
[2024-12-09] MEDS: FLUTICASONE PROPIONATE NA SPR 16 GM BTL NAE SCH (09:29)
--- NOTE | 2024-12-09 09:38 | Hospitalist Progress Note ---
Date of Service December 09, 2024 Assessment & Plan (1) Multiple fractures of ribs, right side, initial encounter for closed fra cture: Plan: -pain control with Tylenol and morphine -incentive spirometer -PT/OT evaluation (2) AMS (altered mental status): Plan: -pt with h/o of transient alteration of awareness, confirmed by staff, pt has episodes were she appears sleeping but is aware -no metabolic etiology of symptoms found -CT head negative -con't to observe (3) Paroxysmal A-fib: Plan: -noted on EKG to be in afib rate controlled -not on anticoagulation (4) Diabetes type 2, uncontrolled: Plan: -insulin pump -lantus -pharm glycemic control (5) Stroke (cerebrum): Plan: -on plavix (6) Parkinsons disease: Plan: -con't carbadopa-levodopa (7) CHF (congestive heart failure): Plan: -bumex and spironolactone Admission and Anticipated Discharge Date Admission Date: December 08, 2024 Subjective No events overnight, Pt awake answering questions appropriatley Review of Systems Review of Systems: CONST: Negative for fever, body aches and chills. HENT: Negative for neck pain/stiffness, headache, congestion, sore throat, swelling. EYES: Negative for discharge/pain or vision changes. RESP: Negative for cough/hemoptysis and shortness of breath. CV: Negative chest pain, difficulty breathing, palpitations. ABD: Negative pain, nausea, vomiting. : Negative increase frequency, dysuria, blood in urine or stool. MUSC: Right sided chest wall pain. SKIN: Negative rash, lesions/sores. NEURO: Negative headache, dizziness, weakness. AMS Physical Exam Physical Exam: GENERAL APPEARANCE NAD, activity normal for age, well developed/ well nourished, no cyanosis, pallor, or diaphoresis. EYES lids/conjunctiva normal. EARS/NOSE/THROAT Mucous membranes moist, nares normal, lips/teeth normal uvula midline without oral pharyngeal erythema, exudate or swelling TMs normal bilaterally. No lymphangitis/lymphedema. HEAD/NECK normocephalic atraumatic, no facial trauma, neck is supple. RESPIRATORY respiratory effort normal, speaks in full sentences, no tripod position, no accessory muscle use. Lungs clear to auscultation without rhonchi, wheezes, rales CARDIAC Regular rate and rhythm, no edema. ABDOMINAL Soft, ND/NT. No evidence of fluid wave. No pulsatile masses on exam, rebound tenderness, Cabrera sign or pain over Mcburney's point. MUSCLES/EXTREMITIES No abnormal range of motion, no swelling. SKIN Warm, pink and dry. No rashes, dermatoses, petechiae or lesions. NEUROLOGICAL AOx3 PSYCH Normal mood and affect. Judgement/competence is appropriate Results & Data Results & Data Vital Signs (Past 12 Hours) Vital Signs Temp Pulse Pulse Resp BP Pulse Ox O2 Del Method 12/09/24 08:14 36.4 C L 59 L 20 105/62 96 Room Air 12/09/24 06:45 61 12/09/24 04:14 36.2 C L 57 L 20 112/69 96 Room Air 12/08/24 23:05 36.2 C L 58 L 20 127/73 95 Room Air PG Care Time/CCT Total # of Minutes Spent Total Time Spent with Patient: Total time spent is greater than 50% in coordination of care (as documented) at patient's floor/unit and/or counseling patient: Coding Level of Care Code 45003 SUB INP/OBS CARE 2/35MIN Diagnoses Multiple fractures of ribs, right side, initial encounter for closed fracture S22.41XA AMS (altered mental status) R41.82 Paroxysmal A-fib I48.0 Diabetes type 2, uncontrolled E11.65 Stroke (cerebrum) I63.9 Parkinsons disease G20 CHF (congestive heart failure) I50.9
--- NOTE | 2024-12-09 14:37 | Pharmacy Report ---
Pharmacy Glycemic Short Note 2 - Date of Service December 09, 2024 - Glycemic Short BSG Results (Last 24 hours): 12/08/24 12/08/24 12/09/24 14:44 21:41 08:21 POC Glucose 162 H 179 H 173 H 12/09/24 12:06 POC Glucose 204 H OUTPATIENT ANTIDIABETIC REGIMEN: * Insulin pump- (basal 19 units/day, 39 units TDD) CF 35, CR 9.5 * A1c 8.7% 08/21/24 ASSESSMENT: * Patient admitted with multiple rib fractures, transitioned off of insulin pump last PM * Will continue parameters close to home dosing for now. Monitor for changes PLAN FOR INPATIENT GLYCEMIC CONTROL: * Hold outpatient oral diabetes medications * Basal insulin * Lantus 9 units SQ BID * Bolus insulin * NovoLog per scale ACHS or Q6hrs while NPO * Goal Range: Low 110 mg/dL - High 160 mg/dL * Correction Factor: 35 mg/dL/unit * Nutritional / Prandial insulin per carb ratio of 1 unit per 10 grams CHO consumed
[2024-12-09] MEDS: ALUMINUM/MAGNESIUM/SIMETH (MAALOX MAX) 30 ML UDC PO PRN (16:11)
[2024-12-09] MEDS: MoRPHine SULFATE 2 MG/ML CARP IV PRN (19:20)
[2024-12-09] MEDS: LANTUS PER UNIT CHARGE SQ SCH (20:35)
[2024-12-10 06:36] LABS: Hematocrit (blood only) 37.9 % (37.0-47.0); Hemoglobin 12.5 g/dl (12.0-16.0); Mean Corpuscular Hemoglobin 28.9 pg (25.0-34.0); Mean Corpuscular Volume 87.5 fL (80.0-100.0); Platelet Count 168 K/uL (130-400); RDW Coefficient of Variation 14.2 % (11.5-14.5); RDW Standard Deviation 45.5 fL (36.4-46.3); Red Blood Count 4.33 M/uL (4.20-5.40); White Blood Count 4.69 K/ul (4.8-10.8)
[2024-12-10 06:56] LABS: BUN Creatinine Ratio 25.3 (10-20); Calcium 9.2 mg/dl (8.6-10.3); Creatinine Clr Calc Pharmacy 62.7 ml/min; Potassium 3.6 mmol/L (3.5-5.1)
--- NOTE | 2024-12-10 10:13 | Hospitalist Progress Note ---
Date of Service December 10, 2024 Assessment & Plan (1) Multiple fractures of ribs, right side, initial encounter for closed fra cture: Plan: -pain control with Tylenol and morphine -incentive spirometer -PT/OT evaluation (2) AMS (altered mental status): Plan: -pt with h/o of transient alteration of awareness, confirmed by staff, pt has episodes were she appears sleeping but is aware -no metabolic etiology of symptoms found -CT head negative -con't to observe -symptoms have resolved appears at baseline -plan to d/c on 12/11 (3) Paroxysmal A-fib: Plan: -noted on EKG to be in afib rate controlled -not on anticoagulation (4) Diabetes type 2, uncontrolled: Plan: -insulin pump -lantus -pharm glycemic control (5) Stroke (cerebrum): Plan: -on plavix (6) Parkinsons disease: Plan: -con't carbadopa-levodopa (7) CHF (congestive heart failure): Plan: -bumex and spironolactone Admission and Anticipated Discharge Date Admission Date: December 08, 2024 Subjective No events overnight, Pt awake answering questions appropriatley Review of Systems Review of Systems: CONST: Negative for fever, body aches and chills. HENT: Negative for neck pain/stiffness, headache, congestion, sore throat, swelling. EYES: Negative for discharge/pain or vision changes. RESP: Negative for cough/hemoptysis and shortness of breath. CV: Negative chest pain, difficulty breathing, palpitations. ABD: Negative pain, nausea, vomiting. : Negative increase frequency, dysuria, blood in urine or stool. MUSC: Right sided chest wall pain. SKIN: Negative rash, lesions/sores. NEURO: Negative headache, dizziness, weakness. AMS Physical Exam Physical Exam: GENERAL APPEARANCE NAD, activity normal for age, well developed/ well nourished, no cyanosis, pallor, or diaphoresis. EYES lids/conjunctiva normal. EARS/NOSE/THROAT Mucous membranes moist, nares normal, lips/teeth normal uvula midline without oral pharyngeal erythema, exudate or swelling TMs normal bilaterally. No lymphangitis/lymphedema. HEAD/NECK normocephalic atraumatic, no facial trauma, neck is supple. RESPIRATORY respiratory effort normal, speaks in full sentences, no tripod position, no accessory muscle use. Lungs clear to auscultation without rhonchi, wheezes, rales CARDIAC Regular rate and rhythm, no edema. ABDOMINAL Soft, ND/NT. No evidence of fluid wave. No pulsatile masses on exam, rebound tenderness, Cabrera sign or pain over Mcburney's point. MUSCLES/EXTREMITIES No abnormal range of motion, no swelling. SKIN Warm, pink and dry. No rashes, dermatoses, petechiae or lesions. NEUROLOGICAL AOx3 PSYCH Normal mood and affect. Judgement/competence is appropriate Results & Data Results & Data Vital Signs (Past 12 Hours) Vital Signs Temp Pulse Pulse Resp BP Pulse Ox O2 Del Method 12/10/24 08:30 36.9 C 60 20 106/59 L 96 Room Air 12/10/24 06:45 57 L 12/10/24 05:00 63 12/10/24 04:26 37.1 C 68 20 134/62 99 Room Air 12/09/24 23:30 37.0 C 55 L 20 113/60 94 Room Air PG Care Time/CCT Total # of Minutes Spent Total Time Spent with Patient: Total time spent is greater than 50% in coordination of care (as documented) at patient's floor/unit and/or counseling patient: Coding Level of Care Code 40314 SUB INP/OBS CARE 2/35MIN Diagnoses Multiple fractures of ribs, right side, initial encounter for closed fracture S22.41XA AMS (altered mental status) R41.82 Paroxysmal A-fib I48.0 Diabetes type 2, uncontrolled E11.65 Stroke (cerebrum) I63.9 Parkinsons disease G20 CHF (congestive heart failure) I50.9
[2024-12-10] MEDS: LANTUS PER UNIT CHARGE SQ SCH (21:43)
[2024-12-11] MEDS: BUMETANIDE 1 MG TAB PO SCH (08:50)
[2024-12-11] MEDS ORDERED: LANTUS PER UNIT CHARGE SQ SCH (09:00)
--- NOTE | 2024-12-11 09:26 | Hospitalist Progress Note ---
Date of Service December 11, 2024 Assessment & Plan (1) Multiple fractures of ribs, right side, initial encounter for closed fra cture: Plan: -pain control with Tylenol and morphine -incentive spirometer -PT/OT evaluation (2) AMS (altered mental status): Plan: -pt with h/o of transient alteration of awareness, confirmed by staff, pt has episodes were she appears sleeping but is aware -no metabolic etiology of symptoms found -CT head negative -con't to observe -symptoms have resolved appears at baseline -D/C once accepted back to care facility (3) Paroxysmal A-fib: Plan: -noted on EKG to be in afib rate controlled -not on anticoagulation (4) Diabetes type 2, uncontrolled: Plan: -insulin pump -lantus -pharm glycemic control (5) Stroke (cerebrum): Plan: -on plavix (6) Parkinsons disease: Plan: -con't carbadopa-levodopa (7) CHF (congestive heart failure): Plan: -bumex and spironolactone Admission and Anticipated Discharge Date Admission Date: December 08, 2024 Subjective No events overnight, Pt awake answering questions appropriatley Review of Systems Review of Systems: CONST: Negative for fever, body aches and chills. HENT: Negative for neck pain/stiffness, headache, congestion, sore throat, swelling. EYES: Negative for discharge/pain or vision changes. RESP: Negative for cough/hemoptysis and shortness of breath. CV: Negative chest pain, difficulty breathing, palpitations. ABD: Negative pain, nausea, vomiting. : Negative increase frequency, dysuria, blood in urine or stool. MUSC: Right sided chest wall pain. SKIN: Negative rash, lesions/sores. NEURO: Negative headache, dizziness, weakness. AMS Physical Exam Physical Exam: GENERAL APPEARANCE NAD, activity normal for age, well developed/ well nourished, no cyanosis, pallor, or diaphoresis. EYES lids/conjunctiva normal. EARS/NOSE/THROAT Mucous membranes moist, nares normal, lips/teeth normal uvula midline without oral pharyngeal erythema, exudate or swelling TMs normal bilaterally. No lymphangitis/lymphedema. HEAD/NECK normocephalic atraumatic, no facial trauma, neck is supple. RESPIRATORY respiratory effort normal, speaks in full sentences, no tripod position, no accessory muscle use. Lungs clear to auscultation without rhonchi, wheezes, rales CARDIAC Regular rate and rhythm, no edema. ABDOMINAL Soft, ND/NT. No evidence of fluid wave. No pulsatile masses on exam, rebound tenderness, Cabrera sign or pain over Mcburney's point. MUSCLES/EXTREMITIES No abnormal range of motion, no swelling. SKIN Warm, pink and dry. No rashes, dermatoses, petechiae or lesions. NEUROLOGICAL AOx3 PSYCH Normal mood and affect. Judgement/competence is appropriate Results & Data Results & Data Vital Signs (Past 12 Hours) Vital Signs Temp Pulse Pulse Resp BP Pulse Ox O2 Del Method 12/11/24 08:39 36.8 C 58 L 17 104/49 L 97 Room Air 12/11/24 03:00 36.6 C 53 L 20 137/77 92 Room Air 12/10/24 23:28 36.8 C 49 L 20 101/63 94 Room Air 12/10/24 21:45 Room Air 12/10/24 21:44 59 L PG Care Time/CCT Total # of Minutes Spent Total Time Spent with Patient: Total time spent is greater than 50% in coordination of care (as documented) at patient's floor/unit and/or counseling patient: Coding Level of Care Code 41183 SUB INP/OBS CARE 2/35MIN Diagnoses Multiple fractures of ribs, right side, initial encounter for closed fracture S22.41XA AMS (altered mental status) R41.82 Paroxysmal A-fib I48.0 Diabetes type 2, uncontrolled E11.65 Stroke (cerebrum) I63.9 Parkinsons disease G20 CHF (congestive heart failure) I50.9
--- NOTE | 2024-12-11 10:03 | Pharmacy Report ---
Pharmacy Glycemic Short Note 2 - Date of Service December 11, 2024 - Glycemic Short BSG Results (Last 24 hours): 12/10/24 12/10/24 12/10/24 11:59 17:07 20:25 POC Glucose 299 H 222 H 169 H 12/11/24 07:44 POC Glucose 229 H OUTPATIENT ANTIDIABETIC REGIMEN: * Insulin pump- (basal 19 units/day, 39 units TDD) CF 35, CR 9.5 * A1c 8.7% 08/21/24 ASSESSMENT: 12/11: * Sabine received 28 units of insulin yesterday (20 were basal) * Fasting BSG this AM elevated, will increase basal insulin by 25% and give all at lunch time to help ease transition back to insulin pump and discharge planning. * Carbohydrate ratio tightened as BSGs trending up throughout the day 12/09: * Patient admitted with multiple rib fractures, transitioned off of insulin pump last PM * Will continue parameters close to home dosing for now. Monitor for changes PLAN FOR INPATIENT GLYCEMIC CONTROL: * Hold outpatient oral diabetes medications * Basal insulin * Lantus 25 units SQ QDL * Bolus insulin * NovoLog per scale ACHS or Q6hrs while NPO * Goal Range: Low 110 mg/dL - High 160 mg/dL * Correction Factor: 30 mg/dL/unit * Nutritional / Prandial insulin per carb ratio of 1 unit per 7 grams CHO consumed
[2024-12-11] MEDS: LANTUS PER UNIT CHARGE SC SCH (12:42)
[2024-12-12 08:13] VITALS: RESP 18
--- NOTE | 2024-12-12 10:32 | Discharge Summary ---
Discharge Summary Date of Service December 12, 2024 Principal Dx & Hospital Course #1 = Principal Diagnosis (1) Multiple fractures of ribs, right side, initial encounter for closed fracture: -pain control with Tylenol and morphine -incentive spirometer -PT/OT evaluation (2) AMS (altered mental status): -pt with h/o of transient alteration of awareness, confirmed by staff, pt has episodes were she appears sleeping but is aware -no metabolic etiology of symptoms found -CT head negative -con't to observe -symptoms have resolved appears at baseline -D/C once accepted back to care facility (3) Paroxysmal A-fib: -noted on EKG to be in afib rate controlled -not on anticoagulation (4) Diabetes type 2, uncontrolled: -insulin pump -lantus -pharm glycemic control (5) Stroke (cerebrum): -on plavix (6) Parkinsons disease: -con't carbadopa-levodopa (7) CHF (congestive heart failure): -bumex and spironolactone Admission HPI Per Admitting Provider Pt is a 79 y/o female with pmh of DM, transient alteration of awareness, paroxysmal a-fib, cerebellar CVA, Parkinson's disease, diastolic CHF, who presents with right lower chest wall pain and AMS. Pt lives in a care facility and staff states 5 days ago she lost her balance and fell while standing up by her commode hitting her right chest and abdomen. She did not have any head strike or LOC. Pt does suffer from transient alternation of awareness and at times appears to be lethargic and sleeping as per the staff, but she is aware of her surroundings. This happens occasionally and she has been seen by neurology. Staff states this week she has been having increase in the number of episodes. In the ER CT head was negative. CT chest showed multiple right sided rib fractures. Her glucose was 160, EKG showed afib @77bpm. Her labs and UA showed no evidence of metabolic etiology for her AMS. Pt continued to be lethargic upon examination, however did respond to painful stimuli and had awareness of her body position. Discharge Exam GENERAL APPEARANCE NAD, activity normal for age, well developed/ well nourished, no cyanosis, pallor, or diaphoresis. EYES lids/conjunctiva normal. EARS/NOSE/THROAT Mucous membranes moist, nares normal, lips/teeth normal uvula midline without oral pharyngeal erythema, exudate or swelling TMs normal bilaterally. No lymphangitis/lymphedema. HEAD/NECK normocephalic atraumatic, no facial trauma, neck is supple. RESPIRATORY respiratory effort normal, speaks in full sentences, no tripod position, no accessory muscle use. Lungs clear to auscultation without rhonchi, wheezes, rales CARDIAC Regular rate and rhythm, no edema. ABDOMINAL Soft, ND/NT. No evidence of fluid wave. No pulsatile masses on exam, rebound tenderness, Cabrera sign or pain over Mcburney's point. MUSCLES/EXTREMITIES No abnormal range of motion, no swelling. SKIN Warm, pink and dry. No rashes, dermatoses, petechiae or lesions. NEUROLOGICAL AOx3 PSYCH Normal mood and affect. Judgement/competence is appropriate Discharge Plan Discharge Items Patient Disposition: Transfer Retirement Fac Reason For Visit: RIB FRACTURES, AMS Discharge Diagnosis: Rib fractures, AMS Condition on Discharge: Fair Activity: Resume your previous activity Non-emergency contact: Primary Care Provider Call non-emergency contact if: you have any medication questions Follow-up/Referrals: Damaris Vega MD [Primary Care Provider] - Diet: Regular and Carb Consistent or DM2 Addtl Attending Provider Instructions: Follow up with PMD in 2 weeks Pending Studies at Discharge: No Stand-Alone Forms: My New [facility] Skilled Items Patient informed of condition?: No DNR: No Discharge Level of Care: Skilled Communicable Disease: No Discharge Prognosis: Stable Lines: None Urinary Catheter: No Medications and DC Order Prescriptions: Continued insulin glargine [Lantus U-100 Insulin] 100 unit/mL solution 15 unit subcut QAM Qty: 10 1RF Rx Instructions: To be used for pump failure. Inject 15 units of Lantus (DME) BD SafetyGlide Insulin Syringe 0.5 mL 29 gauge x 1/2" syringe See Rx Instructions .Route Qty: 100 1RF Rx Instructions: Inject up to 4x a day if pump failed cholecalciferol (vitamin D3) 125 mcg (5,000 unit) capsule 125 mcg PO DAILY Qty: 90 1RF insulin lispro [Humalog U-100 Insulin] 100 unit/mL solution See Rx Instructions subcut .COMPLEX Qty: 72 3RF Rx Instructions: via insulin pump subcutaneously; continuously MDD 80 units atorvastatin 20 mg tablet 20 mg PO HS (DME) FreeStyle Ruben 2 Sensor Kit See Rx Instructions .ROUTE .MEDSUPPLY Qty: 1 Rx Instructions: As directed (DME) OneTouch Verio test strips Strip See Rx Instructions .ROUTE .MEDSUPPLY Qty: 10 Rx Instructions: Test blood sugar once daily PRN clopidogrel [Plavix] 75 mg Tablet 75 mg PO DAILY spironolactone 25 mg tablet 25 mg PO DAILY baclofen 10 mg tablet 10 mg PO BID PRN (Reason: BACK SPASMS) mirtazapine 7.5 mg tablet 7.5 mg PO HS melatonin 10 mg Tablet 10 mg PO HS bumetanide 0.5 mg tablet 0.5 mg PO DAILY PRN (Reason: WT GAIN 3LBS OR GREATER) Rx Instructions: TAKE IN ADDITION TO ROUTINE FOR EDEMA esomeprazole magnesium 40 mg capsule,delayed release(DR/EC) 40 mg PO DAILY bumetanide 1 mg Tablet 0.5 mg PO SuTuThSa@0900 Qty: 10 0RF bumetanide 1 mg Tablet 0.75 mg PO MoWeFr@0900 Qty: 10 0RF alum-mag hydroxide-simeth [Maalox Advanced] 200-200-20 mg/5 mL suspension 15 ml PO Q6H PRN (Reason: indigestion) Qty: 3000 0RF sennosides-docusate sodium [Senna Plus] 8.6-50 mg Tablet 1 tab-cap PO BID nystatin 100,000 unit/gram Powder 1 applic TOPICAL BID PRN (Reason: RASH/IRRITATION IN ABD FOLDS) Rx Instructions: ABDOMINAL FOLDS AND UNDER BREASTS Flonase Sensimist 27.5 mcg/actuation [place],Suspension 1 spray INTRANASAL DAILY Rx Instructions: into each nostril menthol-zinc oxide [Calmoseptine] 0.44-20.6 % Ointment 1 applic TOPICAL TID PRN (Reason: PROTECTANT ON BUTTOCKS) acetaminophen 500 mg Tablet 1,000 mg PO BID MDD 3gm/24h PRN (Reason: pain/fever) acetaminophen 500 mg Tablet 1,000 mg PO HS carbidopa-levodopa 25-100 mg tablet extended release 2 tab PO PM Rx Instructions: 2 tab orally ;TAKE NIGHTLY AT 8 PM carbidopa-levodopa 25-100 mg tablet 2 tab PO UD Rx Instructions: Take 2 tablets by mouth daily at 7:00, 11:00, 16:00 Discharge Orders: Discharge Order (Routine); Ordered 12/12/24 Ordered By: Hans Salinas Admission Data Admit Date/Time: 12/08/24 16:50 Attending Provider: Hans Salinas Admit Provider: Hans Salinas Primary Care Provider: Damaris Vega Other Providers: Hans Salinas; Robson Dawkins at [facility] Stay Data Consultations 12/08/24 15:59 ED Decision to Admit Stat Diagnostic Imagining Performed 12/08/24 10:57 CT abd pelvis IV con only Stat CT cervical spine wo con Stat CT chest diagnostic w con Stat CT head/brain wo con Stat Pending Results Patient Have Any Pending Studies at Discharge: No Discharge Instructions Given to Patient (Per Discharging Provider) Follow up with PMD in 2 weeks Total Time Total Time Spent Total Time Spent (In Minutes): 50 Coding Level of Care Code 79976 INP/OBS DISCH >30 MIN Diagnoses Multiple fractures of ribs, right side, initial encounter for closed fracture S22.41XA AMS (altered mental status) R41.82 Paroxysmal A-fib I48.0 Diabetes type 2, uncontrolled E11.65 Stroke (cerebrum) I63.9 Parkinsons disease G20 CHF (congestive heart failure) I50.9
[2024-12-12 11:30] VITALS: PULSE 64; TEMP 97.9; O2SAT 96
[2024-12-12 14:06] VITALS: BP 126/66
--- NOTE | 2024-12-13 07:57 | Coding Query ---
CODING QUERY FOR UNCONTROLLED DIABETES To promote full compliance with coding requirements relating to patient care, provider participation is requested in all cases of hospital ward clerk uncertainty. Please assist us with the question(s) below: Coding Question: The term uncontrolled Diabetes was used throughout the record. To be able to code this diagnosis properly, could you please clarify the diagnosis below: ( x ) Uncontrolled Diabetes meaning hypoglycemia ( ) Uncontrolled Diabetes meaning hyperglycemia ( ) Other (please specify) Principal Diagnosis: "that condition established after study, to be chiefly responsible for occasioning the admission of the patient to the hospital for care." Co-Existing Principal Diagnosis: "when two or more diagnoses equally meet the criteria for principal diagnosis as determined by the circumstances of admission, diagnostic work up, and/or therapy provided, and the Alphabetic Index, Tabular List, or another coding guideline does not provide sequencing direction, any one of the diagnoses may be sequenced first." "When the physician has documented what appears to be a current diagnosis in the body of the record, but has not included the diagnosis in the final diagnostic statement, the physician should be asked whether the diagnosis should be added." (Source Coding Clinic 2 QTR90. p3-4) EMA
== END 2024-12-12 14:42 | DRG 184 ==
LOC: SUATTDRO → ED 10:23 → INTOOBSV 16:50 → EDINP 16:50 → 2N 20:15